=== PATIENT | female | born 1950 | race Caucasian/White ===

== ENCOUNTER 2019-09-23 16:39 | Inpatient (IN) | payer MEDICARE, SELFPAY ==
[2019-09-23] VITALS (11 sets, daily range): BP systolic 98–117; BP diastolic 51–71; PULSE 105–119; RESP 20–25; TEMP 36.3; O2SAT 89–99; BMI 68.8
--- NOTE | ~2019-09-23 | NM_ITS ---
EXAMINATION: NM lung vent and perfusion EXAM DATE: 09/25/2019 15:00 INDICATION: Pulmonary hypertension. Respiratory failure. TECHNIQUE: A ventilation perfusion lung scan was performed. The patient inhaled 10.1 mCi xenon-133 w hile images were acquired. The patient was then injected with 4.9 mCi technetium 99m MAA and reimage d. Comparison is made to prior examination from 03/22/2017. Correlation was made with chest x-ray 09/25. FINDINGS: There is normal single breath and equilibrium phase with retained tracer on the washout pha se of the ventilation scan, some air trapping. Some heterogeneity to the perfusion overall with 2 mor e focal subsegmental regions of decreased activity in right upper lobe, lingula. Previous scan had a normal appearing perfusion results. Intermediate probability pulmonary embolism. IMPRESSION: Intermediate probability pulmonary embolism. Reviewed, dictated and finalized at location B. ACE MECHANIC
--- NOTE | ~2019-09-23 | XR_ITS ---
XR knee LT 2V, XR knee RT 2V 09/25/2019 15:16 Indication: Bilateral knee pain. Lymphedema. Procedure: 2 views of each knee Comparison: No prior studies for comparison. Findings: There is severe bilateral tricompartment osteoarthritis of the knees. No significant joint effusion. No acute fracture or traumatic malalignment. Moderate diffuse subcutaneous edema. 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 Reviewed, dictated and finalized at location A. 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
--- NOTE | ~2019-09-23 | US_ITS ---
EXAMINATION: US right upper quadrant EXAM DATE: 09/24/2019 13:28 INDICATION: Elevated liver function tests. TECHNIQUE: Multiple grayscale and Doppler images of the abdomen right upper quadrant were obtained (b y a technologist who performed the scan) and subsequently reviewed. There is no prior study for madelyn burton. FINDINGS: The pancreatic head and body are normal in appearance. The pancreatic tail is not visualized. The l iver has normal echogenicity and contour. There are no focal liver lesions identified. There is no evidence of intrahepatic biliary duct dilation. Portal venous flow was seen in the hepatopedal, nor mal direction and has normal Doppler waveform. No right-sided hydronephrosis. Common bile duct measures 5 mm, which is normal. The gallbladder wall is mildly thickened. Mild amoun t of gallbladder distention. No cholelithiasis or pericholecystic fluid. Technologist performing exa m reports patient did not demonstrate sonographic Sexton's sign. Please note that this sign is less reliable in patients who have received pain medication. IMPRESSION: Mildly thickened gallbladder wall measurement, nonspecific finding. No cholelithiasis, bi liary duct dilation, pericholecystic fluid or sonographic Sexton's sign. Reviewed, dictated and finalized at location A. ER SUPERVISOR IMPRESSION: Mildly thickened gallbladder wall measurement, nonspecific finding. No cholelithiasis, biliary duct dilation, pericholecystic fluid or sonographic Sexton's sign.
--- NOTE | ~2019-09-23 | XR_ITS ---
EXAMINATION: XR chest 2V EXAM DATE: 09/25/2019 15:15 INDICATION: Follow-up CHF, pneumonia. TECHNIQUE: Frontal and lateral projections of the chest obtained and reviewed. Comparison is made to prior examination from 09/23/2019. FINDINGS: There is cardiomegaly. Pulmonary vascular congestion. No confluent consolidation, pneumoth orax or pleural effusion suspected. There are no osseous abnormalities identified. IMPRESSION: Cardiomegaly, pulmonary vascular congestion. Reviewed, dictated and finalized at location B. NOL QUALITY LEADER
--- NOTE | ~2019-09-23 | XR_ITS ---
EXAMINATION: XR chest 1V portable EXAM DATE: 09/23/2019 18:11 INDICATION: Shortness of breath, hypoxia. TECHNIQUE: Portable AP frontal chest x-ray was obtained. Comparison is made to prior examination from 03/22/2017. FINDINGS: Mild cardiomegaly and pulmonary vascular congestion. Possible mild pulmonary edema. No conf luent consolidation or pneumothorax. No sizable pleural effusion. There are mild bony degenerative ch anges. IMPRESSION: Interval development of findings suspicious for mild CHF exacerbation. Reviewed, dictated and finalized at location A. ERCIAL CLEANER IMPRESSION: Interval development of findings suspicious for mild CHF exacerbati on.
--- NOTE | ~2019-09-23 | US_ITS ---
EXAMINATION:US venous doppler LE BI INDICATION:Leg swelling TECHNIQUE: Multiple grayscale, color flow and Doppler images of the lower extremity deep venous syste ms were obtained and reviewed. COMPARISON:No prior studies for comparison FINDINGS: The common femoral, superficial femoral and popliteal veins demonstrate normal respiratory variation, augmentation and compressibility. Color flow is also seen within the posterior tibial, gr eater saphenous and profunda veins. Peroneal veins not visualized due to patient body habitus. IMPRESSION: 1: No lower extremity deep venous thrombosis. Reviewed, dictated and finalized at location A. EL REGISTERED NURSE PACU
--- NOTE | ~2019-09-23 | US_ITS ---
EXAMINATION: US arterial ankle brachial ind EXAM DATE: 09/24/2019 13:32 INDICATION: Toe discoloration. TECHNIQUE: Segmental pressures and plethysmographic and Doppler waveforms of the brachial and lower e xtremity arteries were obtained. There is no prior study for comparison. FINDINGS: Right and left brachial artery pressures of 102 mm Hg and 115 mm Hg, respectively, are concordant (no rmal difference <= 30 mmHg). RIGHT LEG: The ankle-brachial index (EDEN) is 1.17 (normal >= 0.9-1). The great toe-brachial index (TBI) is 0.64 (normal >= 0.65). The lower extremity ratios, segmental pressure gradients as follows; Dorsalis pedis: 1.17 (134 mmHg). Posterior tibial: 1.17 (135 mmHg). (Normal gradients <= 20-30 mmHg between adjacent levels on the same leg or the same levels on the two legs). Arterial waveforms are biphasic. LEFT LEG: The ankle-brachial index (EDEN) is 1.35 (normal >= 0.9-1). The great toe-brachial index (TBI) is 0.74 (normal >= 0.65). The lower extremity ratios, segmental pressure gradients as follows; Dorsalis pedis: 1.35 (155 mmHg). Posterior tibial: 130 (150 mmHg). (Normal gradients <= 20-30 mmHg between adjacent levels on the same leg or the same levels on the two legs). Arterial waveforms are biphasic. IMPRESSION: 1. Right ankle-brachial index 1.17, normal. 2. Left ankle-brachial index 1.35, normal. 3. Segmental pressures as above. Reviewed, dictated and finalized at location A. F NURSE
--- NOTE | 2019-09-23 17:13 | ED.URI ---
HPI - URI/Sore Throat General Chief Complaint: Upper Respiratory Infection Stated Complaint: sob Time Seen by Provider: 09/23/19 17:10 Source: patient and RN notes reviewed Mode of arrival: EMS Limitations: no limitations History of Present Illness HPI Narrative: Pt is a 69 y/o female who presents to the ED, via EMS from her home in [place], with c/o SOB for the past 3 days which was worse prior to EMS arrival. Pt notes that she has had a green/yellow productive cough for at least a week. She also has had N/V at the weirdest times , but denies any emesis today, and reports a grabbing ABD pain that lets off (no ABD pain in the ED room). Pt denies CP. The catheter she is wearing was put in place in the ED and she doesn't normally have one. Pt has a Hx of COPD, though she is not on home O2 (she did used to be, but the prescription ran out and she wasn't unable to make it to a new sleep study) and she denies smoking. She also has a Hx of HTN, nighttime incontinence, lymphedema, being on Lasix, being on a baby ASA, and not walking since January 2019 (she is unsure what led to her no longer walking). Pt's PCP is Dr. Stewart. elicited complaint: other (SOB) Pertinent past history: COPD Onset (ago): day(s) (3) Associated symptoms: abdominal pain ( grabbing characterization), nausea and vomiting Related Data Home Medications Medication Instructions Recorded Confirmed albuterol sulfate 90 mcg/actuation 2 inhalation INHALATION BID gm 09/01/19 09/01/19 aerosol inhaler atorvastatin 80 mg tablet 80 mg PO DAILY 09/01/19 09/01/19 cyclobenzaprine 10 mg tablet 10 mg PO TID PRN 09/01/19 09/01/19 furosemide 40 mg tablet 20 mg PO QAM tablet 09/01/19 09/01/19 insulin detemir U-100 100 unit/mL 100 unit SUB-Q DAILY 09/01/19 09/01/19 subcutaneous solution oxybutynin chloride 5 mg tablet 5 mg PO DAILY 09/01/19 09/01/19 Allergies Allergy/AdvReac Type Severity Reaction Status Date / Time NSAIDS (Non-Steroidal Allergy Unknown unknown Verified 09/01/19 14:57 Anti-Inflamma Review of Systems Review of Systems: All systems reviewed & are unremarkable except as noted in HPI and below Cardiovascular: Cardiovascular: Denies chest pain Respiratory: Respiratory: Reports cough (green/yellow production) and Reports dyspnea Gastrointestinal: Gastrointestinal: Reports abdominal pain ( grabbing characterization), Reports nausea and Reports vomiting PMFSH Past Medical History Medical History (Updated 09/24/19 @ 00:36 by Maki Sahu MD) CHF (congestive heart failure) CKD (chronic kidney disease), stage III COPD (chronic obstructive pulmonary disease) Degenerative joint disease Depression Depression with anxiety With history of panic attacks Diabetic polyneuropathy Diverticulosis Essential (primary) hypertension Hiatal hernia Hyperlipidemia Irritable bowel syndrome Lymphedema of both lower extremities Morbid obesity with BMI of 60.0-69.9, adult CIRILO (obstructive sleep apnea) Overactive bladder With chronic urinary incontinence Beal catheter placed in the ER Panic disorder [episodic paroxysmal anxiety] Polyarthritis of multiple sites Restless leg syndrome Sciatica Spondylosis Type 2 diabetes mellitus treated with insulin Surgical History Surgical History (Updated 09/23/19 @ 18:04 by Viktoriya Merlos) No pertinent past surgical history Social History Social History Smoking status: Never smoker Second hand tobacco smoke exposure: Yes Alcohol intake: former Substance use: current Substance use type: marijuana Other substance usage details: XANAX Gender identity (if verbalized by the patient): Female Spiritual care concerns: No Agree to blood products: Yes Exam Const: General: no acute distress and alert Nutritional Appearance: obese morbidly obese Orientation/consciousness: patient oriented x3 HENMT: Head: normocephalic, atraumatic and no acral cyan
--- NOTE | 2019-09-23 17:15 | PC.NURSE ---
pts bed changed of foul smelling urine soaked chux pads
--- NOTE | 2019-09-23 17:21 | ECG_ITS ---
Measurements Intervals [place] Rate: 88 P: 18 WY: 127 QRS: -3 QRSD: 94 T: 11 QT: 322 QTc: 390 Interpretive Statements SINUS RHYTHM BORDERLINE T WAVE ABNORMALITY- INFERIOR LEADS BORDERLINE ECG Electronically Signed On 09-23-2019 17:45:26 VELVET WEAVER by Dario Dudley D.O.
[2019-09-23] MEDS: IPRATROPIUM BR 0.02% INH SOLN 0.5 MG/2.5 ML VIAL INHALATION (17:35)
[2019-09-23] MEDS: ALBUTEROL SULFATE NEB 2.5 MG/0.5 ML INH 5 MG INHALATION (17:35)
[2019-09-23 17:45] LABS: Alveolar/Arterial O2 Gradient 61.8 mmHg; Carboxyhemoglobin 1.4 % THb (0-2.0); Fractional Inspired Oxygen 28 %; HCO3 ABG 25.8 mEq/l (22.0-26.0); Methemoglobin ABG 0.3 %THb (0-1.5); Oxygen Content ABG 10.6 %vol (16.0-22.0); Oxygen Saturation ABG 92.9 % (95.0-100.0); Oxyhemoglobin 89.5 % THb (90.0-100.0); PCO2 ABG 54.6 mmHg (35.0-45.0); PO2 ABG 73.4 mmHg (80.0-100.0); PO2 FiO2 Ratio Arterial Blood 2.62 %; Reduced Hemoglobin 8.8 %THb (0-5.0); Total Hemoglobin 8.3 g/dL (12.0-18.0); pH ABG 7.292 (7.350-7.450)
[2019-09-23 17:46] LABS: Device NASAL CANNULA; Modified Allen's Test Pass; Site Drawn LEFT RADIAL
[2019-09-23 17:48] LABS: Basophils Absolute Auto 0.1 K/mm3 (0.0-0.1); Basophils Percent Auto 0.3 % (0.2-1.2); Hematocrit 27.9 % (37.0-47.0); Hemoglobin 7.3 g/dL (12.0-15.0); Immature Granulocyte Absolute 0.39 K/mm3 (0.00-0.031); Immature Granulocyte Percent A 1.4 % (0-0.5); Lymphocytes Absolute Auto 1.14 K/mm3 (0.9-3.2); Mean Corpuscular HGB Conc 26.2 g/dl (32-36); Mean Corpuscular Hemoglobin 20.5 pg (26-34); Mean Corpuscular Volume 78.4 fl (80-100); Mean Platelet Volume 10.4 fl (7.4-10.4); Monocytes Absolute Auto 1.9 K/mm3 (0.1-0.6); Monocytes Percent Auto 6.7 % (2.6-8.5); Neutrophils Absolute Auto 24.7 K/mm3 (1.3-6.7); Neutrophils Percent Auto 87.6 % (45.5-73.1); Nucleated Red Blood Cells Perc 0.1 % (0.0-0.2); Platelet Count Result 387 k/mm3 (150-375); Red Blood Count 3.56 M/mm3 (4.2-5.4); White Blood Count 28.2 K/mm3 (4.5-10.0)
[2019-09-23 17:53] LABS: Add Urine Microscopic? YES; Appearance Urine Cloudy (Clear); Bacteria Urine Trace /hpf; Bilirubin Urine Negative (Negative); Color Urine Yellow (Yellow); Glucose Urine UA Negative (Negative); Ketones Urine Negative (Negative); Leukocyte Esterase Ur Trace LEU/UL (Negative); Mucus Urine Rare /lpf; Nitrate Urine Negative (Negative); Protein Urine 2+ mg/dL (Negative); WBC Clumps Urine Present /HPF; WBC Urine 16-20 /hpf
[2019-09-23 17:57] LABS: Blood Urine Negative (Negative)
[2019-09-23 18:00] LABS: INR 1.5; Prothrombin Time 17.6 Seconds (11.1-14.7)
[2019-09-23 18:01] LABS: Partial Thromboplastin Time 35.4 SECONDS (22.3-36.8)
[2019-09-23 18:02] LABS: Anisocytosis 1+ (NORMAL); Hypochromasia 2+ (NORMAL); Platelet Estimate Increased (Adequate); Stomatocytes 1+ (NORMAL)
[2019-09-23 18:03] LABS: Alanine Aminotransferase 522 U/L (4-35); Albumin Level 3.3 g/dL (3.5-5.1); Alkaline Phosphatase 151 U/L (38-126); Bilirubin,Total 1.3 mg/dL (0.2-1.3); Blood Urea Nitrogen 59 mg/dL (7-17); Calcium 8.6 mg/dL (8.4-10.2); Carbon Dioxide 24 mmol/L (22-30); Chloride 93 mmol/L (98-107); Estimated Glomerular Filt Rate 28; Glucose 81 mg/dL (65-105); Lactic Acid Reflex 4.3 mmol/L (0.7-2.1); Potassium 5.1 mmol/L (3.4-5.0); Sodium 132 mmol/L (137-145)
[2019-09-23 18:13] LABS: Aspartate Amino Transferase 1167 U/L (14-36)
[2019-09-23 18:16] LABS: NT Pro B Type Natriuretic Pept 14600 PG/ML (5-100); Troponin I 0.075 ng/mL (0.000-0.034)
[2019-09-23] MEDS: FUROSEMIDE INJ 40 MG/4 ML VIAL IV PUSH (18:50)
[2019-09-23 19:01] LABS: Creatine Kinase 107 U/L (30-135)
[2019-09-23 19:26] LABS: Iron 18 ug/dL (37-170)
--- NOTE | 2019-09-23 19:35 | PC.NURSE ---
Assumed care of patient from PATTI Arceo. Pt sleeping in stretcher with BiPAP in place in NAD, VSS, call light within reach, will continue to monitor.
[2019-09-23 19:36] LABS: Percent Iron Saturation 6 % (20-50)
[2019-09-23 20:10] LABS: Folic Acid 12.8 ng/mL (2.76->20); Vitamin B12 > 1000.0 pg/mL (239-931)
[2019-09-23 20:46] LABS: Reflex Lactic Acid Yes or No Add Lactic
[2019-09-23 21:45] LABS: Lactic Acid 4.1 mmol/L (0.7-2.1)
[2019-09-23 21:59] LABS: Troponin I 0.075 ng/mL (0.000-0.034)
--- NOTE | 2019-09-23 22:34 | PM.IMHP ---
H&P: HPI History of Present Illness Chief complaint: Shortness of breath Narrative: Delilah Ludwig is a 69 year old female with a past medical history of morbid obesity with BMI greater than 60, diabetes mellitus, and CHF who presented to the ER with increased shortness of breath and upper respiratory symptoms. Source of information is ER records and outpatient visit records. The patient is unable to provide any history. Family history was obtained by the nursing staff from the patient's significant other. The patient arouses to her name and physical stimulation. However, the patient is not answering questions. Multiple attempts were made to arouse the patient but she would not answer questions. She did stick her tongue out at me when I requested but otherwise was refusing to follow commands. Nursing staff had to hold the patient's arm while blood was being drawn because she was jerking away. The patient had evidently complained of discoloration of her toes when she would sit with her legs elevated. An outpatient EDEN was ordered by her primary care physician of few days ago but has not been completed. The patient was evidently soiled with significant urine and or stool in the ER. The patient has not ambulated in the last 6 months or so The patient has multiple dental caries and has not followed up with a dentist. Her CPAP at home is broken in his missing multiple parts. The patient is supposed to have an outpatient sleep study but requires a wheelchair van for transport. Patient's significant other reports that the wheelchair transport services will not run the hours of a sleep study. Review of Systems Review of Systems: ROS unobtainable: unobtainable due to mental condition PMFSH Past Medical History Medical History (Updated 09/24/19 @ 01:40 by Trista Garcia DO) CHF (congestive heart failure) CKD (chronic kidney disease), stage III COPD (chronic obstructive pulmonary disease) Degenerative joint disease Depression Depression with anxiety With history of panic attacks Diabetic polyneuropathy Diverticulosis Essential (primary) hypertension Hiatal hernia Small hiatal hernia noted on barium swallow performed due to dysphagia and sensation of globus. Of the mid distal esophagus, repeated mid distal esophageal reflux Hyperlipidemia Irritable bowel syndrome Lymphedema of both lower extremities Morbid obesity with BMI of 60.0-69.9, adult CIRILO (obstructive sleep apnea) Overactive bladder With chronic urinary incontinence Beal catheter placed in the ER Panic disorder [episodic paroxysmal anxiety] Polyarthritis of multiple sites Restless leg syndrome Sciatica Spondylosis Type 2 diabetes mellitus treated with insulin Surgical History Surgical History (Updated 09/23/19 @ 18:04 by Viktoriya Merlos) No pertinent past surgical history Social History Social History (Updated 09/24/19 @ 01:17 by Trista Garcia, DO) Social History: The patient lives at home with her long-term significant other. 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 She has never smoked but does have significant secondhand smoke exposure. She drinks a small amount of alcohol on rare occasion. She does have a history of marijuana use. The patient is wheelchair-bound. Primary care physician: Dr. Braulio Stewart Code status: Full code per EMR Smoking status: Never smoker Second hand tobacco smoke exposure: Yes Alcohol intake: former Substance use: current Substance use type: marijuana Other substance usage details: XANAX Gender identity (if verbalized by the patient): Female Spiritual care concerns: No Agree to blood products: Yes Meds Home Medications and Allergies Home Medications Medication Instructions Recorded Confirmed Type lisinopril 20 mg tablet 20 mg PO DAILY #90 tablet 07/17/19 09/24/19 Rx ropinirole 2 mg tablet 2 mg PO BID #180 tablet 07/21/19 09/24/19 Rx esomeprazole magnesium 20 mg 20 mg PO DAILY #90 cap
[2019-09-23] MEDS: SODIUM CHLORIDE 0.9% IV 500 ML IV CONT (23:45)
[2019-09-24] VITALS (28 sets, daily range): BP systolic 90–122; BP diastolic 43–76; PULSE 93–122; RESP 20–25; TEMP 36.1–36.8; O2SAT 93–100
--- NOTE | 2019-09-24 | ECHO_ITS ---
Patient Info Name: Delilah Ludwig Age: 69 years : 1950 Gender: Female Ht: 60 in Wt: 352 lbs BSA: 2.72 m2 HR: 72 bpm BP: 99 / 46 mmHg Heart Rhythm: Sinus Rhythm Technical Quality: Fair Exam Date: 09/24/2019 12:00 PM Exam Location: [facility] Card Pulmonary Patient Status: Inpatient Admit Date: 09/23/2019 Staff Ordering Physician: Trista Garcia DO Sorter/Assay Tech: Maine Rivas RDCS Attending Provider: Erick Bolden MD Referring Physician: Jose DORSEY; Exam Type: CA echo doppler color flow Study Info Complete two-dimensional, color flow and Doppler transthoracic echocardiogram is performed. Appropriate Use Criteria Pt on cpap. Summary 1. Left ventricular chamber dimension is normal. 2. Left ventricular systolic function is normal, estimated at 55-60%. 3. There is mildly increased left ventricular wall thickness. 4. The left ventricular diastolic function is grade I diastolic dysfunction. 5. Right ventricular chamber dimension is mildly enlarged. 6. Right ventricular systolic function is reduced. 7. D-shaped septum in systole consistent with RV pressure overload. 8. There is mild mitral valve regurgitation. 9. There is mild tricuspid valve regurgitation. 10. Moderate pulmonary hypertension, estimated pulmonary arterial systolic pressure is 50 mmHg. 11. There is mild pulmonic regurgitation. 12. Recommend CT with PE protocol or V/Q scan to R/O PE given RV dysfunction, RV pressure overload and symptoms of SOB. Left Ventricle Left ventricular chamber dimension is normal. Left ventricular systolic function is normal, estimated at 55-60%. There is mildly increased left ventricular wall thickness. The left ventricular diastolic function is grade I diastolic dysfunction. Right Ventricle Right ventricular chamber dimension is mildly enlarged. Right ventricular systolic function is reduced. D-shaped septum in systole consistent with RV pressure overload. Left Atria Left atrial chamber dimension is mildly enlarged. Right Atria Right atrial chamber dimension is normal. Aortic Valve The aortic valve is trileaflet. There is mild aortic valve sclerosis. There is no aortic valve stenosis. There is trace aortic valve regurgitation. Pulmonic Valve The pulmonic valve is normal. There is no pulmonic valve stenosis. There is mild pulmonic regurgitation. Mitral Valve The mitral valve has normal leaflets. There is no mitral valve stenosis. There is mild mitral valve regurgitation. Tricuspid Valve The tricuspid valve leaflets are normal. There is no significant tricuspid valve stenosis. There is mild tricuspid valve regurgitation. Moderate pulmonary hypertension, estimated pulmonary arterial systolic pressure is 50 mmHg. Other Findings Recommend CT with PE protocol or V/Q scan to R/O PE given RV dysfunction, RV pressure overload and symptoms of SOB. Pericardium/Pleural The pericardium appears normal. There is no pericardial effusion. Inferior Vena Cava Normal inferior vena cava with no collapse upon inspiration consistent with elevated right atrial pressure, 15 mmHg. Aorta The aortic root size at the sinus of Valsalva is normal. Left Ventricular Outflow Tract Name Value Normal LVOT 2D
[2019-09-24 00:05] LABS: Alveolar/Arterial O2 Gradient 102.3 mmHg; Base Excess ABG 0.5 mEq/l (+/-2.0); Carboxyhemoglobin 0.6 % THb (0-2.0); Fractional Inspired Oxygen 35 %; HCO3 ABG 26.8 mEq/l (22.0-26.0); Methemoglobin ABG 0.7 %THb (0-1.5); Oxygen Content ABG 9.6 %vol (16.0-22.0); Oxygen Saturation ABG 95.6 % (95.0-100.0); Oxyhemoglobin 92.2 % THb (90.0-100.0); PCO2 ABG 53.1 mmHg (35.0-45.0); PO2 ABG 85.5 mmHg (80.0-100.0); PO2 FiO2 Ratio Arterial Blood 2.44 %; Reduced Hemoglobin 6.5 %THb (0-5.0); pH ABG 7.321 (7.350-7.450)
[2019-09-24 00:08] LABS: Device NON-INVASIVE VENT; Modified Allen's Test Pass; Non-Invasive Expiratory Pressure 8 CMH2O; Non-Invasive Inspiratory Pressure 16 CMH2O; Non-Invasive Vent Rate 20 /MIN; Site Drawn RIGHT RADIAL; Total Hemoglobin 7.3 g/dL (12.0-18.0)
[2019-09-24 01:02] LABS: Troponin I 0.073 ng/mL (0.000-0.034)
[2019-09-24 01:11] LABS: Glucose Point of Care 107 (65-105)
[2019-09-24 01:47] LABS: Lactic Acid Reflex 2.5 mmol/L (0.7-2.1)
--- NOTE | 2019-09-24 01:48 | ADMGEN ---
This patient, Delilah Ludwig, was admitted to IMU Room 211-01. Patient/family oriented to hospital policies and general routines including ID bracelet, bed and alarms, visiting hours, pain management, procedures, bathroom and other care routines, personal items, smoking policy, room service/diet, and visiting hours. Valuables list has been completed. Information on how to activate the Rapid Response Team has been discussed. Patient/Family are encouraged to report perceived risks to care and to ask questions if they do not understand what they are told or what they should do.
[2019-09-24] MEDS: LACTATED RINGERS 1,000 ML 125 ML IV CONT (01:55)
[2019-09-24] MEDS: IPRATROPIUM BR 0.02% INH SOLN 0.5 MG/2.5 ML VIAL INHALATION ×4 (02:45→20:20)
[2019-09-24] MEDS: ALBUTEROL SULFATE NEB 2.5 MG/0.5 ML INH 5 MG INHALATION ×4 (02:45→20:20)
[2019-09-24 03:34] LABS: Amphetamine Screen Urine Negative (Negative); Barbiturate Screen Urine Negative (Negative); Benzodiazepines Screen Urine Negative (Negative); Cannabinoid Screen Urine Negative (Negative); Cocaine Screen Urine Negative (Negative); Methadone Screen Urine Negative (Negative); Opiate Screen Urine Negative (Negative); Phencyclidine Screen Urine Negative (Negative)
[2019-09-24 05:32] LABS: Basophils Absolute Auto 0.1 K/mm3 (0.0-0.1); Basophils Percent Auto 0.4 % (0.2-1.2); Eosinophils Percent Auto 0.2 % (0-4.4); Hematocrit 26.1 % (37.0-47.0); Immature Granulocyte Absolute 0.22 K/mm3 (0.00-0.031); Immature Granulocyte Percent A 1.1 % (0-0.5); Lymphocytes Absolute Auto 0.88 K/mm3 (0.9-3.2); Lymphocytes Percent Auto 4.2 % (18.3-44.2); Mean Corpuscular HGB Conc 25.7 g/dl (32-36); Mean Corpuscular Hemoglobin 20.1 pg (26-34); Mean Corpuscular Volume 78.4 fl (80-100); Mean Platelet Volume 10.8 fl (7.4-10.4); Monocytes Absolute Auto 0.9 K/mm3 (0.1-0.6); Monocytes Percent Auto 4.3 % (2.6-8.5); Neutrophils Absolute Auto 18.7 K/mm3 (1.3-6.7); Neutrophils Percent Auto 89.8 % (45.5-73.1); Platelet Count Result 325 k/mm3 (150-375); Red Blood Count 3.33 M/mm3 (4.2-5.4); White Blood Count 20.9 K/mm3 (4.5-10.0)
[2019-09-24 05:47] LABS: Hepatitis B Surface Antigen Negative (Negative)
[2019-09-24 05:53] LABS: HAV RESULT Negative (Negative); Hepatitis B Core IgM Result Negative (Negative)
[2019-09-24 06:02] LABS: Glucose Point of Care 105 (65-105)
[2019-09-24 06:05] LABS: Hepatitis C Virus Antibody Negative (Negative)
[2019-09-24 06:19] LABS: Alanine Aminotransferase 624 U/L (4-35); Albumin Level 2.9 g/dL (3.5-5.1); Alkaline Phosphatase 138 U/L (38-126); Bilirubin,Total 0.9 mg/dL (0.2-1.3); Blood Urea Nitrogen 61 mg/dL (7-17); Calcium 8.3 mg/dL (8.4-10.2); Carbon Dioxide 29 mmol/L (22-30); Chloride 96 mmol/L (98-107); Estimated CRCL calculation 38 ml/min; Estimated Glomerular Filt Rate 26; Glucose 98 mg/dL (65-105); Potassium 4.5 mmol/L (3.4-5.0); Sodium 135 mmol/L (137-145)
[2019-09-24 06:25] LABS: Aspartate Amino Transferase 867 U/L (14-36)
[2019-09-24 06:40] LABS: Hemoglobin 6.7 g/dL (12.0-15.0)
[2019-09-24 06:57] LABS: Hemoglobin A1C 6.1 % (<5.7)
--- NOTE | 2019-09-24 10:08 | P.PNIM_ITS ---
Progress Note: A&P Assessment and Plan (1) Severe sepsis: Code(s): A41.9 - Sepsis, unspecified organism; R65.20 - Severe sepsis without septic shock Status: Acute Assessment and Plan: * pulmonary vs urinary source of infection * continue vanc and zosyn * await c/s results (2) Acute hypercapnic respiratory failure: Code(s): J96.02 - Acute respiratory failure with hypercapnia Status: Acute Assessment and Plan: * Likely due to sepsis with shock * Suspect chronic hypoventilation as well (3) CHF (congestive heart failure): Qualifiers: Heart failure chronicity: unspecified Heart failure type: unspecified Qualified Code(s): I50.9 - Heart failure, unspecified Code(s): I50.9 - Heart failure, unspecified Status: Acute Assessment and Plan: * echo pending * furosemide prior to blood transfusion (4) Iron deficiency anemia: Qualifiers: Iron deficiency anemia type: unspecified iron deficiency Qualified Code(s): D50.9 - Iron deficiency anemia, unspecified Code(s): D50.9 - Iron deficiency anemia, unspecified Status: Acute Assessment and Plan: * baseline hemoglobin near 12 in 2016 * iron studies c/w deficiency * check stool for occult blood * may need gi evaluation when stable * transfuse to maintain hemoglobin above 7 * give IV iron (5) Transaminitis: Code(s): R74.0 - Nonspecific elevation of levels of transaminase and lactic acid dehydrogenase [LDH] Status: Acute Assessment and Plan: * likely due to hypoperfusion * hepatitis serologies negative * ruq u/s 09/24 (6) Renal failure (ARF), acute on chronic: Qualifiers: Acute renal failure type: unspecified Chronic kidney disease stage: unspecified stage Qualified Code(s): N17.9 - Acute kidney failure, unspecified; N18.9 - Chronic kidney disease, unspecified Code(s): N17.9 - Acute kidney failure, unspecified; N18.9 - Chronic kidney disease, unspecified Status: Acute Assessment and Plan: * CKD3 by prior labs * baseline creatinine about 1.6 (7) COPD (chronic obstructive pulmonary disease): Qualifiers: COPD type: COPD with acute lower respiratory infection Qualified Code(s): J44.0 - Chronic obstructive pulmonary disease with (acute) lower respiratory infection Code(s): J44.9 - Chronic obstructive pulmonary disease, unspecified Status: Acute Assessment and Plan: * continue vanc, zosyn * continue bipap (8) Encephalopathy acute: Code(s): G93.40 - Encephalopathy, unspecified Status: Acute Assessment and Plan: * 09/24 resolved (9) Lactic acidosis: Code(s): E87.2 - Acidosis Status: Acute Assessment and Plan: * due to septic shock * resolving (10) Elevated troponin: Code(s): R79.89 - Other specified abnormal findings of blood chemistry Status: Acute Assessment and Plan: * due to ckd * no ACS Subjective Date/time seen: 09/24/19 10:08 Interval history: Admitted 09/23 with sob, hypotension, lactic acidosis, ABNL CXR (CHF vs PNA). Bipap overnight. Off for a few hours, then back on due to sob at rest. Denied pain of any sort. Denied GI/ changes. No cough. No bleeding. Review of Systems Review of Systems: All systems reviewed & are unremarkable except as noted in HPI and below Exam Narrative: Exam Narrative: HEENT: EOMI, PERRL, pharyngeal mucosa pink and intact NECK: No JVD CHEST:
--- NOTE | 2019-09-24 10:08 | PM.IMPN ---
Progress Note: A&P Assessment and Plan (1) Severe sepsis: Code(s): A41.9 - Sepsis, unspecified organism; R65.20 - Severe sepsis without septic shock Status: Acute Assessment and Plan: pulmonary vs urinary source of infection continue vanc and zosyn await c/s results (2) Acute hypercapnic respiratory failure: Code(s): J96.02 - Acute respiratory failure with hypercapnia Status: Acute Assessment and Plan: Likely due to sepsis with shock Suspect chronic hypoventilation as well (3) CHF (congestive heart failure): Qualifiers: Heart failure chronicity: unspecified Heart failure type: unspecified Qualified Code(s): I50.9 - Heart failure, unspecified Code(s): I50.9 - Heart failure, unspecified Status: Acute Assessment and Plan: echo pending furosemide prior to blood transfusion (4) Iron deficiency anemia: Qualifiers: Iron deficiency anemia type: unspecified iron deficiency Qualified Code(s): D50.9 - Iron deficiency anemia, unspecified Code(s): D50.9 - Iron deficiency anemia, unspecified Status: Acute Assessment and Plan: baseline hemoglobin near 12 in 2016 iron studies c/w deficiency check stool for occult blood may need gi evaluation when stable transfuse to maintain hemoglobin above 7 give IV iron (5) Transaminitis: Code(s): R74.0 - Nonspecific elevation of levels of transaminase and lactic acid dehydrogenase [LDH] Status: Acute Assessment and Plan: likely due to hypoperfusion hepatitis serologies negative ruq u/s 09/24 (6) Renal failure (ARF), acute on chronic: Qualifiers: Acute renal failure type: unspecified Chronic kidney disease stage: unspecified stage Qualified Code(s): N17.9 - Acute kidney failure, unspecified; N18.9 - Chronic kidney disease, unspecified Code(s): N17.9 - Acute kidney failure, unspecified; N18.9 - Chronic kidney disease, unspecified Status: Acute Assessment and Plan: CKD3 by prior labs baseline creatinine about 1.6 (7) COPD (chronic obstructive pulmonary disease): Qualifiers: COPD type: COPD with acute lower respiratory infection Qualified Code(s): J44.0 - Chronic obstructive pulmonary disease with (acute) lower respiratory infection Code(s): J44.9 - Chronic obstructive pulmonary disease, unspecified Status: Acute Assessment and Plan: continue vanc, zosyn continue bipap (8) Encephalopathy acute: Code(s): G93.40 - Encephalopathy, unspecified Status: Acute Assessment and Plan: 09/24 resolved (9) Lactic acidosis: Code(s): E87.2 - Acidosis Status: Acute Assessment and Plan: due to septic shock resolving (10) Elevated troponin: Code(s): R79.89 - Other specified abnormal findings of blood chemistry Status: Acute Assessment and Plan: due to ckd no ACS Subjective Date/time seen: 09/24/19 10:08 Interval history: Admitted 09/23 with sob, hypotension, lactic acidosis, ABNL CXR (CHF vs PNA). Bipap overnight. Off for a few hours, then back on due to sob at rest. Denied pain of any sort. Denied GI/ changes. No cough. No bleeding. Review of Systems Review of Systems: All systems reviewed & are unremarkable except as noted in HPI and below Exam Narrative: Exam Narrative: HEENT: EOMI, PERRL, pharyngeal mucosa pink and intact NECK: No JVD CHEST: Clear to auscultation with decreased BS at LLs. Mildly tachypneic. HEART: NL S1/S2, regular, no murmur ABDOMEN: BS+, soft, nontender, no mass, no bruits EXTREMITIES: No cyanosis, edema, or clubbing. No palpable pedal pulses. NEUROLOGIC: CN intact and symmetric to inspection. MUSCULOSKELETAL: Tone and strength symmetric. PSYCH: Alert. Oriented to person, place, and time. Objective Data Vital Signs Vital Signs: Vital Signs - 24 hr 09/23/19 16:36 09/23/19 17:17 09/23/19 17:37
[2019-09-24 11:10] LABS: Alveolar/Arterial O2 Gradient 102.5 mmHg; Base Excess ABG 2.4 mEq/l (+/-2.0); Fractional Inspired Oxygen 35 %; HCO3 ABG 28.6 mEq/l (22.0-26.0); Oxygen Content ABG 10.4 %vol (16.0-22.0); Oxygen Saturation ABG 95.6 % (95.0-100.0); Oxyhemoglobin 93.1 % THb (90.0-100.0); PCO2 ABG 53.9 mmHg (35.0-45.0); PO2 ABG 84.4 mmHg (80.0-100.0); PO2 FiO2 Ratio Arterial Blood 2.41 %; pH ABG 7.342 (7.350-7.450)
[2019-09-24 11:16] LABS: Device NON-INVASIVE VENT; Modified Allen's Test Pass; Site Drawn RIGHT RADIAL; Total Hemoglobin 7.8 g/dL (12.0-18.0)
[2019-09-24 11:17] LABS: Non-Invasive Expiratory Pressure 8 CMH2O; Non-Invasive Inspiratory Pressure 16 CMH2O; Non-Invasive Vent Rate 20 /MIN
[2019-09-24 12:49] LABS: Glucose Point of Care 95 (65-105)
[2019-09-24] MEDS: TUBING, BLOOD PLUM PUMP TUBING 1 EACH XX (14:58)
[2019-09-24] MEDS: SODIUM CHLORIDE 0.9% IV 250 ML 30 ML IV CONT (14:58)
[2019-09-24] MEDS: FUROSEMIDE INJ 40 MG/4 ML VIAL IV PUSH (15:44)
[2019-09-24 18:10] LABS: Glucose Point of Care 87 (65-105)
[2019-09-24 20:05] LABS: Hematocrit 29.9 % (37.0-47.0); Hemoglobin 8.1 g/dL (12.0-15.0)
[2019-09-24 20:17] LABS: Blood Urea Nitrogen 62 mg/dL (7-17); Calcium 8.4 mg/dL (8.4-10.2); Carbon Dioxide 31 mmol/L (22-30); Chloride 93 mmol/L (98-107); Estimated CRCL calculation 35 ml/min; Estimated Glomerular Filt Rate 23; Glucose 129 mg/dL (65-105); Potassium 4.4 mmol/L (3.4-5.0); Sodium 132 mmol/L (137-145)
[2019-09-25] VITALS (19 sets, daily range): BP systolic 97–143; BP diastolic 48–74; PULSE 109–124; RESP 18–23; TEMP 36.9–38.2; O2SAT 84–97
[2019-09-25] MEDS: LACTATED RINGERS 1,000 ML 100 ML IV CONT (00:02)
[2019-09-25] MEDS: IPRATROPIUM BR 0.02% INH SOLN 0.5 MG/2.5 ML VIAL INHALATION ×4 (02:16→20:26)
[2019-09-25] MEDS: ALBUTEROL SULFATE NEB 2.5 MG/0.5 ML INH 5 MG INHALATION ×4 (02:16→20:26)
[2019-09-25 04:37] LABS: Alveolar/Arterial O2 Gradient 113.8 mmHg; Base Excess ABG 5.5 mEq/l (+/-2.0); Fractional Inspired Oxygen 35 %; HCO3 ABG 31.7 mEq/l (22.0-26.0); Oxygen Content ABG 13.2 %vol (16.0-22.0); Oxygen Saturation ABG 93.8 % (95.0-100.0); Oxyhemoglobin 92.2 % THb (90.0-100.0); PO2 ABG 71.8 mmHg (80.0-100.0); PO2 FiO2 Ratio Arterial Blood 2.05 %; Total Hemoglobin 10.1 g/dL (12.0-18.0); pH ABG 7.378 (7.350-7.450)
[2019-09-25 04:38] LABS: Device NON-INVASIVE VENT; Modified Allen's Test Pass; Site Drawn LEFT RADIAL
[2019-09-25 04:39] LABS: Non-Invasive Expiratory Pressure 8 CMH2O; Non-Invasive Inspiratory Pressure 16 CMH2O; Non-Invasive Vent Rate 20 /MIN
[2019-09-25 05:10] LABS: Hematocrit 27.6 % (37.0-47.0); Hemoglobin 7.4 g/dL (12.0-15.0); Mean Corpuscular HGB Conc 26.8 g/dl (32-36); Mean Corpuscular Volume 78.2 fl (80-100); Platelet Count Result 289 k/mm3 (150-375); Red Blood Count 3.53 M/mm3 (4.2-5.4); Red Cell Distribution Width 21.2 % (11.5-14.5); White Blood Count 12.6 K/mm3 (4.5-10.0)
[2019-09-25 05:18] LABS: Blood Urea Nitrogen 62 mg/dL (7-17); Calcium 8.2 mg/dL (8.4-10.2); Carbon Dioxide 31 mmol/L (22-30); Chloride 94 mmol/L (98-107); Estimated CRCL calculation 38 ml/min; Estimated Glomerular Filt Rate 26; Glucose 114 mg/dL (65-105); Potassium 4.1 mmol/L (3.4-5.0); Sodium 133 mmol/L (137-145)
[2019-09-25 05:19] LABS: Alanine Aminotransferase 467 U/L (4-35); Albumin Level 2.7 g/dL (3.5-5.1); Alkaline Phosphatase 143 U/L (38-126); Aspartate Amino Transferase 332 U/L (14-36); Bilirubin,Total 1.1 mg/dL (0.2-1.3)
[2019-09-25 08:44] LABS: Glucose Point of Care 101 (65-105)
--- NOTE | 2019-09-25 11:28 | P.PNIM_ITS ---
Progress Note: A&P Assessment and Plan (1) Severe sepsis: Code(s): A41.9 - Sepsis, unspecified organism; R65.20 - Severe sepsis without septic shock Status: Acute Assessment and Plan: * pulmonary vs urinary source of infection * Urine growing proteus * continue zosyn day 3 (stop vanc) * await ID/sens results * 09/25 trasfer from IMU to medical floor and try PT/OT (although baseline functional status is poor) (2) Acute hypercapnic respiratory failure: Code(s): J96.02 - Acute respiratory failure with hypercapnia Status: Acute Assessment and Plan: * Likely due to sepsis with shock * Suspect chronic hypoventilation as well * Bipap at 16/8, FIO2 35%, rate 20 at night * O2 3 LPM daytime * Home oxygen evaluation prior to discharge (3) CHF (congestive heart failure): Qualifiers: Heart failure chronicity: unspecified Heart failure type: unspecified Qualified Code(s): I50.9 - Heart failure, unspecified Code(s): I50.9 - Heart failure, unspecified Status: Acute Assessment and Plan: * echo with right ventricular dysfunction, pulmonary hypertension * furosemide 40mg iv daily * 09/25 NM VQ lung scan and repeat CXR pending (4) Iron deficiency anemia: Qualifiers: Iron deficiency anemia type: unspecified iron deficiency Qualified Code(s): D50.9 - Iron deficiency anemia, unspecified Code(s): D50.9 - Iron deficiency anemia, unspecified Status: Acute Assessment and Plan: * baseline hemoglobin near 12 in 2016 * iron studies c/w deficiency * hgb 6.7 09/24 and required 1 U PRBC * check stool for occult blood * may need gi evaluation when stable * transfuse to maintain hemoglobin above 7 * gave IV iron 09/24 (5) Transaminitis: Code(s): R74.0 - Nonspecific elevation of levels of transaminase and lactic acid dehydrogenase [LDH] Status: Acute Assessment and Plan: * likely due to hypoperfusion * hepatitis serologies negative * ruq u/s 09/24 negative (6) Renal failure (ARF), acute on chronic: Qualifiers: Acute renal failure type: unspecified Chronic kidney disease stage: unspecified stage Qualified Code(s): N17.9 - Acute kidney failure, unspecified; N18.9 - Chronic kidney disease, unspecified Code(s): N17.9 - Acute kidney failure, unspecified; N18.9 - Chronic kidney disease, unspecified Status: Acute Assessment and Plan: * CKD3 by prior labs * baseline creatinine about 1.6 * 09/25 creatinine 1.9 (may be new baseline) (7) COPD (chronic obstructive pulmonary disease): Qualifiers: COPD type: COPD with acute lower respiratory infection Qualified Code(s): J44.0 - Chronic obstructive pulmonary disease with (acute) lower respiratory infection Code(s): J44.9 - Chronic obstructive pulmonary disease, unspecified Status: Acute Assessment and Plan: * continue bronchodilators * continue bipap at night (8) Encephalopathy acute: Code(s): G93.40 - Encephalopathy, unspecified Status: Acute Assessment and Plan: * 09/24 resolved (9) Lactic acidosis: Code(s): E87.2 - Acidosis Status: Acute Assessment and Plan: * due to septic shock * resolved (10) Elevated troponin: Code(s): R79.89 - Other specified abnormal findings of blood chemistry Status: Acute Assessment and Plan: * due to ckd * no ACS (11) Diabetic polyneuropathy: Code(s): E11.42 - Type 2 diabetes mellitus with diabetic polyneuropathy Status:
--- NOTE | 2019-09-25 11:28 | PM.IMPN ---
Progress Note: A&P Assessment and Plan (1) Severe sepsis: Code(s): A41.9 - Sepsis, unspecified organism; R65.20 - Severe sepsis without septic shock Status: Acute Assessment and Plan: pulmonary vs urinary source of infection Urine growing proteus continue zosyn day 3 (stop vanc) await ID/sens results 09/25 trasfer from IMU to medical floor and try PT/OT (although baseline functional status is poor) (2) Acute hypercapnic respiratory failure: Code(s): J96.02 - Acute respiratory failure with hypercapnia Status: Acute Assessment and Plan: Likely due to sepsis with shock Suspect chronic hypoventilation as well Bipap at 16/8, FIO2 35%, rate 20 at night O2 3 LPM daytime Home oxygen evaluation prior to discharge (3) CHF (congestive heart failure): Qualifiers: Heart failure chronicity: unspecified Heart failure type: unspecified Qualified Code(s): I50.9 - Heart failure, unspecified Code(s): I50.9 - Heart failure, unspecified Status: Acute Assessment and Plan: echo with right ventricular dysfunction, pulmonary hypertension furosemide 40mg iv daily 09/25 NM VQ lung scan and repeat CXR pending (4) Iron deficiency anemia: Qualifiers: Iron deficiency anemia type: unspecified iron deficiency Qualified Code(s): D50.9 - Iron deficiency anemia, unspecified Code(s): D50.9 - Iron deficiency anemia, unspecified Status: Acute Assessment and Plan: baseline hemoglobin near 12 in 2016 iron studies c/w deficiency hgb 6.7 09/24 and required 1 U PRBC check stool for occult blood may need gi evaluation when stable transfuse to maintain hemoglobin above 7 gave IV iron 09/24 (5) Transaminitis: Code(s): R74.0 - Nonspecific elevation of levels of transaminase and lactic acid dehydrogenase [LDH] Status: Acute Assessment and Plan: likely due to hypoperfusion hepatitis serologies negative ruq u/s 09/24 negative (6) Renal failure (ARF), acute on chronic: Qualifiers: Acute renal failure type: unspecified Chronic kidney disease stage: unspecified stage Qualified Code(s): N17.9 - Acute kidney failure, unspecified; N18.9 - Chronic kidney disease, unspecified Code(s): N17.9 - Acute kidney failure, unspecified; N18.9 - Chronic kidney disease, unspecified Status: Acute Assessment and Plan: CKD3 by prior labs baseline creatinine about 1.6 09/25 creatinine 1.9 (may be new baseline) (7) COPD (chronic obstructive pulmonary disease): Qualifiers: COPD type: COPD with acute lower respiratory infection Qualified Code(s): J44.0 - Chronic obstructive pulmonary disease with (acute) lower respiratory infection Code(s): J44.9 - Chronic obstructive pulmonary disease, unspecified Status: Acute Assessment and Plan: continue bronchodilators continue bipap at night (8) Encephalopathy acute: Code(s): G93.40 - Encephalopathy, unspecified Status: Acute Assessment and Plan: 09/24 resolved (9) Lactic acidosis: Code(s): E87.2 - Acidosis Status: Acute Assessment and Plan: due to septic shock resolved (10) Elevated troponin: Code(s): R79.89 - Other specified abnormal findings of blood chemistry Status: Acute Assessment and Plan: due to ckd no ACS (11) Diabetic polyneuropathy: Code(s): E11.42 - Type 2 diabetes mellitus with diabetic polyneuropathy Status: Acute Assessment and Plan: continue sliding scale hold basal and trulicity due to improved control on hospital diet 09/25 FBS 101 Subjective Date/time seen: 09/25/19 11:28 Interval history: Admitted 09/23 with sob, hypotension, lactic acidosis, ABNL CXR (CHF vs PNA). Bipap overnight. Doing well off bipap today. 3L oxygen. No home oxygen. C/o pain in bilateral knees with movement. Would like XR. Hx OA. Denied pain of any other s
[2019-09-25] MEDS: FUROSEMIDE INJ 40 MG/4 ML VIAL IV PUSH (12:07)
[2019-09-25 13:02] LABS: Glucose Point of Care 169 (65-105)
[2019-09-25] MEDS: DULOXETINE 60 MG CAPSULE.DR PO (16:25)
[2019-09-25] MEDS: GABAPENTIN 300 MG CAPSULE PO (16:27)
[2019-09-25 16:44] LABS: Glucose Point of Care 165 (65-105)
--- NOTE | 2019-09-25 17:41 | PHAR ---
HOME MED VERIFIED = AZELASTINE OPHTH KETAN 0.05%. NO RX LABEL & NO PATIENT NAME ON BOTTLE. UNLABELED RX VIAL WITH EYE DROP BOTTLE WITH HAND WRITTEN NOTE ATTACHED OF PATIENT HOME EYE DROPS ROOM 307 .
--- NOTE | 2019-09-25 20:33 | PC.NURSE ---
Miralax and dulcolax doses not pulling for this nurse in pyxis and not in tube station. Pharmacy and night nurse both notified @[id number].
[2019-09-25] MEDS: BISACODYL 5 MG TABLET EC PO (20:59)
[2019-09-25] MEDS: polyethylene glycoL 3350 17 GM POWD.PACK PO (20:59)
[2019-09-25 21:32] LABS: Glucose Point of Care 174 (65-105)
[2019-09-26] VITALS (14 sets, daily range): BP systolic 104–132; BP diastolic 54–80; PULSE 100–120; RESP 18–26; TEMP 35.6–37.1; O2SAT 92–96
[2019-09-26] MEDS: ALBUTEROL SULFATE NEB 2.5 MG/0.5 ML INH 5 MG INHALATION ×4 (01:40→20:09)
[2019-09-26] MEDS: IPRATROPIUM BR 0.02% INH SOLN 0.5 MG/2.5 ML VIAL INHALATION ×4 (01:40→20:09)
[2019-09-26 06:05] LABS: Hematocrit 30.6 % (37.0-47.0); Mean Corpuscular HGB Conc 26.1 g/dl (32-36); Mean Corpuscular Hemoglobin 20.8 pg (26-34); Mean Corpuscular Volume 79.7 fl (80-100); Mean Platelet Volume 10.4 fl (7.4-10.4); Platelet Count Result 302 k/mm3 (150-375); Red Blood Count 3.84 M/mm3 (4.2-5.4); Red Cell Distribution Width 21.6 % (11.5-14.5); White Blood Count 11.9 K/mm3 (4.5-10.0)
[2019-09-26 06:26] LABS: Blood Urea Nitrogen 53 mg/dL (7-17); Carbon Dioxide 34 mmol/L (22-30); Chloride 92 mmol/L (98-107); Estimated CRCL calculation 53 ml/min; Estimated Glomerular Filt Rate 41; Glucose 135 mg/dL (65-105); Potassium 3.7 mmol/L (3.4-5.0); Sodium 133 mmol/L (137-145)
[2019-09-26 06:33] LABS: Alanine Aminotransferase 430 U/L (4-35); Albumin Level 2.7 g/dL (3.5-5.1); Alkaline Phosphatase 169 U/L (38-126); Aspartate Amino Transferase 269 U/L (14-36); Bilirubin,Total 1.2 mg/dL (0.2-1.3)
[2019-09-26 07:37] LABS: Glucose Point of Care 138 (65-105)
[2019-09-26] MEDS: DULOXETINE 60 MG CAPSULE.DR PO ×2 (09:38→17:47)
[2019-09-26] MEDS: GABAPENTIN 300 MG CAPSULE PO ×3 (09:38→17:48)
[2019-09-26] MEDS: POTASSIUM CHLORIDE 10 MEQ TABLET.ER PO (09:38)
[2019-09-26] MEDS: PANTOPRAZOLE 40 MG TABLET PO (09:39)
[2019-09-26] MEDS: ATORVASTATIN 40 MG TABLET 80 MG PO (09:39)
[2019-09-26] MEDS: FUROSEMIDE INJ 40 MG/4 ML VIAL IV PUSH (10:50)
[2019-09-26 11:38] LABS: Glucose Point of Care 158 (65-105)
--- NOTE | 2019-09-26 14:54 | PC.NURSE ---
On 09/26/19, the student, [Eden Bean ], provided care and completed [place] documentation on this patient. I have reviewed the student's documentation and agree with the findings.
[2019-09-26 17:23] LABS: Glucose Point of Care 170 (65-105)
--- NOTE | 2019-09-26 17:45 | P.PNIM_ITS ---
Progress Note: A&P Assessment and Plan (1) Severe sepsis: Code(s): A41.9 - Sepsis, unspecified organism; R65.20 - Severe sepsis without septic shock Status: Acute Assessment and Plan: * pulmonary vs urinary source of infection * Urine growing proteus sensitive to Zosyn * continue zosyn day 4 * Blood culture no growth * 09/25 trasfer from IMU to medical floor and try PT/OT (although baseline functional status is poor) (2) Acute hypercapnic respiratory failure: Code(s): J96.02 - Acute respiratory failure with hypercapnia Status: Acute Assessment and Plan: * Likely due to sepsis with shock * Suspect chronic hypoventilation as well * Bipap at 16/8, FIO2 35%, rate 20 at night * O2 3 LPM daytime taper as possible * Home oxygen evaluation prior to discharge (3) CHF (congestive heart failure): Qualifiers: Heart failure chronicity: unspecified Heart failure type: unspecified Qualified Code(s): I50.9 - Heart failure, unspecified Code(s): I50.9 - Heart failure, unspecified Status: Acute Assessment and Plan: * echo with right ventricular dysfunction, pulmonary hypertension * furosemide 40mg iv daily * 09/25 NM VQ lung scan * BUN and creatinine are falling with diuresis (4) Iron deficiency anemia: Qualifiers: Iron deficiency anemia type: unspecified iron deficiency Qualified Code(s): D50.9 - Iron deficiency anemia, unspecified Code(s): D50.9 - Iron deficiency anemia, unspecified Status: Acute Assessment and Plan: * baseline hemoglobin near 12 in 2015 * iron studies c/w deficiency * hgb 6.7 09/24 and required 1 U PRBC * check stool for occult blood * may need gi evaluation when stable * transfuse to maintain hemoglobin above 7 * gave IV iron 09/24 and will repeat a.m. 09/27 (5) Transaminitis: Code(s): R74.0 - Nonspecific elevation of levels of transaminase and lactic acid dehydrogenase [LDH] Status: Acute Assessment and Plan: * likely due to hypoperfusion and continue to fall * hepatitis serologies negative * ruq u/s 09/24 negative (6) Renal failure (ARF), acute on chronic: Qualifiers: Acute renal failure type: unspecified Chronic kidney disease stage: unspecified stage Qualified Code(s): N17.9 - Acute kidney failure, unspecified; N18.9 - Chronic kidney disease, unspecified Code(s): N17.9 - Acute kidney failure, unspecified; N18.9 - Chronic kidney disease, unspecified Status: Acute Assessment and Plan: * CKD3 by prior labs * baseline creatinine about 1.6 * 09/25 creatinine 1.9 * 09/26 creatinine 1.3 (7) COPD (chronic obstructive pulmonary disease): Qualifiers: COPD type: COPD with acute lower respiratory infection Qualified Code(s): J44.0 - Chronic obstructive pulmonary disease with (acute) lower respiratory infection Code(s): J44.9 - Chronic obstructive pulmonary disease, unspecified Status: Acute Assessment and Plan: * continue bronchodilators * continue bipap at night (8) Encephalopathy acute: Code(s): G93.40 - Encephalopathy, unspecified Status: Acute Assessment and Plan: * 09/24 resolved (9) Lactic acidosis: Code(s): E87.2 - Acidosis Status: Acute Assessment and Plan: * due to septic shock * resolved (10) Elevated troponin: Code(s): R79.89 - Other specified abnormal findings of blood chemistry Status: Acute Assessment and Plan: * due to ckd * no ACS (11) Diabeti
--- NOTE | 2019-09-26 17:45 | PM.IMPN ---
Progress Note: A&P Assessment and Plan (1) Severe sepsis: Code(s): A41.9 - Sepsis, unspecified organism; R65.20 - Severe sepsis without septic shock Status: Acute Assessment and Plan: pulmonary vs urinary source of infection Urine growing proteus sensitive to Zosyn continue zosyn day 4 Blood culture no growth 09/25 trasfer from IMU to medical floor and try PT/OT (although baseline functional status is poor) (2) Acute hypercapnic respiratory failure: Code(s): J96.02 - Acute respiratory failure with hypercapnia Status: Acute Assessment and Plan: Likely due to sepsis with shock Suspect chronic hypoventilation as well Bipap at 16/8, FIO2 35%, rate 20 at night O2 3 LPM daytime taper as possible Home oxygen evaluation prior to discharge (3) CHF (congestive heart failure): Qualifiers: Heart failure chronicity: unspecified Heart failure type: unspecified Qualified Code(s): I50.9 - Heart failure, unspecified Code(s): I50.9 - Heart failure, unspecified Status: Acute Assessment and Plan: echo with right ventricular dysfunction, pulmonary hypertension furosemide 40mg iv daily 09/25 NM VQ lung scan BUN and creatinine are falling with diuresis (4) Iron deficiency anemia: Qualifiers: Iron deficiency anemia type: unspecified iron deficiency Qualified Code(s): D50.9 - Iron deficiency anemia, unspecified Code(s): D50.9 - Iron deficiency anemia, unspecified Status: Acute Assessment and Plan: baseline hemoglobin near 12 in 2016 iron studies c/w deficiency hgb 6.7 09/24 and required 1 U PRBC check stool for occult blood may need gi evaluation when stable transfuse to maintain hemoglobin above 7 gave IV iron 09/24 and will repeat a.m. 09/27 (5) Transaminitis: Code(s): R74.0 - Nonspecific elevation of levels of transaminase and lactic acid dehydrogenase [LDH] Status: Acute Assessment and Plan: likely due to hypoperfusion and continue to fall hepatitis serologies negative ruq u/s 09/24 negative (6) Renal failure (ARF), acute on chronic: Qualifiers: Acute renal failure type: unspecified Chronic kidney disease stage: unspecified stage Qualified Code(s): N17.9 - Acute kidney failure, unspecified; N18.9 - Chronic kidney disease, unspecified Code(s): N17.9 - Acute kidney failure, unspecified; N18.9 - Chronic kidney disease, unspecified Status: Acute Assessment and Plan: CKD3 by prior labs baseline creatinine about 1.6 09/25 creatinine 1.9 09/26 creatinine 1.3 (7) COPD (chronic obstructive pulmonary disease): Qualifiers: COPD type: COPD with acute lower respiratory infection Qualified Code(s): J44.0 - Chronic obstructive pulmonary disease with (acute) lower respiratory infection Code(s): J44.9 - Chronic obstructive pulmonary disease, unspecified Status: Acute Assessment and Plan: continue bronchodilators continue bipap at night (8) Encephalopathy acute: Code(s): G93.40 - Encephalopathy, unspecified Status: Acute Assessment and Plan: 09/24 resolved (9) Lactic acidosis: Code(s): E87.2 - Acidosis Status: Acute Assessment and Plan: due to septic shock resolved (10) Elevated troponin: Code(s): R79.89 - Other specified abnormal findings of blood chemistry Status: Acute Assessment and Plan: due to ckd no ACS (11) Diabetic polyneuropathy: Code(s): E11.42 - Type 2 diabetes mellitus with diabetic polyneuropathy Status: Acute Assessment and Plan: continue sliding scale hold basal and trulicity due to improved control on hospital diet 09/25 FBS 101 09/26 FBS 135 Subjective Date/time seen: 09/26/19 17:45 Interval history: Date of visit 09/26/2019. admitted 09/23 with sob, hypotension, lactic acidosis, ABNL CXR (CHF vs PNA). Bipap overnig
[2019-09-26 21:18] LABS: Glucose Point of Care 150 (65-105)
[2019-09-27] VITALS (10 sets, daily range): BP systolic 108–139; BP diastolic 61–69; PULSE 92–102; RESP 20–24; TEMP 36.4–37.1; O2SAT 87–98
[2019-09-27 06:31] LABS: Basophils Absolute Auto 0.1 K/mm3 (0.0-0.1); Basophils Percent Auto 0.6 % (0.2-1.2); Eosinophils Absolute Auto 0.4 K/mm3 (0-0.3); Eosinophils Percent Auto 4.1 % (0-4.4); Hematocrit 31.2 % (37.0-47.0); Hemoglobin 8.1 g/dL (12.0-15.0); Immature Granulocyte Absolute 0.35 K/mm3 (0.00-0.031); Immature Granulocyte Percent A 3.2 % (0-0.5); Lymphocytes Percent Auto 9.2 % (18.3-44.2); Mean Platelet Volume 9.8 fl (7.4-10.4); Monocytes Absolute Auto 1.1 K/mm3 (0.1-0.6); Monocytes Percent Auto 10.2 % (2.6-8.5); Neutrophils Absolute Auto 7.9 K/mm3 (1.3-6.7); Neutrophils Percent Auto 72.7 % (45.5-73.1); Nucleated Red Blood Cells Perc 0.2 % (0.0-0.2); Platelet Count Result 281 k/mm3 (150-375); Red Blood Count 3.85 M/mm3 (4.2-5.4); White Blood Count 10.8 K/mm3 (4.5-10.0)
[2019-09-27 06:43] LABS: Blood Urea Nitrogen 42 mg/dL (7-17); Calcium 8.1 mg/dL (8.4-10.2); Carbon Dioxide 37 mmol/L (22-30); Chloride 89 mmol/L (98-107); Estimated CRCL calculation 49 ml/min; Estimated Glomerular Filt Rate 38; Glucose 150 mg/dL (65-105); Potassium 3.7 mmol/L (3.4-5.0); Sodium 132 mmol/L (137-145)
[2019-09-27 07:09] LABS: Anisocytosis 1+ (NORMAL); Hypochromasia 2+ (NORMAL); Platelet Estimate Adequate (Adequate); Stomatocytes 1+ (NORMAL)
[2019-09-27 07:32] LABS: Glucose Point of Care 159 (65-105)
[2019-09-27] MEDS: IPRATROPIUM BR 0.02% INH SOLN 0.5 MG/2.5 ML VIAL INHALATION ×3 (08:29→22:34)
[2019-09-27] MEDS: ALBUTEROL SULFATE NEB 2.5 MG/0.5 ML INH 5 MG INHALATION ×3 (08:29→22:34)
[2019-09-27] MEDS: GABAPENTIN 300 MG CAPSULE PO ×3 (09:36→16:07)
[2019-09-27] MEDS: ATORVASTATIN 40 MG TABLET 80 MG PO (09:36)
[2019-09-27] MEDS: POTASSIUM CHLORIDE 10 MEQ TABLET.ER PO (09:36)
[2019-09-27] MEDS: DULOXETINE 60 MG CAPSULE.DR PO ×2 (09:36→16:07)
[2019-09-27] MEDS: PANTOPRAZOLE 40 MG TABLET PO (09:37)
[2019-09-27 11:10] LABS: Glucose Point of Care 222 (65-105)
[2019-09-27] MEDS: INSULIN ASPART (*BKC) 100 UNITS/ML SUB-Q (11:22)
--- NOTE | 2019-09-27 11:27 | P.CDI_ITS ---
CDI Query Clarification Request Two queries: 1) Sepsis; pulmonary vs urinary source of infection; Urine growing proteus sensitive to Zosyn; continue zosyn day 4 documented Please clarify infectious cause/source of sepsis. 2) CHF documented - Echo showing EF 55/60% and grade 1 diastolic dysfunction - Lasix 40mg IV daily ordered - CXR 09/25 IMPRESSION: Cardiomegaly, pulmonary vascular congestion. Please further specify type and acuity of CHF: * Systolic * Diastolic * Combined systolic and diastolic * Unable to determine * Acute * Chronic * Acute on chronic * Unable to determine
--- NOTE | 2019-09-27 11:30 | HOMEO2EVAL ---
Home Oxygen Evaluation RC: Home Oxygen (O2) Evaluation Start: 09/27/19 08:44 Freq: ONCE Status: Active Protocol: RPE Activity Type Activity Date Activity User E-Sign Co-Sign Detail Recorded Client Recorded Date Recorded By Document 09/27/19 11:00 [email or web address] [email or web address] 09/27/19 11:23 DJO Document 09/27/19 11:10 [email or web address] [email or web address] 09/27/19 11:23 DJO 09/27/19 09/27/19 11:00 11:10 Home O2 Evaluation Test Phase Resting Resting Oxygen Delivery Room Air Nasal Cannula Pulse Oximetry (90-100 %) 87 L 1 L Pulse Rate (60-100 beats/min) 98 96 Home Oxygen Evaluation Comments PT NON- AMBULATORY Treatment Charges O2 Evaluation
[2019-09-27] MEDS: GUAIFENESIN/DEXTROMETHORPHAN 10 ML UDC PO (11:42)
--- NOTE | 2019-09-27 13:56 | HOMEO2EVAL ---
Home Oxygen Evaluation RC: Home Oxygen (O2) Evaluation Start: 09/27/19 08:44 Freq: ONCE Status: Active Protocol: RPE Activity Type Activity Date Activity User E-Sign Co-Sign Detail Recorded Client Recorded Date Recorded By Document 09/27/19 11:00 [email or web address] [email or web address] 09/27/19 11:23 DJO Document 09/27/19 11:10 [email or web address] [email or web address] 09/27/19 11:23 DJO 09/27/19 09/27/19 11:00 11:10 Home O2 Evaluation Test Phase Resting Resting Oxygen Delivery Room Air Nasal Cannula Pulse Oximetry (90-100 %) 87 90 Pulse Rate (60-100 beats/min) 98 96 Home Oxygen Evaluation Comments PT NON- AMBULATORY Treatment Charges O2 Evaluation
--- NOTE | 2019-09-27 14:03 | HOMEO2EVAL ---
Home Oxygen Evaluation RC: Home Oxygen (O2) Evaluation Start: 09/27/19 08:44 Freq: ONCE Status: Active Protocol: RPE Activity Type Activity Date Activity User E-Sign Co-Sign Detail Recorded Client Recorded Date Recorded By Document 09/27/19 11:00 [email or web address] [email or web address] 09/27/19 11:23 DJO Document 09/27/19 11:10 [email or web address] [email or web address] 09/27/19 11:23 DJO 09/27/19 09/27/19 11:00 11:10 Home O2 Evaluation Test Phase Resting Resting Oxygen Delivery Room Air Nasal Cannula Oxygen Flow Rate (L/min) 1 Pulse Oximetry (90-100 %) 87 L 90 Pulse Rate (60-100 beats/min) 98 96 Home Oxygen Evaluation Comments PT NON- AMBULATORY Treatment Charges O2 Evaluation
--- NOTE | 2019-09-27 14:23 | P.PNIM_ITS ---
Progress Note: A&P Assessment and Plan (1) Severe sepsis: Code(s): A41.9 - Sepsis, unspecified organism; R65.20 - Severe sepsis without septic shock Status: Acute Assessment and Plan: * pulmonary vs urinary source of infection * Urine growing proteus sensitive to Zosyn * continue zosyn day 5 * Blood culture no growth * 09/25 trasfer from IMU to medical floor (although baseline functional status is poor) (2) Acute hypercapnic respiratory failure: Code(s): J96.02 - Acute respiratory failure with hypercapnia Status: Acute Assessment and Plan: * Likely due to sepsis with shock * Suspect chronic hypoventilation as well * Bipap at 16/8, FIO2 35%, rate 20 at night * O2 3 LPM daytime ,taper as possible * Home oxygen evaluation prior to discharge (3) CHF (congestive heart failure): Qualifiers: Heart failure chronicity: unspecified Heart failure type: unspecified Qualified Code(s): I50.9 - Heart failure, unspecified Code(s): I50.9 - Heart failure, unspecified Status: Acute Assessment and Plan: probable acute on chronic diastolic heart failure * echo with right ventricular dysfunction, pulmonary hypertension, normal EF with grade 1 diastolic dysfunction * furosemide 40mg iv daily * 09/25 NM VQ lung scan , negative venous dopplers * BUN and creatinine are still falling with diuresis (4) Iron deficiency anemia: Qualifiers: Iron deficiency anemia type: unspecified iron deficiency Qualified Code(s): D50.9 - Iron deficiency anemia, unspecified Code(s): D50.9 - Iron deficiency anemia, unspecified Status: Acute Assessment and Plan: * baseline hemoglobin near 12 in 2015 * iron studies c/w deficiency * hgb 6.7 09/24 and required 1 U PRBC * stool for occult blood still not reported * may need gi evaluation when stable * transfuse to maintain hemoglobin above 7 * gave IV iron 09/24 and will repeat this a.m. 09/27 and 09/28 before potential d/c (5) Transaminitis: Code(s): R74.0 - Nonspecific elevation of levels of transaminase and lactic acid dehydrogenase [LDH] Status: Acute Assessment and Plan: * likely due to hypoperfusion and continue to fall * hepatitis serologies negative * ruq u/s 09/24 negative * LFTS continue to fall (6) Renal failure (ARF), acute on chronic: Qualifiers: Acute renal failure type: unspecified Chronic kidney disease stage: unspecified stage Qualified Code(s): N17.9 - Acute kidney failure, unspecified; N18.9 - Chronic kidney disease, unspecified Code(s): N17.9 - Acute kidney failure, unspecified; N18.9 - Chronic kidney disease, unspecified Status: Acute Assessment and Plan: * CKD3 by prior labs * baseline creatinine about 1.6 * 09/25 creatinine 1.9 * 09/26 creatinine 1.3 * 09/27 creatinine 1.4 (7) COPD (chronic obstructive pulmonary disease): Qualifiers: COPD type: COPD with acute lower respiratory infection Qualified Code(s): J44.0 - Chronic obstructive pulmonary disease with (acute) lower respiratory infection Code(s): J44.9 - Chronic obstructive pulmonary disease, unspecified Status: Acute Assessment and Plan: * continue bronchodilators * continue bipap at night (8) Encephalopathy acute: Code(s): G93.40 - Encephalopathy, unspecified Status: Acute Assessment and Plan: * 09/24 resolved (9) Lactic acidosis: Code(s): E87.2 - Acidosis Status: Acute Assessment and Plan: * due to septi
--- NOTE | 2019-09-27 14:23 | PM.IMPN ---
Progress Note: A&P Assessment and Plan (1) Severe sepsis: Code(s): A41.9 - Sepsis, unspecified organism; R65.20 - Severe sepsis without septic shock Status: Acute Assessment and Plan: pulmonary vs urinary source of infection Urine growing proteus sensitive to Zosyn continue zosyn day 5 Blood culture no growth 09/25 trasfer from IMU to medical floor (although baseline functional status is poor) (2) Acute hypercapnic respiratory failure: Code(s): J96.02 - Acute respiratory failure with hypercapnia Status: Acute Assessment and Plan: Likely due to sepsis with shock Suspect chronic hypoventilation as well Bipap at 16/8, FIO2 35%, rate 20 at night O2 3 LPM daytime ,taper as possible Home oxygen evaluation prior to discharge (3) CHF (congestive heart failure): Qualifiers: Heart failure chronicity: unspecified Heart failure type: unspecified Qualified Code(s): I50.9 - Heart failure, unspecified Code(s): I50.9 - Heart failure, unspecified Status: Acute Assessment and Plan: probable acute on chronic diastolic heart failure echo with right ventricular dysfunction, pulmonary hypertension, normal EF with grade 1 diastolic dysfunction furosemide 40mg iv daily 09/25 NM VQ lung scan , negative venous dopplers BUN and creatinine are still falling with diuresis (4) Iron deficiency anemia: Qualifiers: Iron deficiency anemia type: unspecified iron deficiency Qualified Code(s): D50.9 - Iron deficiency anemia, unspecified Code(s): D50.9 - Iron deficiency anemia, unspecified Status: Acute Assessment and Plan: baseline hemoglobin near 12 in 2016 iron studies c/w deficiency hgb 6.7 09/24 and required 1 U PRBC stool for occult blood still not reported may need gi evaluation when stable transfuse to maintain hemoglobin above 7 gave IV iron 09/24 and will repeat this a.m. 09/27 and 09/28 before potential d/c (5) Transaminitis: Code(s): R74.0 - Nonspecific elevation of levels of transaminase and lactic acid dehydrogenase [LDH] Status: Acute Assessment and Plan: likely due to hypoperfusion and continue to fall hepatitis serologies negative ruq u/s 09/24 negative LFTS continue to fall (6) Renal failure (ARF), acute on chronic: Qualifiers: Acute renal failure type: unspecified Chronic kidney disease stage: unspecified stage Qualified Code(s): N17.9 - Acute kidney failure, unspecified; N18.9 - Chronic kidney disease, unspecified Code(s): N17.9 - Acute kidney failure, unspecified; N18.9 - Chronic kidney disease, unspecified Status: Acute Assessment and Plan: CKD3 by prior labs baseline creatinine about 1.6 09/25 creatinine 1.9 09/26 creatinine 1.3 09/27 creatinine 1.4 (7) COPD (chronic obstructive pulmonary disease): Qualifiers: COPD type: COPD with acute lower respiratory infection Qualified Code(s): J44.0 - Chronic obstructive pulmonary disease with (acute) lower respiratory infection Code(s): J44.9 - Chronic obstructive pulmonary disease, unspecified Status: Acute Assessment and Plan: continue bronchodilators continue bipap at night (8) Encephalopathy acute: Code(s): G93.40 - Encephalopathy, unspecified Status: Acute Assessment and Plan: 09/24 resolved (9) Lactic acidosis: Code(s): E87.2 - Acidosis Status: Acute Assessment and Plan: due to septic shock resolved (10) Elevated troponin: Code(s): R79.89 - Other specified abnormal findings of blood chemistry Status: Acute Assessment and Plan: due to ckd no ACS (11) Diabetic polyneuropathy: Code(s): E11.42 - Type 2 diabetes mellitus with diabetic polyneuropathy Status: Acute Assessment and Plan: continue sliding scale hold basal and trulicity due to improved control on hospital d
--- NOTE | 2019-09-27 14:33 | PC.NURSE ---
On 09/27/19, the student, YENNY[ ], provided care and completed [facility] documentation on this patient. I have reviewed the student's documentation and agree with the findings.
--- NOTE | 2019-09-27 14:36 | PC.NURSE ---
On 09/27/19, the student, [Blanca Thao ], provided care and completed [facility] documentation on this patient. I have reviewed the student's documentation and agree with the findings.
--- NOTE | 2019-09-27 14:36 | PCRCNOTE ---
HOME O2 EVAL COMPLETE, PT. REQUIRES 1L. PT. IS NON-AMBULATORY. O2 SET UP WITH [employer] [facility] PHONE# [phone]. TANK HAS BEEN DELIVERED TO PT'S ROOM.
--- NOTE | 2019-09-27 14:49 | WPDGICN ---
Assessment and Plan Assessment and plan (1) Iron deficiency anemia: Qualifiers: Iron deficiency anemia type: unspecified iron deficiency Qualified Code(s): D50.9 - Iron deficiency anemia, unspecified Code(s): D50.9 - Iron deficiency anemia, unspecified Status: Acute Assessment and Plan: she is overall doing much better, normal BP, respiratory status improved. We can proceed tomorrow with egd (also dysphagia) and colonoscopy to assess if GI blood loss. (2) Dysphagia: Qualifiers: Dysphagia type: unspecified Qualified Code(s): R13.10 - Dysphagia, unspecified Code(s): R13.10 - Dysphagia, unspecified Status: Acute Assessment and Plan: egd (3) Encephalopathy acute: Code(s): G93.40 - Encephalopathy, unspecified Status: Acute Assessment and Plan: resolved (4) Acute hypercapnic respiratory failure: Code(s): J96.02 - Acute respiratory failure with hypercapnia Status: Acute Assessment and Plan: resolved, requiring less oxygen (5) Transaminitis: Code(s): R74.0 - Nonspecific elevation of levels of transaminase and lactic acid dehydrogenase [LDH] Status: Acute (6) Severe sepsis: Code(s): A41.9 - Sepsis, unspecified organism; R65.20 - Severe sepsis without septic shock Status: Acute Assessment and Plan: probably from sepsis and trending down, we can repeat as outpatient, she may have also diminish liver reserve with fatty liver. Hepatitis panel negative. (7) Type 2 diabetes mellitus treated with insulin: Code(s): E11.9 - Type 2 diabetes mellitus without complications; Z79.4 - FPC (current) use of insulin Status: Acute Assessment and Plan: on medical treatment. (8) COPD (chronic obstructive pulmonary disease): Qualifiers: COPD type: COPD with acute lower respiratory infection Qualified Code(s): J44.0 - Chronic obstructive pulmonary disease with (acute) lower respiratory infection Code(s): J44.9 - Chronic obstructive pulmonary disease, unspecified Status: Acute (9) Morbid obesity with BMI of 60.0-69.9, adult: Code(s): E66.01 - Morbid (severe) obesity due to excess calories; Z68.44 - Body mass index (BMI) 60.0-69.9, adult Status: Acute GI Consult Note Consult date/time: 09/27/19 14:49 reason for consult: JANE HPI: Delilah Ludwig is a 69 year old female with morbid obesity, diabetes mellitus, and CHF who admitted after she came with increased shortness of breath, upper respiratory symptoms and confusion, also had leukocytosis, elevated lactic acid with transminases 1000's- now trending down after medical therapy and diagnosed with sepsis. She has been on iv zosyn for almost 5 days and overall much better. Also required bipap, now normal mentation. We are called because hb 6.7, after 1 unit of blood 8. Baseline hb 2016 was 12. She denies overt GIB, last colonoscopy about 10 years ago. She also has dysphagia for several months, had barium esophagram as outpatient that showed small HH, no major findings. No recent EGD. Review of Systems Constitutional: Constitutional: Reports fatigue Eyes: Eyes: Denies blurry vision ENT: Reports Normal hearing present, Denies headache(s) and Denies neck pain Cardiovascular: Cardiovascular: Denies chest pain and Denies dyspnea Respiratory: Respiratory: Reports dyspnea on exertion Gastrointestinal: Gastrointestinal: Denies hematochezia Genitourinary: Genitourinary: Denies dysuria Musculoskeletal: Musculoskeletal: Denies neck pain Integumentary/Breasts: Skin/Breast: Denies dry skin Neurologic: Reports Normal hearing present, Denies headache(s) and Denies weakness Psychiatric: Psychiatric: Denies anxiety Endocrine: Endocrine: Denies change in body appearance Hematologic/Lymphatic: Hematologic/Lymphatic: Denies easy bleeding Allergic/Immunologic: Allergic/Immunologic: Denies urticaria PMFSH Past
[2019-09-27] MEDS: FUROSEMIDE INJ 40 MG/4 ML VIAL IV PUSH (14:57)
--- NOTE | 2019-09-27 14:57 | PC.NURSE ---
On 09/27/19, the student, [ Carmen Sanz], provided care and completed [facility] documentation on this patient. I have reviewed the student's documentation and agree with the findings.
[2019-09-27] MEDS: PEG (High)/E-LYTE SOLN 4,000 ML BTL 4000 ML PO (16:07)
[2019-09-27] MEDS: BISACODYL 5 MG TABLET EC 20 MG PO (16:13)
[2019-09-27 16:33] LABS: Glucose Point of Care 144 (65-105)
[2019-09-27 21:30] LABS: Alveolar/Arterial O2 Gradient 44.2 mmHg; Base Excess ABG 11.1 mEq/l (+/-2.0); Carboxyhemoglobin 0.5 % THb (0-2.0); Fractional Inspired Oxygen 28 %; HCO3 ABG 37.8 mEq/l (22.0-26.0); Methemoglobin ABG 0.4 %THb (0-1.5); Oxygen Content ABG 12.7 %vol (16.0-22.0); Oxygen Saturation ABG 95.4 % (95.0-100.0); Oxyhemoglobin 94.3 % THb (90.0-100.0); PO2 ABG 80.4 mmHg (80.0-100.0); PO2 FiO2 Ratio Arterial Blood 2.87 %; Reduced Hemoglobin 4.8 %THb (0-5.0); Total Hemoglobin 9.5 g/dL (12.0-18.0); pH ABG 7.392 (7.350-7.450)
[2019-09-27 21:32] LABS: Device NASAL CANNULA; PCO2 ABG 63.6 mmHg (35.0-45.0); Site Drawn LEFT BRACHIAL
[2019-09-27 21:46] LABS: Glucose Point of Care 160 (65-105)
[2019-09-27 22:22] LABS: IFOB Positive Control Positive; Immunochemical Fecal Occult Bl Negative (N)
[2019-09-28] VITALS (22 sets, daily range): BP systolic 101–119; BP diastolic 42–63; PULSE 82–109; RESP 16–30; TEMP 36.2–36.8; O2SAT 80–100
[2019-09-28] MEDS: ALBUTEROL SULFATE NEB 2.5 MG/0.5 ML INH 5 MG INHALATION ×4 (03:04→20:54)
[2019-09-28] MEDS: IPRATROPIUM BR 0.02% INH SOLN 0.5 MG/2.5 ML VIAL INHALATION ×4 (03:04→20:54)
[2019-09-28] MEDS: MAGNESIUM CITRATE 300 ML BTL PO (04:55)
[2019-09-28 06:16] LABS: Basophils Absolute Auto 0.1 K/mm3 (0.0-0.1); Basophils Percent Auto 0.6 % (0.2-1.2); Eosinophils Absolute Auto 0.5 K/mm3 (0-0.3); Eosinophils Percent Auto 3.5 % (0-4.4); Hematocrit 36.3 % (37.0-47.0); Hemoglobin 9.4 g/dL (12.0-15.0); Immature Granulocyte Absolute 0.42 K/mm3 (0.00-0.031); Immature Granulocyte Percent A 3.1 % (0-0.5); Lymphocytes Absolute Auto 0.82 K/mm3 (0.9-3.2); Mean Corpuscular HGB Conc 25.9 g/dl (32-36); Mean Corpuscular Hemoglobin 21.3 pg (26-34); Mean Corpuscular Volume 82.3 fl (80-100); Mean Platelet Volume 9.9 fl (7.4-10.4); Monocytes Absolute Auto 1.1 K/mm3 (0.1-0.6); Neutrophils Absolute Auto 10.7 K/mm3 (1.3-6.7); Neutrophils Percent Auto 78.8 % (45.5-73.1); Platelet Count Result 211 k/mm3 (150-375); Red Blood Count 4.41 M/mm3 (4.2-5.4); Red Cell Distribution Width 22.8 % (11.5-14.5); White Blood Count 13.6 K/mm3 (4.5-10.0)
[2019-09-28 06:59] LABS: Anisocytosis 1+ (NORMAL); Hypochromasia 2+ (NORMAL); Platelet Estimate Adequate (Adequate)
[2019-09-28 07:09] LABS: Alanine Aminotransferase 258 U/L (4-35); Albumin Level 2.9 g/dL (3.5-5.1); Alkaline Phosphatase 157 U/L (38-126); Aspartate Amino Transferase 78 U/L (14-36); Bilirubin,Total 1.2 mg/dL (0.2-1.3); Blood Urea Nitrogen 34 mg/dL (7-17); Calcium 8.3 mg/dL (8.4-10.2); Carbon Dioxide 39 mmol/L (22-30); Chloride 86 mmol/L (98-107); Estimated CRCL calculation 53 ml/min; Estimated Glomerular Filt Rate 41; Glucose 128 mg/dL (65-105); Potassium 3.5 mmol/L (3.4-5.0); Sodium 132 mmol/L (137-145)
[2019-09-28] MEDS: FUROSEMIDE INJ 40 MG/4 ML VIAL IV PUSH (09:27)
[2019-09-28 10:12] LABS: Glucose Point of Care 119 (65-105)
--- NOTE | 2019-09-28 10:19 | HOMEO2EVAL ---
Home Oxygen Evaluation RC: Home Oxygen (O2) Evaluation Start: 09/27/19 08:44 Freq: ONCE Status: Active Protocol: RPE Activity Type Activity Date Activity User E-Sign Co-Sign Detail Recorded Client Recorded Date Recorded By Document 09/28/19 10:00 JENNIFER [email or web address] 09/28/19 10:18 JENNIFER Document 09/28/19 10:03 JENNIFER [email or web address] 09/28/19 10:18 JENNIFER Document 09/28/19 10:06 JENNIFER [email or web address] 09/28/19 10:18 JENNIFER 09/28/19 09/28/19 09/28/19 10:00 10:03 10:06 Home O2 Evaluation Test Phase Resting Resting Resting Oxygen Delivery Room Air Nasal Cannula Nasal Cannula Oxygen Flow Rate (L/min) 1 2 Pulse Oximetry (90-100 %) 85 L 87 L 93 Home Oxygen Evaluation Comments PT NON- PT REQUIRES 2L AMBULATORY Treatment Charges O2 Evaluation
--- NOTE | 2019-09-28 11:14 | PCRCNOTE ---
HOME O2 NEEDS HAVE INCREASED TO 2L, HOME O2 EVAL HAS BEEN REDONE, HOME O2 ORDER HAS BEEN EDITED, AND HOME O2 COMPANY HAS BEEN NOTIFIED.
[2019-09-28 12:18] LABS: Glucose Point of Care 111 (65-105)
--- NOTE | 2019-09-28 13:17 | PC.NURSE ---
Pt to GI lab per galen.
[2019-09-28 13:47] LABS: Glucose Point of Care 99 (65-105)
--- NOTE | 2019-09-28 14:03 | WPDANESEPPF ---
Anes - Initial Pre Proc Eval Procedure: Operation Date: 09/28/19 12:00 Proposed Procedures p Esophagogastroduodenoscopy & Colonoscopy - Nir Lynch MD Date/Time: 09/28/19 14:03 Surgeon: Dmitri Bolden MD Pre Op Diagnosis: Acute Respiratory Failure/ CHF Patient Data Age: 69 Gender: F Height: 5 ft Weight: 156.5 kg Last Vital Signs Temp 97.2 F L 09/28/19 13:33 Pulse 95 09/28/19 13:33 Resp 20 09/28/19 13:33 BP 107/56 L 09/28/19 13:33 Pulse Ox 98 09/28/19 13:33 Allergies Allergy/AdvReac Type Severity Reaction Status Date / Time NSAIDS (Non-Steroidal Allergy Unknown unknown Verified 09/01/19 14:57 Anti-Inflamma Home Medications Medication Instructions Recorded Confirmed Type lisinopril 20 mg tablet 20 mg PO DAILY #90 tablet 07/17/19 09/24/19 Rx ropinirole 2 mg tablet 2 mg PO BID #180 tablet 07/21/19 09/24/19 Rx esomeprazole magnesium 20 mg 20 mg PO DAILY #90 cap 07/31/19 09/24/19 Rx capsule,delayed release gabapentin 300 mg capsule 300 mg PO TID #270 cap 08/09/19 09/24/19 Rx alprazolam 0.25 mg tablet 0.25 mg PO DAILY PRN #40 tablet 08/11/19 09/24/19 Rx potassium chloride 10 mEq 10 meq PO DAILY #90 tablet 08/22/19 09/24/19 Rx tablet,extended release dulaglutide 0.75 mg/0.5 mL 0.75 mg SUB-Q WEEKLY #2 ml 08/24/19 09/24/19 Rx subcutaneous pen injector duloxetine 60 mg capsule,delayed 60 mg PO BID #40 cap 08/25/19 09/24/19 Rx release albuterol sulfate 90 mcg/actuation 2 inhalation INHALATION BID gm 09/01/19 09/24/19 History aerosol inhaler atorvastatin 80 mg tablet 80 mg PO DAILY 09/01/19 09/24/19 History cyclobenzaprine 10 mg tablet 10 mg PO TID PRN 09/01/19 09/24/19 History furosemide 40 mg tablet 40 mg PO QAM tablet 09/01/19 09/24/19 History insulin detemir U-100 100 unit/mL 24 unit SUB-Q DAILY 09/01/19 09/24/19 History subcutaneous solution oxybutynin chloride 5 mg tablet 5 mg PO DAILY 09/01/19 09/24/19 History azelastine 0.05 % eye drops 1 drop EACH EYE BID #6 ml 09/21/19 09/24/19 Rx Laboratory Tests 09/27/19 09/27/19 09/27/19 16:03 20:48 21:27 WBC RBC Hgb Hct MCV MCH MCHC RDW Plt Count MPV Immature Gran % (Auto) Neut % (Auto) Lymph % (Auto) [place] % (Auto) Eos % (Auto) Baso % (Auto) Lymph # (Auto) [place] # (Auto) Eos # (Auto) Baso # (Auto) Abs Immat Gran (auto) Absolute Neuts (auto) Absolute Nucleated RBC Nucleated RBC % Platelet Estimate Hypochromasia Anisocytosis Puncture Site Left brachial ABG pH 7.392 (7.350-7.450) ABG pCO2 63.6 mmHg H* mmHg (35.0-45.0) ABG pO2 80.4 mmHg mmHg (80.0-100.0) ABG PO2/FiO2 Ratio 2.87 % % ABG HCO3 37.8 mEq/l H mEq/l (22.0-26.0) ABG O2 Saturation 95.4 % % (95.0-100.0) ABG O2 Content 12.7 %vol L %vol (16.0-22.0) ABG Base Excess 11.1 mEq/l mEq/l (+/-2.0) A-a Gradient 44.2 mmHg mmHg Oxyhemoglobin 94.3 % THb % THb (90.0-100.0) Carboxyhemoglobin 0.5 % THb % THb (0-2.0) Methemoglobin 0.4 %THb %THb (0-1.5) Reduced Hemoglobin 4.8 %THb %THb (0-5.0) Total Hemoglobin 9.5 g/dL L g/dL (12.0-18.0) O2 Delivery Device Nasal cannula O2 Liters/Min 2.0 LPM LPM FiO2 28 % % Sodium Potassium Chloride Carbon Dioxide BUN Creatinine Estim Creat Clear Calc Estimated GFR Glucose POC Capillary Glucose 144 mg/dl H mg/dl 160 mg/dl H mg/dl (65-105) (65-105) Calcium Tot
[2019-09-28] MEDS: BENZOCAINE (*SP) 60 ML SPRAY CAN (HURRICAINE) 1 SPRAY MUCOUS MEM (14:20)
[2019-09-28] MEDS: LACTATED RINGERS 1,000 ML 150 ML IV CONT (14:20)
--- NOTE | 2019-09-28 15:20 | PC.NURSE ---
Pt returned from GI lab.
--- NOTE | 2019-09-28 16:07 | P.PNIM_ITS ---
Progress Note: A&P Assessment and Plan (1) Severe sepsis: Code(s): A41.9 - Sepsis, unspecified organism; R65.20 - Severe sepsis without septic shock Status: Acute Assessment and Plan: * pulmonary vs urinary source of infection * Urine growing proteus sensitive to Zosyn * continue zosyn day 6 * Blood culture no growth * 09/25 trasfer from IMU to medical floor (although baseline functional status is poor) (2) Acute hypercapnic respiratory failure: Code(s): J96.02 - Acute respiratory failure with hypercapnia Status: Acute Assessment and Plan: * Likely due to sepsis with shock * Suspect chronic hypoventilation as well * Bipap at 16/8, FIO2 35%, rate 20 at night * O2 2 LPM daytime ,taper as possible * Home oxygen evaluation looks to be 2LNC (3) CHF (congestive heart failure): Qualifiers: Heart failure chronicity: unspecified Heart failure type: unspecified Qualified Code(s): I50.9 - Heart failure, unspecified Code(s): I50.9 - Heart failure, unspecified Status: Acute Assessment and Plan: probable acute on chronic diastolic heart failure * echo with right ventricular dysfunction, pulmonary hypertension, normal EF with grade 1 diastolic dysfunction * furosemide 40mg iv daily * 09/25 NM VQ lung scan , negative venous dopplers * BUN and creatinine are still falling with diuresis and transition to po lasix 09/29 (4) Iron deficiency anemia: Qualifiers: Iron deficiency anemia type: unspecified iron deficiency Qualified Code(s): D50.9 - Iron deficiency anemia, unspecified Code(s): D50.9 - Iron deficiency anemia, unspecified Status: Acute Assessment and Plan: * baseline hemoglobin near 12 in 2015 * iron studies c/w deficiency * hgb 6.7 09/24 and required 1 U PRBC * stool for occult blood still not reported * may need gi evaluation when stable * transfuse to maintain hemoglobin above 7 * gave IV iron 09/24 and will repeat this a.m. 09/27 and 09/28 today for total of 900 mg * EGD and colon today 09/28 no obvious source of any blood loss. Esophagitis, diverticular disease and hemorrhoids (5) Transaminitis: Code(s): R74.0 - Nonspecific elevation of levels of transaminase and lactic acid dehydrogenase [LDH] Status: Acute Assessment and Plan: * likely due to hypoperfusion and continue to fall * hepatitis serologies negative * ruq u/s 09/24 negative * LFTS continue to fall and will recheck am 09/29 (6) Renal failure (ARF), acute on chronic: Qualifiers: Acute renal failure type: unspecified Chronic kidney disease stage: unspecified stage Qualified Code(s): N17.9 - Acute kidney failure, unspecified; N18.9 - Chronic kidney disease, unspecified Code(s): N17.9 - Acute kidney failure, unspecified; N18.9 - Chronic kidney disease, unspecified Status: Acute Assessment and Plan: * CKD3 by prior labs * baseline creatinine about 1.6 * 09/25 creatinine 1.9 * 09/26 creatinine 1.3 * 09/27 creatinine 1.4 * 09/28 creatinine 1.3 (7) COPD (chronic obstructive pulmonary disease): Qualifiers: COPD type: COPD with acute lower respiratory infection Qualified Code(s): J44.0 - Chronic obstructive pulmonary disease with (acute) lower respiratory infection Code(s): J44.9 - Chronic obstructive pulmonary disease, unspecified Status: Acute Assessment and Plan: * continue bronchodilators * continue bipap at night (8) Encephalopathy acute: Code(s): G93.40 - Encephalopathy, unspecified Status: Ac
--- NOTE | 2019-09-28 16:07 | PM.IMPN ---
Progress Note: A&P Assessment and Plan (1) Severe sepsis: Code(s): A41.9 - Sepsis, unspecified organism; R65.20 - Severe sepsis without septic shock Status: Acute Assessment and Plan: pulmonary vs urinary source of infection Urine growing proteus sensitive to Zosyn continue zosyn day 6 Blood culture no growth 09/25 trasfer from IMU to medical floor (although baseline functional status is poor) (2) Acute hypercapnic respiratory failure: Code(s): J96.02 - Acute respiratory failure with hypercapnia Status: Acute Assessment and Plan: Likely due to sepsis with shock Suspect chronic hypoventilation as well Bipap at 16/8, FIO2 35%, rate 20 at night O2 2 LPM daytime ,taper as possible Home oxygen evaluation looks to be 2LNC (3) CHF (congestive heart failure): Qualifiers: Heart failure chronicity: unspecified Heart failure type: unspecified Qualified Code(s): I50.9 - Heart failure, unspecified Code(s): I50.9 - Heart failure, unspecified Status: Acute Assessment and Plan: probable acute on chronic diastolic heart failure echo with right ventricular dysfunction, pulmonary hypertension, normal EF with grade 1 diastolic dysfunction furosemide 40mg iv daily 09/25 NM VQ lung scan , negative venous dopplers BUN and creatinine are still falling with diuresis and transition to po lasix 09/29 (4) Iron deficiency anemia: Qualifiers: Iron deficiency anemia type: unspecified iron deficiency Qualified Code(s): D50.9 - Iron deficiency anemia, unspecified Code(s): D50.9 - Iron deficiency anemia, unspecified Status: Acute Assessment and Plan: baseline hemoglobin near 12 in 2016 iron studies c/w deficiency hgb 6.7 09/24 and required 1 U PRBC stool for occult blood still not reported may need gi evaluation when stable transfuse to maintain hemoglobin above 7 gave IV iron 09/24 and will repeat this a.m. 09/27 and 09/28 today for total of 900 mg EGD and colon today 09/28 no obvious source of any blood loss. Esophagitis, diverticular disease and hemorrhoids (5) Transaminitis: Code(s): R74.0 - Nonspecific elevation of levels of transaminase and lactic acid dehydrogenase [LDH] Status: Acute Assessment and Plan: likely due to hypoperfusion and continue to fall hepatitis serologies negative ruq u/s 09/24 negative LFTS continue to fall and will recheck am 09/29 (6) Renal failure (ARF), acute on chronic: Qualifiers: Acute renal failure type: unspecified Chronic kidney disease stage: unspecified stage Qualified Code(s): N17.9 - Acute kidney failure, unspecified; N18.9 - Chronic kidney disease, unspecified Code(s): N17.9 - Acute kidney failure, unspecified; N18.9 - Chronic kidney disease, unspecified Status: Acute Assessment and Plan: CKD3 by prior labs baseline creatinine about 1.6 09/25 creatinine 1.9 09/26 creatinine 1.3 09/27 creatinine 1.4 09/28 creatinine 1.3 (7) COPD (chronic obstructive pulmonary disease): Qualifiers: COPD type: COPD with acute lower respiratory infection Qualified Code(s): J44.0 - Chronic obstructive pulmonary disease with (acute) lower respiratory infection Code(s): J44.9 - Chronic obstructive pulmonary disease, unspecified Status: Acute Assessment and Plan: continue bronchodilators continue bipap at night (8) Encephalopathy acute: Code(s): G93.40 - Encephalopathy, unspecified Status: Acute Assessment and Plan: 09/24 resolved (9) Lactic acidosis: Code(s): E87.2 - Acidosis Status: Acute Assessment and Plan: due to septic shock resolved (10) Elevated troponin: Code(s): R79.89 - Other specified abnormal findings of blood chemistry Status: Acute Assessment and Plan: due to ckd no ACS (11) Diabetic polyneuropathy: Code(s): E11.42 - Type 2 d
[2019-09-28 17:13] LABS: Glucose Point of Care 115 (65-105)
[2019-09-28] MEDS: ATORVASTATIN 40 MG TABLET 80 MG PO (17:16)
[2019-09-28] MEDS: PANTOPRAZOLE 40 MG TABLET PO (17:16)
[2019-09-28] MEDS: POTASSIUM CHLORIDE 10 MEQ TABLET.ER PO (17:16)
[2019-09-28] MEDS: DULOXETINE 60 MG CAPSULE.DR PO (17:16)
[2019-09-28] MEDS: GABAPENTIN 300 MG CAPSULE PO (17:16)
[2019-09-28 22:17] LABS: Glucose Point of Care 168 (65-105)
[2019-09-29 01:55] VITALS: PULSE 99; RESP 16
[2019-09-29] MEDS: ALBUTEROL SULFATE NEB 2.5 MG/0.5 ML INH 5 MG INHALATION ×2 (01:55→08:22)
[2019-09-29] MEDS: IPRATROPIUM BR 0.02% INH SOLN 0.5 MG/2.5 ML VIAL INHALATION ×2 (01:55→08:22)
[2019-09-29 02:06] VITALS: PULSE 102; RESP 16
[2019-09-29 06:00] VITALS: BP 123/59; PULSE 99; RESP 20; TEMP 36.7; O2SAT 97
[2019-09-29 06:09] LABS: Basophils Absolute Auto 0.1 K/mm3 (0.0-0.1); Basophils Percent Auto 0.7 % (0.2-1.2); Eosinophils Absolute Auto 0.5 K/mm3 (0-0.3); Eosinophils Percent Auto 3.2 % (0-4.4); Hematocrit 32.2 % (37.0-47.0); Hemoglobin 8.5 g/dL (12.0-15.0); Immature Granulocyte Absolute 0.44 K/mm3 (0.00-0.031); Immature Granulocyte Percent A 3.1 % (0-0.5); Lymphocytes Absolute Auto 1.01 K/mm3 (0.9-3.2); Mean Corpuscular HGB Conc 26.4 g/dl (32-36); Mean Corpuscular Hemoglobin 21.5 pg (26-34); Mean Corpuscular Volume 81.5 fl (80-100); Mean Platelet Volume 10.2 fl (7.4-10.4); Monocytes Absolute Auto 1.1 K/mm3 (0.1-0.6); Monocytes Percent Auto 7.4 % (2.6-8.5); Neutrophils Absolute Auto 11.3 K/mm3 (1.3-6.7); Neutrophils Percent Auto 78.6 % (45.5-73.1); Platelet Count Result 252 k/mm3 (150-375); Red Blood Count 3.95 M/mm3 (4.2-5.4); Red Cell Distribution Width 22.7 % (11.5-14.5); White Blood Count 14.3 K/mm3 (4.5-10.0)
[2019-09-29 06:40] LABS: Alanine Aminotransferase 162 U/L (4-35); Albumin Level 2.6 g/dL (3.5-5.1); Alkaline Phosphatase 134 U/L (38-126); Aspartate Amino Transferase 41 U/L (14-36); Bilirubin,Total 0.8 mg/dL (0.2-1.3); Blood Urea Nitrogen 26 mg/dL (7-17); Calcium 8.2 mg/dL (8.4-10.2); Carbon Dioxide > 40 mmol/L (22-30); Chloride 86 mmol/L (98-107); Estimated CRCL calculation 58 ml/min; Estimated Glomerular Filt Rate 45; Glucose 121 mg/dL (65-105); Potassium 3.4 mmol/L (3.4-5.0); Sodium 131 mmol/L (137-145)
[2019-09-29 07:38] LABS: Glucose Point of Care 134 (65-105)
[2019-09-29 08:24] VITALS: PULSE 105; RESP 20; O2SAT 92
[2019-09-29 08:30] VITALS: PULSE 106; RESP 18
[2019-09-29 08:37] LABS: Anisocytosis 1+ (NORMAL); Platelet Estimate Adequate (Adequate)
[2019-09-29 08:38] LABS: Hypochromasia 2+ (NORMAL); Stomatocytes 2+ (NORMAL)
[2019-09-29] MEDS: DULOXETINE 60 MG CAPSULE.DR PO (09:11)
[2019-09-29] MEDS: GABAPENTIN 300 MG CAPSULE PO ×2 (09:11→12:07)
[2019-09-29] MEDS: FUROSEMIDE 40 MG TABLET PO (09:12)
[2019-09-29] MEDS: PANTOPRAZOLE 40 MG TABLET PO (09:12)
[2019-09-29] MEDS: POTASSIUM CHLORIDE 10 MEQ TABLET.ER PO (09:12)
[2019-09-29] MEDS: ATORVASTATIN 40 MG TABLET 80 MG PO (09:12)
--- NOTE | 2019-09-29 09:53 | WPDANESPN ---
Anes - Prog Note Post-Op Date/Time: 09/29/19 09:53 Cardiovascular status: normal Respiratory status: normal Airway patency: baseline Mental status: baseline Post-Op hydration status: normal Vital Signs: Last Vital Signs Temp 36.7 C 09/29/19 06:00 Pulse 106 H 09/29/19 08:30 Resp 18 09/29/19 08:30 BP 123/59 L 09/29/19 06:00 Pulse Ox 92 09/29/19 08:24 I/O: Intake & Output 09/28/19 09/29/19 09/29/19 23:59 07:59 15:59 Intake Total 410 400 480 Balance 410 400 480 Laboratory Tests 09/29/19 05:27 09/29/19 05:27 09/28/19 09/28/19 09/28/19 09:26 12:03 13:45 WBC RBC Hgb Hct MCV MCH MCHC RDW Plt Count MPV Immature Gran % (Auto) Neut % (Auto) Lymph % (Auto) [place] % (Auto) Eos % (Auto) Baso % (Auto) Lymph # (Auto) [place] # (Auto) Eos # (Auto) Baso # (Auto) Abs Immat Gran (auto) Absolute Neuts (auto) Absolute Nucleated RBC Nucleated RBC % Platelet Estimate Hypochromasia Anisocytosis Stomatocytes Sodium Potassium Chloride Carbon Dioxide BUN Creatinine Estim Creat Clear Calc Estimated GFR Glucose POC Capillary Glucose 119 H 111 H 99 Calcium Total Bilirubin Direct Bilirubin AST ALT Alkaline Phosphatase Total Protein Albumin 09/28/19 09/28/19 09/29/19 16:58 22:14 05:27 WBC 14.3 H RBC 3.95 L Hgb 8.5 L Hct 32.2 L MCV 81.5 MCH 21.5 L MCHC 26.4 L RDW 22.7 H Plt Count 252 MPV 10.2 Immature Gran % (Auto) 3.1 H Neut % (Auto) 78.6 H Lymph % (Auto) 7.0 L [place] % (Auto) 7.4 Eos % (Auto) 3.2 Baso % (Auto) 0.7 Lymph # (Auto) 1.01 [place] # (Auto) 1.1 H Eos # (Auto) 0.5 H Baso # (Auto) 0.1 Abs Immat Gran (auto) 0.44 H Absolute Neuts (auto) 11.3 H Absolute Nucleated RBC 0.0 Nucleated RBC % 0.0 Platelet Estimate Adequate Hypochromasia 2+ Anisocytosis 1+ Stomatocytes 2+ Sodium Potassium Chloride Carbon Dioxide BUN Creatinine Estim Creat Clear Calc Estimated GFR Glucose POC Capillary Glucose 115 H 168 H Calcium Total Bilirubin Direct Bilirubin AST ALT Alkaline Phosphatase Total Protein Albumin 09/29/19 09/29/19 05:27 07:11 WBC RBC Hgb Hct MCV MCH MCHC RDW Plt Count MPV Immature Gran % (Auto) Neut % (Auto) Lymph % (Auto) [place] % (Auto) Eos % (Auto) Baso % (Auto) Lymph # (Auto) [place] # (Auto) Eos # (Auto) Baso # (Auto) Abs Immat Gran (auto) Absolute Neuts (auto) Absolute Nucleated RBC Nucleated RBC % Platelet Estimate Hypochromasia Anisocytosis Stomatocytes Sodium 131 L Potassium 3.4 Chloride 86 L Carbon Dioxide > 40 H BUN 26 H Creatinine 1.20 H Estim Creat Clear Calc 58 Estimated GFR 45 L Glucose 121 H POC Capillary Glucose 134 H Calcium 8.2 L Total Bilirubin 0.8 Direct Bilirubin 0.0 AST 41 H ALT 162 H Alkaline Phosphatase 134 H Total Protein 6.0 L Albumin 2.6 L Post-procedural complaints: none Patient Feedback: Patient satisfied with anesthetic care.
[2019-09-29] MEDS: POTASSIUM CHLORIDE 20 MEQ TABLET 40 MEQ PO (10:31)
[2019-09-29 12:09] LABS: Glucose Point of Care 158 (65-105)
--- NOTE | 2019-10-03 13:02 | P.DS_ITS ---
DS: Diagnosis Admitting Diagnosis Admitting Diagnosis: Shock, unspecified Discharge Diagnosis (1) Severe sepsis: Code(s): A41.9 - Sepsis, unspecified organism; R65.20 - Severe sepsis without septic shock Status: Acute Assessment and Plan: * pulmonary vs urinary source of infection * Urine grew proteus sensitive to Zosyn * received zosyn 7 day course * Blood culture no growth * 09/25 trasfer from IMU to medical floor (although baseline functional status is poor) * Up to chair with PT by discharge which is her baseline (2) Acute hypercapnic respiratory failure: Code(s): J96.02 - Acute respiratory failure with hypercapnia Status: Acute Assessment and Plan: * Likely due to sepsis with shock * Suspect chronic hypoventilation as well with increased hco3 on basic and RVH with pul HTN * Bipap at 16/8, FIO2 35%, rate 20 was used iinitially at night and patien recovered * O2 2 LPM daytime as determined by respiratory rx and will be used at home * suspect she has been hypoxic for some time (3) CHF (congestive heart failure): Qualifiers: Heart failure chronicity: unspecified Heart failure type: unspecified Qualified Code(s): I50.9 - Heart failure, unspecified Code(s): I50.9 - Heart failure, unspecified Status: Acute Assessment and Plan: probable acute on chronic diastolic heart failure * echo with right ventricular dysfunction, pulmonary hypertension, normal EF with grade 1 diastolic dysfunction * furosemide 40mg iv daily * 09/25 NM VQ lung scan intermediate probability with negative venous dopplers, patient improved steadily without any anticoagulants who suggesting no emboli as her underlying cause * BUN and creatinine fell with diuresis and transition to po lasix 09/29 * elevated troponin thought secondary to sepsis, congestive heart failure, and acute renal failure with no acute coronary event (4) Iron deficiency anemia: Qualifiers: Iron deficiency anemia type: unspecified iron deficiency Qualified Code(s): D50.9 - Iron deficiency anemia, unspecified Code(s): D50.9 - Iron deficiency anemia, unspecified Status: Acute Assessment and Plan: * baseline hemoglobin near 12 in 2015 * iron studies c/w deficiency * hgb 6.7 09/24 and required 1 U PRBC * gave IV iron 09/24 and will repeat this a.m. 09/27 and 1/30 today for total of 900 mg * EGD and colon 09/28 no obvious source of any blood loss. Esophagitis, diverticular disease and hemorrhoids * repeat cbc 10/09 (5) Transaminitis: Code(s): R74.0 - Nonspecific elevation of levels of transaminase and lactic acid dehydrogenase [LDH] Status: Acute Assessment and Plan: * likely due to hypoperfusion and continued to fall * hepatitis serologies negative * ruq u/s 09/24 negative * LFTS day of discharge all just above normal (6) Renal failure (ARF), acute on chronic: Qualifiers: Acute renal failure type: unspecified Chronic kidney disease stage: unspecified stage Qualified Code(s): N17.9 - Acute kidney failure, unspecified; N18.9 - Chronic kidney disease, unspecified Code(s): N17.9 - Acute kidney failure, unspecified; N18.9 - Chronic kidney disease, unspecified Status: Acute Assessment and Plan: * CKD3 by prior labs * baseline creatinine about 1.6 * 09/25 creatinine 1.9 * 09/26 creatinine 1.3 * 09/27 creatinine 1.4 * 09/28 creatinine 1.3 * 09/29 1.2 (7) COPD (chronic obstructive pulmonary disease): Qualifiers: COPD type: COPD with acute lower respira
--- NOTE | 2019-10-03 13:02 | PM.DS ---
DS: Diagnosis Admitting Diagnosis Admitting Diagnosis: Shock, unspecified Discharge Diagnosis (1) Severe sepsis: Code(s): A41.9 - Sepsis, unspecified organism; R65.20 - Severe sepsis without septic shock Status: Acute Assessment and Plan: pulmonary vs urinary source of infection Urine grew proteus sensitive to Zosyn received zosyn 7 day course Blood culture no growth 09/25 trasfer from IMU to medical floor (although baseline functional status is poor) Up to chair with PT by discharge which is her baseline (2) Acute hypercapnic respiratory failure: Code(s): J96.02 - Acute respiratory failure with hypercapnia Status: Acute Assessment and Plan: Likely due to sepsis with shock Suspect chronic hypoventilation as well with increased hco3 on basic and RVH with pul HTN Bipap at 16/8, FIO2 35%, rate 20 was used iinitially at night and patien recovered O2 2 LPM daytime as determined by respiratory rx and will be used at home suspect she has been hypoxic for some time (3) CHF (congestive heart failure): Qualifiers: Heart failure chronicity: unspecified Heart failure type: unspecified Qualified Code(s): I50.9 - Heart failure, unspecified Code(s): I50.9 - Heart failure, unspecified Status: Acute Assessment and Plan: probable acute on chronic diastolic heart failure echo with right ventricular dysfunction, pulmonary hypertension, normal EF with grade 1 diastolic dysfunction furosemide 40mg iv daily 09/25 NM VQ lung scan intermediate probability with negative venous dopplers, patient improved steadily without any anticoagulants who suggesting no emboli as her underlying cause BUN and creatinine fell with diuresis and transition to po lasix 09/29 elevated troponin thought secondary to sepsis, congestive heart failure, and acute renal failure with no acute coronary event (4) Iron deficiency anemia: Qualifiers: Iron deficiency anemia type: unspecified iron deficiency Qualified Code(s): D50.9 - Iron deficiency anemia, unspecified Code(s): D50.9 - Iron deficiency anemia, unspecified Status: Acute Assessment and Plan: baseline hemoglobin near 12 in 2016 iron studies c/w deficiency hgb 6.7 09/24 and required 1 U PRBC gave IV iron 09/24 and will repeat this a.m. 09/27 and 09/28 today for total of 900 mg EGD and colon 09/28 no obvious source of any blood loss. Esophagitis, diverticular disease and hemorrhoids repeat cbc 10/09 (5) Transaminitis: Code(s): R74.0 - Nonspecific elevation of levels of transaminase and lactic acid dehydrogenase [LDH] Status: Acute Assessment and Plan: likely due to hypoperfusion and continued to fall hepatitis serologies negative ruq u/s 09/24 negative LFTS day of discharge all just above normal (6) Renal failure (ARF), acute on chronic: Qualifiers: Acute renal failure type: unspecified Chronic kidney disease stage: unspecified stage Qualified Code(s): N17.9 - Acute kidney failure, unspecified; N18.9 - Chronic kidney disease, unspecified Code(s): N17.9 - Acute kidney failure, unspecified; N18.9 - Chronic kidney disease, unspecified Status: Acute Assessment and Plan: CKD3 by prior labs baseline creatinine about 1.6 09/25 creatinine 1.9 09/26 creatinine 1.3 09/27 creatinine 1.4 09/28 creatinine 1.3 09/29 1.2 (7) COPD (chronic obstructive pulmonary disease): Qualifiers: COPD type: COPD with acute lower respiratory infection Qualified Code(s): J44.0 - Chronic obstructive pulmonary disease with (acute) lower respiratory infection Code(s): J44.9 - Chronic obstructive pulmonary disease, unspecified Status: Acute Assessment and Plan: continue bronchodilators home 02 at 2L NC (8) Encephalopathy acute: Code(s): G93.40 - Encephalopathy, unspecified Status: Acute Assessment and Stuart
== END 2019-09-29 13:00 | disposition home or self-care (01) | DRG 871 ==
LOC: ANHED 18:51 → ANHIMU 22:35 → ANH3MEDSUR 09-25 22:27 → ANHIMU 10-03 14:11
PROVIDERS: Internal Medicine; Internal Medicine Gastroenterology; Physician Assistant; Admitting Provider Internal Medicine; Emergency Provider General Practice; PCP Internal Medicine; Visit Provider Internal Medicine
PROC: 0DJ08ZZ Inspection of Upper Intestinal Tract, Via Natural or Artificial Opening Endoscopic (ICD-10-PCS; CPT 43235; principal; 2019-09-28 12:00)
DX: A41.9 Sepsis, unspecified organism (principal); J96.02 Acute respiratory failure with hypercapnia; J96.01 Acute respiratory failure with hypoxia; I50.33 Acute on chronic diastolic (congestive) heart failure; G93.41 Metabolic encephalopathy; I13.0 Hypertensive heart and chronic kidney disease with heart failure and stage 1 through stage 4 chronic kidney disease, or unspecified chronic kidney disease; N17.9 Acute kidney failure, unspecified; Z68.44 Body mass index [BMI] 60.0-69.9, adult; J44.9 Chronic obstructive pulmonary disease, unspecified; E11.22 Type 2 diabetes mellitus with diabetic chronic kidney disease; R65.20 Severe sepsis without septic shock; N18.3 Chronic kidney disease, stage 3 (moderate); D50.9 Iron deficiency anemia, unspecified; M19.90 Unspecified osteoarthritis, unspecified site; R74.0 Nonspecific elevation of levels of transaminase and lactic acid dehydrogenase [LDH]; E11.42 Type 2 diabetes mellitus with diabetic polyneuropathy; K46.9 Unspecified abdominal hernia without obstruction or gangrene; K58.9 Irritable bowel syndrome, unspecified; K44.9 Diaphragmatic hernia without obstruction or gangrene; K57.30 Diverticulosis of large intestine without perforation or abscess without bleeding; D12.4 Benign neoplasm of descending colon; K64.8 Other hemorrhoids; K21.0 Gastro-esophageal reflux disease with esophagitis; G25.81 Restless legs syndrome; N32.81 Overactive bladder; E66.01 Morbid (severe) obesity due to excess calories; E78.5 Hyperlipidemia, unspecified; I89.0 Lymphedema, not elsewhere classified; K57.90 Diverticulosis of intestine, part unspecified, without perforation or abscess without bleeding; F41.8 Other specified anxiety disorders; Z23 Encounter for immunization; Z79.82 Long term (current) use of aspirin; Z99.3 Dependence on wheelchair
CPT/HCPCS: 36415; 36430; 36600; 71045; 71046; 73560; 76705; 78582; 80048; 80053; 80074; 80076; 80307; 81001; 82274; 82375; 82550; 82607; 82728; 82746; 82805; 83036; 83050; 83540; 83550; 83605; 83880; 84484; 85014; 85018; 85025; 85027; 85610; 85730; 86850; 86900; 86901; 86923; 87040; 87077; 87086; 87088; 87186; 87804; 88305; 90471; 90686; 93005; 93306; 93922; 93970; 94002; 94003; 94618; 94640; 94660; 96365; 96375; 97161; 97165; 99291; A9270; A9540; A9558; G0008; J1756; J1815; J1940; J2543; J2704; J3370; J7040; J7050; J7120; P9016

== ENCOUNTER 2020-12-26 09:52 | Outpatient (CLI) | payer MEDICARE, SELFPAY ==
--- NOTE | ~2020-12-26 | XR_ITS ---
XR shoulder LT min 2V 12/26/2020 10:46 Indication: Left shoulder pain Procedure: 6 views of the left shoulder Comparison: 06/08/2017 Findings: There is mild polyarticular osteoarthritis of the left glenohumeral and acromioclavicular j oints. No fracture, subluxation or dislocation. No focal soft tissue abnormality. Visualized lung par enchyma is unremarkable. Impression: 1: Mild polyarticular osteoarthritis of the left shoulder. Reviewed, dictated and finalized at location B. Impression: 1: Mild polyarticular osteoarthritis of the left shoulder.
[2020-12-26 10:24] LABS: Hematocrit 36.6 % (35.0-42.0); Hemoglobin 10.5 g/dL (11.7-13.8); Mean Corpuscular HGB Conc 28.7 g/dL (32.0-36.0); Mean Corpuscular Volume 83.8 fL (78.0-102.0); Mean Platelet Volume 10.2 fl (9.2-11.8); Platelet Count Result 246 K/mm3 (150-420); Red Blood Count 4.37 M/mm3 (4.20-5.40); Red Cell Distribution Width 15.9 % (11.6-14.4); White Blood Count 9.5 K/mm3 (4.8-10.8)
[2020-12-26 10:40] LABS: Hemoglobin A1C 8.7 % (<5.7)
[2020-12-26 11:39] LABS: Alanine Aminotransferase 14 U/L (14-59); Albumin Level 3.5 g/dL (3.4-5.0); Alkaline Phosphatase 109 U/L (46-116); Anion Gap 6 mmol/L (8-16); Aspartate Amino Transferase 10 U/L (15-37); Bilirubin,Total 0.5 mg/dL (0.00-1.00); Blood Urea Nitrogen 31 mg/dL (7-18); Calcium 9.4 mg/dL (8.5-10.1); Carbon Dioxide 31 mmol/L (21-32); Chloride 102 mmol/L (98-108); Cholesterol 157 mg/dL (0-200); Estimated Glomerular Filt Rate 33; Ferritin 14 ng/mL (8-252); Glucose 141 mg/dL (70-99); HDL Direct 65 mg/dL (40-60); Iron 25 ug/dL (50-170); LDL Cholesterol Calculated 68 mg/dL (<130); Osmolality Calculated 296 mOsm/kg (285-295); Percent Iron Saturation 7 % (12-57); Potassium 5.8 mmol/L (3.5-5.1); Sodium 139 mmol/L (136-145); Total Protein 7.1 g/dL (6.4-8.2); Triglycerides 121 mg/dL (0-150)
[2020-12-27 14:12] LABS: Creatinine Urine 135.86 mg/dL (40-278)
[2020-12-27 14:13] LABS: MALB Creatinine Ratio 87.2 mg/g (0-30); Microalbumin Urine Random 118.6 mg/L
== END 2020-12-26 09:53 | disposition home or self-care (01) ==
LOC: CHSLAB 09:56
PROVIDERS: PCP Internal Medicine; Visit Provider Nurse Practitioner
DX: M25.512 Pain in left shoulder (principal); E11.9 Type 2 diabetes mellitus without complications; I10 Essential (primary) hypertension; Z79.4 Long term (current) use of insulin; E78.5 Hyperlipidemia, unspecified; G25.81 Restless legs syndrome
CPT/HCPCS: 36415; 73030; 80053; 80061; 82043; 82728; 83036; 83540; 83550; 85027

== ENCOUNTER 2021-03-31 12:51 | Outpatient (CLI) | payer MEDICARE, SELFPAY ==
[2021-03-31 13:14] LABS: Basophils Absolute Auto 0.04 K/mm3 (0.00-0.10); Basophils Percent Auto 0.6 % (0.0-1.0); Eosinophils Absolute Auto 0.21 K/mm3 (0.02-0.50); Hematocrit 44.6 % (35.0-42.0); Hemoglobin 14.2 g/dL (11.7-13.8); Immature Granulocyte Absolute 0.01 K/mm3 (0.00-0.00); Immature Granulocyte Percent A 0.1 % (0.0-0.0); Lymphocytes Absolute Auto 1.22 K/mm3 (1.10-4.50); Lymphocytes Percent Auto 17.7 % (18.0-42.0); Mean Corpuscular HGB Conc 31.8 g/dL (32.0-36.0); Mean Corpuscular Hemoglobin 28.5 pg (27.0-31.0); Mean Corpuscular Volume 89.6 fL (78.0-102.0); Mean Platelet Volume 10.5 fl (9.2-11.8); Monocytes Absolute Auto 0.51 K/mm3 (0.10-0.90); Monocytes Percent Auto 7.4 % (2.0-11.0); Neutrophils Absolute Auto 4.9 K/mm3 (1.7-7.2); Neutrophils Percent Auto 71.2 % (50.0-70.0); Platelet Count Result 206 K/mm3 (150-420); Red Blood Count 4.98 M/mm3 (4.20-5.40); Red Cell Distribution Width 15.3 % (11.6-14.4); White Blood Count 6.9 K/mm3 (4.8-10.8)
[2021-03-31 14:14] LABS: Rheumatoid Factor Screen Negative (Negative)
[2021-03-31 14:17] LABS: Alanine Aminotransferase 22 U/L (14-59); Albumin Level 3.5 g/dL (3.4-5.0); Alkaline Phosphatase 88 U/L (46-116); Anion Gap 11 mmol/L (8-16); Aspartate Amino Transferase 17 U/L (15-37); Bilirubin,Total 0.6 mg/dL (0.00-1.00); Blood Urea Nitrogen 23 mg/dL (7-18); Calcium 9.1 mg/dL (8.5-10.1); Carbon Dioxide 27 mmol/L (21-32); Chloride 106 mmol/L (98-108); Estimated Glomerular Filt Rate 42; Ferritin 37 ng/mL (8-252); Glucose 69 mg/dL (70-99); Iron 52 ug/dL (50-170); Osmolality Calculated 299 mOsm/kg (285-295); Percent Iron Saturation 18 % (12-57); Potassium 4.5 mmol/L (3.5-5.1); Sodium 144 mmol/L (136-145); Total Protein 6.5 g/dL (6.4-8.2); Uric Acid 8.2 mg/dL (2.6-6.0)
[2021-03-31 14:23] LABS: CRP < 0.5 mg/dL (0.0-0.9); Hemoglobin A1C 6.4 % (<5.7)
[2021-03-31 14:32] LABS: Erythrocyte Sedimentation Rate 16 mm/hr (0-20)
[2021-04-02 22:56] LABS: Anti Nuclear Antibody Titer 1:40 (Negative)
[2021-04-03 10:06] LABS: Anti Cyclic Citrullinated Pept <16 Units (<20)
== END 2021-03-31 12:52 | disposition home or self-care (01) ==
LOC: CHSLAB 13:01
PROVIDERS: PCP Family Medicine; Visit Provider Family Medicine
DX: M79.642 Pain in left hand (principal); M13.0 Polyarthritis, unspecified; G89.29 Other chronic pain; D50.9 Iron deficiency anemia, unspecified; E11.9 Type 2 diabetes mellitus without complications; I10 Essential (primary) hypertension
CPT/HCPCS: 36415; 80053; 82728; 83036; 83540; 83550; 84550; 85025; 85652; 86038; 86039; 86140; 86200; 86430

== ENCOUNTER 2021-04-23 11:50 | Outpatient (NON) | payer MEDICARE, SELFPAY ==
[2021-04-23 12:06] LABS: Appearance Urine Cloudy (Clear); Bilirubin Urine Negative (Negative); Color Urine Light Yellow (Yellow); Glucose Urine UA Negative (Negative); Ketones Urine Negative (Negative); Leukocyte Esterase Ur Trace LEU/UL (Negative); Nitrate Urine Negative (Negative); Protein Urine Negative (Negative); Specific Grav Ur 1.025 (1.010-1.020); Urobilinogen Urine 0.2 mg/dL (0.2-1.0)
[2021-04-23 12:12] LABS: Add Urine Microscopic? YES; Bacteria Urine 1+ /hpf; Blood Urine Trace-Intact (Negative); Squamous Epithelial Cell Urine Few /hpf (Few)
== END 2021-04-23 11:51 | disposition home or self-care (01) ==
LOC: CHSLAB 11:53
PROVIDERS: Visit Provider Family Medicine
DX: R30.0 Dysuria (principal); N39.0 Urinary tract infection, site not specified
CPT/HCPCS: 81001; 87077; 87086; 87088; 87186

== ENCOUNTER 2021-09-09 14:57 | Outpatient (CLI) | payer MEDICARE, SELFPAY ==
--- NOTE | ~2021-09-09 | XR_ITS ---
EXAMINATION: XR shoulder LT min 2V DATE: 09/09/2021 15:31 INDICATION: Left shoulder pain TECHNIQUE: AP internally and externally rotated and transscapular Y views of the left shoulder were o btained. COMPARISON: 12/26/2020 FINDINGS: Normal alignment. No fracture.Mild osteoarthritis at the left glenohumeral and acromioclavicular joce nts. Small anterior subacromial spur and small inferiorly directed osteophyte at the lateral head of the clavicle. Suggestion of mild erosion along the greater tuberosity which can be seen in the settin g of rotator cuff disease. Soft tissues are unremarkable. Visualized portion of the left lung is federico r. IMPRESSION: 1. Mild glenohumeral and acromioclavicular osteoarthritis. 2. Suggestion of mild erosive change at the greater tuberosity which can be seen with rotator cuff di sease. Reviewed, dictated and finalized at location A. AN NANNY IMPRESSION: 1. Mild glenohumeral and acromioclavicular osteoarthritis. 2. Suggestion of mild erosive change at the greater tuberosity which can be see n with rotator cuff disease.
--- NOTE | ~2021-09-09 | XR_ITS ---
EXAMINATION: XR elbow LT 2V DATE: 09/09/2021 15:31 INDICATION: Left elbow pain. TECHNIQUE: 4 views of left elbow were obtained. COMPARISON: None. FINDINGS: Bone alignment is normal. No fracture. There is mild elbow joint osteoarthritis. There are enthesophytes at medial and lateral humeral epicondyles. No elbow joint effusion. IMPRESSION: 1. Mild elbow joint osteoarthritis. Reviewed, dictated and finalized at location B. ETRICAL NURSE
== END 2021-09-09 14:58 | disposition home or self-care (01) ==
LOC: CHSLAB 14:59
PROVIDERS: PCP Nurse Practitioner Family; Visit Provider Nurse Practitioner Family
DX: M79.602 Pain in left arm (principal)
CPT/HCPCS: 73030; 73070

== ENCOUNTER 2021-11-14 14:55 | Outpatient (CLI) | payer MEDICARE, SELFPAY ==
[2021-11-14 15:16] LABS: Hemoglobin 13.7 g/dL (11.7-13.8); Mean Corpuscular HGB Conc 31.1 g/dL (32.0-36.0); Mean Corpuscular Hemoglobin 28.9 pg (27.0-31.0); Mean Corpuscular Volume 92.8 fL (78.0-102.0); Mean Platelet Volume 10.2 fl (9.2-11.8); Platelet Count Result 212 K/mm3 (150-420); Red Blood Count 4.74 M/mm3 (4.20-5.40); Red Cell Distribution Width 13.7 % (11.6-14.4); White Blood Count 8.1 K/mm3 (4.8-10.8)
[2021-11-14 15:51] LABS: Hemoglobin A1C 6.5 % (<5.7)
[2021-11-14 16:00] LABS: Alanine Aminotransferase 19 U/L (14-59); Albumin Level 3.1 g/dL (3.4-5.0); Alkaline Phosphatase 112 U/L (46-116); Anion Gap 5 mmol/L (8-16); Aspartate Amino Transferase 18 U/L (15-37); Bilirubin,Total 0.6 mg/dL (0.00-1.00); Blood Urea Nitrogen 18 mg/dL (7-18); Calcium 8.5 mg/dL (8.5-10.1); Carbon Dioxide 32 mmol/L (21-32); Chloride 105 mmol/L (98-108); Estimated Glomerular Filt Rate 35; Glucose 120 mg/dL (70-99); Osmolality Calculated 296 mOsm/kg (285-295); Potassium 4.3 mmol/L (3.5-5.1); Sodium 142 mmol/L (136-145); Total Protein 6.2 g/dL (6.4-8.2)
== END 2021-11-14 14:56 | disposition home or self-care (01) ==
LOC: CHSLAB 14:58
PROVIDERS: PCP Family Medicine; Visit Provider Family Medicine
DX: E11.9 Type 2 diabetes mellitus without complications (principal); Z79.4 Long term (current) use of insulin; I10 Essential (primary) hypertension
CPT/HCPCS: 36415; 80053; 83036; 85027

== ENCOUNTER 2021-12-23 11:29 | Outpatient (NON) | payer MEDICARE, SELFPAY ==
[2021-12-23 11:49] LABS: Add Urine Microscopic? YES; Appearance Urine Cloudy (Clear); Bilirubin Urine Negative (Negative); Blood Urine 2+ (Negative); Color Urine Light Yellow (Yellow); Glucose Urine UA Negative (Negative); Ketones Urine Negative (Negative); Leukocyte Esterase Ur 3+ LEU/UL (Negative); Nitrate Urine Positive (Negative); Protein Urine Negative (Negative); Urobilinogen Urine 0.2 mg/dL (0.2-1.0); pH Urine 6.5 (5.0-8.0)
[2021-12-23 12:03] LABS: Bacteria Urine 3+ /hpf; Renal Epithelial Cells Urine Few /hpf; Squamous Epithelial Cell Urine Few /hpf (Few); WBC Urine 51-75 /hpf (0-3)
== END 2021-12-23 11:30 | disposition home or self-care (01) ==
LOC: CHSLAB 11:30
PROVIDERS: Visit Provider Family Medicine
DX: N39.0 Urinary tract infection, site not specified (principal)
CPT/HCPCS: 81001; 87077; 87086; 87088; 87186

== ENCOUNTER 2022-01-30 12:23 | Outpatient (NON) | payer MEDICARE, SELFPAY | END 2022-01-30 12:24 | disposition home or self-care (01) | LOC: CHSLAB 12:25 | PROVIDERS: PCP Family Medicine; Visit Provider Family Medicine | DX: N39.0 Urinary tract infection, site not specified (principal) | CPT/HCPCS: 87077; 87086; 87088; 87186 ==

== ENCOUNTER 2022-05-11 14:16 | Outpatient (CLI) | payer MEDICARE, SELFPAY ==
[2022-05-11 14:34] LABS: Hematocrit 42.6 % (35.0-42.0); Hemoglobin 13.3 g/dL (11.7-13.8); Mean Corpuscular HGB Conc 31.2 g/dL (32.0-36.0); Mean Corpuscular Hemoglobin 29.9 pg (27.0-31.0); Mean Corpuscular Volume 95.7 fL (78.0-102.0); Mean Platelet Volume 10.3 fl (9.2-11.8); Platelet Count Result 212 K/mm3 (150-420); Red Blood Count 4.45 M/mm3 (4.20-5.40); Red Cell Distribution Width 13.2 % (11.6-14.4); White Blood Count 6.3 K/mm3 (4.8-10.8)
[2022-05-11 15:16] LABS: Alanine Aminotransferase 17 U/L (14-59); Albumin Level 3.2 g/dL (3.4-5.0); Alkaline Phosphatase 97 U/L (46-116); Anion Gap 6 mmol/L (8-16); Aspartate Amino Transferase 18 U/L (15-37); Bilirubin,Total 0.6 mg/dL (0.00-1.00); Blood Urea Nitrogen 21 mg/dL (7-18); Calcium 9.2 mg/dL (8.5-10.1); Carbon Dioxide 32 mmol/L (21-32); Chloride 102 mmol/L (98-108); Estimated Glomerular Filt Rate 43; Folic Acid 19.5 ng/mL (8.6->20); Glucose 126 mg/dL (70-99); Osmolality Calculated 295 mOsm/kg (285-295); Potassium 4.3 mmol/L (3.5-5.1); Sodium 140 mmol/L (136-145); Total Protein 6.6 g/dL (6.4-8.2); Vitamin B12 980 pg/mL (193-986)
[2022-05-11 15:21] LABS: Thyroid Stimulating Hormone Reflex 1.61 u/IU/mL (0.36-3.74)
== END 2022-05-11 14:17 | disposition home or self-care (01) ==
LOC: CHSLAB 14:22
PROVIDERS: PCP Family Medicine; Visit Provider Family Medicine
DX: R41.89 Other symptoms and signs involving cognitive functions and awareness (principal); E11.9 Type 2 diabetes mellitus without complications; E53.8 Deficiency of other specified B group vitamins
CPT/HCPCS: 36415; 80053; 82607; 82746; 84443; 85027

== ENCOUNTER 2022-07-20 12:49 | Observation (INO) | payer MEDICARE, MEDICAID, SELFPAY ==
[2022-07-20] VITALS (10 sets, daily range): BP systolic 147–161; BP diastolic 68–89; PULSE 75–94; RESP 16–20; TEMP 36.3–37; O2SAT 94–99; BMI 67.0
--- NOTE | ~2022-07-20 | CT_ITS ---
EXAMINATION: CT chest abdomen pelvis wo con DATE: 07/20/2022 14:30 INDICATION: sob, abd pain . TECHNIQUE: Computed tomography (CT) of the chest, abdomen, and pelvis was performed without intraveno us contrast. Automated exposure control and iterative reconstruction technique were employed. The dos e-length product was 1955.32 mGy-cm. COMPARISON: None FINDINGS: Exam limited by lack of contrast and body habitus (causing significant beam hardening and quantum mot tle). Thoracic aorta: No significant dilation. Mild arch calcification. Lung parenchyma and airways: Left upper lung scarring. Multiple sub-4 mm left lung nodules. Thoracic inlet, axillae and chest wall: Hypodense 1.9 cm right inferior thyroid nodule, incompletely included in the [id number]-ro-cvck. Mediastinum: Large hiatal hernia containing the gastric fundus and a portion of the gastric body. Org anoaxial positioning of the herniated portions of stomach. Central pulmonary artery dilation as can b e seen with pulmonary arterial hypertension. Heart and pericardium: Cardiomegaly. No pericardial effusion. Coronary artery calcifications: Mild. Pleura: No effusion or mass. Thoracic bones: No acute osseous finding in the chest. ABDOMEN/PELVIS: Liver: Enlarged. Biliary/Gallbladder: The gallbladder is partially collapsed. No bile duct dilation. Pancreas: Mild atrophy. Spleen: Mildly enlarged. Adrenals:No mass. Kidneys: Bilateral cortical atrophy and scarring. 2.4 cm indeterminate density exophytic left midpole lesion. No hydronephrosis. GI tract: No small or large bowel dilation. Normal appendix. Diverticulosis without diverticulitis. Mesentery/Peritoneum: No ascites, mass, or free air. Retroperitoneum: No mass. Atherosclerotic abdominal aortic and/or arterial calcifications. Pelvis: The bladder is decompressed by a Beal catheter. Soft Tissues: Asymmetric subcutaneous stranding involving the right lateral aspect of the abdomen and pelvis in the right lower aspect of the pannus, which are incompletely included in the [id number] .. These changes are present in a background of more symmetric and generalized subcutaneous stranding /edema predominantly in the lower abdomen/pelvis. Abdominopelvic bones: No acute osseous finding in the abdomen/pelvis. IMPRESSION: Limited examination, as detailed above. 1. Asymmetric inflammatory subcutaneous stranding and/or edema involving the right lateral aspect of the abdomen and pelvis and right lower aspect of the pannus, incompletely visualized. Correlate for f indings of cellulitis or contusion. 2. Hepatosplenomegaly. 3. 1.9 cm right inferior thyroid nodule, recommend nonemergent, outpatient thyroid ultrasound. 4. 2.4 cm indeterminate left midpole renal lesion, recommend nonemergent, outpatient renal MRI withou t and with contrast. 5. Large hiatal hernia with organoaxial positioning of the herniated portions of stomach, commonly as ymptomatic. Organo-axial volvulus should be considered if accompanied by symptoms of severe sudden ep igastric pain, intractable retching without vomiting, and inability to pass a nasogastric tube. 6. Multiple sub-4 mm left lung nodules, no follow-up required unless considered high risk for lung ca ncer, in which case consider a 12 month follow-up low-dose noncontrast CT of the chest. Reviewed, dictated and finalized at [facility]. [employer] IMPRESSION: Limited examination, as detailed above. 1. Asymmetric inflammatory subcutaneous stranding and/or edema involving the ri ght lateral aspect of the abdomen and pelvis and right lower aspect of the pann us, incompletely visualized. Correlate for findings of cellulitis or contusion. 2. Hepatosplenomegaly. 3. 1.9 cm right inferior thyroid nodule, recommend
--- NOTE | 2022-07-20 13:36 | ECG_ITS ---
Measurements Intervals [place] Rate: 86 P: 40 NE: 140 QRS: 26 QRSD: 101 T: 37 QT: 392 QTc: 470 Interpretive Statements SINUS RHYTHM DELAYED PRECORDIAL R/S TRANSITION BORDERLINE ST-T WAVE ABNORMALITY- INFERIOR LEADS BASELINE WANDER- II, III BORDERLINE ECG COMPARED TO ECG 09/23/2019 17:19:09 NO SIGNIFICANT CHANGES Electronically Signed On 07-20-2022 14:15:35 [employer] by Dario Dudley D.O.
[2022-07-20 14:03] LABS: Base Excess ABG 1.6 mmol/L (0-2); HCO3 ABG 28.2 mmol/L (23-29); Oxygen Content ABG 16.4 %vol (16.0-22.0); Oxygen Saturation ABG 95.9 % (95-97); Oxyhemoglobin 95.3 % (94-100); PCO2 ABG 53.2 mmHg (35-45); PO2 ABG 87.3 mmHg (75-85); Total Hemoglobin 12.2 g/dL (12.0-18.0); pH ABG 7.34 (7.35-7.45)
[2022-07-20 14:06] LABS: Site Drawn LEFT RADIAL
[2022-07-20 14:07] LABS: Device ROOM AIR; Modified Allen's Test Pass
[2022-07-20 14:12] LABS: Hematocrit 36.9 % (35.0-42.0); Immature Granulocyte Percent A 0.5 % (0.0-0.0); Mean Corpuscular HGB Conc 29.8 g/dL (32.0-36.0); Mean Corpuscular Volume 90.7 fL (78.0-102.0); Mean Platelet Volume 10.3 fl (9.2-11.8); Monocytes Percent Auto 7.8 % (2.0-11.0); Neutrophils Percent Auto 75.9 % (50.0-70.0); Platelet Count Result 208 K/mm3 (150-420); Red Blood Count 4.07 M/mm3 (4.20-5.40); Red Cell Distribution Width 13.4 % (11.6-14.4); White Blood Count 6.3 K/mm3 (4.8-10.8)
[2022-07-20 14:13] LABS: Basophils Absolute Auto 0.05 K/mm3 (0.00-0.10); Basophils Percent Auto 0.8 % (0.0-1.0); Immature Granulocyte Absolute 0.03 K/mm3 (0.00-0.00); Lymphocytes Absolute Auto 0.95 K/mm3 (1.10-4.50); Monocytes Absolute Auto 0.49 K/mm3 (0.10-0.90); Neutrophils Absolute Auto 4.8 K/mm3 (1.7-7.2)
[2022-07-20 14:20] LABS: Appearance Urine Clear (Clear); Bilirubin Urine Negative (Negative); Blood Urine 2+ (Negative); Glucose Urine UA Negative (Negative); Ketones Urine Negative (Negative); Leukocyte Esterase Ur 1+ (Negative); Nitrate Urine Negative (Negative); Protein Urine Negative (Negative); Specific Grav Ur 1.015 (1.010-1.020); Urobilinogen Urine 0.2 mg/dL (0.2-1.0); pH Urine 6.5 (5.0-8.0)
[2022-07-20 14:29] LABS: Add Urine Microscopic? YES; Bacteria Urine 1+ /hpf; Color Urine Light Yellow (Yellow); Squamous Epithelial Cell Urine Moderate /hpf (Few)
[2022-07-20] MEDS: FUROSEMIDE INJ 100 MG/10 ML VIAL 80 MG IV PUSH (14:31)
[2022-07-20 14:55] LABS: Alanine Aminotransferase 11 U/L (14-59); Albumin Level 2.8 g/dL (3.4-5.0); Alkaline Phosphatase 88 U/L (46-116); Anion Gap 4 mmol/L (8-16); Aspartate Amino Transferase 17 U/L (15-37); Bilirubin,Total 0.6 mg/dL (0.00-1.00); Blood Urea Nitrogen 15 mg/dL (7-18); Calcium 8.5 mg/dL (8.5-10.1); Carbon Dioxide 33 mmol/L (21-32); Chloride 107 mmol/L (98-108); Estimated CRCL calculation 70 ml/min; Estimated Glomerular Filt Rate 50; Glucose 71 mg/dL (70-99); Osmolality Calculated 296 mOsm/kg (285-295); Potassium 4.4 mmol/L (3.5-5.1); Sodium 144 mmol/L (136-145); Total Protein 6.2 g/dL (6.4-8.2); Troponin I 16.1 ng/L (0.00-60.4)
[2022-07-20 20:49] LABS: Glucose Point of Care 75 mg/dl (65-105)
--- NOTE | 2022-07-20 21:49 | ED.ABDPAIN ---
HPI - Abdominal Pain General Chief Complaint: Abdominal Pain Stated Complaint: Ambulance Time Seen by Provider: 07/20/22 12:51 Source: patient, EMS and RN notes reviewed Mode of arrival: EMS Limitations: no limitations History of Present Illness MD elicited complaint: abdominal pain and other (diarrhea, nausea, no vomiting) Onset (ago): day(s) (3) Pain Consistency: constant Location: periumbilical Severity: mild Pain scale (0-10): 3 Quality: cramping Radiation: none Migration to: no migration Exacerbating factors: nothing Relieving factors: nothing Associated symptoms: nausea and diarrhea Related Data Patient : No Allergies Allergy/AdvReac Type Severity Reaction Status Date / Time NSAIDS (Non-Steroidal Allergy Unknown Other Verified 07/07/22 07:05 Anti-Inflamma Review of Systems Review of Systems: All systems reviewed & are unremarkable except as noted in HPI and below Constitutional: Constitutional: Reports no additional constitutional complaints Eyes: Eyes: Reports no additional eye complaints ENT: Reports system reviewed and no additional complaints, except as documented Cardiovascular: Cardiovascular: Reports no additional cardiovascular complaints Respiratory: Respiratory: Reports no additional respiratory complaints Gastrointestinal: Gastrointestinal: Reports abdominal pain and Reports diarrhea Genitourinary: Genitourinary: Reports no additional female genitourinary complaints Musculoskeletal: Musculoskeletal: Reports no additional musculoskeletal complaints Integumentary/Breasts: Skin/Breast: Reports system reviewed and no additional complaints, except as docu Neurologic: Reports system reviewed and no additional complaints, except as documented Psychiatric: Psychiatric: Reports no additional psychiatric complaints Endocrine: Endocrine: Reports no additional endocrine complaints Hematologic/Lymphatic: Hematologic/Lymphatic: Reports no additional hematologic/lymphatic complaints Allergic/Immunologic: Allergic/Immunologic: Reports no additional allergic/immunologic complaints [facility] Past Medical History Medical History Candidiasis, intertrigo CHF (congestive heart failure) Chronic kidney disease, stage III (moderate) Chronic midline low back pain Chronic pain CKD (chronic kidney disease), stage III COPD (chronic obstructive pulmonary disease) Degenerative joint disease Depression Depression with anxiety With history of panic attacks Diabetes Diabetic polyneuropathy Diverticulosis Dysphagia Essential (primary) hypertension Hiatal hernia Small hiatal hernia noted on barium swallow performed due to dysphagia and sensation of globus. Of the mid distal esophagus, repeated mid distal esophageal reflux Hyperlipidemia Irritable bowel syndrome Left hand pain Left shoulder pain Lymphedema of both lower extremities Morbid obesity with BMI of 60.0-69.9, adult CIRILO (obstructive sleep apnea) Osteoarthritis Overactive bladder With chronic urinary incontinence Beal catheter placed in the ER Panic disorder [episodic paroxysmal anxiety] Polyarthritis of multiple sites Postmenopausal Restless leg syndrome Spondylosis Type 2 diabetes mellitus treated with insulin Surgical History Surgical History No pertinent past surgical history Family History Family History Sibling , Sister Cancer Psychiatric illness Father Cancer Mother Cancer Son Cancer Social History Social History Social History: The patient lives at home with her long-term significant other. 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 She has never smoked but does have significant secondhand smoke exposure. She drinks a small amount of alcohol on rare occasion. She
--- NOTE | 2022-07-20 22:18 | PC.NURSE ---
pt was given cottage cheese , jello. tolerated well no complaint of nausea or vomiting throughout stay in the er.
--- NOTE | 2022-07-20 22:30 | ADMGEN ---
This patient, Delilah Ludwig, was admitted to 2nd Floor Room 227-1. Patient/family oriented to hospital policies and general routines including ID bracelet, bed and alarms, visiting hours, pain management, procedures, bathroom and other care routines, personal items, smoking policy, room service/diet, and visiting hours. Information on how to activate the Rapid Response Team has been discussed. Patient/Family are encouraged to report perceived risks to care and to ask questions if they do not understand what they are told or what they should do.
--- NOTE | 2022-07-20 22:33 | PC.NURSE ---
[id number] call to sherin, charge nurse for bed assignment, [id number]
[2022-07-20 22:42] LABS: Glucose Point of Care 95 mg/dl (65-105)
--- NOTE | 2022-07-20 22:45 | PC.NURSE ---
During admission assessment patient states she does not want current emergency contact Rupesh Emanuelantonio (significant other) given any information, would prefer her son, Inder Ludwig ([phone]) be emergency contact. States she does not plan on going back to live with Rupesh, is wanting NH placement.
[2022-07-20] MEDS: metroNIDAZOLE 500 MG/ISO 100ML 500 MG/100 ML BAG 100 MG IVPB (23:19)
[2022-07-20] MEDS: rOPINIRole HCL 1 MG TABLET 4 MG PO (23:20)
[2022-07-20] MEDS: traZODone HCL 50 MG TABLET PO (23:20)
[2022-07-21] VITALS: BP 142/63; PULSE 90; RESP 20; TEMP 37; O2SAT 96
[2022-07-21 00:41] VITALS: PULSE 90; RESP 20; O2SAT 96
[2022-07-21] MEDS: metroNIDAZOLE 500 MG/ISO 100ML 500 MG/100 ML BAG 100 MG IVPB (05:20)
[2022-07-21 05:39] LABS: Hematocrit 38.5 % (35.0-42.0); Hemoglobin 11.3 g/dL (11.7-13.8); Mean Corpuscular HGB Conc 29.4 g/dL (32.0-36.0); Mean Corpuscular Hemoglobin 26.4 pg (27.0-31.0); Mean Platelet Volume 10.2 fl (9.2-11.8); Platelet Count Result 190 K/mm3 (150-420); Red Blood Count 4.28 M/mm3 (4.20-5.40); Red Cell Distribution Width 13.4 % (11.6-14.4); White Blood Count 5.7 K/mm3 (4.8-10.8)
[2022-07-21 05:45] VITALS: O2SAT 91
[2022-07-21 05:48] LABS: Hemoglobin A1C 6.7 % (<5.7)
[2022-07-21 05:52] LABS: Alanine Aminotransferase 7 U/L (14-59); Albumin Level 2.7 g/dL (3.4-5.0); Alkaline Phosphatase 85 U/L (46-116); Anion Gap 5 mmol/L (8-16); Aspartate Amino Transferase 13 U/L (15-37); Bilirubin,Total 0.6 mg/dL (0.00-1.00); Blood Urea Nitrogen 15 mg/dL (7-18); Calcium 8.4 mg/dL (8.5-10.1); Carbon Dioxide 36 mmol/L (21-32); Chloride 103 mmol/L (98-108); Estimated CRCL calculation 62 ml/min; Estimated Glomerular Filt Rate 46; Glucose 104 mg/dL (70-99); Magnesium 1.3 mg/dL (1.8-2.4); Osmolality Calculated 298 mOsm/kg (285-295); Potassium 4.1 mmol/L (3.5-5.1); Sodium 144 mmol/L (136-145)
[2022-07-21 07:27] LABS: Glucose Point of Care 108 mg/dl (65-105)
[2022-07-21] MEDS: PROCHLORPERAZINE EDISYLATE 10 MG/2 ML VIAL IV PUSH (07:56)
[2022-07-21 08:00] VITALS: BP 151/64; PULSE 92; TEMP 36.9; O2SAT 96
--- NOTE | 2022-07-21 08:45 | PC.NURSE ---
Nurse administered compizine for nausea, and patient went to sleep and was very groggy. Unable to administer oral medications at this time. TOBACCO STEMMER MACHINE checked on patient and determined that patient was drowsy due to medication administration. Will continue to monitor.
[2022-07-21] MEDS: ATORVASTATIN 40 MG TABLET 80 MG PO (10:17)
[2022-07-21] MEDS: PANTOPRAZOLE 40 MG TABLET PO (10:17)
[2022-07-21] MEDS: GABAPENTIN 300 MG CAPSULE PO ×3 (10:17→16:43)
[2022-07-21] MEDS: lisinopriL 20 MG TABLET PO (10:18)
[2022-07-21] MEDS: SERTRALINE HCL 50 MG TABLET 100 MG PO (10:18)
[2022-07-21] MEDS: FUROSEMIDE 20 MG TABLET PO (10:19)
[2022-07-21] MEDS: POTASSIUM CHLORIDE 10 MEQ TABLET PO (10:19)
[2022-07-21] MEDS: allopurinoL 100 MG TABLET PO ×2 (10:19→16:43)
[2022-07-21] MEDS: NAPHAZOLINE/PHENIRAM OP SOLN 15 ML BTL 1 DROP EACH EYE ×4 (10:20→21:01)
[2022-07-21] MEDS: MIRABEGRON 25 MG ER TABLET PO (10:20)
[2022-07-21] MEDS: FLUTICASONE PROPIONATE 0.05% NA SPR 16 GM BTL (*BKC) 1 SPRAY NASAL (10:22)
--- NOTE | 2022-07-21 10:22 | PM.IMHP ---
H&P: HPI History of Present Illness Date/Time: 07/21/22 10:22 Chief Complaint: unable to care for self Narrative: this is a 71-year-old female a presented to our emergency department because she was unable to care for herself at home. Patient has a past medical history of congestive heart failure, chronic kidney disease, chronic lower back pain, COPD, depression and anxiety, diabetes, dysphagia, hypertension, hiatal hernia, hyperlipidemia, it about syndrome, sleep apnea, restless legs syndrome and osteoarthritis. According to patient she called EMS to transport her to our facility because she felt different . patient notes that she felt different and was possible confusion she is unaware of how many days she felt confused. Patient notes that up until 2 days ago her significant other care for her. Patient notes that her significant other has since left and found someone new and she is currently at home alone unable to walk or care for herself. She has opted to be placed in a care home WBC 6.3 hemoglobin 11.0 hematocrit 36.9 platelets 208, lactic acid 1.0 sodium 144, potassium 4.4, BUN 15, creatinine 1.09, glucose 71, total bilirubin 0.6, AST 17, ALT 11, troponin 16.1, UA positive for blood leukocytes bacteria CT of the abdomen indicates a 1.5 thyroid and lungs nodule, of renal lesion, and large hiatal hernia. The patient denies SOB, CP, palpitation, extremity numbness, lightheadedness, dizziness, constipation, diarrhea, chills, or fever. case coordination has been consulted for possible placement Review of Systems Review of Systems: GENERAL: morbidly obese, in no apparent distress. HEAD: normocephalic, atraumatic. EYES: PERRL. Sclera clear/white. Vision is grossly intact. EARS: External ears normal, auditory canals clear and without drainage, TMs normal without perforation. Hearing grossly intact. NOSE: External nose normal with no obvious nasal discharge, nares without redness, no rhinorrhea. THROAT: Mucous membranes moist, posterior pharynx clear. NECK: Neck supple, non-tender without lymphadenopathy, masses or thyromegaly. CARDIOVASCULAR: Regular rate and rhythm without murmurs, gallops, or rubs. RESPIRATORY: Clear to auscultation. Breath sounds equal bilaterally. No wheezes, rales, or rhonchi. GASTROINTESTINAL: Abdomen soft, non-tender, nondistended. Bowel sounds are active. No hepato-splenomegaly, or palpable masses. No guarding. SKIN: edema with redness the pannus is area NEURO: awake, alert, and oriented to person, place and time. There were no obvious focal neurologic abnormalities. EXTREMITIES: Normal range of motion. trace edema. No calf tenderness. [facility] Past Medical History Medical History Candidiasis, intertrigo CHF (congestive heart failure) Chronic kidney disease, stage III (moderate) Chronic midline low back pain Chronic pain CKD (chronic kidney disease), stage III COPD (chronic obstructive pulmonary disease) Degenerative joint disease Depression Depression with anxiety With history of panic attacks Diabetes Diabetic polyneuropathy Diverticulosis Dysphagia Essential (primary) hypertension Hiatal hernia Small hiatal hernia noted on barium swallow performed due to dysphagia and sensation of globus. Of the mid distal esophagus, repeated mid distal esophageal reflux Hyperlipidemia Irritable bowel syndrome Left hand pain Left shoulder pain Lymphedema of both lower extremities Morbid obesity with BMI of 60.0-69.9, adult CIRILO (obstructive sleep apnea) Osteoarthritis Overactive bladder With chronic urinary incontinence Beal catheter placed in the ER Panic disorder [episodic paroxysmal anxiety] Polyarthritis of multiple sites Postmenopausal Restless leg syndrome Spondylosis Type 2 diabetes mellitus treated with insulin Surgical History Surgical History No pertinent past surgical history
--- NOTE | 2022-07-21 10:25 | PCDIET ---
Patient awake and alert at this time.
[2022-07-21] MEDS: TOLNAFTATE 1% POWDER 45 GM BTL 1 APPLIC TOPICAL ×2 (10:31→22:30)
[2022-07-21] MEDS: HYDROcodone/acetaminophen (*CRX) 5-325 MG TABLET 1 TAB PO (10:59)
--- NOTE | 2022-07-21 11:01 | IDPHARM ---
Subjective Pharmacy was consulted by Arash Lynn regarding infectious diseases for Delilah Ludwig. Delilah Ludwig is a 71 year old F with concerns regarding cellulitis. Background The patient is currently receiving Vancomycin, cefepime, metronidazole. The patient's PMH includes obesity, diabetes, and repeat episodes of this cellulitis around the pannus area. No leukocytosis noted and CrCl of 62 mL/min. No pseudomonal history noted in cultures Assessment/Recommendation/Discussion Spoke with provider, there is no diabetic wound / ulcer / foot infection. Noting that this is just cellulitis with no purulence noted, the patient likely does not need the DFU-based therapy with anti-pseudomonal and anaerobic coverage. Patient to be switched to ceftriaxone and vancomycin to continue polymicrobial coverage, but less broad. Provider to follow. Thank you for the interesting consult. Darvin Cuellar, PharmD Infectious Disease/Antimicrobial Stewardship Pharmacist 07/21/22; [id number]
[2022-07-21 11:25] LABS: Glucose Point of Care 200 mg/dl (65-105)
[2022-07-21] MEDS: DICLOFENAC SODIUM 1% 100 GM GEL (*BKC) 1 APPLIC TOPICAL ×3 (12:24→21:01)
[2022-07-21] MEDS: METOCLOPRAMIDE HCL INJ 10 MG/2 ML VIAL 5 MG IV PUSH ×3 (12:27→23:37)
[2022-07-21 16:00] VITALS: BP 128/76; PULSE 75; RESP 16; TEMP 36.8; O2SAT 96
[2022-07-21 16:48] LABS: Glucose Point of Care 180 mg/dl (65-105)
[2022-07-21] MEDS: rOPINIRole HCL 1 MG TABLET 4 MG PO (17:36)
[2022-07-21] MEDS: ALBUTEROL SULFATE (*SP) INHALER 2 PUFF INHALATION (17:38)
[2022-07-21 20:53] LABS: Glucose Point of Care 185 mg/dl (65-105)
[2022-07-22] VITALS: BP 141/66; PULSE 84; RESP 20; TEMP 35.7; O2SAT 96
[2022-07-22 05:47] VITALS: O2SAT 91
[2022-07-22] MEDS: METOCLOPRAMIDE HCL INJ 10 MG/2 ML VIAL 5 MG IV PUSH ×3 (06:09→17:02)
[2022-07-22] MEDS: ALBUTEROL SULFATE (*SP) INHALER 2 PUFF INHALATION ×2 (06:11→20:02)
[2022-07-22 07:43] LABS: Glucose Point of Care 148 mg/dl (65-105)
[2022-07-22 08:00] VITALS: BP 145/69; PULSE 76; TEMP 36.2; O2SAT 95
[2022-07-22] MEDS: MIRABEGRON 25 MG ER TABLET PO (09:17)
[2022-07-22] MEDS: POTASSIUM CHLORIDE 10 MEQ TABLET PO (09:17)
[2022-07-22] MEDS: lisinopriL 20 MG TABLET PO (09:17)
[2022-07-22] MEDS: SERTRALINE HCL 50 MG TABLET 100 MG PO (09:17)
[2022-07-22] MEDS: PANTOPRAZOLE 40 MG TABLET PO (09:18)
[2022-07-22] MEDS: FUROSEMIDE 20 MG TABLET PO (09:18)
[2022-07-22] MEDS: GABAPENTIN 300 MG CAPSULE PO ×3 (09:18→16:46)
[2022-07-22] MEDS: TOLNAFTATE 1% POWDER 45 GM BTL 1 APPLIC TOPICAL ×2 (09:18→21:34)
[2022-07-22] MEDS: allopurinoL 100 MG TABLET PO ×2 (09:18→16:46)
[2022-07-22] MEDS: ATORVASTATIN 40 MG TABLET 80 MG PO (09:18)
[2022-07-22] MEDS: DICLOFENAC SODIUM 1% 100 GM GEL (*BKC) 1 APPLIC TOPICAL ×3 (09:19→21:34)
[2022-07-22] MEDS: FLUTICASONE PROPIONATE 0.05% NA SPR 16 GM BTL (*BKC) 1 SPRAY NASAL (09:23)
[2022-07-22] MEDS: NAPHAZOLINE/PHENIRAM OP SOLN 15 ML BTL 1 DROP EACH EYE ×4 (09:30→21:35)
[2022-07-22 11:43] LABS: Glucose Point of Care 182 mg/dl (65-105)
[2022-07-22 11:47] LABS: Vancomycin Trough 28.2 ug/mL (10.0-15.0)
--- NOTE | 2022-07-22 12:16 | WPDPN ---
Progress Note: A&P Assessment and Plan (1) UTI (urinary tract infection): Code(s): N39.0 - Urinary tract infection, site not specified Status: Acute Assessment and Plan: patient UA indicates blood leukocytes and bacteria contniue cefepime WBCs within normal limits patient afebrile (2) Morbid obesity: Code(s): E66.01 - Morbid (severe) obesity due to excess calories Status: Acute (3) Hiatal hernia: Code(s): K44.9 - Diaphragmatic hernia without obstruction or gangrene Status: Acute Assessment and Plan: imaging indicates Large hiatal hernia with organoaxial positioning of the herniated portions of stomach, commonly asymptomatic. per ER doctor he spoke with an outside surgeon who determined that it was not an emergent situation and surgery is not needed at this time , the hernia was not causing an obstruction (4) Depression: Code(s): F32.A - Depression, unspecified Status: Acute Assessment and Plan: continue home medication A (5) Diabetes: Code(s): E11.9 - Type 2 diabetes mellitus without complications Status: Acute Assessment and Plan: a1c 6.7 blood sugars below 200 continue home medication along with Accu-Chek sliding scale and hypoglycemic protocol (6) COPD (chronic obstructive pulmonary disease): Qualifiers: COPD type: COPD with acute lower respiratory infection Qualified Code(s): J44.0 - Chronic obstructive pulmonary disease with (acute) lower respiratory infection Code(s): J44.9 - Chronic obstructive pulmonary disease, unspecified Status: Acute Assessment and Plan: stable continue home medication (7) Renal failure (ARF), acute on chronic: Qualifiers: Acute renal failure type: unspecified Chronic kidney disease stage: unspecified stage Qualified Code(s): N17.9 - Acute kidney failure, unspecified; N18.9 - Chronic kidney disease, unspecified Code(s): N17.9 - Acute kidney failure, unspecified; N18.9 - Chronic kidney disease, unspecified Status: Acute Assessment and Plan: BUN 15 creatinine 1.17 GR after 46, patient is at baseline will renal dose medication avoid nephrotoxic agents (8) CHF (congestive heart failure): Qualifiers: Heart failure chronicity: unspecified Heart failure type: unspecified Qualified Code(s): I50.9 - Heart failure, unspecified Code(s): I50.9 - Heart failure, unspecified Status: Acute Assessment and Plan: compensated continue Lasix daily weights review (9) Type 2 diabetes mellitus treated with insulin: Code(s): E11.9 - Type 2 diabetes mellitus without complications; Z79.4 - [facility] (current) use of insulin Status: Acute (10) Iron deficiency anemia: Qualifiers: Iron deficiency anemia type: unspecified iron deficiency Qualified Code(s): D50.9 - Iron deficiency anemia, unspecified Code(s): D50.9 - Iron deficiency anemia, unspecified Status: Acute (11) Diabetic polyneuropathy: Code(s): E11.42 - Type 2 diabetes mellitus with diabetic polyneuropathy Status: Acute Assessment and Plan: continue gabapentin (12) Essential (primary) hypertension: Code(s): I10 - Essential (primary) hypertension Status: Acute Assessment and Plan: stable continue home medications vital signs is ordered will adjust medication as needed (13) Hyperlipidemia: Code(s): E78.5 - Hyperlipidemia, unspecified Status: Acute Assessment and Plan: continue statins (14) Weakness: Code(s): R53.1 - Weakness Status: Acute (15) CIRILO (obstructive sleep apnea): Code(s): G47.33 - Obstructive sleep apnea (adult) (pediatric) Status: Acute (16) Lung nodule: Code(s): R91.1 - Solitary pulmonary nodule Status: Acute Assessment and Plan: imaging indicates Multiple sub
[2022-07-22 15:20] VITALS: BP 138/75; PULSE 92; RESP 20; TEMP 36.9; O2SAT 88
[2022-07-22 15:22] VITALS: O2SAT 92
[2022-07-22 16:30] LABS: Glucose Point of Care 164 mg/dl (65-105)
[2022-07-22] MEDS: rOPINIRole HCL 1 MG TABLET 4 MG PO (17:02)
[2022-07-22] MEDS: traZODone HCL 50 MG TABLET PO (21:34)
[2022-07-22 21:38] LABS: Glucose Point of Care 140 mg/dl (65-105)
[2022-07-23] VITALS: BP 142/61; PULSE 83; RESP 18; TEMP 36.3; O2SAT 91
[2022-07-23] MEDS: METOCLOPRAMIDE HCL INJ 10 MG/2 ML VIAL 5 MG IV PUSH ×5 (00:20→23:10)
[2022-07-23 05:20] LABS: Estimated CRCL calculation 58 ml/min; Estimated Glomerular Filt Rate 42
[2022-07-23 05:31] VITALS: O2SAT 94
[2022-07-23] MEDS: ALBUTEROL SULFATE (*SP) INHALER 2 PUFF INHALATION ×2 (06:47→18:05)
[2022-07-23 07:55] LABS: Glucose Point of Care 226 mg/dl (65-105)
[2022-07-23 08:00] VITALS: BP 142/80; PULSE 90; TEMP 36.2; O2SAT 96
[2022-07-23] MEDS: PROCHLORPERAZINE EDISYLATE 10 MG/2 ML VIAL IV PUSH (08:07)
--- NOTE | 2022-07-23 08:21 | P.PN_ITS ---
Progress Note: A&P Assessment and Plan (1) UTI (urinary tract infection): Code(s): N39.0 - Urinary tract infection, site not specified Status: Acute Assessment and Plan: * patient UA indicates blood leukocytes and bacteria * contniue cefepime * WBCs within normal limits patient afebrile (2) Morbid obesity: Code(s): E66.01 - Morbid (severe) obesity due to excess calories Status: Acute (3) Hiatal hernia: Code(s): K44.9 - Diaphragmatic hernia without obstruction or gangrene Status: Acute Assessment and Plan: * imaging indicates Large hiatal hernia with organoaxial positioning of the herniated portions of stomach, commonly asymptomatic. * per ER doctor he spoke with an outside surgeon who determined that it was not an emergent situation and surgery is not needed at this time , the hernia was not causing an obstruction * (4) Depression: Code(s): F32.A - Depression, unspecified Status: Acute Assessment and Plan: * continue home medication * A (5) Diabetes: Code(s): E11.9 - Type 2 diabetes mellitus without complications Status: Acute Assessment and Plan: * a1c 6.7 blood sugars below 200 * continue home medication along with Accu-Chek sliding scale and hypoglycemic protocol (6) COPD (chronic obstructive pulmonary disease): Qualifiers: COPD type: COPD with acute lower respiratory infection Qualified Code(s): J44.0 - Chronic obstructive pulmonary disease with (acute) lower respiratory infection Code(s): J44.9 - Chronic obstructive pulmonary disease, unspecified Status: Acute Assessment and Plan: * stable * continue home medication (7) Renal failure (ARF), acute on chronic: Qualifiers: Acute renal failure type: unspecified Chronic kidney disease stage: unspecified stage Qualified Code(s): N17.9 - Acute kidney failure, unspecified; N18.9 - Chronic kidney disease, unspecified Code(s): N17.9 - Acute kidney failure, unspecified; N18.9 - Chronic kidney disease, unspecified Status: Acute Assessment and Plan: * BUN 15 creatinine 1.17 GR after 46, patient is at baseline * will renal dose medication * avoid nephrotoxic agents (8) CHF (congestive heart failure): Qualifiers: Heart failure chronicity: unspecified Heart failure type: unspecified Qualified Code(s): I50.9 - Heart failure, unspecified Code(s): I50.9 - Heart failure, unspecified Status: Acute Assessment and Plan: * compensated * continue Lasix * daily weights review (9) Type 2 diabetes mellitus treated with insulin: Code(s): E11.9 - Type 2 diabetes mellitus without complications; Z79.4 - [employer] (current) use of insulin Status: Acute (10) Iron deficiency anemia: Qualifiers: Iron deficiency anemia type: unspecified iron deficiency Qualified Code(s): D50.9 - Iron deficiency anemia, unspecified Code(s): D50.9 - Iron deficiency anemia, unspecified Status: Acute (11) Diabetic polyneuropathy: Code(s): E11.42 - Type 2 diabetes mellitus with diabetic polyneuropathy Status: Acute Assessment and Plan: * continue gabapentin (12) Essential (primary) hypertension: Code(s): I10 - Essential (primary) hypertension Status: Acute Assessment and Plan: * stable * continue home medications * vital signs is ordered * will adjust medication as needed (13) Hyperlipidemia: Code(s): E78.5 - Hyperlipi
[2022-07-23] MEDS: TOLNAFTATE 1% POWDER 45 GM BTL 1 APPLIC TOPICAL ×2 (09:00→20:27)
[2022-07-23] MEDS: POTASSIUM CHLORIDE 10 MEQ TABLET PO (09:30)
[2022-07-23] MEDS: SERTRALINE HCL 50 MG TABLET 100 MG PO (09:30)
[2022-07-23] MEDS: allopurinoL 100 MG TABLET PO ×2 (09:30→16:32)
[2022-07-23] MEDS: NAPHAZOLINE/PHENIRAM OP SOLN 15 ML BTL 1 DROP EACH EYE ×4 (09:30→20:26)
[2022-07-23] MEDS: GABAPENTIN 300 MG CAPSULE PO ×3 (09:30→16:32)
[2022-07-23] MEDS: ATORVASTATIN 40 MG TABLET 80 MG PO (09:30)
[2022-07-23] MEDS: MIRABEGRON 25 MG ER TABLET PO (09:30)
[2022-07-23] MEDS: PANTOPRAZOLE 40 MG TABLET PO (09:30)
[2022-07-23] MEDS: lisinopriL 20 MG TABLET PO (09:30)
[2022-07-23] MEDS: FLUTICASONE PROPIONATE 0.05% NA SPR 16 GM BTL (*BKC) 1 SPRAY NASAL (09:30)
[2022-07-23] MEDS: DICLOFENAC SODIUM 1% 100 GM GEL (*BKC) 1 APPLIC TOPICAL ×4 (09:30→20:26)
[2022-07-23] MEDS: FUROSEMIDE 20 MG TABLET PO (09:30)
[2022-07-23 12:09] LABS: Glucose Point of Care 171 mg/dl (65-105)
[2022-07-23 15:22] VITALS: BP 148/81; PULSE 93; RESP 18; TEMP 36.4; O2SAT 94
[2022-07-23 16:32] LABS: Glucose Point of Care 216 mg/dl (65-105)
[2022-07-23] MEDS: rOPINIRole HCL 1 MG TABLET 4 MG PO (17:11)
[2022-07-23 19:55] VITALS: PULSE 93; RESP 18; O2SAT 94
[2022-07-23] MEDS: traZODone HCL 50 MG TABLET PO (20:27)
[2022-07-23 20:31] LABS: Glucose Point of Care 231 mg/dl (65-105)
[2022-07-23 23:55] VITALS: BP 141/62; PULSE 102; RESP 16; TEMP 36.7; O2SAT 94
[2022-07-24] MEDS: ALBUTEROL SULFATE (*SP) INHALER 2 PUFF INHALATION ×2 (05:33→18:20)
[2022-07-24] MEDS: METOCLOPRAMIDE HCL INJ 10 MG/2 ML VIAL 5 MG IV PUSH ×3 (05:33→18:20)
[2022-07-24 05:41] VITALS: O2SAT 93
[2022-07-24 07:54] LABS: Glucose Point of Care 164 mg/dl (65-105)
[2022-07-24 08:00] VITALS: BP 139/63; PULSE 76; RESP 16; TEMP 36.3; O2SAT 95
[2022-07-24] MEDS: TOLNAFTATE 1% POWDER 45 GM BTL 1 APPLIC TOPICAL ×2 (09:00→22:45)
[2022-07-24] MEDS: DICLOFENAC SODIUM 1% 100 GM GEL (*BKC) 1 APPLIC TOPICAL ×4 (09:13→22:45)
[2022-07-24] MEDS: MIRABEGRON 25 MG ER TABLET PO (09:13)
[2022-07-24] MEDS: NAPHAZOLINE/PHENIRAM OP SOLN 15 ML BTL 1 DROP EACH EYE ×4 (09:13→22:42)
[2022-07-24] MEDS: FLUTICASONE PROPIONATE 0.05% NA SPR 16 GM BTL (*BKC) 1 SPRAY NASAL (09:13)
[2022-07-24] MEDS: PANTOPRAZOLE 40 MG TABLET PO (09:13)
[2022-07-24] MEDS: ATORVASTATIN 40 MG TABLET 80 MG PO (09:14)
[2022-07-24] MEDS: GABAPENTIN 300 MG CAPSULE PO ×3 (09:14→16:32)
[2022-07-24] MEDS: lisinopriL 20 MG TABLET PO (09:14)
[2022-07-24] MEDS: FUROSEMIDE 20 MG TABLET PO (09:14)
[2022-07-24] MEDS: allopurinoL 100 MG TABLET PO ×2 (09:14→16:31)
[2022-07-24] MEDS: POTASSIUM CHLORIDE 10 MEQ TABLET PO (09:15)
[2022-07-24] MEDS: SERTRALINE HCL 50 MG TABLET 100 MG PO (09:15)
[2022-07-24 11:58] LABS: Glucose Point of Care 182 mg/dl (65-105)
[2022-07-24 15:52] VITALS: BP 128/54; PULSE 94; RESP 18; TEMP 36.4; O2SAT 93
[2022-07-24 16:32] LABS: Glucose Point of Care 168 mg/dl (65-105)
[2022-07-24] MEDS: rOPINIRole HCL 1 MG TABLET 4 MG PO (22:42)
[2022-07-24 23:36] LABS: Vancomycin Trough 21.3 ug/mL (10.0-15.0)
[2022-07-25] VITALS: BP 133/72; PULSE 82; RESP 20; TEMP 36.1; O2SAT 93
[2022-07-25] MEDS: METOCLOPRAMIDE HCL INJ 10 MG/2 ML VIAL 5 MG IV PUSH ×4 (00:30→17:51)
[2022-07-25 05:43] VITALS: O2SAT 94
[2022-07-25 05:45] LABS: Estimated CRCL calculation 62 ml/min; Estimated Glomerular Filt Rate 46
[2022-07-25] MEDS: ALBUTEROL SULFATE (*SP) INHALER 2 PUFF INHALATION ×2 (06:31→18:36)
[2022-07-25 08:00] VITALS: BP 130/66; PULSE 89; RESP 18; TEMP 36.3; O2SAT 96
[2022-07-25 08:01] LABS: Glucose Point of Care 163 mg/dl (65-105)
[2022-07-25] MEDS: SERTRALINE HCL 50 MG TABLET 100 MG PO (09:39)
[2022-07-25] MEDS: PANTOPRAZOLE 40 MG TABLET PO (09:40)
[2022-07-25] MEDS: DICLOFENAC SODIUM 1% 100 GM GEL (*BKC) 1 APPLIC TOPICAL ×4 (09:40→20:43)
[2022-07-25] MEDS: GABAPENTIN 300 MG CAPSULE PO ×3 (09:40→16:50)
[2022-07-25] MEDS: FUROSEMIDE 20 MG TABLET PO (09:40)
[2022-07-25] MEDS: MIRABEGRON 25 MG ER TABLET PO (09:40)
[2022-07-25] MEDS: POTASSIUM CHLORIDE 10 MEQ TABLET PO (09:40)
[2022-07-25] MEDS: allopurinoL 100 MG TABLET PO ×2 (09:40→16:50)
[2022-07-25] MEDS: ATORVASTATIN 40 MG TABLET 80 MG PO (09:40)
[2022-07-25] MEDS: lisinopriL 20 MG TABLET PO (09:40)
[2022-07-25] MEDS: NAPHAZOLINE/PHENIRAM OP SOLN 15 ML BTL 1 DROP EACH EYE ×4 (09:41→20:43)
[2022-07-25] MEDS: TOLNAFTATE 1% POWDER 45 GM BTL 1 APPLIC TOPICAL ×2 (09:41→20:42)
[2022-07-25] MEDS: FLUTICASONE PROPIONATE 0.05% NA SPR 16 GM BTL (*BKC) 1 SPRAY NASAL (09:41)
[2022-07-25 12:03] LABS: Glucose Point of Care 157 mg/dl (65-105)
[2022-07-25 14:02] LABS: Vancomycin Trough 15.6 ug/mL (10.0-15.0)
[2022-07-25 15:42] VITALS: BP 126/59; PULSE 86; RESP 20; TEMP 36.5; O2SAT 94
[2022-07-25 16:33] LABS: Glucose Point of Care 180 mg/dl (65-105)
[2022-07-25 20:00] VITALS: PULSE 86; RESP 20; O2SAT 94
[2022-07-25] MEDS: rOPINIRole HCL 1 MG TABLET 4 MG PO (20:43)
[2022-07-25] MEDS: traZODone HCL 50 MG TABLET PO (20:43)
[2022-07-25 20:47] LABS: Glucose Point of Care 194 mg/dl (65-105)
[2022-07-26] VITALS: BP 127/51; PULSE 96; RESP 18; TEMP 36.6; O2SAT 94
[2022-07-26] MEDS: METOCLOPRAMIDE HCL INJ 10 MG/2 ML VIAL 5 MG IV PUSH ×2 (00:48→05:34)
[2022-07-26] MEDS: ALBUTEROL SULFATE (*SP) INHALER 2 PUFF INHALATION ×2 (05:34→18:21)
[2022-07-26 05:45] VITALS: O2SAT 94
[2022-07-26 07:57] LABS: Glucose Point of Care 182 mg/dl (65-105)
[2022-07-26 08:00] VITALS: BP 119/58; PULSE 77; RESP 18; TEMP 36.4; O2SAT 91
[2022-07-26] MEDS: ATORVASTATIN 40 MG TABLET 80 MG PO (08:57)
[2022-07-26] MEDS: GABAPENTIN 300 MG CAPSULE PO ×3 (08:57→16:49)
[2022-07-26] MEDS: MIRABEGRON 25 MG ER TABLET PO (08:57)
[2022-07-26] MEDS: SERTRALINE HCL 50 MG TABLET 100 MG PO (08:57)
[2022-07-26] MEDS: FUROSEMIDE 20 MG TABLET PO (08:58)
[2022-07-26] MEDS: lisinopriL 20 MG TABLET PO (08:58)
[2022-07-26] MEDS: allopurinoL 100 MG TABLET PO ×2 (08:58→16:49)
[2022-07-26] MEDS: POTASSIUM CHLORIDE 10 MEQ TABLET PO (08:58)
[2022-07-26] MEDS: PANTOPRAZOLE 40 MG TABLET PO (08:58)
[2022-07-26] MEDS: FLUTICASONE PROPIONATE 0.05% NA SPR 16 GM BTL (*BKC) 1 SPRAY NASAL (08:59)
[2022-07-26] MEDS: DICLOFENAC SODIUM 1% 100 GM GEL (*BKC) 1 APPLIC TOPICAL ×4 (09:00→20:47)
[2022-07-26] MEDS: TOLNAFTATE 1% POWDER 45 GM BTL 1 APPLIC TOPICAL ×2 (09:00→20:47)
[2022-07-26] MEDS: NAPHAZOLINE/PHENIRAM OP SOLN 15 ML BTL 1 DROP EACH EYE ×4 (09:00→20:47)
--- NOTE | 2022-07-26 09:17 | P.PN_ITS ---
Progress Note: A&P Assessment and Plan (1) UTI (urinary tract infection): Code(s): N39.0 - Urinary tract infection, site not specified Status: Acute Assessment and Plan: * patient UA indicates blood leukocytes and bacteria * contniue cefepime * WBCs within normal limits patient afebrile * Pt placed on Keflex for cellulitis and vancomycin DCD * labd obtained today (2) Morbid obesity: Code(s): E66.01 - Morbid (severe) obesity due to excess calories Status: Acute (3) Hiatal hernia: Code(s): K44.9 - Diaphragmatic hernia without obstruction or gangrene Status: Acute Assessment and Plan: * imaging indicates Large hiatal hernia with organoaxial positioning of the herniated portions of stomach, commonly asymptomatic. * per ER doctor he spoke with an outside surgeon who determined that it was not an emergent situation and surgery is not needed at this time , the hernia was not causing an obstruction * (4) Depression: Code(s): F32.A - Depression, unspecified Status: Acute Assessment and Plan: * continue home medication * A (5) Diabetes: Code(s): E11.9 - Type 2 diabetes mellitus without complications Status: Acute Assessment and Plan: * a1c 6.7 blood sugars below 200 * continue home medication along with Accu-Chek sliding scale and hypoglycemic protocol (6) COPD (chronic obstructive pulmonary disease): Qualifiers: COPD type: COPD with acute lower respiratory infection Qualified Code(s): J44.0 - Chronic obstructive pulmonary disease with (acute) lower respiratory infection Code(s): J44.9 - Chronic obstructive pulmonary disease, unspecified Status: Acute Assessment and Plan: * stable * continue home medication (7) Renal failure (ARF), acute on chronic: Qualifiers: Acute renal failure type: unspecified Chronic kidney disease stage: unspecified stage Qualified Code(s): N17.9 - Acute kidney failure, unspecified; N18.9 - Chronic kidney disease, unspecified Code(s): N17.9 - Acute kidney failure, unspecified; N18.9 - Chronic kidney disease, unspecified Status: Acute Assessment and Plan: * BUN 15 creatinine 1.17 GR after 46, patient is at baseline * will renal dose medication * avoid nephrotoxic agents (8) CHF (congestive heart failure): Qualifiers: Heart failure chronicity: unspecified Heart failure type: unspecified Qualified Code(s): I50.9 - Heart failure, unspecified Code(s): I50.9 - Heart failure, unspecified Status: Acute Assessment and Plan: * compensated * continue Lasix * daily weights review (9) Type 2 diabetes mellitus treated with insulin: Code(s): E11.9 - Type 2 diabetes mellitus without complications; Z79.4 - [employer] (current) use of insulin Status: Acute (10) Iron deficiency anemia: Qualifiers: Iron deficiency anemia type: unspecified iron deficiency Qualified Code(s): D50.9 - Iron deficiency anemia, unspecified Code(s): D50.9 - Iron deficiency anemia, unspecified Status: Acute (11) Diabetic polyneuropathy: Code(s): E11.42 - Type 2 diabetes mellitus with diabetic polyneuropathy Status: Acute Assessment and Plan: * continue gabapentin (12) Essential (primary) hypertension: Code(s): I10 - Essential (primary) hypertension Status: Acute Assessment and Plan: * stable * continue home medications * vital signs is ordered * will adjust
--- NOTE | 2022-07-26 09:17 | WPDPN ---
Progress Note: A&P Assessment and Plan (1) UTI (urinary tract infection): Code(s): N39.0 - Urinary tract infection, site not specified Status: Acute Assessment and Plan: patient UA indicates blood leukocytes and bacteria contniue cefepime WBCs within normal limits patient afebrile Pt placed on Keflex for cellulitis and vancomycin DCD labd obtained today (2) Morbid obesity: Code(s): E66.01 - Morbid (severe) obesity due to excess calories Status: Acute (3) Hiatal hernia: Code(s): K44.9 - Diaphragmatic hernia without obstruction or gangrene Status: Acute Assessment and Plan: imaging indicates Large hiatal hernia with organoaxial positioning of the herniated portions of stomach, commonly asymptomatic. per ER doctor he spoke with an outside surgeon who determined that it was not an emergent situation and surgery is not needed at this time , the hernia was not causing an obstruction (4) Depression: Code(s): F32.A - Depression, unspecified Status: Acute Assessment and Plan: continue home medication A (5) Diabetes: Code(s): E11.9 - Type 2 diabetes mellitus without complications Status: Acute Assessment and Plan: a1c 6.7 blood sugars below 200 continue home medication along with Accu-Chek sliding scale and hypoglycemic protocol (6) COPD (chronic obstructive pulmonary disease): Qualifiers: COPD type: COPD with acute lower respiratory infection Qualified Code(s): J44.0 - Chronic obstructive pulmonary disease with (acute) lower respiratory infection Code(s): J44.9 - Chronic obstructive pulmonary disease, unspecified Status: Acute Assessment and Plan: stable continue home medication (7) Renal failure (ARF), acute on chronic: Qualifiers: Acute renal failure type: unspecified Chronic kidney disease stage: unspecified stage Qualified Code(s): N17.9 - Acute kidney failure, unspecified; N18.9 - Chronic kidney disease, unspecified Code(s): N17.9 - Acute kidney failure, unspecified; N18.9 - Chronic kidney disease, unspecified Status: Acute Assessment and Plan: BUN 15 creatinine 1.17 GR after 46, patient is at baseline will renal dose medication avoid nephrotoxic agents (8) CHF (congestive heart failure): Qualifiers: Heart failure chronicity: unspecified Heart failure type: unspecified Qualified Code(s): I50.9 - Heart failure, unspecified Code(s): I50.9 - Heart failure, unspecified Status: Acute Assessment and Plan: compensated continue Lasix daily weights review (9) Type 2 diabetes mellitus treated with insulin: Code(s): E11.9 - Type 2 diabetes mellitus without complications; Z79.4 - half-way (current) use of insulin Status: Acute (10) Iron deficiency anemia: Qualifiers: Iron deficiency anemia type: unspecified iron deficiency Qualified Code(s): D50.9 - Iron deficiency anemia, unspecified Code(s): D50.9 - Iron deficiency anemia, unspecified Status: Acute (11) Diabetic polyneuropathy: Code(s): E11.42 - Type 2 diabetes mellitus with diabetic polyneuropathy Status: Acute Assessment and Plan: continue gabapentin (12) Essential (primary) hypertension: Code(s): I10 - Essential (primary) hypertension Status: Acute Assessment and Plan: stable continue home medications vital signs is ordered will adjust medication as needed (13) Hyperlipidemia: Code(s): E78.5 - Hyperlipidemia, unspecified Status: Acute Assessment and Plan: continue statins (14) Weakness: Code(s): R53.1 - Weakness Status: Acute (15) CIRILO (obstructive sleep apnea): Code(s): G47.33 - Obstructive sleep apnea (adult) (pediatric) Status: Acute (16) Lung nodule: Code(s): R91.1 - Solitary pulmonary nodule
[2022-07-26 09:34] LABS: Basophils Absolute Auto 0.06 K/mm3 (0.00-0.10); Eosinophils Absolute Auto 0.02 K/mm3 (0.02-0.50); Eosinophils Percent Auto 0.3 % (1.0-6.0); Hematocrit 40.9 % (35.0-42.0); Hemoglobin 11.9 g/dL (11.7-13.8); Immature Granulocyte Absolute 0.03 K/mm3 (0.00-0.00); Immature Granulocyte Percent A 0.5 % (0.0-0.0); Lymphocytes Absolute Auto 0.65 K/mm3 (1.10-4.50); Lymphocytes Percent Auto 11.2 % (18.0-42.0); Mean Corpuscular HGB Conc 29.1 g/dL (32.0-36.0); Mean Corpuscular Hemoglobin 26.7 pg (27.0-31.0); Mean Corpuscular Volume 91.9 fL (78.0-102.0); Monocytes Absolute Auto 0.49 K/mm3 (0.10-0.90); Monocytes Percent Auto 8.4 % (2.0-11.0); Neutrophils Absolute Auto 4.6 K/mm3 (1.7-7.2); Neutrophils Percent Auto 78.6 % (50.0-70.0); Platelet Count Result 162 K/mm3 (150-420); Red Blood Count 4.45 M/mm3 (4.20-5.40); Red Cell Distribution Width 13.6 % (11.6-14.4); White Blood Count 5.8 K/mm3 (4.8-10.8)
[2022-07-26 09:40] LABS: Anion Gap 4 mmol/L (8-16); Blood Urea Nitrogen 27 mg/dL (7-18); Calcium 8.4 mg/dL (8.5-10.1); Carbon Dioxide 39 mmol/L (21-32); Chloride 99 mmol/L (98-108); Estimated CRCL calculation 58 ml/min; Estimated Glomerular Filt Rate 42; Glucose 232 mg/dL (70-99); Osmolality Calculated 306 mOsm/kg (285-295); Potassium 4.6 mmol/L (3.5-5.1); Sodium 142 mmol/L (136-145)
[2022-07-26 11:55] LABS: Glucose Point of Care 174 mg/dl (65-105)
[2022-07-26 16:00] VITALS: BP 128/68; PULSE 78; RESP 18; TEMP 36.6; O2SAT 94
[2022-07-26 16:53] LABS: Glucose Point of Care 127 mg/dl (65-105)
[2022-07-26 20:00] VITALS: PULSE 78; RESP 18; O2SAT 94
[2022-07-26] MEDS: CEPHALEXIN 500 MG CAPSULE PO (20:47)
[2022-07-26] MEDS: traZODone HCL 50 MG TABLET PO (20:47)
[2022-07-26] MEDS: rOPINIRole HCL 1 MG TABLET 4 MG PO (20:47)
[2022-07-26 20:52] LABS: Glucose Point of Care 178 mg/dl (65-105)
[2022-07-27] VITALS: BP 125/46; PULSE 91; RESP 17; TEMP 36.4; O2SAT 94
[2022-07-27 05:15] LABS: Estimated CRCL calculation 62 ml/min; Estimated Glomerular Filt Rate 46
[2022-07-27] MEDS: ALBUTEROL SULFATE (*SP) INHALER 2 PUFF INHALATION (05:40)
[2022-07-27 07:40] LABS: Glucose Point of Care 149 mg/dl (65-105)
[2022-07-27 08:00] VITALS: BP 114/58; PULSE 78; PULSE 89; RESP 18; TEMP 36.6; O2SAT 94
[2022-07-27] MEDS: CEPHALEXIN 500 MG CAPSULE PO (08:42)
[2022-07-27] MEDS: FUROSEMIDE 20 MG TABLET PO (08:42)
[2022-07-27] MEDS: MIRABEGRON 25 MG ER TABLET PO (08:42)
[2022-07-27] MEDS: ATORVASTATIN 40 MG TABLET 80 MG PO (08:42)
[2022-07-27] MEDS: PANTOPRAZOLE 40 MG TABLET PO (08:43)
[2022-07-27] MEDS: GABAPENTIN 300 MG CAPSULE PO ×2 (08:43→12:40)
[2022-07-27] MEDS: SERTRALINE HCL 50 MG TABLET 100 MG PO (08:44)
[2022-07-27] MEDS: POTASSIUM CHLORIDE 10 MEQ TABLET PO (08:44)
[2022-07-27] MEDS: lisinopriL 20 MG TABLET PO (08:44)
[2022-07-27] MEDS: FLUTICASONE PROPIONATE 0.05% NA SPR 16 GM BTL (*BKC) 1 SPRAY NASAL (08:45)
[2022-07-27] MEDS: NAPHAZOLINE/PHENIRAM OP SOLN 15 ML BTL 1 DROP EACH EYE ×2 (08:45→12:40)
[2022-07-27] MEDS: DICLOFENAC SODIUM 1% 100 GM GEL (*BKC) 1 APPLIC TOPICAL ×2 (08:45→12:40)
[2022-07-27] MEDS: allopurinoL 100 MG TABLET PO (08:45)
[2022-07-27] MEDS: TOLNAFTATE 1% POWDER 45 GM BTL 1 APPLIC TOPICAL (08:46)
[2022-07-27 11:50] LABS: Glucose Point of Care 156 mg/dl (65-105)
--- NOTE | 2022-07-27 12:40 | P.DS_ITS ---
DS: Admitting Diagnosis Discharge Date 07/27/2022 Admitting Diagnosis Cellulitis , UTI DS: Discharge Diagnosis Discharge Diagnosis (1) UTI (urinary tract infection): Code(s): N39.0 - Urinary tract infection, site not specified Status: Acute Assessment and Plan: * patient UA indicates blood leukocytes and bacteria * contniue cefepime * WBCs within normal limits patient afebrile * Pt placed on Keflex for cellulitis and vancomycin DCD * labs obtained today (2) Morbid obesity: Code(s): E66.01 - Morbid (severe) obesity due to excess calories Status: Acute Assessment and Plan: healthy diet Exercise (3) Hiatal hernia: Code(s): K44.9 - Diaphragmatic hernia without obstruction or gangrene Status: Acute Assessment and Plan: * imaging indicates Large hiatal hernia with organoaxial positioning of the herniated portions of stomach, commonly asymptomatic. * per ER doctor he spoke with an outside surgeon who determined that it was not an emergent situation and surgery is not needed at this time , the hernia was not causing an obstruction * (4) Depression: Code(s): F32.A - Depression, unspecified Status: Acute Assessment and Plan: * continue home medication * A (5) Diabetes: Code(s): E11.9 - Type 2 diabetes mellitus without complications Status: Acute Assessment and Plan: * a1c 6.7 blood sugars below 200 * continue home medication along with Accu-Chek sliding scale and hypoglycemic protocol (6) COPD (chronic obstructive pulmonary disease): Qualifiers: COPD type: COPD with acute lower respiratory infection Qualified Code(s): J44.0 - Chronic obstructive pulmonary disease with (acute) lower respiratory infection Code(s): J44.9 - Chronic obstructive pulmonary disease, unspecified Status: Acute Assessment and Plan: * stable * continue home medication (7) Renal failure (ARF), acute on chronic: Qualifiers: Acute renal failure type: unspecified Chronic kidney disease stage: unspecified stage Qualified Code(s): N17.9 - Acute kidney failure, unspecified; N18.9 - Chronic kidney disease, unspecified Code(s): N17.9 - Acute kidney failure, unspecified; N18.9 - Chronic kidney disease, unspecified Status: Acute Assessment and Plan: * BUN 15 creatinine 1.17 GR after 46, patient is at baseline * will renal dose medication * avoid nephrotoxic agents (8) CHF (congestive heart failure): Qualifiers: Heart failure chronicity: unspecified Heart failure type: unspecified Qualified Code(s): I50.9 - Heart failure, unspecified Code(s): I50.9 - Heart failure, unspecified Status: Acute Assessment and Plan: * compensated * continue Lasix * daily weights review (9) Type 2 diabetes mellitus treated with insulin: Code(s): E11.9 - Type 2 diabetes mellitus without complications; Z79.4 - halfway (current) use of insulin Status: Acute (10) Iron deficiency anemia: Qualifiers: Iron deficiency anemia type: unspecified iron deficiency Qualified Code(s): D50.9 - Iron deficiency anemia, unspecified Code(s): D50.9 - Iron deficiency anemia, unspecified Status: Acute (11) Diabetic polyneuropathy: Code(s): E11.42 - Type 2 diabetes mellitus with diabetic polyneuropathy Status: Acute Assessment and Plan: * continue gabapentin (12) Essential (primary) hypertension: Code(s):
--- NOTE | 2022-07-27 12:40 | PM.DS ---
DS: Admitting Diagnosis Discharge Date 07/27/2022 Admitting Diagnosis Cellulitis , UTI DS: Discharge Diagnosis Discharge Diagnosis (1) UTI (urinary tract infection): Code(s): N39.0 - Urinary tract infection, site not specified Status: Acute Assessment and Plan: patient UA indicates blood leukocytes and bacteria contniue cefepime WBCs within normal limits patient afebrile Pt placed on Keflex for cellulitis and vancomycin DCD labs obtained today (2) Morbid obesity: Code(s): E66.01 - Morbid (severe) obesity due to excess calories Status: Acute Assessment and Plan: healthy diet Exercise (3) Hiatal hernia: Code(s): K44.9 - Diaphragmatic hernia without obstruction or gangrene Status: Acute Assessment and Plan: imaging indicates Large hiatal hernia with organoaxial positioning of the herniated portions of stomach, commonly asymptomatic. per ER doctor he spoke with an outside surgeon who determined that it was not an emergent situation and surgery is not needed at this time , the hernia was not causing an obstruction (4) Depression: Code(s): F32.A - Depression, unspecified Status: Acute Assessment and Plan: continue home medication A (5) Diabetes: Code(s): E11.9 - Type 2 diabetes mellitus without complications Status: Acute Assessment and Plan: a1c 6.7 blood sugars below 200 continue home medication along with Accu-Chek sliding scale and hypoglycemic protocol (6) COPD (chronic obstructive pulmonary disease): Qualifiers: COPD type: COPD with acute lower respiratory infection Qualified Code(s): J44.0 - Chronic obstructive pulmonary disease with (acute) lower respiratory infection Code(s): J44.9 - Chronic obstructive pulmonary disease, unspecified Status: Acute Assessment and Plan: stable continue home medication (7) Renal failure (ARF), acute on chronic: Qualifiers: Acute renal failure type: unspecified Chronic kidney disease stage: unspecified stage Qualified Code(s): N17.9 - Acute kidney failure, unspecified; N18.9 - Chronic kidney disease, unspecified Code(s): N17.9 - Acute kidney failure, unspecified; N18.9 - Chronic kidney disease, unspecified Status: Acute Assessment and Plan: BUN 15 creatinine 1.17 GR after 46, patient is at baseline will renal dose medication avoid nephrotoxic agents (8) CHF (congestive heart failure): Qualifiers: Heart failure chronicity: unspecified Heart failure type: unspecified Qualified Code(s): I50.9 - Heart failure, unspecified Code(s): I50.9 - Heart failure, unspecified Status: Acute Assessment and Plan: compensated continue Lasix daily weights review (9) Type 2 diabetes mellitus treated with insulin: Code(s): E11.9 - Type 2 diabetes mellitus without complications; Z79.4 - senior living (current) use of insulin Status: Acute (10) Iron deficiency anemia: Qualifiers: Iron deficiency anemia type: unspecified iron deficiency Qualified Code(s): D50.9 - Iron deficiency anemia, unspecified Code(s): D50.9 - Iron deficiency anemia, unspecified Status: Acute (11) Diabetic polyneuropathy: Code(s): E11.42 - Type 2 diabetes mellitus with diabetic polyneuropathy Status: Acute Assessment and Plan: continue gabapentin (12) Essential (primary) hypertension: Code(s): I10 - Essential (primary) hypertension Status: Acute Assessment and Plan: stable continue home medications vital signs is ordered will adjust medication as needed (13) Hyperlipidemia: Code(s): E78.5 - Hyperlipidemia, unspecified Status: Acute Assessment and Plan: continue statins (14) Weakness: Code(s): R53.1 - Weakness Status: Acute (15) CIRILO (obstructive sleep apnea): Co
[2022-07-27 13:15] VITALS: O2SAT 94
--- NOTE | 2022-07-27 13:52 | PC.NURSE ---
Urinary catheter removed with difficulty. Discharge information reviewed with patient. Report called Meeta at [facility] in [place]. New order for keflex faxed to facility. Patient transported to [facility] with assist of 4. Transported by [facility] service
--- NOTE | 2022-07-28 14:35 | PC.NURSE ---
NH nurse states they received and understood the discharge instructions.
== END 2022-07-27 13:45 ==
LOC: CHSED 20:41 → CHS2ND 21:54
PROVIDERS: Nurse Practitioner; Nurse Practitioner Family; Admitting Provider Internal Medicine; Emergency Provider Emergency Medicine; PCP Family Medicine; Visit Provider Internal Medicine
DX: N39.0 Urinary tract infection, site not specified (principal); N17.9 Acute kidney failure, unspecified; I13.0 Hypertensive heart and chronic kidney disease with heart failure and stage 1 through stage 4 chronic kidney disease, or unspecified chronic kidney disease; N18.30 Chronic kidney disease, stage 3 unspecified; I50.9 Heart failure, unspecified; E11.22 Type 2 diabetes mellitus with diabetic chronic kidney disease; E11.42 Type 2 diabetes mellitus with diabetic polyneuropathy; L03.90 Cellulitis, unspecified; J44.9 Chronic obstructive pulmonary disease, unspecified; K57.30 Diverticulosis of large intestine without perforation or abscess without bleeding; K44.9 Diaphragmatic hernia without obstruction or gangrene; K58.9 Irritable bowel syndrome, unspecified; E78.5 Hyperlipidemia, unspecified; N32.81 Overactive bladder; I89.0 Lymphedema, not elsewhere classified; E66.01 Morbid (severe) obesity due to excess calories; D50.9 Iron deficiency anemia, unspecified; R13.10 Dysphagia, unspecified; M15.9 Polyosteoarthritis, unspecified; M54.50 Low back pain, unspecified; G89.29 Other chronic pain; G25.81 Restless legs syndrome; G47.33 Obstructive sleep apnea (adult) (pediatric); F41.0 Panic disorder [episodic paroxysmal anxiety]; F32.A Depression, unspecified; F41.9 Anxiety disorder, unspecified; Z79.4 Long term (current) use of insulin; Z99.3 Dependence on wheelchair; Z68.44 Body mass index [BMI] 60.0-69.9, adult; R91.1 Solitary pulmonary nodule; N28.9 Disorder of kidney and ureter, unspecified; E04.1 Nontoxic single thyroid nodule
CPT/HCPCS: 36415; 36600; 71250; 74176; 80048; 80053; 80202; 81001; 82565; 82805; 82948; 83036; 83605; 83735; 84484; 85025; 85027; 87086; 93005; 96365; 96366; 96367; 96375; 96376; 97161; 97165; 99285; A9270; G0378; J0692; J0696; J0780; J1815; J1940; J2765; J3370

== ENCOUNTER 2022-12-30 11:35 | Inpatient (IN) | payer MEDICARE, MEDICAID, SELFPAY ==
[2022-12-30] VITALS (14 sets, daily range): BP systolic 86–120; BP diastolic 45–71; PULSE 91–116; RESP 20–24; TEMP 36.6–37.3; O2SAT 85–99; BMI 60.5
--- NOTE | ~2022-12-30 | XR_ITS ---
Portable chest x-ray Comparison: 01/03/2023 Clinical History: Cough Findings: Lungs are clear, without focal consolidation or pleural effusion. Cardiomediastinal silho uette is stable. Bones and soft tissues are unremarkable. Impression: Clear lungs. Reviewed, dictated and finalized at location . Impression: Clear lungs.
--- NOTE | ~2022-12-30 | XR_ITS ---
EXAMINATION: XR chest 2V DATE: 12/30/2022 12:29 INDICATION: Shortness of breath. Cough. TECHNIQUE: Frontal and lateral views of the chest were obtained. COMPARISON: Chest 2 views views 09/25/2019, chest CT 07/20/2022 FINDINGS: There is mild atelectasis in right lower lung zone. No pleural effusion or pneumothorax. Th e heart size is normal. There is a moderate-sized hiatal hernia. IMPRESSION: 1. Mild atelectasis in right lower lung zone. 2. Moderate-sized hiatal hernia. Reviewed, dictated and finalized at location A.
--- NOTE | ~2022-12-30 | XR_ITS ---
EXAMINATION: XR chest 1V portable DATE: 01/03/2023 10:42 INDICATION: Shortness of breath. TECHNIQUE: A single frontal view of the chest was obtained. COMPARISON: Chest 2 views 12/30/2022, chest CT 12/30/2022 FINDINGS: There are airspace opacities in right lower lung zone. No pleural effusion or pneumothorax. The heart size is normal. There is a moderate-sized hiatal hernia. IMPRESSION: 1. Stable airspace opacities in right lower lung zone, likely atelectasis. 2. Moderate-sized hiatal hernia. Reviewed, dictated and finalized at location A.
--- NOTE | ~2022-12-30 | CT_ITS ---
EXAMINATION: CTA chest PE protocol DATE: 12/30/2022 14:49 INDICATION: Cough. TECHNIQUE: Computed tomography angiography (CTA) of the chest was performed with 100 mL Omnipaque-350 intravenous contrast timed to evaluate the pulmonary arteries. Coronal maximum intensity projection 3D-reconstructions were created by the technologist. Automated exposure control and iterative reconst ruction technique were employed. The dose-length product was 900.02 mGy-cm. COMPARISON: Chest CT 07/20/2022 FINDINGS: There is mild atelectasis bilaterally. Tracheobronchomalacia is noted. There is mucous plug ging bilaterally. No pleural effusion. The heart size is normal. No pericardial effusion. There is no pulmonary embolus. There is a moderate-sized sliding hiatal hernia. There is severe lower thoracic s pondylosis. IMPRESSION: 1. No pulmonary embolus. 2. Tracheobronchomalacia. Bilateral mucous plugging and mild bilateral atelectasis. 3. Moderate-sized sliding hiatal hernia. Reviewed, dictated and finalized at location A. IMPRESSION: 1. No pulmonary embolus. 2. Tracheobronchomalacia. Bilateral mucous plugging and mild bilateral atelecta sis. 3. Moderate-sized sliding hiatal hernia.
--- NOTE | ~2022-12-30 | US_ITS ---
EXAMINATION: US renal BI DATE: 01/04/2023 09:39 INDICATION: Acute on chronic renal disease TECHNIQUE: Multiple ultrasound grayscale images of the kidneys were obtained. COMPARISON: CT dated 07/20/2022 FINDINGS: The right kidney measures 10.9 x 5.1 x 6.3 cm. The left kidney measures 10.4 x 6.4 x 5.6 cm. The kidn eys demonstrate normal echogenicity. 3.5 cm anechoic cyst at the mid left kidney. Indeterminate exoph ytic lesion at the posterior mid left kidney identified on prior CT is not visualized on the current study but portion of the kidney are obscured by rib shadowing. There is no hydronephrosis in either k idney. No stones identified. The bladder is normal. IMPRESSION: 1. No hydronephrosis in either kidney. 2. 3.5 cm left renal cyst. A previous noted 2.4 cm indeterminate lesion identified at the left kidney on prior CT is not identified on the provided images. Portions of the left kidney are however obscur ed by rib shadowing. If this lesion has not been worked up in the interval would recommend further ev aluation with pre and postcontrast MRI or CT. Reviewed, dictated and finalized at location A. IMPRESSION: 1. No hydronephrosis in either kidney. 2. 3.5 cm left renal cyst. A previous noted 2.4 cm indeterminate lesion identif ied at the left kidney on prior CT is not identified on the provided images. Po rtions of the left kidney are however obscured by rib shadowing. If this lesion has not been worked up in the interval would recommend further evaluation with pre and postcontrast MRI or CT.
--- NOTE | 2022-12-30 11:42 | ECG_ITS ---
Measurements Intervals [place] Rate: 106 P: ME: 0 QRS: -1 QRSD: 107 T: 46 QT: 316 QTc: 421 Interpretive Statements SINUS TACHYCARDIA ATRIAL PREMATURE COMPLEXES BASELINE ARTIFACT- I, II, AVR ABNORMAL ECG COMPARED TO ECG 07/20/2022 13:53:18 SINUS TACHYCARDIA NOW PRESENT Electronically Signed On 12-30-2022 11:47:48 CDT by Dario Dudley D.O.
[2022-12-30 11:55] LABS: Basophils Percent Auto 0.1 % (0.2-1.2); Eosinophils Percent Auto 0.1 % (0-4.4); Hematocrit 33.8 % (37.0-47.0); Hemoglobin 11.2 g/dL (12.0-15.0); Immature Granulocyte Absolute 0.14 K/mm3 (0.00-0.031); Lymphocytes Absolute Auto 0.83 K/mm3 (0.9-3.2); Lymphocytes Percent Auto 6.2 % (18.3-44.2); Mean Corpuscular HGB Conc 33.1 g/dl (32-36); Mean Corpuscular Hemoglobin 29.5 pg (26-34); Mean Corpuscular Volume 88.9 fl (80-100); Mean Platelet Volume 10.5 fl (7.4-10.4); Monocytes Absolute Auto 1.5 K/mm3 (0.1-0.6); Monocytes Percent Auto 11.2 % (2.6-8.5); Neutrophils Absolute Auto 10.9 K/mm3 (1.3-6.7); Neutrophils Percent Auto 81.4 % (45.5-73.1); Platelet Count Result 184 k/mm3 (150-375); White Blood Count 13.4 K/mm3 (4.5-10.0)
[2022-12-30 12:13] LABS: Alanine Aminotransferase 13 U/L (6-35); Albumin Level 3.5 g/dL (3.5-5.1); Alkaline Phosphatase 79 U/L (38-126); Anion Gap 4 mmol/L (8-16); Aspartate Amino Transferase 21 U/L (14-36); Blood Urea Nitrogen 41 mg/dL (7-17); Calcium 8.1 mg/dL (8.4-10.2); Carbon Dioxide 28 mmol/L (22-30); Chloride 92 mmol/L (98-107); Estimated CRCL calculation 45 ml/min; Estimated Glomerular Filt Rate 34; Glucose 175 mg/dL (65-110); Potassium 4.5 mmol/L (3.4-5.0); Sodium 124 mmol/L (137-145)
[2022-12-30] MEDS: LEVALBUTEROL NEB 1.25 MG/3 ML 5 MG INHALATION (12:42)
[2022-12-30] MEDS: IPRATROPIUM BR 0.02% INH SOLN 0.5 MG/2.5 ML VIAL 1 MG INHALATION (12:42)
[2022-12-30] MEDS: LACTATED RINGERS 500 ML 999 ML IV CONT (13:08)
--- NOTE | 2022-12-30 15:04 | PM.IMHP ---
H&P: HPI History of Present Illness Date/Time: 12/30/22 15:04 Chief Complaint: Cough Narrative: This is a 72-year-old female patient who resides and entered the [facility]. The patient is wheelchair-bound. The patient has a history of COPD and congestive heart failure. The patient tells me that she does chronically wear oxygen at 2 L per nasal cannula. The patient stated that she is coughing up green sputum. She denies any fever chills. She denies any excessive swelling in her legs. She stated that she has been using her nebulizer machine twice a day. She stated that she is recovering from COVID and had COVID approximately week ago. She denies having any steroids at that time. She recovered from COVID without any medication. Her white count 13.4. H&H 11.2 and 33.8. Sodium is 124. Chloride 92. The patient denies any decrease in oral intake her BUN is 41 creatinine 1.5. Six months ago her creatinine was 1.16. However it has been up to 2.1 in the past. Her blood sugars 175 and states that is average for her. Chest x-ray was read as mild atelectasis in right lower lung zones. Moderate size hiatal hernia .1. No pulmonary embolus. 2. Tracheobronchomalacia. Bilateral mucous plugging and mild bilateral atelectasis. 3. Moderate-sized sliding hiatal hernia. The patient was given nebulizer treatments and started on IV antibiotics. She is currently on the 2 L per nasal cannula that she typically wears at the facility the patient is being admitted to observation status on the date of service of 12/30/2022. Review of Systems Review of Systems: All systems reviewed & are unremarkable except as noted in HPI and below Constitutional: Constitutional: Reports as per HPI and Reports no additional constitutional complaints Eyes: Eyes: Reports as per HPI and Reports no additional eye complaints ENT: Reports system reviewed and no additional complaints, except as documented and Reports Normal hearing present Cardiovascular: Cardiovascular: Reports no additional cardiovascular complaints Respiratory: Respiratory: Reports no additional respiratory complaints and Reports no additional respiratory complaints Gastrointestinal: Gastrointestinal: Reports as per HPI and Reports no additional gastrointestinal complaints Musculoskeletal: Musculoskeletal: Reports no additional musculoskeletal complaints Integumentary/Breasts: Skin/Breast: Reports system reviewed and no additional complaints, except as docu and Reports as per HPI Neurologic: Reports system reviewed and no additional complaints, except as documented, Reports as per HPI and Reports Normal hearing present Psychiatric: Psychiatric: Reports no additional psychiatric complaints and Reports as per HPI Endocrine: Endocrine: Reports no additional endocrine complaints Hematologic/Lymphatic: Hematologic/Lymphatic: Reports no additional hematologic/lymphatic complaints Allergic/Immunologic: Allergic/Immunologic: Reports no additional allergic/immunologic complaints [facility] Past Medical History Medical History (Updated 12/30/22 @ 18:00 by Autumn Stevens NP) Candidiasis, intertrigo CHF (congestive heart failure) Chronic kidney disease, stage III (moderate) Chronic midline low back pain Chronic pain CKD (chronic kidney disease), stage III COPD (chronic obstructive pulmonary disease) Degenerative joint disease Depression Depression with anxiety With history of panic attacks Diabetes Diabetic polyneuropathy Diverticulosis Dysphagia Essential (primary) hypertension Hiatal hernia Small hiatal hernia noted on barium swallow performed due to dysphagia and sensation of globus. Of the mid distal esophagus, repeated mid distal esophageal reflux Hyperlipidemia Irritable bowel syndrome Left hand pain Left shoulder pain Lymphedema of both lower extremities Morbid obesity with BMI of 60.0-69.9, adult CIRILO (obstructive sleep apnea) Osteoarthritis Overactive bladder With chronic urinary
[2022-12-30] MEDS: LACTATED RINGERS 1,000 ML 999 ML IV CONT (17:57)
--- NOTE | 2022-12-30 18:06 | ADMGEN ---
This patient, Delilah Ludwig, was admitted to Medical Room 246-01. Patient/family oriented to hospital policies and general routines including ID bracelet, bed and alarms, visiting hours, pain management, procedures, bathroom and other care routines, personal items, smoking policy, room service/diet, and visiting hours. Information on how to activate the Rapid Response Team has been discussed. Patient/Family are encouraged to report perceived risks to care and to ask questions if they do not understand what they are told or what they should do.
[2022-12-30 18:51] LABS: Glucose Point of Care 146 mg/dl (65-105)
--- NOTE | 2022-12-30 19:16 | ED.SOB ---
HPI - SOB/Dyspnea General Chief Complaint: Shortness of Breath/Dyspnea Stated Complaint: symptomatic post covid + test Time Seen by Provider: 12/30/22 11:58 History of Present Illness HPI Narrative: Patient with recent diagnosis of COVID, presenting because she has been having increasing cough and shortness of breath, she also has poor appetite has not been eating much. Related Data Home Medications Medication Instructions Recorded Confirmed albuterol sulfate 90 mcg/actuation 2 puff inhalation BID PRN 12/30/22 12/30/22 aerosol inhaler Shortness Of Breath allopurinol 100 mg tablet 100 mg PO BID 12/30/22 12/30/22 apixaban 2.5 mg tablet (Eliquis) 2.5 mg PO BID 12/30/22 12/30/22 atorvastatin 80 mg tablet 80 mg PO DAILY 12/30/22 12/30/22 azelastine 0.05 % eye drops 1 drp ophthalmic (eye) BID 12/30/22 12/30/22 benzonatate 200 mg capsule 200 mg PO TID 12/30/22 12/30/22 buspirone 7.5 mg tablet 7.5 mg PO BID 12/30/22 12/30/22 fluticasone propionate 50 1 spray intranasal DAILY 12/30/22 12/30/22 mcg/actuation nasal spray,suspension gabapentin 300 mg capsule 300 mg PO TID 12/30/22 12/30/22 insulin glargine 100 unit/mL 28 unit subcut DAILY 12/30/22 12/30/22 subcutaneous solution insulin glargine 100 unit/mL 42 unit subcut HS 12/30/22 12/30/22 subcutaneous solution ipratropium bromide 0.02 % 3 ml continuous nebulization QID 12/30/22 12/30/22 solution for inhalation lisinopril 20 mg tablet 20 mg PO DAILY 12/30/22 12/30/22 loratadine 10 mg tablet (Claritin) 10 mg PO DAILY 12/30/22 12/30/22 mirabegron 25 mg tablet,extended 25 mg PO DAILY 12/30/22 12/30/22 release 24 hr (Myrbetriq) omeprazole 20 mg capsule,delayed 20 mg PO DAILY 12/30/22 12/30/22 release potassium chloride 10 mEq 10 meq PO DAILY 12/30/22 12/30/22 tablet,extended release ropinirole 2 mg tablet 4 mg PO HS 12/30/22 12/30/22 sertraline 100 mg tablet 100 mg PO DAILY 12/30/22 12/30/22 Allergies Allergy/AdvReac Type Severity Reaction Status Date / Time NSAIDS (Non-Steroidal Allergy Unknown Other Verified 07/07/22 07:05 Anti-Inflamma Review of Systems Review of Systems: CONST: chills HEENT: No sore throat C/V: No chest pain RESP: Cough, shortness of breath GI: poor appetite : No dysuria. M/S: No joint pain. SKIN: No rash. NEURO: [No headache or focal numbness or weakness] PSYCH: [No depression] [facility] Past Medical History Medical History (Updated 12/30/22 @ 19:20 by Renetta Kam MD) Candidiasis, intertrigo CHF (congestive heart failure) Chronic kidney disease, stage III (moderate) Chronic midline low back pain Chronic pain CKD (chronic kidney disease), stage III COPD (chronic obstructive pulmonary disease) Degenerative joint disease Depression Depression with anxiety With history of panic attacks Diabetes Diabetic polyneuropathy Diverticulosis Dysphagia Essential (primary) hypertension Hiatal hernia Small hiatal hernia noted on barium swallow performed due to dysphagia and sensation of globus. Of the mid distal esophagus, repeated mid distal esophageal reflux Hyperlipidemia Irritable bowel syndrome Left hand pain Left shoulder pain Lymphedema of both lower extremities Morbid obesity with BMI of 60.0-69.9, adult CIRILO (obstructive sleep apnea) Osteoarthritis Overactive bladder With chronic urinary incontinence Beal catheter placed in the ER Panic disorder [episodic paroxysmal anxiety] Polyarthritis of multiple sites Postmenopausal Restless leg syndrome Spondylosis Type 2 diabetes mellitus treated with insulin Surgical History Surgical History (Updated 12/30/22 @ 17:43 by Autumn Stevens NP) History of colonoscopy with polypectomy Family History Family History Sibling , Sister Cancer Psychiatric illness Father Cancer Mother Cancer Son Cancer Social History Social History (Updated 12/30/22 @ 17:44 by Autumn Obrien
[2022-12-30 19:21] LABS: Anion Gap 6 mmol/L (8-16); Blood Urea Nitrogen 41 mg/dL (7-17); Calcium 8.3 mg/dL (8.4-10.2); Carbon Dioxide 28 mmol/L (22-30); Chloride 92 mmol/L (98-107); Estimated CRCL calculation 42 ml/min; Estimated Glomerular Filt Rate 32; Glucose 144 mg/dL (65-110); Potassium 4.3 mmol/L (3.4-5.0); Sodium 126 mmol/L (137-145)
[2022-12-30 20:26] LABS: Appearance Urine Clear (Clear); Bilirubin Urine Negative (Negative); Blood Urine Negative (Negative); Color Urine Yellow (Yellow); Glucose Urine UA Negative (Negative); Ketones Urine Negative (Negative); Leukocyte Esterase Ur 2+ LEU/UL (NEGATIVE); Nitrate Urine Negative (Negative); Protein Urine Trace mg/dL (Negative); Specific Grav Ur <= 1.005 (1.001-1.035); Urobilinogen Urine 0.2 mg/dL (<2.0); pH Urine 5.5 (5.0-9.0)
[2022-12-30 20:33] LABS: Glucose Point of Care 141 mg/dl (65-105)
[2022-12-30 20:37] LABS: Add Urine Microscopic? YES
[2022-12-30 20:38] LABS: RBC Urine 0-2 /hpf (0-2)
[2022-12-30 20:39] LABS: Squamous Epithelial Cell Urine Few /hpf (Few); WBC Urine 21-30 /hpf (0-3)
[2022-12-30 20:40] LABS: Bacteria Urine Trace /hpf
[2022-12-30] MEDS: INSULIN GLARGINE (*BKC) 100 UNITS/ML 42 UNITS SUB-Q (20:43)
[2022-12-30] MEDS: rOPINIRole HCL 1 MG TABLET 4 MG PO (20:44)
[2022-12-30] MEDS: IPRATROPIUM BR 0.02% INH SOLN 0.5 MG/2.5 ML VIAL INHALATION (21:40)
[2022-12-30] MEDS: LEVALBUTEROL NEB 1.25 MG/3 ML INHALATION (21:41)
[2022-12-30 23:48] LABS: Anion Gap 5 mmol/L (8-16); Blood Urea Nitrogen 41 mg/dL (7-17); Carbon Dioxide 28 mmol/L (22-30); Chloride 91 mmol/L (98-107); Estimated CRCL calculation 42 ml/min; Estimated Glomerular Filt Rate 32; Glucose 174 mg/dL (65-110); Potassium 4.4 mmol/L (3.4-5.0); Sodium 124 mmol/L (137-145)
[2022-12-31] VITALS (21 sets, daily range): BP systolic 110–118; BP diastolic 56–82; PULSE 80–102; RESP 15–20; TEMP 35.9–37.1; O2SAT 92–99
[2022-12-31] MEDS: LEVALBUTEROL NEB 1.25 MG/3 ML INHALATION ×4 (02:15→20:13)
[2022-12-31] MEDS: IPRATROPIUM BR 0.02% INH SOLN 0.5 MG/2.5 ML VIAL INHALATION ×4 (02:15→20:13)
[2022-12-31 05:57] LABS: Basophils Percent Auto 0.2 % (0.2-1.2); Eosinophils Absolute Auto 0.1 K/mm3 (0-0.3); Eosinophils Percent Auto 0.5 % (0-4.4); Hematocrit 33.2 % (37.0-47.0); Hemoglobin 10.6 g/dL (12.0-15.0); Immature Granulocyte Percent A 0.7 % (0-0.5); Lymphocytes Absolute Auto 0.76 K/mm3 (0.9-3.2); Lymphocytes Percent Auto 5.5 % (18.3-44.2); Mean Corpuscular HGB Conc 31.9 g/dl (32-36); Mean Corpuscular Hemoglobin 29.4 pg (26-34); Mean Platelet Volume 10.6 fl (7.4-10.4); Monocytes Absolute Auto 1.4 K/mm3 (0.1-0.6); Monocytes Percent Auto 9.8 % (2.6-8.5); Neutrophils Absolute Auto 11.4 K/mm3 (1.3-6.7); Neutrophils Percent Auto 83.3 % (45.5-73.1); Platelet Count Result 195 k/mm3 (150-375); Red Blood Count 3.61 M/mm3 (4.2-5.4); Red Cell Distribution Width 14.1 % (11.5-14.5); White Blood Count 13.7 K/mm3 (4.5-10.0)
[2022-12-31 06:00] LABS: Lactic Acid Reflex 0.7 mmol/L (0.7-2.0)
[2022-12-31 06:09] LABS: Alanine Aminotransferase 12 U/L (6-35); Albumin Level 3.4 g/dL (3.5-5.1); Alkaline Phosphatase 70 U/L (38-126); Anion Gap 3 mmol/L (8-16); Aspartate Amino Transferase 20 U/L (14-36); Bilirubin,Total 0.7 mg/dL (0.2-1.3); Blood Urea Nitrogen 43 mg/dL (7-17); Calcium 8.5 mg/dL (8.4-10.2); Carbon Dioxide 32 mmol/L (22-30); Chloride 92 mmol/L (98-107); Estimated CRCL calculation 40 ml/min; Estimated Glomerular Filt Rate 30; Glucose 136 mg/dL (65-110); Magnesium 1.4 mg/dL (1.6-2.3); Potassium 4.6 mmol/L (3.4-5.0); Sodium 127 mmol/L (137-145)
[2022-12-31 07:03] LABS: Hemoglobin A1C 7.7 % (<5.7)
[2022-12-31] MEDS: BENZONATATE 100 MG CAPSULE 200 MG PO ×3 (08:02→16:17)
[2022-12-31] MEDS: busPIRone HCL 5 MG TABLET PO ×2 (08:03→16:16)
[2022-12-31] MEDS: FUROSEMIDE 20 MG TABLET PO (08:03)
[2022-12-31] MEDS: ATORVASTATIN 40 MG TABLET 80 MG PO (08:03)
[2022-12-31] MEDS: allopurinoL 100 MG TABLET PO ×2 (08:03→20:36)
[2022-12-31] MEDS: PANTOPRAZOLE 40 MG TABLET PO (08:03)
[2022-12-31] MEDS: GABAPENTIN 300 MG CAPSULE PO ×3 (08:03→16:16)
[2022-12-31] MEDS: busPIRone HCL 2.5 MG TABLET PO ×2 (08:03→16:16)
[2022-12-31] MEDS: APIXABAN 2.5 MG TABLET PO ×2 (08:03→20:36)
[2022-12-31] MEDS: SERTRALINE HCL 50 MG TABLET 100 MG PO (08:03)
[2022-12-31] MEDS: TOLNAFTATE 1% POWDER 45 GM BTL 1 APPLIC TOPICAL ×2 (08:04→20:36)
[2022-12-31] MEDS: MIRABEGRON 25 MG ER TABLET PO (08:04)
[2022-12-31] MEDS: FLUTICASONE PROPIONATE 0.05% NA SPR 16 GM BTL (*BKC) 1 SPRAY NASAL (08:05)
[2022-12-31] MEDS: INSULIN GLARGINE (*BKC) 100 UNITS/ML 28 UNITS SUB-Q (08:16)
[2022-12-31 08:57] LABS: Glucose Point of Care 125 mg/dl (65-105)
[2022-12-31] MEDS: POTASSIUM CHLORIDE 10 MEQ TABLET.ER PO (08:58)
[2022-12-31] MEDS: MAGNESIUM SULF 4 GM/WATER100ML 4 GM/100 ML BAG IVPB (08:58)
[2022-12-31 09:17] LABS: NT Pro B Type Natriuretic Pept 1020 pg/mL (19.9-100)
[2022-12-31 12:13] LABS: Glucose Point of Care 159 mg/dl (65-105)
--- NOTE | 2022-12-31 13:15 | PM.IMPN ---
Progress Note: A&P Assessment and Plan (1) Severe sepsis: Code(s): A41.9 - Sepsis, unspecified organism; R65.20 - Severe sepsis without septic shock Status: Acute Assessment and Plan: SIRS criteria met with leukocytosis of 13.4, tachycardia with heart rate of 116, tachypnea with RR being 22-24 Meets severe sepsis with hypotension, acute on chronic respiratory failure with SPO2 of 85% and INR of 1.5 source of infection respiratory in nature Lactic acid 0.7 Blood cultures pending Sputum culture pending LR given in the ED cautious hydration with Chronic CHF IV antibiotic started in ED and continued with azithromycin and Ceftriaxone Await culture results Adjust therapy with culture findings trend labs (2) Acute and chronic respiratory failure: Qualifiers: Respiratory failure complication: hypoxia Qualified Code(s): J96.21 - Acute and chronic respiratory failure with hypoxia Code(s): J96.20 - Acute and chronic respiratory failure, unspecified whether with hypoxia or hypercapnia Status: Acute Assessment and Plan: Presented to the ED with complaints of worsening shortness of breath chronically on oxygen at 2 L per nasal cannula at home, however was noted to be sating 85% Chest CTA shows mucous plugging, atelectasis, and Tracheobronchomalacia Could be secondary to PNA or COPD Just recently recovered from COVID Continue neb treatments add Pulmozyme nebs to help with mucous plugging sputum culture pending wean oxygen to maintain saturation >90% (3) Pneumonia: Qualifiers: Laterality: bilateral Lung location: unspecified part of lung Pneumonia type: due to unspecified organism Qualified Code(s): J18.9 - Pneumonia, unspecified organism Code(s): J18.9 - Pneumonia, unspecified organism Status: Acute Assessment and Plan: Presented to the ED with complaints of increased shortness of breath, increased green sputum production Chronically on 2LNC Chest xray shows atelectasis CTA shows bilateral mucous plugging and atelectasis Continue supplemental oxygen, wean to maintain saturations >90% Continue ceftriaxone and azithromycin day 2 Trend respiratory status Sputum culture collected, await results Continue breathing treatments Adjust antibiotics to culture results trend labs WBC elevated and continues to rise at 13.7 (4) Chronic kidney disease, stage III (moderate): Qualifiers: Chronic kidney disease stage 3 subtype: stage 3b (GFR 30-44) Qualified Code(s): N18.32 - Chronic kidney disease, stage 3b Code(s): N18.30 - Chronic kidney disease, stage 3 unspecified Status: Acute Assessment and Plan: BUN/Creatinine elevated, currently 43/1.70 Baseline creatinine is 1.1-1.50 Avoid nephrotoxic medications continue to trend labs consider urine labs if continues to rise trend urine output (5) Acute hyponatremia: Code(s): E87.1 - Hypo-osmolality and hyponatremia Status: Acute Assessment and Plan: Na 124 at time of arrival Currently Na is 127 Raise by 6-8 per Q24H Most likely related to home medications Could be related to CHF Continue to trend consider fluids Most likely would need sodium tabs Consider nephro if continues to decline (6) CIRILO (obstructive sleep apnea): Code(s): G47.33 - Obstructive sleep apnea (adult) (pediatric) Status: Acute Assessment and Plan: Continue with cpap at home settings. Respiratory to manage (7) Hyperlipidemia: Qualifiers: Hyperlipidemia type: mixed hyperlipidemia Qualified Code(s): E78.2 - Mixed hyperlipidemia Code(s): E78.5 - Hyperlipidemia, unspecified Status: Acute Assessment and Plan: Continue with Lipitor LFTs stable (8) Essential (primary) hypertension: Code(s): I1
--- NOTE | 2022-12-31 13:15 | P.PNIM_ITS ---
Progress Note: A&P Assessment and Plan (1) Severe sepsis: Code(s): A41.9 - Sepsis, unspecified organism; R65.20 - Severe sepsis without septic shock Status: Acute Assessment and Plan: * SIRS criteria met with leukocytosis of 13.4, tachycardia with heart rate of 116, tachypnea with RR being 22-24 * Meets severe sepsis with hypotension, acute on chronic respiratory failure with SPO2 of 85% and INR of 1.5 * source of infection respiratory in nature * Lactic acid 0.7 * Blood cultures pending * Sputum culture pending * LR given in the ED * cautious hydration with Chronic CHF * IV antibiotic started in ED and continued with azithromycin and Ceftriaxone * Await culture results * Adjust therapy with culture findings * trend labs (2) Acute and chronic respiratory failure: Qualifiers: Respiratory failure complication: hypoxia Qualified Code(s): J96.21 - Acute and chronic respiratory failure with hypoxia Code(s): J96.20 - Acute and chronic respiratory failure, unspecified whether with hypoxia or hypercapnia Status: Acute Assessment and Plan: * Presented to the ED with complaints of worsening shortness of breath * chronically on oxygen at 2 L per nasal cannula at home, however was noted to be sating 85% * Chest CTA shows mucous plugging, atelectasis, and Tracheobronchomalacia * Could be secondary to PNA or COPD * Just recently recovered from COVID * Continue neb treatments * add Pulmozyme nebs to help with mucous plugging * sputum culture pending * wean oxygen to maintain saturation >90% (3) Pneumonia: Qualifiers: Laterality: bilateral Lung location: unspecified part of lung Pneumonia type: due to unspecified organism Qualified Code(s): J18.9 - Pneumonia, unspecified organism Code(s): J18.9 - Pneumonia, unspecified organism Status: Acute Assessment and Plan: * Presented to the ED with complaints of increased shortness of breath, increased green sputum production * Chronically on 2LNC * Chest xray shows atelectasis * CTA shows bilateral mucous plugging and atelectasis * Continue supplemental oxygen, wean to maintain saturations >90% * Continue ceftriaxone and azithromycin day 2 * Trend respiratory status * Sputum culture collected, await results * Continue breathing treatments * Adjust antibiotics to culture results * trend labs * WBC elevated and continues to rise at 13.7 (4) Chronic kidney disease, stage III (moderate): Qualifiers: Chronic kidney disease stage 3 subtype: stage 3b (GFR 30-44) Qualified Code(s): N18.32 - Chronic kidney disease, stage 3b Code(s): N18.30 - Chronic kidney disease, stage 3 unspecified Status: Acute Assessment and Plan: * BUN/Creatinine elevated, currently 43/1.70 * Baseline creatinine is 1.1-1.50 * Avoid nephrotoxic medications * continue to trend labs * consider urine labs if continues to rise * trend urine output (5) Acute hyponatremia: Code(s): E87.1 - Hypo-osmolality and hyponatremia Status: Acute Assessment and Plan: * Na 124 at time of arrival * Currently Na is 127 * Raise by 6-8 per Q24H * Most likely related to home medications * Could be related to CHF * Continue to trend * consider fluids * Most likely would need sodium tabs * Consider nephro if continues to decline (6) CIRILO (obstructive sleep apnea):
[2022-12-31 17:53] LABS: Glucose Point of Care 162 mg/dl (65-105)
[2022-12-31] MEDS: DORNASE ALFA INH SOLN 1 MG/ML 2.5 ML AMP 2.5 MG INHALATION (20:21)
[2022-12-31] MEDS: INSULIN GLARGINE (*BKC) 100 UNITS/ML 42 UNITS SUB-Q (20:36)
[2022-12-31] MEDS: rOPINIRole HCL 1 MG TABLET 4 MG PO (20:36)
[2022-12-31 20:47] LABS: Glucose Point of Care 165 mg/dl (65-105)
[2023-01-01] VITALS (19 sets, daily range): BP systolic 100–115; BP diastolic 46–84; PULSE 75–90; RESP 15–22; TEMP 36–36.7; O2SAT 90–96
[2023-01-01] MEDS: LEVALBUTEROL NEB 1.25 MG/3 ML INHALATION ×4 (02:53→21:20)
[2023-01-01] MEDS: IPRATROPIUM BR 0.02% INH SOLN 0.5 MG/2.5 ML VIAL INHALATION ×4 (02:53→21:20)
[2023-01-01 06:07] LABS: Basophils Percent Auto 0.3 % (0.2-1.2); Eosinophils Absolute Auto 0.2 K/mm3 (0-0.3); Eosinophils Percent Auto 1.9 % (0-4.4); Hematocrit 34.3 % (37.0-47.0); Immature Granulocyte Absolute 0.09 K/mm3 (0.00-0.031); Immature Granulocyte Percent A 0.8 % (0-0.5); Lymphocytes Absolute Auto 0.78 K/mm3 (0.9-3.2); Lymphocytes Percent Auto 6.6 % (18.3-44.2); Mean Corpuscular HGB Conc 32.1 g/dl (32-36); Mean Corpuscular Hemoglobin 29.3 pg (26-34); Mean Corpuscular Volume 91.5 fl (80-100); Mean Platelet Volume 10.1 fl (7.4-10.4); Monocytes Absolute Auto 1.1 K/mm3 (0.1-0.6); Monocytes Percent Auto 9.5 % (2.6-8.5); Neutrophils Absolute Auto 9.6 K/mm3 (1.3-6.7); Neutrophils Percent Auto 80.9 % (45.5-73.1); Platelet Count Result 248 k/mm3 (150-375); Red Blood Count 3.75 M/mm3 (4.2-5.4); Red Cell Distribution Width 14.2 % (11.5-14.5); White Blood Count 11.9 K/mm3 (4.5-10.0)
[2023-01-01 06:19] LABS: Alanine Aminotransferase 19 U/L (6-35); Albumin Level 3.5 g/dL (3.5-5.1); Alkaline Phosphatase 95 U/L (38-126); Anion Gap 6 mmol/L (8-16); Aspartate Amino Transferase 30 U/L (14-36); Bilirubin,Total 0.6 mg/dL (0.2-1.3); Blood Urea Nitrogen 48 mg/dL (7-17); Calcium 8.8 mg/dL (8.4-10.2); Carbon Dioxide 28 mmol/L (22-30); Chloride 91 mmol/L (98-107); Estimated CRCL calculation 32 ml/min; Estimated Glomerular Filt Rate 23; Glucose 147 mg/dL (65-110); Magnesium 2.4 mg/dL (1.6-2.3); Potassium 4.8 mmol/L (3.4-5.0); Sodium 125 mmol/L (137-145)
[2023-01-01] MEDS: FUROSEMIDE INJ 40 MG/4 ML VIAL IV PUSH (08:14)
[2023-01-01] MEDS: INSULIN GLARGINE (*BKC) 100 UNITS/ML 28 UNITS SUB-Q (08:14)
[2023-01-01] MEDS: BENZONATATE 100 MG CAPSULE 200 MG PO ×3 (08:14→16:52)
[2023-01-01 08:15] LABS: NT Pro B Type Natriuretic Pept 838 pg/mL (19.9-100)
[2023-01-01] MEDS: PANTOPRAZOLE 40 MG TABLET PO (08:15)
[2023-01-01] MEDS: APIXABAN 2.5 MG TABLET PO ×2 (08:15→20:30)
[2023-01-01] MEDS: POTASSIUM CHLORIDE 10 MEQ TABLET.ER PO (08:15)
[2023-01-01] MEDS: MIRABEGRON 25 MG ER TABLET PO (08:15)
[2023-01-01] MEDS: busPIRone HCL 2.5 MG TABLET PO ×2 (08:15→16:53)
[2023-01-01] MEDS: allopurinoL 100 MG TABLET PO ×2 (08:15→20:30)
[2023-01-01] MEDS: GABAPENTIN 300 MG CAPSULE PO ×3 (08:15→16:53)
[2023-01-01] MEDS: SERTRALINE HCL 50 MG TABLET 100 MG PO (08:16)
[2023-01-01] MEDS: busPIRone HCL 5 MG TABLET PO ×2 (08:16→16:53)
[2023-01-01] MEDS: ATORVASTATIN 40 MG TABLET 80 MG PO (08:16)
[2023-01-01] MEDS: FLUTICASONE PROPIONATE 0.05% NA SPR 16 GM BTL (*BKC) 1 SPRAY NASAL (08:16)
[2023-01-01] MEDS: TOLNAFTATE 1% POWDER 45 GM BTL 1 APPLIC TOPICAL ×2 (08:16→20:30)
[2023-01-01 08:20] LABS: Glucose Point of Care 143 mg/dl (65-105)
[2023-01-01] MEDS: DORNASE ALFA INH SOLN 1 MG/ML 2.5 ML AMP 2.5 MG INHALATION ×2 (09:02→21:20)
--- NOTE | 2023-01-01 10:15 | PM.IMPN ---
Progress Note: A&P Assessment and Plan (1) Severe sepsis: Code(s): A41.9 - Sepsis, unspecified organism; R65.20 - Severe sepsis without septic shock Status: Acute Assessment and Plan: SIRS criteria met with leukocytosis of 13.4, tachycardia with heart rate of 116, tachypnea with RR being 22-24 Meets severe sepsis with hypotension, acute on chronic respiratory failure with SPO2 of 85% and INR of 1.5 source of infection respiratory in nature Lactic acid 0.7 Blood cultures pending Sputum culture showed many white blood cells, mixed bacterial marie LR given in the ED cautious hydration with Chronic CHF IV antibiotic started in ED and continued with azithromycin and Ceftriaxone Await culture results Adjust therapy with culture findings trend labs (2) Acute and chronic respiratory failure: Qualifiers: Respiratory failure complication: hypoxia Qualified Code(s): J96.21 - Acute and chronic respiratory failure with hypoxia Code(s): J96.20 - Acute and chronic respiratory failure, unspecified whether with hypoxia or hypercapnia Status: Acute Assessment and Plan: Presented to the ED with complaints of worsening shortness of breath chronically on oxygen at 2 L per nasal cannula at home, however was noted to be sating 85% Continues to be tachypneic, temp is noted to be 96.8 Chest CTA shows mucous plugging, atelectasis, and Tracheobronchomalacia Could be secondary to PNA or COPD Just recently recovered from COVID Continue neb treatments add Pulmozyme nebs to help with mucous plugging sputum culture showed many white blood cells, mixed bacterial marie wean oxygen to maintain saturation >90% (3) Pneumonia: Qualifiers: Laterality: bilateral Lung location: unspecified part of lung Pneumonia type: due to unspecified organism Qualified Code(s): J18.9 - Pneumonia, unspecified organism Code(s): J18.9 - Pneumonia, unspecified organism Status: Acute Assessment and Plan: Presented to the ED with complaints of increased shortness of breath, increased green sputum production Chronically on 2LNC Chest xray shows atelectasis CTA shows bilateral mucous plugging and atelectasis Continue supplemental oxygen, wean to maintain saturations >90% Continue ceftriaxone and azithromycin day 3 Trend respiratory status Sputum culture collected, await results Continue breathing treatments Adjust antibiotics to culture results trend labs WBC trending down, currently at 11.9 (4) Chronic kidney disease, stage III (moderate): Qualifiers: Chronic kidney disease stage 3 subtype: stage 3b (GFR 30-44) Qualified Code(s): N18.32 - Chronic kidney disease, stage 3b Code(s): N18.30 - Chronic kidney disease, stage 3 unspecified Status: Acute Assessment and Plan: BUN/Creatinine elevated, currently 48/2.10 Baseline creatinine is 1.1-1.50 Avoid nephrotoxic medications continue to trend labs consider urine labs if continues to rise trend urine output Seems to be acute kidney failure at this time (5) Acute hyponatremia: Code(s): E87.1 - Hypo-osmolality and hyponatremia Status: Acute Assessment and Plan: Na 124 at time of arrival Currently Na is 125 Raise by 6-8 per Q24H Most likely related to home medications Could be related to CHF Continue to trend stop fluids at this point as it made renal function and sodium worse Most likely would need sodium tabs Consider nephro if continues to decline Urine studies Na 31, Urea 331, Creatinine 75.8, FEURea pre renal disease (6) CIRILO (obstructive sleep apnea): Code(s): G47.33 - Obstructive sleep apnea (adult) (pediatric) Status: Acute Assessment and Plan: Continue with cpap at home settings. Respiratory to manage (7) Hyperlipidemia: Qualifiers:
--- NOTE | 2023-01-01 10:15 | P.PNIM_ITS ---
Progress Note: A&P Assessment and Plan (1) Severe sepsis: Code(s): A41.9 - Sepsis, unspecified organism; R65.20 - Severe sepsis without septic shock Status: Acute Assessment and Plan: * SIRS criteria met with leukocytosis of 13.4, tachycardia with heart rate of 116, tachypnea with RR being 22-24 * Meets severe sepsis with hypotension, acute on chronic respiratory failure with SPO2 of 85% and INR of 1.5 * source of infection respiratory in nature * Lactic acid 0.7 * Blood cultures pending * Sputum culture showed many white blood cells, mixed bacterial marie * LR given in the ED * cautious hydration with Chronic CHF * IV antibiotic started in ED and continued with azithromycin and Ceftriaxone * Await culture results * Adjust therapy with culture findings * trend labs (2) Acute and chronic respiratory failure: Qualifiers: Respiratory failure complication: hypoxia Qualified Code(s): J96.21 - Acute and chronic respiratory failure with hypoxia Code(s): J96.20 - Acute and chronic respiratory failure, unspecified whether with hypoxia or hypercapnia Status: Acute Assessment and Plan: * Presented to the ED with complaints of worsening shortness of breath * chronically on oxygen at 2 L per nasal cannula at home, however was noted to be sating 85% * Continues to be tachypneic, temp is noted to be 96.8 * Chest CTA shows mucous plugging, atelectasis, and Tracheobronchomalacia * Could be secondary to PNA or COPD * Just recently recovered from COVID * Continue neb treatments * add Pulmozyme nebs to help with mucous plugging * sputum culture showed many white blood cells, mixed bacterial marie * wean oxygen to maintain saturation >90% (3) Pneumonia: Qualifiers: Laterality: bilateral Lung location: unspecified part of lung Pneumonia type: due to unspecified organism Qualified Code(s): J18.9 - Pneumonia, unspecified organism Code(s): J18.9 - Pneumonia, unspecified organism Status: Acute Assessment and Plan: * Presented to the ED with complaints of increased shortness of breath, increased green sputum production * Chronically on 2LNC * Chest xray shows atelectasis * CTA shows bilateral mucous plugging and atelectasis * Continue supplemental oxygen, wean to maintain saturations >90% * Continue ceftriaxone and azithromycin day 3 * Trend respiratory status * Sputum culture collected, await results * Continue breathing treatments * Adjust antibiotics to culture results * trend labs * WBC trending down, currently at 11.9 (4) Chronic kidney disease, stage III (moderate): Qualifiers: Chronic kidney disease stage 3 subtype: stage 3b (GFR 30-44) Qualified Code(s): N18.32 - Chronic kidney disease, stage 3b Code(s): N18.30 - Chronic kidney disease, stage 3 unspecified Status: Acute Assessment and Plan: * BUN/Creatinine elevated, currently 48/2.10 * Baseline creatinine is 1.1-1.50 * Avoid nephrotoxic medications * continue to trend labs * consider urine labs if continues to rise * trend urine output * Seems to be acute kidney failure at this time (5) Acute hyponatremia: Code(s): E87.1 - Hypo-osmolality and hyponatremia Status: Acute Assessment and Plan: * Na 124 at time of arrival * Currently Na is 125 * Raise by 6-8 per Q24H * Most likely related to home medications * Could be related to CHF * Continue to trend * s
[2023-01-01 11:13] LABS: Toxigenic C. Diff NEGATIVE (NEGATIVE)
[2023-01-01 12:22] LABS: Glucose Point of Care 152 mg/dl (65-105)
[2023-01-01 14:14] LABS: Creatinine Urine 75.8 mg/dL; Urea Random Urine 331 MG/DL
[2023-01-01 14:17] LABS: Sodium Urine Random 31 meq/L
[2023-01-01 17:04] LABS: Glucose Point of Care 161 mg/dl (65-105)
[2023-01-01 17:19] LABS: Alanine Aminotransferase 19 U/L (6-35); Albumin Level 3.4 g/dL (3.5-5.1); Alkaline Phosphatase 103 U/L (38-126); Anion Gap 5 mmol/L (8-16); Aspartate Amino Transferase 34 U/L (14-36); Bilirubin,Total 0.5 mg/dL (0.2-1.3); Blood Urea Nitrogen 51 mg/dL (7-17); Calcium 8.5 mg/dL (8.4-10.2); Carbon Dioxide 29 mmol/L (22-30); Chloride 89 mmol/L (98-107); Estimated CRCL calculation 32 ml/min; Estimated Glomerular Filt Rate 23; Glucose 141 mg/dL (65-110); Potassium 4.6 mmol/L (3.4-5.0); Sodium 123 mmol/L (137-145)
[2023-01-01 20:06] LABS: Glucose Point of Care 168 mg/dl (65-105)
[2023-01-01] MEDS: INSULIN GLARGINE (*BKC) 100 UNITS/ML 42 UNITS SUB-Q (20:30)
[2023-01-01] MEDS: rOPINIRole HCL 1 MG TABLET 4 MG PO (20:30)
[2023-01-02] VITALS (14 sets, daily range): BP systolic 103–119; BP diastolic 47–60; PULSE 78–99; RESP 15–20; TEMP 36.3–36.6; O2SAT 92–99
[2023-01-02] MEDS: IPRATROPIUM BR 0.02% INH SOLN 0.5 MG/2.5 ML VIAL INHALATION ×3 (02:31→21:09)
[2023-01-02] MEDS: LEVALBUTEROL NEB 1.25 MG/3 ML INHALATION ×3 (02:31→21:09)
[2023-01-02 05:15] LABS: Basophils Percent Auto 0.4 % (0.2-1.2); Eosinophils Absolute Auto 0.3 K/mm3 (0-0.3); Eosinophils Percent Auto 3.6 % (0-4.4); Hematocrit 29.8 % (37.0-47.0); Hemoglobin 9.8 g/dL (12.0-15.0); Immature Granulocyte Absolute 0.11 K/mm3 (0.00-0.031); Immature Granulocyte Percent A 1.3 % (0-0.5); Lymphocytes Percent Auto 10.5 % (18.3-44.2); Mean Corpuscular HGB Conc 32.9 g/dl (32-36); Mean Corpuscular Hemoglobin 28.9 pg (26-34); Mean Corpuscular Volume 87.9 fl (80-100); Mean Platelet Volume 9.7 fl (7.4-10.4); Monocytes Absolute Auto 0.8 K/mm3 (0.1-0.6); Monocytes Percent Auto 9.5 % (2.6-8.5); Neutrophils Absolute Auto 6.4 K/mm3 (1.3-6.7); Neutrophils Percent Auto 74.7 % (45.5-73.1); Platelet Count Result 229 k/mm3 (150-375); Red Blood Count 3.39 M/mm3 (4.2-5.4); Red Cell Distribution Width 13.8 % (11.5-14.5); White Blood Count 8.6 K/mm3 (4.5-10.0)
[2023-01-02 05:32] LABS: Alanine Aminotransferase 17 U/L (6-35); Albumin Level 3.1 g/dL (3.5-5.1); Alkaline Phosphatase 81 U/L (38-126); Anion Gap 5 mmol/L (8-16); Aspartate Amino Transferase 30 U/L (14-36); Bilirubin,Total 0.5 mg/dL (0.2-1.3); Blood Urea Nitrogen 49 mg/dL (7-17); Calcium 8.3 mg/dL (8.4-10.2); Carbon Dioxide 28 mmol/L (22-30); Chloride 90 mmol/L (98-107); Estimated CRCL calculation 32 ml/min; Estimated Glomerular Filt Rate 23; Glucose 108 mg/dL (65-110); Magnesium 2.1 mg/dL (1.6-2.3); Potassium 4.6 mmol/L (3.4-5.0); Sodium 123 mmol/L (137-145)
[2023-01-02 07:54] LABS: Glucose Point of Care 99 mg/dl (65-105)
[2023-01-02 08:01] LABS: Creatine Kinase 92 U/L (30-135); Iron 49 ug/dL (37-170)
[2023-01-02 08:09] LABS: Transferrin 141 mg/dL (206-381)
[2023-01-02 08:11] LABS: Percent Iron Saturation 22 % (20-50)
[2023-01-02] MEDS: SODIUM CHLORIDE 0.9% IV 1,000 ML 100 ML IV CONT ×2 (08:25→20:25)
[2023-01-02] MEDS: ATORVASTATIN 40 MG TABLET 80 MG PO (08:31)
[2023-01-02] MEDS: BENZONATATE 100 MG CAPSULE 200 MG PO ×3 (08:31→17:22)
[2023-01-02] MEDS: GABAPENTIN 300 MG CAPSULE PO ×3 (08:31→17:20)
[2023-01-02] MEDS: MIRABEGRON 25 MG ER TABLET PO (08:32)
[2023-01-02] MEDS: APIXABAN 2.5 MG TABLET PO ×2 (08:32→20:24)
[2023-01-02] MEDS: allopurinoL 100 MG TABLET PO ×2 (08:32→20:24)
[2023-01-02] MEDS: busPIRone HCL 5 MG TABLET PO ×2 (08:32→17:20)
[2023-01-02] MEDS: FLUTICASONE PROPIONATE 0.05% NA SPR 16 GM BTL (*BKC) 1 SPRAY NASAL (08:33)
[2023-01-02] MEDS: busPIRone HCL 2.5 MG TABLET PO ×2 (08:33→17:20)
[2023-01-02] MEDS: TOLNAFTATE 1% POWDER 45 GM BTL 1 APPLIC TOPICAL ×2 (08:34→20:23)
[2023-01-02] MEDS: POTASSIUM CHLORIDE 10 MEQ TABLET.ER PO (08:35)
[2023-01-02 09:09] LABS: Folic Acid 6.4 ng/mL (2.76->20)
--- NOTE | 2023-01-02 11:45 | PM.IMPN ---
Progress Note: A&P Assessment and Plan (1) Severe sepsis: Code(s): A41.9 - Sepsis, unspecified organism; R65.20 - Severe sepsis without septic shock Status: Acute Assessment and Plan: SIRS criteria met with leukocytosis of 13.4, tachycardia with heart rate of 116, tachypnea with RR being 22-24 Meets severe sepsis with hypotension, acute on chronic respiratory failure with SPO2 of 85% and INR of 1.5 source of infection respiratory in nature Lactic acid 0.7 Blood cultures pending Sputum culture showed normal marie LR given in the ED cautious hydration with Chronic CHF IV antibiotic started in ED and continued with azithromycin and Ceftriaxone Await culture results Adjust therapy with culture findings trend labs (2) Acute and chronic respiratory failure: Qualifiers: Respiratory failure complication: hypoxia Qualified Code(s): J96.21 - Acute and chronic respiratory failure with hypoxia Code(s): J96.20 - Acute and chronic respiratory failure, unspecified whether with hypoxia or hypercapnia Status: Acute Assessment and Plan: Presented to the ED with complaints of worsening shortness of breath chronically on oxygen at 2 L per nasal cannula at home, however was noted to be sating 85% vital signs appear to be more stable Chest CTA shows mucous plugging, atelectasis, and Tracheobronchomalacia Could be secondary to PNA or COPD Just recently recovered from COVID Continue neb treatments add Pulmozyme nebs to help with mucous plugging sputum culture showed normal marie wean oxygen to maintain saturation >90% (3) Pneumonia: Qualifiers: Laterality: bilateral Lung location: unspecified part of lung Pneumonia type: due to unspecified organism Qualified Code(s): J18.9 - Pneumonia, unspecified organism Code(s): J18.9 - Pneumonia, unspecified organism Status: Acute Assessment and Plan: Presented to the ED with complaints of increased shortness of breath, increased green sputum production Chronically on 2LNC Chest xray shows atelectasis CTA shows bilateral mucous plugging and atelectasis Continue supplemental oxygen, wean to maintain saturations >90% Continue ceftriaxone and azithromycin day 4 Trend respiratory status Sputum culture normal marie Continue breathing treatments Adjust antibiotics to culture results trend labs WBC trending down, currently at 8.6 (4) Chronic kidney disease, stage III (moderate): Qualifiers: Chronic kidney disease stage 3 subtype: stage 3b (GFR 30-44) Qualified Code(s): N18.32 - Chronic kidney disease, stage 3b Code(s): N18.30 - Chronic kidney disease, stage 3 unspecified Status: Acute Assessment and Plan: BUN/Creatinine elevated, currently 49/2.10 Baseline creatinine is 1.1-1.50 Avoid nephrotoxic medications continue to trend labs Urine labs, indicate FEUrea indicated pre-renal trend urine output Seems to be acute kidney failure at this time (5) Acute hyponatremia: Code(s): E87.1 - Hypo-osmolality and hyponatremia Status: Acute Assessment and Plan: Na 124 at time of arrival Currently Na is 123, getting worse Raise by 6-8 per Q24H Most likely related to home medications Could be related to CHF Continue to trend Add fluids back await more recommendations from nephrology Most likely would need sodium tabs Nephrology has been consulted Stopped sertraline, Protonix, Lasix start fluid restriction Urine studies Na 31, Urea 331, Creatinine 75.8, FEURea pre renal disease Cortisol 16.80 (6) CIRILO (obstructive sleep apnea): Code(s): G47.33 - Obstructive sleep apnea (adult) (pediatric) Status: Acute Assessment and Plan: Continue with cpap at home settings. Respiratory to manage (7) Hyperlipidemia: Qualifiers:
--- NOTE | 2023-01-02 11:45 | P.PNIM_ITS ---
Progress Note: A&P Assessment and Plan (1) Severe sepsis: Code(s): A41.9 - Sepsis, unspecified organism; R65.20 - Severe sepsis without septic shock Status: Acute Assessment and Plan: * SIRS criteria met with leukocytosis of 13.4, tachycardia with heart rate of 116, tachypnea with RR being 22-24 * Meets severe sepsis with hypotension, acute on chronic respiratory failure with SPO2 of 85% and INR of 1.5 * source of infection respiratory in nature * Lactic acid 0.7 * Blood cultures pending * Sputum culture showed normal marie * LR given in the ED * cautious hydration with Chronic CHF * IV antibiotic started in ED and continued with azithromycin and Ceftriaxone * Await culture results * Adjust therapy with culture findings * trend labs (2) Acute and chronic respiratory failure: Qualifiers: Respiratory failure complication: hypoxia Qualified Code(s): J96.21 - Acute and chronic respiratory failure with hypoxia Code(s): J96.20 - Acute and chronic respiratory failure, unspecified whether with hypoxia or hypercapnia Status: Acute Assessment and Plan: * Presented to the ED with complaints of worsening shortness of breath * chronically on oxygen at 2 L per nasal cannula at home, however was noted to be sating 85% * vital signs appear to be more stable * Chest CTA shows mucous plugging, atelectasis, and Tracheobronchomalacia * Could be secondary to PNA or COPD * Just recently recovered from COVID * Continue neb treatments * add Pulmozyme nebs to help with mucous plugging * sputum culture showed normal marie * wean oxygen to maintain saturation >90% (3) Pneumonia: Qualifiers: Laterality: bilateral Lung location: unspecified part of lung Pneumonia type: due to unspecified organism Qualified Code(s): J18.9 - Pneumonia, unspecified organism Code(s): J18.9 - Pneumonia, unspecified organism Status: Acute Assessment and Plan: * Presented to the ED with complaints of increased shortness of breath, increased green sputum production * Chronically on 2LNC * Chest xray shows atelectasis * CTA shows bilateral mucous plugging and atelectasis * Continue supplemental oxygen, wean to maintain saturations >90% * Continue ceftriaxone and azithromycin day 4 * Trend respiratory status * Sputum culture normal marie * Continue breathing treatments * Adjust antibiotics to culture results * trend labs * WBC trending down, currently at 8.6 (4) Chronic kidney disease, stage III (moderate): Qualifiers: Chronic kidney disease stage 3 subtype: stage 3b (GFR 30-44) Qualified Code(s): N18.32 - Chronic kidney disease, stage 3b Code(s): N18.30 - Chronic kidney disease, stage 3 unspecified Status: Acute Assessment and Plan: * BUN/Creatinine elevated, currently 49/2.10 * Baseline creatinine is 1.1-1.50 * Avoid nephrotoxic medications * continue to trend labs * Urine labs, indicate FEUrea indicated pre-renal * trend urine output * Seems to be acute kidney failure at this time (5) Acute hyponatremia: Code(s): E87.1 - Hypo-osmolality and hyponatremia Status: Acute Assessment and Plan: * Na 124 at time of arrival * Currently Na is 123, getting worse * Raise by 6-8 per Q24H * Most likely related to home medications * Could be related to CHF * Continue to trend * Add fluids back * await more recommendations from nephrology *
[2023-01-02 11:51] LABS: Glucose Point of Care 130 mg/dl (65-105)
--- NOTE | 2023-01-02 12:37 | PM.CNNEP ---
Assessment and Plan Assessment and plan (1) Hyponatremia: Code(s): E87.1 - Hypo-osmolality and hyponatremia Status: Acute Assessment and Plan: acute sodium normal ~ 6 months ago however, appears to have had issues with this in the past (August 2019) multiple risk factors for low sodium: lung disease (COPD) known history of CHF known history of CKD recent COVID infection mdedications (diuretics, SSRI, PPI) acute pneumonia suspect acute respiratory infection may have precipitated this issue just recently stopped lasix, PPI, and SSRI initiated on fluid restriction urne electrolytes suggest pre-renal azotemia restarted on normal saline IVF follow-up on cortisol level check TSH, SPEP, UPEP, and serum/urine osmolality follow trend of repeat sodium levels (2) DAYDAY (acute kidney injury): Code(s): N17.9 - Acute kidney failure, unspecified Status: Acute Assessment and Plan: multifactorial: prerenal factors acute infection early sepsis contrast (CTA on chest on 12/30/22) diuretic + FERNANDO-I use in this context check renal ultrasound agree with trial of IVFs repeat labs and follow UOP (3) Chronic kidney disease, stage III (moderate): Qualifiers: Chronic kidney disease stage 3 subtype: stage 3b (GFR 30-44) Qualified Code(s): N18.32 - Chronic kidney disease, stage 3b Code(s): N18.30 - Chronic kidney disease, stage 3 unspecified Status: Chronic Assessment and Plan: basline creatinine runs ~ 1.1 - 1.6mg/dl in the last few years this cause her to fluctuate between CKD stage 3A and stage 3B presumably due to her DM, HTN, vascular disease, COPD, and age-related change (4) Acute and chronic respiratory failure: Qualifiers: Respiratory failure complication: hypoxia Qualified Code(s): J96.21 - Acute and chronic respiratory failure with hypoxia Code(s): J96.20 - Acute and chronic respiratory failure, unspecified whether with hypoxia or hypercapnia Status: Acute Assessment and Plan: secondary #5 on top of her known COPD/CIRILO and possible recent COVID infection chronically on 2L per NC but hypoxic even with this on presentation CTA of chest with mucous plugging, atelectasis, and tracheobronchomalacia continue nebs, pulmozyme, and antibiotics wean oxygen as tolerated (5) Pneumonia: Qualifiers: Pneumonia type: due to unspecified organism Laterality: bilateral Lung location: unspecified part of lung Qualified Code(s): J18.9 - Pneumonia, unspecified organism Code(s): J18.9 - Pneumonia, unspecified organism Status: Acute Assessment and Plan: suspected given clinical history imaging studies noted culture data reviewed on antibiotics follow WBC and clinical exam (6) Essential (primary) hypertension: Code(s): I10 - Essential (primary) hypertension Status: Chronic Assessment and Plan: reasonable control at this time follow trend of hemodynamics (7) Type 2 diabetes mellitus treated with insulin: Code(s): E11.9 - Type 2 diabetes mellitus without complications; Z79.4 - senior living (current) use of insulin Status: Chronic Assessment and Plan: follow accuchecks glycemic control per hospitalists I will continue to follow the patient with you while she remains hospitalized to make further recommendations during her hospital course. Thank you for allowing me for to participate n the care of this patient. History of Present Illness Reason for Consult Consult date: 01/02/23 Reason for consult: hyponatremia Chief Complaint Chief complaint: pna,hypona History of Present Illness Narrative: The patient is a 72-year-old female with a past medical history as outlined below who presented to [facility] Emergency room with complaints of shortness of breath. The patient is known to have chronic respiratory
--- NOTE | 2023-01-02 12:37 | P.CONNP_ITS ---
Assessment and Plan Assessment and plan (1) Hyponatremia: Code(s): E87.1 - Hypo-osmolality and hyponatremia Status: Acute Assessment and Plan: * acute * sodium normal ~ 6 months ago * however, appears to have had issues with this in the past (August 2019) * multiple risk factors for low sodium: * lung disease (COPD) * known history of CHF * known history of CKD * recent COVID infection * mdedications (diuretics, SSRI, PPI) * acute pneumonia * suspect acute respiratory infection may have precipitated this issue * just recently stopped lasix, PPI, and SSRI * initiated on fluid restriction * urne electrolytes suggest pre-renal azotemia * restarted on normal saline IVF * follow-up on cortisol level * check TSH, SPEP, UPEP, and serum/urine osmolality * follow trend of repeat sodium levels (2) DAYDAY (acute kidney injury): Code(s): N17.9 - Acute kidney failure, unspecified Status: Acute Assessment and Plan: * multifactorial: * prerenal factors * acute infection * early sepsis * contrast (CTA on chest on 12/30/22) * diuretic + FERNANDO-I use in this context * check renal ultrasound * agree with trial of IVFs * repeat labs and follow UOP (3) Chronic kidney disease, stage III (moderate): Qualifiers: Chronic kidney disease stage 3 subtype: stage 3b (GFR 30-44) Qualified Code(s): N18.32 - Chronic kidney disease, stage 3b Code(s): N18.30 - Chronic kidney disease, stage 3 unspecified Status: Chronic Assessment and Plan: * basline creatinine runs ~ 1.1 - 1.6mg/dl in the last few years * this cause her to fluctuate between CKD stage 3A and stage 3B * presumably due to her DM, HTN, vascular disease, COPD, and age-related change (4) Acute and chronic respiratory failure: Qualifiers: Respiratory failure complication: hypoxia Qualified Code(s): J96.21 - Acute and chronic respiratory failure with hypoxia Code(s): J96.20 - Acute and chronic respiratory failure, unspecified whether with hypoxia or hypercapnia Status: Acute Assessment and Plan: * secondary #5 on top of her known COPD/CIRILO and possible recent COVID infection * chronically on 2L per NC but hypoxic even with this on presentation * CTA of chest with mucous plugging, atelectasis, and tracheobronchomalacia * continue nebs, pulmozyme, and antibiotics * wean oxygen as tolerated (5) Pneumonia: Qualifiers: Pneumonia type: due to unspecified organism Laterality: bilateral Lung location: unspecified part of lung Qualified Code(s): J18.9 - Pneumonia, unspecified organism Code(s): J18.9 - Pneumonia, unspecified organism Status: Acute Assessment and Plan: * suspected given clinical history * imaging studies noted * culture data reviewed * on antibiotics * follow WBC and clinical exam (6) Essential (primary) hypertension: Code(s): I10 - Essential (primary) hypertension Status: Chronic Assessment and Plan: * reasonable control at this time * follow trend of hemodynamics (7) Type 2 diabetes mellitus treated with insulin: Code(s): E11.9 - Type 2 diabetes mellitus without complications; 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 Thank you for allowing me
[2023-01-02] MEDS: LOPERAMIDE HCL 2 MG CAPSULE 4 MG PO (15:52)
[2023-01-02 17:21] LABS: Glucose Point of Care 192 mg/dl (65-105)
[2023-01-02] MEDS: INSULIN GLARGINE (*BKC) 100 UNITS/ML 42 UNITS SUB-Q (20:24)
[2023-01-02] MEDS: rOPINIRole HCL 1 MG TABLET 4 MG PO (20:24)
[2023-01-02] MEDS: DORNASE ALFA INH SOLN 1 MG/ML 2.5 ML AMP 2.5 MG INHALATION (21:10)
[2023-01-02 22:26] LABS: Glucose Point of Care 178 mg/dl (65-105)
[2023-01-03] VITALS (13 sets, daily range): BP systolic 107–124; BP diastolic 50–90; PULSE 71–89; RESP 15–20; TEMP 36.1–36.7; O2SAT 93–100
[2023-01-03] MEDS: IPRATROPIUM BR 0.02% INH SOLN 0.5 MG/2.5 ML VIAL INHALATION ×4 (02:51→20:22)
[2023-01-03] MEDS: LEVALBUTEROL NEB 1.25 MG/3 ML INHALATION ×4 (02:51→20:22)
[2023-01-03 05:18] LABS: Basophils Percent Auto 0.4 % (0.2-1.2); Eosinophils Absolute Auto 0.4 K/mm3 (0-0.3); Eosinophils Percent Auto 4.6 % (0-4.4); Hematocrit 31.3 % (37.0-47.0); Hemoglobin 10.2 g/dL (12.0-15.0); Immature Granulocyte Absolute 0.29 K/mm3 (0.00-0.031); Immature Granulocyte Percent A 3.8 % (0-0.5); Lymphocytes Absolute Auto 0.83 K/mm3 (0.9-3.2); Lymphocytes Percent Auto 10.9 % (18.3-44.2); Mean Corpuscular HGB Conc 32.6 g/dl (32-36); Mean Corpuscular Hemoglobin 28.9 pg (26-34); Mean Corpuscular Volume 88.7 fl (80-100); Mean Platelet Volume 9.6 fl (7.4-10.4); Monocytes Absolute Auto 0.7 K/mm3 (0.1-0.6); Monocytes Percent Auto 9.6 % (2.6-8.5); Neutrophils Absolute Auto 5.4 K/mm3 (1.3-6.7); Neutrophils Percent Auto 70.7 % (45.5-73.1); Platelet Count Result 257 k/mm3 (150-375); Red Blood Count 3.53 M/mm3 (4.2-5.4); Red Cell Distribution Width 13.6 % (11.5-14.5); White Blood Count 7.6 K/mm3 (4.5-10.0)
[2023-01-03 05:36] LABS: Alanine Aminotransferase 17 U/L (6-35); Albumin Level 3.2 g/dL (3.5-5.1); Alkaline Phosphatase 105 U/L (38-126); Anion Gap 1 mmol/L (8-16); Aspartate Amino Transferase 34 U/L (14-36); Bilirubin,Total 0.4 mg/dL (0.2-1.3); Blood Urea Nitrogen 47 mg/dL (7-17); Calcium 8.7 mg/dL (8.4-10.2); Carbon Dioxide 30 mmol/L (22-30); Chloride 94 mmol/L (98-107); Estimated CRCL calculation 36 ml/min; Estimated Glomerular Filt Rate 26; Glucose 103 mg/dL (65-110); Magnesium 2.2 mg/dL (1.6-2.3); Potassium 5.7 mmol/L (3.4-5.0); Sodium 125 mmol/L (137-145)
[2023-01-03] MEDS: SODIUM CHLORIDE 0.9% IV 1,000 ML 100 ML IV CONT (06:38)
[2023-01-03 08:40] LABS: Glucose Point of Care 83 mg/dl (65-105)
[2023-01-03] MEDS: APIXABAN 2.5 MG TABLET PO ×2 (09:18→21:19)
[2023-01-03] MEDS: GABAPENTIN 300 MG CAPSULE PO ×3 (09:18→17:25)
[2023-01-03] MEDS: allopurinoL 100 MG TABLET PO ×2 (09:18→21:18)
[2023-01-03] MEDS: ATORVASTATIN 40 MG TABLET 80 MG PO (09:18)
[2023-01-03] MEDS: MIRABEGRON 25 MG ER TABLET PO (09:18)
[2023-01-03] MEDS: LOPERAMIDE HCL 2 MG CAPSULE PO ×2 (09:18→12:22)
[2023-01-03] MEDS: busPIRone HCL 2.5 MG TABLET PO ×2 (09:18→17:24)
[2023-01-03] MEDS: busPIRone HCL 5 MG TABLET PO ×2 (09:19→17:24)
[2023-01-03] MEDS: FLUTICASONE PROPIONATE 0.05% NA SPR 16 GM BTL (*BKC) 1 SPRAY NASAL (09:20)
[2023-01-03] MEDS: TOLNAFTATE 1% POWDER 45 GM BTL 1 APPLIC TOPICAL ×2 (09:20→21:19)
[2023-01-03] MEDS: BENZONATATE 100 MG CAPSULE 200 MG PO ×3 (09:23→17:27)
--- NOTE | 2023-01-03 10:00 | PM.IMPN ---
Progress Note: A&P Assessment and Plan (1) Severe sepsis: Code(s): A41.9 - Sepsis, unspecified organism; R65.20 - Severe sepsis without septic shock Status: Acute Assessment and Plan: SIRS criteria met with leukocytosis of 13.4, tachycardia with heart rate of 116, tachypnea with RR being 22-24 Meets severe sepsis with hypotension, acute on chronic respiratory failure with SPO2 of 85% and INR of 1.5 source of infection respiratory in nature Lactic acid 0.7 Blood cultures pending Sputum culture showed normal marie LR given in the ED cautious hydration with Chronic CHF IV antibiotic started in ED and continued with azithromycin and Ceftriaxone Await culture results Adjust therapy with culture findings trend labs (2) Acute and chronic respiratory failure: Qualifiers: Respiratory failure complication: hypoxia Qualified Code(s): J96.21 - Acute and chronic respiratory failure with hypoxia Code(s): J96.20 - Acute and chronic respiratory failure, unspecified whether with hypoxia or hypercapnia Status: Acute Assessment and Plan: Presented to the ED with complaints of worsening shortness of breath chronically on oxygen at 2 L per nasal cannula at home, however was noted to be sating 85% vital signs appear to be more stable Chest CTA shows mucous plugging, atelectasis, and Tracheobronchomalacia Could be secondary to PNA or COPD Just recently recovered from COVID Continue neb treatments Stop Pulmozyme nebs, completed 48 hours of therapy sputum culture showed normal marie wean oxygen to maintain saturation >90% Worse today, give one dose of lasix (3) Pneumonia: Qualifiers: Laterality: bilateral Lung location: unspecified part of lung Pneumonia type: due to unspecified organism Qualified Code(s): J18.9 - Pneumonia, unspecified organism Code(s): J18.9 - Pneumonia, unspecified organism Status: Acute Assessment and Plan: Presented to the ED with complaints of increased shortness of breath, increased green sputum production Chronically on 2LNC Chest xray shows atelectasis CTA shows bilateral mucous plugging and atelectasis Continue supplemental oxygen, wean to maintain saturations >90% Continue ceftriaxone and azithromycin day 5 Trend respiratory status Sputum culture normal marie Continue breathing treatments Adjust antibiotics to culture results trend labs WBC trending down, currently at 7.6 (4) Chronic kidney disease, stage III (moderate): Qualifiers: Chronic kidney disease stage 3 subtype: stage 3b (GFR 30-44) Qualified Code(s): N18.32 - Chronic kidney disease, stage 3b Code(s): N18.30 - Chronic kidney disease, stage 3 unspecified Status: Chronic Assessment and Plan: BUN/Creatinine elevated, currently 47/1.90 Baseline creatinine is 1.1-1.50 Avoid nephrotoxic medications continue to trend labs Urine labs, indicate FEUrea indicated pre-renal trend urine output Seems to be acute kidney failure at this time (5) Acute hyponatremia: Code(s): E87.1 - Hypo-osmolality and hyponatremia Status: Acute Assessment and Plan: Na 124 at time of arrival Currently Na is 125 Raise by 6-8 per Q24H Most likely related to home medications Could be related to CHF Continue to trend Add fluids back await more recommendations from nephrology Most likely would need sodium tabs Nephrology has been consulted Stopped sertraline, Protonix, Lasix start fluid restriction Urine studies Na 31, Urea 331, Creatinine 75.8, FEURea pre renal disease Cortisol 16.80 add sodium tabs 1 g b.i.d. (6) CIRILO (obstructive sleep apnea): Code(s): G47.33 - Obstructive sleep apnea (adult) (pediatric) Status: Acute Assessment and Plan: Continue with cpap at home settings. Respiratory to manage
--- NOTE | 2023-01-03 10:00 | P.PNIM_ITS ---
Progress Note: A&P Assessment and Plan (1) Severe sepsis: Code(s): A41.9 - Sepsis, unspecified organism; R65.20 - Severe sepsis without septic shock Status: Acute Assessment and Plan: * SIRS criteria met with leukocytosis of 13.4, tachycardia with heart rate of 116, tachypnea with RR being 22-24 * Meets severe sepsis with hypotension, acute on chronic respiratory failure with SPO2 of 85% and INR of 1.5 * source of infection respiratory in nature * Lactic acid 0.7 * Blood cultures pending * Sputum culture showed normal marie * LR given in the ED * cautious hydration with Chronic CHF * IV antibiotic started in ED and continued with azithromycin and Ceftriaxone * Await culture results * Adjust therapy with culture findings * trend labs (2) Acute and chronic respiratory failure: Qualifiers: Respiratory failure complication: hypoxia Qualified Code(s): J96.21 - Acute and chronic respiratory failure with hypoxia Code(s): J96.20 - Acute and chronic respiratory failure, unspecified whether with hypoxia or hypercapnia Status: Acute Assessment and Plan: * Presented to the ED with complaints of worsening shortness of breath * chronically on oxygen at 2 L per nasal cannula at home, however was noted to be sating 85% * vital signs appear to be more stable * Chest CTA shows mucous plugging, atelectasis, and Tracheobronchomalacia * Could be secondary to PNA or COPD * Just recently recovered from COVID * Continue neb treatments * Stop Pulmozyme nebs, completed 48 hours of therapy * sputum culture showed normal marie * wean oxygen to maintain saturation >90% * Worse today, give one dose of lasix (3) Pneumonia: Qualifiers: Laterality: bilateral Lung location: unspecified part of lung Pneumonia type: due to unspecified organism Qualified Code(s): J18.9 - Pneumonia, unspecified organism Code(s): J18.9 - Pneumonia, unspecified organism Status: Acute Assessment and Plan: * Presented to the ED with complaints of increased shortness of breath, increased green sputum production * Chronically on 2LNC * Chest xray shows atelectasis * CTA shows bilateral mucous plugging and atelectasis * Continue supplemental oxygen, wean to maintain saturations >90% * Continue ceftriaxone and azithromycin day 5 * Trend respiratory status * Sputum culture normal marie * Continue breathing treatments * Adjust antibiotics to culture results * trend labs * WBC trending down, currently at 7.6 (4) Chronic kidney disease, stage III (moderate): Qualifiers: Chronic kidney disease stage 3 subtype: stage 3b (GFR 30-44) Qualified Code(s): N18.32 - Chronic kidney disease, stage 3b Code(s): N18.30 - Chronic kidney disease, stage 3 unspecified Status: Chronic Assessment and Plan: * BUN/Creatinine elevated, currently 47/1.90 * Baseline creatinine is 1.1-1.50 * Avoid nephrotoxic medications * continue to trend labs * Urine labs, indicate FEUrea indicated pre-renal * trend urine output * Seems to be acute kidney failure at this time (5) Acute hyponatremia: Code(s): E87.1 - Hypo-osmolality and hyponatremia Status: Acute Assessment and Plan: * Na 124 at time of arrival * Currently Na is 125 * Raise by 6-8 per Q24H * Most likely related to home medications * Could be related to CHF * Continue to trend * Add fluids back * await more recomm
[2023-01-03] MEDS: FUROSEMIDE INJ 40 MG/4 ML VIAL IV PUSH (10:28)
[2023-01-03 12:18] LABS: Glucose Point of Care 134 mg/dl (65-105)
[2023-01-03] MEDS: INSULIN GLARGINE (*BKC) 100 UNITS/ML 28 UNITS SUB-Q (12:20)
--- NOTE | 2023-01-03 12:38 | PM.PNNEP ---
Progress Note: A&P Assessment and Plan (1) Hyponatremia: Code(s): E87.1 - Hypo-osmolality and hyponatremia Status: Acute Assessment and Plan: acute sodium normal ~ 6 months ago however, appears to have had issues with this in the past (August 2019) multiple risk factors for low sodium: lung disease (COPD) known history of CHF known history of CKD recent COVID infection mdedications (diuretics, SSRI, PPI) acute pneumonia suspect acute respiratory infection may have precipitated this issue just recently stopped lasix, PPI, and SSRI on fluid restriction evaluation to date: urine electrolytes suggest pre-renal azotemia cortisol level okay follow-up on TSH, SPEP, UPEP, and serum/urine osmolality off IVFs and started on salt tablets follow trend of repeat sodium levels (2) DAYDAY (acute kidney injury): Code(s): N17.9 - Acute kidney failure, unspecified Status: Acute Assessment and Plan: mild improvement multifactorial: prerenal factors acute infection early sepsis (?) contrast (CTA on chest on 12/30/22) diuretic + FERNANDO-I use in this context off trial of IVFs repeat labs and follow UOP (3) Chronic kidney disease, stage III (moderate): Qualifiers: Chronic kidney disease stage 3 subtype: stage 3b (GFR 30-44) Qualified Code(s): N18.32 - Chronic kidney disease, stage 3b Code(s): N18.30 - Chronic kidney disease, stage 3 unspecified Status: Chronic Assessment and Plan: basline creatinine runs ~ 1.1 - 1.6mg/dl in the last few years this cause her to fluctuate between CKD stage 3A and stage 3B presumably due to her DM, HTN, vascular disease, COPD, and age-related change (4) Acute and chronic respiratory failure: Qualifiers: Respiratory failure complication: hypoxia Qualified Code(s): J96.21 - Acute and chronic respiratory failure with hypoxia Code(s): J96.20 - Acute and chronic respiratory failure, unspecified whether with hypoxia or hypercapnia Status: Acute Assessment and Plan: secondary #5 on top of her known COPD/CIRILO and possible recent COVID infection chronically on 2L per NC but hypoxic even with this on presentation CTA of chest with mucous plugging, atelectasis, and tracheobronchomalacia continue nebs, pulmozyme, and antibiotics wean oxygen as tolerated (5) Pneumonia: Qualifiers: Laterality: bilateral Lung location: unspecified part of lung Pneumonia type: due to unspecified organism Qualified Code(s): J18.9 - Pneumonia, unspecified organism Code(s): J18.9 - Pneumonia, unspecified organism Status: Acute Assessment and Plan: suspected given clinical history imaging studies noted culture data reviewed on antibiotics follow WBC and clinical exam (6) Essential (primary) hypertension: Code(s): I10 - Essential (primary) hypertension Status: Chronic Assessment and Plan: reasonable control at this time follow trend of hemodynamics (7) Type 2 diabetes mellitus treated with insulin: Code(s): E11.9 - Type 2 diabetes mellitus without complications; Z79.4 - USP (current) use of insulin Status: Chronic Assessment and Plan: follow accuchecks glycemic control per hospitalists Will continue to follow. Subjective Date/time seen: 01/03/23 12:38 Interval history: Follow-up for hyponatremia and acute kidney injury on top of chronic kidney disease. She states that her breathing/respiratory status has deteriorated in association with a worsening productive cough; sodium a bit better with normal saline IVFs and given a dose of IV lasix earlier this morning on the assumption fluid overload was contributing her worsening shortness of breath (however, repeat CXR without evidence of pulmonary edema). Exam Narrative: General: ill appearing female in NAD Heart: normal S1 and
--- NOTE | 2023-01-03 12:38 | P.PNNP_ITS ---
Progress Note: A&P Assessment and Plan (1) Hyponatremia: Code(s): E87.1 - Hypo-osmolality and hyponatremia Status: Acute Assessment and Plan: * acute * sodium normal ~ 6 months ago * however, appears to have had issues with this in the past (August 2019) * multiple risk factors for low sodium: * lung disease (COPD) * known history of CHF * known history of CKD * recent COVID infection * mdedications (diuretics, SSRI, PPI) * acute pneumonia * suspect acute respiratory infection may have precipitated this issue * just recently stopped lasix, PPI, and SSRI * on fluid restriction * evaluation to date: * urine electrolytes suggest pre-renal azotemia * cortisol level okay * follow-up on TSH, SPEP, UPEP, and serum/urine osmolality * off IVFs and started on salt tablets * follow trend of repeat sodium levels (2) DAYDAY (acute kidney injury): Code(s): N17.9 - Acute kidney failure, unspecified Status: Acute Assessment and Plan: * mild improvement * multifactorial: * prerenal factors * acute infection * early sepsis (?) * contrast (CTA on chest on 12/30/22) * diuretic + FERNANDO-I use in this context * off trial of IVFs * repeat labs and follow UOP (3) Chronic kidney disease, stage III (moderate): Qualifiers: Chronic kidney disease stage 3 subtype: stage 3b (GFR 30-44) Qualified Code(s): N18.32 - Chronic kidney disease, stage 3b Code(s): N18.30 - Chronic kidney disease, stage 3 unspecified Status: Chronic Assessment and Plan: * basline creatinine runs ~ 1.1 - 1.6mg/dl in the last few years * this cause her to fluctuate between CKD stage 3A and stage 3B * presumably due to her DM, HTN, vascular disease, COPD, and age-related change (4) Acute and chronic respiratory failure: Qualifiers: Respiratory failure complication: hypoxia Qualified Code(s): J96.21 - Acute and chronic respiratory failure with hypoxia Code(s): J96.20 - Acute and chronic respiratory failure, unspecified whether with hypoxia or hypercapnia Status: Acute Assessment and Plan: * secondary #5 on top of her known COPD/CIRILO and possible recent COVID infection * chronically on 2L per NC but hypoxic even with this on presentation * CTA of chest with mucous plugging, atelectasis, and tracheobronchomalacia * continue nebs, pulmozyme, and antibiotics * wean oxygen as tolerated (5) Pneumonia: Qualifiers: Laterality: bilateral Lung location: unspecified part of lung Pneumonia type: due to unspecified organism Qualified Code(s): J18.9 - Pneumonia, unspecified organism Code(s): J18.9 - Pneumonia, unspecified organism Status: Acute Assessment and Plan: * suspected given clinical history * imaging studies noted * culture data reviewed * on antibiotics * follow WBC and clinical exam (6) Essential (primary) hypertension: Code(s): I10 - Essential (primary) hypertension Status: Chronic Assessment and Plan: * reasonable control at this time * follow trend of hemodynamics (7) Type 2 diabetes mellitus treated with insulin: Code(s): E11.9 - Type 2 diabetes mellitus without complications; 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 Subjective Date/time seen: 01/03/23 12:38 Interval history: Follow-up for hyponatremia
[2023-01-03 17:05] LABS: Creatinine Urine 17.2 mg/dL; Total Protein Urine Random 15 mg/dL; Ur Ttl Prot Creatinine Ratio 0.87 mg/mg (0-0.20)
[2023-01-03 17:19] LABS: Glucose Point of Care 149 mg/dl (65-105)
[2023-01-03] MEDS: SODIUM CHLORIDE 1 GM TABLET PO (17:24)
[2023-01-03 20:24] LABS: Glucose Point of Care 142 mg/dl (65-105)
[2023-01-03] MEDS: rOPINIRole HCL 1 MG TABLET 4 MG PO (21:19)
[2023-01-03] MEDS: INSULIN GLARGINE (*BKC) 100 UNITS/ML 42 UNITS SUB-Q (21:19)
[2023-01-04] VITALS (13 sets, daily range): BP systolic 92–127; BP diastolic 49–62; PULSE 64–98; RESP 12–20; TEMP 36.3–37.1; O2SAT 93–100
[2023-01-04 05:41] LABS: Basophils Absolute Auto 0.1 K/mm3 (0.0-0.1); Basophils Percent Auto 0.8 % (0.2-1.2); Eosinophils Absolute Auto 0.4 K/mm3 (0-0.3); Eosinophils Percent Auto 5.3 % (0-4.4); Hematocrit 30.6 % (37.0-47.0); Hemoglobin 9.9 g/dL (12.0-15.0); Immature Granulocyte Absolute 0.35 K/mm3 (0.00-0.031); Immature Granulocyte Percent A 4.5 % (0-0.5); Lymphocytes Absolute Auto 0.91 K/mm3 (0.9-3.2); Lymphocytes Percent Auto 11.8 % (18.3-44.2); Mean Corpuscular HGB Conc 32.4 g/dl (32-36); Mean Corpuscular Hemoglobin 28.9 pg (26-34); Mean Corpuscular Volume 89.5 fl (80-100); Mean Platelet Volume 9.3 fl (7.4-10.4); Monocytes Absolute Auto 0.7 K/mm3 (0.1-0.6); Monocytes Percent Auto 9.6 % (2.6-8.5); Neutrophils Absolute Auto 5.3 K/mm3 (1.3-6.7); Platelet Count Result 281 k/mm3 (150-375); Red Blood Count 3.42 M/mm3 (4.2-5.4); Red Cell Distribution Width 13.9 % (11.5-14.5); White Blood Count 7.7 K/mm3 (4.5-10.0)
[2023-01-04 05:53] LABS: Alanine Aminotransferase 16 U/L (6-35); Albumin Level 3.1 g/dL (3.5-5.1); Alkaline Phosphatase 90 U/L (38-126); Anion Gap 5 mmol/L (8-16); Aspartate Amino Transferase 27 U/L (14-36); Bilirubin,Total 0.4 mg/dL (0.2-1.3); Blood Urea Nitrogen 42 mg/dL (7-17); Calcium 8.5 mg/dL (8.4-10.2); Carbon Dioxide 27 mmol/L (22-30); Chloride 95 mmol/L (98-107); Estimated CRCL calculation 38 ml/min; Estimated Glomerular Filt Rate 28; Glucose 78 mg/dL (65-110); Potassium 4.8 mmol/L (3.4-5.0); Sodium 127 mmol/L (137-145)
[2023-01-04 06:24] LABS: Thyroid Stimulating Hormone Reflex 0.565 uIU/mL (0.465-4.68)
[2023-01-04 08:28] LABS: Glucose Point of Care 78 mg/dl (65-105)
[2023-01-04] MEDS: busPIRone HCL 5 MG TABLET PO ×2 (08:51→17:15)
[2023-01-04] MEDS: SODIUM CHLORIDE 1 GM TABLET PO ×2 (08:51→17:16)
[2023-01-04] MEDS: allopurinoL 100 MG TABLET PO ×2 (08:51→20:13)
[2023-01-04] MEDS: GABAPENTIN 300 MG CAPSULE PO ×3 (08:51→17:16)
[2023-01-04] MEDS: busPIRone HCL 2.5 MG TABLET PO ×2 (08:51→17:15)
[2023-01-04] MEDS: ATORVASTATIN 40 MG TABLET 80 MG PO (08:51)
[2023-01-04] MEDS: BENZONATATE 100 MG CAPSULE 200 MG PO ×3 (08:51→17:15)
[2023-01-04] MEDS: APIXABAN 2.5 MG TABLET PO ×2 (08:51→20:13)
[2023-01-04] MEDS: MIRABEGRON 25 MG ER TABLET PO (08:51)
[2023-01-04] MEDS: INSULIN GLARGINE (*BKC) 100 UNITS/ML 28 UNITS SUB-Q (08:52)
[2023-01-04] MEDS: FLUTICASONE PROPIONATE 0.05% NA SPR 16 GM BTL (*BKC) 1 SPRAY NASAL (08:56)
[2023-01-04] MEDS: TOLNAFTATE 1% POWDER 45 GM BTL 1 APPLIC TOPICAL ×2 (08:57→20:14)
--- NOTE | 2023-01-04 09:30 | PM.IMPN ---
Progress Note: A&P Assessment and Plan (1) Severe sepsis: Code(s): A41.9 - Sepsis, unspecified organism; R65.20 - Severe sepsis without septic shock Status: Acute Assessment and Plan: SIRS criteria met with leukocytosis of 13.4, tachycardia with heart rate of 116, tachypnea with RR being 22-24 Meets severe sepsis with hypotension, acute on chronic respiratory failure with SPO2 of 85% and INR of 1.5 source of infection respiratory in nature Lactic acid 0.7 Blood cultures NGTD Sputum culture showed normal marie LR given in the ED cautious hydration with Chronic CHF IV antibiotic started in ED and continued with azithromycin and Ceftriaxone Await culture results Adjust therapy with culture findings trend labs (2) Acute and chronic respiratory failure: Qualifiers: Respiratory failure complication: hypoxia Qualified Code(s): J96.21 - Acute and chronic respiratory failure with hypoxia Code(s): J96.20 - Acute and chronic respiratory failure, unspecified whether with hypoxia or hypercapnia Status: Acute Assessment and Plan: Presented to the ED with complaints of worsening shortness of breath chronically on oxygen at 2 L per nasal cannula at home, however was noted to be sating 85% vital signs appear to be more stable Chest CTA shows mucous plugging, atelectasis, and Tracheobronchomalacia Could be secondary to PNA or COPD Just recently recovered from COVID Continue neb treatments Stop Pulmozyme nebs, completed 48 hours of therapy sputum culture showed normal marie wean oxygen to maintain saturation >90% Worse today, give one dose of lasix (3) Pneumonia: Qualifiers: Laterality: bilateral Lung location: unspecified part of lung Pneumonia type: due to unspecified organism Qualified Code(s): J18.9 - Pneumonia, unspecified organism Code(s): J18.9 - Pneumonia, unspecified organism Status: Acute Assessment and Plan: Presented to the ED with complaints of increased shortness of breath, increased green sputum production Chronically on 2LNC Chest xray shows atelectasis CTA shows bilateral mucous plugging and atelectasis Continue supplemental oxygen, wean to maintain saturations >90% Continue ceftriaxone day 6 azithromycin completed 5 day course Trend respiratory status Sputum culture normal marie Continue breathing treatments Adjust antibiotics to culture results trend labs WBC trending down, currently at 7.7 (4) Chronic kidney disease, stage III (moderate): Qualifiers: Chronic kidney disease stage 3 subtype: stage 3b (GFR 30-44) Qualified Code(s): N18.32 - Chronic kidney disease, stage 3b Code(s): N18.30 - Chronic kidney disease, stage 3 unspecified Status: Chronic Assessment and Plan: BUN/Creatinine elevated, currently 42/1.80 Baseline creatinine is 1.1-1.50 Avoid nephrotoxic medications continue to trend labs Urine labs, indicate FEUrea indicated pre-renal trend urine output Seems to be acute kidney failure at this time Renal ultrasound (5) Acute hyponatremia: Code(s): E87.1 - Hypo-osmolality and hyponatremia Status: Acute Assessment and Plan: Na 124 at time of arrival Currently Na is 127 Raise by 6-8 per Q24H Most likely related to home medications Could be related to CHF Continue to trend await more recommendations from nephrology Nephrology has been consulted Stopped sertraline, Protonix, Lasix start fluid restriction Urine studies Na 31, Urea 331, Creatinine 75.8, FEUrea pre renal disease Cortisol 16.80 add sodium tabs 1 g b.i.d. Rising at a good level (6) CIRILO (obstructive sleep apnea): Code(s): G47.33 - Obstructive sleep apnea (adult) (pediatric) Status: Acute Assessment and Plan: Continue with cpap at home settings. Respiratory to manage
--- NOTE | 2023-01-04 09:30 | P.PNIM_ITS ---
Progress Note: A&P Assessment and Plan (1) Severe sepsis: Code(s): A41.9 - Sepsis, unspecified organism; R65.20 - Severe sepsis without septic shock Status: Acute Assessment and Plan: * SIRS criteria met with leukocytosis of 13.4, tachycardia with heart rate of 116, tachypnea with RR being 22-24 * Meets severe sepsis with hypotension, acute on chronic respiratory failure with SPO2 of 85% and INR of 1.5 * source of infection respiratory in nature * Lactic acid 0.7 * Blood cultures NGTD * Sputum culture showed normal marie * LR given in the ED * cautious hydration with Chronic CHF * IV antibiotic started in ED and continued with azithromycin and Ceftriaxone * Await culture results * Adjust therapy with culture findings * trend labs (2) Acute and chronic respiratory failure: Qualifiers: Respiratory failure complication: hypoxia Qualified Code(s): J96.21 - Acute and chronic respiratory failure with hypoxia Code(s): J96.20 - Acute and chronic respiratory failure, unspecified whether with hypoxia or hypercapnia Status: Acute Assessment and Plan: * Presented to the ED with complaints of worsening shortness of breath * chronically on oxygen at 2 L per nasal cannula at home, however was noted to be sating 85% * vital signs appear to be more stable * Chest CTA shows mucous plugging, atelectasis, and Tracheobronchomalacia * Could be secondary to PNA or COPD * Just recently recovered from COVID * Continue neb treatments * Stop Pulmozyme nebs, completed 48 hours of therapy * sputum culture showed normal marie * wean oxygen to maintain saturation >90% * Worse today, give one dose of lasix (3) Pneumonia: Qualifiers: Laterality: bilateral Lung location: unspecified part of lung Pneumonia type: due to unspecified organism Qualified Code(s): J18.9 - Pneumonia, unspecified organism Code(s): J18.9 - Pneumonia, unspecified organism Status: Acute Assessment and Plan: * Presented to the ED with complaints of increased shortness of breath, increased green sputum production * Chronically on 2LNC * Chest xray shows atelectasis * CTA shows bilateral mucous plugging and atelectasis * Continue supplemental oxygen, wean to maintain saturations >90% * Continue ceftriaxone day 6 * azithromycin completed 5 day course * Trend respiratory status * Sputum culture normal marie * Continue breathing treatments * Adjust antibiotics to culture results * trend labs * WBC trending down, currently at 7.7 (4) Chronic kidney disease, stage III (moderate): Qualifiers: Chronic kidney disease stage 3 subtype: stage 3b (GFR 30-44) Qualified Code(s): N18.32 - Chronic kidney disease, stage 3b Code(s): N18.30 - Chronic kidney disease, stage 3 unspecified Status: Chronic Assessment and Plan: * BUN/Creatinine elevated, currently 42/1.80 * Baseline creatinine is 1.1-1.50 * Avoid nephrotoxic medications * continue to trend labs * Urine labs, indicate FEUrea indicated pre-renal * trend urine output * Seems to be acute kidney failure at this time * Renal ultrasound (5) Acute hyponatremia: Code(s): E87.1 - Hypo-osmolality and hyponatremia Status: Acute Assessment and Plan: * Na 124 at time of arrival * Currently Na is 127 * Raise by 6-8 per Q24H * Most likely related to home medications * Could be related to CHF * Continue to trend
--- NOTE | 2023-01-04 10:31 | P.PNNP_ITS ---
Progress Note: A&P Assessment and Plan (1) Hyponatremia: Code(s): E87.1 - Hypo-osmolality and hyponatremia Status: Acute Assessment and Plan: * acute * sodium normal ~ 6 months ago * however, appears to have had issues with this in the past (August 2019) * multiple risk factors for low sodium: * lung disease (COPD) * known history of CHF * known history of CKD * recent COVID infection * medications (diuretics, SSRI, PPI) * acute pneumonia * suspect acute respiratory infection may have precipitated this issue * just recently stopped lasix, PPI, and SSRI * on fluid restriction * evaluation to date: * urine electrolytes suggest pre-renal azotemia * TSH and cortisol level okay * SPEP, UPEP, and serum/urine osmolality pending * off IVFs and on salt tablets * hopefully, salt tabs will only be needed temporarily * follow trend of repeat sodium levels (2) DAYDAY (acute kidney injury): Code(s): N17.9 - Acute kidney failure, unspecified Status: Acute Assessment and Plan: * improvement noted * multifactorial: * prerenal factors * acute infection * early sepsis (?) * contrast (CTA on chest on 12/30/22) * diuretic + FERNANDO-I use in this context * off of IVFs * repeat labs and follow UOP (3) Chronic kidney disease, stage III (moderate): Qualifiers: Chronic kidney disease stage 3 subtype: stage 3b (GFR 30-44) Qualified Code(s): N18.32 - Chronic kidney disease, stage 3b Code(s): N18.30 - Chronic kidney disease, stage 3 unspecified Status: Chronic Assessment and Plan: * basline creatinine runs ~ 1.1 - 1.6mg/dl in the last few years * this cause her to fluctuate between CKD stage 3A and stage 3B * presumably due to her DM, HTN, vascular disease, COPD, and age-related change (4) Acute and chronic respiratory failure: Qualifiers: Respiratory failure complication: hypoxia Qualified Code(s): J96.21 - Acute and chronic respiratory failure with hypoxia Code(s): J96.20 - Acute and chronic respiratory failure, unspecified whether with hypoxia or hypercapnia Status: Acute Assessment and Plan: * secondary #5 on top of her known COPD/CIRILO and possible recent COVID infection * chronically on 2L per NC but hypoxic even with this on presentation * CTA of chest with mucous plugging, atelectasis, and tracheobronchomalacia * continue nebs, pulmozyme, and antibiotics * wean oxygen as tolerated (5) Pneumonia: Qualifiers: Laterality: bilateral Lung location: unspecified part of lung Pneumo beverley type: due to unspecified organism Qualified Code(s): J18.9 - Pneumonia, unspecified organism Code(s): J18.9 - Pneumonia, unspecified organism Status: Acute Assessment and Plan: * suspected given clinical history * imaging studies noted * culture data reviewed * on antibiotics * follow WBC and clinical exam (6) Essential (primary) hypertension: Code(s): I10 - Essential (primary) hypertension Status: Chronic Assessment and Plan: * reasonable control at this time * follow trend of hemodynamics (7) Type 2 diabetes mellitus treated with insulin: Code(s): E11.9 - Type 2 diabetes mellitus without complications; Z79.4 - long-term (current) use of insulin Status: Chronic Assessment and Plan: * follow accuchecks * glycemic control per hospitalists Will continue to follow. Subjective Date/time seen: 01/04/23 10:31 Int
--- NOTE | 2023-01-04 10:31 | PM.PNNEP ---
Progress Note: A&P Assessment and Plan (1) Hyponatremia: Code(s): E87.1 - Hypo-osmolality and hyponatremia Status: Acute Assessment and Plan: acute sodium normal ~ 6 months ago however, appears to have had issues with this in the past (August 2019) multiple risk factors for low sodium: lung disease (COPD) known history of CHF known history of CKD recent COVID infection medications (diuretics, SSRI, PPI) acute pneumonia suspect acute respiratory infection may have precipitated this issue just recently stopped lasix, PPI, and SSRI on fluid restriction evaluation to date: urine electrolytes suggest pre-renal azotemia TSH and cortisol level okay SPEP, UPEP, and serum/urine osmolality pending off IVFs and on salt tablets hopefully, salt tabs will only be needed temporarily follow trend of repeat sodium levels (2) DAYDAY (acute kidney injury): Code(s): N17.9 - Acute kidney failure, unspecified Status: Acute Assessment and Plan: improvement noted multifactorial: prerenal factors acute infection early sepsis (?) contrast (CTA on chest on 12/30/22) diuretic + FERNANDO-I use in this context off of IVFs repeat labs and follow UOP (3) Chronic kidney disease, stage III (moderate): Qualifiers: Chronic kidney disease stage 3 subtype: stage 3b (GFR 30-44) Qualified Code(s): N18.32 - Chronic kidney disease, stage 3b Code(s): N18.30 - Chronic kidney disease, stage 3 unspecified Status: Chronic Assessment and Plan: basline creatinine runs ~ 1.1 - 1.6mg/dl in the last few years this cause her to fluctuate between CKD stage 3A and stage 3B presumably due to her DM, HTN, vascular disease, COPD, and age-related change (4) Acute and chronic respiratory failure: Qualifiers: Respiratory failure complication: hypoxia Qualified Code(s): J96.21 - Acute and chronic respiratory failure with hypoxia Code(s): J96.20 - Acute and chronic respiratory failure, unspecified whether with hypoxia or hypercapnia Status: Acute Assessment and Plan: secondary #5 on top of her known COPD/CIRILO and possible recent COVID infection chronically on 2L per NC but hypoxic even with this on presentation CTA of chest with mucous plugging, atelectasis, and tracheobronchomalacia continue nebs, pulmozyme, and antibiotics wean oxygen as tolerated (5) Pneumonia: Qualifiers: Laterality: bilateral Lung location: unspecified part of lung Pneumonia type: due to unspecified organism Qualified Code(s): J18.9 - Pneumonia, unspecified organism Code(s): J18.9 - Pneumonia, unspecified organism Status: Acute Assessment and Plan: suspected given clinical history imaging studies noted culture data reviewed on antibiotics follow WBC and clinical exam (6) Essential (primary) hypertension: Code(s): I10 - Essential (primary) hypertension Status: Chronic Assessment and Plan: reasonable control at this time follow trend of hemodynamics (7) Type 2 diabetes mellitus treated with insulin: Code(s): E11.9 - Type 2 diabetes mellitus without complications; Z79.4 - group home (current) use of insulin Status: Chronic Assessment and Plan: follow accuchecks glycemic control per hospitalists Will continue to follow. Subjective Date/time seen: 01/04/23 10:31 Interval history: Follow-up for hyponatremia and acute kidney injury on top of chronic kidney disease. She appears to be doing better this morning at the time of my visit; breathing and respiratory status have improved since admission; no apparent distress noted; tolerating salt tabs with slow/steady improvement in sodium level; renal function relatively stable if not with slight improvement; no acute issues/events overnight or earlier this AM. Exam Narrative: General: ill appearing fem
[2023-01-04] MEDS: IPRATROPIUM BR 0.02% INH SOLN 0.5 MG/2.5 ML VIAL INHALATION ×2 (10:54→20:30)
[2023-01-04] MEDS: LEVALBUTEROL NEB 1.25 MG/3 ML INHALATION ×2 (10:54→20:30)
[2023-01-04 12:09] LABS: Glucose Point of Care 102 mg/dl (65-105)
[2023-01-04] MEDS: AMOXICILLIN/CLAVULANATE K 875-125 MG TAB 1 TABLET PO ×2 (14:07→20:13)
--- NOTE | 2023-01-04 16:25 | PCRCNOTE ---
past time of scheduled administration. see next scheduled administration.
[2023-01-04 17:20] LABS: Glucose Point of Care 113 mg/dl (65-105)
[2023-01-04 19:59] LABS: Glucose Point of Care 154 mg/dl (65-105)
[2023-01-04] MEDS: INSULIN GLARGINE (*BKC) 100 UNITS/ML 42 UNITS SUB-Q (20:13)
[2023-01-04] MEDS: rOPINIRole HCL 1 MG TABLET 4 MG PO (20:13)
[2023-01-05] VITALS (13 sets, daily range): BP systolic 103–126; BP diastolic 44–66; PULSE 76–93; RESP 16–20; TEMP 36.4–36.8; O2SAT 91–100
[2023-01-05 05:58] LABS: Basophils Absolute Auto 0.1 K/mm3 (0.0-0.1); Basophils Percent Auto 0.5 % (0.2-1.2); Eosinophils Absolute Auto 0.4 K/mm3 (0-0.3); Hematocrit 31.6 % (37.0-47.0); Hemoglobin 10.1 g/dL (12.0-15.0); Immature Granulocyte Absolute 0.51 K/mm3 (0.00-0.031); Immature Granulocyte Percent A 5.5 % (0-0.5); Lymphocytes Absolute Auto 0.71 K/mm3 (0.9-3.2); Lymphocytes Percent Auto 7.6 % (18.3-44.2); Mean Corpuscular Hemoglobin 29.1 pg (26-34); Mean Corpuscular Volume 91.1 fl (80-100); Mean Platelet Volume 9.4 fl (7.4-10.4); Monocytes Absolute Auto 0.7 K/mm3 (0.1-0.6); Monocytes Percent Auto 7.3 % (2.6-8.5); Neutrophils Percent Auto 75.1 % (45.5-73.1); Platelet Count Result 266 k/mm3 (150-375); Red Blood Count 3.47 M/mm3 (4.2-5.4); White Blood Count 9.3 K/mm3 (4.5-10.0)
[2023-01-05 06:14] LABS: Alanine Aminotransferase 16 U/L (6-35); Alkaline Phosphatase 86 U/L (38-126); Anion Gap 5 mmol/L (8-16); Aspartate Amino Transferase 26 U/L (14-36); Bilirubin,Total 0.4 mg/dL (0.2-1.3); Blood Urea Nitrogen 44 mg/dL (7-17); Calcium 8.4 mg/dL (8.4-10.2); Carbon Dioxide 28 mmol/L (22-30); Chloride 97 mmol/L (98-107); Estimated CRCL calculation 36 ml/min; Estimated Glomerular Filt Rate 26; Glucose 82 mg/dL (65-110); Magnesium 2.1 mg/dL (1.6-2.3); Potassium 5.1 mmol/L (3.4-5.0); Sodium 130 mmol/L (137-145)
[2023-01-05] MEDS: LEVALBUTEROL NEB 1.25 MG/3 ML INHALATION ×3 (06:58→20:05)
[2023-01-05] MEDS: IPRATROPIUM BR 0.02% INH SOLN 0.5 MG/2.5 ML VIAL INHALATION ×3 (06:58→20:05)
[2023-01-05] MEDS: SODIUM CHLORIDE 1 GM TABLET PO ×2 (08:48→17:27)
[2023-01-05] MEDS: MIRABEGRON 25 MG ER TABLET PO (08:48)
[2023-01-05] MEDS: APIXABAN 2.5 MG TABLET PO ×2 (08:48→22:00)
[2023-01-05] MEDS: AMOXICILLIN/CLAVULANATE K 875-125 MG TAB 1 TABLET PO ×2 (08:48→22:00)
[2023-01-05] MEDS: ATORVASTATIN 40 MG TABLET 80 MG PO (08:48)
[2023-01-05] MEDS: BENZONATATE 100 MG CAPSULE 200 MG PO ×3 (08:48→17:27)
[2023-01-05] MEDS: allopurinoL 100 MG TABLET PO ×2 (08:48→22:00)
[2023-01-05] MEDS: busPIRone HCL 2.5 MG TABLET PO ×2 (08:48→17:27)
[2023-01-05] MEDS: GABAPENTIN 300 MG CAPSULE PO ×3 (08:49→17:27)
[2023-01-05] MEDS: busPIRone HCL 5 MG TABLET PO ×2 (08:49→17:27)
[2023-01-05] MEDS: TOLNAFTATE 1% POWDER 45 GM BTL 1 APPLIC TOPICAL ×2 (08:50→22:00)
[2023-01-05] MEDS: GLUCOSE ORAL GEL 15 GM OF GLUCSE IN 37.5 GM TUBE PO (08:55)
[2023-01-05 09:00] LABS: Glucose Point of Care 55 mg/dl (65-105)
[2023-01-05 10:14] LABS: Glucose Point of Care 115 mg/dl (65-105)
[2023-01-05 10:14] LABS: Glucose Point of Care 63 mg/dl (65-105)
[2023-01-05] MEDS: INSULIN GLARGINE (*BKC) 100 UNITS/ML 28 UNITS SUB-Q (10:20)
[2023-01-05] MEDS: FLUTICASONE PROPIONATE 0.05% NA SPR 16 GM BTL (*BKC) 1 SPRAY NASAL (10:20)
--- NOTE | 2023-01-05 10:45 | P.PNNP_ITS ---
Progress Note: A&P Assessment and Plan (1) Hyponatremia: Code(s): E87.1 - Hypo-osmolality and hyponatremia Status: Acute Assessment and Plan: * slow improvement noted * acute * sodium normal ~ 6 months ago * however, appears to have had issues with this in the past (August 2019) * multiple risk factors for low sodium: * lung disease (COPD) * known history of CHF * known history of CKD * recent COVID infection * medications (diuretics, SSRI, PPI) * acute pneumonia * suspect acute respiratory infection may have precipitated this issue * just recently stopped lasix, PPI, and SSRI * on fluid restriction * evaluation to date: * urine electrolytes suggest pre-renal azotemia * TSH and cortisol level okay * SPEP, UPEP, and serum/urine osmolality pending * off IVFs and on salt tablets * hopefully, salt tabs will only be needed temporarily * consider weaning closer to discharge * follow trend of repeat sodium levels (2) DAYDAY (acute kidney injury): Code(s): N17.9 - Acute kidney failure, unspecified Status: Acute Assessment and Plan: * some improvement noted * multifactorial: * prerenal factors * acute infection * early sepsis (?) * contrast (CTA on chest on 12/30/22) * diuretic + FERNANDO-I use in this context * evaluation to date: * renal ultrasound noted * urine electrolyte pre-renal * moderate proteinuria (870mg) * off of IVFs * repeat labs and follow UOP (3) Chronic kidney disease, stage III (moderate): Qualifiers: Chronic kidney disease stage 3 subtype: stage 3b (GFR 30-44) Qualified Code(s): N18.32 - Chronic kidney disease, stage 3b Code(s): N18.30 - Chronic kidney disease, stage 3 unspecified Status: Chronic Assessment and Plan: * basline creatinine runs ~ 1.1 - 1.6mg/dl in the last few years * this cause her to fluctuate between CKD stage 3A and stage 3B * presumably due to her DM, HTN, vascular disease, COPD, and age-related change (4) Acute and chronic respiratory failure: Qualifiers: Respiratory failure complication: hypoxia Qualified Code(s): J96.21 - Acute and chronic respiratory failure with hypoxia Code(s): J96.20 - Acute and chronic respiratory failure, unspecified whether with hypoxia or hypercapnia Status: Acute Assessment and Plan: * secondary #5 on top of her known COPD/CIRILO and possible recent COVID infection * chronically on 2L per NC but hypoxic even with this on presentation * CTA of chest with mucous plugging, atelectasis, and tracheobronchomalacia * continue nebs, pulmozyme, and antibiotics * wean oxygen as tolerated (5) Pneumonia: Qualifiers: Pneumonia type: due to unspecified organism Laterality: bilateral Lung location: unspecified part of lung Qualified Code(s): J18.9 - Pneumonia, unspecified organism Code(s): J18.9 - Pneumonia, unspecified organism Status: Acute Assessment and Plan: * suspected given clinical history * imaging studies noted * culture data reviewed * on antibiotics * follow WBC and clinical exam (6) Essential (primary) hypertension: Code(s): I10 - Essential (primary) hypertension Status: Chronic Assessment and Plan: * reasonable control at this time * follow trend of hemodynamics (7) Type 2 diabetes mellitus treated with insulin: Code(s): E11.9 - Type 2 diabetes mellitus without complications; Z79.4 - [facility] (current) use of insulin Status: Chronic
--- NOTE | 2023-01-05 10:45 | PM.PNNEP ---
Progress Note: A&P Assessment and Plan (1) Hyponatremia: Code(s): E87.1 - Hypo-osmolality and hyponatremia Status: Acute Assessment and Plan: slow improvement noted acute sodium normal ~ 6 months ago however, appears to have had issues with this in the past (August 2019) multiple risk factors for low sodium: lung disease (COPD) known history of CHF known history of CKD recent COVID infection medications (diuretics, SSRI, PPI) acute pneumonia suspect acute respiratory infection may have precipitated this issue just recently stopped lasix, PPI, and SSRI on fluid restriction evaluation to date: urine electrolytes suggest pre-renal azotemia TSH and cortisol level okay SPEP, UPEP, and serum/urine osmolality pending off IVFs and on salt tablets hopefully, salt tabs will only be needed temporarily consider weaning closer to discharge follow trend of repeat sodium levels (2) DAYDAY (acute kidney injury): Code(s): N17.9 - Acute kidney failure, unspecified Status: Acute Assessment and Plan: some improvement noted multifactorial: prerenal factors acute infection early sepsis (?) contrast (CTA on chest on 12/30/22) diuretic + FERNANDO-I use in this context evaluation to date: renal ultrasound noted urine electrolyte pre-renal moderate proteinuria (870mg) off of IVFs repeat labs and follow UOP (3) Chronic kidney disease, stage III (moderate): Qualifiers: Chronic kidney disease stage 3 subtype: stage 3b (GFR 30-44) Qualified Code(s): N18.32 - Chronic kidney disease, stage 3b Code(s): N18.30 - Chronic kidney disease, stage 3 unspecified Status: Chronic Assessment and Plan: basline creatinine runs ~ 1.1 - 1.6mg/dl in the last few years this cause her to fluctuate between CKD stage 3A and stage 3B presumably due to her DM, HTN, vascular disease, COPD, and age-related change (4) Acute and chronic respiratory failure: Qualifiers: Respiratory failure complication: hypoxia Qualified Code(s): J96.21 - Acute and chronic respiratory failure with hypoxia Code(s): J96.20 - Acute and chronic respiratory failure, unspecified whether with hypoxia or hypercapnia Status: Acute Assessment and Plan: secondary #5 on top of her known COPD/CIRILO and possible recent COVID infection chronically on 2L per NC but hypoxic even with this on presentation CTA of chest with mucous plugging, atelectasis, and tracheobronchomalacia continue nebs, pulmozyme, and antibiotics wean oxygen as tolerated (5) Pneumonia: Qualifiers: Pneumonia type: due to unspecified organism Laterality: bilateral Lung location: unspecified part of lung Qualified Code(s): J18.9 - Pneumonia, unspecified organism Code(s): J18.9 - Pneumonia, unspecified organism Status: Acute Assessment and Plan: suspected given clinical history imaging studies noted culture data reviewed on antibiotics follow WBC and clinical exam (6) Essential (primary) hypertension: Code(s): I10 - Essential (primary) hypertension Status: Chronic Assessment and Plan: reasonable control at this time follow trend of hemodynamics (7) Type 2 diabetes mellitus treated with insulin: Code(s): E11.9 - Type 2 diabetes mellitus without complications; Z79.4 - [employer] (current) use of insulin Status: Chronic Assessment and Plan: follow accuchecks glycemic control per hospitalists Will continue to follow. Subjective Date/time seen: 01/05/23 10:45 Interval history: Follow-up for hyponatremia and acute kidney injury on top of chronic kidney disease. Continues to make slow and steady progress in general; breathing/respiratory status stable if not better although she mentions that her cough seems to precipitate her shortness of breath; renal function remains stable (but still
[2023-01-05 12:17] LABS: Glucose Point of Care 138 mg/dl (65-105)
--- NOTE | 2023-01-05 14:15 | P.PNIM_ITS ---
Progress Note: A&P Assessment and Plan (1) Severe sepsis: Code(s): A41.9 - Sepsis, unspecified organism; R65.20 - Severe sepsis without septic shock Status: Acute Assessment and Plan: * SIRS criteria met with leukocytosis of 13.4, tachycardia with heart rate of 116, tachypnea with RR being 22-24 * Meets severe sepsis with hypotension, acute on chronic respiratory failure with SPO2 of 85% and INR of 1.5 * source of infection respiratory in nature * Lactic acid 0.7 * Blood cultures NGTD * Sputum culture showed normal marie * LR given in the ED * cautious hydration with Chronic CHF * IV antibiotic started in ED and continued with azithromycin and Ceftriaxone, changed to augmentin * Await culture results * Adjust therapy with culture findings * trend labs * Resolved (2) Acute and chronic respiratory failure: Qualifiers: Respiratory failure complication: hypoxia Qualified Code(s): J96.21 - Acute and chronic respiratory failure with hypoxia Code(s): J96.20 - Acute and chronic respiratory failure, unspecified whether with hypoxia or hypercapnia Status: Acute Assessment and Plan: * Presented to the ED with complaints of worsening shortness of breath * chronically on oxygen at 2 L per nasal cannula at home, however was noted to be sating 85% * vital signs appear to be more stable * Chest CTA shows mucous plugging, atelectasis, and Tracheobronchomalacia * Could be secondary to PNA or COPD * Just recently recovered from COVID * Continue neb treatments * Stop Pulmozyme nebs, completed 48 hours of therapy * sputum culture showed normal marie * wean oxygen to maintain saturation >90% * Worse today * CXR showed clear lungs * could be at baseline (3) Pneumonia: Qualifiers: Laterality: bilateral Lung location: unspecified part of lung Pneumonia type: due to unspecified organism Qualified Code(s): J18.9 - Pneumonia, unspecified organism Code(s): J18.9 - Pneumonia, unspecified organism Status: Acute Assessment and Plan: * Presented to the ED with complaints of increased shortness of breath, increased green sputum production * Chronically on 2LNC * Chest xray shows atelectasis * CTA shows bilateral mucous plugging and atelectasis * Continue supplemental oxygen, wean to maintain saturations >90% * Continue ceftriaxone day 6, changed to Augmentin for 7 days total, should be done today * azithromycin completed 5 day course * Trend respiratory status * Sputum culture normal marie * Continue breathing treatments * Adjust antibiotics to culture results * trend labs * WBC trending down, currently at 9.3 (4) Chronic kidney disease, stage III (moderate): Qualifiers: Chronic kidney disease stage 3 subtype: stage 3b (GFR 30-44) Qualified Code(s): N18.32 - Chronic kidney disease, stage 3b Code(s): N18.30 - Chronic kidney disease, stage 3 unspecified Status: Chronic Assessment and Plan: * BUN/Creatinine elevated, currently 44/1.90 * Baseline creatinine is 1.1-1.50 * Avoid nephrotoxic medications * continue to trend labs * Urine labs, indicate FEUrea indicated pre-renal * trend urine output * Seems to be acute kidney failure at this time * Renal ultrasound (5) Acute hyponatremia: Code(s): E87.1 - Hypo-osmolality and hyponatremia Status: Acute Assessment and Plan: * Na 124 at time of arrival * Currently
--- NOTE | 2023-01-05 14:15 | PM.IMPN ---
Progress Note: A&P Assessment and Plan (1) Severe sepsis: Code(s): A41.9 - Sepsis, unspecified organism; R65.20 - Severe sepsis without septic shock Status: Acute Assessment and Plan: SIRS criteria met with leukocytosis of 13.4, tachycardia with heart rate of 116, tachypnea with RR being 22-24 Meets severe sepsis with hypotension, acute on chronic respiratory failure with SPO2 of 85% and INR of 1.5 source of infection respiratory in nature Lactic acid 0.7 Blood cultures NGTD Sputum culture showed normal marie LR given in the ED cautious hydration with Chronic CHF IV antibiotic started in ED and continued with azithromycin and Ceftriaxone, changed to augmentin Await culture results Adjust therapy with culture findings trend labs Resolved (2) Acute and chronic respiratory failure: Qualifiers: Respiratory failure complication: hypoxia Qualified Code(s): J96.21 - Acute and chronic respiratory failure with hypoxia Code(s): J96.20 - Acute and chronic respiratory failure, unspecified whether with hypoxia or hypercapnia Status: Acute Assessment and Plan: Presented to the ED with complaints of worsening shortness of breath chronically on oxygen at 2 L per nasal cannula at home, however was noted to be sating 85% vital signs appear to be more stable Chest CTA shows mucous plugging, atelectasis, and Tracheobronchomalacia Could be secondary to PNA or COPD Just recently recovered from COVID Continue neb treatments Stop Pulmozyme nebs, completed 48 hours of therapy sputum culture showed normal marie wean oxygen to maintain saturation >90% Worse today CXR showed clear lungs could be at baseline (3) Pneumonia: Qualifiers: Laterality: bilateral Lung location: unspecified part of lung Pneumonia type: due to unspecified organism Qualified Code(s): J18.9 - Pneumonia, unspecified organism Code(s): J18.9 - Pneumonia, unspecified organism Status: Acute Assessment and Plan: Presented to the ED with complaints of increased shortness of breath, increased green sputum production Chronically on 2LNC Chest xray shows atelectasis CTA shows bilateral mucous plugging and atelectasis Continue supplemental oxygen, wean to maintain saturations >90% Continue ceftriaxone day 6, changed to Augmentin for 7 days total, should be done today azithromycin completed 5 day course Trend respiratory status Sputum culture normal marie Continue breathing treatments Adjust antibiotics to culture results trend labs WBC trending down, currently at 9.3 (4) Chronic kidney disease, stage III (moderate): Qualifiers: Chronic kidney disease stage 3 subtype: stage 3b (GFR 30-44) Qualified Code(s): N18.32 - Chronic kidney disease, stage 3b Code(s): N18.30 - Chronic kidney disease, stage 3 unspecified Status: Chronic Assessment and Plan: BUN/Creatinine elevated, currently 44/1.90 Baseline creatinine is 1.1-1.50 Avoid nephrotoxic medications continue to trend labs Urine labs, indicate FEUrea indicated pre-renal trend urine output Seems to be acute kidney failure at this time Renal ultrasound (5) Acute hyponatremia: Code(s): E87.1 - Hypo-osmolality and hyponatremia Status: Acute Assessment and Plan: Na 124 at time of arrival Currently Na is 130 Raise by 6-8 per Q24H Most likely related to home medications Could be related to CHF Continue to trend await more recommendations from nephrology Nephrology has been consulted Stopped sertraline, Protonix, Lasix start fluid restriction Urine studies Na 31, Urea 331, Creatinine 75.8, FEUrea pre renal disease Cortisol 16.80 add sodium tabs 1 g b.i.d. Rising at a good level (6) CIRILO (obstructive sleep apnea): Code(s): G47.33 - Obstructive sleep apnea (adult) (pediatric)
[2023-01-05 16:17] LABS: Osmolality, Urine 282 mOsm/kg (50-1200)
[2023-01-05 17:05] LABS: Glucose Point of Care 95 mg/dl (65-105)
[2023-01-05] MEDS: guaiFENesin 200 MG/10 ML UDC 600 MG PO (17:27)
[2023-01-05] MEDS: rOPINIRole HCL 1 MG TABLET 4 MG PO (22:00)
[2023-01-06] VITALS (12 sets, daily range): BP systolic 111–131; BP diastolic 52–57; PULSE 79–105; RESP 18–20; TEMP 36.4–36.8; O2SAT 97–100
[2023-01-06] MEDS: IPRATROPIUM BR 0.02% INH SOLN 0.5 MG/2.5 ML VIAL INHALATION ×3 (02:00→14:47)
[2023-01-06] MEDS: LEVALBUTEROL NEB 1.25 MG/3 ML INHALATION ×3 (02:00→14:48)
[2023-01-06 04:11] LABS: Glucose Point of Care 136 mg/dl (65-105)
[2023-01-06 06:19] LABS: Basophils Absolute Auto 0.1 K/mm3 (0.0-0.1); Basophils Percent Auto 0.7 % (0.2-1.2); Eosinophils Absolute Auto 0.4 K/mm3 (0-0.3); Eosinophils Percent Auto 3.6 % (0-4.4); Hematocrit 31.5 % (37.0-47.0); Hemoglobin 9.9 g/dL (12.0-15.0); Immature Granulocyte Absolute 0.52 K/mm3 (0.00-0.031); Immature Granulocyte Percent A 5.2 % (0-0.5); Lymphocytes Absolute Auto 0.75 K/mm3 (0.9-3.2); Lymphocytes Percent Auto 7.5 % (18.3-44.2); Mean Corpuscular HGB Conc 31.4 g/dl (32-36); Mean Corpuscular Hemoglobin 28.9 pg (26-34); Mean Corpuscular Volume 91.8 fl (80-100); Monocytes Absolute Auto 0.7 K/mm3 (0.1-0.6); Monocytes Percent Auto 6.7 % (2.6-8.5); Neutrophils Absolute Auto 7.6 K/mm3 (1.3-6.7); Neutrophils Percent Auto 76.3 % (45.5-73.1); Platelet Count Result 241 k/mm3 (150-375); Red Blood Count 3.43 M/mm3 (4.2-5.4); Red Cell Distribution Width 14.1 % (11.5-14.5)
--- NOTE | 2023-01-06 06:28 | PC.NURSE ---
Computers where down from [id number] 01/05/23 until 0652 01/06/23 please refer to down time documentation - paper forms.
[2023-01-06] MEDS: INSULIN GLARGINE (*BKC) 100 UNITS/ML 42 UNITS SUB-Q (06:34)
[2023-01-06 06:41] LABS: Alanine Aminotransferase 18 U/L (6-35); Albumin Level 3.1 g/dL (3.5-5.1); Alkaline Phosphatase 100 U/L (38-126); Anion Gap -1 mmol/L (8-16); Aspartate Amino Transferase 30 U/L (14-36); Bilirubin,Total 0.4 mg/dL (0.2-1.3); Blood Urea Nitrogen 42 mg/dL (7-17); Calcium 8.6 mg/dL (8.4-10.2); Carbon Dioxide 34 mmol/L (22-30); Chloride 99 mmol/L (98-107); Estimated CRCL calculation 42 ml/min; Estimated Glomerular Filt Rate 32; Glucose 114 mg/dL (65-110); Potassium 5.9 mmol/L (3.4-5.0); Sodium 132 mmol/L (137-145)
[2023-01-06] MEDS: SODIUM ZIRCONIUM CYCLOSILICATE 10 GM POWD.PACK PO (07:43)
[2023-01-06 08:50] LABS: Glucose Point of Care 86 mg/dl (65-105)
[2023-01-06] MEDS: ATORVASTATIN 40 MG TABLET 80 MG PO (09:53)
[2023-01-06] MEDS: busPIRone HCL 2.5 MG TABLET PO ×2 (09:53→17:10)
[2023-01-06] MEDS: APIXABAN 2.5 MG TABLET PO ×2 (09:53→21:40)
[2023-01-06] MEDS: busPIRone HCL 5 MG TABLET PO ×2 (09:53→17:10)
[2023-01-06] MEDS: allopurinoL 100 MG TABLET PO ×2 (09:53→21:40)
[2023-01-06] MEDS: SODIUM CHLORIDE 1 GM TABLET PO ×2 (09:53→17:11)
[2023-01-06] MEDS: GABAPENTIN 300 MG CAPSULE PO ×3 (09:54→17:10)
[2023-01-06] MEDS: FLUTICASONE PROPIONATE 0.05% NA SPR 16 GM BTL (*BKC) 1 SPRAY NASAL (09:54)
[2023-01-06] MEDS: MIRABEGRON 25 MG ER TABLET PO (09:54)
[2023-01-06] MEDS: TOLNAFTATE 1% POWDER 45 GM BTL 1 APPLIC TOPICAL ×2 (09:55→21:42)
[2023-01-06] MEDS: BENZONATATE 100 MG CAPSULE 200 MG PO ×3 (09:57→17:10)
[2023-01-06 12:15] LABS: Glucose Point of Care 162 mg/dl (65-105)
[2023-01-06] MEDS: INSULIN GLARGINE (*BKC) 100 UNITS/ML 28 UNITS SUB-Q (12:19)
--- NOTE | 2023-01-06 13:31 | PCCCNOTE ---
On 01/06/23, the student, [Lacy Carreon ], provided care and completed [facility] documentation on this patient. I have reviewed the student's documentation and agree with the findings.
--- NOTE | 2023-01-06 14:02 | PM.PNNEP ---
Progress Note: A&P Assessment and Plan (1) Hyponatremia: Code(s): E87.1 - Hypo-osmolality and hyponatremia Status: Acute Assessment and Plan: slow improvement noted acute sodium normal ~ 6 months ago however, appears to have had issues with this in the past (August 2019) multiple risk factors for low sodium: lung disease (COPD) known history of CHF known history of CKD recent COVID infection medications (diuretics, SSRI, PPI) acute pneumonia suspect acute respiratory infection may have precipitated this issue just recently stopped lasix, PPI, and SSRI on fluid restriction evaluation to date: urine electrolytes suggest pre-renal azotemia TSH and cortisol level okay SPEP, UPEP, and serum/urine osmolality pending off IVFs and on salt tablets hopefully, salt tabs will only be needed temporarily consider weaning closer to discharge follow trend of repeat sodium levels (2) Hyperkalemia: Code(s): E87.5 - Hyperkalemia Status: Acute Assessment and Plan: as noted by AM labs s/p medical management ([facility]) etiology not clear no culprit medications could be related to CKD (but renal function improving) was on K+ supplementals (as well as lasix) [employer] since 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 -- could have type 4 RTA which would predispose her to hyperkalemia (due to hypoaldo state) but as already mentioned, no previous issues with regard to hyperkalemia continue low K+ diet for now may benefit from resume lasix (without K+ supplements) to keep this issue in check (3) DAYDAY (acute kidney injury): Code(s): N17.9 - Acute kidney failure, unspecified Status: Acute Assessment and Plan: some improvement noted multifactorial: prerenal factors acute infection early sepsis (?) contrast (CTA on chest on 12/30/22) diuretic + FERNANDO-I use in this context evaluation to date: renal ultrasound noted urine electrolyte pre-renal moderate proteinuria (870mg) off of IVFs probably okay to restart diuretics repeat labs and follow UOP (4) Chronic kidney disease, stage III (moderate): Qualifiers: Chronic kidney disease stage 3 subtype: stage 3b (GFR 30-44) Qualified Code(s): N18.32 - Chronic kidney disease, stage 3b Code(s): N18.30 - Chronic kidney disease, stage 3 unspecified Status: Chronic Assessment and Plan: basline creatinine runs ~ 1.1 - 1.6mg/dl in the last few years this cause her to fluctuate between CKD stage 3A and stage 3B presumably due to her DM, HTN, vascular disease, COPD, and age-related change (5) Acute and chronic respiratory failure: Qualifiers: Respiratory failure complication: hypoxia Qualified Code(s): J96.21 - Acute and chronic respiratory failure with hypoxia Code(s): J96.20 - Acute and chronic respiratory failure, unspecified whether with hypoxia or hypercapnia Status: Acute Assessment and Plan: secondary #5 on top of her known COPD/CIRILO and possible recent COVID infection chronically on 2L per [place] but hypoxic even with this on presentation CTA of chest with mucous plugging, atelectasis, and tracheobronchomalacia continue nebs, pulmozyme, and antibiotics wean oxygen as tolerated (6) Pneumonia: Qualifiers: Pneumonia type: due to unspecified organism Laterality: bilateral Lung location: unspecified part of lung Qualified Code(s): J18.9 - Pneumonia, unspecified organism Code(s): J18.9 - Pneumonia, unspecified organism Status: Acute Assessment and Plan: suspected given clinical history imaging studies noted culture data reviewed on antibiotics follow WBC and clinical exam (7) Essential (primary) hypertension: Code(s): I10 - Essential (primary) hypertension Status: Chronic Assessment and Plan: reasonable control at this time follow trend of hemodynamics (8) Type 2 diabetes erin
--- NOTE | 2023-01-06 14:02 | P.PNNP_ITS ---
Progress Note: A&P Assessment and Plan (1) Hyponatremia: Code(s): E87.1 - Hypo-osmolality and hyponatremia Status: Acute Assessment and Plan: * slow improvement noted * acute * sodium normal ~ 6 months ago * however, appears to have had issues with this in the past (August 2019) * multiple risk factors for low sodium: * lung disease (COPD) * known history of CHF * known history of CKD * recent COVID infection * medications (diuretics, SSRI, PPI) * acute pneumonia * suspect acute respiratory infection may have precipitated this issue * just recently stopped lasix, PPI, and SSRI * on fluid restriction * evaluation to date: * urine electrolytes suggest pre-renal azotemia * TSH and cortisol level okay * SPEP, UPEP, and serum/urine osmolality pending * off IVFs and on salt tablets * hopefully, salt tabs will only be needed temporarily * consider weaning closer to discharge * follow trend of repeat sodium levels (2) Hyperkalemia: Code(s): E87.5 - Hyperkalemia Status: Acute Assessment and Plan: * as noted by AM labs * s/p medical management ([facility]) * etiology not clear * no culprit medications * could be related to CKD (but renal function improving) * 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 * since 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 -- could have type 4 RTA which would predispose her to hyperkalemia (due to hypoaldo state) * but as already mentioned, no previous issues with regard to hyperkalemia * continue low K+ diet for now * may benefit from resume lasix (without K+ supplements) to keep this issue in check (3) DAYDAY (acute kidney injury): Code(s): N17.9 - Acute kidney failure, unspecified Status: Acute Assessment and Plan: * some improvement noted * multifactorial: * prerenal factors * acute infection * early sepsis (?) * contrast (CTA on chest on 12/30/22) * diuretic + FERNANDO-I use in this context * evaluation to date: * renal ultrasound noted * urine electrolyte pre-renal * moderate proteinuria (870mg) * off of IVFs * probably okay to restart diuretics * repeat labs and follow UOP (4) Chronic kidney disease, stage III (moderate): Qualifiers: Chronic kidney disease stage 3 subtype: stage 3b (GFR 30-44) Qualified Code(s): N18.32 - Chronic kidney disease, stage 3b Code(s): N18.30 - Chronic kidney disease, stage 3 unspecified Status: Chronic Assessment and Plan: * basline creatinine runs ~ 1.1 - 1.6mg/dl in the last few years * this cause her to fluctuate between CKD stage 3A and stage 3B * presumably due to her DM, HTN, vascular disease, COPD, and age-related change (5) Acute and chronic respiratory failure: Qualifiers: Respiratory failure complication: hypoxia Qualified Code(s): J96.21 - Acute and chronic respiratory failure with hypoxia Code(s): J96.20 - Acute and chronic respiratory failure, unspecified whether with hypoxia or hypercapnia Status: Acute Assessment and Plan: * secondary #5 on top of her known COPD/CIRILO and possible recent COVID infection * chronically on 2L per [place] but hypoxic even with this on presentation * CTA of chest with mucous plugging, atelectasis, and tracheobronchomalacia * continue nebs, pulmozyme, and antibiotics * wean oxygen as tolerated (6) Pneumonia: Qualifiers: Pneumonia type: due to unspecified organism Laterality: bilateral Lung location: unspecified part of lung Qualified Code(s): J18.9 - Pneumonia, un
--- NOTE | 2023-01-06 16:02 | P.PNIM_ITS ---
Progress Note: A&P Assessment and Plan (1) Severe sepsis: Code(s): A41.9 - Sepsis, unspecified organism; R65.20 - Severe sepsis without septic shock Status: Resolved Assessment and Plan: Patient septic presentation evident by leukocytosis, tachycardia, tachypnea, hypotension * Source of infection is pneumonia * Leukocytosis, tachypnea, tachycardia resolved * Lactic acid within normal limits * Blood cultures negative to date * Patient was appropriately rehydrated with IV fluids * She has received appropriate antibiotics (2) Pneumonia: Qualifiers: Pneumonia type: due to unspecified organism Laterality: bilateral Lung location: unspecified part of lung Qualified Code(s): J18.9 - Pneumonia, unspecified organism Code(s): J18.9 - Pneumonia, unspecified organism Status: Acute Assessment and Plan: Presented to the ED with complaints of increased shortness of breath, increased green sputum production * CXR and CTA with findings of atelectasis, CTA showed bilateral mucus plugging * Patient has completed 7 day course of IV ceftriaxone/p.o. Augmentin and and 5 days of azithromycin * Respiratory status is stable at this time (3) Acute and chronic respiratory failure: Qualifiers: Respiratory failure complication: hypoxia Qualified Code(s): J96.21 - Acute and chronic respiratory failure with hypoxia Code(s): J96.20 - Acute and chronic respiratory failure, unspecified whether with hypoxia or hypercapnia Status: Acute Assessment and Plan: Worsened secondary to pneumonia * Currently maintaining adequate O2 sats on her baseline 2 L supplemental O2 * Patient recently recovered from COVID-19, likely worsening her respiratory sta tus * Continue nebs q.6 p.r.n. * Repeat CXR completed yesterday shows clear lungs (4) Chronic kidney disease, stage III (moderate): Qualifiers: Chronic kidney disease stage 3 subtype: stage 3b (GFR 30-44) Qualified Code(s): N18.32 - Chronic kidney disease, stage 3b Code(s): N18.30 - Chronic kidney disease, stage 3 unspecified Status: Chronic Assessment and Plan: Baseline creatinine appears to be 1.1-1.5 * Function is consistent with baseline at this time * Appreciate nephrology consultation * Renal ultrasound with no hydronephrosis and 3.5 cm left renal cyst * Continue to monitor BMP (5) Acute hyponatremia: Code(s): E87.1 - Hypo-osmolality and hyponatremia Status: Acute Assessment and Plan: Resolved. Sodium 132 today * Sodium corrected at appropriate rate * Continue sodium chloride tabs 1 g b.i.d. * Continue 1500 cc fluid restriction diet (6) CIRILO (obstructive sleep apnea): Code(s): G47.33 - Obstructive sleep apnea (adult) (pediatric) Status: Acute Assessment and Plan: Continue with cpap at home settings. (7) Essential (primary) hypertension: Code(s): I10 - Essential (primary) hypertension Status: Chronic Assessment and Plan: Blood pressures are stable. Last BP 118/84 * Patient was noted to be hypotensive on presentation * Lisinopril was held on admission. BP remaining stable off meds * Continue to trend * Appreciate nephrology assistance and recommendations (8) Type 2 diabetes mellitus treated with insulin: Code(s): E11.9 - Type 2 diabetes mellitus without complications; Z79.4 - custodial (current) use of insulin Status: Chronic Assessment and Plan: A1c is 7.7 * Continue Accu-Cheks, sliding scale
--- NOTE | 2023-01-06 16:02 | PM.IMPN ---
Progress Note: A&P Assessment and Plan (1) Severe sepsis: Code(s): A41.9 - Sepsis, unspecified organism; R65.20 - Severe sepsis without septic shock Status: Resolved Assessment and Plan: Patient septic presentation evident by leukocytosis, tachycardia, tachypnea, hypotension Source of infection is pneumonia Leukocytosis, tachypnea, tachycardia resolved Lactic acid within normal limits Blood cultures negative to date Patient was appropriately rehydrated with IV fluids She has received appropriate antibiotics (2) Pneumonia: Qualifiers: Pneumonia type: due to unspecified organism Laterality: bilateral Lung location: unspecified part of lung Qualified Code(s): J18.9 - Pneumonia, unspecified organism Code(s): J18.9 - Pneumonia, unspecified organism Status: Acute Assessment and Plan: Presented to the ED with complaints of increased shortness of breath, increased green sputum production CXR and CTA with findings of atelectasis, CTA showed bilateral mucus plugging Patient has completed 7 day course of IV ceftriaxone/p.o. Augmentin and and 5 days of azithromycin Respiratory status is stable at this time (3) Acute and chronic respiratory failure: Qualifiers: Respiratory failure complication: hypoxia Qualified Code(s): J96.21 - Acute and chronic respiratory failure with hypoxia Code(s): J96.20 - Acute and chronic respiratory failure, unspecified whether with hypoxia or hypercapnia Status: Acute Assessment and Plan: Worsened secondary to pneumonia Currently maintaining adequate O2 sats on her baseline 2 L supplemental O2 Patient recently recovered from COVID-19, likely worsening her respiratory status Continue nebs q.6 p.r.n. Repeat CXR completed yesterday shows clear lungs (4) Chronic kidney disease, stage III (moderate): Qualifiers: Chronic kidney disease stage 3 subtype: stage 3b (GFR 30-44) Qualified Code(s): N18.32 - Chronic kidney disease, stage 3b Code(s): N18.30 - Chronic kidney disease, stage 3 unspecified Status: Chronic Assessment and Plan: Baseline creatinine appears to be 1.1-1.5 Function is consistent with baseline at this time Appreciate nephrology consultation Renal ultrasound with no hydronephrosis and 3.5 cm left renal cyst Continue to monitor BMP (5) Acute hyponatremia: Code(s): E87.1 - Hypo-osmolality and hyponatremia Status: Acute Assessment and Plan: Resolved. Sodium 132 today Sodium corrected at appropriate rate Continue sodium chloride tabs 1 g b.i.d. Continue 1500 cc fluid restriction diet (6) CIRILO (obstructive sleep apnea): Code(s): G47.33 - Obstructive sleep apnea (adult) (pediatric) Status: Acute Assessment and Plan: Continue with cpap at home settings. (7) Essential (primary) hypertension: Code(s): I10 - Essential (primary) hypertension Status: Chronic Assessment and Plan: Blood pressures are stable. Last BP 118/84 Patient was noted to be hypotensive on presentation Lisinopril was held on admission. BP remaining stable off meds Continue to trend Appreciate nephrology assistance and recommendations (8) Type 2 diabetes mellitus treated with insulin: Code(s): E11.9 - Type 2 diabetes mellitus without complications; Z79.4 - penitentiary (current) use of insulin Status: Chronic Assessment and Plan: A1c is 7.7 Continue Accu-Cheks, sliding scale insulin, hypoglycemic protocol Continue home Lantus Monitor glucose trends (9) COPD (chronic obstructive pulmonary disease): Qualifiers: COPD type: COPD with acute lower respiratory infection Qualified Code(s): J44.0 - Chronic obstructive pulmonary disease with (acute) lower respiratory infection Code(s): J44.9 - Chronic obstructive pulmonary disease, unspecified Status: Acute Assessment and [place]
[2023-01-06 17:22] LABS: Glucose Point of Care 126 mg/dl (65-105)
[2023-01-06] MEDS: guaiFENesin 200 MG/10 ML UDC 600 MG PO (21:40)
[2023-01-06] MEDS: CALCIUM CARBONATE (TUMS) 500 MG (200 MG ELEMENTAL) PO (21:41)
[2023-01-06] MEDS: INSULIN GLARGINE (*BKC) 100 UNITS/ML 20 UNITS SUB-Q (21:41)
[2023-01-06] MEDS: rOPINIRole HCL 1 MG TABLET 4 MG PO (21:41)
[2023-01-06 21:48] LABS: Glucose Point of Care 136 mg/dl (65-105)
[2023-01-07] VITALS (11 sets, daily range): BP systolic 94–131; BP diastolic 40–61; PULSE 79–100; RESP 18–20; TEMP 36.3–37.2; O2SAT 91–98
[2023-01-07 06:01] LABS: Hematocrit 31.4 % (37.0-47.0); Hemoglobin 9.9 g/dL (12.0-15.0); Mean Corpuscular HGB Conc 31.5 g/dl (32-36); Mean Corpuscular Hemoglobin 29.1 pg (26-34); Mean Corpuscular Volume 92.4 fl (80-100); Mean Platelet Volume 9.2 fl (7.4-10.4); Platelet Count Result 261 k/mm3 (150-375); Red Cell Distribution Width 14.5 % (11.5-14.5); White Blood Count 11.3 K/mm3 (4.5-10.0)
[2023-01-07 06:18] LABS: Anion Gap 2 mmol/L (8-16); Blood Urea Nitrogen 37 mg/dL (7-17); Calcium 8.7 mg/dL (8.4-10.2); Carbon Dioxide 30 mmol/L (22-30); Chloride 101 mmol/L (98-107); Estimated CRCL calculation 51 ml/min; Estimated Glomerular Filt Rate 40; Glucose 96 mg/dL (65-110); Potassium 5.2 mmol/L (3.4-5.0); Sodium 133 mmol/L (137-145)
[2023-01-07 08:27] LABS: Glucose Point of Care 70 mg/dl (65-105)
[2023-01-07] MEDS: FLUTICASONE PROPIONATE 0.05% NA SPR 16 GM BTL (*BKC) 1 SPRAY NASAL (08:28)
[2023-01-07] MEDS: ATORVASTATIN 40 MG TABLET 80 MG PO (08:29)
[2023-01-07] MEDS: CALCIUM CARBONATE (TUMS) 500 MG (200 MG ELEMENTAL) PO ×2 (08:29→20:58)
[2023-01-07] MEDS: BENZONATATE 100 MG CAPSULE 200 MG PO ×3 (08:29→16:46)
[2023-01-07] MEDS: GABAPENTIN 300 MG CAPSULE PO ×3 (08:30→16:46)
[2023-01-07] MEDS: busPIRone HCL 2.5 MG TABLET PO ×2 (08:30→16:46)
[2023-01-07] MEDS: SODIUM CHLORIDE 1 GM TABLET PO ×2 (08:30→16:46)
[2023-01-07] MEDS: allopurinoL 100 MG TABLET PO ×2 (08:30→20:59)
[2023-01-07] MEDS: busPIRone HCL 5 MG TABLET PO ×2 (08:30→16:46)
[2023-01-07] MEDS: MIRABEGRON 25 MG ER TABLET PO (08:30)
[2023-01-07] MEDS: APIXABAN 2.5 MG TABLET PO ×2 (08:30→20:59)
[2023-01-07] MEDS: TOLNAFTATE 1% POWDER 45 GM BTL 1 APPLIC TOPICAL ×2 (08:31→21:00)
--- NOTE | 2023-01-07 09:42 | PCNWS ---
Weekly nutritional screen. Patient is tolerating current diet with adequate intake. No weight loss reported. Educated patient today on Potassium contents of foods. Handout give. No nutritional needs at this time.
[2023-01-07 12:16] LABS: Glucose Point of Care 116 mg/dl (65-105)
--- NOTE | 2023-01-07 13:28 | P.PNNP_ITS ---
Progress Note: A&P Assessment and Plan (1) Hyponatremia: Code(s): E87.1 - Hypo-osmolality and hyponatremia Status: Acute Assessment and Plan: * slow improvement noted * acute * sodium normal ~ 6 months ago * however, appears to have had issues with this in the past (August 2019) * multiple risk factors for low sodium: * lung disease (COPD) * known history of CHF * known history of CKD * recent COVID infection * medications (diuretics, SSRI, PPI) * acute pneumonia * suspect acute respiratory infection may have precipitated this issue * just recently stopped lasix, PPI, and SSRI * on fluid restriction * evaluation to date: * urine electrolytes suggest pre-renal azotemia * TSH and cortisol level okay * SPEP, UPEP, and serum/urine osmolality pending * off IVFs and on salt tablets * hopefully, salt tabs will only be needed temporarily * consider weaning closer or after discharge * follow trend of repeat sodium levels (2) Hyperkalemia: Code(s): E87.5 - Hyperkalemia Status: Acute Assessment and Plan: * as noted by AM labs * s/p medical management ([facility]) * etiology not clear * no culprit medications * could be related to CKD (but renal function improving) * 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 -- could have type 4 RTA which would predispose her to hyperkalemia (due to hypoaldo state) * CO2 level normal (but perhaps her COPD makes it look normal) * but as already mentioned, no previous issues with regard to hyperkalemia * continue low K+ diet for now * may benefit from resuming lasix (without K+ supplements) to keep this issue in check (3) DAYDAY (acute kidney injury): Code(s): N17.9 - Acute kidney failure, unspecified Status: Acute Assessment and Plan: * some improvement noted * multifactorial: * prerenal factors * acute infection * early sepsis (?) * contrast (CTA on chest on 12/30/22) * diuretic + FERNANDO-I use in this context * evaluation to date: * renal ultrasound noted * urine electrolyte pre-renal * moderate proteinuria (870mg) * CPK normal * off of IVFs * probably okay to restart diuretics * repeat labs and follow UOP (4) Chronic kidney disease, stage III (moderate): Qualifiers: Chronic kidney disease stage 3 subtype: stage 3b (GFR 30-44) Qualified Code(s): N18.32 - Chronic kidney disease, stage 3b Code(s): N18.30 - Chronic kidney disease, stage 3 unspecified Status: Chronic Assessment and Plan: * basline creatinine runs ~ 1.1 - 1.6mg/dl in the last few years * this cause her to fluctuate between CKD stage 3A and stage 3B * presumably due to her DM, HTN, vascular disease, COPD, and age-related change (5) Acute and chronic respiratory failure: Qualifiers: Respiratory failure complication: hypoxia Qualified Code(s): J96.21 - Acute and chronic respiratory failure with hypoxia Code(s): J96.20 - Acute and chronic respiratory failure, unspecified whether with hypoxia or hypercapnia Status: Acute Assessment and Plan: * secondary #5 on top of her known COPD/CIRILO and possible recent COVID infection * chronically on 2L per [place] but hypoxic even with this on presentation * CTA of chest with mucous plugging, atelectasis, and tracheobronchomalacia * continue nebs, pulmozyme, and antibiotics * wean oxygen as tolerated (6) Pneumonia: Qualifiers: Pneumonia type: due to unspecified organism Laterality
--- NOTE | 2023-01-07 13:28 | PM.PNNEP ---
Progress Note: A&P Assessment and Plan (1) Hyponatremia: Code(s): E87.1 - Hypo-osmolality and hyponatremia Status: Acute Assessment and Plan: slow improvement noted acute sodium normal ~ 6 months ago however, appears to have had issues with this in the past (August 2019) multiple risk factors for low sodium: lung disease (COPD) known history of CHF known history of CKD recent COVID infection medications (diuretics, SSRI, PPI) acute pneumonia suspect acute respiratory infection may have precipitated this issue just recently stopped lasix, PPI, and SSRI on fluid restriction evaluation to date: urine electrolytes suggest pre-renal azotemia TSH and cortisol level okay SPEP, UPEP, and serum/urine osmolality pending off IVFs and on salt tablets hopefully, salt tabs will only be needed temporarily consider weaning closer or after discharge follow trend of repeat sodium levels (2) Hyperkalemia: Code(s): E87.5 - Hyperkalemia Status: Acute Assessment and Plan: as noted by AM labs s/p medical management ([facility]) etiology not clear no culprit medications could be related to CKD (but renal function improving) 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+ 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 -- could have type 4 RTA which would predispose her to hyperkalemia (due to hypoaldo state) CO2 level normal (but perhaps her COPD makes it look normal) but as already mentioned, no previous issues with regard to hyperkalemia continue low K+ diet for now may benefit from resuming lasix (without K+ supplements) to keep this issue in check (3) DAYDAY (acute kidney injury): Code(s): N17.9 - Acute kidney failure, unspecified Status: Acute Assessment and Plan: some improvement noted multifactorial: prerenal factors acute infection early sepsis (?) contrast (CTA on chest on 12/30/22) diuretic + FERNANDO-I use in this context evaluation to date: renal ultrasound noted urine electrolyte pre-renal moderate proteinuria (870mg) CPK normal off of IVFs probably okay to restart diuretics repeat labs and follow UOP (4) Chronic kidney disease, stage III (moderate): Qualifiers: Chronic kidney disease stage 3 subtype: stage 3b (GFR 30-44) Qualified Code(s): N18.32 - Chronic kidney disease, stage 3b Code(s): N18.30 - Chronic kidney disease, stage 3 unspecified Status: Chronic Assessment and Plan: basline creatinine runs ~ 1.1 - 1.6mg/dl in the last few years this cause her to fluctuate between CKD stage 3A and stage 3B presumably due to her DM, HTN, vascular disease, COPD, and age-related change (5) Acute and chronic respiratory failure: Qualifiers: Respiratory failure complication: hypoxia Qualified Code(s): J96.21 - Acute and chronic respiratory failure with hypoxia Code(s): J96.20 - Acute and chronic respiratory failure, unspecified whether with hypoxia or hypercapnia Status: Acute Assessment and Plan: secondary #5 on top of her known COPD/CIRILO and possible recent COVID infection chronically on 2L per [place] but hypoxic even with this on presentation CTA of chest with mucous plugging, atelectasis, and tracheobronchomalacia continue nebs, pulmozyme, and antibiotics wean oxygen as tolerated (6) Pneumonia: Qualifiers: Pneumonia type: due to unspecified organism Laterality: bilateral Lung location: unspecified part of lung Qualified Code(s): J18.9 - Pneumonia, unspecified organism Code(s): J18.9 - Pneumonia, unspecified organism Status: Acute Assessment and Plan: suspected given clinical history imaging studies noted culture data reviewed on antibiotics follow WBC and clinical exam (7) Essential (primary) hypertension: Code(s): I10 - Essential (primary) hypertension Status: Chronic Assessment and Plan: mega
[2023-01-07 15:08] LABS: Albumin 2.7 g/dL (3.8-4.8); Alpha 1 Globulin 0.4 g/dL (0.2-0.3); Alpha 2 Globulin 0.8 g/dL (0.5-0.9); Beta 1 Globulin 0.4 g/dL (0.4-0.6); Gamma Globulin 0.8 g/dL (0.8-1.7); Protein, Total 5.3 g/dL (6.1-8.1)
--- NOTE | 2023-01-07 15:11 | P.PNIM_ITS ---
Progress Note: A&P Assessment and Plan (1) Severe sepsis: Code(s): A41.9 - Sepsis, unspecified organism; R65.20 - Severe sepsis without septic shock Status: Resolved Assessment and Plan: Patient septic presentation evident by leukocytosis, tachycardia, tachypnea, hypotension * Source of infection is pneumonia * Leukocytosis, tachypnea, tachycardia resolved * Lactic acid within normal limits * Blood cultures negative * Patient was appropriately rehydrated with IV fluids * She has received appropriate antibiotics (2) Pneumonia: Qualifiers: Pneumonia type: due to unspecified organism Laterality: bilateral Lung location: unspecified part of lung Qualified Code(s): J18.9 - Pneumonia, unspecified organism Code(s): J18.9 - Pneumonia, unspecified organism Status: Acute Assessment and Plan: Presented to the ED with complaints of increased shortness of breath, increased green sputum production * CXR and CTA with findings of atelectasis, CTA showed bilateral mucus plugging * Patient has completed 7 day course of IV ceftriaxone/p.o. Augmentin and 5 days of azithromycin * Respiratory status is stable at this time (3) Acute and chronic respiratory failure: Qualifiers: Respiratory failure complication: hypoxia Qualified Code(s): J96.21 - Acute and chronic respiratory failure with hypoxia Code(s): J96.20 - Acute and chronic respiratory failure, unspecified whether with hypoxia or hypercapnia Status: Acute Assessment and Plan: Worsened secondary to pneumonia * Currently maintaining adequate O2 sats on her baseline 2 L supplemental O2 * Patient recently recovered from COVID-19, likely worsening her respiratory status * Continue nebs q.6 p.r.n. * Repeat CXR on 01/05 shows clear lungs (4) Chronic kidney disease, stage III (moderate): Qualifiers: Chronic kidney disease stage 3 subtype: stage 3b (GFR 30-44) Qualified Code(s): N18.32 - Chronic kidney disease, stage 3b Code(s): N18.30 - Chronic kidney disease, stage 3 unspecified Status: Chronic Assessment and Plan: Baseline creatinine appears to be 1.1-1.5 * renal function is consistent with baseline at this time * Appreciate nephrology consultation * Renal ultrasound with no hydronephrosis and 3.5 cm left renal cyst * Continue to monitor BMP (5) Acute hyponatremia: Code(s): E87.1 - Hypo-osmolality and hyponatremia Status: Acute Assessment and Plan: Resolved. Sodium 133 today * Sodium corrected at appropriate rate * Continue sodium chloride tabs 1 g b.i.d. * Continue 1500 cc fluid restriction diet * appreciate nephrology recommendations for continued management (6) CIRILO (obstructive sleep apnea): Code(s): G47.33 - Obstructive sleep apnea (adult) (pediatric) Status: Acute Assessment and Plan: Continue with cpap at home settings. (7) Essential (primary) hypertension: Code(s): I10 - Essential (primary) hypertension Status: Chronic Assessment and Plan: Blood pressures are fluctuant. BP this morning down to 94/43, however subsequent BP improved. 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
--- NOTE | 2023-01-07 15:11 | PM.IMPN ---
Progress Note: A&P Assessment and Plan (1) Severe sepsis: Code(s): A41.9 - Sepsis, unspecified organism; R65.20 - Severe sepsis without septic shock Status: Resolved Assessment and Plan: Patient septic presentation evident by leukocytosis, tachycardia, tachypnea, hypotension Source of infection is pneumonia Leukocytosis, tachypnea, tachycardia resolved Lactic acid within normal limits Blood cultures negative Patient was appropriately rehydrated with IV fluids She has received appropriate antibiotics (2) Pneumonia: Qualifiers: Pneumonia type: due to unspecified organism Laterality: bilateral Lung location: unspecified part of lung Qualified Code(s): J18.9 - Pneumonia, unspecified organism Code(s): J18.9 - Pneumonia, unspecified organism Status: Acute Assessment and Plan: Presented to the ED with complaints of increased shortness of breath, increased green sputum production CXR and CTA with findings of atelectasis, CTA showed bilateral mucus plugging Patient has completed 7 day course of IV ceftriaxone/p.o. Augmentin and 5 days of azithromycin Respiratory status is stable at this time (3) Acute and chronic respiratory failure: Qualifiers: Respiratory failure complication: hypoxia Qualified Code(s): J96.21 - Acute and chronic respiratory failure with hypoxia Code(s): J96.20 - Acute and chronic respiratory failure, unspecified whether with hypoxia or hypercapnia Status: Acute Assessment and Plan: Worsened secondary to pneumonia Currently maintaining adequate O2 sats on her baseline 2 L supplemental O2 Patient recently recovered from COVID-19, likely worsening her respiratory status Continue nebs q.6 p.r.n. Repeat CXR on 01/05 shows clear lungs (4) Chronic kidney disease, stage III (moderate): Qualifiers: Chronic kidney disease stage 3 subtype: stage 3b (GFR 30-44) Qualified Code(s): N18.32 - Chronic kidney disease, stage 3b Code(s): N18.30 - Chronic kidney disease, stage 3 unspecified Status: Chronic Assessment and Plan: Baseline creatinine appears to be 1.1-1.5 renal function is consistent with baseline at this time Appreciate nephrology consultation Renal ultrasound with no hydronephrosis and 3.5 cm left renal cyst Continue to monitor BMP (5) Acute hyponatremia: Code(s): E87.1 - Hypo-osmolality and hyponatremia Status: Acute Assessment and Plan: Resolved. Sodium 133 today Sodium corrected at appropriate rate Continue sodium chloride tabs 1 g b.i.d. Continue 1500 cc fluid restriction diet appreciate nephrology recommendations for continued management (6) CIRILO (obstructive sleep apnea): Code(s): G47.33 - Obstructive sleep apnea (adult) (pediatric) Status: Acute Assessment and Plan: Continue with cpap at home settings. (7) Essential (primary) hypertension: Code(s): I10 - Essential (primary) hypertension Status: Chronic Assessment and Plan: Blood pressures are fluctuant. BP this morning down to 94/43, however subsequent BP improved. 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
[2023-01-07 16:46] LABS: Glucose Point of Care 106 mg/dl (65-105)
[2023-01-07] MEDS: IPRATROPIUM BR 0.02% INH SOLN 0.5 MG/2.5 ML VIAL INHALATION (20:29)
[2023-01-07] MEDS: LEVALBUTEROL NEB 1.25 MG/3 ML INHALATION (20:30)
[2023-01-07] MEDS: rOPINIRole HCL 1 MG TABLET 4 MG PO (20:59)
[2023-01-07 21:44] LABS: Glucose Point of Care 130 mg/dl (65-105)
--- NOTE | 2023-01-07 21:48 | PC.NURSE ---
Called hospitalist, Autunm Stevens @[phone] to ask if Lantus orders should be held again or reduced. There are two existing orders for Lantus, one for HS and one for daily. Pt's blood sugar does trend down in the mornings. Ordered to only give half of her HS dose tonight.
[2023-01-08] VITALS (8 sets, daily range): BP systolic 113–126; BP diastolic 56–69; PULSE 82–99; RESP 14–20; TEMP 36.4–36.8; O2SAT 93–99
[2023-01-08 05:04] LABS: Hematocrit 30.9 % (37.0-47.0); Hemoglobin 9.5 g/dL (12.0-15.0); Mean Corpuscular HGB Conc 30.7 g/dl (32-36); Mean Corpuscular Hemoglobin 28.4 pg (26-34); Mean Corpuscular Volume 92.5 fl (80-100); Mean Platelet Volume 9.1 fl (7.4-10.4); Platelet Count Result 255 k/mm3 (150-375); Red Blood Count 3.34 M/mm3 (4.2-5.4); Red Cell Distribution Width 14.4 % (11.5-14.5); White Blood Count 9.7 K/mm3 (4.5-10.0)
[2023-01-08 05:12] LABS: Anion Gap 1 mmol/L (8-16); Blood Urea Nitrogen 32 mg/dL (7-17); Calcium 8.5 mg/dL (8.4-10.2); Carbon Dioxide 30 mmol/L (22-30); Chloride 102 mmol/L (98-107); Estimated CRCL calculation 60 ml/min; Estimated Glomerular Filt Rate 49; Glucose 97 mg/dL (65-110); Potassium 5.2 mmol/L (3.4-5.0); Sodium 133 mmol/L (137-145)
--- NOTE | 2023-01-08 07:39 | P.PNIM_ITS ---
Progress Note: A&P Assessment and Plan (1) Severe sepsis: Code(s): A41.9 - Sepsis, unspecified organism; R65.20 - Severe sepsis without septic shock Status: Resolved Assessment and Plan: Patient septic presentation evident by leukocytosis, tachycardia, tachypnea, hypotension * Source of infection is pneumonia * Leukocytosis, tachypnea, tachycardia resolved * Lactic acid within normal limits * Blood cultures negative * Patient was appropriately rehydrated with IV fluids * She has received appropriate antibiotics * Stable and resolved (2) Pneumonia: Qualifiers: Pneumonia type: due to unspecified organism Laterality: bilateral Lung location: unspecified part of lung Qualified Code(s): J18.9 - Pneumonia, unspecified organism Code(s): J18.9 - Pneumonia, unspecified organism Status: Acute Assessment and Plan: Presented to the ED with complaints of increased shortness of breath, increased green sputum production * CXR and CTA with findings of atelectasis, CTA showed bilateral mucus plugging * Patient has completed 7 day course of IV ceftriaxone/p.o. Augmentin and 5 days of azithromycin * Respiratory status is stable at this time * Stable and at baseline (3) Acute and chronic respiratory failure: Qualifiers: Respiratory failure complication: hypoxia Qualified Code(s): J96.21 - Acute and chronic respiratory failure with hypoxia Code(s): J96.20 - Acute and chronic respiratory failure, unspecified whether with hypoxia or hypercapnia Status: Acute Assessment and Plan: Worsened secondary to pneumonia * Currently maintaining adequate O2 sats on her baseline 2 L supplemental O2 * Patient recently recovered from COVID-19, likely worsening her respiratory status * Continue nebs q.6 p.r.n. * Repeat CXR on 01/05 shows clear lungs (4) Chronic kidney disease, stage III (moderate): Qualifiers: Chronic kidney disease stage 3 subtype: stage 3b (GFR 30-44) Qualified Code(s): N18.32 - Chronic kidney disease, stage 3b Code(s): N18.30 - Chronic kidney disease, stage 3 unspecified Status: Chronic Assessment and Plan: Baseline creatinine appears to be 1.1-1.5 * Current BUN/Cr 32/1.10 * renal function is consistent with baseline at this time * Appreciate nephrology consultation * Renal ultrasound with no hydronephrosis and 3.5 cm left renal cyst * Continue to trend labs (5) Acute hyponatremia: Code(s): E87.1 - Hypo-osmolality and hyponatremia Status: Acute Assessment and Plan: Resolved. Sodium remained 133 today * Sodium corrected at appropriate rate * Continue sodium chloride tabs 1 g b.i.d. * Continue 1500 cc fluid restriction diet * appreciate nephrology recommendations for continued management (6) CIRILO (obstructive sleep apnea): Code(s): G47.33 - Obstructive sleep apnea (adult) (pediatric) Status: Acute Assessment and Plan: Continue with cpap at home settings. (7) Essential (primary) hypertension: Code(s): I10 - Essential (primary) hypertension Status: Chronic Assessment and Plan: Blood pressures are fluctuant. BP this morning down to 94/43, however subsequent BP improved. Last BP 126/63 * Patient was noted to be hypotensive on presentation * Lisinopril has been on hold * Continue to trend * Appreciate nephrology assistance and rec
--- NOTE | 2023-01-08 07:39 | PM.IMPN ---
Progress Note: A&P Assessment and Plan (1) Severe sepsis: Code(s): A41.9 - Sepsis, unspecified organism; R65.20 - Severe sepsis without septic shock Status: Resolved Assessment and Plan: Patient septic presentation evident by leukocytosis, tachycardia, tachypnea, hypotension Source of infection is pneumonia Leukocytosis, tachypnea, tachycardia resolved Lactic acid within normal limits Blood cultures negative Patient was appropriately rehydrated with IV fluids She has received appropriate antibiotics Stable and resolved (2) Pneumonia: Qualifiers: Pneumonia type: due to unspecified organism Laterality: bilateral Lung location: unspecified part of lung Qualified Code(s): J18.9 - Pneumonia, unspecified organism Code(s): J18.9 - Pneumonia, unspecified organism Status: Acute Assessment and Plan: Presented to the ED with complaints of increased shortness of breath, increased green sputum production CXR and CTA with findings of atelectasis, CTA showed bilateral mucus plugging Patient has completed 7 day course of IV ceftriaxone/p.o. Augmentin and 5 days of azithromycin Respiratory status is stable at this time Stable and at baseline (3) Acute and chronic respiratory failure: Qualifiers: Respiratory failure complication: hypoxia Qualified Code(s): J96.21 - Acute and chronic respiratory failure with hypoxia Code(s): J96.20 - Acute and chronic respiratory failure, unspecified whether with hypoxia or hypercapnia Status: Acute Assessment and Plan: Worsened secondary to pneumonia Currently maintaining adequate O2 sats on her baseline 2 L supplemental O2 Patient recently recovered from COVID-19, likely worsening her respiratory status Continue nebs q.6 p.r.n. Repeat CXR on 01/05 shows clear lungs (4) Chronic kidney disease, stage III (moderate): Qualifiers: Chronic kidney disease stage 3 subtype: stage 3b (GFR 30-44) Qualified Code(s): N18.32 - Chronic kidney disease, stage 3b Code(s): N18.30 - Chronic kidney disease, stage 3 unspecified Status: Chronic Assessment and Plan: Baseline creatinine appears to be 1.1-1.5 Current BUN/Cr 32/1.10 renal function is consistent with baseline at this time Appreciate nephrology consultation Renal ultrasound with no hydronephrosis and 3.5 cm left renal cyst Continue to trend labs (5) Acute hyponatremia: Code(s): E87.1 - Hypo-osmolality and hyponatremia Status: Acute Assessment and Plan: Resolved. Sodium remained 133 today Sodium corrected at appropriate rate Continue sodium chloride tabs 1 g b.i.d. Continue 1500 cc fluid restriction diet appreciate nephrology recommendations for continued management (6) CIRILO (obstructive sleep apnea): Code(s): G47.33 - Obstructive sleep apnea (adult) (pediatric) Status: Acute Assessment and Plan: Continue with cpap at home settings. (7) Essential (primary) hypertension: Code(s): I10 - Essential (primary) hypertension Status: Chronic Assessment and Plan: Blood pressures are fluctuant. BP this morning down to 94/43, however subsequent BP improved. 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
[2023-01-08] MEDS: IPRATROPIUM BR 0.02% INH SOLN 0.5 MG/2.5 ML VIAL INHALATION (07:42)
[2023-01-08] MEDS: LEVALBUTEROL NEB 1.25 MG/3 ML INHALATION (07:42)
[2023-01-08] MEDS: ATORVASTATIN 40 MG TABLET 80 MG PO (08:08)
[2023-01-08] MEDS: APIXABAN 2.5 MG TABLET PO (08:08)
[2023-01-08] MEDS: allopurinoL 100 MG TABLET PO (08:08)
[2023-01-08] MEDS: busPIRone HCL 2.5 MG TABLET PO ×2 (08:09→16:28)
[2023-01-08] MEDS: busPIRone HCL 5 MG TABLET PO ×2 (08:09→16:28)
[2023-01-08] MEDS: BENZONATATE 100 MG CAPSULE 200 MG PO ×3 (08:09→16:28)
[2023-01-08] MEDS: MIRABEGRON 25 MG ER TABLET PO (08:10)
[2023-01-08] MEDS: FLUTICASONE PROPIONATE 0.05% NA SPR 16 GM BTL (*BKC) 1 SPRAY NASAL (08:10)
[2023-01-08] MEDS: SODIUM CHLORIDE 1 GM TABLET PO ×2 (08:10→16:28)
[2023-01-08] MEDS: GABAPENTIN 300 MG CAPSULE PO ×3 (08:10→16:28)
[2023-01-08] MEDS: TOLNAFTATE 1% POWDER 45 GM BTL 1 APPLIC TOPICAL (08:11)
[2023-01-08 08:40] LABS: Glucose Point of Care 72 mg/dl (65-105)
--- NOTE | 2023-01-08 10:45 | PM.DS ---
DS: Admitting Diagnosis Discharge Date 01/08/23 1045 Admitting Diagnosis Pneumonia, severe sepsis, acute on chronic respiratory failure, Acute hyponatremia, acute hyperkalemia DS: Summary Hospital Course Hospital Course: patient is a 72-year-old female with a past medical history of COPD, congestive heart failure, COVID who presented to the ED with complaints of, and excessive swelling in her legs and shortness of breath. Patient did meet sepsis criteria by leukocytosis, tachycardia, tachypnea, hypotension. Source of infection was pneumonia. Blood cultures in sputum cultures were obtained however did not grow anything. On chest x-ray and CTA were done and showed bilateral mucus plugging. Patient was started on azithromycin and ceftriaxone and has completed full course of both. Patient is back to her baseline respiratory status of 2 L. upon arrival patient was noted to be in the 70s. Kidney function has been on trend as patient was noted to have an elevated creatinine level. Nephrology was consulted due to patient's hyponatremia. Sodium is stable at 133. It is also noted the patient is hyperkalemic and was noted to be 5.9. Currently patient is 5.2 and was placed on a low-potassium diet and was given a dose of Lokelma. Patient is doing much better she is in the room brushing her hair. Patient patient currently denies any chest pain, shortness a breath, nausea, vomiting, diarrhea or constipation. Patient is stable for discharge for labs and vital signs at this time. Spoke to Nephrology was also okay with discharge even with a potassium of 5.2. Will have patient get labs in 1 week. Status at Discharge Functional status at discharge: bed bound Overall status at discharge: patient is progressing back to baseline Time Spent with Patient Time attestation: Total time spent providing and/or coordinating discharge services: 48 minutes Time spent: Greater than 30 minutes Specific discharge activities: Diagnostic testing, chart review, developing a treatment plan, education, care coordination documentation, physical exam, result review Exam Narrative: General: well-nourished, well-appearing 72-year-old female, sitting up in bed, comfortable, NARD Neuro: awake, alert and oriented x4, speech clear, no focal neuro deficits noted HEENMT: normocephalic, atraumatic, EOMI, sclerae anicteric, moist oral mucosa Respiratory: Clear to auscultation bilaterally without crackles, rhonchi or wheezes, nonlabored breathing Cardio: regular rate, regular rhythm with S1-S2 Abdomen: nondistended, normoactive bowel sounds, soft, nontender to palpation Extremities: no edema, erythema, or tenderness to palpation, DP pulses 2+ bilaterally Skin: no rashes or lesions, warm and dry Psych: appropriate mood and affect, judgment and insight intact DS: Data Data Completed and Pending Labs on day of discharge: Labs from last 24 hours 01/08/23 01/08/23 01/08/23 12:05 11:04 08:04 WBC RBC Hgb Hct MCV MCH MCHC RDW Plt Count MPV Sodium Potassium Chloride Carbon Dioxide Anion Gap BUN Creatinine Estim Creat Clear Calc Estimated GFR Glucose POC Capillary Glucose 121 H 151 H 72 Calcium Total Protein Albumin Sdjkv-9-Newgzceen Mcjfn-4-Qfhlloklo Lydj-6-Dpdikcer Pwjv-2-Vmrbxonl Gamma Globulins Abnorm Protein Band 1 Abnorm Protein Band 3 PEP Interpretation 01/08/23 01/07/23 01/07/23 04:47 20:55 16:42 WBC 9.7 RBC 3.34 L Hgb 9.5 L Hct 30.9 L MCV 92.5 MCH 28.4 MCHC 30.7 L RDW 14.4 Plt Count 255 MPV 9.1 Sodium 133 L Potassium 5.2 H Chloride 102 Carbon Dioxide 30 Anion Gap 1 L BUN 32 H Creatinine 1.10 H Estim Creat Clear Calc 60 Estimated GFR 49 L Glucose 97 POC Capillary Glucose 130 H 106 H Calcium 8.5 Total Protein Albumin Ksqgb-3-Qdjwbfqvr Fpoop-1-Yifchuspq Beta
[2023-01-08 11:07] LABS: Glucose Point of Care 151 mg/dl (65-105)
[2023-01-08] MEDS: INSULIN GLARGINE (*BKC) 100 UNITS/ML 28 UNITS SUB-Q (11:12)
[2023-01-08 12:20] LABS: Glucose Point of Care 121 mg/dl (65-105)
[2023-01-08 17:03] LABS: Glucose Point of Care 141 mg/dl (65-105)
[2023-01-11 03:41] LABS: Creatinine, Random Urine 20 mg/dL (20-275); Total Protein/Creatinine Ratio 350 mg/g creat (24-184)
== END 2023-01-08 18:06 | DRG 194 ==
LOC: ANHED 13:00 → ANH2MED 14:52
PROVIDERS: Internal Medicine Nephrology; Nurse Practitioner; Physician Assistant; Admitting Provider Chiropractor; Emergency Provider Emergency Medicine; PCP Family Medicine; Visit Provider Nurse Practitioner
DX: J18.9 Pneumonia, unspecified organism (principal); E87.1 Hypo-osmolality and hyponatremia; J44.0 Chronic obstructive pulmonary disease with (acute) lower respiratory infection; I13.0 Hypertensive heart and chronic kidney disease with heart failure and stage 1 through stage 4 chronic kidney disease, or unspecified chronic kidney disease; Z68.44 Body mass index [BMI] 60.0-69.9, adult; N17.9 Acute kidney failure, unspecified; E11.22 Type 2 diabetes mellitus with diabetic chronic kidney disease; N18.32 Chronic kidney disease, stage 3b; I50.9 Heart failure, unspecified; G47.33 Obstructive sleep apnea (adult) (pediatric); F41.8 Other specified anxiety disorders; E86.0 Dehydration; E11.42 Type 2 diabetes mellitus with diabetic polyneuropathy; E87.5 Hyperkalemia; K57.90 Diverticulosis of intestine, part unspecified, without perforation or abscess without bleeding; T17.990A Other foreign object in respiratory tract, part unspecified in causing asphyxiation, initial encounter; E78.5 Hyperlipidemia, unspecified; K44.9 Diaphragmatic hernia without obstruction or gangrene; K58.9 Irritable bowel syndrome, unspecified; E66.01 Morbid (severe) obesity due to excess calories; M19.90 Unspecified osteoarthritis, unspecified site; D50.9 Iron deficiency anemia, unspecified; G25.81 Restless legs syndrome; Z79.4 Long term (current) use of insulin; Z99.81 Dependence on supplemental oxygen; Z86.16 Personal history of COVID-19
CPT/HCPCS: 36415; 71045; 71046; 71275; 76775; 80048; 80053; 81001; 81050; 82533; 82550; 82570; 82607; 82728; 82746; 82948; 83036; 83540; 83550; 83605; 83735; 83880; 83935; 84132; 84155; 84156; 84165; 84166; 84300; 84443; 84466; 84540; 85025; 85027; 87040; 87070; 87205; 87493; 93005; 94640; 94660; 96361; 96375; 99285; A9270; G0378; J0456; J0696; J1815; J1940; J3475; J7030; J7120; Q9967

== ENCOUNTER 2023-07-27 07:36 | Inpatient (IN) | payer MEDICARE, MEDICAID, SELFPAY ==
[2023-07-27] VITALS (100 sets, daily range): BP systolic 102–149; BP diastolic 48–131; PULSE 78–98; RESP 11–28; TEMP 36.7; O2SAT 87–99
--- NOTE | ~2023-07-27 | XR_ITS ---
EXAMINATION: XR sniff test without CXR2V DATE: 07/28/2023 13:44 INDICATION: Elevated right hemidiaphragm. Respiratory failure. TECHNIQUE: I performed fluoroscopy of the chest while the patient performed normal breathing, deep br eathing, and forceful sniffing. 454 images were obtained. Fluoroscopy exposure time was 0.6 minutes. COMPARISON: Chest single view 07/27/2023, 01/03/2023 FINDINGS: There is chronic mild elevation of right hemidiaphragm. There is symmetric motion of the di aphragm. The diaphragm moves less than normal. No paradoxical motion. IMPRESSION: 1. Chronic mild elevation of right hemidiaphragm with symmetric hypomobility of the diaphragm, which may be secondary to obesity. Reviewed, dictated and finalized at location A. P [employer]
--- NOTE | ~2023-07-27 | XR_ITS ---
EXAMINATION: XR chest 1V DATE: 07/27/2023 12:23 INDICATION: Shortness of breath. TECHNIQUE: A single frontal view of the chest was obtained. COMPARISON: Chest single view 01/05/2023, chest CT 12/30/2022 FINDINGS: There is mild elevation of right hemidiaphragm. The patient is rotated to her right. There are airspace opacities in superior segment right lower lobe. No pleural effusion or pneumothorax. The heart size is normal. IMPRESSION: 1. Airspace opacities in superior segment right lower lobe, consistent with atelectasis versus pneumo beverley. Reviewed, dictated and finalized at location A. ENT FINANCE ADVISOR IMPRESSION: 1. Airspace opacities in superior segment right lower lobe, consistent with ate lectasis versus pneumonia.
--- NOTE | ~2023-07-27 | CT_ITS ---
EXAMINATION: CT brain wo con DATE: 07/27/2023 12:16 INDICATION: Confusion. TECHNIQUE: Computed tomography (CT) of the head was performed without intravenous contrast. The mA wa s adjusted according to patient size. Iterative reconstruction technique was employed. The dose-lengt h product was 681.00 mGy-cm. COMPARISON: None FINDINGS: There is no intracranial hemorrhage, acute infarction, or abnormal intracranial mass lesion . There are scattered areas of low attenuation in the cerebral white matter, which is within normal l imits for the patient's age. There is an old lacunar infarct in the arsh. The ventricles are normal i n size. The orbits are normal. There is mild mucosal thickening in the paranasal sinuses. The mastoid air cells are normal. IMPRESSION: 1. Old lacunar infarct in the arsh. Reviewed, dictated and finalized at location A. DATION SCIENTIST
--- NOTE | 2023-07-27 07:41 | ECG_ITS ---
Measurements Intervals [place] Rate: 95 P: 19 MN: 144 QRS: -3 QRSD: 100 T: 3 QT: 334 QTc: 421 Interpretive Statements SINUS RHYTHM DELAYED PRECORDIAL R/S TRANSITION BORDERLINE ST-T WAVE ABNORMALITY- INFERIOR LEADS BORDERLINE ECG COMPARED TO ECG 12/30/2022 11:39:42 SINUS RHYTHM NOW PRESENT Electronically Signed On 07-27-2023 8:31:40 AUTOMOTIVE MACHINIST APPRENTICE by Dario Dudley D.O.
[2023-07-27 08:15] LABS: Basophils Absolute Auto 0.1 K/mm3 (0.0-0.1); Basophils Percent Auto 1.1 % (0.2-1.2); Eosinophils Absolute Auto 0.1 K/mm3 (0-0.3); Eosinophils Percent Auto 1.8 % (0-4.4); Hematocrit 36.7 % (37.0-47.0); Hemoglobin 9.8 g/dL (12.0-15.0); Immature Granulocyte Percent A 1.8 % (0-0.5); Lymphocytes Absolute Auto 0.81 K/mm3 (0.9-3.2); Lymphocytes Percent Auto 14.4 % (18.3-44.2); Mean Corpuscular HGB Conc 26.7 g/dl (32-36); Mean Corpuscular Hemoglobin 22.6 pg (26-34); Mean Corpuscular Volume 84.6 fl (80-100); Monocytes Absolute Auto 0.4 K/mm3 (0.1-0.6); Monocytes Percent Auto 7.8 % (2.6-8.5); Neutrophils Absolute Auto 4.1 K/mm3 (1.3-6.7); Neutrophils Percent Auto 73.1 % (45.5-73.1); Platelet Count Result 203 k/mm3 (150-375); Red Blood Count 4.34 M/mm3 (4.2-5.4); Red Cell Distribution Width 16.6 % (11.5-14.5); White Blood Count 5.6 K/mm3 (4.5-10.0)
[2023-07-27 08:27] LABS: INR 1.2; Partial Thromboplastin Time 30.9 SECONDS (22.3-36.8); Prothrombin Time 15.6 Seconds (11.1-14.7)
[2023-07-27 08:29] LABS: Alanine Aminotransferase 186 U/L (6-35); Albumin Level 3.6 g/dL (3.5-5.1); Alkaline Phosphatase 81 U/L (38-126); Anion Gap 2 mmol/L (8-16); Aspartate Amino Transferase 150 U/L (14-36); Bilirubin,Total 0.6 mg/dL (0.2-1.3); Blood Urea Nitrogen 43 mg/dL (7-17); Calcium 8.7 mg/dL (8.4-10.2); Carbon Dioxide 39 mmol/L (22-30); Chloride 94 mmol/L (98-107); Estimated CRCL calculation 41 ml/min; Estimated Glomerular Filt Rate 28; Glucose 230 mg/dL (65-110); Sodium 135 mmol/L (137-145)
[2023-07-27 08:39] LABS: Anisocytosis 1+ (NORMAL); Basophilic Stippling 1+ (NORMAL); Hypochromasia 1+ (NORMAL); Platelet Estimate Adequate (Adequate); Stomatocytes 1+ (NORMAL)
[2023-07-27 08:40] LABS: Schistocytes None Seen (NORMAL)
--- NOTE | 2023-07-27 09:25 | PC.NURSE ---
Received pt's consent to talk to her son Ovidio Ludwig and gave update regarding pt.
[2023-07-27 10:46] LABS: Appearance Urine Cloudy (Clear); Bacteria Urine Rare /hpf; Bilirubin Urine Negative (Negative); Blood Urine Negative (Negative); Color Urine Dark Yellow (Yellow); Glucose Urine UA Negative (Negative); Ketones Urine Negative (Negative); Leukocyte Esterase Ur 2+ LEU/UL (Negative); Need Manual Microscopic Need Manual; Nitrate Urine Negative (Negative); Protein Urine 1+ mg/dL (Negative); RBC Urine 0-2 /hpf (0-2); Specific Grav Ur 1.021 (1.001-1.035); Squamous Epithelial Cell Urine Few /hpf (Few); pH Urine 5.5 (5.0-9.0)
[2023-07-27 11:11] LABS: Add Urine Microscopic? YES
[2023-07-27 11:17] LABS: Alveolar/Arterial O2 Gradient 52.9 mmHg; Base Excess ABG 7.3 mEq/l (+/-2.0); Fractional Inspired Oxygen 32 %; HCO3 ABG 36.8 mEq/l (22.0-26.0); Oxygen Content ABG 13.9 %vol (16.0-22.0); Oxyhemoglobin 90.3 % THb (90.0-100.0); PO2 ABG 75.2 mmHg (80.0-100.0); PO2 FiO2 Ratio Arterial Blood 2.35 %; Total Hemoglobin 10.9 g/dL (12.0-18.0)
[2023-07-27 11:18] LABS: pH ABG 7.252 (7.350-7.450)
[2023-07-27 11:19] LABS: Device NASAL CANNULA; Modified Allen's Test Pass; PCO2 ABG 85.5 mmHg (35.0-45.0); Site Drawn RIGHT RADIAL
--- NOTE | 2023-07-27 11:38 | ED.GENADULT ---
HPI - General Adult General Chief complaint: Altered Mental Status Stated complaint: ams Time Seen by Provider: 07/27/23 10:26 History of Present Illness HPI narrative: Delilah Ludwig is a 72 y/o female with PMHx of COPD/ CIRILO/ DM/ HTN/ CKD stage III/ HLD who was brought in today from her NH by EMS for altered mental status that has been worsening over the past few days. Patient is falling asleep easily in room - oriented X 4 for RN in triage - wears 2L at baseline and EMS placed her on 4L in route. Patient awakes briefly she is able to tell me her name/ she states she is in a nursing facility/hospital/ states it is 2023/ she states she does not typically walk uses a wheelchair/ reports feeling SOB earlier/ denies chest pain/ Following simple commands. Related Data Home Medications Medication Instructions Recorded Confirmed albuterol sulfate 90 mcg/actuation 2 puff inhalation BID PRN 12/30/22 12/30/22 aerosol inhaler Shortness Of Breath allopurinol 100 mg tablet 100 mg PO BID 12/30/22 12/30/22 apixaban 2.5 mg tablet (Eliquis) 2.5 mg PO BID 12/30/22 12/30/22 atorvastatin 80 mg tablet 80 mg PO DAILY 12/30/22 12/30/22 azelastine 0.05 % eye drops 1 drp ophthalmic (eye) BID 12/30/22 12/30/22 benzonatate 200 mg capsule 200 mg PO TID 12/30/22 12/30/22 buspirone 7.5 mg tablet 7.5 mg PO BID 12/30/22 12/30/22 fluticasone propionate 50 1 spray intranasal DAILY 12/30/22 12/30/22 mcg/actuation nasal spray,suspension gabapentin 300 mg capsule 300 mg PO TID 12/30/22 12/30/22 insulin glargine 100 unit/mL 28 unit subcut DAILY 12/30/22 12/30/22 subcutaneous solution insulin glargine 100 unit/mL 42 unit subcut HS 12/30/22 12/30/22 subcutaneous solution ipratropium bromide 0.02 % 3 ml continuous nebulization QID 12/30/22 12/30/22 solution for inhalation lisinopril 20 mg tablet 20 mg PO DAILY 12/30/22 12/30/22 loratadine 10 mg tablet (Claritin) 10 mg PO DAILY 12/30/22 12/30/22 mirabegron 25 mg tablet,extended 25 mg PO DAILY 12/30/22 12/30/22 release 24 hr (Myrbetriq) omeprazole 20 mg capsule,delayed 20 mg PO DAILY 12/30/22 12/30/22 release ropinirole 2 mg tablet 4 mg PO HS 12/30/22 12/30/22 sertraline 100 mg tablet 100 mg PO DAILY 12/30/22 12/30/22 Allergies Allergy/AdvReac Type Severity Reaction Status Date / Time NSAIDS (Non-Steroidal Allergy Unknown Other Verified 07/27/23 08:11 Anti-Inflamma Review of Systems Review of Systems: CONSTITUTIONAL: Denies fever, chills, or sweats. EYES: Denies visual changes, redness, or discharge. ENT: Denies rhinorrhea, congestion, sore throat, or otalgia. CARDIOVASCULAR: Denies chest pain, RESPIRATORY: Denies cough, reports feeling SOB earlier GASTROINTESTINAL: Denies abdominal pain, nausea, vomiting, or diarrhea. GENITOURINARY: Denies dysuria or hematuria. SKIN: Denies rash or itching. MUSCULOSKELETAL: Denies back pain, joint pain, or myalgia. NEUROLOGIC: Denies headache, numbness, dizziness, or weakness. PSYCHIATRIC: Denies anxiety or depression. [facility] Past Medical History Medical History Acute hypercapnic respiratory failure Anemia of chronic disease Candidiasis, intertrigo Cellulitis CHF (congestive heart failure) Chronic kidney disease, stage III (moderate) Chronic midline low back pain COPD (chronic obstructive pulmonary disease) Degenerative joint disease Depression with anxiety With history of panic attacks Diabetic polyneuropathy Diverticulosis Encephalopathy acute Essential (primary) hypertension Hepatosplenomegaly Hiatal hernia Small hiatal hernia noted on barium swallow performed due to dysphagia and sensation of globus. Of the mid distal esophagus, repeated mid distal esophageal reflux Hyperlipidemia Iron deficiency anemia Irritable bowel syndrome Lung nodule Lymphedema of both lower extremities CIRILO (obstructive sleep apnea) Osteoarthritis Overactive bladder With chronic urinary incontinence Fole
[2023-07-27 12:39] LABS: Carboxyhemoglobin 1.4 % THb (0-2.0); Fractional Inspired Oxygen 30 %; HCO3 ABG 33.9 mEq/l (22.0-26.0); Methemoglobin ABG 0.3 %THb (0-1.5); Oxygen Content ABG 13.6 %vol (16.0-22.0); Oxygen Saturation ABG 89.3 % (95.0-100.0); PO2 ABG 66.4 mmHg (80.0-100.0); PO2 FiO2 Ratio Arterial Blood 2.21 %; Reduced Hemoglobin 11.6 %THb (0-5.0); Total Hemoglobin 11.1 g/dL (12.0-18.0)
[2023-07-27 12:40] LABS: Device NON-INVASIVE VENT; Modified Allen's Test Pass; Oxyhemoglobin 86.7 % THb (90.0-100.0); Site Drawn RIGHT RADIAL; pH ABG 7.262 (7.350-7.450)
[2023-07-27 12:42] LABS: Non-Invasive Expiratory Pressure 7 CMH2O; Non-Invasive Inspiratory Pressure 16 CMH2O; Non-Invasive Vent Rate 18 /MIN
--- NOTE | 2023-07-27 15:14 | PM.IMHP ---
H&P: HPI History of Present Illness Date/Time: 07/27/23 14:00 Chief Complaint: Confusion. Narrative: This is a 72-year-old female with he congestive heart failure, hypertension, dyslipidemia, chronic obstructive pulmonary disease, chronic respiratory failure on 2 L nasal cannula, rheumatoid arthritis, insulin-dependent type 2 diabetes mellitus, morbid obesity, and other comorbidities who presented to the emergency department via EMS for evaluation of confusion. She is alert and oriented x4 at the time my evaluation and provides the following history. Over last several days she has noticed that she has been a bit confused and staff at her nursing facility brought her in today as she was increasingly confused. ABG on arrival showed a pH of 7.252, pCO2 85.5, bicarb 36.8. She was started on BiPAP and her mentation improved. Sleep apnea is documented in her chart however she denies this diagnosis and states that she does not use a CPAP or BiPAP at home. She has no current complaints and tells me she feels okay however does mention that she has had a cough occasionally productive of yellow/green phlegm for the last several days. She has chronic shortness of breath which is unchanged. She denies fever, chills, sweats, sinus congestion, and sore throat. She also denies chest pain, pleuritic pain, and palpitations. No known sick contacts. Review of Systems Review of Systems: Twelve systems were reviewed and are negative except for as per HPI. [facility] Past Medical History Medical History Acute hypercapnic respiratory failure Anemia of chronic disease Candidiasis, intertrigo Cellulitis CHF (congestive heart failure) Chronic kidney disease, stage III (moderate) Chronic midline low back pain Congestive heart failure COPD (chronic obstructive pulmonary disease) Degenerative joint disease Depression with anxiety With history of panic attacks Diabetic polyneuropathy Diverticulosis Encephalopathy acute Essential (primary) hypertension Hepatosplenomegaly Hiatal hernia Small hiatal hernia noted on barium swallow performed due to dysphagia and sensation of globus. Of the mid distal esophagus, repeated mid distal esophageal reflux Hyperlipidemia Insulin dependent type 2 diabetes mellitus Iron deficiency anemia Irritable bowel syndrome Lung nodule Lymphedema of both lower extremities CIRILO (obstructive sleep apnea) Osteoarthritis Overactive bladder With chronic urinary incontinence Beal catheter placed in the ER Panic disorder [episodic paroxysmal anxiety] Polyarthritis of multiple sites Postmenopausal Recurrent UTI Renal failure (ARF), acute on chronic Renal lesion Restless leg syndrome Severe sepsis Spondylosis Thyroid nodule Transaminitis Type 2 diabetes mellitus treated with insulin Surgical History Surgical History History of colonoscopy with polypectomy Family History Family History Sibling , Sister Cancer Psychiatric illness Father Cancer Mother Cancer Son Cancer Social History Social History Social History: She resides at [facility] . 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 She has never smoked but does have significant secondhand smoke exposure. She drinks a small amount of alcohol on rare occasion. She does have a history of marijuana use. The patient is wheelchair-bound. She has a significant other but states he rarely sees her at the facility. She has 2 children. She is chronically on oxygen at 2 L per nasal cannula. Primary care physician: Dr. Braulio Stewart Code status: Full code per EMR Smoking status: Never smoker Second hand tobacco smoke exposure: Yes Alcohol intake: never Alcohol use details: social Substance use:
[2023-07-27 15:25] LABS: SARS-CoV-2 RNA PCR Negative (Negative)
[2023-07-27 20:23] LABS: Alveolar/Arterial O2 Gradient 90.5 mmHg; Base Excess ABG 7.7 mEq/l (+/-2.0); Carboxyhemoglobin 0.9 % THb (0-2.0); Fractional Inspired Oxygen 35 %; HCO3 ABG 35.6 mEq/l (22.0-26.0); Methemoglobin ABG 0.2 %THb (0-1.5); Oxygen Content ABG 14.7 %vol (16.0-22.0); Oxygen Saturation ABG 94.3 % (95.0-100.0); Oxyhemoglobin 92.8 % THb (90.0-100.0); PO2 ABG 78.7 mmHg (80.0-100.0); PO2 FiO2 Ratio Arterial Blood 2.25 %; Reduced Hemoglobin 6.1 %THb (0-5.0); Total Hemoglobin 11.2 g/dL (12.0-18.0)
[2023-07-27 20:25] LABS: Device BIPAP; Modified Allen's Test Pass; PCO2 ABG 69.1 mmHg (35.0-45.0); Site Drawn RIGHT RADIAL
[2023-07-27 20:26] LABS: Expiratory Pressure 8 cmH2O; Inspiratory Pressure 18 cmH2O
[2023-07-27] MEDS: FUROSEMIDE INJ 40 MG/4 ML VIAL IV PUSH (22:12)
[2023-07-27 23:02] LABS: Glucose Point of Care 157 mg/dl (65-105)
[2023-07-28] VITALS (22 sets, daily range): BP systolic 96–142; BP diastolic 42–97; PULSE 76–100; RESP 18–25; TEMP 36.1–37; O2SAT 87–100; BMI 65.2
--- NOTE | 2023-07-28 00:20 | ADMGEN ---
0020 This patient, Delilah Ludwig, was admitted to IMU Room 212-01. Patient/family oriented to hospital policies and general routines including ID bracelet, bed and alarms, visiting hours, pain management, procedures, bathroom and other care routines, personal items, smoking policy, room service/diet, and visiting hours. Information on how to activate the Rapid Response Team has been discussed. Patient/Family are encouraged to report perceived risks to care and to ask questions if they do not understand what they are told or what they should do.
[2023-07-28 04:51] LABS: Hemoglobin 9.1 g/dL (12.0-15.0); Mean Corpuscular HGB Conc 26.8 g/dl (32-36); Mean Corpuscular Hemoglobin 22.3 pg (26-34); Mean Corpuscular Volume 83.3 fl (80-100); Mean Platelet Volume 10.1 fl (7.4-10.4); Platelet Count Result 200 k/mm3 (150-375); Red Blood Count 4.08 M/mm3 (4.2-5.4); Red Cell Distribution Width 16.7 % (11.5-14.5); White Blood Count 5.7 K/mm3 (4.5-10.0)
[2023-07-28 05:07] LABS: Alanine Aminotransferase 188 U/L (6-35); Albumin Level 3.3 g/dL (3.5-5.1); Alkaline Phosphatase 69 U/L (38-126); Aspartate Amino Transferase 123 U/L (14-36); Bilirubin,Total 0.5 mg/dL (0.2-1.3); Blood Urea Nitrogen 43 mg/dL (7-17); Calcium 8.7 mg/dL (8.4-10.2); Carbon Dioxide > 40 mmol/L (22-30); Chloride 96 mmol/L (98-107); Estimated CRCL calculation 49 ml/min; Estimated Glomerular Filt Rate 34; Glucose 125 mg/dL (65-110); Magnesium 1.7 mg/dL (1.6-2.3); Potassium 4.2 mmol/L (3.4-5.0); Sodium 136 mmol/L (137-145)
[2023-07-28 06:04] LABS: Alveolar/Arterial O2 Gradient 89.7 mmHg; Base Excess ABG 9.2 mEq/l (+/-2.0); Carboxyhemoglobin 0.3 % THb (0-2.0); Fractional Inspired Oxygen 35 %; HCO3 ABG 37.2 mEq/l (22.0-26.0); Methemoglobin ABG 0.2 %THb (0-1.5); Oxygen Content ABG 13.8 %vol (16.0-22.0); Oxygen Saturation ABG 93.6 % (95.0-100.0); Oxyhemoglobin 92.2 % THb (90.0-100.0); PO2 ABG 75.5 mmHg (80.0-100.0); PO2 FiO2 Ratio Arterial Blood 2.16 %; Reduced Hemoglobin 7.3 %THb (0-5.0); Total Hemoglobin 10.6 g/dL (12.0-18.0); pH ABG 7.328 (7.350-7.450)
[2023-07-28 06:06] LABS: Device NON-INVASIVE VENT; Modified Allen's Test Pass; PCO2 ABG 72.6 mmHg (35.0-45.0); Site Drawn RIGHT RADIAL
[2023-07-28 06:07] LABS: Non-Invasive Expiratory Pressure 8 CMH2O; Non-Invasive Inspiratory Pressure 18 CMH2O; Non-Invasive Vent Rate 20 /MIN
--- NOTE | 2023-07-28 06:49 | PC.NURSE ---
RN called patient's son, Ovidio, per patient's request. Room number and status update given.
[2023-07-28] MEDS: DOXYCYCLINE HYCLATE 100 MG TABLET PO ×2 (08:37→21:11)
[2023-07-28 09:13] LABS: Glucose Point of Care 109 mg/dl (65-105)
--- NOTE | 2023-07-28 09:22 | PM.IMPN ---
Progress Note: A&P Assessment and Plan (1) Acute on chronic respiratory failure with hypoxia and hypercapnia: Code(s): J96.21 - Acute and chronic respiratory failure with hypoxia; J96.22 - Acute and chronic respiratory failure with hypercapnia Status: Acute Assessment and Plan: Worsening hypercapnia, possibly secondary to underlying pneumonia versus atelectasis? Appreciate pulmonology consultation, likely needs chronic nocturnal CPAP versus BiPAP (2) Abnormal chest x-ray: Code(s): R93.89 - Abnormal findings on diagnostic imaging of other specified body structures Status: Acute Assessment and Plan: Continue Rocephin and doxycycline for possible pneumonia, initiated 07/27 (3) Encephalopathy: Code(s): G93.40 - Encephalopathy, unspecified Status: Acute Assessment and Plan: Resolved (4) Chronic obstructive pulmonary disease: Code(s): J44.9 - Chronic obstructive pulmonary disease, unspecified Status: Acute Assessment and Plan: Does not appear to be in acute exacerbation (5) Chronic kidney disease: Code(s): N18.9 - Chronic kidney disease, unspecified Status: Acute Assessment and Plan: Fluctuates between 1.3-1.9, stable at 1.5 today (6) Congestive heart failure: Code(s): I50.9 - Heart failure, unspecified Status: Acute Assessment and Plan: Appeared to be in mild exacerbation at admission, resolving, monitor on oral diuresis (7) Insulin dependent type 2 diabetes mellitus: Code(s): E11.9 - Type 2 diabetes mellitus without complications; Z79.4 - [facility] (current) use of insulin Status: Acute Assessment and Plan: Blood glucose reviewed 07/28 Accu-Cheks, sliding scale insulin (8) Essential (primary) hypertension: Code(s): I10 - Essential (primary) hypertension Status: Chronic Assessment and Plan: Blood pressures reviewed 07/28 (9) Elevated LFTs: Code(s): R79.89 - Other specified abnormal findings of blood chemistry Status: Acute Assessment and Plan: Unsure of etiology, stable, check acute hepatitis panel, continue to monitor Could be secondary to hepatic congestion from heart failure exacerbation? Hypoperfusion? Plan DVT prophylaxis with eliquis GI prophylaxis not indicated Code status full code Subjective Date/time seen: 07/28/23 09:22 Interval history: 72-year-old female with he congestive heart failure, hypertension, dyslipidemia, chronic obstructive pulmonary disease, chronic respiratory failure on 2 L nasal cannula, rheumatoid arthritis, insulin-dependent type 2 diabetes mellitus, morbid obesity, and other comorbidities who presented to the emergency department via EMS for evaluation of confusion and is being treated for hypercapnia. No overnight events noted. No chest pain or shortness of breath. No nausea, vomiting or diarrhea. No fevers or chills. Review of Systems Review of Systems: 12 point review of systems was assessed and was negative except as noted in the HPI Exam Narrative: General: No acute distress, alert and oriented per baseline HEENT: Atraumatic, normocephalic, mucous membranes moist CV: Regular rate and rhythm, S1, S2 Lungs: Clear to auscultation bilaterally, no rales or crackles noted, no wheezes, good air entry Abdomen: Soft, nontender, nondistended Extremities: Normal to inspection Skin: No rashes noted, no lesions or wounds seen Psych: Euthymic, normal affect Objective Data Vital Signs Vital Signs: Vital Signs - 24 hr 07/27/23 10:03 07/27/23 11:19 07/27/23 11:27 Temperature Pulse Rate 94 90 Respiratory Rate 19 18 Blood Pressure 145/75 H Pulse Oximetry 92 94 92 Oxygen Delivery Nasal Cannula BiPAP Oxygen Flow Rate 3 Fraction of Inspired Oxygen 07/27/23 11:27 07/27/23 09:30 07/27/23 09:31 Temperature Pulse Rate 93 91 Respira
[2023-07-28 09:25] LABS: Alveolar/Arterial O2 Gradient 86.4 mmHg; Base Excess ABG 9.4 mEq/l (+/-2.0); Fractional Inspired Oxygen 35 %; HCO3 ABG 35.8 mEq/l (22.0-26.0); Oxygen Content ABG 14.1 %vol (16.0-22.0); Oxygen Saturation ABG 97.1 % (95.0-100.0); Oxyhemoglobin 95.8 % THb (90.0-100.0); PCO2 ABG 58.7 mmHg (35.0-45.0); PO2 ABG 94.9 mmHg (80.0-100.0); PO2 FiO2 Ratio Arterial Blood 2.71 %; Total Hemoglobin 10.4 g/dL (12.0-18.0); pH ABG 7.403 (7.350-7.450)
[2023-07-28 09:27] LABS: Device NON-INVASIVE VENT; Modified Allen's Test Pass; Site Drawn RIGHT RADIAL
[2023-07-28 09:28] LABS: Non-Invasive Expiratory Pressure 8 CMH2O; Non-Invasive Inspiratory Pressure 18 CMH2O; Non-Invasive Vent Rate 20 /MIN
[2023-07-28] MEDS: ALBUTEROL SULFATE (*SP) AEROSOL 1 PUFF 2 PUFF INHALATION ×2 (09:40→20:24)
[2023-07-28 10:53] LABS: Hepatitis B Surface Antigen Negative (Negative)
[2023-07-28 10:59] LABS: HAV RESULT Negative (Negative); Hepatitis B Core IgM Result Negative (Negative)
[2023-07-28 11:10] LABS: Hepatitis C Virus Antibody Negative (Negative)
[2023-07-28] MEDS: LORATADINE 10 MG TABLET PO (11:13)
[2023-07-28] MEDS: GABAPENTIN 300 MG CAPSULE PO ×3 (11:13→17:18)
[2023-07-28] MEDS: busPIRone HCL 2.5 MG TABLET PO ×2 (11:13→21:11)
[2023-07-28] MEDS: FUROSEMIDE 20 MG TABLET PO (11:13)
[2023-07-28] MEDS: APIXABAN 2.5 MG TABLET PO ×2 (11:13→17:18)
[2023-07-28] MEDS: allopurinoL 100 MG TABLET PO ×2 (11:13→17:18)
[2023-07-28] MEDS: SERTRALINE HCL 50 MG TABLET 100 MG PO (11:13)
[2023-07-28] MEDS: busPIRone HCL 5 MG TABLET PO ×2 (11:13→21:11)
[2023-07-28] MEDS: SODIUM CHLORIDE 1 GM TABLET PO ×2 (11:14→17:18)
[2023-07-28] MEDS: MICONAZOLE NITRATE 2% CREAM 30 GM TUBE 1 APPLIC TOPICAL ×2 (11:14→17:18)
[2023-07-28] MEDS: PANTOPRAZOLE 40 MG TABLET PO (11:14)
[2023-07-28] MEDS: HYDROCORTISONE 1% 30 GM CREAM 1 APPLIC TOPICAL ×2 (11:14→17:18)
[2023-07-28] MEDS: FLUTICASONE PROPIONATE 0.05% NA SPR 16 GM BTL (*BKC) 1 SPRAY NASAL (11:14)
--- NOTE | 2023-07-28 12:18 | PM.CNPUL ---
Assessment and Plan Assessment and plan (1) Obesity hypoventilation syndrome: Code(s): E66.2 - Morbid (severe) obesity with alveolar hypoventilation Status: Acute Assessment and Plan: Patient is morbidly obese with a BMI of 65.2, she has no evidence of fluid overload, no evidence of asthma or COPD exacerbation currently, her TSH is 1.03. Patient has chronic hypercarbic respiratory failure with a blood gas on 09/23/2019 with a pH of 7.29/55/73 on 2 L nasal and a PaCO2 has been greater than 53 on multiple blood gases since then. The patient has obesity hypoventilation syndrome and would benefit from noninvasive ventilation to prevent further deterioration and subsequent hospitalizations. 07/28: Plan: I will place the patient on BiPAP rate of 20 pressures 18/8, inspiratory time 1.25, rise of 3 and 32% FiO2. I will check an overnight oximetry on these settings and a blood gas prior to removal. Patient has no clinical symptoms of a pneumonia and is currently on ceftriaxone and doxycycline. Blood cultures were not sent. If placing is clinically stable tomorrow will discontinue antibiotics. Patient also has a history of an elevated right hemidiaphragm and I will obtain a sniff test. I will obtain a echocardiogram to assess LV, RV function and pulmonary pressures. Patient has pedal edema and she is on Lasix 20 per hospitalist team, I will check a BNP, free T4 in the morning. Discussed with Dr. Costello, will follow with you History of Present Illness History of Present Illness Consult date: 07/28/23 Chief complaint: hypercapnia Narrative: 07/28/2023: This is a new pulmonary consult for hypercarbic respiratory failure. 72-year-old with a history of hypertension, COPD, chronic hypercarbic and hypoxemic respiratory failure on 2 L nasal cannula, morbid obesity, congestive heart failure, rheumatoid arthritis and diabetes. Patient presented to the emergency department on 07/27/2023 with confusion and a blood gas demonstrated a pH of 7.25/86 and the patient was started on BiPAP with improved mentation. Her white blood cell count was 5.6, creatinine was 1.80, her serum bicarbonate was 39, her COVID RT PCR study was negative. Chest x-ray demonstrated right mid lung infiltrate. Patient wore BiPAP rate set rate of 20, 18/8 and 35% FiO2 overnight with a blood gas this morning of 7.40/59/95. Patient was placed on 2 L nasal cannula and currently her saturations are 93%. The patient denies any childhood or adult heard respiratory illnesses. Patient states that she started having difficulty breathing approximately 1 year ago when she moved into [facility]. For 1 year she has been unable to walk or get to a chair by herself due to progressive weakness him a moped morbid obesity. She uses a Gabby lift to get to a chair. The patient tells me and she uses 2 L nasal cannula at night only. The patient tells me she was diagnosed with obstructive sleep apnea 4 years ago with a sleep study and wore CPAP machine that helped her. She stopped wearing her CPAP 1 year ago. The patient tells me she was diagnosed with asthma and COPD approximately 1 year ago and given inhalers. She states she is on 2 inhalers although her home medicine list includes albuterol inhaler and albuterol nebulizer only. Patient is a never smoker. Patient was exposed to secondhand smoke from both of her parents and through her partner until earlier this year. Patient does smoke marijuana her last use was in . 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 07/28: Patient tells me she is breathing back to her baseline. She denies fever, chills, rigors, cough. Intermittently she has phlegm over the last year. She denies hemoptysis. Her white blood cell count is 5.7, creatinine is 1.50, her bicarbonate is greater than 40, her TSH is 1.03. Isela
--- NOTE | 2023-07-28 12:21 | ECHO_ITS ---
Patient Info Name: Delilah Ludwig Age: 72 years : 1950 Gender: Female Ht: 63 in Wt: 368 lbs BSA: 2.84 m2 HR: 78 bpm BP: 142 / 94 mmHg Heart Rhythm: Sinus Rhythm Technical Quality: Fair Exam Date: 07/28/2023 2:33 PM Exam Location: Echo Lab Exam Room: [facility] [place] Patient Status: Inpatient Admit Date: 07/27/2023 Staff Ordering Physician: Phillip Silva MD Refrigerator Glazier: Carmen Mccain RDCS Attending Provider: Latosha Cornelius MD Referring Physician: Ricardo BURCIAGA; Exam Type: CA echo dop color flow w con Study Info Indications - assess lv rv function/ pulm pressures Complete two-dimensional, color flow and Doppler transthoracic echocardiogram is performed with contrast to opacify the left ventricle and to improve the deliniation of the left ventricle endocardial borders. Contrast/Agitated Saline Contrast/Ag. Saline: Definity Amount: 2.00 ml Administered By: Carmen Mccain [facility] [place] Existing IV Access: Yes IV Access Condition: patent with no signs of infiltration Summary 1. Left ventricular chamber dimension is normal. 2. Left ventricular systolic function is normal, estimated at 60-65%. 3. The left ventricular diastolic function is grade I diastolic dysfunction. 4. Right ventricular chamber dimension is mildly enlarged. 5. Right ventricular systolic function is normal. 6. Left atrial chamber dimension is moderately enlarged. 7. Right atrial chamber dimension is mildly enlarged. 8. There is moderate tricuspid valve regurgitation. 9. Estimated pulmonary arterial systolic pressure is 63 mmHg. Left Ventricle Left ventricular chamber dimension is normal. Left ventricular systolic function is normal, estimated at 60-65%. There is no increased left ventricular wall thickness. The left ventricular diastolic function is grade I diastolic dysfunction. Right Ventricle Right ventricular chamber dimension is mildly enlarged. Right ventricular systolic function is normal. Left Atria Left atrial chamber dimension is moderately enlarged. Right Atria Right atrial chamber dimension is mildly enlarged. Atrial Septum Intact interatrial septum visualized by color flow imaging. Aortic Valve The aortic valve is probable trileaflet. There is no aortic valve stenosis. There is no aortic valve regurgitation. There is mild aortic valve calcification. Pulmonic Valve The pulmonic valve is not well visualized. Mitral Valve There is trace mitral valve regurgitation. The mitral valve annulus is mildly calcified. Tricuspid Valve There is moderate tricuspid valve regurgitation. Estimated pulmonary arterial systolic pressure is 63 mmHg. Pericardium/Pleural There is no pericardial effusion. Inferior Vena Cava Normal inferior vena cava with <50% collapse upon inspiration consistent with elevated right atrial pressure, 8 mmHg. Aorta The aortic root size at the sinus of Valsalva is normal. Left Ventricular Outflow Tract Name Value Normal LVOT 2D LVOT Diameter 2.13 cm LVOT Doppler LVOT Peak Gradient 4 mmHg LVOT Mean Gradient 3 mmHg LVOT VTI 20.64 cm LVOT
[2023-07-28 13:35] LABS: Glucose Point of Care 196 mg/dl (65-105)
[2023-07-28] MEDS: PERFLUTREN LIPID MICROSPHERES 1.5 ML VIAL DILUTED TO 10 ML TOTAL VOLUME IV PUSH (15:40)
--- NOTE | 2023-07-28 16:09 | IVDEFINITY ---
Prior to administration of IV Definity the patient was educated on the risks and benefits of the imaging enhancing agent including potential adverse side effects. The patient verbalized understanding. Allergies were verified. No exclusion criteria were identified and at least one of the following inclusion criteria were met: 1) physician request, 2) patient technically difficult to image (per the [place] [employer] Echocardi[employer] guidelines of two or more segments not discernable within the apical view), or 3) questionable left ventricular function. ?
[2023-07-28 18:29] LABS: Glucose Point of Care 167 mg/dl (65-105)
[2023-07-28 19:55] LABS: Glucose Point of Care 216 mg/dl (65-105)
--- NOTE | 2023-07-28 20:31 | PCRCNOTE ---
pt refuses Apnea link, states she does not know why she needs it and was never told about having to get one, explained to pt the reason why however she states she wants to hold off for tonight.
[2023-07-28] MEDS: rOPINIRole HCL 1 MG TABLET 4 MG PO (21:10)
[2023-07-28] MEDS: INSULIN ASPART (*BKC) 100 UNITS/ML SUB-Q (21:11)
[2023-07-28] MEDS: MIRABEGRON 25 MG ER TABLET PO (21:11)
[2023-07-28] MEDS: ATORVASTATIN 40 MG TABLET 80 MG PO (21:11)
[2023-07-28] MEDS: INSULIN GLARGINE (*BKC) 100 UNITS/ML 42 UNITS SUB-Q (21:12)
[2023-07-29] VITALS (12 sets, daily range): BP systolic 111–136; BP diastolic 51–70; PULSE 74–97; RESP 16–23; TEMP 36.2–37.1; O2SAT 92–97
[2023-07-29 05:57] LABS: Alveolar/Arterial O2 Gradient 80.4 mmHg; Base Excess ABG 8.9 mEq/l (+/-2.0); Fractional Inspired Oxygen 32 %; HCO3 ABG 35.8 mEq/l (22.0-26.0); Oxygen Content ABG 13.8 %vol (16.0-22.0); Oxygen Saturation ABG 94.2 % (95.0-100.0); Oxyhemoglobin 93.2 % THb (90.0-100.0); PO2 ABG 74.4 mmHg (80.0-100.0); PO2 FiO2 Ratio Arterial Blood 2.33 %; Total Hemoglobin 10.5 g/dL (12.0-18.0); pH ABG 7.375 (7.350-7.450)
[2023-07-29 05:58] LABS: Device BIPAP; Modified Allen's Test Pass; PCO2 ABG 62.7 mmHg (35.0-45.0); Site Drawn RIGHT RADIAL
[2023-07-29 05:59] LABS: Expiratory Pressure 8 cmH2O; Inspiratory Pressure 18 cmH2O
[2023-07-29 06:32] LABS: Basophils Absolute Auto 0.1 K/mm3 (0.0-0.1); Eosinophils Absolute Auto 0.2 K/mm3 (0-0.3); Eosinophils Percent Auto 3.7 % (0-4.4); Hematocrit 34.7 % (37.0-47.0); Hemoglobin 9.6 g/dL (12.0-15.0); Immature Granulocyte Absolute 0.03 K/mm3 (0.00-0.031); Immature Granulocyte Percent A 0.6 % (0-0.5); Lymphocytes Percent Auto 17.5 % (18.3-44.2); Mean Corpuscular HGB Conc 27.7 g/dl (32-36); Mean Corpuscular Hemoglobin 22.6 pg (26-34); Mean Corpuscular Volume 81.6 fl (80-100); Monocytes Absolute Auto 0.6 K/mm3 (0.1-0.6); Monocytes Percent Auto 11.5 % (2.6-8.5); Neutrophils Absolute Auto 3.4 K/mm3 (1.3-6.7); Neutrophils Percent Auto 65.7 % (45.5-73.1); Platelet Count Result 215 k/mm3 (150-375); Red Blood Count 4.25 M/mm3 (4.2-5.4); Red Cell Distribution Width 16.7 % (11.5-14.5); White Blood Count 5.1 K/mm3 (4.5-10.0)
[2023-07-29 06:47] LABS: Alanine Aminotransferase 162 U/L (6-35); Albumin Level 3.2 g/dL (3.5-5.1); Alkaline Phosphatase 81 U/L (38-126); Anion Gap 3 mmol/L (8-16); Aspartate Amino Transferase 74 U/L (14-36); Bilirubin,Total 0.6 mg/dL (0.2-1.3); Blood Urea Nitrogen 40 mg/dL (7-17); Calcium 8.4 mg/dL (8.4-10.2); Carbon Dioxide 36 mmol/L (22-30); Chloride 96 mmol/L (98-107); Estimated CRCL calculation 60 ml/min; Estimated Glomerular Filt Rate 44; Glucose 178 mg/dL (65-110); Potassium 4.1 mmol/L (3.4-5.0); Sodium 135 mmol/L (137-145)
[2023-07-29 06:50] LABS: NT Pro B Type Natriuretic Pept 1150 pg/mL (19.9-100)
[2023-07-29 07:12] LABS: Free T4 Free Thyroxine 1.37 ng/mL (0.78-2.19)
[2023-07-29] MEDS: ALBUTEROL SULFATE (*SP) AEROSOL 1 PUFF 2 PUFF INHALATION (07:20)
[2023-07-29 07:38] LABS: Hypochromasia 1+ (NORMAL); Platelet Estimate Adequate (Adequate); Schistocytes None Seen (NORMAL); Stomatocytes 1+ (NORMAL)
[2023-07-29 07:41] LABS: Glucose Point of Care 161 mg/dl (65-105)
--- NOTE | 2023-07-29 09:00 | PM.PNPUL ---
Progress Note: A&P Assessment and Plan (1) Obesity hypoventilation syndrome: Code(s): E66.2 - Morbid (severe) obesity with alveolar hypoventilation Status: Acute Assessment and Plan: Patient is morbidly obese with a BMI of 65.2, she has no evidence of fluid overload, no evidence of asthma or COPD exacerbation currently, her TSH is 1.03. Patient has chronic hypercarbic respiratory failure with a blood gas on 09/23/2019 with a pH of 7.29/55/73 on 2 L nasal and a PaCO2 has been greater than 53 on multiple blood gases since then. The patient has obesity hypoventilation syndrome and would benefit from noninvasive ventilation to prevent further deterioration and subsequent hospitalizations. 07/28: Plan: I will place the patient on BiPAP rate of 20 pressures 18/8, inspiratory time 1.25, rise of 3 and 32% FiO2. I will check an overnight oximetry on these settings and a blood gas prior to removal. Patient has no clinical symptoms of a pneumonia and is currently on ceftriaxone and doxycycline. Blood cultures were not sent. If placing is clinically stable tomorrow will discontinue antibiotics. Patient also has a history of an elevated right hemidiaphragm and I will obtain a sniff test. I will obtain a echocardiogram to assess LV, RV function and pulmonary pressures. Patient has pedal edema and she is on Lasix 20 per hospitalist team, I will check a BNP, free T4 in the morning. Later in the day the patient had a sniff study with no paradoxical movement of the right hemidiaphragm but there was hypo mobility. Echocardiogram demonstrated an LVEF of 60 65%, grade 1 diastolic dysfunction, mild right ventricle and right atrial enlargement, normal right ventricular function, moderate left atrial enlargement calmer and moderate TR with a PASP of 63. 07/29/23: Patient states she is breathing at her normal baseline today. Currently she is on 2 L nasal cannula saturations 93%. Patient wore the hospital BiPAP with a set rate of 20, pressures 18/8 and 32% FiO2. Patient had an ABG prior to removal with a pH of 7.38/63/74. Plan: The patient is afebrile, no respiratory complaints, no cough, phlegm production. I do not believe she has a pneumonia and recommend discontinuing antibiotics. patient's current BiPAP settings provide adequate ventilation. From a pulmonary perspective patient is ready to be discharged on these pulmonary medications: Albuterol 2 puffs q.4 hours p.r.n. shortness of breath or wheezing Oxygen at rest and with ambulation per [facility] protocol. Currently the patient is on 2 L nasal cannula at rest with saturations 93%. When patient naps or sleeps BiPAP rate of 20, inspiratory pressure 18, expiratory pressure 8, 3 L bleed in. To follow-up in the Pulmonary Clinic in 3-4 weeks. I gave her our business card and informed our scheduler maintenance. Discussed with Dr. Costello, will sign off. Call with questions. Subjective Date/time seen: 07/29/23 09:00 Interval history: 07/28/2023: This is a new pulmonary consult for hypercarbic respiratory failure.? 72-year-old with a history of hypertension, COPD, chronic hypercarbic and hypoxemic respiratory failure on 2 L nasal cannula, morbid obesity, congestive heart failure, rheumatoid arthritis and diabetes. Patient presented to the emergency department on 07/27/2023 with confusion and a blood gas demonstrated a pH of 7.25/86 and the patient was started on BiPAP with improved mentation.? Her white blood cell count was 5.6, creatinine was 1.80, her serum bicarbonate was 39, her COVID RT PCR study was negative.? Chest x-ray demonstrated right mid lung infiltrate.? Patient wore BiPAP rate set rate of 20, 18/8 and 35% FiO2 overnight with a blood gas this morning of 7.40/59/95.? Patient was placed on 2 L nasal cannula and currently her saturations are 93%. The patient denies any childhood or adult heard respiratory illnesses.? Patient states that she started having difficulty breathing a
[2023-07-29] MEDS: DOXYCYCLINE HYCLATE 100 MG TABLET PO (09:53)
[2023-07-29] MEDS: LORATADINE 10 MG TABLET PO (09:53)
[2023-07-29] MEDS: SERTRALINE HCL 50 MG TABLET 100 MG PO (09:53)
[2023-07-29] MEDS: busPIRone HCL 2.5 MG TABLET PO (09:53)
[2023-07-29] MEDS: allopurinoL 100 MG TABLET PO (09:53)
[2023-07-29] MEDS: GABAPENTIN 300 MG CAPSULE PO ×2 (09:53→12:03)
[2023-07-29] MEDS: SODIUM CHLORIDE 1 GM TABLET PO (09:53)
[2023-07-29] MEDS: FUROSEMIDE 20 MG TABLET PO (09:53)
[2023-07-29] MEDS: APIXABAN 2.5 MG TABLET PO (09:54)
[2023-07-29] MEDS: FLUTICASONE PROPIONATE 0.05% NA SPR 16 GM BTL (*BKC) 1 SPRAY NASAL (09:54)
[2023-07-29] MEDS: HYDROCORTISONE 1% 30 GM CREAM 1 APPLIC TOPICAL (09:54)
[2023-07-29] MEDS: PANTOPRAZOLE 40 MG TABLET PO (09:54)
[2023-07-29] MEDS: MICONAZOLE NITRATE 2% CREAM 30 GM TUBE 1 APPLIC TOPICAL (09:54)
[2023-07-29] MEDS: busPIRone HCL 5 MG TABLET PO (09:54)
[2023-07-29] MEDS: INSULIN GLARGINE (*BKC) 100 UNITS/ML 28 UNITS SUB-Q (09:57)
--- NOTE | 2023-07-29 10:28 | PM.DS ---
DS: Admitting Diagnosis Discharge Date 07/29/23 Admitting Diagnosis resp failure DS: Discharge Diagnosis Discharge Diagnosis (1) Acute on chronic respiratory failure with hypoxia and hypercapnia: Code(s): J96.21 - Acute and chronic respiratory failure with hypoxia; J96.22 - Acute and chronic respiratory failure with hypercapnia Status: Acute Assessment and Plan: Worsening hypercapnia, possibly secondary to underlying pneumonia versus atelectasis? Appreciate pulmonology consultation, likely needs chronic nocturnal CPAP versus BiPAP (2) Abnormal chest x-ray: Code(s): R93.89 - Abnormal findings on diagnostic imaging of other specified body structures Status: Acute Assessment and Plan: Continue Rocephin and doxycycline for possible pneumonia, initiated 07/27 (3) Encephalopathy: Code(s): G93.40 - Encephalopathy, unspecified Status: Acute Assessment and Plan: Resolved (4) Chronic obstructive pulmonary disease: Code(s): J44.9 - Chronic obstructive pulmonary disease, unspecified Status: Acute Assessment and Plan: Does not appear to be in acute exacerbation (5) Chronic kidney disease: Code(s): N18.9 - Chronic kidney disease, unspecified Status: Acute Assessment and Plan: Fluctuates between 1.3-1.9, stable at 1.5 today (6) Congestive heart failure: Code(s): I50.9 - Heart failure, unspecified Status: Acute Assessment and Plan: Appeared to be in mild exacerbation at admission, resolving, monitor on oral diuresis (7) Insulin dependent type 2 diabetes mellitus: Code(s): E11.9 - Type 2 diabetes mellitus without complications; 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 Hypoperfusion? Plan DVT prophylaxis with eliquis GI prophylaxis not indicated Code status full code DS: Summary Hospital Course Hospital Course: 72-year-old female with he congestive heart failure, hypertension, dyslipidemia, chronic obstructive pulmonary disease, chronic respiratory failure on 2 L nasal cannula, rheumatoid arthritis, insulin-dependent type 2 diabetes mellitus, morbid obesity, and other comorbidities who presented to the emergency department via EMS for evaluation of confusion and is being treated for hypercapnia. The patient is afebrile, no respiratory complaints, no cough, phlegm production.? I do not believe she has a pneumonia and recommend discontinuing antibiotics.? patient's current BiPAP settings provide adequate ventilation.? From a pulmonary perspective patient is ready to be discharged on these pulmonary medications: Albuterol 2 puffs q.4 hours p.r.n. shortness of breath or wheezing Oxygen at rest and with ambulation per [facility] protocol.? Currently the patient is on 2 L nasal cannula at rest with saturations 93%.? When patient naps or sleeps BiPAP rate of 20, inspiratory pressure 18, expiratory pressure 8, 3 L bleed in. To follow-up in the Pulmonary Clinic in 3-4 weeks. All symptoms improved. Please see above and med rec for details. Patient was discharged in stable condition with close outpatient follow-up back to her nursing facility. Time Spent with Patient Time attestation: Total time spent providing and/or coordinating discharge services: Exam Narrative: General: No acute dist
--- NOTE | 2023-07-29 10:51 | P.CDI_ITS ---
CDI Query Clarification Request Documented history of CHF. CHF noted in the assessment and plan. Elevated BNP on 07/29/23 lab work. Lasix listed as a home medication. Patient receiving Lasix. Please specify type and acuity of heart failure if known. * Acute * Chronic * Acute on Chronic * Unknown * Systolic * Diastolic * Combined Systolic and Diastolic * Unknown <Lamar Santos RN - Last Filed: 07/29/23 10:54> Clarified Diagnosis Clarified Diagnosis: acute on chronic diastolic dysfunction <Mitzy Costello DO - Last Filed: 07/29/23 13:51>
[2023-07-29 11:30] LABS: Glucose Point of Care 212 mg/dl (65-105)
[2023-07-29] MEDS: INSULIN ASPART (*BKC) 100 UNITS/ML SUB-Q (12:03)
== END 2023-07-29 14:55 | DRG 189 ==
LOC: ANHED 11:58 → ANHIMU 14:57
PROVIDERS: Emergency Medicine; Internal Medicine Pulmonary Disease; Physician Assistant; Student in an Organized Health Care Education/Training Program; Admitting Provider General Practice; Emergency Provider Nurse Practitioner Family; PCP Hospitalist; Visit Provider General Practice
DX: J96.21 Acute and chronic respiratory failure with hypoxia (principal); I50.33 Acute on chronic diastolic (congestive) heart failure; I13.0 Hypertensive heart and chronic kidney disease with heart failure and stage 1 through stage 4 chronic kidney disease, or unspecified chronic kidney disease; Z68.44 Body mass index [BMI] 60.0-69.9, adult; G93.40 Encephalopathy, unspecified; E66.2 Morbid (severe) obesity with alveolar hypoventilation; J96.22 Acute and chronic respiratory failure with hypercapnia; D63.1 Anemia in chronic kidney disease; E78.5 Hyperlipidemia, unspecified; E11.22 Type 2 diabetes mellitus with diabetic chronic kidney disease; E11.42 Type 2 diabetes mellitus with diabetic polyneuropathy; F41.8 Other specified anxiety disorders; J44.9 Chronic obstructive pulmonary disease, unspecified; M06.9 Rheumatoid arthritis, unspecified; N18.30 Chronic kidney disease, stage 3 unspecified; Z20.822 Contact with and (suspected) exposure to COVID-19; Z99.81 Dependence on supplemental oxygen; Z99.3 Dependence on wheelchair; Z79.4 Long term (current) use of insulin; Z79.85 Long-term (current) use of injectable non-insulin antidiabetic drugs; Z79.01 Long term (current) use of anticoagulants; Z91.199 Patient's noncompliance with other medical treatment and regimen due to unspecified reason
CPT/HCPCS: 36415; 36600; 70450; 71045; 76000; 80048; 80053; 80074; 80076; 81001; 82375; 82805; 82948; 83050; 83735; 83880; 84439; 84443; 85025; 85027; 85610; 85730; 87070; 87086; 87088; 87205; 87635; 93005; 94002; 94640; 99285; A9270; C8929; J0696; J1815; J1940; Q9957

== ENCOUNTER 2023-09-28 14:42 | Outpatient (NON) | payer MEDICARE, MEDICAID, SELFPAY ==
[2023-09-28 15:30] LABS: Influenza A QL RT-PCR Negative (Negative); Influenza B QL RT-PCR Negative (Negative); RSV RNA, RT-PCR Positive (Negative); SARS-CoV-2 RNA PCR Negative (Negative)
== END 2023-09-28 14:43 | disposition home or self-care (01) ==
PROVIDERS: PCP Hospitalist; Visit Provider Hospitalist
DX: R09.81 Nasal congestion (principal); Z20.822 Contact with and (suspected) exposure to COVID-19
CPT/HCPCS: 87637

== ENCOUNTER 2023-09-29 04:42 | Inpatient (IN) | payer MEDICARE, MEDICAID, SELFPAY ==
[2023-09-29] VITALS (45 sets, daily range): BP systolic 106–163; BP diastolic 60–102; PULSE 84–120; RESP 15–22; TEMP 36.9–37.2; O2SAT 80–100; BMI 67.5
--- NOTE | ~2023-09-29 | CT_ITS ---
EXAMINATION: CT brain wo con DATE: 10/12/2023 11:46 INDICATION: Confusion. TECHNIQUE: Computed tomography (CT) of the head was performed without intravenous contrast. The mA wa s adjusted according to patient size. Iterative reconstruction technique was employed. The dose-lengt h product was 908.00 mGy-cm. COMPARISON: Head CT 09/29/2023 FINDINGS: There are scattered areas of low attenuation in the cerebral white matter, which is within normal limits for the patient's age. There is an old lacunar infarct in the arsh. There is no intracr anial hemorrhage, acute infarction, or abnormal intracranial mass lesion. The ventricles are normal i n size. There is mucosal thickening in the paranasal sinuses. There are likely changes of left ocular lens replacement surgery. There is a trace left mastoid effusion. Partially visualized is extensive dental disease. IMPRESSION: 1. Old lacunar infarct in the arsh. 2. Extensive dental disease. Reviewed, dictated and finalized at location A. OGEN CELL TENDER
--- NOTE | ~2023-09-29 | CT_ITS ---
EXAMINATION: CT diagnostic chest wo con DATE: 09/29/2023 08:33 INDICATION: Respiratory failure TECHNIQUE: Computed tomography (CT) of the chest was performed without intravenous contrast. Automate d exposure control and iterative reconstruction technique were employed. Exam dose: 1048.03 mGy-cm t otal exam DLP. COMPARISON: 09/29/2023 portable AP chest 12/30/2022 CT pulmonary scan FINDINGS: ET tube is situated at the vidal, distal tip directed toward the right mainstem bronchus. Proximal repositioning is recommended. There is an NG tube in the intra-abdominal portion of the stomach. There is posterior segment right upper lobe discoid atelectasis and prominent right lower lobe atelec tasis with air bronchograms. There is rightward shift of the heart mediastinum as a result of the rig ht lung atelectasis. There is groundglass infiltrate in the anteromedial left upper lobe and minimal dependent atelectasis of the left upper and lower lobes. Cardiomegaly. No pericardial or pleural effusion. No thoracic aortic aneurysm. No apparent hilar or mediastinal mass lesion or adenopathy is noted on this limited noncontrast exami nation. Large hiatal hernia. Indeterminate exophytic mass is suggested at the posterior aspect of the mid left kidney. The examina tion is limited due to the extensive streak artifact apparently due to overlapping upper extremities and body habitus. IMPRESSION: ET tube tip situated near the origin of the right mainstem bronchus. Proximal ET tube re positioning is recommended. Posterior segment right upper lobe and more prominent right lower lobe atelectasis with rightward vanessa ft of heart and mediastinum Cardiomegaly Left upper lobe groundglass density consistent with atelectasis or infiltrate and minimal dependent l eft upper and lower lobe atelectasis Large hiatal hernia; NG tube in intra-abdominal stomach Suspected exophytic posterior mid left renal mass, not well-demonstrated Reviewed, dictated and finalized at Location A. Reviewed, dictated and finalized at location B. PRESIDENT IMPRESSION: ET tube tip situated near the origin of the right mainstem bronchu s. Proximal ET tube repositioning is recommended. Posterior segment right upper lobe and more prominent right lower lobe atelecta sis with rightward shift of heart and mediastinum Cardiomegaly Left upper lobe groundglass density consistent with atelectasis or infiltrate a nd minimal dependent left upper and lower lobe atelectasis Large hiatal hernia; NG tube in intra-abdominal stomach Suspected exophytic posterior mid left renal mass, not well-demonstrated
--- NOTE | ~2023-09-29 | XR_ITS ---
EXAMINATION: XR abdomen gastric tube insert DATE: 10/06/2023 21:15 INDICATION: Orogastric tube placement. TECHNIQUE: A supine view of the abdomen was obtained. COMPARISON: Abdomen radiograph 10/04/2023 FINDINGS: The lower abdomen is excluded. There are no dilated loops of bowel. The orogastric tube tip is in the distal esophagus. A right upper extremity peripherally inserted central venous catheter (P ICC) is seen with tip in the superior vena cava. The endotracheal tube tip is 13 mm above the vidal. IMPRESSION: 1. Orogastric tube tip in the distal esophagus. Reviewed, dictated and finalized at location E. OM CEMENTER
--- NOTE | ~2023-09-29 | XR_ITS ---
EXAMINATION: XR chest 1V portable INDICATION: Respiratory failure TECHNIQUE: Portable AP chest at 0540 hours COMPARISON: 10/01/2023 FINDINGS: The endotracheal tube ends approximately 2.5 cm above the vidal. A nasogastric tube is in the stomach. A right upper extremity PICC ends with its tip in the superior vena cava. The lung volum es are low. There are bibasilar and bilateral perihilar opacities. Cardiomegaly is noted. There is no pneumothorax. No definite pleural effusion is identified. IMPRESSION: 1. Bibasilar and bilateral perihilar opacities without significant change, consistent with atelectasi s versus pneumonia. 2. Cardiomegaly. Reviewed, dictated and finalized at location F. SUPPORT TECHNICIAN IMPRESSION: 1. Bibasilar and bilateral perihilar opacities without significant change, cons istent with atelectasis versus pneumonia. 2. Cardiomegaly.
--- NOTE | ~2023-09-29 | XR_ITS ---
EXAMINATION: XR chest 1V DATE: 10/12/2023 18:15 INDICATION: Shortness of breath TECHNIQUE: frontal view of the chest was obtained. COMPARISON: Chest radiograph dated 10/12/2023 FINDINGS: Patient is rotated towards the right. Right upper extremity peripherally inserted central venous cath eter has been removed. Unchanged mild elevation the right hemidiaphragm. Opacities at the medial righ t lung base which could represent atelectasis or pneumonia. No pulmonary edema, pleural effusion or p neumothorax. Cardiomegaly. IMPRESSION: 1. Unchanged elevation of the right hemidiaphragm with opacities at the medial right lower lung zone which could represent atelectasis or pneumonia. 2. Cardiomegaly. Reviewed, dictated and finalized at location A. TEACHING GRADES 9 THRU 12 TEACHER
--- NOTE | ~2023-09-29 | XR_ITS ---
Portable chest x-ray Comparison: 09/30/2023 Clinical History: Respiratory failure Findings: Endotracheal tube and NG tube are in place. There is patchy bilateral airspace disease, an d possible minimal pleural effusions. Cardiomediastinal silhouette is stable. Bones and soft tissues are unremarkable. Impression: Patchy airspace disease suggest mild pulmonary edema, with probable small pleural effusions. Correlat e currently for infection. Support tubes, as above. Reviewed, dictated and finalized at location . OLOGIC TECHNOLOGIST MAMMOGRAM Impression: Patchy airspace disease suggest mild pulmonary edema, with probable small pleur al effusions. Correlate currently for infection. Support tubes, as above.
--- NOTE | ~2023-09-29 | XR_ITS ---
EXAMINATION: [id number]_[id number]_CR DATE: 10/12/2023 18:15 INDICATION: Left knee pain TECHNIQUE: AP and lateral views of the left knee were obtained. COMPARISON: CT dated 10/12/2023 FINDINGS: Again seen is a comminuted intra-articular fracture of the proximal left femur. No significant displa cement of the medial and lateral condylar fragments relative to each other or to the proximal tibia. Mild impaction, 1.2 cm lateral displacement and mild valgus angulation of the condylar fragments rela tive to the metadiaphyseal region of the more proximal femur. Tricompartmental osteoarthritis with ad vanced osteoarthritis in the medial compartment with remodeling along the medial tibial plateau. IMPRESSION: 1. Displaced and mildly angulated comminuted intra-articular fracture of the distal left femur. See s eparate CT report for further detail. 2. Tricompartmental osteoarthritis at the left knee, advanced in the medial compartment. Reviewed, dictated and finalized at location A. IC RELATIONS ACCOUNT EXECUTIVE IMPRESSION: 1. Displaced and mildly angulated comminuted intra-articular fracture of the di stal left femur. See separate CT report for further detail. 2. Tricompartmental osteoarthritis at the left knee, advanced in the medial com partment.
--- NOTE | ~2023-09-29 | XR_ITS ---
EXAMINATION: XR chest 1V portable DATE: 10/05/2023 05:22 INDICATION: Respiratory failure. TECHNIQUE: A single frontal view of the chest was obtained. COMPARISON: Chest single view 10/04/2023, chest CT 09/29/2023 FINDINGS: There are airspace opacities in the perihilar regions and at the lung bases. No pleural eff usion or pneumothorax. Cardiomegaly is noted. The endotracheal tube tip is 3.5 cm above the vidal. T he nasogastric tube tip is beyond the inferior margin of the radiograph, but at least to the stomach. A right upper extremity peripherally inserted central venous catheter (PICC) is seen with tip in the superior vena cava. IMPRESSION: 1. Stable airspace opacities in the perihilar regions and at the lung bases, consistent with atelecta sis versus pneumonia. 2. Cardiomegaly. Reviewed, dictated and finalized at location A. SOURCE INTELLIGENCE IMPRESSION: 1. Stable airspace opacities in the perihilar regions and at the lung bases, co nsistent with atelectasis versus pneumonia. 2. Cardiomegaly.
--- NOTE | ~2023-09-29 | XR_ITS ---
Portable chest x-ray Comparison: 09/29/2023 Clinical History: Respiratory failure Findings: Endotracheal tube and NG tube are in satisfactory positions. There is probable minimal int erstitial pulmonary edema. Cardiomediastinal silhouette is stable. Bones and soft tissues are unrema rkable. Impression: Suspected minimal interstitial edema. Support tubes, as above. Reviewed, dictated and finalized at location . ETHYLENE BAG MACHINE OPERATOR Impression: Suspected minimal interstitial edema. Support tubes, as above.
--- NOTE | ~2023-09-29 | XR_ITS ---
Portable chest x-ray Comparison: 07/27/2023 Clinical History: Dyspnea Findings: Questionable minimal bibasilar haziness. Cardiomediastinal silhouette is stable. Bones an d soft tissues are unremarkable. Impression: Questionable minimal bibasilar pulmonary edema. Reviewed, dictated and finalized at location . E SPECIALIST Impression: Questionable minimal bibasilar pulmonary edema.
--- NOTE | ~2023-09-29 | XR_ITS ---
EXAMINATION: XR abdomen gastric tube rechec DATE: 10/06/2023 21:19 INDICATION: Orogastric tube placement. TECHNIQUE: A supine view of the abdomen was obtained. COMPARISON: Abdomen radiograph 10/06/2023, chest CT 09/29/2023 FINDINGS: The lower abdomen is excluded. The orogastric tube tip is in the hiatal hernia above the di aphragm. The endotracheal tube tip is 1.4 cm above the vidal. IMPRESSION: 1. Orogastric tube tip in the hiatal hernia above the diaphragm. Reviewed, dictated and finalized at location E. IAL SHOPPER
--- NOTE | ~2023-09-29 | XR_ITS ---
EXAMINATION: XR hip BI 2V w AP pelvis DATE: 10/12/2023 18:15 INDICATION: Pelvic pain TECHNIQUE: Anteroposterior view of the pelvis and anteroposterior and frog-leg lateral views of the l eft hip and anteroposterior and frog-leg lateral views of the right hip and were obtained. COMPARISON: CT dated 07/20/2022 FINDINGS: Bone alignment is normal. No evident fracture. Mild bilateral hip and sacroiliac osteoarthritis. Mild lumbar spondylosis with moderate to severe lower lumbar facet osteoarthritis. Multiple phleboliths i n the pelvis. IMPRESSION: 1. Mild bilateral hip and sacroiliac osteoarthritis. No acute osseous abnormality. 2. Mild lumbar spondylosis with moderate to severe lower lumbar facet osteoarthritis. Reviewed, dictated and finalized at location A. EWATER DESIGN ENGINEER IMPRESSION: 1. Mild bilateral hip and sacroiliac osteoarthritis. No acute osseous abnormali ty. 2. Mild lumbar spondylosis with moderate to severe lower lumbar facet osteoarth ritis.
--- NOTE | ~2023-09-29 | CT_ITS ---
EXAMINATION: CT knee LT wo con DATE: 10/12/2023 18:13 INDICATION: Left knee pain TECHNIQUE: High resolution computed tomography (CT) of the left knee was performed without intravenou s contrast. Additional sagittal and coronal reconstructions were performed. Automated exposure contro l and iterative reconstruction technique were employed. The dose-length product was 641.20 mGy-cm. COMPARISON: Radiograph dated 09/25/2019 FINDINGS: Comminuted intra-articular fracture of the distal left femur. T-shaped configuration of the fracture with oblique fracture lines extending from the medial and lateral supracondylar regions inferiorly to the intercondylar notch. There is impaction in the metaphyseal region of the fracture but with no si gnificant separation of the main medial and lateral condylar fragments. The fracture line extends cep halad from the intercondylar notch across the articular cortex of the medial trochlea. There is sever e osteoarthritis at the medial compartment. Moderate osteoarthritis in the lateral compartment and at least mild osteoarthritis at the patellofemoral compartment. There is a small layering lipohemarthro sis at the suprapatellar pouch. There is mild to moderate fatty atrophy of the musculature at the dis joanie thigh and proximal calf. IMPRESSION: 1. Impacted comminuted intra-articular fracture of the distal left femur with associated small lipohe marthrosis. 2. Tricompartmental osteoarthritis, severe in the medial compartment. Reviewed, dictated and finalized at location A. ACT CENTER ENGINEER IMPRESSION: 1. Impacted comminuted intra-articular fracture of the distal left femur with a ssociated small lipohemarthrosis. 2. Tricompartmental osteoarthritis, severe in the medial compartment.
--- NOTE | ~2023-09-29 | XR_ITS ---
EXAMINATION: XR chest 1V portable INDICATION: Respiratory failure TECHNIQUE: Portable AP chest at 0515 hours COMPARISON: 10/02/2023 FINDINGS: The endotracheal tube ends approximately 3.7 cm above the vidal. The nasogastric tube is i n the stomach. A right upper extremity PICC ends with its tip in the distal superior vena cava. Cardi omegaly is noted. There is a small right pleural effusion.. There is no pneumothorax. Bilateral perih ilar and left basilar airspace opacities have improved. There are persistent opacities of the right l bryce base. IMPRESSION: 1. Improving bilateral perihilar and left basilar airspace opacities, consistent with improving atele ctasis versus pneumonia versus pulmonary edema. 2. Small right pleural effusion with right basilar opacities, consistent with atelectasis versus pneu monia. 3. Cardiomegaly. Reviewed, dictated and finalized at location F. PHONE TRIAGE NURSE IMPRESSION: 1. Improving bilateral perihilar and left basilar airspace opacities, consisten t with improving atelectasis versus pneumonia versus pulmonary edema. 2. Small right pleural effusion with right basilar opacities, consistent with a telectasis versus pneumonia. 3. Cardiomegaly.
--- NOTE | ~2023-09-29 | XR_ITS ---
EXAM: XR abdomen gastric tube insert DATE: 10/04/2023 20:44 HISTORY: OG INSERT . COMPARISON: X-ray chest, same date. FINDINGS: Right basilar opacities and pleural blunting. NG tube, tip terminating in the proximal sto mach side port likely at the GE junction. Multiple air-filled loops of nondilated bowel in the upper abdomen. IMPRESSION: Shallow positioning of the NG tube, consider advancing 5 cm. Reviewed, dictated and finalized at location K. CIAL COURT INTERPRETER
--- NOTE | ~2023-09-29 | CT_ITS ---
EXAMINATION: CT brain wo con DATE: 09/29/2023 14:48 INDICATION: Altered mental status. TECHNIQUE: Computed tomography (CT) of the head was performed without intravenous contrast. The mA wa s adjusted according to patient size. Iterative reconstruction technique was employed. The dose-lengt h product was 681.00 mGy-cm. COMPARISON: Head CT 07/27/2023 FINDINGS: There are scattered areas of low attenuation in the cerebral white matter, which is within normal limits for the patient's age. There is an old lacunar infarct in the arsh. There is no intracr anial hemorrhage, acute infarction, or abnormal intracranial mass lesion. The ventricles are normal i n size. There is mucosal thickening in the paranasal sinuses. The orbits are normal. The mastoid air cells are normal. IMPRESSION: 1. Old lacunar infarct in the arsh. Reviewed, dictated and finalized at location A. CAL OFFICE ASSISTANT
--- NOTE | ~2023-09-29 | XR_ITS ---
EXAMINATION: XR abdomen gastric tube rechec DATE: 10/06/2023 22:16 INDICATION: Orogastric tube placement. TECHNIQUE: A supine view of the abdomen was obtained. COMPARISON: Abdomen radiograph at 9:05 PM FINDINGS: The lower abdomen is excluded. The orogastric tube tip is in the stomach below the diaphrag m. The endotracheal tube tip is 2.0 cm above the vidal. A right upper extremity peripherally inserte d central venous catheter (PICC) is seen with tip in the superior vena cava. IMPRESSION: 1. Orogastric tube tip in the stomach below the diaphragm. Reviewed, dictated and finalized at location E. [employer]
--- NOTE | ~2023-09-29 | XR_ITS ---
Portable chest x-ray Comparison: 09/29/2023 at 5:05 AM Clinical History: Tube placement Findings: Endotracheal tube and NG tube are in satisfactory position. Questionable minimal bibasilar groundglass opacity. Cardiomediastinal silhouette is stable. Bones and soft tissues are unremarkabl e. Impression: Support tubes, as above. Questionable minimal bibasilar pulmonary edema. Reviewed, dictated and finalized at location M. ESSIONAL BENEFITS SALES CONSULTANT Impression: Support tubes, as above. Questionable minimal bibasilar pulmonary edema.
--- NOTE | ~2023-09-29 | XR_ITS ---
Portable chest x-ray Comparison: 10/05/2023 Clinical History: Respiratory failure Findings: Endotracheal tube, NG tube, and right-sided PICC line are in place. Probable small bilater al pleural effusions with mild bibasilar pulmonary edema/atelectasis. Cardiomediastinal silhouette i s stable. Bones and soft tissues are unremarkable. Impression: Probable small pleural effusions with mild bibasilar pulmonary edema/atelectasis. Support tubes, as above. Reviewed, dictated and finalized at location M. SE RACK WORKER Impression: Probable small pleural effusions with mild bibasilar pulmonary edema/atelectasi s. Support tubes, as above.
--- NOTE | ~2023-09-29 | XR_ITS ---
Portable chest x-ray Comparison: 10/07/2023 Clinical History: Respiratory failure Findings: Endotracheal tube, NG tube, and right-sided PICC line are in satisfactory positions. There is central pulmonary disease bilaterally. Cardiomediastinal silhouette is stable. Bones and soft ti ssues are unremarkable. Impression: Central pulmonary edema and bibasilar atelectatic change. Correlate clinically for pneumonia. Support tubes, as above. Reviewed, dictated and finalized at location . K TESTER Impression: Central pulmonary edema and bibasilar atelectatic change. Correlate clinically for pneumonia. Support tubes, as above.
--- NOTE | ~2023-09-29 | XR_ITS ---
Portable chest x-ray Comparison: 09/29/2023 at 5:30 AM Clinical History: Respiratory Findings: Tube and NG tube are in place. There is probable minimal haziness at the right lung base a nd right upper lobe. Possible small right pleural effusion. Cardiomediastinal silhouette is stable. Bones and soft tissues are unremarkable. Impression: Minimal haziness inferior right upper lobe and right lung base. Correlate for pulmonary edema, atelec tasis or pneumonia. Minimal right pleural effusion. Support tubes, as detailed. Reviewed, dictated and finalized at location M. GATION ASSOCIATE Impression: Minimal haziness inferior right upper lobe and right lung base. Correlate for p ulmonary edema, atelectasis or pneumonia. Minimal right pleural effusion. Support tubes, as detailed.
--- NOTE | ~2023-09-29 | XR_ITS ---
Portable chest x-ray Comparison: 10/06/2023 Clinical History: Respiratory failure Findings: Endotracheal tube, NG tube, and right-sided PICC line are in satisfactory positions. There is mild bibasilar interstitial prominence. Cardiomediastinal silhouette is stable. Bones and soft t issues are unremarkable. Impression: Support tubes, as above. Bibasilar interstitial prominence, nonspecific. Reviewed, dictated and finalized at location M. ER MACHINE OPERATOR Impression: Support tubes, as above. Bibasilar interstitial prominence, nonspecific.
--- NOTE | ~2023-09-29 | XR_ITS ---
Portable chest x-ray Comparison: 10/09/2023 Clinical History: Shortness of breath Findings: Lungs are clear, without focal consolidation or pleural effusion. Right-sided PICC line re sena in place. Cardiomediastinal silhouette is stable. Bones and soft tissues are unremarkable. Impression: Clear lungs. Right-sided PICC line. Reviewed, dictated and finalized at location . UCT DIRECTOR Impression: Clear lungs. Right-sided PICC line.
--- NOTE | ~2023-09-29 | XR_ITS ---
EXAMINATION: XR chest 1V portable DATE: 10/04/2023 06:09 INDICATION: Respiratory failure. TECHNIQUE: A single frontal view of the chest was obtained. COMPARISON: Chest single view 10/03/23, chest CT 09/29/2023 FINDINGS: The patient is rotated to her right. There are small pleural effusions. There are airspace opacities at the lung bases. No pneumothorax. Cardiomegaly is noted. The endotracheal tube tip is 4.3 cm above the vidal. A right upper extremity peripherally inserted central venous catheter (PICC) is seen with tip in the superior vena cava. The nasogastric tube tip is in the stomach. IMPRESSION: 1. Stable airspace opacities in the lower lung zones, right worse than left, consistent with atelecta sis versus pneumonia. 2. Small pleural effusions. 3. Cardiomegaly. Reviewed, dictated and finalized at location E. K SEPARATOR IMPRESSION: 1. Stable airspace opacities in the lower lung zones, right worse than left, co nsistent with atelectasis versus pneumonia. 2. Small pleural effusions. 3. Cardiomegaly.
--- NOTE | ~2023-09-29 | XR_ITS ---
EXAMINATION: [id number] DATE: 10/12/2023 18:15 INDICATION: Right knee pain TECHNIQUE: AP and lateral views of the right knee were obtained.. COMPARISON: None. FINDINGS: Tricompartmental osteoarthritis of the right knee, advanced at the medial compartment with 13 degrees secondary varus angulation. Severe osteoarthritis in the lateral compartment and at least mild sosa lofemoral osteoarthritis. No fracture. No evident joint effusion. There are some fatty atrophy of the musculature of the distal right thigh and proximal calf. IMPRESSION: 1. Tricompartmental osteoarthritis at the right knee, advanced in the medial compartment. No joint ef fusion or acute osseous abnormality. Reviewed, dictated and finalized at location A. STERED VASCULAR TECHNOLOGIST (RVT) IMPRESSION: 1. Tricompartmental osteoarthritis at the right knee, advanced in the medial co mpartment. No joint effusion or acute osseous abnormality.
--- NOTE | ~2023-09-29 | XR_ITS ---
EXAMINATION: XR chest 1V portable INDICATION: Respiratory failure TECHNIQUE: Portable AP chest at 0440 hours COMPARISON: 10/08/2023 FINDINGS: The endotracheal and nasogastric tubes have been removed. A right upper extremity PICC ends with its tip in the proximal superior vena cava. The cardiomediastinal silhouette is stable. Airspac e opacities of the right lung base persist but have improved. There has also been interval decrease i n bilateral perihilar opacities. No pleural effusion or pneumothorax. IMPRESSION: 1. Persistent but improved right basilar airspace opacity, consistent with atelectasis versus pneumon ia. 2. Decreased bilateral perihilar opacities, likely improving pulmonary edema. 3. Endotracheal and nasogastric tube removal. Reviewed, dictated and finalized at location F. CIPAL ARCHAEOLOGIST IMPRESSION: 1. Persistent but improved right basilar airspace opacity, consistent with atel ectasis versus pneumonia. 2. Decreased bilateral perihilar opacities, likely improving pulmonary edema. 3. Endotracheal and nasogastric tube removal.
--- NOTE | ~2023-09-29 | XR_ITS ---
EXAMINATION: XR chest PICC line DATE: 10/01/2023 09:37 INDICATION: Central line placement. TECHNIQUE: A single frontal view of the chest was obtained. COMPARISON: Chest single view at 4:59 AM, chest CT 09/29/2023 FINDINGS: The lung volumes are small. The patient is rotated to her right. There are airspace opaciti es at the lung bases and in left perihilar region. No pneumothorax. Cardiomegaly is noted. The endotr acheal tube tip is 2.3 cm above the vidal. The nasogastric tube tip is beyond the inferior margin of the radiograph, but at least to the stomach. A right upper extremity peripherally inserted central v enous catheter (PICC) is seen with tip in the superior vena cava. IMPRESSION: 1. PICC tip in the superior vena cava. 2. Stable airspace opacities at the lung bases and in left perihilar region, consistent with atelecta sis versus pneumonia. 2. Cardiomegaly. Reviewed, dictated and finalized at location A. ENTER MINE IMPRESSION: 1. PICC tip in the superior vena cava. 2. Stable airspace opacities at the lung bases and in left perihilar region, co nsistent with atelectasis versus pneumonia. 2. Cardiomegaly.
--- NOTE | ~2023-09-29 | XR_ITS ---
EXAMINATION: XR chest ET placement Exam Date/Time: 10/04/2023 18:30 AUTO TECHNICIAN HISTORY: ET insertion Comparison: 10/04/2023. RESULT: Lines, tubes, and devices: Interval NG tube removal. Endotracheal tube terminating 3.0 cm above the vidal. Right upper extremity PICC terminating in the SVC. Lungs and pleura: Rightward rotation. Low volumes with crowding. Right costophrenic angle blunting an d basilar airspace disease. Cardiomediastinal silhouette: Stable. Other: No acute osseous or upper abdominal finding. IMPRESSION: Endotracheal tube terminates 3 cm above the vidal. Small right pleural effusion with right basilar atelectasis/consolidation. Reviewed, dictated and finalized at location K. TECHNICIAN
--- NOTE | 2023-09-29 04:50 | ECG_ITS ---
Measurements Intervals [place] Rate: 104 P: 21 ME: 145 QRS: 11 QRSD: 99 T: 38 QT: 379 QTc: 499 Interpretive Statements SINUS TACHYCARDIA BORDERLINE ECG COMPARED TO ECG 07/27/2023 07:58:52 SINUS TACHYCARDIA NOW PRESENT Electronically Signed On 09-29-2023 6:46:43 MID LEVEL DEVELOPER by Dario Dudley D.O.
[2023-09-29 05:01] LABS: pH ABG 7.274 (7.350-7.450)
[2023-09-29 05:02] LABS: Base Excess ABG 8.6 mEq/l (+/-2.0); HCO3 ABG 38.9 mEq/l (22.0-26.0); PCO2 ABG 85.9 mmHg (35.0-45.0); PO2 ABG 58.8 mmHg (80.0-100.0)
[2023-09-29 05:03] LABS: Oxygen Saturation ABG 85.3 % (95.0-100.0); Total Hemoglobin 12.4 g/dL (12.0-18.0)
[2023-09-29 05:04] LABS: Alveolar/Arterial O2 Gradient 274.5 mmHg; Oxygen Content ABG 16.7 %vol (16.0-22.0)
[2023-09-29 05:05] LABS: Basophils Percent Auto 0.7 % (0.2-1.2); Device BIPAP; Fractional Inspired Oxygen 60 %; Hematocrit 47.1 % (37.0-47.0); Hemoglobin 13.3 g/dL (12.0-15.0); Immature Granulocyte Absolute 0.03 K/mm3 (0.00-0.031); Immature Granulocyte Percent A 0.7 % (0-0.5); Lymphocytes Absolute Auto 0.49 K/mm3 (0.9-3.2); Lymphocytes Percent Auto 10.9 % (18.3-44.2); Mean Corpuscular HGB Conc 28.2 g/dl (32-36); Mean Corpuscular Hemoglobin 26.4 pg (26-34); Mean Corpuscular Volume 93.6 fl (80-100); Mean Platelet Volume 10.2 fl (7.4-10.4); Modified Allen's Test Pass; Monocytes Absolute Auto 0.3 K/mm3 (0.1-0.6); Neutrophils Absolute Auto 3.7 K/mm3 (1.3-6.7); Neutrophils Percent Auto 81.7 % (45.5-73.1); Oxyhemoglobin 85.5 % THb (90.0-100.0); PO2 FiO2 Ratio Arterial Blood 0.98 %; Platelet Count Result 143 k/mm3 (150-375); Red Blood Count 5.03 M/mm3 (4.2-5.4); Site Drawn LEFT RADIAL; White Blood Count 4.5 K/mm3 (4.5-10.0)
[2023-09-29 05:06] LABS: Expiratory Pressure 5 cmH2O; Inspiratory Pressure 5 cmH2O
--- NOTE | 2023-09-29 05:17 | PC.NURSE ---
20 Etomidate IVP and 100 mg of Rocuronium administered 0516.
--- NOTE | 2023-09-29 05:17 | PC.NURSE ---
Patient itubated at 0517 by EDP Zych; auscultation bilaterally by PATTI Garcia. 21 cm at the lip with positive colormetric.
[2023-09-29] MEDS: HYDROmorphone HCL INJ (*CRX) 1 MG/ML SYR IV PUSH (05:30)
[2023-09-29] MEDS: LORazepam INJ (*CRX) 2 MG/ML VIAL IV PUSH (05:30)
[2023-09-29 05:34] LABS: Hypochromasia 1+ (NORMAL); Ovalocytes 1+ (NORMAL)
[2023-09-29] MEDS: FENTANYL 2,500MCG/NS250ML(*CRX 2,500 MCG/250 ML BAG 10 MCG IV CONT (05:34)
[2023-09-29 05:35] LABS: Schistocytes None Seen (NORMAL)
[2023-09-29] MEDS: MIDAZOLAM 100MG/NS 100ML(*CRX) 100 MG/100 ML BAG IV CONT (05:38)
[2023-09-29] MEDS: RAPID SEQUENCE INTUBATION KIT 1 EACH (05:38)
[2023-09-29 05:43] LABS: Lactic Acid Reflex 1.8 mmol/L (0.7-2.0)
[2023-09-29 06:08] LABS: Appearance Urine Cloudy (Clear); Bacteria Urine None Seen /hpf; Bilirubin Urine Negative (Negative); Blood Urine Negative (Negative); Color Urine Dark Yellow (Yellow); Glucose Urine UA Negative (Negative); Ketones Urine Negative (Negative); Leukocyte Esterase Ur 2+ LEU/UL (Negative); Nitrate Urine Negative (Negative); Protein Urine 2+ mg/dL (Negative); RBC Urine 0-2 /hpf (0-2); Specific Grav Ur 1.021 (1.001-1.035); Squamous Epithelial Cell Urine Few /hpf (Few); WBC Urine 51-100 /hpf
[2023-09-29 06:12] LABS: Alanine Aminotransferase 13 U/L (6-35); Albumin Level 3.8 g/dL (3.5-5.1); Alkaline Phosphatase 88 U/L (38-126); Anion Gap 5 mmol/L (8-16); Aspartate Amino Transferase 27 U/L (14-36); Bilirubin,Total 1.1 mg/dL (0.2-1.3); Blood Urea Nitrogen 25 mg/dL (7-17); Carbon Dioxide 38 mmol/L (22-30); Chloride 94 mmol/L (98-107); Estimated CRCL calculation 66 ml/min; Estimated Glomerular Filt Rate 49; Glucose 252 mg/dL (65-110); Potassium 4.8 mmol/L (3.4-5.0); Sodium 137 mmol/L (137-145)
[2023-09-29 06:12] LABS: Alveolar/Arterial O2 Gradient 308.6 mmHg; Base Excess ABG 9.5 mEq/l (+/-2.0); Carboxyhemoglobin 1.3 % THb (0-2.0); Fractional Inspired Oxygen 60 %; HCO3 ABG 35.9 mEq/l (22.0-26.0); Methemoglobin ABG 0.2 %THb (0-1.5); Oxygen Content ABG 16.6 %vol (16.0-22.0); Oxygen Saturation ABG 89.6 % (95.0-100.0); Oxyhemoglobin 88.8 % THb (90.0-100.0); PCO2 ABG 56.5 mmHg (35.0-45.0); PO2 ABG 57.1 mmHg (80.0-100.0); PO2 FiO2 Ratio Arterial Blood 0.95 %; Reduced Hemoglobin 9.7 %THb (0-5.0); Total Hemoglobin 13.3 g/dL (12.0-18.0); pH ABG 7.421 (7.350-7.450)
[2023-09-29 06:15] LABS: Device VENTILATOR; Modified Allen's Test Pass; Site Drawn RIGHT RADIAL
[2023-09-29 06:15] LABS: Add Urine Microscopic? YES
[2023-09-29 06:15] LABS: Lipase 71 U/L (23-300); Magnesium 1.7 mg/dL (1.6-2.3); Phosphorus 4.4 mg/dL (2.5-4.5)
[2023-09-29 06:16] LABS: Arterial Blood Gas PEEP 8 cmH2O; Arterial Blood Gas Tidal Volume 400 ml; Arterial Blood Gas Vent Mode CMV; Arterial Blood Gas Ventilator rate 20 /MIN
[2023-09-29 06:28] LABS: Troponin I 0.034 ng/mL (0.000-0.034)
--- NOTE | 2023-09-29 07:02 | ED.GENADULT ---
HPI - General Adult General Chief complaint: Shortness of Breath/Dyspnea Stated complaint: SEVERE RESPIRATORY DISTRESS History of Present Illness HPI narrative: This is a 73-year-old woman with chronic respiratory failure presenting in respiratory distress. EMS was called to the correction where she was found to be on 4 L nasal cannula with saturation of about 65%. She was placed on CPAP which increased her oxygenation to 82%. She was then brought to the hospital for further management. On my exam the patient is lethargic and arousable but unable to answer questions. Patient is full code. Related Data Home Medications Medication Instructions Recorded Confirmed albuterol sulfate 90 mcg/actuation 2 puff inhalation BID 12/30/22 07/28/23 aerosol inhaler allopurinol 100 mg tablet 100 mg PO BID 12/30/22 07/28/23 apixaban 2.5 mg tablet (Eliquis) 2.5 mg PO BID 12/30/22 07/28/23 atorvastatin 80 mg tablet 80 mg PO HS 12/30/22 07/28/23 azelastine 0.05 % eye drops 1 drp ophthalmic (eye) BID 12/30/22 07/28/23 benzonatate 200 mg capsule 200 mg PO Q8H PRN Cough 12/30/22 07/28/23 buspirone 7.5 mg tablet 7.5 mg PO BID 12/30/22 07/28/23 fluticasone propionate 50 1 spray intranasal DAILY 12/30/22 07/28/23 mcg/actuation nasal spray,suspension gabapentin 300 mg capsule 300 mg PO TID 12/30/22 07/28/23 insulin glargine 100 unit/mL 28 unit subcut DAILY 12/30/22 07/28/23 subcutaneous solution insulin glargine 100 unit/mL 42 unit subcut HS 12/30/22 07/28/23 subcutaneous solution ipratropium bromide 0.02 % 3 ml continuous nebulization Q6H 12/30/22 07/28/23 solution for inhalation loratadine 10 mg tablet (Claritin) 10 mg PO DAILY 12/30/22 07/28/23 mirabegron 25 mg tablet,extended 25 mg PO HS 12/30/22 07/28/23 release 24 hr (Myrbetriq) omeprazole 20 mg capsule,delayed 20 mg PO DAILY 12/30/22 07/28/23 release ropinirole 2 mg tablet 4 mg PO HS 12/30/22 07/28/23 sertraline 100 mg tablet 100 mg PO DAILY 12/30/22 07/28/23 hydrocortisone 1 % topical cream 1 applic topical BID 07/28/23 07/28/23 ondansetron 4 mg disintegrating 4 mg PO Q6H PRN Nausea And Vomiting 07/28/23 07/28/23 tablet Allergies Allergy/AdvReac Type Severity Reaction Status Date / Time NSAIDS (Non-Steroidal Allergy Unknown Other Verified 07/27/23 08:11 Anti-Inflamma [facility] Past Medical History Medical History Acute hypercapnic respiratory failure Anemia of chronic disease Candidiasis, intertrigo Cellulitis CHF (congestive heart failure) Chronic kidney disease, stage III (moderate) Chronic midline low back pain Congestive heart failure COPD (chronic obstructive pulmonary disease) Degenerative joint disease Depression with anxiety With history of panic attacks Diabetic polyneuropathy Diverticulosis Encephalopathy acute Essential (primary) hypertension Hepatosplenomegaly Hiatal hernia Small hiatal hernia noted on barium swallow performed due to dysphagia and sensation of globus. Of the mid distal esophagus, repeated mid distal esophageal reflux Hyperlipidemia Insulin dependent type 2 diabetes mellitus Iron deficiency anemia Irritable bowel syndrome Lung nodule Lymphedema of both lower extremities CIRILO (obstructive sleep apnea) Osteoarthritis Overactive bladder With chronic urinary incontinence Beal catheter placed in the ER Panic disorder [episodic paroxysmal anxiety] Polyarthritis of multiple sites Postmenopausal Recurrent UTI Renal failure (ARF), acute on chronic Renal lesion Restless leg syndrome Severe sepsis Spondylosis Thyroid nodule Transaminitis Type 2 diabetes mellitus treated with insulin Surgical History Surgical History History of colonoscopy with polypectomy Family History Family History Sibling , Sister Cancer Psychiatric illness Father
[2023-09-29] MEDS: cefTRIAXone 2 GM/NS 100 ML 2 GM/100 ML BAG IVPB (08:19)
[2023-09-29 08:46] LABS: NT Pro B Type Natriuretic Pept 1940 pg/mL (19.9-100)
[2023-09-29 09:11] LABS: Influenza A QL RT-PCR Negative (Negative); Influenza B QL RT-PCR Negative (Negative); RSV RNA, RT-PCR Positive (Negative); SARS-CoV-2 RNA PCR Negative (Negative)
[2023-09-29 09:19] LABS: INR 1.2; Prothrombin Time 15.3 Seconds (11.1-14.7)
[2023-09-29] MEDS: AZITHROMYCIN 500 MG/NS 250 ML 500 MG/250 ML BAG 250 MG IVPB (09:23)
[2023-09-29 09:28] LABS: Troponin I 0.046 ng/mL (0.000-0.034)
[2023-09-29] MEDS: VANCOMYCIN 1,250 MG/NS 250 ML 1,250 MG/250 ML BAG 166.67 MG IVPB ×2 (09:30→10:30)
[2023-09-29 10:20] LABS: Ammonia < 9 umol/L (9-30)
[2023-09-29] MEDS: DOXYCYCLINE 100 MG/NS 100 ML 100 MG/100 ML BAG IVPB ×2 (10:36→20:11)
[2023-09-29 10:45] LABS: Glucose Point of Care 232 mg/dl (65-105)
[2023-09-29 10:49] LABS: Thyroid Stimulating Hormone Reflex 0.555 uIU/mL (0.465-4.68)
--- NOTE | 2023-09-29 10:50 | WPDCNINT ---
Assessment and Plan Assessment and plan (1) Acute on chronic respiratory failure with hypoxia and hypercapnia: Code(s): J96.21 - Acute and chronic respiratory failure with hypoxia; J96.22 - Acute and chronic respiratory failure with hypercapnia Status: Acute Assessment and Plan: Patient has multifactorial chronic respiratory failure and is on oxygen at home. Her respiratory failure secondary to diastolic dysfunction, pulmonary hypertension obesity hypoventilation, COPD, congestive heart failure CT chest suggest atelectasis with some areas of infiltrate and large hiatal hernia ABG improved after intubation and mechanical ventilation Vent settings reviewed Repeat chest x-ray to a certain position of ET tube Continue vancomycin, Rocephin and doxycycline Bronchodilators Hold steroids as patient does not appear to have any significant wheezing Gentle diuresis Blood cultures (2) Obesity hypoventilation syndrome: Code(s): E66.2 - Morbid (severe) obesity with alveolar hypoventilation Status: Acute Assessment and Plan: See above (3) Chronic obstructive pulmonary disease: Code(s): J44.9 - Chronic obstructive pulmonary disease, unspecified Status: Acute Assessment and Plan: See above (4) Congestive heart failure: Code(s): I50.9 - Heart failure, unspecified Status: Acute Assessment and Plan: Most recent echocardiogram Summary ? 1. Left ventricular chamber dimension is normal. ? 2. Left ventricular systolic function is normal, estimated at 60-65%. ? 3. The left ventricular diastolic function is grade I diastolic dysfunction. ? 4. Right ventricular chamber dimension is mildly enlarged. ? 5. Right ventricular systolic function is normal. ? 6. Left atrial chamber dimension is moderately enlarged. ? 7. Right atrial chamber dimension is mildly enlarged. ? 8. There is moderate tricuspid valve regurgitation. ? 9. Estimated pulmonary arterial systolic pressure is 63 mmHg. (5) Acute UTI: Code(s): N39.0 - Urinary tract infection, site not specified Status: Acute Assessment and Plan: UA suggestive of UTI Urine and blood cultures ordered Lactic acid level normal Continue IV Rocephin (6) Insulin dependent type 2 diabetes mellitus: Code(s): E11.9 - Type 2 diabetes mellitus without complications; Z79.4 - retirement (current) use of insulin Status: Acute Assessment and Plan: Resume Lantus and sliding scale insulin ordered Start tube feeds (7) Chronic kidney disease: Code(s): N18.9 - Chronic kidney disease, unspecified Status: Acute Assessment and Plan: Patient has chronic kidney disease and acute creatinine appears to be at baseline Monitor urine output electrolytes and creatinine Hold fluids at this time since patient is overall volume overloaded (8) Encephalopathy: Code(s): G93.40 - Encephalopathy, unspecified Status: Acute Assessment and Plan: Likely toxic metabolic encephalopathy. Patient did receive sedation Head CT pending Check ammonia and TSH (9) Candidiasis, intertrigo: Code(s): B37.2 - Candidiasis of skin and nail Status: Acute Assessment and Plan: Topical anti fungal powder ordered Plan DVT prophylaxis -continue Eliquis Stress ulcer prophylaxis -Protonix Nutrition -start Tube Feeds Code Status - Full Code Total Critical Care Time - 40 minutes Due to a high probability of clinically significant, life threatening deterioration, the patient required my highest level of preparedness to intervene emergently and I personally spent this critical care time directly and personally managing the patient. This critical care time included obtaining a history; examining the patient; pulse oximetry; ordering and review of studies; arranging urgent treatment with development of a management plan; evaluation of patient's response to treatment; frequent reassessment; and discussio
[2023-09-29 11:55] LABS: Glucose Point of Care 270 mg/dl (65-105)
[2023-09-29 12:33] LABS: MRSA (PCR) NOT DETECTED (NOT DETECTE)
[2023-09-29] MEDS: ALBUTEROL SULFATE NEB 2.5 MG/3 ML INH INHALATION ×2 (13:07→20:08)
[2023-09-29] MEDS: IPRATROPIUM BR 0.02% INH SOLN 0.5 MG/2.5 ML VIAL INHALATION ×2 (13:07→20:08)
[2023-09-29] MEDS: FUROSEMIDE INJ 40 MG/4 ML VIAL IV PUSH (13:28)
[2023-09-29] MEDS: INSULIN ASPART (*BKC) 100 UNITS/ML SUB-Q ×4 (13:28→23:57)
--- NOTE | 2023-09-29 13:34 | PM.IMHP ---
H&P: HPI History of Present Illness Date/Time: 09/29/23 13:35 Chief Complaint: Shortness of breath. Narrative: This is a 73-year-old female congestive heart failure, hypertension, dyslipidemia, chronic obstructive pulmonary disease, chronic respiratory failure on 2 L nasal cannula, rheumatoid arthritis, insulin-dependent type 2 diabetes mellitus, morbid obesity, and other comorbidities who presented to the emergency department via EMS from a local rehab facility for evaluation of shortness of breath. She is currently intubated on mechanical ventilation unable to provide any history. As such all of the following is obtained from her EMR. She presented to the ED today with complaints of shortness of breath and on EMS arrival she was reportedly found to have an SpO2 of 65% on 4 L nasal cannula. She was placed on CPAP and was administered albuterol an line and Solu-Medrol. On arrival to the ED she was in respiratory extremis and was lethargic and minimally arousable, unable to answer questions. She was intubated shortly thereafter. Preliminary evaluation showed that she was positive for RSV and chest CT showed ground-glass opacities which could be infiltrate or atelectasis. She was started on antibiotics and nebulizer treatments and has been admitted to the ICU in this setting. At the time my evaluation she is sedated and minimally responsive to noxious stimuli. Review of Systems Review of Systems: Unable to obtain given clinical condition as above. [facility] Past Medical History Medical History (Updated 09/29/23 @ 20:42 by Sandy Burgos PA-C) Anemia of chronic disease Chronic kidney disease, stage III (moderate) Chronic midline low back pain Chronic obstructive pulmonary disease Chronic respiratory failure with hypoxia, on home oxygen therapy Congestive heart failure Most recent echocardiogram showed normal LV systolic function and size with an EF of 60 to 65%, grade 1 diastolic dysfunction, biatrial enlargement, and an estimated PA SP of 63 mmHg. Degenerative joint disease Depression with anxiety With history of panic attacks Diabetic polyneuropathy Diverticulosis Essential (primary) hypertension Hiatal hernia Small hiatal hernia noted on barium swallow performed due to dysphagia and sensation of globus. Of the mid distal esophagus, repeated mid distal esophageal reflux Hyperlipidemia Insulin dependent type 2 diabetes mellitus Iron deficiency anemia Irritable bowel syndrome Lung nodule Lymphedema of both lower extremities Morbid obesity Obesity hypoventilation syndrome Obstructive sleep apnea Osteoarthritis Overactive bladder With chronic urinary incontinence Beal catheter placed in the ER Polyarthritis of multiple sites Postmenopausal Recurrent UTI Renal lesion Restless leg syndrome Spondylosis Thyroid nodule Surgical History Surgical History History of colonoscopy with polypectomy Family History Family History Sibling , Sister Cancer Psychiatric illness Father Cancer Mother Cancer Son Cancer Social History Social History (Updated 09/29/23 @ 13:38 by Sandy Burgos PA-C) Social History: Surrogate medical decision maker: Code status: Full code. Smoking status: Never smoker Second hand tobacco smoke exposure: No Additional smoking assessment comments: information provided by patients son. Alcohol intake: never Alcohol use details: social Substance use: never Substance use type: marijuana Last use: 07/18/22 Lack of Transportation: No Lack of Food: Never True Current Housing: I Have Housing Concerned About Future Housing: No Difficulty Paying Gas/Electric Bills: No Difficulty Paying for Meds: No Currently Unemployed: No Education: Decline to Answer Difficulty w/ Childcare or Family Care: No Living arrangements:
[2023-09-29 16:09] LABS: Glucose Point of Care 272 mg/dl (65-105)
--- NOTE | 2023-09-29 16:09 | ADMIMU ---
This patient, Delilah Ludwig, was admitted to IMU status, and placed in Intensive Care Unit-1. Patient/family oriented to hospital policies and general routines including ID bracelet, bed and alarms, visiting hours, pain management, procedures, bathroom and other care routines, personal items, smoking policy, room service/diet, and visiting hours. Valuables list has been completed. Information on how to activate the Rapid Response Team has been discussed. Patient/Family are encouraged to report perceived risks to care and to ask questions if they do not understand what they are told or what they should do. Patient is intubated and sedated upon arrival to the ICU. Opens eyes, however unable to follow commands or instructions at this time. Discussed plan of care with son over the phone. He verbalizes understanding.
[2023-09-29] MEDS: ATORVASTATIN 40 MG TABLET 80 MG PO (20:10)
[2023-09-29] MEDS: APIXABAN 2.5 MG TABLET PO (20:10)
[2023-09-29] MEDS: TOLNAFTATE 1% POWDER 45 GM BTL 1 APPLIC TOPICAL (20:11)
[2023-09-29] MEDS: INSULIN GLARGINE (*BKC) 100 UNITS/ML 40 UNITS SUB-Q (20:11)
[2023-09-29 20:30] LABS: Glucose Point of Care 261 mg/dl (65-105)
[2023-09-29 23:55] LABS: Glucose Point of Care 245 mg/dl (65-105)
[2023-09-30] VITALS (32 sets, daily range): BP systolic 101–127; BP diastolic 50–110; PULSE 73–113; RESP 18–81; TEMP 36.8–36.9; O2SAT 90–98
[2023-09-30] MEDS: VANCOMYCIN 1,500 MG/NS 500 ML 1,500 MG/500 ML BAG 250 MG IVPB ×2 (02:07→20:44)
[2023-09-30] MEDS: ALBUTEROL SULFATE NEB 2.5 MG/3 ML INH INHALATION ×4 (02:24→20:14)
[2023-09-30] MEDS: IPRATROPIUM BR 0.02% INH SOLN 0.5 MG/2.5 ML VIAL INHALATION ×4 (02:24→20:14)
[2023-09-30] MEDS: FENTANYL 2,500MCG/NS250ML(*CRX 2,500 MCG/250 ML BAG 12.5 MCG IV CONT (03:46)
[2023-09-30 04:20] LABS: Hematocrit 43.3 % (37.0-47.0); Hemoglobin 12.6 g/dL (12.0-15.0); Mean Corpuscular HGB Conc 29.1 g/dl (32-36); Mean Corpuscular Hemoglobin 26.5 pg (26-34); Mean Platelet Volume 10.7 fl (7.4-10.4); Platelet Count Result 164 k/mm3 (150-375); Red Blood Count 4.76 M/mm3 (4.2-5.4); Red Cell Distribution Width 20.6 % (11.5-14.5); White Blood Count 4.7 K/mm3 (4.5-10.0)
[2023-09-30 04:34] LABS: Alanine Aminotransferase 14 U/L (6-35); Albumin Level 3.2 g/dL (3.5-5.1); Alkaline Phosphatase 69 U/L (38-126); Anion Gap 5 mmol/L (8-16); Aspartate Amino Transferase 25 U/L (14-36); Bilirubin,Total 0.6 mg/dL (0.2-1.3); Blood Urea Nitrogen 33 mg/dL (7-17); Calcium 9.1 mg/dL (8.4-10.2); Carbon Dioxide 36 mmol/L (22-30); Chloride 98 mmol/L (98-107); Estimated CRCL calculation 66 ml/min; Estimated Glomerular Filt Rate 49; Glucose 248 mg/dL (65-110); Magnesium 1.7 mg/dL (1.6-2.3); Potassium 3.9 mmol/L (3.4-5.0); Sodium 139 mmol/L (137-145)
[2023-09-30] MEDS: INSULIN ASPART (*BKC) 100 UNITS/ML SUB-Q ×2 (04:42→08:31)
[2023-09-30 05:29] LABS: Alveolar/Arterial O2 Gradient 119.2 mmHg; Base Excess ABG 7.5 mEq/l (+/-2.0); Carboxyhemoglobin 0.4 % THb (0-2.0); Fractional Inspired Oxygen 35 %; HCO3 ABG 34.4 mEq/l (22.0-26.0); Methemoglobin ABG 0.3 %THb (0-1.5); Oxygen Content ABG 16.9 %vol (16.0-22.0); Oxyhemoglobin 89.6 % THb (90.0-100.0); PCO2 ABG 58.6 mmHg (35.0-45.0); PO2 ABG 62.2 mmHg (80.0-100.0); PO2 FiO2 Ratio Arterial Blood 1.78 %; Reduced Hemoglobin 9.7 %THb (0-5.0); Total Hemoglobin 13.4 g/dL (12.0-18.0); pH ABG 7.387 (7.350-7.450)
[2023-09-30 05:31] LABS: Device VENTILATOR; Modified Allen's Test Pass; Site Drawn LEFT RADIAL
[2023-09-30 05:32] LABS: Arterial Blood Gas PEEP 10 cmH2O; Arterial Blood Gas Tidal Volume 400 ml; Arterial Blood Gas Vent Mode CMV; Arterial Blood Gas Ventilator rate 20 /MIN
[2023-09-30 07:35] LABS: Glucose Point of Care 231 mg/dl (65-105)
--- NOTE | 2023-09-30 08:27 | WPDINTPN ---
Progress Note: A&P Assessment and Plan (1) Acute on chronic respiratory failure with hypoxia and hypercapnia: Code(s): J96.21 - Acute and chronic respiratory failure with hypoxia; J96.22 - Acute and chronic respiratory failure with hypercapnia Status: Acute Assessment and Plan: Patient has multifactorial chronic respiratory failure and is on oxygen at home. Her respiratory failure secondary to diastolic dysfunction, pulmonary hypertension obesity hypoventilation, COPD, congestive heart failure CT chest suggest atelectasis with some areas of infiltrate and large hiatal hernia ABG improved after intubation and mechanical ventilation Vent settings reviewed continue FiO2 of 40% peep of 8 Chest x-ray reviewed 09/30 I placed patient on PSV trial this morning but patient quickly failed due to increased respiratory rate heart rate drop in saturation Continue Rocephin and doxycycline. Discontinue vancomycin Bronchodilators Hold steroids as patient does not appear to have any significant wheezing Continue diuretics Blood cultures 1 of 2 is growing Gram-positive cocci which could be contaminant. Wait for identification (2) Obesity hypoventilation syndrome: Code(s): E66.2 - Morbid (severe) obesity with alveolar hypoventilation Status: Acute Assessment and Plan: See above (3) Chronic obstructive pulmonary disease: Code(s): J44.9 - Chronic obstructive pulmonary disease, unspecified Status: Acute Assessment and Plan: See above (4) Congestive heart failure: Code(s): I50.9 - Heart failure, unspecified Status: Acute Assessment and Plan: Most recent echocardiogram Summary ? 1. Left ventricular chamber dimension is normal. ? 2. Left ventricular systolic function is normal, estimated at 60-65%. ? 3. The left ventricular diastolic function is grade I diastolic dysfunction. ? 4. Right ventricular chamber dimension is mildly enlarged. ? 5. Right ventricular systolic function is normal. ? 6. Left atrial chamber dimension is moderately enlarged. ? 7. Right atrial chamber dimension is mildly enlarged. ? 8. There is moderate tricuspid valve regurgitation. ? 9. Estimated pulmonary arterial systolic pressure is 63 mmHg. (5) Acute UTI: Code(s): N39.0 - Urinary tract infection, site not specified Status: Acute Assessment and Plan: UA suggestive of UTI Urine and blood cultures ordered Lactic acid level normal Continue IV Rocephin (6) Insulin dependent type 2 diabetes mellitus: Code(s): E11.9 - Type 2 diabetes mellitus without complications; Z79.4 - seed expert (current) use of insulin Status: Acute Assessment and Plan: Increase lantus and continue sliding scale insulin ordered Continue tube feeds (7) Chronic kidney disease: Code(s): N18.9 - Chronic kidney disease, unspecified Status: Acute Assessment and Plan: Patient has chronic kidney disease and acute creatinine appears to be at baseline Monitor urine output electrolytes and creatinine Hold fluids at this time since patient is overall volume overloaded and continue diuretics (8) Encephalopathy: Code(s): G93.40 - Encephalopathy, unspecified Status: Acute Assessment and Plan: Likely toxic metabolic encephalopathy. Patient did receive sedation Head CT unchanged Normal ammonia and TSH (9) Candidiasis, intertrigo: Code(s): B37.2 - Candidiasis of skin and nail Status: Acute Assessment and Plan: Topical anti fungal powder ordered Plan DVT prophylaxis -continue Eliquis Stress ulcer prophylaxis -Protonix Nutrition -continue Tube Feeds Code Status - Full Code Total Critical Care Time - 30 minutes Due to a high probability of clinically significant, life threatening deterioration, the patient required my highest level of preparedness to intervene emergently and I personally spent this critical care time directly and personally managing the
[2023-09-30] MEDS: APIXABAN 2.5 MG TABLET PO ×2 (08:30→20:36)
[2023-09-30] MEDS: FUROSEMIDE INJ 40 MG/4 ML VIAL IV PUSH (08:30)
[2023-09-30] MEDS: cefTRIAXone 2 GM/NS 100 ML 2 GM/100 ML BAG IVPB (08:30)
[2023-09-30] MEDS: TOLNAFTATE 1% POWDER 45 GM BTL 1 APPLIC TOPICAL ×2 (08:31→20:36)
[2023-09-30] MEDS: PANTOPRAZOLE SODIUM IV 40 MG VIAL IV PUSH (08:31)
[2023-09-30] MEDS: DOXYCYCLINE 100 MG/NS 100 ML 100 MG/100 ML BAG IVPB (09:12)
[2023-09-30] MEDS: INSULIN GLARGINE (*BKC) 100 UNITS/ML 20 UNITS SUB-Q (09:14)
--- NOTE | 2023-09-30 11:58 | PCFNICU ---
ICU Rounding Note: Pt current nutrition is Vital AF at 40 ml/hr. Nutrition recommendation: goal rate at Vital AF at 55 ml/hr. Last recorded weight is 159 kg, down from 173 kg on admit. Bowel Motility: +Bm reported 09/29 Labs Reviewed:Glu 248, Cr 1.10, GFR 49, BUN 33, Alb 3.2 Meds Noted:Lantus, NovoLog, Lipitor, Vancomycin, Lasix Skin: WNL Additional Notes: Patient remains on mechanical vent and tube feedings of Vital AF 1.2 at 40 ml/hr and tolerating per nursing. Tube feedings at goal rate providing 1452 kcals/91 gms protein/ 981 ml water. Flush 30 ml q 4 hours. Following daily in ICU rounds. Will monitor weight, labs, skin, tube feeding tolerance, meds every Wednesday and Wednesday.
--- NOTE | 2023-09-30 12:15 | P.CDI_ITS ---
CDI Query Clarification Request RSV has been identified with a positive swab, if able, please identify the underlying infectious process if known: * Pneumonia * Bronchitis * Upper respiratory infection * Lower respiratory infection * Other/Unknown <Lamar Santos RN - Last Filed: 09/30/23 12:17> Clarified Diagnosis Clarified Diagnosis: Lower respiratory infection <José Miguel Molina MD - Last Filed: 10/01/23 09:24>
--- NOTE | 2023-09-30 12:15 | WPDCDIQUERY2 ---
CDI Query Clarification Request RSV has been identified with a positive swab, if able, please identify the underlying infectious process if known: Pneumonia Bronchitis Upper respiratory infection Lower respiratory infection Other/Unknown <Lamar Santos RN - Last Filed: 09/30/23 12:17> Clarified Diagnosis Clarified Diagnosis: Lower respiratory infection <José Miguel Molina MD - Last Filed: 10/01/23 09:24>
--- NOTE | 2023-09-30 12:19 | P.CDI_ITS ---
CDI Query Clarification Request Documented history of CHF. CHF noted in the assessment and plan. Elevated BNP on 09/29/23 lab work. 09/29/23 chest xray notes pulmonary edema. LE edema noted in the documentation. Lasix listed as a home medication. Patient receiving Lasix. Most recent Echo, noted in the documentation, notes grade 1 diastolic dysfunction, EF 60-35%. Please specify type and acuity of heart failure if known. * Acute * Chronic * Acute on Chronic * Unknown * Systolic * Diastolic * Combined Systolic and Diastolic * Unknown <Lamar Santos RN - Last Filed: 09/30/23 12:29> Clarified Diagnosis Clarified Diagnosis: Acute on chronic diastolic congestive heart failure <José Miguel Molina MD - Last Filed: 10/01/23 09:24>
[2023-09-30 13:06] LABS: Glucose Point of Care 171 mg/dl (65-105)
[2023-09-30] MEDS: MIDAZOLAM 100MG/NS 100ML(*CRX) 100 MG/100 ML BAG IV CONT (14:35)
[2023-09-30 17:09] LABS: Glucose Point of Care 198 mg/dl (65-105)
[2023-09-30 20:27] LABS: Vancomycin Trough 18.4 ug/mL (10.0-20.0)
[2023-09-30] MEDS: FENTANYL 2,500MCG/NS250ML(*CRX 2,500 MCG/250 ML BAG 17.5 MCG IV CONT (20:35)
[2023-09-30] MEDS: ATORVASTATIN 40 MG TABLET 80 MG PO (20:36)
[2023-09-30] MEDS: DOXYCYCLINE HYCLATE 100 MG TABLET FEED TUBE (20:36)
[2023-09-30] MEDS: INSULIN GLARGINE (*BKC) 100 UNITS/ML 40 UNITS SUB-Q (20:38)
[2023-09-30 20:52] LABS: Glucose Point of Care 177 mg/dl (65-105)
[2023-09-30 23:56] LABS: Glucose Point of Care 186 mg/dl (65-105)
[2023-10-01] VITALS (31 sets, daily range): BP systolic 85–142; BP diastolic 47–80; PULSE 71–96; RESP 16–22; TEMP 36.5–37; O2SAT 93–100
[2023-10-01] MEDS: ALBUTEROL SULFATE NEB 2.5 MG/3 ML INH INHALATION ×4 (02:29→20:02)
[2023-10-01] MEDS: IPRATROPIUM BR 0.02% INH SOLN 0.5 MG/2.5 ML VIAL INHALATION ×4 (02:29→20:02)
[2023-10-01 03:43] LABS: Hematocrit 39.9 % (37.0-47.0); Hemoglobin 11.5 g/dL (12.0-15.0); Mean Corpuscular HGB Conc 28.8 g/dl (32-36); Mean Corpuscular Hemoglobin 26.7 pg (26-34); Mean Corpuscular Volume 92.6 fl (80-100); Mean Platelet Volume 10.5 fl (7.4-10.4); Platelet Count Result 151 k/mm3 (150-375); Red Blood Count 4.31 M/mm3 (4.2-5.4); Red Cell Distribution Width 21.1 % (11.5-14.5); White Blood Count 5.3 K/mm3 (4.5-10.0)
[2023-10-01 04:00] LABS: Alanine Aminotransferase 10 U/L (6-35); Albumin Level 2.7 g/dL (3.5-5.1); Alkaline Phosphatase 61 U/L (38-126); Anion Gap 3 mmol/L (8-16); Aspartate Amino Transferase 28 U/L (14-36); Bilirubin,Total 0.4 mg/dL (0.2-1.3); Blood Urea Nitrogen 43 mg/dL (7-17); Calcium 8.5 mg/dL (8.4-10.2); Carbon Dioxide 38 mmol/L (22-30); Chloride 97 mmol/L (98-107); Estimated CRCL calculation 58 ml/min; Estimated Glomerular Filt Rate 44; Glucose 180 mg/dL (65-110); Magnesium 1.7 mg/dL (1.6-2.3); Potassium 3.5 mmol/L (3.4-5.0); Sodium 138 mmol/L (137-145)
[2023-10-01 05:21] LABS: Alveolar/Arterial O2 Gradient 131.3 mmHg; Base Excess ABG 5.4 mEq/l (+/-2.0); Carboxyhemoglobin 0.3 % THb (0-2.0); Fractional Inspired Oxygen 40 %; HCO3 ABG 33.8 mEq/l (22.0-26.0); Methemoglobin ABG 0.3 %THb (0-1.5); Oxygen Saturation ABG 93.5 % (95.0-100.0); Oxyhemoglobin 91.9 % THb (90.0-100.0); PO2 ABG 75.6 mmHg (80.0-100.0); PO2 FiO2 Ratio Arterial Blood 1.89 %; Reduced Hemoglobin 7.5 %THb (0-5.0); Total Hemoglobin 13.1 g/dL (12.0-18.0); pH ABG 7.313 (7.350-7.450)
[2023-10-01 05:24] LABS: PCO2 ABG 68.1 mmHg (35.0-45.0); Site Drawn RIGHT RADIAL
[2023-10-01 05:25] LABS: Arterial Blood Gas PEEP 10 cmH2O; Arterial Blood Gas Vent Mode CMV; Arterial Blood Gas Ventilator rate 20 /MIN; Device VENTILATOR; Modified Allen's Test Pass
[2023-10-01 05:26] LABS: Arterial Blood Gas Tidal Volume 400 ml
[2023-10-01 08:40] LABS: Glucose Point of Care 219 mg/dl (65-105)
[2023-10-01] MEDS: LIDOCAINE HCL 1% PF INJ 5 ML VIAL INFILTRATE (09:00)
--- NOTE | 2023-10-01 09:09 | PM.IMPN ---
Progress Note: A&P Assessment and Plan (1) Acute on chronic respiratory failure with hypoxia and hypercapnia: Code(s): J96.21 - Acute and chronic respiratory failure with hypoxia; J96.22 - Acute and chronic respiratory failure with hypercapnia Status: Acute Assessment and Plan: Patient has multifactorial chronic respiratory failure and is on oxygen at home. Her respiratory failure secondary to diastolic dysfunction, pulmonary hypertension obesity hypoventilation, COPD, congestive heart failure CT chest suggest atelectasis with some areas of infiltrate and large hiatal hernia ABG improved after intubation and mechanical ventilation Vent settings reviewed continue FiO2 of 40% peep of 8 Chest x-ray reviewed 09/30 I placed patient on PSV trial this morning but patient quickly failed due to increased respiratory rate heart rate drop in saturation Continue Rocephin and doxycycline. Discontinue vancomycin Bronchodilators Hold steroids as patient does not appear to have any significant wheezing Continue diuretics Blood cultures 1 of 2 is growing Gram-positive cocci which could be contaminant. Wait for identification (2) Obesity hypoventilation syndrome: Code(s): E66.2 - Morbid (severe) obesity with alveolar hypoventilation Status: Acute Assessment and Plan: See above (3) Chronic obstructive pulmonary disease: Code(s): J44.9 - Chronic obstructive pulmonary disease, unspecified Status: Acute Assessment and Plan: See above (4) Congestive heart failure: Code(s): I50.9 - Heart failure, unspecified Status: Acute Assessment and Plan: Most recent echocardiogram Summary ? 1. Left ventricular chamber dimension is normal. ? 2. Left ventricular systolic function is normal, estimated at 60-65%. ? 3. The left ventricular diastolic function is grade I diastolic dysfunction. ? 4. Right ventricular chamber dimension is mildly enlarged. ? 5. Right ventricular systolic function is normal. ? 6. Left atrial chamber dimension is moderately enlarged. ? 7. Right atrial chamber dimension is mildly enlarged. ? 8. There is moderate tricuspid valve regurgitation. ? 9. Estimated pulmonary arterial systolic pressure is 63 mmHg. 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 Patient did receive sedation Head CT unchanged Normal ammonia and TSH (9) Candidiasis, intertrigo: Code(s): B37.2 - Candidiasis of skin and nail Status: Acute Assessment and Plan: Topical anti fungal powder ordered Plan Bacteremia 1 of the 2 bottles grow Staphylococcus hominis 09/29/23 Possible contamination Repeat blood culture DVT prophylaxis -continue Eliquis Stress ulcer prophylaxis -Protonix Nutrition -continue Tube Feeds Code Status - Full Code Subjective Date/time seen: 10/01/23 09:09 Interval history: I saw and examined the patient i
--- NOTE | 2023-10-01 09:18 | WPDINTPN ---
Progress Note: A&P Assessment and Plan (1) Acute on chronic respiratory failure with hypoxia and hypercapnia: Code(s): J96.21 - Acute and chronic respiratory failure with hypoxia; J96.22 - Acute and chronic respiratory failure with hypercapnia Status: Acute Assessment and Plan: Patient has multifactorial chronic respiratory failure and is on oxygen at home. Her respiratory failure secondary to diastolic dysfunction, pulmonary hypertension obesity hypoventilation, COPD, congestive heart failure, RSV infection CT chest suggest atelectasis with some areas of infiltrate and large hiatal hernia ABG improved after intubation and mechanical ventilation Vent settings reviewed continue FiO2 of 40%. Decrease peep to 8 Chest x-ray reviewed 09/30 I placed patient on PSV trial this morning but patient quickly failed due to increased respiratory rate heart rate drop in saturation Continue Rocephin and doxycycline. Discontinued vancomycin Bronchodilators Hold steroids as patient does not appear to have any significant wheezing Continue diuretics Isolation and supportive treatment for RSV infection Blood cultures 1 of 2 is growing Gram-positive cocci which could be contaminant. Wait for identification Will perform sedation holiday and assess for weaning trial again today (2) Obesity hypoventilation syndrome: Code(s): E66.2 - Morbid (severe) obesity with alveolar hypoventilation Status: Acute Assessment and Plan: See above (3) Chronic obstructive pulmonary disease: Code(s): J44.9 - Chronic obstructive pulmonary disease, unspecified Status: Acute Assessment and Plan: See above (4) Congestive heart failure: Code(s): I50.9 - Heart failure, unspecified Status: Acute Assessment and Plan: Most recent echocardiogram Summary ? 1. Left ventricular chamber dimension is normal. ? 2. Left ventricular systolic function is normal, estimated at 60-65%. ? 3. The left ventricular diastolic function is grade I diastolic dysfunction. ? 4. Right ventricular chamber dimension is mildly enlarged. ? 5. Right ventricular systolic function is normal. ? 6. Left atrial chamber dimension is moderately enlarged. ? 7. Right atrial chamber dimension is mildly enlarged. ? 8. There is moderate tricuspid valve regurgitation. ? 9. Estimated pulmonary arterial systolic pressure is 63 mmHg. 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 of insulin Status: Acute Assessment and Plan: Continue lantus and continue sliding scale insulin ordered Continue tube feeds (7) Chronic kidney disease: Code(s): N18.9 - Chronic kidney disease, unspecified Status: Acute Assessment and Plan: Patient has chronic kidney disease and acute creatinine appears to be at baseline Monitor urine output electrolytes and creatinine Hold fluids at this time since patient is overall volume overloaded and continue diuretics (8) Encephalopathy: Code(s): G93.40 - Encephalopathy, unspecified Status: Acute Assessment and Plan: Likely toxic metabolic encephalopathy. Patient did receive sedation Head CT unchanged Normal ammonia and TSH (9) Candidiasis, intertrigo: Code(s): B37.2 - Candidiasis of skin and nail Status: Acute Assessment and Plan: Topical anti fungal powder ordered (10) Respiratory syncytial virus: Code(s): B33.8 - Other specified viral diseases Status: Acute Assessment and Plan: See above Plan DVT prophylaxis -continue Eliquis Stress ulcer prophylaxis -Protonix Nutrition -continue Tube Feeds Code Status
[2023-10-01] MEDS: FENTANYL 2,500MCG/NS250ML(*CRX 2,500 MCG/250 ML BAG 17.5 MCG IV CONT (09:33)
[2023-10-01] MEDS: PANTOPRAZOLE SODIUM IV 40 MG VIAL IV PUSH (10:13)
[2023-10-01] MEDS: INSULIN ASPART (*BKC) 100 UNITS/ML SUB-Q (10:13)
[2023-10-01] MEDS: ALBUMIN HUMAN 25% 25 GM/100 ML 100 ML IVPB (10:14)
[2023-10-01] MEDS: FUROSEMIDE INJ 40 MG/4 ML VIAL IV PUSH (10:14)
[2023-10-01] MEDS: cefTRIAXone 2 GM/NS 100 ML 2 GM/100 ML BAG IVPB (10:14)
[2023-10-01] MEDS: DOXYCYCLINE HYCLATE 100 MG TABLET FEED TUBE ×2 (10:14→20:35)
[2023-10-01] MEDS: APIXABAN 2.5 MG TABLET PO ×2 (10:14→20:35)
[2023-10-01] MEDS: INSULIN GLARGINE (*BKC) 100 UNITS/ML 20 UNITS SUB-Q (10:15)
[2023-10-01] MEDS: TOLNAFTATE 1% POWDER 45 GM BTL 1 APPLIC TOPICAL ×2 (10:24→20:42)
--- NOTE | 2023-10-01 10:43 | PCFNICU ---
Addendum entered by Mayi Mercado RD, LDN 10/01/23 10:47: ICU Rounding Note: Pt current nutrition is Vital AF 1.2 @ goal rate 55 ml/h with 30 ml water flushes q 4 hours. Meeting EER @ 100% (25 kcal.kg IBW) and estimated protein needs 100% @ 1-1.2 g/kg Adj BW. Nutrition recommendation: Continue with current tube feeding orders and flushes as ordered. Agree with orders Last recorded weight is 158.8 kg. Bowel Motility: +1 BM 09/29/23 Labs Reviewed: Hgb 11.5, Alb 2.7, GFR 44, BUN 43, Cre 1.2, Glu 219 Meds Noted: Sedation with fentanyl, versed. Lasix, novolog, protonix, lantus, vancomycin Skin: No pressure related skin breakdown Additional Notes: Tolerating tube feedings well. Vital 1.2 @ 55 ml/h: 1452 kcal, 91 g protein, 981 ml free water. Agree with current orders Following daily in ICU rounds. Will monitor weight, labs, skin, tube feeding tolerance, meds every Wednesday and Wednesday. . Original Note: ICU Rounding Note: Pt current nutrition is Vital AF 1.2 @ goal rate 55 ml/h with 30 ml water flushes q 4 hours. Meeting EER @ 100% (25 kcal.kg IBW) and estimated protein needs 100% @ 1-1.2 g/kg Adj BW. Nutrition recommendation: Continue with current tube feeding orders and flushes as ordered. Agree with orders Last recorded weight is 158.8 kg. Bowel Motility: +1 BM 09/29/23 Labs Reviewed: Hgb 11.5, Alb 2.7, GFR 44, BUN 43, Cre 1.2, Glu 219 Meds Noted: Sedation with fentanyl, versed. Lasix, novolog, protonix, lantus, vancomycin Skin: No pressure related skin breakdown Additional Notes: Tolerating tube feedings well. Agree with current orders Following daily in ICU rounds. Will monitor weight, labs, skin, tube feeding tolerance, meds every Wednesday and Wednesday. .
[2023-10-01 12:13] LABS: Glucose Point of Care 173 mg/dl (65-105)
[2023-10-01] MEDS: CENTRAL LINE FLUSH 10 ML IV PUSH ×2 (15:08→20:51)
[2023-10-01 16:35] LABS: Glucose Point of Care 181 mg/dl (65-105)
[2023-10-01] MEDS: ATORVASTATIN 40 MG TABLET 80 MG PO (20:35)
[2023-10-01] MEDS: INSULIN GLARGINE (*BKC) 100 UNITS/ML 40 UNITS SUB-Q (20:48)
[2023-10-01 20:58] LABS: Glucose Point of Care 149 mg/dl (65-105)
[2023-10-01] MEDS: MIDAZOLAM 100MG/NS 100ML(*CRX) 100 MG/100 ML BAG IV CONT (23:00)
[2023-10-01 23:56] LABS: Glucose Point of Care 124 mg/dl (65-105)
[2023-10-02] VITALS (32 sets, daily range): BP systolic 93–132; BP diastolic 46–87; PULSE 70–107; RESP 16–22; TEMP 36.1–37.1; O2SAT 94–100
[2023-10-02] MEDS: FENTANYL 2,500MCG/NS250ML(*CRX 2,500 MCG/250 ML BAG 17.5 MCG IV CONT (01:21)
[2023-10-02] MEDS: IPRATROPIUM BR 0.02% INH SOLN 0.5 MG/2.5 ML VIAL INHALATION ×4 (02:32→20:11)
[2023-10-02] MEDS: ALBUTEROL SULFATE NEB 2.5 MG/3 ML INH INHALATION ×4 (02:32→20:11)
[2023-10-02 04:58] LABS: Mean Corpuscular HGB Conc 28.9 g/dl (32-36); Mean Corpuscular Hemoglobin 26.7 pg (26-34); Mean Corpuscular Volume 92.2 fl (80-100); Mean Platelet Volume 10.3 fl (7.4-10.4); Platelet Count Result 143 k/mm3 (150-375); Red Blood Count 4.12 M/mm3 (4.2-5.4); Red Cell Distribution Width 20.9 % (11.5-14.5); White Blood Count 5.4 K/mm3 (4.5-10.0)
[2023-10-02 05:00] LABS: Alveolar/Arterial O2 Gradient 218.1 mmHg; Base Excess ABG 8.7 mEq/l (+/-2.0); Carboxyhemoglobin 0.3 % THb (0-2.0); Fractional Inspired Oxygen 50 %; HCO3 ABG 35.1 mEq/l (22.0-26.0); Methemoglobin ABG 0.3 %THb (0-1.5); Oxygen Content ABG 17.2 %vol (16.0-22.0); Oxygen Saturation ABG 94.9 % (95.0-100.0); Oxyhemoglobin 93.1 % THb (90.0-100.0); PCO2 ABG 56.4 mmHg (35.0-45.0); Reduced Hemoglobin 6.3 %THb (0-5.0); Total Hemoglobin 13.1 g/dL (12.0-18.0); pH ABG 7.412 (7.350-7.450)
[2023-10-02 05:01] LABS: Arterial Blood Gas PEEP 8 cmH2O; Arterial Blood Gas Tidal Volume 420 ml; Arterial Blood Gas Vent Mode CMV; Arterial Blood Gas Ventilator rate 22 /MIN; Device VENTILATOR; Modified Allen's Test Pass; Site Drawn LEFT RADIAL
[2023-10-02 05:09] LABS: Alanine Aminotransferase 10 U/L (6-35); Albumin Level 3.1 g/dL (3.5-5.1); Alkaline Phosphatase 63 U/L (38-126); Anion Gap 2 mmol/L (8-16); Aspartate Amino Transferase 25 U/L (14-36); Bilirubin,Total 0.4 mg/dL (0.2-1.3); Blood Urea Nitrogen 49 mg/dL (7-17); Calcium 8.6 mg/dL (8.4-10.2); Carbon Dioxide 39 mmol/L (22-30); Chloride 97 mmol/L (98-107); Estimated CRCL calculation 58 ml/min; Estimated Glomerular Filt Rate 44; Glucose 109 mg/dL (65-110); Magnesium 1.7 mg/dL (1.6-2.3); Potassium 3.2 mmol/L (3.4-5.0); Sodium 138 mmol/L (137-145)
[2023-10-02] MEDS: CENTRAL LINE FLUSH 10 ML IV PUSH ×3 (05:54→20:34)
[2023-10-02 06:10] LABS: Glucose Point of Care 115 mg/dl (65-105)
[2023-10-02] MEDS: polyethylene glycoL 3350 17 GM POWD.PACK PO (08:30)
[2023-10-02] MEDS: FUROSEMIDE INJ 40 MG/4 ML VIAL IV PUSH ×2 (08:30→16:20)
[2023-10-02] MEDS: DOXYCYCLINE HYCLATE 100 MG TABLET FEED TUBE ×2 (08:30→20:16)
[2023-10-02] MEDS: POTASSIUM CHLORIDE 20 MEQ PACKET (FOR LIQUID) 40 MEQ FEED TUBE ×3 (08:31→20:16)
[2023-10-02] MEDS: cefTRIAXone 2 GM/NS 100 ML 2 GM/100 ML BAG IVPB (08:31)
[2023-10-02] MEDS: PANTOPRAZOLE SODIUM IV 40 MG VIAL IV PUSH (08:32)
[2023-10-02] MEDS: APIXABAN 2.5 MG TABLET PO ×2 (08:32→20:16)
[2023-10-02] MEDS: INSULIN GLARGINE (*BKC) 100 UNITS/ML 20 UNITS SUB-Q (08:32)
[2023-10-02] MEDS: TOLNAFTATE 1% POWDER 45 GM BTL 1 APPLIC TOPICAL ×2 (08:32→20:16)
[2023-10-02] MEDS: ALBUMIN HUMAN 25% 25 GM/100 ML 100 ML IVPB (08:35)
[2023-10-02 09:21] LABS: Glucose Point of Care 116 mg/dl (65-105)
--- NOTE | 2023-10-02 09:38 | P.PNINT_ITS ---
Progress Note: A&P Assessment and Plan (1) Acute on chronic respiratory failure with hypoxia and hypercapnia: Code(s): J96.21 - Acute and chronic respiratory failure with hypoxia; J96.22 - Acute and chronic respiratory failure with hypercapnia Status: Acute Assessment and Plan: Patient has multifactorial chronic respiratory failure and is on oxygen at home. Her respiratory failure secondary to diastolic dysfunction, pulmonary hypertension obesity hypoventilation, COPD, congestive heart failure, RSV infection CT chest suggest atelectasis with some areas of infiltrate and large hiatal hernia ABG improved after intubation and mechanical ventilation Vent settings reviewed continue FiO2 of 40%. Decrease peep to 8 Chest x-ray reviewed 09/30 I placed patient on PSV trial this morning but patient quickly failed due to increased respiratory rate heart rate drop in saturation 2 patient placed again on PSV trial twice after holding sedation. On 1st attempt patient went into apnea ventilation. Patient was given more time off sedation and PSV was re-attempted and patient's rate was low along with low tidal volumes and she desaturated hence weaning trial was aborted Continue course of Rocephin and doxycycline. Discontinued vancomycin since blood cultures grew contaminant Bronchodilators Hold steroids as patient does not appear to have any significant wheezing Continue diuretics X and will increase the dose Isolation and supportive treatment for RSV infection Blood cultures 1 of 2 is growing Staph hominis which is likely a contaminant. Vancomycin discontinued (2) Obesity hypoventilation syndrome: Code(s): E66.2 - Morbid (severe) obesity with alveolar hypoventilation Status: Acute Assessment and Plan: See above (3) Chronic obstructive pulmonary disease: Code(s): J44.9 - Chronic obstructive pulmonary disease, unspecified Status: Acute Assessment and Plan: See above (4) Congestive heart failure: Code(s): I50.9 - Heart failure, unspecified Status: Acute Assessment and Plan: Most recent echocardiogram Summary ? 1. Left ventricular chamber dimension is normal. ? 2. Left ventricular systolic function is normal, estimated at 60-65%. ? 3. The left ventricular diastolic function is grade I diastolic dysfunction. ? 4. Right ventricular chamber dimension is mildly enlarged. ? 5. Right ventricular systolic function is normal. ? 6. Left atrial chamber dimension is moderately enlarged. ? 7. Right atrial chamber dimension is mildly enlarged. ? 8. There is moderate tricuspid valve regurgitation. ? 9. Estimated pulmonary arterial systolic pressure is 63 mmHg. (5) Acute UTI: Code(s): N39.0 - Urinary tract infection, site not specified Status: Acute Assessment and Plan: UA suggestive of UTI Urine and blood cultures ordered Lactic acid level normal Continue IV Rocephin (6) Insulin dependent type 2 diabetes mellitus: Code(s): E11.9 - Type 2 diabetes mellitus without complications; Z79.4 - [facility] (current) use of insulin Status: Acute Assessment and Plan: Continue lantus and continue sliding scale insulin ordered Continue tube feeds (7) Chronic kidney disease: Code(s): N18.9 - Chronic kidney disease, unspecified Status: Acute Assessment and Plan: Patient has chronic kidney disease and acute creatinine appears to be at baseline Monitor urine output electrolytes and creatinine Hold fluids at this time since patient is overall volume overloaded and continue diuretics as above (8) Encephalopathy:
--- NOTE | 2023-10-02 09:53 | PM.IMPN ---
Progress Note: A&P Assessment and Plan (1) Acute on chronic respiratory failure with hypoxia and hypercapnia: Code(s): J96.21 - Acute and chronic respiratory failure with hypoxia; J96.22 - Acute and chronic respiratory failure with hypercapnia Status: Acute Assessment and Plan: Patient has multifactorial chronic respiratory failure and is on oxygen at home. Her respiratory failure secondary to diastolic dysfunction, pulmonary hypertension obesity hypoventilation, COPD, congestive heart failure, RSV infection CT chest suggest atelectasis with some areas of infiltrate and large hiatal hernia ABG improved after intubation and mechanical ventilation Vent settings reviewed continue FiO2 of 40%. Decrease peep to 8 Chest x-ray reviewed 09/30 I placed patient on PSV trial this morning but patient quickly failed due to increased respiratory rate heart rate drop in saturation 2 patient placed again on PSV trial twice after holding sedation. On 1st attempt patient went into apnea ventilation. Patient was given more time off sedation and PSV was re-attempted and patient's rate was low along with low tidal volumes and she desaturated hence weaning trial was aborted Continue course of Rocephin and doxycycline. Discontinued vancomycin since blood cultures grew contaminant Bronchodilators Hold steroids as patient does not appear to have any significant wheezing Continue diuretics X and will increase the dose Isolation and supportive treatment for RSV infection Blood cultures 1 of 2 is growing Staph hominis which is likely a contaminant. Vancomycin discontinued (2) Obesity hypoventilation syndrome: Code(s): E66.2 - Morbid (severe) obesity with alveolar hypoventilation Status: Acute Assessment and Plan: See above (3) Chronic obstructive pulmonary disease: Code(s): J44.9 - Chronic obstructive pulmonary disease, unspecified Status: Acute Assessment and Plan: See above (4) Congestive heart failure: Code(s): I50.9 - Heart failure, unspecified Status: Acute Assessment and Plan: Most recent echocardiogram Summary ? 1. Left ventricular chamber dimension is normal. ? 2. Left ventricular systolic function is normal, estimated at 60-65%. ? 3. The left ventricular diastolic function is grade I diastolic dysfunction. ? 4. Right ventricular chamber dimension is mildly enlarged. ? 5. Right ventricular systolic function is normal. ? 6. Left atrial chamber dimension is moderately enlarged. ? 7. Right atrial chamber dimension is mildly enlarged. ? 8. There is moderate tricuspid valve regurgitation. ? 9. Estimated pulmonary arterial systolic pressure is 63 mmHg. (5) Acute UTI: Code(s): N39.0 - Urinary tract infection, site not specified Status: Acute Assessment and Plan: UA suggestive of UTI Urine and blood cultures ordered Lactic acid level normal Continue IV Rocephin (6) Insulin dependent type 2 diabetes mellitus: Code(s): E11.9 - Type 2 diabetes mellitus without complications; Z79.4 - penitentiary (current) use of insulin Status: Acute Assessment and Plan: Continue lantus and continue sliding scale insulin ordered Continue tube feeds (7) Chronic kidney disease: Code(s): N18.9 - Chronic kidney disease, unspecified Status: Acute Assessment and Plan: Patient has chronic kidney disease and acute creatinine appears to be at baseline Monitor urine output electrolytes and creatinine Hold fluids at this time since patient is overall volume overloaded and continue diuretics as above (8) Encephalopathy: Code(s): G93.40 - Encephalopathy, unspecified Status: Acute Assessment and Plan: Likely toxic metabolic encephalopathy. Patient did receive sedation Head CT unchanged Normal ammonia and TSH (9) Candidiasis, intertrigo: Code(s): B37.2 - Candidiasis of skin and nail Status: Acute Assessment and Plan:
[2023-10-02 12:57] LABS: Glucose Point of Care 132 mg/dl (65-105)
[2023-10-02 15:19] LABS: Glucose Point of Care 159 mg/dl (65-105)
[2023-10-02] MEDS: ATORVASTATIN 40 MG TABLET 80 MG PO (20:16)
[2023-10-02] MEDS: INSULIN GLARGINE (*BKC) 100 UNITS/ML 40 UNITS SUB-Q (20:16)
[2023-10-02 20:42] LABS: Glucose Point of Care 158 mg/dl (65-105)
[2023-10-03] VITALS (39 sets, daily range): BP systolic 120–157; BP diastolic 52–65; PULSE 79–104; RESP 20–23; TEMP 37–37.9; O2SAT 95–100
[2023-10-03] MEDS: MINERAL OIL/WHITE PETROLATUM OINTMENT 1 APPLIC EACH EYE ×3 (00:11→20:14)
[2023-10-03 00:16] LABS: Glucose Point of Care 166 mg/dl (65-105)
[2023-10-03] MEDS: FENTANYL 2,500MCG/NS250ML(*CRX 2,500 MCG/250 ML BAG 12.5 MCG IV CONT (01:36)
[2023-10-03] MEDS: ALBUTEROL SULFATE NEB 2.5 MG/3 ML INH INHALATION ×4 (01:52→20:18)
[2023-10-03] MEDS: IPRATROPIUM BR 0.02% INH SOLN 0.5 MG/2.5 ML VIAL INHALATION ×4 (01:52→20:19)
[2023-10-03 04:37] LABS: Hematocrit 38.4 % (37.0-47.0); Hemoglobin 11.3 g/dL (12.0-15.0); Mean Corpuscular HGB Conc 29.4 g/dl (32-36); Mean Corpuscular Hemoglobin 26.9 pg (26-34); Mean Corpuscular Volume 91.4 fl (80-100); Mean Platelet Volume 10.1 fl (7.4-10.4); Platelet Count Result 136 k/mm3 (150-375); Red Cell Distribution Width 20.8 % (11.5-14.5); White Blood Count 5.9 K/mm3 (4.5-10.0)
[2023-10-03 04:49] LABS: Alanine Aminotransferase 10 U/L (6-35); Albumin Level 3.1 g/dL (3.5-5.1); Alkaline Phosphatase 67 U/L (38-126); Anion Gap 2 mmol/L (8-16); Aspartate Amino Transferase 26 U/L (14-36); Bilirubin,Total 0.6 mg/dL (0.2-1.3); Blood Urea Nitrogen 46 mg/dL (7-17); Carbon Dioxide 37 mmol/L (22-30); Chloride 100 mmol/L (98-107); Estimated CRCL calculation 63 ml/min; Estimated Glomerular Filt Rate 49; Glucose 171 mg/dL (65-110); Magnesium 1.8 mg/dL (1.6-2.3); Potassium 4.3 mmol/L (3.4-5.0); Sodium 139 mmol/L (137-145)
[2023-10-03 05:45] LABS: Alveolar/Arterial O2 Gradient 156.5 mmHg; Base Excess ABG 10.3 mEq/l (+/-2.0); Carboxyhemoglobin 0.3 % THb (0-2.0); Fractional Inspired Oxygen 40 %; HCO3 ABG 34.7 mEq/l (22.0-26.0); Methemoglobin ABG 0.3 %THb (0-1.5); Oxygen Content ABG 16.6 %vol (16.0-22.0); Oxygen Saturation ABG 96.2 % (95.0-100.0); Oxyhemoglobin 94.3 % THb (90.0-100.0); PCO2 ABG 45.4 mmHg (35.0-45.0); PO2 ABG 76.5 mmHg (80.0-100.0); PO2 FiO2 Ratio Arterial Blood 1.91 %; Reduced Hemoglobin 5.1 %THb (0-5.0); Total Hemoglobin 12.5 g/dL (12.0-18.0); pH ABG 7.501 (7.350-7.450)
[2023-10-03 05:46] LABS: Device VENTILATOR; Modified Allen's Test Pass; Site Drawn LEFT RADIAL
[2023-10-03 05:47] LABS: Arterial Blood Gas PEEP 10 cmH2O; Arterial Blood Gas Tidal Volume 420 ml; Arterial Blood Gas Vent Mode CMV; Arterial Blood Gas Ventilator rate 22 /MIN
[2023-10-03] MEDS: CENTRAL LINE FLUSH 10 ML IV PUSH ×3 (06:01→20:14)
--- NOTE | 2023-10-03 08:10 | PM.IMPN ---
Progress Note: A&P Assessment and Plan (1) Acute on chronic respiratory failure with hypoxia and hypercapnia: Code(s): J96.21 - Acute and chronic respiratory failure with hypoxia; J96.22 - Acute and chronic respiratory failure with hypercapnia Status: Acute Assessment and Plan: Patient has multifactorial chronic respiratory failure and is on oxygen at home. Her respiratory failure secondary to diastolic dysfunction, pulmonary hypertension obesity hypoventilation, COPD, congestive heart failure, RSV infection CT chest suggest atelectasis with some areas of infiltrate and large hiatal hernia 2/: Remains intubated with FIO2 0.4 on CMV at 22/min with PEEP 10, TV 420, 7.51/45.4/76.5. Wean as tolerated. (2) Obesity hypoventilation syndrome: Code(s): E66.2 - Morbid (severe) obesity with alveolar hypoventilation Status: Acute Assessment and Plan: Chronic (3) Respiratory syncytial virus: Code(s): B33.8 - Other specified viral diseases Status: Acute Assessment and Plan: See above (4) Chronic obstructive pulmonary disease: Code(s): J44.9 - Chronic obstructive pulmonary disease, unspecified Status: Acute Assessment and Plan: Chronic (5) Congestive heart failure: Code(s): I50.9 - Heart failure, unspecified Status: Acute Assessment and Plan: Most recent echocardiogram Summary ? 1. Left ventricular chamber dimension is normal. ? 2. Left ventricular systolic function is normal, estimated at 60-65%. ? 3. The left ventricular diastolic function is grade I diastolic dysfunction. ? 4. Right ventricular chamber dimension is mildly enlarged. ? 5. Right ventricular systolic function is normal. ? 6. Left atrial chamber dimension is moderately enlarged. ? 7. Right atrial chamber dimension is mildly enlarged. ? 8. There is moderate tricuspid valve regurgitation. ? 9. Estimated pulmonary arterial systolic pressure is 63 mmHg. (6) Acute UTI: Code(s): N39.0 - Urinary tract infection, site not specified Status: Acute Assessment and Plan: UA suggestive of UTI Urine culture negative 10/03 and blood with staph hominis (contaminant). Consider d/c ceftriaxone. 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 Status: Acute Assessment and Plan: Continue lantus and continue sliding scale insulin ordered Continue tube feeds (8) Chronic kidney disease: Code(s): N18.9 - Chronic kidney disease, unspecified Status: Acute Assessment and Plan: Patient has chronic kidney disease and acute creatinine appears to be at baseline Monitor urine output electrolytes and creatinine Hold fluids at this time since patient is overall volume overloaded and continue diuretics as above (9) Encephalopathy: Code(s): G93.40 - Encephalopathy, unspecified Status: Acute Assessment and Plan: Likely toxic metabolic encephalopathy. Patient did receive sedation Head CT unchanged Normal ammonia and TSH (10) Candidiasis, intertrigo: Code(s): B37.2 - Candidiasis of skin and nail Status: Acute Assessment and Plan: Topical anti fungal powder ordered Plan DVT prophylaxis -continue Eliquis Stress ulcer prophylaxis -Protonix Nutrition -continue Tube Feeds Code Status - Full Code Subjective Date/time seen: 10/03/23 08:10 Interval history: Remains on vent. Review of Systems Review of Systems: ROS unobtainable: Yes unobtainable due to medical condition Exam Const: Other: HEENT: PERRL, sclerae nonicteric, pharyngeal mucosa pink and intact NECK: No JVD CHEST: Diiminished BS, slightly coarse. ET tube in place, on ventilator. HEART: NL S1/S2, regular, no murmur ABDOMEN: BS+, soft, nontender, no mass, no bruits EXTREMITIES: Trace pitting edema of legs. NEUROLOGIC: CN intact and
[2023-10-03] MEDS: TOLNAFTATE 1% POWDER 45 GM BTL 1 APPLIC TOPICAL ×2 (08:20→20:14)
[2023-10-03] MEDS: DOXYCYCLINE HYCLATE 100 MG TABLET FEED TUBE ×2 (08:20→20:13)
[2023-10-03] MEDS: PANTOPRAZOLE SODIUM IV 40 MG VIAL IV PUSH (08:20)
[2023-10-03] MEDS: APIXABAN 2.5 MG TABLET PO ×2 (08:20→20:13)
[2023-10-03] MEDS: polyethylene glycoL 3350 17 GM POWD.PACK PO (08:20)
[2023-10-03] MEDS: FUROSEMIDE INJ 40 MG/4 ML VIAL IV PUSH ×2 (08:21→16:46)
[2023-10-03] MEDS: cefTRIAXone 2 GM/NS 100 ML 2 GM/100 ML BAG IVPB (08:21)
[2023-10-03] MEDS: INSULIN GLARGINE (*BKC) 100 UNITS/ML 20 UNITS SUB-Q (08:23)
--- NOTE | 2023-10-03 08:26 | WPDINTPN ---
Progress Note: A&P Assessment and Plan (1) Acute on chronic respiratory failure with hypoxia and hypercapnia: Code(s): J96.21 - Acute and chronic respiratory failure with hypoxia; J96.22 - Acute and chronic respiratory failure with hypercapnia Status: Acute Assessment and Plan: Patient has multifactorial chronic respiratory failure and is on oxygen at home. Her respiratory failure secondary to diastolic dysfunction, pulmonary hypertension obesity hypoventilation, COPD, congestive heart failure, RSV infection CT chest suggest atelectasis with some areas of infiltrate and large hiatal hernia 2 I placed patient on PSV trial this morning but patient quickly failed due to increased respiratory rate heart rate drop in saturation 2 patient placed again on PSV trial twice after holding sedation. On 1st attempt patient went into apnea ventilation. Patient was given more time off sedation and PSV was re-attempted and patient's rate was low along with low tidal volumes and she desaturated hence weaning trial was aborted 10/03 ABG and chest x-ray reviewed sedation holiday and evaluation to PSV again today. Decrease rate to 20 and tidal volume to 400 Continue course of Rocephin and doxycycline. Discontinued vancomycin since blood cultures grew contaminant Bronchodilators Hold steroids as patient does not appear to have any significant wheezing Continue diuretics X and will increase the dose Isolation and supportive treatment for RSV infection Blood cultures 1 of 2 is growing Staph hominis which is likely a contaminant. Vancomycin discontinued (2) Obesity hypoventilation syndrome: Code(s): E66.2 - Morbid (severe) obesity with alveolar hypoventilation Status: Acute Assessment and Plan: See above (3) Chronic obstructive pulmonary disease: Code(s): J44.9 - Chronic obstructive pulmonary disease, unspecified Status: Acute Assessment and Plan: See above (4) Congestive heart failure: Code(s): I50.9 - Heart failure, unspecified Status: Acute Assessment and Plan: Most recent echocardiogram Summary ? 1. Left ventricular chamber dimension is normal. ? 2. Left ventricular systolic function is normal, estimated at 60-65%. ? 3. The left ventricular diastolic function is grade I diastolic dysfunction. ? 4. Right ventricular chamber dimension is mildly enlarged. ? 5. Right ventricular systolic function is normal. ? 6. Left atrial chamber dimension is moderately enlarged. ? 7. Right atrial chamber dimension is mildly enlarged. ? 8. There is moderate tricuspid valve regurgitation. ? 9. Estimated pulmonary arterial systolic pressure is 63 mmHg. (5) Acute UTI: Code(s): N39.0 - Urinary tract infection, site not specified Status: Acute Assessment and Plan: UA suggestive of UTI Urine and blood cultures ordered Lactic acid level normal Continue IV Rocephin (6) Insulin dependent type 2 diabetes mellitus: Code(s): E11.9 - Type 2 diabetes mellitus without complications; Z79.4 - alf (current) use of insulin Status: Acute Assessment and Plan: Continue lantus and continue sliding scale insulin ordered Continue tube feeds (7) Chronic kidney disease: Code(s): N18.9 - Chronic kidney disease, unspecified Status: Acute Assessment and Plan: Patient has chronic kidney disease and acute creatinine appears to be at baseline Monitor urine output electrolytes and creatinine Hold fluids at this time since patient is overall volume overloaded and continue diuretics as above (8) Encephalopathy: Code(s): G93.40 - Encephalopathy, unspecified Status: Acute Assessment and Plan: Likely toxic metabolic encephalopathy. Patient did receive sedation Head CT unchanged Normal ammonia and TSH (9) Candidiasis, intertrigo: Code(s): B37.2 - Candidiasis of skin and nail Status: Acute Assessment and Plan: Topical anti
[2023-10-03 08:40] LABS: Glucose Point of Care 160 mg/dl (65-105)
[2023-10-03] MEDS: ALBUMIN HUMAN 25% 25 GM/100 ML 100 ML IVPB (08:56)
[2023-10-03 12:23] LABS: Glucose Point of Care 203 mg/dl (65-105)
[2023-10-03] MEDS: INSULIN ASPART (*BKC) 100 UNITS/ML SUB-Q ×3 (14:14→20:14)
[2023-10-03 16:38] LABS: Glucose Point of Care 229 mg/dl (65-105)
[2023-10-03] MEDS: dexmedeTOMIDine 400 MCG/100 ML 400 MCG/100 ML BAG 8.24 MCG IV CONT (18:40)
[2023-10-03 20:07] LABS: Glucose Point of Care 229 mg/dl (65-105)
[2023-10-03] MEDS: ATORVASTATIN 40 MG TABLET 80 MG PO (20:13)
[2023-10-03] MEDS: INSULIN GLARGINE (*BKC) 100 UNITS/ML 40 UNITS SUB-Q (20:13)
[2023-10-04] VITALS (42 sets, daily range): BP systolic 121–166; BP diastolic 59–101; PULSE 78–117; RESP 18–24; TEMP 36.6–37.7; O2SAT 90–98
[2023-10-04] MEDS: INSULIN ASPART (*BKC) 100 UNITS/ML SUB-Q ×7 (00:02→23:51)
[2023-10-04 00:10] LABS: Glucose Point of Care 229 mg/dl (65-105)
[2023-10-04] MEDS: ALBUTEROL SULFATE NEB 2.5 MG/3 ML INH INHALATION ×4 (01:46→20:03)
[2023-10-04] MEDS: IPRATROPIUM BR 0.02% INH SOLN 0.5 MG/2.5 ML VIAL INHALATION ×4 (01:46→20:03)
[2023-10-04] MEDS: CENTRAL LINE FLUSH 10 ML IV PUSH ×3 (04:46→21:24)
[2023-10-04 04:53] LABS: Glucose Point of Care 222 mg/dl (65-105)
[2023-10-04 05:00] LABS: Alanine Aminotransferase 10 U/L (6-35); Albumin Level 3.5 g/dL (3.5-5.1); Alkaline Phosphatase 71 U/L (38-126); Anion Gap 6 mmol/L (8-16); Aspartate Amino Transferase 24 U/L (14-36); Bilirubin,Total 0.9 mg/dL (0.2-1.3); Blood Urea Nitrogen 45 mg/dL (7-17); Calcium 9.3 mg/dL (8.4-10.2); Carbon Dioxide 36 mmol/L (22-30); Chloride 98 mmol/L (98-107); Estimated CRCL calculation 64 ml/min; Estimated Glomerular Filt Rate 49; Glucose 222 mg/dL (65-110); Magnesium 1.9 mg/dL (1.6-2.3); Sodium 140 mmol/L (137-145)
[2023-10-04 05:02] LABS: Hematocrit 40.5 % (37.0-47.0); Hemoglobin 11.8 g/dL (12.0-15.0); Mean Corpuscular HGB Conc 29.1 g/dl (32-36); Mean Corpuscular Hemoglobin 26.8 pg (26-34); Mean Corpuscular Volume 91.8 fl (80-100); Mean Platelet Volume 11.1 fl (7.4-10.4); Platelet Count Result 144 k/mm3 (150-375); Red Blood Count 4.41 M/mm3 (4.2-5.4); Red Cell Distribution Width 20.1 % (11.5-14.5); White Blood Count 7.5 K/mm3 (4.5-10.0)
[2023-10-04 05:35] LABS: Base Excess ABG 8.6 mEq/l (+/-2.0); Carboxyhemoglobin 0.3 % THb (0-2.0); Fractional Inspired Oxygen 40 %; HCO3 ABG 32.5 mEq/l (22.0-26.0); Methemoglobin ABG 0.3 %THb (0-1.5); Oxygen Content ABG 17.2 %vol (16.0-22.0); Oxygen Saturation ABG 96.5 % (95.0-100.0); Oxyhemoglobin 94.5 % THb (90.0-100.0); PO2 ABG 77.9 mmHg (80.0-100.0); PO2 FiO2 Ratio Arterial Blood 1.95 %; Reduced Hemoglobin 4.9 %THb (0-5.0); Total Hemoglobin 12.9 g/dL (12.0-18.0)
[2023-10-04 05:37] LABS: Arterial Blood Gas PEEP 10 cmH2O; Arterial Blood Gas Tidal Volume 420 ml; Arterial Blood Gas Vent Mode CMV; Arterial Blood Gas Ventilator rate 22 /MIN; Device VENTILATOR; Modified Allen's Test Pass; Site Drawn LEFT RADIAL; pH ABG 7.506 (7.350-7.450)
[2023-10-04] MEDS: dexmedeTOMIDine 400 MCG/100 ML 400 MCG/100 ML BAG 8.24 MCG IV CONT (05:58)
[2023-10-04 07:38] LABS: Glucose Point of Care 244 mg/dl (65-105)
[2023-10-04] MEDS: polyethylene glycoL 3350 17 GM POWD.PACK PO (08:40)
[2023-10-04] MEDS: FUROSEMIDE INJ 40 MG/4 ML VIAL IV PUSH ×2 (08:40→17:18)
[2023-10-04] MEDS: APIXABAN 2.5 MG TABLET PO ×2 (08:40→21:24)
[2023-10-04] MEDS: MINERAL OIL/WHITE PETROLATUM OINTMENT 1 APPLIC EACH EYE ×2 (08:40→21:23)
[2023-10-04] MEDS: cefTRIAXone 2 GM/NS 100 ML 2 GM/100 ML BAG IVPB (08:40)
[2023-10-04] MEDS: PANTOPRAZOLE SODIUM IV 40 MG VIAL IV PUSH (08:40)
[2023-10-04] MEDS: INSULIN GLARGINE (*BKC) 100 UNITS/ML 30 UNITS SUB-Q (08:41)
[2023-10-04] MEDS: TOLNAFTATE 1% POWDER 45 GM BTL 1 APPLIC TOPICAL ×2 (08:41→21:24)
--- NOTE | 2023-10-04 08:47 | WPDINTPN ---
Progress Note: A&P Assessment and Plan (1) Acute on chronic respiratory failure with hypoxia and hypercapnia: Code(s): J96.21 - Acute and chronic respiratory failure with hypoxia; J96.22 - Acute and chronic respiratory failure with hypercapnia Status: Acute Assessment and Plan: Patient has multifactorial chronic respiratory failure and is on oxygen at home. Her respiratory failure secondary to diastolic dysfunction, pulmonary hypertension obesity hypoventilation, COPD, congestive heart failure, RSV infection CT chest suggest atelectasis with some areas of infiltrate and large hiatal hernia 2 I placed patient on PSV trial this morning but patient quickly failed due to increased respiratory rate heart rate drop in saturation / patient placed again on PSV trial twice after holding sedation. On 1st attempt patient went into apnea ventilation. Patient was given more time off sedation and PSV was re-attempted and patient's rate was low along with low tidal volumes and she desaturated hence weaning trial was aborted 10/03 ABG and chest x-ray reviewed sedation holiday and evaluation to PSV again today. Decrease rate to 20 and tidal volume to 400 2/5 on holding sedation patient became tachypneic asynchronous with the ventilator and desaturated. Increased work of breathing. PSV trial was not attempted Continue course of Rocephin and doxycycline for a course. Discontinued vancomycin since blood cultures grew contaminant Bronchodilators Continue to hold steroids as patient does not appear to have any significant wheezing Continue diuretics Isolation and supportive treatment for RSV infection Blood cultures 1 of 2 is growing Staph hominis which is likely a contaminant. Vancomycin discontinued (2) Obesity hypoventilation syndrome: Code(s): E66.2 - Morbid (severe) obesity with alveolar hypoventilation Status: Acute Assessment and Plan: See above (3) Chronic obstructive pulmonary disease: Code(s): J44.9 - Chronic obstructive pulmonary disease, unspecified Status: Acute Assessment and Plan: See above (4) Congestive heart failure: Code(s): I50.9 - Heart failure, unspecified Status: Acute Assessment and Plan: Most recent echocardiogram Summary ? 1. Left ventricular chamber dimension is normal. ? 2. Left ventricular systolic function is normal, estimated at 60-65%. ? 3. The left ventricular diastolic function is grade I diastolic dysfunction. ? 4. Right ventricular chamber dimension is mildly enlarged. ? 5. Right ventricular systolic function is normal. ? 6. Left atrial chamber dimension is moderately enlarged. ? 7. Right atrial chamber dimension is mildly enlarged. ? 8. There is moderate tricuspid valve regurgitation. ? 9. Estimated pulmonary arterial systolic pressure is 63 mmHg. (5) Acute UTI: Code(s): N39.0 - Urinary tract infection, site not specified Status: Acute Assessment and Plan: UA suggestive of UTI Urine and blood cultures ordered Lactic acid level normal Continue IV Rocephin (6) Insulin dependent type 2 diabetes mellitus: Code(s): E11.9 - Type 2 diabetes mellitus without complications; Z79.4 - [facility] (current) use of insulin Status: Acute Assessment and Plan: Continue lantus and increase a.m. dose continue sliding scale insulin ordered Continue tube feeds (7) Chronic kidney disease: Code(s): N18.9 - Chronic kidney disease, unspecified Status: Acute Assessment and Plan: Patient has chronic kidney disease and acute creatinine appears to be at baseline Monitor urine output electrolytes and creatinine Hold fluids at this time since patient is overall volume overloaded and continue diuretics as above (8) Encephalopathy: Code(s): G93.40 - Encephalopathy, unspecified Status: Acute Assessment and Plan: Likely toxic metabolic encephalopathy. Patient did receive sedation Head CT unchan
[2023-10-04] MEDS: ALBUMIN HUMAN 25% 25 GM/100 ML 100 ML IVPB (09:54)
--- NOTE | 2023-10-04 11:09 | PCFNICU ---
ICU Rounding Note: Pt current nutrition is Vital 1.2 @ 55 ml/h. Flush 30 ml q 4 hours. Nutrition recommendation: Continue with current tube feeding orders. Agree with orders Last recorded weight is 163.2 kg. Bowel Motility: Last BM charted 09/29/23. Per RN, Miralax is regularly scheduled and pt to be given suppository this morning Labs Reviewed: Hgb 11.8, GFR 49, BUN 45, Cre 1.1, Glu 244 Meds Noted: Sedation with precedex, fentanyl. Miralax, Protonix, vancomycin Skin: No pressure related breakdown Additional Notes: Vital 1.2 @ 55 kcal/kg= 1452 kcal, 91 g protein, 981 ml free water. Meeting 100% estimated protein needs 1-1.2 g/kg IBW. 25 kcal/kg IBW= 1300 kcal. tolerating well. Following daily in ICU rounds. Will monitor weight, labs, skin, tube feeding tolerance, meds every Wednesday and Wednesday. .
[2023-10-04] MEDS: BISACODYL 10 MG SUPPOSITORY RECTAL (12:04)
[2023-10-04] MEDS: dexmedeTOMIDine 400 MCG/100 ML 400 MCG/100 ML BAG 24.71 MCG IV CONT ×2 (12:05→17:00)
[2023-10-04 12:18] LABS: Glucose Point of Care 248 mg/dl (65-105)
[2023-10-04] MEDS: hydrALAZINE HCL 20 MG/ML VIAL IV PUSH ×2 (12:24→20:10)
--- NOTE | 2023-10-04 14:40 | PM.IMPN ---
Progress Note: A&P Assessment and Plan (1) Acute on chronic respiratory failure with hypoxia and hypercapnia: Code(s): J96.21 - Acute and chronic respiratory failure with hypoxia; J96.22 - Acute and chronic respiratory failure with hypercapnia Status: Acute Assessment and Plan: Patient admitted for acute on chronic respiratory failure secondary to diastolic dysfunction, pulmonary hypertension obesity hypoventilation, COPD, congestive heart failure, RSV infection Pt is intubated on ventilator ICU MD managing vent Continue respiratory support await improvement (2) Obesity hypoventilation syndrome: Code(s): E66.2 - Morbid (severe) obesity with alveolar hypoventilation Status: Acute Assessment and Plan: See above (3) Chronic obstructive pulmonary disease: Code(s): J44.9 - Chronic obstructive pulmonary disease, unspecified Status: Acute Assessment and Plan: See above (4) Congestive heart failure: Code(s): I50.9 - Heart failure, unspecified Status: Acute Assessment and Plan: Most recent echocardiogram EF is 60% (5) Acute UTI: Code(s): N39.0 - Urinary tract infection, site not specified Status: Acute Assessment and Plan: follow UC Continue IV Rocephin (6) Insulin dependent type 2 diabetes mellitus: Code(s): E11.9 - Type 2 diabetes mellitus without complications; Z79.4 - [employer] (current) use of insulin Status: Acute Assessment and Plan: Continue lantus and increase a.m. dose continue sliding scale insulin ordered Continue tube feeds (7) Chronic kidney disease: Code(s): N18.9 - Chronic kidney disease, unspecified Status: Acute Assessment and Plan: Patient has chronic kidney disease and acute creatinine appears to be at baseline creat is 1 (8) Encephalopathy: Code(s): G93.40 - Encephalopathy, unspecified Status: Acute Assessment and Plan: Likely toxic metabolic encephalopathy. likely secondary to hypoxia Head CT unchanged Normal ammonia and TSH (9) Candidiasis, intertrigo: Code(s): B37.2 - Candidiasis of skin and nail Status: Acute Assessment and Plan: Topical anti fungal powder ordered (10) Respiratory syncytial virus: Code(s): B33.8 - Other specified viral diseases Status: Acute Assessment and Plan: See above Subjective Date/time seen: 10/04/23 14:40 Interval history: 73-year-old female congestive heart failure, hypertension, dyslipidemia, chronic obstructive pulmonary disease, chronic respiratory failure on 2 L nasal cannula, rheumatoid arthritis, insulin-dependent type 2 diabetes mellitus, morbid obesity, and other comorbidities who presented to the emergency department via EMS from a local rehab facility for evaluation of shortness of breath. Pt is intubated on ventilator, found to have RSV infection. Continue to monitor in ICU Review of Systems Review of Systems: Pt on ventilator Exam Const: Other: HEENT: PERRL, sclerae nonicteric, pharyngeal mucosa pink and intact NECK: No JVD CHEST: Diiminished BS, slightly coarse. ET tube in place, on ventilator. HEART: NL S1/S2, regular, no murmur ABDOMEN: BS+, soft, nontender, no mass, no bruits EXTREMITIES: Trace pitting edema of legs. NEUROLOGIC: CN intact and symmetric to inspection. MUSCULOSKELETAL: Tone symmetric. Spontaneous movement of right foot. PSYCH: Drowsy, arouses easily, does not follow commands. Objective Data Vital Signs Vital Signs: Vital Signs - 24 hr 10/03/23 15:00 10/03/23 15:00 10/03/23 16:00 Temperature Pulse Rate 97 97 Respiratory Rate 20 20 Blood Pressure Pulse Oximetry Oxygen Delivery Mechanical Ventilation Fraction of Inspired Oxygen 40 10/03/23 16:00 10/03/23 16:00 10/03/23 16:00 Temperature 37.0 C Pulse Rate 90 90 Respiratory Rate 22 H Blood Pressure 143/63 H Pulse Oximetry 98
[2023-10-04 17:28] LABS: Glucose Point of Care 324 mg/dl (65-105)
[2023-10-04] MEDS: fentaNYL CITRATE INJ (*CRX) 100 MCG/2 ML VIAL 50 MCG IV PUSH (18:15)
[2023-10-04] MEDS: PROPOFOL IV EMULSION 200 MG/20 ML VIAL 60 MG IV PUSH ×2 (18:19→18:25)
[2023-10-04] MEDS: dexmedeTOMIDine 400 MCG/100 ML 400 MCG/100 ML BAG 41.18 MCG IV CONT ×2 (19:48→21:43)
--- NOTE | 2023-10-04 19:54 | PC.NURSE ---
Approximately 1800 RT at bedside due to vent alarming and pt no longer getting adequate tital volume. Noted ET cuff not inflating properly, suspected cuff had blown. Dr. Molina called and ordered staff to call ER physician to replace ET tube. Dr. Quinones to bedside. Ordered fentanyl gtt and precedex gtt to be increased, increased to 150 mcg and 1 mcg respectively. Fentanyl 50 mcg IV push ordered, given by this RN. Dr. Quinones ordered propofol 60 mg IV push to be given x2, DR. QUINONES GAVE PROPOFOL 60 MG IV PUSH X2. Pt adequately sedated, reintubation successful. Vitals remained stable throughout.
[2023-10-04 20:21] LABS: Glucose Point of Care 302 mg/dl (65-105)
[2023-10-04] MEDS: INSULIN GLARGINE (*BKC) 100 UNITS/ML 40 UNITS SUB-Q (21:24)
[2023-10-04] MEDS: ATORVASTATIN 40 MG TABLET 80 MG PO (21:24)
[2023-10-04] MEDS: FENTANYL 2,500MCG/NS250ML(*CRX 2,500 MCG/250 ML BAG 15 MCG IV CONT (21:37)
--- NOTE | 2023-10-04 22:08 | ED.PROCEDURE ---
Procedures Intubation Sedative: fentanyl (propofol) Mg given: 120 Laryngoscope: Jemma (mac 4) ET tube size: 7.5 Tube secured location: teeth (23) Patient tolerated procedure: well
[2023-10-05] VITALS (42 sets, daily range): BP systolic 126–163; BP diastolic 55–76; PULSE 69–83; RESP 16–22; TEMP 37–37.2; O2SAT 94–97
[2023-10-05 00:02] LABS: Glucose Point of Care 280 mg/dl (65-105)
[2023-10-05] MEDS: dexmedeTOMIDine 400 MCG/100 ML 400 MCG/100 ML BAG 41.18 MCG IV CONT (00:09)
[2023-10-05] MEDS: ALBUTEROL SULFATE NEB 2.5 MG/3 ML INH INHALATION ×4 (01:46→20:25)
[2023-10-05] MEDS: IPRATROPIUM BR 0.02% INH SOLN 0.5 MG/2.5 ML VIAL INHALATION ×4 (01:46→20:32)
[2023-10-05] MEDS: dexmedeTOMIDine 400 MCG/100 ML 400 MCG/100 ML BAG 37.06 MCG IV CONT ×8 (02:50→22:30)
[2023-10-05 04:43] LABS: Alveolar/Arterial O2 Gradient 156.3 mmHg; Base Excess ABG 5.7 mEq/l (+/-2.0); Carboxyhemoglobin 0.6 % THb (0-2.0); Fractional Inspired Oxygen 40 %; HCO3 ABG 30.1 mEq/l (22.0-26.0); Methemoglobin ABG 0.3 %THb (0-1.5); Oxygen Content ABG 17.7 %vol (16.0-22.0); Oxygen Saturation ABG 96.4 % (95.0-100.0); Oxyhemoglobin 94.3 % THb (90.0-100.0); PCO2 ABG 42.7 mmHg (35.0-45.0); PO2 ABG 79.8 mmHg (80.0-100.0); Reduced Hemoglobin 4.8 %THb (0-5.0); Total Hemoglobin 13.3 g/dL (12.0-18.0); pH ABG 7.466 (7.350-7.450)
[2023-10-05 04:44] LABS: Device VENTILATOR; Modified Allen's Test Pass; Site Drawn LEFT RADIAL
[2023-10-05 04:45] LABS: Arterial Blood Gas PEEP 10 cmH2O; Arterial Blood Gas Tidal Volume 400 ml; Arterial Blood Gas Vent Mode CMV; Arterial Blood Gas Ventilator rate 18 /MIN
[2023-10-05] MEDS: CENTRAL LINE FLUSH 10 ML IV PUSH ×3 (05:28→20:26)
--- NOTE | 2023-10-05 05:53 | PC.NURSE ---
JUAN F reported to MD Molina per his request.
[2023-10-05 05:57] LABS: Hematocrit 38.6 % (37.0-47.0); Hemoglobin 11.4 g/dL (12.0-15.0); Mean Corpuscular HGB Conc 29.5 g/dl (32-36); Mean Corpuscular Hemoglobin 27.1 pg (26-34); Mean Corpuscular Volume 91.9 fl (80-100); Mean Platelet Volume 11.6 fl (7.4-10.4); Platelet Count Result 146 k/mm3 (150-375); Red Cell Distribution Width 19.3 % (11.5-14.5); White Blood Count 8.2 K/mm3 (4.5-10.0)
[2023-10-05 05:58] LABS: Alanine Aminotransferase 10 U/L (6-35); Albumin Level 3.3 g/dL (3.5-5.1); Alkaline Phosphatase 66 U/L (38-126); Anion Gap 6 mmol/L (8-16); Aspartate Amino Transferase 18 U/L (14-36); Bilirubin,Total 0.8 mg/dL (0.2-1.3); Blood Urea Nitrogen 41 mg/dL (7-17); Calcium 8.9 mg/dL (8.4-10.2); Carbon Dioxide 34 mmol/L (22-30); Chloride 91 mmol/L (98-107); Estimated CRCL calculation 77 ml/min; Estimated Glomerular Filt Rate > 60; Glucose 438 mg/dL (65-110); Magnesium 1.8 mg/dL (1.6-2.3); Potassium 3.5 mmol/L (3.4-5.0); Sodium 131 mmol/L (137-145)
[2023-10-05] MEDS: hydrALAZINE HCL 20 MG/ML VIAL IV PUSH (06:04)
[2023-10-05] MEDS: INSULIN ASPART (*BKC) 100 UNITS/ML SUB-Q ×3 (06:32→16:56)
[2023-10-05 06:35] LABS: Glucose Point of Care 294 mg/dl (65-105)
--- NOTE | 2023-10-05 06:41 | PC.NURSE ---
All abnormal labs called to MD Molina per his request.
[2023-10-05 07:38] LABS: Glucose Point of Care 302 mg/dl (65-105)
[2023-10-05] MEDS: POTASSIUM CHLORIDE 20 MEQ PACKET (FOR LIQUID) 40 MEQ PO (08:43)
[2023-10-05] MEDS: polyethylene glycoL 3350 17 GM POWD.PACK PO (08:43)
[2023-10-05] MEDS: cefTRIAXone 2 GM/NS 100 ML 2 GM/100 ML BAG IVPB (08:43)
[2023-10-05] MEDS: PANTOPRAZOLE SODIUM IV 40 MG VIAL IV PUSH (08:43)
[2023-10-05] MEDS: FUROSEMIDE INJ 40 MG/4 ML VIAL IV PUSH (08:43)
[2023-10-05] MEDS: INSULIN HUMAN REGULAR (*BKC) 100 UNITS/ML 10 UNITS IV PUSH (08:44)
[2023-10-05] MEDS: APIXABAN 2.5 MG TABLET PO ×2 (08:44→20:00)
[2023-10-05] MEDS: INSULIN GLARGINE (*BKC) 100 UNITS/ML 50 UNITS SUB-Q ×2 (08:45→20:21)
[2023-10-05] MEDS: TOLNAFTATE 1% POWDER 45 GM BTL 1 APPLIC TOPICAL ×2 (08:46→20:01)
[2023-10-05] MEDS: MINERAL OIL/WHITE PETROLATUM OINTMENT 1 APPLIC EACH EYE ×2 (08:47→20:04)
--- NOTE | 2023-10-05 11:04 | PCNFU ---
Nutrition Follow-Up Complete: Inadequate Oral Intake as related to mechanical ventilation as evidenced by NPO. Goal: Meet estimated nutritional needs Patient is progressing towards goal. Pt current nutrition is Vital AF 1.2 at 55 ml/hr. Nutrition recommendation: Formula changes to Glucerna 1.2 at 55ml/hr with Prosource once daily. Last recorded weight is 159.3 kg, down from 173 kg on admit. Bowel Motility: +BM reported 2/5 Labs Reviewed:Glu 438, BUN 41 Meds Noted:Lantus, Novolog, Precedex, Fentanyl,Protonix, Miralax, Eliquis. Skin: WNL Additional Notes: Patient remains on a mechanical vent and tube feedings of Vital AF 1.2. Blood sugars have been elevated, today Gluc 438 with POC at [address]. [address] Monitor would like a formula change to Glucerna 1.2. Tube feeding recommendations: Glucerna 1.2 at 55 ml/hr with Protein Modular of Prosource once daily. Total Nutrition: 1622 kcals/93 gms protein/805 ml water. Flush 30 ml q 4 hours. Tube feedings are meeting kcal and protein needs at 100%. Agree with diet orders at this time. Will monitor weight, labs, skin, tube feeding tolerance, meds every Wednesday and Wednesday.
--- NOTE | 2023-10-05 11:38 | WPDINTPN ---
Progress Note: A&P Assessment and Plan (1) Acute on chronic respiratory failure with hypoxia and hypercapnia: Code(s): J96.21 - Acute and chronic respiratory failure with hypoxia; J96.22 - Acute and chronic respiratory failure with hypercapnia Status: Acute Assessment and Plan: Patient has multifactorial chronic respiratory failure and is on oxygen at home. Her respiratory failure secondary to diastolic dysfunction, pulmonary hypertension obesity hypoventilation, COPD, congestive heart failure, RSV infection CT chest suggest atelectasis with some areas of infiltrate and large hiatal hernia 09/30 I placed patient on PSV trial this morning but patient quickly failed due to increased respiratory rate heart rate drop in saturation 10/02 patient placed again on PSV trial twice after holding sedation. On 1st attempt patient went into apnea ventilation. Patient was given more time off sedation and PSV was re-attempted and patient's rate was low along with low tidal volumes and she desaturated hence weaning trial was aborted 10/03 ABG and chest x-ray reviewed sedation holiday and evaluation to PSV again today. Decrease rate to 20 and tidal volume to 400 2/5 on holding sedation patient became tachypneic asynchronous with the ventilator and desaturated. Increased work of breathing. PSV trial was not attempted -Continue course of Rocephin, doxycycline course is completed. Status post vancomycin since blood cultures grew contaminant -continue Bronchodilators -continue to hold steroids as patient does not appear to have any significant wheezing -continue diuretics -continue Isolation and supportive treatment for RSV infection -09/29: Blood cultures 1 of 2 is growing Staph hominis which is likely a contaminant. Vancomycin discontinued -10/01: Blood cultures 1/2 bottles growing Staph epidermidis, likely contaminant as patient is afebrile, normal white count -obtain sputum culture 10/05: Will hold fentanyl and then place patient on pressure support ventilation will evaluate breathing treat trial and possible extubation (2) Obesity hypoventilation syndrome: Code(s): E66.2 - Morbid (severe) obesity with alveolar hypoventilation Status: Acute Assessment and Plan: See above (3) Chronic obstructive pulmonary disease: Code(s): J44.9 - Chronic obstructive pulmonary disease, unspecified Status: Acute Assessment and Plan: See above (4) Congestive heart failure: Code(s): I50.9 - Heart failure, unspecified Status: Acute Assessment and Plan: Most recent echocardiogram 07/28/2023 Summary ? 1. Left ventricular chamber dimension is normal. ? 2. Left ventricular systolic function is normal, estimated at 60-65%. ? 3. The left ventricular diastolic function is grade I diastolic dysfunction. ? 4. Right ventricular chamber dimension is mildly enlarged. ? 5. Right ventricular systolic function is normal. ? 6. Left atrial chamber dimension is moderately enlarged. ? 7. Right atrial chamber dimension is mildly enlarged. ? 8. There is moderate tricuspid valve regurgitation. ? 9. Estimated pulmonary arterial systolic pressure is 63 mmHg. (5) Acute UTI: Code(s): N39.0 - Urinary tract infection, site not specified Status: Acute Assessment and Plan: UA suggestive of UTI 09/29/2023 urine cultures negative Lactic acid level normal Continue IV Rocephin (6) Insulin dependent type 2 diabetes mellitus: Code(s): E11.9 - Type 2 diabetes mellitus without complications; Z79.4 - [facility] (current) use of insulin Status: Acute Assessment and Plan: Patient hyperglycemic, increase Lantus -continue sliding scale insulin ordered -will switch tube feeds to Glucerna (7) Chronic kidney disease: Code(s): N18.9 - Chronic kidney disease, unspecified Status: Acute Assessment and Plan: Patient has chronic kidney disease and acute creatinine appears to be at baseline
[2023-10-05 11:49] LABS: Glucose Point of Care 264 mg/dl (65-105)
--- NOTE | 2023-10-05 16:11 | PM.IMPN ---
Progress Note: A&P Assessment and Plan (1) Acute on chronic respiratory failure with hypoxia and hypercapnia: Code(s): J96.21 - Acute and chronic respiratory failure with hypoxia; J96.22 - Acute and chronic respiratory failure with hypercapnia Status: Acute Assessment and Plan: Assessment and Plan (1) Acute on chronic respiratory failure with hypoxia and hypercapnia: ?Code(s): J96.21 - Acute and chronic respiratory failure with hypoxia; J96.22 - Acute and chronic respiratory failure with hypercapnia ?Status:?Acute ?Assessment and Plan: Patient admitted for acute on chronic respiratory failure secondary to diastolic dysfunction, pulmonary hypertension obesity hypoventilation, COPD, congestive heart failure, RSV infection Pt is intubated on ventilator ICU MD managing vent Continue respiratory support await improvement (2) Obesity hypoventilation syndrome: ?Code(s): E66.2 - Morbid (severe) obesity with alveolar hypoventilation ?Status:?Acute ?Assessment and Plan: See above (3) Chronic obstructive pulmonary disease: ?Code(s): J44.9 - Chronic obstructive pulmonary disease, unspecified ?Status:?Acute ?Assessment and Plan: See above (4) Congestive heart failure: ?Code(s): I50.9 - Heart failure, unspecified ?Status:?Acute ?Assessment and Plan: Most recent echocardiogram EF is 60% (5) Acute UTI: ?Code(s): N39.0 - Urinary tract infection, site not specified ?Status:?Acute ?Assessment and Plan: follow UC Continue IV Rocephin (6) Insulin dependent type 2 diabetes mellitus: ?Code(s): E11.9 - Type 2 diabetes mellitus without complications; Z79.4 - [facility] (current) use of insulin ?Status:?Acute ?Assessment and Plan: Continue lantus and increase a.m. dose continue sliding scale insulin ordered Continue tube feeds (7) Chronic kidney disease: ?Code(s): N18.9 - Chronic kidney disease, unspecified ?Status:?Acute ?Assessment and Plan: Patient has chronic kidney disease and acute creatinine appears to be at baseline creat is 1 (8) Encephalopathy: ?Code(s): G93.40 - Encephalopathy, unspecified ?Status:?Acute ?Assessment and Plan: Likely toxic metabolic encephalopathy.? likely secondary to hypoxia Head CT unchanged Normal ammonia and TSH (9) Candidiasis, intertrigo: ?Code(s): B37.2 - Candidiasis of skin and nail ?Status:?Acute ?Assessment and Plan: Topical anti fungal powder ordered (10) Respiratory syncytial virus: ?Code(s): B33.8 - Other specified viral diseases ?Status:?Acute ?Assessment and Plan: See above (2) Obesity hypoventilation syndrome: Code(s): E66.2 - Morbid (severe) obesity with alveolar hypoventilation Status: Acute Assessment and Plan: See above (3) Chronic obstructive pulmonary disease: Code(s): J44.9 - Chronic obstructive pulmonary disease, unspecified Status: Acute Assessment and Plan: See above (4) Congestive heart failure: Code(s): I50.9 - Heart failure, unspecified Status: Acute Assessment and Plan: Most recent echocardiogram 07/28/2023 Summary ? 1. Left ventricular chamber dimension is normal. ? 2. Left ventricular systolic function is normal, estimated at 60-65%. ? 3. The left ventricular diastolic function is grade I diastolic dysfunction. ? 4. Right ventricular chamber dimension is mildly enlarged. ? 5. Right ventricular systolic function is normal. ? 6. Left atrial chamber dimension is moderately enlarged. ? 7. Right atrial chamber dimension is mildly enlarged. ? 8. There is moderate tricuspid valve regurgitation. ? 9. Estimated pulmonary arterial systolic pressure is 63 mmHg. (5) Acute UTI: Code(s): N39.0 - Urinary tract infection, site not specified Status: Acute Assessment and Plan: UA suggestive of UTI 09/29/2023 urine cultures negative Lactic acid leve
[2023-10-05 16:45] LABS: Glucose Point of Care 205 mg/dl (65-105)
[2023-10-05] MEDS: ATORVASTATIN 40 MG TABLET 80 MG PO (20:00)
[2023-10-05 21:20] LABS: Glucose Point of Care 223 mg/dl (65-105)
[2023-10-05] MEDS: FENTANYL 2,500MCG/NS250ML(*CRX 2,500 MCG/250 ML BAG 10 MCG IV CONT (23:55)
[2023-10-06] VITALS (45 sets, daily range): BP systolic 97–148; BP diastolic 41–96; PULSE 71–96; RESP 14–26; TEMP 36.9–37.4; O2SAT 90–99
[2023-10-06] MEDS: INSULIN ASPART (*BKC) 100 UNITS/ML SUB-Q ×2 (00:14→12:32)
--- NOTE | 2023-10-06 00:17 | PC.NURSE ---
Patient agitated and was able to loosen her restraints on her own. Restraints replaced and sedation titrated up.
[2023-10-06 00:47] LABS: Glucose Point of Care 215 mg/dl (65-105)
[2023-10-06] MEDS: dexmedeTOMIDine 400 MCG/100 ML 400 MCG/100 ML BAG 41.18 MCG IV CONT ×3 (00:59→05:36)
[2023-10-06] MEDS: ALTEPLASE 2 MG VIAL (CATHFLO) IV PUSH (01:58)
[2023-10-06] MEDS: ALBUTEROL SULFATE NEB 2.5 MG/3 ML INH INHALATION ×4 (02:23→21:07)
[2023-10-06] MEDS: IPRATROPIUM BR 0.02% INH SOLN 0.5 MG/2.5 ML VIAL INHALATION ×4 (02:23→21:07)
[2023-10-06 05:28] LABS: Alveolar/Arterial O2 Gradient 143.6 mmHg; Base Excess ABG 6.7 mEq/l (+/-2.0); Carboxyhemoglobin 0.5 % THb (0-2.0); Fractional Inspired Oxygen 40 %; HCO3 ABG 31.1 mEq/l (22.0-26.0); Methemoglobin ABG 0.2 %THb (0-1.5); Oxygen Content ABG 17.3 %vol (16.0-22.0); Oxygen Saturation ABG 97.4 % (95.0-100.0); Oxyhemoglobin 96.2 % THb (90.0-100.0); PCO2 ABG 43.7 mmHg (35.0-45.0); PO2 ABG 91.3 mmHg (80.0-100.0); PO2 FiO2 Ratio Arterial Blood 2.28 %; Reduced Hemoglobin 3.1 %THb (0-5.0); Total Hemoglobin 12.7 g/dL (12.0-18.0)
[2023-10-06 05:29] LABS: Site Drawn LEFT RADIAL
[2023-10-06 05:30] LABS: Arterial Blood Gas PEEP 10 cmH2O; Arterial Blood Gas Vent Mode CMV; Device VENTILATOR; Modified Allen's Test Pass
[2023-10-06 05:31] LABS: Arterial Blood Gas Tidal Volume 400 ml; Arterial Blood Gas Ventilator rate 16 /MIN
[2023-10-06] MEDS: CENTRAL LINE FLUSH 10 ML IV PUSH ×3 (05:39→22:30)
[2023-10-06 06:22] LABS: Glucose Point of Care 189 mg/dl (65-105)
[2023-10-06 06:22] LABS: Glucose Point of Care > 500 mg/dl (65-105)
[2023-10-06 06:44] LABS: Basophils Percent Auto 0.3 % (0.2-1.2); Eosinophils Absolute Auto 0.6 K/mm3 (0-0.3); Eosinophils Percent Auto 6.1 % (0-4.4); Hematocrit 38.7 % (37.0-47.0); Hemoglobin 11.4 g/dL (12.0-15.0); Immature Granulocyte Absolute 0.03 K/mm3 (0.00-0.031); Immature Granulocyte Percent A 0.3 % (0-0.5); Lymphocytes Absolute Auto 0.68 K/mm3 (0.9-3.2); Lymphocytes Percent Auto 7.5 % (18.3-44.2); Mean Corpuscular HGB Conc 29.5 g/dl (32-36); Mean Corpuscular Volume 91.7 fl (80-100); Mean Platelet Volume 12.3 fl (7.4-10.4); Monocytes Absolute Auto 0.9 K/mm3 (0.1-0.6); Monocytes Percent Auto 10.1 % (2.6-8.5); Neutrophils Absolute Auto 6.8 K/mm3 (1.3-6.7); Neutrophils Percent Auto 75.7 % (45.5-73.1); Platelet Count Result 193 k/mm3 (150-375); Red Blood Count 4.22 M/mm3 (4.2-5.4)
[2023-10-06 07:18] LABS: Hypochromasia 1+ (NORMAL); Platelet Estimate Adequate (Adequate); Schistocytes None Seen (NORMAL)
[2023-10-06 07:30] LABS: Glucose Point of Care 198 mg/dl (65-105)
[2023-10-06] MEDS: dexmedeTOMIDine 400 MCG/100 ML 400 MCG/100 ML BAG 45.29 MCG IV CONT (08:17)
[2023-10-06] MEDS: PANTOPRAZOLE SODIUM IV 40 MG VIAL IV PUSH (08:18)
[2023-10-06] MEDS: FUROSEMIDE INJ 40 MG/4 ML VIAL IV PUSH (08:18)
[2023-10-06] MEDS: APIXABAN 2.5 MG TABLET PO ×2 (08:18→22:28)
[2023-10-06] MEDS: polyethylene glycoL 3350 17 GM POWD.PACK PO (08:18)
[2023-10-06] MEDS: TOLNAFTATE 1% POWDER 45 GM BTL 1 APPLIC TOPICAL ×2 (08:20→22:30)
[2023-10-06] MEDS: MINERAL OIL/WHITE PETROLATUM OINTMENT 1 APPLIC EACH EYE ×2 (08:20→22:30)
[2023-10-06] MEDS: INSULIN GLARGINE (*BKC) 100 UNITS/ML 50 UNITS SUB-Q ×2 (08:20→22:30)
[2023-10-06 08:26] LABS: Alanine Aminotransferase 15 U/L (6-35); Albumin Level 3.2 g/dL (3.5-5.1); Alkaline Phosphatase 83 U/L (38-126); Anion Gap 4 mmol/L (8-16); Aspartate Amino Transferase 29 U/L (14-36); Bilirubin,Total 0.5 mg/dL (0.2-1.3); Blood Urea Nitrogen 47 mg/dL (7-17); Carbon Dioxide 34 mmol/L (22-30); Chloride 91 mmol/L (98-107); Estimated CRCL calculation 77 ml/min; Estimated Glomerular Filt Rate > 60; Glucose 399 mg/dL (65-110); Magnesium 1.9 mg/dL (1.6-2.3); Phosphorus 4.2 mg/dL (2.5-4.5); Potassium 3.7 mmol/L (3.4-5.0); Sodium 129 mmol/L (137-145)
[2023-10-06] MEDS: dexmedeTOMIDine 400 MCG/100 ML 400 MCG/100 ML BAG 49.41 MCG IV CONT (10:52)
--- NOTE | 2023-10-06 11:20 | PCFNICU ---
ICU Rounding Note: Pt current nutrition is Glucerna 1.2 at 55 ml/hr. Last recorded weight is 162.5 kg, down from 173 kg from admit. Bowel Motility:+BM reported 2/5 Labs Reviewed:Glu 399, BUN 47, Alb 3.2,Na 129 Meds Noted:Precedex, Lipitor, Lantus, Protonix, Vancomycin, Eliquis Skin: WNL Additional Notes: Patient remains on mechanical vent. Failed breathing trial today. Tube feedings of Glucerna 1.2 at 55 ml/hr, tolerating per nursing. Protein Modular given once daily of Prosource for additional 80 kcals and 20 gms protein. Flush 30 ml q 4 hours. Agree with diet orders. Following daily in ICU rounds. Will monitor weight, labs, skin, tube feeding tolerance, meds every Wednesday and Wednesday.
[2023-10-06 11:47] LABS: Glucose Point of Care 230 mg/dl (65-105)
[2023-10-06] MEDS: dexmedeTOMIDine 400 MCG/100 ML 400 MCG/100 ML BAG 53.53 MCG IV CONT ×2 (12:30→14:18)
--- NOTE | 2023-10-06 13:36 | WPDINTPN ---
Progress Note: A&P Assessment and Plan (1) Acute on chronic respiratory failure with hypoxia and hypercapnia: Code(s): J96.21 - Acute and chronic respiratory failure with hypoxia; J96.22 - Acute and chronic respiratory failure with hypercapnia Status: Acute Assessment and Plan: Patient has multifactorial chronic respiratory failure and is on oxygen at home. Her respiratory failure secondary to diastolic dysfunction, pulmonary hypertension obesity hypoventilation, COPD, congestive heart failure, RSV infection CT chest suggest atelectasis with some areas of infiltrate and large hiatal hernia 09/30 I placed patient on PSV trial this morning but patient quickly failed due to increased respiratory rate heart rate drop in saturation 10/02 patient placed again on PSV trial twice after holding sedation. On 1st attempt patient went into apnea ventilation. Patient was given more time off sedation and PSV was re-attempted and patient's rate was low along with low tidal volumes and she desaturated hence weaning trial was aborted 10/03 ABG and chest x-ray reviewed sedation holiday and evaluation to PSV again today. Decrease rate to 20 and tidal volume to 400 2/5 on holding sedation patient became tachypneic asynchronous with the ventilator and desaturated. Increased work of breathing. PSV trial was not attempted -completed a course of ceftriaxone and doxycycline. Status post vancomycin since blood cultures grew contaminant -continue Bronchodilators -continue to hold steroids as patient does not appear to have any significant wheezing -continue diuretics -stop isolation since has been > 1 week for RSV -09/29: Blood cultures 1 of 2 is growing Staph hominis which is likely a contaminant. Vancomycin discontinued -10/01: Blood cultures 1/2 bottles growing Staph epidermidis, likely contaminant as patient is afebrile, normal white count -10/05: Sputum cultures: No organisms, many white cells seen 10/06: Remains only on Precedex infusion place patient on pressure support 08/06, did not tolerate as she was tachypneic with low tidal volumes. So switched her to ASV mode of ventilation which she is tolerating better. (2) Obesity hypoventilation syndrome: Code(s): E66.2 - Morbid (severe) obesity with alveolar hypoventilation Status: Acute Assessment and Plan: See above (3) Chronic obstructive pulmonary disease: Code(s): J44.9 - Chronic obstructive pulmonary disease, unspecified Status: Acute Assessment and Plan: See above (4) Congestive heart failure: Code(s): I50.9 - Heart failure, unspecified Status: Acute Assessment and Plan: Most recent echocardiogram 07/28/2023 Summary ? 1. Left ventricular chamber dimension is normal. ? 2. Left ventricular systolic function is normal, estimated at 60-65%. ? 3. The left ventricular diastolic function is grade I diastolic dysfunction. ? 4. Right ventricular chamber dimension is mildly enlarged. ? 5. Right ventricular systolic function is normal. ? 6. Left atrial chamber dimension is moderately enlarged. ? 7. Right atrial chamber dimension is mildly enlarged. ? 8. There is moderate tricuspid valve regurgitation. ? 9. Estimated pulmonary arterial systolic pressure is 63 mmHg. (5) Acute UTI: Code(s): N39.0 - Urinary tract infection, site not specified Status: Acute Assessment and Plan: UA suggestive of UTI 09/29/2023 urine cultures negative Lactic acid level normal Status post course of ceftriaxone (6) Insulin dependent type 2 diabetes mellitus: Code(s): E11.9 - Type 2 diabetes mellitus without complications; Z79.4 - long term care pharmacist (current) use of insulin Status: Acute Assessment and Plan: Patient hyperglycemic, increase Lantus -continue sliding scale insulin ordered -will switch tube feeds to Glucerna (7) Chronic kidney disease: Code(s): N18.9 - Chronic kidney disease, unspecified Status: Acute
[2023-10-06] MEDS: dexmedeTOMIDine 400 MCG/100 ML 400 MCG/100 ML BAG 57.65 MCG IV CONT (16:12)
[2023-10-06 16:35] LABS: Glucose Point of Care 160 mg/dl (65-105)
[2023-10-06] MEDS: ACETAMINOPHEN ELIXIR 325 MG/10.15 ML UDC 650 MG PO (17:52)
[2023-10-06] MEDS: dexmedeTOMIDine 400 MCG/100 ML 400 MCG/100 ML BAG 61.76 MCG IV CONT ×4 (17:53→22:33)
[2023-10-06] MEDS: ATORVASTATIN 40 MG TABLET 80 MG PO (22:27)
[2023-10-07] VITALS (31 sets, daily range): BP systolic 126–164; BP diastolic 58–82; PULSE 74–84; RESP 14–26; TEMP 36.4–37.4; O2SAT 88–98
[2023-10-07 00:09] LABS: Glucose Point of Care 105 mg/dl (65-105)
[2023-10-07] MEDS: dexmedeTOMIDine 400 MCG/100 ML 400 MCG/100 ML BAG 61.76 MCG IV CONT ×15 (00:12→23:19)
[2023-10-07] MEDS: ALBUTEROL SULFATE NEB 2.5 MG/3 ML INH INHALATION ×4 (02:30→20:00)
[2023-10-07] MEDS: IPRATROPIUM BR 0.02% INH SOLN 0.5 MG/2.5 ML VIAL INHALATION ×4 (02:30→20:00)
[2023-10-07 05:19] LABS: Hematocrit 39.4 % (37.0-47.0); Hemoglobin 11.7 g/dL (12.0-15.0); Mean Corpuscular HGB Conc 29.7 g/dl (32-36); Mean Platelet Volume 11.1 fl (7.4-10.4); Platelet Count Result 206 k/mm3 (150-375); Red Blood Count 4.33 M/mm3 (4.2-5.4); Red Cell Distribution Width 18.4 % (11.5-14.5); White Blood Count 8.2 K/mm3 (4.5-10.0)
[2023-10-07] MEDS: hydrALAZINE HCL 20 MG/ML VIAL IV PUSH (05:22)
[2023-10-07] MEDS: CENTRAL LINE FLUSH 10 ML IV PUSH ×3 (05:22→20:43)
[2023-10-07 05:30] LABS: Alanine Aminotransferase 19 U/L (6-35); Albumin Level 3.4 g/dL (3.5-5.1); Alkaline Phosphatase 90 U/L (38-126); Anion Gap 3 mmol/L (8-16); Aspartate Amino Transferase 28 U/L (14-36); Bilirubin,Total 0.7 mg/dL (0.2-1.3); Blood Urea Nitrogen 48 mg/dL (7-17); Calcium 9.6 mg/dL (8.4-10.2); Carbon Dioxide 38 mmol/L (22-30); Chloride 99 mmol/L (98-107); Estimated CRCL calculation 69 ml/min; Estimated Glomerular Filt Rate 55; Glucose 109 mg/dL (65-110); Magnesium 2.1 mg/dL (1.6-2.3); Phosphorus 3.8 mg/dL (2.5-4.5); Potassium 3.5 mmol/L (3.4-5.0); Sodium 140 mmol/L (137-145)
[2023-10-07 05:34] LABS: Glucose Point of Care 104 mg/dl (65-105)
[2023-10-07 05:35] LABS: Base Excess ABG 6.4 mEq/l (+/-2.0); HCO3 ABG 30.4 mEq/l (22.0-26.0); PCO2 ABG 41.2 mmHg (35.0-45.0); PO2 ABG 76.2 mmHg (80.0-100.0); pH ABG 7.486 (7.350-7.450)
[2023-10-07 05:36] LABS: Oxygen Saturation ABG 96.1 % (95.0-100.0); Total Hemoglobin 13.1 g/dL (12.0-18.0)
[2023-10-07 05:37] LABS: Alveolar/Arterial O2 Gradient 89.3 mmHg
[2023-10-07 05:38] LABS: Carboxyhemoglobin 0.5 % THb (0-2.0); Methemoglobin ABG 0.2 %THb (0-1.5); Oxyhemoglobin 94.2 % THb (90.0-100.0)
[2023-10-07 05:39] LABS: PO2 FiO2 Ratio Arterial Blood 2.54 %
[2023-10-07 05:40] LABS: Oxygen Content ABG 17.4 %vol (16.0-22.0)
[2023-10-07 05:41] LABS: Device VENTILATOR; Fractional Inspired Oxygen 30 %; Modified Allen's Test Pass; Reduced Hemoglobin 5.1 %THb (0-5.0); Site Drawn RIGHT RADIAL
[2023-10-07 05:42] LABS: Arterial Blood Gas PEEP 8 cmH2O; Arterial Blood Gas Vent Mode ASV
[2023-10-07] MEDS: FUROSEMIDE INJ 40 MG/4 ML VIAL IV PUSH (08:27)
[2023-10-07] MEDS: PANTOPRAZOLE SODIUM IV 40 MG VIAL IV PUSH (08:27)
[2023-10-07] MEDS: POTASSIUM CHLORIDE 20 MEQ PACKET (FOR LIQUID) 40 MEQ FEED TUBE (08:27)
[2023-10-07] MEDS: amLODIPine BESYLATE 5 MG TABLET PO (08:27)
[2023-10-07] MEDS: APIXABAN 2.5 MG TABLET PO ×2 (08:27→20:42)
[2023-10-07] MEDS: MINERAL OIL/WHITE PETROLATUM OINTMENT 1 APPLIC EACH EYE ×2 (08:28→20:43)
[2023-10-07] MEDS: polyethylene glycoL 3350 17 GM POWD.PACK PO (08:28)
[2023-10-07] MEDS: TOLNAFTATE 1% POWDER 45 GM BTL 1 APPLIC TOPICAL ×2 (08:41→20:43)
[2023-10-07 08:45] LABS: Glucose Point of Care 120 mg/dl (65-105)
--- NOTE | 2023-10-07 09:55 | WPDINTPN ---
Progress Note: A&P Assessment and Plan (1) Acute on chronic respiratory failure with hypoxia and hypercapnia: Code(s): J96.21 - Acute and chronic respiratory failure with hypoxia; J96.22 - Acute and chronic respiratory failure with hypercapnia Status: Acute Assessment and Plan: Patient has multifactorial chronic respiratory failure and is on oxygen at home. Her respiratory failure secondary to diastolic dysfunction, pulmonary hypertension obesity hypoventilation, COPD, congestive heart failure, RSV infection CT chest suggest atelectasis with some areas of infiltrate and large hiatal hernia 09/30 I placed patient on PSV trial this morning but patient quickly failed due to increased respiratory rate heart rate drop in saturation 10/02 patient placed again on PSV trial twice after holding sedation. On 1st attempt patient went into apnea ventilation. Patient was given more time off sedation and PSV was re-attempted and patient's rate was low along with low tidal volumes and she desaturated hence weaning trial was aborted 10/03 ABG and chest x-ray reviewed sedation holiday and evaluation to PSV again today. Decrease rate to 20 and tidal volume to 400 2/5 on holding sedation patient became tachypneic asynchronous with the ventilator and desaturated. Increased work of breathing. PSV trial was not attempted -completed a course of ceftriaxone and doxycycline. Status post vancomycin since blood cultures grew contaminant -continue Bronchodilators -continue to hold steroids as patient does not appear to have any significant wheezing -continue diuretics -stop isolation since has been > 1 week for RSV -09/29: Blood cultures 1 of 2 is growing Staph hominis which is likely a contaminant. Vancomycin discontinued -10/01: Blood cultures 1/2 bottles growing Staph epidermidis, likely contaminant as patient is afebrile, normal white count -10/05: Sputum cultures: No organisms, many white cells seen 10/06: Remains only on Precedex infusion place patient on pressure support /8, did not tolerate as she was tachypneic with low tidal volumes. So switched her to ASV mode of ventilation which she is tolerating better. 10/07: Patient tolerated ASV all day and all line yesterday. Place patient on pressure support ventilation 10/8 and tolerating, will decrease to a 8/5 and evaluate if she can be extubated. Continue diuresis (2) Obesity hypoventilation syndrome: Code(s): E66.2 - Morbid (severe) obesity with alveolar hypoventilation Status: Acute Assessment and Plan: See above (3) Chronic obstructive pulmonary disease: Code(s): J44.9 - Chronic obstructive pulmonary disease, unspecified Status: Acute Assessment and Plan: See above (4) Congestive heart failure: Code(s): I50.9 - Heart failure, unspecified Status: Acute Assessment and Plan: Most recent echocardiogram 07/28/2023 Summary ? 1. Left ventricular chamber dimension is normal. ? 2. Left ventricular systolic function is normal, estimated at 60-65%. ? 3. The left ventricular diastolic function is grade I diastolic dysfunction. ? 4. Right ventricular chamber dimension is mildly enlarged. ? 5. Right ventricular systolic function is normal. ? 6. Left atrial chamber dimension is moderately enlarged. ? 7. Right atrial chamber dimension is mildly enlarged. ? 8. There is moderate tricuspid valve regurgitation. ? 9. Estimated pulmonary arterial systolic pressure is 63 mmHg. (5) Acute UTI: Code(s): N39.0 - Urinary tract infection, site not specified Status: Acute Assessment and Plan: UA suggestive of UTI 09/29/2023 urine cultures negative Lactic acid level normal Status post course of ceftriaxone (6) Insulin dependent type 2 diabetes mellitus: Code(s): E11.9 - Type 2 diabetes mellitus without complications; Z79.4 - exterminator termite (current) use of insulin Status: Acute Assessment and Plan: Patient hyperglycemic, -d
[2023-10-07] MEDS: SERTRALINE HCL 50 MG TABLET 100 MG PO (10:32)
[2023-10-07] MEDS: ALPRAZolam (*CRX) 0.5 MG TABLET PO (10:32)
--- NOTE | 2023-10-07 10:58 | PCFNICU ---
ICU Rounding Note: Pt current nutrition is Glucerna 1.2 @ goal rate 55 ml/h with flushes 30 ml H2O q 4 h. Prsource TF once per day. Total 1532 kcal (100% EER @ 30 kcal/kg IBW) , 93 g protein (71% estimated protein needs @ 2.5 g/kg IBW), 974 ml free water. Nutrition recommendation: If pt is not extubated today, may recommend increasing Prosource to BID for 1612 kcal, 113 g protein (87% estimated protein needs @ 2.5g/kg IBW), 974 ml fluid to better meet protein needs Last recorded weight is 166.4 kg. Bowel Motility: Last bowel movement 10/04/23 Labs Reviewed: Hgb 11.7, alb 3.4, BUN 48 Meds Noted: Lipitor, Lasix, Novolog, Lantus, miralax, eliquis, protonix Skin: No pressure injuries Additional Notes: ICU vent day 9. Pt on breathing trial with hope to extubate today. If not, need to increase protein modulars to meet closer to estimated protein needs. Following daily in ICU rounds. Will monitor weight, labs, skin, tube feeding tolerance, meds every Wednesday and Wednesday. .
[2023-10-07 11:29] LABS: Glucose Point of Care 152 mg/dl (65-105)
[2023-10-07 17:56] LABS: Glucose Point of Care 111 mg/dl (65-105)
[2023-10-07] MEDS: busPIRone HCL 2.5 MG TABLET PO (20:43)
[2023-10-07] MEDS: INSULIN GLARGINE (*BKC) 100 UNITS/ML 20 UNITS SUB-Q (20:43)
[2023-10-07] MEDS: busPIRone HCL 5 MG TABLET PO (20:43)
[2023-10-07] MEDS: ATORVASTATIN 40 MG TABLET 80 MG PO (20:43)
[2023-10-07] MEDS: ALPRAZolam (*CRX) 0.25 MG TABLET PO (22:08)
[2023-10-08] VITALS (33 sets, daily range): BP systolic 127–165; BP diastolic 61–95; PULSE 73–95; RESP 16–23; TEMP 36.5–37.1; O2SAT 92–100
[2023-10-08 00:50] LABS: Glucose Point of Care 162 mg/dl (65-105)
[2023-10-08] MEDS: dexmedeTOMIDine 400 MCG/100 ML 400 MCG/100 ML BAG 61.76 MCG IV CONT ×10 (01:07→16:00)
[2023-10-08] MEDS: IPRATROPIUM BR 0.02% INH SOLN 0.5 MG/2.5 ML VIAL INHALATION ×4 (02:34→20:12)
[2023-10-08] MEDS: ALBUTEROL SULFATE NEB 2.5 MG/3 ML INH INHALATION ×4 (02:34→20:11)
[2023-10-08 05:12] LABS: Alveolar/Arterial O2 Gradient 119.6 mmHg; Carboxyhemoglobin 0.1 % THb (0-2.0); Fractional Inspired Oxygen 35 %; HCO3 ABG 32.9 mEq/l (22.0-26.0); Methemoglobin ABG 0.3 %THb (0-1.5); Oxygen Content ABG 17.1 %vol (16.0-22.0); Oxygen Saturation ABG 95.7 % (95.0-100.0); Oxyhemoglobin 94.1 % THb (90.0-100.0); PO2 ABG 75.3 mmHg (80.0-100.0); PO2 FiO2 Ratio Arterial Blood 2.15 %; Reduced Hemoglobin 5.5 %THb (0-5.0); Total Hemoglobin 12.9 g/dL (12.0-18.0); pH ABG 7.463 (7.350-7.450)
[2023-10-08 05:13] LABS: Arterial Blood Gas PEEP 5 cmH2O; Arterial Blood Gas Vent Mode ASV; Device VENTILATOR; Modified Allen's Test Pass; Site Drawn LEFT RADIAL
[2023-10-08 06:53] LABS: Hematocrit 40.4 % (37.0-47.0); Hemoglobin 11.9 g/dL (12.0-15.0); Mean Corpuscular HGB Conc 29.5 g/dl (32-36); Mean Corpuscular Hemoglobin 27.1 pg (26-34); Mean Platelet Volume 10.9 fl (7.4-10.4); Platelet Count Result 220 k/mm3 (150-375); Red Blood Count 4.39 M/mm3 (4.2-5.4); Red Cell Distribution Width 18.5 % (11.5-14.5); White Blood Count 8.4 K/mm3 (4.5-10.0)
[2023-10-08] MEDS: CENTRAL LINE FLUSH 10 ML IV PUSH ×3 (06:54→22:00)
[2023-10-08 07:05] LABS: Alanine Aminotransferase 21 U/L (6-35); Albumin Level 3.4 g/dL (3.5-5.1); Alkaline Phosphatase 105 U/L (38-126); Anion Gap 4 mmol/L (8-16); Aspartate Amino Transferase 34 U/L (14-36); Bilirubin,Total 0.6 mg/dL (0.2-1.3); Blood Urea Nitrogen 52 mg/dL (7-17); Calcium 9.4 mg/dL (8.4-10.2); Carbon Dioxide 35 mmol/L (22-30); Chloride 98 mmol/L (98-107); Estimated CRCL calculation 69 ml/min; Estimated Glomerular Filt Rate 55; Glucose 222 mg/dL (65-110); Magnesium 2.1 mg/dL (1.6-2.3); Phosphorus 4.3 mg/dL (2.5-4.5); Potassium 4.2 mmol/L (3.4-5.0); Sodium 137 mmol/L (137-145)
[2023-10-08] MEDS: INSULIN ASPART (*BKC) 100 UNITS/ML SUB-Q ×3 (07:24→17:18)
[2023-10-08] MEDS: methylPREDNISolone SOD SUCC 125 MG VIAL IV PUSH (08:50)
[2023-10-08] MEDS: APIXABAN 2.5 MG TABLET PO ×2 (08:53→21:59)
[2023-10-08] MEDS: PANTOPRAZOLE SODIUM IV 40 MG VIAL IV PUSH (08:53)
[2023-10-08] MEDS: FUROSEMIDE INJ 40 MG/4 ML VIAL IV PUSH (08:53)
[2023-10-08] MEDS: polyethylene glycoL 3350 17 GM POWD.PACK PO (08:53)
[2023-10-08] MEDS: busPIRone HCL 2.5 MG TABLET PO ×2 (08:54→21:59)
[2023-10-08] MEDS: busPIRone HCL 5 MG TABLET PO ×2 (08:54→21:59)
[2023-10-08] MEDS: SERTRALINE HCL 50 MG TABLET 100 MG PO (08:54)
[2023-10-08] MEDS: TOLNAFTATE 1% POWDER 45 GM BTL 1 APPLIC TOPICAL ×2 (08:55→22:00)
[2023-10-08] MEDS: amLODIPine BESYLATE 5 MG TABLET PO (08:55)
--- NOTE | 2023-10-08 09:05 | WPDINTPN ---
Progress Note: A&P Assessment and Plan (1) Acute on chronic respiratory failure with hypoxia and hypercapnia: Code(s): J96.21 - Acute and chronic respiratory failure with hypoxia; J96.22 - Acute and chronic respiratory failure with hypercapnia Status: Acute Assessment and Plan: Patient has multifactorial chronic respiratory failure and is on oxygen at home. Her respiratory failure secondary to diastolic dysfunction, pulmonary hypertension obesity hypoventilation, COPD, congestive heart failure, RSV infection CT chest suggest atelectasis with some areas of infiltrate and large hiatal hernia 09/30 I placed patient on PSV trial this morning but patient quickly failed due to increased respiratory rate heart rate drop in saturation 10/02 patient placed again on PSV trial twice after holding sedation. On 1st attempt patient went into apnea ventilation. Patient was given more time off sedation and PSV was re-attempted and patient's rate was low along with low tidal volumes and she desaturated hence weaning trial was aborted 10/03 ABG and chest x-ray reviewed sedation holiday and evaluation to PSV again today. Decrease rate to 20 and tidal volume to 400 2/5 on holding sedation patient became tachypneic asynchronous with the ventilator and desaturated. Increased work of breathing. PSV trial was not attempted -completed a course of ceftriaxone and doxycycline. Status post vancomycin since blood cultures grew contaminant -continue Bronchodilators -continue to hold steroids as patient does not appear to have any significant wheezing -continue diuretics -stop isolation since has been > 1 week for RSV -09/29: Blood cultures 1 of 2 is growing Staph hominis which is likely a contaminant. Vancomycin discontinued -10/01: Blood cultures 1/2 bottles growing Staph epidermidis, likely contaminant as patient is afebrile, normal white count -10/05: Sputum cultures: No organisms, many white cells seen 10/06: Remains only on Precedex infusion place patient on pressure support 08/06, did not tolerate as she was tachypneic with low tidal volumes. So switched her to ASV mode of ventilation which she is tolerating better. 10/07: Patient tolerated pressure support ventilation all day, ASV online. Adequate urine output with diuresis 10/08: Have placed patient on pressure support ventilation, will evaluate for extubation. Given 1 dose of Solu-Medrol for wheezing (2) Obesity hypoventilation syndrome: Code(s): E66.2 - Morbid (severe) obesity with alveolar hypoventilation Status: Acute Assessment and Plan: See above (3) Chronic obstructive pulmonary disease: Code(s): J44.9 - Chronic obstructive pulmonary disease, unspecified Status: Acute Assessment and Plan: See above (4) Congestive heart failure: Code(s): I50.9 - Heart failure, unspecified Status: Acute Assessment and Plan: Most recent echocardiogram 07/28/2023 Summary ? 1. Left ventricular chamber dimension is normal. ? 2. Left ventricular systolic function is normal, estimated at 60-65%. ? 3. The left ventricular diastolic function is grade I diastolic dysfunction. ? 4. Right ventricular chamber dimension is mildly enlarged. ? 5. Right ventricular systolic function is normal. ? 6. Left atrial chamber dimension is moderately enlarged. ? 7. Right atrial chamber dimension is mildly enlarged. ? 8. There is moderate tricuspid valve regurgitation. ? 9. Estimated pulmonary arterial systolic pressure is 63 mmHg. (5) Acute UTI: Code(s): N39.0 - Urinary tract infection, site not specified Status: Acute Assessment and Plan: UA suggestive of UTI 09/29/2023 urine cultures negative Lactic acid level normal Status post course of ceftriaxone (6) Insulin dependent type 2 diabetes mellitus: Code(s): E11.9 - Type 2 diabetes mellitus without complications; Z79.4 - superintendent marine oil terminal (current) use of insulin Status: Acute Assessment an
[2023-10-08] MEDS: INSULIN GLARGINE (*BKC) 100 UNITS/ML 20 UNITS SUB-Q ×2 (09:40→21:59)
[2023-10-08] MEDS: MINERAL OIL/WHITE PETROLATUM OINTMENT 1 APPLIC EACH EYE ×2 (09:40→22:00)
[2023-10-08] MEDS: hydrALAZINE HCL 20 MG/ML VIAL IV PUSH (10:20)
[2023-10-08 11:55] LABS: Glucose Point of Care 235 mg/dl (65-105)
[2023-10-08 11:57] LABS: Alveolar/Arterial O2 Gradient 124.9 mmHg; Base Excess ABG 3.1 mEq/l (+/-2.0); Fractional Inspired Oxygen 35 %; HCO3 ABG 27.6 mEq/l (22.0-26.0); Oxygen Saturation ABG 95.6 % (95.0-100.0); Oxyhemoglobin 93.8 % THb (90.0-100.0); PCO2 ABG 41.8 mmHg (35.0-45.0); PO2 ABG 76.1 mmHg (80.0-100.0); PO2 FiO2 Ratio Arterial Blood 2.17 %; Total Hemoglobin 13.6 g/dL (12.0-18.0); pH ABG 7.438 (7.350-7.450)
[2023-10-08 11:58] LABS: Device VENTILATOR; Modified Allen's Test Pass; Site Drawn LEFT RADIAL
[2023-10-08 11:59] LABS: Arterial Blood Gas PEEP 5 cmH2O; Arterial Blood Gas Vent Mode PRESSURE SUPPORT
[2023-10-08 12:00] LABS: Arterial Blood Gas Pressure Support 8 cmH2O
--- NOTE | 2023-10-08 12:24 | PCNFU ---
Nutrition Follow-Up Complete: Inadequate Oral Intake as related to mechanical ventilation as evidenced by NPO. Goal: Meet estimated nutritional needs Patient is progressing towards goal. We will continue current goal. Pt current nutrition is NPO. Last recorded weight is 162.7 kg, down from 173 kg on admit. Bowel Motility:+BM reported 2/5 Labs Reviewed:Glu 222, BUN 52, GFR 55, Alb 3.4 Meds Noted:Lipitor, Lasix, Lantus, NovoLog. Skin: WNL Additional Notes: Patient is NPO. Extubated today. Recommend diabetic consistent carb diet when medically able. Will monitor weight, labs, skin, tube feeding tolerance, meds every 3 days.
--- NOTE | 2023-10-08 13:39 | PC.NURSE ---
Patient extubated at 1206 without issue. Placed on 4L NC. Patient informed by staff that at this time she will be NPO per MD orders.
--- NOTE | 2023-10-08 13:44 | PC.NURSE ---
Updated son, Ovidio, on patient condition via telephone.
[2023-10-08 17:13] LABS: Glucose Point of Care 245 mg/dl (65-105)
[2023-10-08] MEDS: dexmedeTOMIDine 400 MCG/100 ML 400 MCG/100 ML BAG 57.65 MCG IV CONT (17:26)
[2023-10-08] MEDS: dexmedeTOMIDine 400 MCG/100 ML 400 MCG/100 ML BAG 53.53 MCG IV CONT (19:11)
[2023-10-08] MEDS: dexmedeTOMIDine 400 MCG/100 ML 400 MCG/100 ML BAG 45.29 MCG IV CONT ×2 (21:09→22:21)
[2023-10-08] MEDS: ALPRAZolam (*CRX) 0.25 MG TABLET PO (21:59)
[2023-10-08] MEDS: ATORVASTATIN 40 MG TABLET 80 MG PO (21:59)
[2023-10-09] VITALS (26 sets, daily range): BP systolic 91–184; BP diastolic 42–96; PULSE 62–118; RESP 12–24; TEMP 36.4–37.3; O2SAT 92–100
[2023-10-09 00:24] LABS: Glucose Point of Care 287 mg/dl (65-105)
[2023-10-09] MEDS: INSULIN ASPART (*BKC) 100 UNITS/ML SUB-Q ×2 (00:28→06:27)
[2023-10-09] MEDS: hydrALAZINE HCL 20 MG/ML VIAL IV PUSH (00:29)
[2023-10-09] MEDS: dexmedeTOMIDine 400 MCG/100 ML 400 MCG/100 ML BAG 32.94 MCG IV CONT ×2 (00:53→04:01)
[2023-10-09] MEDS: ALBUTEROL SULFATE NEB 2.5 MG/3 ML INH INHALATION (02:27)
[2023-10-09] MEDS: IPRATROPIUM BR 0.02% INH SOLN 0.5 MG/2.5 ML VIAL INHALATION (02:27)
[2023-10-09 05:20] LABS: Hemoglobin 12.2 g/dL (12.0-15.0); Mean Corpuscular HGB Conc 30.5 g/dl (32-36); Mean Corpuscular Hemoglobin 27.1 pg (26-34); Mean Corpuscular Volume 88.9 fl (80-100); Mean Platelet Volume 11.3 fl (7.4-10.4); Platelet Count Result 237 k/mm3 (150-375); Red Cell Distribution Width 17.5 % (11.5-14.5); White Blood Count 8.1 K/mm3 (4.5-10.0)
[2023-10-09 05:30] LABS: Alanine Aminotransferase 19 U/L (6-35); Albumin Level 3.2 g/dL (3.5-5.1); Alkaline Phosphatase 88 U/L (38-126); Anion Gap 5 mmol/L (8-16); Aspartate Amino Transferase 23 U/L (14-36); Bilirubin,Total 0.8 mg/dL (0.2-1.3); Blood Urea Nitrogen 50 mg/dL (7-17); Calcium 9.3 mg/dL (8.4-10.2); Carbon Dioxide 33 mmol/L (22-30); Chloride 96 mmol/L (98-107); Estimated CRCL calculation 77 ml/min; Estimated Glomerular Filt Rate > 60; Glucose 282 mg/dL (65-110); Magnesium 2.1 mg/dL (1.6-2.3); Potassium 3.8 mmol/L (3.4-5.0); Sodium 134 mmol/L (137-145)
[2023-10-09 05:54] LABS: Base Excess ABG 4.4 mEq/l (+/-2.0); Carboxyhemoglobin 0.7 % THb (0-2.0); Fractional Inspired Oxygen 28 %; HCO3 ABG 30.1 mEq/l (22.0-26.0); Methemoglobin ABG 0.2 %THb (0-1.5); Oxygen Content ABG 17.6 %vol (16.0-22.0); Oxygen Saturation ABG 95.7 % (95.0-100.0); Oxyhemoglobin 94.1 % THb (90.0-100.0); PCO2 ABG 49.1 mmHg (35.0-45.0); PO2 ABG 79.7 mmHg (80.0-100.0); PO2 FiO2 Ratio Arterial Blood 2.85 %; Total Hemoglobin 13.3 g/dL (12.0-18.0); pH ABG 7.405 (7.350-7.450)
[2023-10-09 05:55] LABS: Modified Allen's Test Pass; Site Drawn RIGHT RADIAL
[2023-10-09 05:56] LABS: Device NASAL CANNULA
[2023-10-09] MEDS: CENTRAL LINE FLUSH 10 ML IV PUSH ×3 (07:11→21:23)
[2023-10-09] MEDS: IPRATROPIUM 0.5 MG/ALBUTEROL SULFATE 2.5 MG AMPUL.NEB 3 ML INHALATION ×3 (07:27→20:54)
--- NOTE | 2023-10-09 09:42 | WPDINTPN ---
Progress Note: A&P Assessment and Plan (1) Acute on chronic respiratory failure with hypoxia and hypercapnia: Code(s): J96.21 - Acute and chronic respiratory failure with hypoxia; J96.22 - Acute and chronic respiratory failure with hypercapnia Status: Acute Assessment and Plan: Patient has multifactorial chronic respiratory failure and is on oxygen at home. Her respiratory failure secondary to diastolic dysfunction, pulmonary hypertension obesity hypoventilation, COPD, congestive heart failure, RSV infection CT chest suggest atelectasis with some areas of infiltrate and large hiatal hernia - 10/08/2023 extubated -completed a course of ceftriaxone and doxycycline. Status post vancomycin since blood cultures grew contaminant -continue Bronchodilators - -continue diuretics -stop isolation since has been > 1 week for RSV -09/29: Blood cultures 1 of 2 is growing Staph hominis which is likely a contaminant. Vancomycin discontinued -10/01: Blood cultures 1/2 bottles growing Staph epidermidis, likely contaminant as patient is afebrile, normal white count -10/05: Sputum cultures: No organisms, many white cells seen - speech evaluation for bedside swallow - PT/OT to evaluate and follow the patient - patient to wear BiPAP at night (2) Obesity hypoventilation syndrome: Code(s): E66.2 - Morbid (severe) obesity with alveolar hypoventilation Status: Acute Assessment and Plan: See above (3) Chronic obstructive pulmonary disease: Code(s): J44.9 - Chronic obstructive pulmonary disease, unspecified Status: Acute Assessment and Plan: See above (4) Congestive heart failure: Code(s): I50.9 - Heart failure, unspecified Status: Acute Assessment and Plan: Most recent echocardiogram 07/28/2023 Summary ? 1. Left ventricular chamber dimension is normal. ? 2. Left ventricular systolic function is normal, estimated at 60-65%. ? 3. The left ventricular diastolic function is grade I diastolic dysfunction. ? 4. Right ventricular chamber dimension is mildly enlarged. ? 5. Right ventricular systolic function is normal. ? 6. Left atrial chamber dimension is moderately enlarged. ? 7. Right atrial chamber dimension is mildly enlarged. ? 8. There is moderate tricuspid valve regurgitation. ? 9. Estimated pulmonary arterial systolic pressure is 63 mmHg. (5) Acute UTI: Code(s): N39.0 - Urinary tract infection, site not specified Status: Acute Assessment and Plan: UA suggestive of UTI 09/29/2023 urine cultures negative Lactic acid level normal Status post course of ceftriaxone (6) Insulin dependent type 2 diabetes mellitus: Code(s): E11.9 - Type 2 diabetes mellitus without complications; Z79.4 - terminal block assembler (current) use of insulin Status: Acute Assessment and Plan: Patient hyperglycemic, - increase Lantus - continue sliding scale insulin Accu-Cheks (7) Chronic kidney disease: Code(s): N18.9 - Chronic kidney disease, unspecified Status: Acute Assessment and Plan: RESOLVED Patient has chronic kidney disease and acute creatinine appears to be at baseline Monitor urine output electrolytes and creatinine Hold fluids at this time since patient is overall volume overloaded and continue diuretics as above -creatinine remains normal, continue to follow (8) Encephalopathy: Code(s): G93.40 - Encephalopathy, unspecified Status: Acute Assessment and Plan: RESOLVED Likely toxic metabolic encephalopathy. Patient did receive sedation Head CT unchanged Normal ammonia and TSH -patient is awake, follows simple commands and answers questions appropriately (9) Candidiasis, intertrigo: Code(s): B37.2 - Candidiasis of skin and nail Status: Acute Assessment and Plan: Topical anti fungal powder ordered (10) Respiratory syncytial virus: Code(s): B33.8 - Other specified viral diseases Sta
[2023-10-09] MEDS: PANTOPRAZOLE SODIUM IV 40 MG VIAL IV PUSH (09:59)
[2023-10-09] MEDS: INSULIN GLARGINE (*BKC) 100 UNITS/ML 30 UNITS SUB-Q ×2 (09:59→21:24)
[2023-10-09] MEDS: APIXABAN 2.5 MG TABLET PO ×2 (10:00→21:22)
[2023-10-09] MEDS: busPIRone HCL 5 MG TABLET PO ×2 (10:00→21:22)
[2023-10-09] MEDS: busPIRone HCL 2.5 MG TABLET PO ×2 (10:00→21:22)
[2023-10-09] MEDS: SERTRALINE HCL 50 MG TABLET 100 MG PO (10:00)
[2023-10-09] MEDS: TOLNAFTATE 1% POWDER 45 GM BTL 1 APPLIC TOPICAL ×2 (10:07→21:23)
[2023-10-09] MEDS: ALBUMIN HUMAN 25% 25 GM/100 ML 100 ML IVPB ×3 (10:39→23:19)
--- NOTE | 2023-10-09 11:25 | PCSTNOTE ---
Please refer to the Bedside Swallow Evaluation in the EMR. Please note, silent aspiration cannot be ruled out at bedside.
[2023-10-09 12:56] LABS: Glucose Point of Care 191 mg/dl (65-105)
--- NOTE | 2023-10-09 14:32 | PCPTNOTE ---
pt refused PT evaluation today, pt stated she does not feel like doing therapy and to come back tomorrow
--- NOTE | 2023-10-09 14:53 | PM.IMPN ---
Progress Note: A&P Assessment and Plan (1) Acute on chronic respiratory failure with hypoxia and hypercapnia: Code(s): J96.21 - Acute and chronic respiratory failure with hypoxia; J96.22 - Acute and chronic respiratory failure with hypercapnia Status: Acute Assessment and Plan: Patient has multifactorial chronic respiratory failure and is on oxygen at home. Her respiratory failure secondary to diastolic dysfunction, pulmonary hypertension obesity hypoventilation, COPD, congestive heart failure, RSV infection CT chest suggest atelectasis with some areas of infiltrate and large hiatal hernia Intubated 09/29/2023 Extubated 10/08/2023 Completed course of ceftriaxone and doxycycline. Also was treated with vancomycin the beginning. Continue bronchodilators -continue diuretics -stop isolation since has been > 1 week for RSV -09/29: Blood cultures 1 of 2 is growing Staph hominis which is likely a contaminant. Vancomycin discontinued -10/01: Blood cultures 1/2 bottles growing Staph epidermidis, likely contaminant as patient is afebrile, normal white count -10/05: Sputum cultures: No organisms, many white cells seen - speech evaluation for bedside swallow - PT/OT to evaluate and follow the patient BiPAP at night (2) Obesity hypoventilation syndrome: Code(s): E66.2 - Morbid (severe) obesity with alveolar hypoventilation Status: Acute Assessment and Plan: See above (3) Chronic obstructive pulmonary disease: Code(s): J44.9 - Chronic obstructive pulmonary disease, unspecified Status: Acute Assessment and Plan: See above (4) Congestive heart failure: Code(s): I50.9 - Heart failure, unspecified Status: Acute Assessment and Plan: Most recent echocardiogram 07/28/2023 Summary ? 1. Left ventricular chamber dimension is normal. ? 2. Left ventricular systolic function is normal, estimated at 60-65%. ? 3. The left ventricular diastolic function is grade I diastolic dysfunction. ? 4. Right ventricular chamber dimension is mildly enlarged. ? 5. Right ventricular systolic function is normal. ? 6. Left atrial chamber dimension is moderately enlarged. ? 7. Right atrial chamber dimension is mildly enlarged. ? 8. There is moderate tricuspid valve regurgitation. ? 9. Estimated pulmonary arterial systolic pressure is 63 mmHg. (5) Acute UTI: Code(s): N39.0 - Urinary tract infection, site not specified Status: Acute Assessment and Plan: UA suggestive of UTI 09/29/2023 urine cultures negative Lactic acid level normal Status post course of ceftriaxone (6) Insulin dependent type 2 diabetes mellitus: Code(s): E11.9 - Type 2 diabetes mellitus without complications; Z79.4 - penitentiary (current) use of insulin Status: Acute Assessment and Plan: Patient hyperglycemic, - increase Lantus - continue sliding scale insulin Accu-Cheks (7) Chronic kidney disease: Code(s): N18.9 - Chronic kidney disease, unspecified Status: Acute Assessment and Plan: RESOLVED Patient has chronic kidney disease and acute creatinine appears to be at baseline Monitor urine output electrolytes and creatinine Hold fluids at this time since patient is overall volume overloaded and continue diuretics as above -creatinine remains normal, continue to follow (8) Encephalopathy: Code(s): G93.40 - Encephalopathy, unspecified Status: Acute Assessment and Plan: RESOLVED Likely toxic metabolic encephalopathy. Patient did receive sedation Head CT unchanged Normal ammonia and TSH -patient is awake, follows simple commands and answers questions appropriately (9) Candidiasis, intertrigo: Code(s): B37.2 - Candidiasis of skin and nail Status: Acute Assessment and Plan: Topical anti fungal powder ordered (10) Respiratory syncytial virus: Code(s): B33.8 - Other specified viral diseases Status: Acute Ass
--- NOTE | 2023-10-09 16:00 | PC.NURSE ---
updated sonHernando via telephone on patient condition.
[2023-10-09 18:19] LABS: Glucose Point of Care 127 mg/dl (65-105)
[2023-10-09 18:19] LABS: Glucose Point of Care 113 mg/dl (65-105)
[2023-10-09 21:22] LABS: Glucose Point of Care 93 mg/dl (65-105)
[2023-10-09] MEDS: MINERAL OIL/WHITE PETROLATUM OINTMENT 1 APPLIC EACH EYE (21:22)
[2023-10-09] MEDS: ATORVASTATIN 40 MG TABLET 80 MG PO (21:22)
[2023-10-09 23:25] LABS: Glucose Point of Care 111 mg/dl (65-105)
[2023-10-10] VITALS (18 sets, daily range): BP systolic 137–175; BP diastolic 58–67; PULSE 97–116; RESP 16–23; TEMP 36.5–36.9; O2SAT 91–97
[2023-10-10] MEDS: IPRATROPIUM 0.5 MG/ALBUTEROL SULFATE 2.5 MG AMPUL.NEB 3 ML INHALATION ×4 (01:51→20:06)
[2023-10-10] MEDS: CENTRAL LINE FLUSH 10 ML IV PUSH ×3 (05:14→22:44)
[2023-10-10 05:31] LABS: Basophils Absolute Auto 0.1 K/mm3 (0.0-0.1); Basophils Percent Auto 0.8 % (0.2-1.2); Eosinophils Absolute Auto 0.1 K/mm3 (0-0.3); Eosinophils Percent Auto 1.4 % (0-4.4); Hemoglobin 11.2 g/dL (12.0-15.0); Immature Granulocyte Absolute 0.04 K/mm3 (0.00-0.031); Immature Granulocyte Percent A 0.4 % (0-0.5); Lymphocytes Absolute Auto 1.06 K/mm3 (0.9-3.2); Lymphocytes Percent Auto 10.2 % (18.3-44.2); Mean Corpuscular HGB Conc 30.3 g/dl (32-36); Mean Corpuscular Hemoglobin 27.7 pg (26-34); Mean Corpuscular Volume 91.4 fl (80-100); Mean Platelet Volume 10.7 fl (7.4-10.4); Monocytes Percent Auto 9.9 % (2.6-8.5); Neutrophils Percent Auto 77.3 % (45.5-73.1); Platelet Count Result 278 k/mm3 (150-375); Red Blood Count 4.05 M/mm3 (4.2-5.4); Red Cell Distribution Width 18.5 % (11.5-14.5); White Blood Count 10.4 K/mm3 (4.5-10.0)
[2023-10-10 05:46] LABS: Anion Gap 9 mmol/L (8-16); Blood Urea Nitrogen 62 mg/dL (7-17); Calcium 9.3 mg/dL (8.4-10.2); Carbon Dioxide 30 mmol/L (22-30); Chloride 99 mmol/L (98-107); Estimated CRCL calculation 44 ml/min; Estimated Glomerular Filt Rate 32; Glucose 87 mg/dL (65-110); Phosphorus 3.6 mg/dL (2.5-4.5); Potassium 3.2 mmol/L (3.4-5.0); Sodium 138 mmol/L (137-145)
[2023-10-10] MEDS: KCL 40 MEQ/WATER 100 ML 100 ML 25 ML IVPB (08:43)
[2023-10-10] MEDS: INSULIN GLARGINE (*BKC) 100 UNITS/ML 30 UNITS SUB-Q ×2 (08:47→21:25)
[2023-10-10] MEDS: FUROSEMIDE INJ 40 MG/4 ML VIAL IV PUSH (08:49)
--- NOTE | 2023-10-10 08:49 | WPDINTPN ---
Progress Note: A&P Assessment and Plan (1) Acute on chronic respiratory failure with hypoxia and hypercapnia: Code(s): J96.21 - Acute and chronic respiratory failure with hypoxia; J96.22 - Acute and chronic respiratory failure with hypercapnia Status: Acute Assessment and Plan: Patient has multifactorial chronic respiratory failure and is on oxygen at home. Her respiratory failure secondary to diastolic dysfunction, pulmonary hypertension obesity hypoventilation, COPD, congestive heart failure, RSV infection CT chest suggest atelectasis with some areas of infiltrate and large hiatal hernia - 10/08/2023 extubated -completed a course of ceftriaxone and doxycycline. Status post vancomycin since blood cultures grew contaminant -continue Bronchodilators - -continue diuretics -stop isolation since has been > 1 week for RSV -09/29: Blood cultures 1 of 2 is growing Staph hominis which is likely a contaminant. Vancomycin discontinued -10/01: Blood cultures 1/2 bottles growing Staph epidermidis, likely contaminant as patient is afebrile, normal white count -10/05: Sputum cultures: No organisms, many white cells seen - 10/09: patient did get a bedside swallow test, was recommended to get a modified barium swallow which will be done today - PT/OT to continue following the patient, up in chair today - encourage incentive spirometer - patient is wearing her BiPAP at night (2) Obesity hypoventilation syndrome: Code(s): E66.2 - Morbid (severe) obesity with alveolar hypoventilation Status: Acute Assessment and Plan: See above (3) Chronic obstructive pulmonary disease: Code(s): J44.9 - Chronic obstructive pulmonary disease, unspecified Status: Acute Assessment and Plan: See above (4) Congestive heart failure: Code(s): I50.9 - Heart failure, unspecified Status: Acute Assessment and Plan: Most recent echocardiogram 07/28/2023 Summary ? 1. Left ventricular chamber dimension is normal. ? 2. Left ventricular systolic function is normal, estimated at 60-65%. ? 3. The left ventricular diastolic function is grade I diastolic dysfunction. ? 4. Right ventricular chamber dimension is mildly enlarged. ? 5. Right ventricular systolic function is normal. ? 6. Left atrial chamber dimension is moderately enlarged. ? 7. Right atrial chamber dimension is mildly enlarged. ? 8. There is moderate tricuspid valve regurgitation. ? 9. Estimated pulmonary arterial systolic pressure is 63 mmHg. (5) Acute UTI: Code(s): N39.0 - Urinary tract infection, site not specified Status: Acute Assessment and Plan: UA suggestive of UTI 09/29/2023 urine cultures negative Lactic acid level normal Status post course of ceftriaxone (6) Insulin dependent type 2 diabetes mellitus: Code(s): E11.9 - Type 2 diabetes mellitus without complications; Z79.4 - shelter (current) use of insulin Status: Acute Assessment and Plan: Patient hyperglycemic, - increase Lantus - continue sliding scale insulin Accu-Cheks (7) Chronic kidney disease: Code(s): N18.9 - Chronic kidney disease, unspecified Status: Acute Assessment and Plan: RESOLVED Patient has chronic kidney disease and acute creatinine appears to be at baseline Monitor urine output electrolytes and creatinine Hold fluids at this time since patient is overall volume overloaded and continue diuretics as above -creatinine increased this morning, could be related to the hypotension that she had on 10/09. patient does have a history of chronic kidney disease, continue to monitor - Blood pressure is much improved this morning - will diurese again today (8) Encephalopathy: Code(s): G93.40 - Encephalopathy, unspecified Status: Acute Assessment and Plan: RESOLVED Likely toxic metabolic encephalopathy. Patient did receive sedation Head CT unchanged Normal ammonia and TSH -patient
[2023-10-10] MEDS: SERTRALINE HCL 50 MG TABLET 100 MG PO (08:50)
[2023-10-10] MEDS: PANTOPRAZOLE SODIUM IV 40 MG VIAL IV PUSH (08:50)
[2023-10-10] MEDS: busPIRone HCL 2.5 MG TABLET PO ×2 (08:51→21:14)
[2023-10-10] MEDS: busPIRone HCL 5 MG TABLET PO ×2 (08:51→21:14)
[2023-10-10] MEDS: TOLNAFTATE 1% POWDER 45 GM BTL 1 APPLIC TOPICAL ×2 (08:51→22:44)
[2023-10-10] MEDS: APIXABAN 2.5 MG TABLET PO ×2 (08:51→21:14)
--- NOTE | 2023-10-10 09:59 | PCSTNOTE ---
Please refer to the Bedside Swallow Evaluation in the EMR. Please note, silent aspiration cannot be ruled out at bedside. MBS scheduled for 10/10/23 unable to be performed second to pt. exceeding chair weight limits and not being able to stand to complete the assessment. Repeat Bedside Swallow Evaluation completed instead.
[2023-10-10 10:27] LABS: Alveolar/Arterial O2 Gradient 93.7 mmHg; Base Excess ABG 3.3 mEq/l (+/-2.0); Fractional Inspired Oxygen 28 %; HCO3 ABG 26.4 mEq/l (22.0-26.0); Oxygen Content ABG 16.7 %vol (16.0-22.0); Oxygen Saturation ABG 94.2 % (95.0-100.0); Oxyhemoglobin 92.7 % THb (90.0-100.0); PCO2 ABG 35.4 mmHg (35.0-45.0); PO2 ABG 64.2 mmHg (80.0-100.0); PO2 FiO2 Ratio Arterial Blood 2.29 %; Total Hemoglobin 12.8 g/dL (12.0-18.0); pH ABG 7.491 (7.350-7.450)
[2023-10-10 10:30] LABS: Device NASAL CANNULA; Modified Allen's Test Pass; Site Drawn LEFT RADIAL
[2023-10-10 12:26] LABS: Glucose Point of Care 104 mg/dl (65-105)
[2023-10-10] MEDS: hydrALAZINE HCL 20 MG/ML VIAL IV PUSH (12:32)
--- NOTE | 2023-10-10 12:51 | P.PNIM_ITS ---
Progress Note: A&P Assessment and Plan (1) Acute on chronic respiratory failure with hypoxia and hypercapnia: Code(s): J96.21 - Acute and chronic respiratory failure with hypoxia; J96.22 - Acute and chronic respiratory failure with hypercapnia Status: Acute Assessment and Plan: Patient has multifactorial chronic respiratory failure and is on oxygen at home. Her respiratory failure secondary to diastolic dysfunction, pulmonary hypertension obesity hypoventilation, COPD, congestive heart failure, RSV infection CT chest suggest atelectasis with some areas of infiltrate and large hiatal hernia Intubated 09/29/2023 Extubated 10/08/2023 Completed course of ceftriaxone and doxycycline. Also was treated with vancomycin the beginning. Continue bronchodilators -continue diuretics -stop isolation since has been > 1 week for RSV -09/29: Blood cultures 1 of 2 is growing Staph hominis which is likely a contaminant. Vancomycin discontinued -10/01: Blood cultures 1/2 bottles growing Staph epidermidis, likely contaminant as patient is afebrile, normal white count -10/05: Sputum cultures: No organisms, many white cells seen - speech evaluation for bedside swallow. Modified scheduled for 10/10/2023 could not be performed due to weight limited repeat bedside performed and started on diet - PT/OT to evaluate and follow the patient BiPAP at night (2) Obesity hypoventilation syndrome: Code(s): E66.2 - Morbid (severe) obesity with alveolar hypoventilation Status: Acute Assessment and Plan: See above (3) Chronic obstructive pulmonary disease: Code(s): J44.9 - Chronic obstructive pulmonary disease, unspecified Status: Acute Assessment and Plan: See above (4) Congestive heart failure: Code(s): I50.9 - Heart failure, unspecified Status: Acute Assessment and Plan: Most recent echocardiogram 07/28/2023 Summary ? 1. Left ventricular chamber dimension is normal. ? 2. Left ventricular systolic function is normal, estimated at 60-65%. ? 3. The left ventricular diastolic function is grade I diastolic dysfunction. ? 4. Right ventricular chamber dimension is mildly enlarged. ? 5. Right ventricular systolic function is normal. ? 6. Left atrial chamber dimension is moderately enlarged. ? 7. Right atrial chamber dimension is mildly enlarged. ? 8. There is moderate tricuspid valve regurgitation. ? 9. Estimated pulmonary arterial systolic pressure is 63 mmHg. 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 Status: Acute Assessment and Plan: Patient hyperglycemic, - increase Lantus - continue sliding scale insulin Accu-Cheks (7) Chronic kidney disease: Code(s): N18.9 - Chronic kidney disease, unspecified Status: Acute Assessment and Plan: RESOLVED Patient has chronic kidney disease and acute creatinine appears to be at baseline Monitor urine output electrolytes and creatinine Hold fluids at this time since patient is overall volume overloaded and continue diuretics as above -creatinine remains normal, continue to follow (8) Encephalopathy: Code(s): G93.40 - Encephalopathy, unspecified Status: Acute Assessment a
[2023-10-10 17:18] LABS: Glucose Point of Care 109 mg/dl (65-105)
[2023-10-10] MEDS: ATORVASTATIN 40 MG TABLET 80 MG PO (21:14)
[2023-10-10] MEDS: ALTEPLASE 2 MG VIAL (CATHFLO) IV PUSH (23:40)
[2023-10-10 23:47] LABS: Glucose Point of Care 113 mg/dl (65-105)
[2023-10-11] VITALS (16 sets, daily range): BP systolic 117–154; BP diastolic 63–95; PULSE 60–108; RESP 17–22; TEMP 36.7–37.1; O2SAT 92–100
[2023-10-11] MEDS: IPRATROPIUM 0.5 MG/ALBUTEROL SULFATE 2.5 MG AMPUL.NEB 3 ML INHALATION ×4 (02:35→20:59)
[2023-10-11 06:19] LABS: Basophils Absolute Auto 0.1 K/mm3 (0.0-0.1); Basophils Percent Auto 1.2 % (0.2-1.2); Eosinophils Absolute Auto 0.2 K/mm3 (0-0.3); Eosinophils Percent Auto 2.4 % (0-4.4); Hematocrit 39.5 % (37.0-47.0); Hemoglobin 11.8 g/dL (12.0-15.0); Immature Granulocyte Absolute 0.05 K/mm3 (0.00-0.031); Immature Granulocyte Percent A 0.6 % (0-0.5); Lymphocytes Absolute Auto 0.93 K/mm3 (0.9-3.2); Lymphocytes Percent Auto 10.8 % (18.3-44.2); Mean Corpuscular HGB Conc 29.9 g/dl (32-36); Mean Corpuscular Hemoglobin 27.3 pg (26-34); Mean Corpuscular Volume 91.2 fl (80-100); Mean Platelet Volume 10.7 fl (7.4-10.4); Monocytes Percent Auto 11.9 % (2.6-8.5); Neutrophils Absolute Auto 6.3 K/mm3 (1.3-6.7); Neutrophils Percent Auto 73.1 % (45.5-73.1); Platelet Count Result 272 k/mm3 (150-375); Red Blood Count 4.33 M/mm3 (4.2-5.4); Red Cell Distribution Width 18.3 % (11.5-14.5); White Blood Count 8.6 K/mm3 (4.5-10.0)
[2023-10-11 06:32] LABS: Alanine Aminotransferase 13 U/L (6-35); Albumin Level 3.3 g/dL (3.5-5.1); Alkaline Phosphatase 67 U/L (38-126); Anion Gap 4 mmol/L (8-16); Aspartate Amino Transferase 26 U/L (14-36); Bilirubin,Total 0.7 mg/dL (0.2-1.3); Blood Urea Nitrogen 54 mg/dL (7-17); Calcium 9.3 mg/dL (8.4-10.2); Carbon Dioxide 34 mmol/L (22-30); Chloride 102 mmol/L (98-107); Estimated CRCL calculation 52 ml/min; Estimated Glomerular Filt Rate 40; Glucose 96 mg/dL (65-110); Magnesium 2.1 mg/dL (1.6-2.3); Potassium 3.5 mmol/L (3.4-5.0); Sodium 140 mmol/L (137-145)
[2023-10-11] MEDS: CENTRAL LINE FLUSH 10 ML IV PUSH ×3 (07:13→20:23)
[2023-10-11 08:03] LABS: Glucose Point of Care 133 mg/dl (65-105)
[2023-10-11] MEDS: APIXABAN 2.5 MG TABLET PO ×2 (09:12→20:16)
[2023-10-11] MEDS: SERTRALINE HCL 50 MG TABLET 100 MG PO (09:12)
[2023-10-11] MEDS: busPIRone HCL 2.5 MG TABLET PO ×2 (09:12→21:22)
[2023-10-11] MEDS: FUROSEMIDE INJ 40 MG/4 ML VIAL IV PUSH (09:13)
[2023-10-11] MEDS: INSULIN GLARGINE (*BKC) 100 UNITS/ML 30 UNITS SUB-Q ×2 (09:13→20:20)
[2023-10-11] MEDS: busPIRone HCL 5 MG TABLET PO ×2 (09:13→20:16)
[2023-10-11] MEDS: TOLNAFTATE 1% POWDER 45 GM BTL 1 APPLIC TOPICAL ×2 (09:13→20:23)
[2023-10-11] MEDS: PANTOPRAZOLE SODIUM IV 40 MG VIAL IV PUSH (09:13)
[2023-10-11] MEDS: INSULIN ASPART (*BKC) 100 UNITS/ML SUB-Q ×2 (12:00→20:18)
[2023-10-11 12:03] LABS: Glucose Point of Care 209 mg/dl (65-105)
--- NOTE | 2023-10-11 13:19 | PM.IMPN ---
Progress Note: A&P Assessment and Plan (1) Acute on chronic respiratory failure with hypoxia and hypercapnia: Code(s): J96.21 - Acute and chronic respiratory failure with hypoxia; J96.22 - Acute and chronic respiratory failure with hypercapnia Status: Acute Assessment and Plan: Patient has multifactorial chronic respiratory failure and is on oxygen at home. Her respiratory failure secondary to diastolic dysfunction, pulmonary hypertension obesity hypoventilation, COPD, congestive heart failure, RSV infection CT chest suggest atelectasis with some areas of infiltrate and large hiatal hernia Intubated 09/29/2023 Extubated 10/08/2023 Completed course of ceftriaxone and doxycycline. Also was treated with vancomycin the beginning. Continue bronchodilators -continue diuretics -stop isolation since has been > 1 week for RSV -09/29: Blood cultures 1 of 2 is growing Staph hominis which is likely a contaminant. Vancomycin discontinued -10/01: Blood cultures 1/2 bottles growing Staph epidermidis, likely contaminant as patient is afebrile, normal white count -10/05: Sputum cultures: No organisms, many white cells seen - speech evaluation for bedside swallow. Modified scheduled for 10/10/2023 could not be performed due to weight limited repeat bedside performed and started on diet - PT/OT to evaluate and follow the patient BiPAP at night which will slowly taper to p.r.n. (2) Obesity hypoventilation syndrome: Code(s): E66.2 - Morbid (severe) obesity with alveolar hypoventilation Status: Acute Assessment and Plan: See above (3) Chronic obstructive pulmonary disease: Code(s): J44.9 - Chronic obstructive pulmonary disease, unspecified Status: Acute Assessment and Plan: See above (4) Congestive heart failure: Code(s): I50.9 - Heart failure, unspecified Status: Acute Assessment and Plan: Most recent echocardiogram 07/28/2023 Summary ? 1. Left ventricular chamber dimension is normal. ? 2. Left ventricular systolic function is normal, estimated at 60-65%. ? 3. The left ventricular diastolic function is grade I diastolic dysfunction. ? 4. Right ventricular chamber dimension is mildly enlarged. ? 5. Right ventricular systolic function is normal. ? 6. Left atrial chamber dimension is moderately enlarged. ? 7. Right atrial chamber dimension is mildly enlarged. ? 8. There is moderate tricuspid valve regurgitation. ? 9. Estimated pulmonary arterial systolic pressure is 63 mmHg. (5) Acute UTI: Code(s): N39.0 - Urinary tract infection, site not specified Status: Acute Assessment and Plan: UA suggestive of UTI 09/29/2023 urine cultures negative Lactic acid level normal Status post course of ceftriaxone (6) Insulin dependent type 2 diabetes mellitus: Code(s): E11.9 - Type 2 diabetes mellitus without complications; Z79.4 - nursing home (current) use of insulin Status: Acute Assessment and Plan: Patient hyperglycemic, - increase Lantus - continue sliding scale insulin Accu-Cheks (7) Chronic kidney disease: Code(s): N18.9 - Chronic kidney disease, unspecified Status: Acute Assessment and Plan: RESOLVED Patient has chronic kidney disease and acute creatinine appears to be at baseline Monitor urine output electrolytes and creatinine Hold fluids at this time since patient is overall volume overloaded and continue diuretics as above -creatinine remains normal, continue to follow (8) Encephalopathy: Code(s): G93.40 - Encephalopathy, unspecified Status: Acute Assessment and Plan: RESOLVED Likely toxic metabolic encephalopathy. Patient did receive sedation Head CT unchanged Normal ammonia and TSH -patient is awake, follows simple commands and answers questions appropriately (9) Candidiasis, intertrigo: Code(s): B37.2 - Candidiasis of skin and nail Status: Acute Assessment and Plan:
--- NOTE | 2023-10-11 16:41 | PC.NURSE ---
This patient, Delilah Ludwig, was transferred to [facility] via bed without issue on 10/11/23 at 1620. Personal belongings sent with patient. Report given to PATTI Zarate. Appropriate documentation sent with patient.
--- NOTE | 2023-10-11 16:43 | PC.NURSE ---
Updated sonInder via telephone about patient transfer.
[2023-10-11 16:47] LABS: Glucose Point of Care 172 mg/dl (65-105)
[2023-10-11] MEDS: ATORVASTATIN 40 MG TABLET 80 MG PO (20:16)
[2023-10-11 21:08] LABS: Glucose Point of Care 236 mg/dl (65-105)
[2023-10-12] VITALS (11 sets, daily range): BP systolic 117–139; BP diastolic 60–75; PULSE 96–111; RESP 18–24; TEMP 36.1–36.9; O2SAT 94–96
[2023-10-12] MEDS: IPRATROPIUM 0.5 MG/ALBUTEROL SULFATE 2.5 MG AMPUL.NEB 3 ML INHALATION ×2 (03:44→08:13)
[2023-10-12] MEDS: CENTRAL LINE FLUSH 10 ML IV PUSH (05:51)
[2023-10-12] MEDS: CENTRAL LINE FLUSH 20 ML IV PUSH (05:51)
[2023-10-12 05:59] LABS: Basophils Absolute Auto 0.1 K/mm3 (0.0-0.1); Basophils Percent Auto 0.8 % (0.2-1.2); Eosinophils Absolute Auto 0.3 K/mm3 (0-0.3); Eosinophils Percent Auto 3.8 % (0-4.4); Hematocrit 40.8 % (37.0-47.0); Hemoglobin 12.1 g/dL (12.0-15.0); Immature Granulocyte Absolute 0.12 K/mm3 (0.00-0.031); Immature Granulocyte Percent A 1.3 % (0-0.5); Lymphocytes Absolute Auto 1.09 K/mm3 (0.9-3.2); Lymphocytes Percent Auto 12.1 % (18.3-44.2); Mean Corpuscular HGB Conc 29.7 g/dl (32-36); Mean Corpuscular Hemoglobin 27.3 pg (26-34); Mean Corpuscular Volume 91.9 fl (80-100); Mean Platelet Volume 10.7 fl (7.4-10.4); Monocytes Absolute Auto 0.9 K/mm3 (0.1-0.6); Monocytes Percent Auto 9.4 % (2.6-8.5); Neutrophils Absolute Auto 6.6 K/mm3 (1.3-6.7); Neutrophils Percent Auto 72.6 % (45.5-73.1); Platelet Count Result 272 k/mm3 (150-375); Red Blood Count 4.44 M/mm3 (4.2-5.4)
[2023-10-12 06:12] LABS: Alanine Aminotransferase 14 U/L (6-35); Albumin Level 3.8 g/dL (3.5-5.1); Alkaline Phosphatase 73 U/L (38-126); Anion Gap 3 mmol/L (8-16); Aspartate Amino Transferase 24 U/L (14-36); Bilirubin,Total 0.7 mg/dL (0.2-1.3); Blood Urea Nitrogen 47 mg/dL (7-17); Calcium 9.2 mg/dL (8.4-10.2); Carbon Dioxide 34 mmol/L (22-30); Chloride 101 mmol/L (98-107); Estimated CRCL calculation 54 ml/min; Estimated Glomerular Filt Rate 44; Glucose 153 mg/dL (65-110); Magnesium 1.8 mg/dL (1.6-2.3); Potassium 3.3 mmol/L (3.4-5.0); Sodium 138 mmol/L (137-145)
[2023-10-12 07:20] LABS: Hypochromasia 1+ (NORMAL); Platelet Estimate Adequate (Adequate)
[2023-10-12 07:21] LABS: Schistocytes None Seen (NORMAL)
[2023-10-12 07:45] LABS: Glucose Point of Care 142 mg/dl (65-105)
[2023-10-12] MEDS: LORATADINE 10 MG TABLET PO (09:11)
[2023-10-12] MEDS: FERROUS SULFATE 325 MG TABLET DR PO (09:11)
[2023-10-12] MEDS: PANTOPRAZOLE 40 MG TABLET PO (09:11)
[2023-10-12] MEDS: SERTRALINE HCL 50 MG TABLET 100 MG PO (09:11)
[2023-10-12] MEDS: busPIRone HCL 5 MG TABLET PO ×2 (09:11→21:27)
[2023-10-12] MEDS: PANTOPRAZOLE SODIUM IV 40 MG VIAL IV PUSH (09:11)
[2023-10-12] MEDS: allopurinoL 100 MG TABLET PO ×2 (09:11→18:36)
[2023-10-12] MEDS: FUROSEMIDE 40 MG TABLET PO (09:11)
[2023-10-12] MEDS: MICONAZOLE NITRATE 2% CREAM 30 GM TUBE 1 APPLIC TOPICAL (09:12)
[2023-10-12] MEDS: busPIRone HCL 2.5 MG TABLET PO ×2 (09:12→21:27)
[2023-10-12] MEDS: APIXABAN 2.5 MG TABLET PO (09:12)
[2023-10-12] MEDS: HYDROCORTISONE 1% 30 GM CREAM 1 APPLIC TOPICAL ×3 (09:13→21:35)
[2023-10-12] MEDS: INSULIN GLARGINE (*BKC) 100 UNITS/ML 30 UNITS SUB-Q ×2 (09:20→21:34)
[2023-10-12] MEDS: TOLNAFTATE 1% POWDER 45 GM BTL 1 APPLIC TOPICAL ×2 (09:25→21:34)
[2023-10-12 11:14] LABS: Glucose Point of Care 188 mg/dl (65-105)
--- NOTE | 2023-10-12 11:23 | PCPTNOTE ---
The patient treatment was not able to be completed due to patient going to CT. Will plan to continue treatment per plan of care.
--- NOTE | 2023-10-12 13:02 | PM.DS ---
DS: Admitting Diagnosis Discharge Date 10/12/2023 Admitting Diagnosis Respiratory failure DS: Discharge Diagnosis Discharge Diagnosis (1) Acute on chronic respiratory failure with hypoxia and hypercapnia: Code(s): J96.21 - Acute and chronic respiratory failure with hypoxia; J96.22 - Acute and chronic respiratory failure with hypercapnia Status: Acute (2) Obesity hypoventilation syndrome: Code(s): E66.2 - Morbid (severe) obesity with alveolar hypoventilation Status: Acute (3) Chronic obstructive pulmonary disease: Code(s): J44.9 - Chronic obstructive pulmonary disease, unspecified Status: Acute (4) Congestive heart failure: Code(s): I50.9 - Heart failure, unspecified Status: Acute (5) Acute UTI: Code(s): N39.0 - Urinary tract infection, site not specified Status: Acute (6) Insulin dependent type 2 diabetes mellitus: Code(s): E11.9 - Type 2 diabetes mellitus without complications; Z79.4 - correction (current) use of insulin Status: Acute (7) Chronic kidney disease: Code(s): N18.9 - Chronic kidney disease, unspecified Status: Acute (8) Encephalopathy: Code(s): G93.40 - Encephalopathy, unspecified Status: Acute (9) Candidiasis, intertrigo: Code(s): B37.2 - Candidiasis of skin and nail Status: Acute (10) Respiratory syncytial virus: Code(s): B33.8 - Other specified viral diseases Status: Acute (11) Electrolyte imbalance: Code(s): E87.8 - Other disorders of electrolyte and fluid balance, not elsewhere classified Status: Acute DS: Summary Hospital Course Hospital Course: Acute on chronic respiratory failure with hypoxia and hypercapnia: Multifactorial patient on oxygen at home and BiPAP at night Respiratory failure secondary to diastolic dysfunction pulmonary hypertension obesity hypoventilation COPD congestive heart failure an RSV infection CT chest suggested atelectasis with some areas of infiltrate and large hiatal hernia See was intubated on presentation on 09/29/2023. Was treated in the ICU eventually got extubated on 10/08/2023. She completed a course of antibiotic treatment with ceftriaxone and doxycycline. Blood culture 08/31 growing Staph hominis and Staph epidermidis likely contaminant was covered with vancomycin Speech evaluation complete and was started on the diet # obesity hypoventilation syndrome # COPD # congestive heart failure Most recent echocardiogram 07/28/2023 with EF 60-65% grade 1 diastolic dysfunction. Bibasilar pulmonary edema on chest x-ray during the hospital course was treated with IV diuretics. Switch to oral Lasix at discharge with increased dose from 20 mg to 40 mg daily # UTI: Completed the treatment with antibiotics during hospital stay # insulin-dependent type 2 diabetes mellitus: Lantus and SSI # CKD stage 3 remained at baseline throughout the hospital stay # encephalopathy: Likely delirium CT head negative normal ammonia and TSH # RSV infection: Supportive treatment provided # code status full code # disposition: senior care resident DC to [facility] Time Spent with Patient Time attestation: Total time spent providing and/or coordinating discharge services: 45 minutes Exam Narrative: General: pleasant female in no acute distress HEENT: Pupils equal and reactive, sclera is clear Lungs/Chest: adequate air entry, decreased at bases, no wheezing Cardiac: RRR. Normal S1 S2. No murmurs Circulation: Pedal pulses are intact and symmetrical. Abdomen: Decreased bowel sounds. Morbidly obese. Soft. NT. ND. Extremities: No clubbing, cyanosis, bilateral pitting edema present : Beal in place Neurologic: patient is awake, alert, follows commands Skin: Fungal infection in skin folds is improving DS: Data Data Completed and Pending Labs on day of discharge: Labs from last 24 hours 10/12/23 10/12/23 10/12/23 11:01 07:42 05:
--- NOTE | 2023-10-12 13:35 | PC.NURSE ---
report given to Viktoriya ARMSTRONG, d/c paper faxed, picc line will be removed prior to d/c
[2023-10-12] MEDS: POTASSIUM CHLORIDE 20 MEQ ER TABLET 40 MEQ PO (13:52)
[2023-10-12] MEDS: NEOMYCIN/POLYMYXIN/BACITRACIN OINTMENT PACKET 1 PACKET (13:53)
--- NOTE | 2023-10-12 14:05 | PC.NURSE ---
picc removed, no issues, catheter intact, no bleeding, held pressure and applied dressing.
--- NOTE | 2023-10-12 14:43 | PCRCNOTE ---
Patient offered 1400 neb tx and refused it at this time. SpO2 was 94% on 2L nasal cannula.
[2023-10-12 16:34] LABS: Glucose Point of Care 168 mg/dl (65-105)
--- NOTE | 2023-10-12 17:05 | PM.IMPN ---
Progress Note: A&P Assessment and Plan (1) Acute on chronic respiratory failure with hypoxia and hypercapnia: Code(s): J96.21 - Acute and chronic respiratory failure with hypoxia; J96.22 - Acute and chronic respiratory failure with hypercapnia Status: Acute Assessment and Plan: Patient has multifactorial chronic respiratory failure and is on oxygen at home. Her respiratory failure secondary to diastolic dysfunction, pulmonary hypertension obesity hypoventilation, COPD, congestive heart failure, RSV infection CT chest suggest atelectasis with some areas of infiltrate and large hiatal hernia Intubated 09/29/2023 Extubated 10/08/2023 Completed course of ceftriaxone and doxycycline. Also was treated with vancomycin the beginning. Continue bronchodilators -continue diuretics -stop isolation since has been > 1 week for RSV -09/29: Blood cultures 1 of 2 is growing Staph hominis which is likely a contaminant. Vancomycin discontinued -10/01: Blood cultures 1/2 bottles growing Staph epidermidis, likely contaminant as patient is afebrile, normal white count -10/05: Sputum cultures: No organisms, many white cells seen - speech evaluation for bedside swallow. Modified scheduled for 10/10/2023 could not be performed due to weight limited repeat bedside performed and started on diet - PT/OT to evaluate and follow the patient BiPAP at night which is chronic (2) Obesity hypoventilation syndrome: Code(s): E66.2 - Morbid (severe) obesity with alveolar hypoventilation Status: Acute Assessment and Plan: See above (3) Chronic obstructive pulmonary disease: Code(s): J44.9 - Chronic obstructive pulmonary disease, unspecified Status: Acute Assessment and Plan: See above (4) Congestive heart failure: Code(s): I50.9 - Heart failure, unspecified Status: Acute Assessment and Plan: Most recent echocardiogram 07/28/2023 Summary ? 1. Left ventricular chamber dimension is normal. ? 2. Left ventricular systolic function is normal, estimated at 60-65%. ? 3. The left ventricular diastolic function is grade I diastolic dysfunction. ? 4. Right ventricular chamber dimension is mildly enlarged. ? 5. Right ventricular systolic function is normal. ? 6. Left atrial chamber dimension is moderately enlarged. ? 7. Right atrial chamber dimension is mildly enlarged. ? 8. There is moderate tricuspid valve regurgitation. ? 9. Estimated pulmonary arterial systolic pressure is 63 mmHg. (5) Acute UTI: Code(s): N39.0 - Urinary tract infection, site not specified Status: Acute Assessment and Plan: UA suggestive of UTI 09/29/2023 urine cultures negative Lactic acid level normal Status post course of ceftriaxone (6) Insulin dependent type 2 diabetes mellitus: Code(s): E11.9 - Type 2 diabetes mellitus without complications; Z79.4 - [facility] (current) use of insulin Status: Acute Assessment and Plan: Patient hyperglycemic, - increase Lantus - continue sliding scale insulin Accu-Cheks (7) Chronic kidney disease: Code(s): N18.9 - Chronic kidney disease, unspecified Status: Acute Assessment and Plan: RESOLVED Patient has chronic kidney disease and acute creatinine appears to be at baseline Monitor urine output electrolytes and creatinine Hold fluids at this time since patient is overall volume overloaded and continue diuretics as above -creatinine remains normal, continue to follow (8) Encephalopathy: Code(s): G93.40 - Encephalopathy, unspecified Status: Acute Assessment and Plan: RESOLVED Likely toxic metabolic encephalopathy. Patient did receive sedation Head CT unchanged Normal ammonia and TSH -patient is awake, follows simple commands and answers questions appropriately Confusion persistent repeat head CT negative for any acute finding (9) Candidiasis, intertrigo: Code(s): B37.2 - Candidiasis of skin and amanda
[2023-10-12] MEDS: MORPHINE SULFATE (*CRX) 2 MG/ML INJ IV PUSH ×2 (17:25→21:42)
--- NOTE | 2023-10-12 18:08 | PC.NURSE ---
Addendum entered by Tessa Weldon RN 10/12/23 19:23: son contacted regarding fall as well as [facility] Original Note: 1655 EMS arrival to take patient back to facility. patient found on the floor, on her back with her left leg twisted backwards with left foot pushed under side table. patient denies hitting head, but c/o pain in knee. maintenance worker house trailer present, charge nurse present, Dr Gruber at bedside, as well as multiple other staff members to pick patient up off the floor with the suyapa lift. vitals BP 138/81, temp 99.1, HR 108, RR 18, O2 99% on 2 LNC, patient put in a regular bed, 2 iv's placed at bedside, [address] of left knee ordered, XR of bilat hips and knees as well. no CT head d/t patient denial of hitting head per MD. patient to CT/ XR at 1745. patient returned at 1815, bed alarm on.
[2023-10-12] MEDS: ONDANSETRON HCL ODT 4 MG TABLET PO (20:24)
[2023-10-12 20:33] LABS: Glucose Point of Care 137 mg/dl (65-105)
[2023-10-12] MEDS: rOPINIRole HCL 1 MG TABLET 4 MG PO (21:27)
[2023-10-12] MEDS: ALPRAZolam (*CRX) 0.25 MG TABLET PO (21:27)
[2023-10-12] MEDS: ATORVASTATIN 40 MG TABLET 80 MG PO (21:27)
[2023-10-12] MEDS: MIRABEGRON 25 MG ER TABLET PO (21:27)
[2023-10-13] VITALS (10 sets, daily range): BP systolic 131–150; BP diastolic 70–82; PULSE 83–109; RESP 18–20; TEMP 36.3–36.7; O2SAT 91–98
--- NOTE | 2023-10-13 01:37 | PCRCNOTE ---
Window of time for administration has passed. See next scheduled administration.
[2023-10-13 07:50] LABS: Glucose Point of Care 156 mg/dl (65-105)
--- NOTE | 2023-10-13 08:10 | PM.CNOR ---
Assessment and Plan Assessment and plan (1) Insulin dependent type 2 diabetes mellitus: Code(s): E11.9 - Type 2 diabetes mellitus without complications; Z79.4 - longterm (current) use of insulin Status: Acute (2) Acute on chronic respiratory failure with hypoxia and hypercapnia: Code(s): J96.21 - Acute and chronic respiratory failure with hypoxia; J96.22 - Acute and chronic respiratory failure with hypercapnia Status: Acute (3) Closed supracondylar fracture of femur: Qualifiers: Encounter type: initial encounter Laterality: left Qualified Code(s): S72.452A - Displaced supracondylar fracture without intracondylar extension of lower end of left femur, initial encounter for closed fracture Code(s): S72.453A - Displaced supracondylar fracture without intracondylar extension of lower end of unspecified femur, initial encounter for closed fracture Status: Acute Assessment and Plan: In patient fell from bed yesterday. Left distal femur fracture on radiographs. Patient is not a surgical candidate due to extensive medical comorbidities including severe respiratory compromise, diabetes, obesity, extremely high risk of infection and postoperative complications. Discussed with patient. Non operative treatment reviewed. Will be difficult but may mobilize as tolerated. Nonweightbearing left leg. Pain control. History of Present Illness HPI Consult date: 10/13/23 Requesting physician: Rene Lrener MD Consult reason: fracture ( Left femur) Chief complaint: resp failure Narrative: 73-year-old woman with extensive medical history and comorbidities, obesity currently inpatient in hospital for respiratory failure requiring intubation. Fall from bed last night. Noted to have left femur fracture. Review of Systems Constitutional: Constitutional: Denies fever(s) Eyes: Eyes: Denies blurry vision ENT: Reports Normal hearing present Cardiovascular: Cardiovascular: Denies chest pain and Denies dyspnea Respiratory: Respiratory: Denies dyspnea and Denies wheezing Gastrointestinal: Gastrointestinal: Denies abdominal pain Genitourinary: Genitourinary: Denies urinary urgency Musculoskeletal: Musculoskeletal: Reports as per HPI and Denies numbness Integumentary/Breasts: Skin/Breast: Denies changing lesions and Denies sores Neurologic: Reports Normal hearing present, Denies behavioral changes, Denies confusion, Denies numbness and Denies convulsions Psychiatric: Psychiatric: Denies behavioral changes, Denies confusion and Denies hallucinations Endocrine: Endocrine: Denies heat intolerance Hematologic/Lymphatic: Hematologic/Lymphatic: Denies easy bleeding Allergic/Immunologic: Allergic/Immunologic: Denies wheezing [facility] Past Medical History Medical History (Updated 10/13/23 @ 08:17 by Markus Arguello MD) Anemia of chronic disease Chronic kidney disease, stage III (moderate) Chronic midline low back pain Chronic obstructive pulmonary disease Chronic respiratory failure with hypoxia, on home oxygen therapy Closed supracondylar fracture of femur Congestive heart failure Most recent echocardiogram showed normal LV systolic function and size with an EF of 60 to 65%, grade 1 diastolic dysfunction, biatrial enlargement, and an estimated PA SP of 63 mmHg. Degenerative joint disease Depression with anxiety With history of panic attacks Diabetic polyneuropathy Diverticulosis Essential (primary) hypertension Hiatal hernia Small hiatal hernia noted on barium swallow performed due to dysphagia and sensation of globus. Of the mid distal esophagus, repeated mid distal esophageal reflux Hyperlipidemia Insulin dependent type 2 diabetes mellitus Iron deficiency anemia Irritable bowel syndrome Lung nodule Lymphedema of both lower extremities Morbid obesity Obesity hypoventilation syndrome Obstructive sleep apnea Osteoarthritis Overactive bladder With chronic urinary incontinence
--- NOTE | 2023-10-13 08:34 | PM.IMPN ---
Progress Note: A&P Assessment and Plan (1) Closed supracondylar fracture of femur: Qualifiers: Encounter type: initial encounter Laterality: left Qualified Code(s): S72.452A - Displaced supracondylar fracture without intracondylar extension of lower end of left femur, initial encounter for closed fracture Code(s): S72.453A - Displaced supracondylar fracture without intracondylar extension of lower end of unspecified femur, initial encounter for closed fracture Status: Acute (2) Obesity hypoventilation syndrome: Code(s): E66.2 - Morbid (severe) obesity with alveolar hypoventilation Status: Acute (3) Insulin dependent type 2 diabetes mellitus: Code(s): E11.9 - Type 2 diabetes mellitus without complications; Z79.4 - nursing home (current) use of insulin Status: Acute (4) Chronic obstructive pulmonary disease: Code(s): J44.9 - Chronic obstructive pulmonary disease, unspecified Status: Acute (5) Acute on chronic respiratory failure with hypoxia and hypercapnia: Code(s): J96.21 - Acute and chronic respiratory failure with hypoxia; J96.22 - Acute and chronic respiratory failure with hypercapnia Status: Acute (6) COPD (chronic obstructive pulmonary disease): Qualifiers: COPD type: COPD with acute lower respiratory infection Qualified Code(s): J44.0 - Chronic obstructive pulmonary disease with (acute) lower respiratory infection Code(s): J44.9 - Chronic obstructive pulmonary disease, unspecified Status: Acute (7) Chronic kidney disease, stage III (moderate): Qualifiers: Chronic kidney disease stage 3 subtype: stage 3b (GFR 30-44) Qualified Code(s): N18.32 - Chronic kidney disease, stage 3b Code(s): N18.30 - Chronic kidney disease, stage 3 unspecified Status: Chronic Plan Closed supracondylar fracture of femur: ?Qualifiers: ?Encounter type:?initial encounter??Laterality:?left? Qualified Code(s):?S72.452A - Displaced supracondylar fracture without intracondylar extension of lower end of left femur, initial encounter for closed fracture ?Code(s): S72.453A - Displaced supracondylar fracture without intracondylar extension of lower end of unspecified femur, initial encounter for closed fracture ?Status:?Acute ?Assessment and Plan: ? In patient fell from bed 10/12 sustained left distal femur fracture on radiographs.? Appreciate orthopedic surgeon's consultation. Per orthopedic surgeon, patient is not a surgical candidate due to extensive medical comorbidities including severe respiratory compromise, diabetes, obesity, extremely high risk of infection and postoperative complications.? ? Non operative treatment reviewed. ? Will be difficult but may mobilize as tolerated.? Nonweightbearing left leg.? Pain control. (1) Acute on chronic respiratory failure with hypoxia and hypercapnia: ?Code(s): J96.21 - Acute and chronic respiratory failure with hypoxia; J96.22 - Acute and chronic respiratory failure with hypercapnia ?Status:?Acute ?Assessment and Plan: Patient has multifactorial chronic respiratory failure and is on oxygen at home. Her respiratory failure secondary to diastolic dysfunction, pulmonary hypertension obesity hypoventilation, COPD, congestive heart failure, RSV infection CT chest suggest atelectasis with some areas of infiltrate and large hiatal hernia Intubated 09/29/2023 Extubated 10/08/2023 Completed course of ceftriaxone and doxycycline.? Also was treated with vancomycin the beginning. Continue bronchodilators -continue diuretics -stop isolation since has been > 1 week for RSV -09/29: Blood cultures 1 of 2 is growing Staph hominis which is likely a contaminant.? Vancomycin discontinued -10/01:? Blood cultures 1/2 bottles growing Staph epidermidis, likely contaminant as patient is afebrile, normal white count -10/05:? Sputum cultures: No organisms, many white cells seen - speec
[2023-10-13] MEDS: polyethylene glycoL 3350 17 GM POWD.PACK PO (09:20)
[2023-10-13] MEDS: INSULIN GLARGINE (*BKC) 100 UNITS/ML 30 UNITS SUB-Q ×2 (09:23→20:38)
[2023-10-13] MEDS: FUROSEMIDE 40 MG TABLET PO (09:26)
[2023-10-13] MEDS: PANTOPRAZOLE 40 MG TABLET PO (09:26)
[2023-10-13] MEDS: SERTRALINE HCL 50 MG TABLET 100 MG PO (09:26)
[2023-10-13] MEDS: busPIRone HCL 5 MG TABLET PO ×2 (09:26→20:37)
[2023-10-13] MEDS: busPIRone HCL 2.5 MG TABLET PO ×2 (09:27→20:36)
[2023-10-13] MEDS: FERROUS SULFATE 325 MG TABLET DR PO (09:27)
[2023-10-13] MEDS: LORATADINE 10 MG TABLET PO (09:27)
[2023-10-13] MEDS: allopurinoL 100 MG TABLET PO ×2 (09:27→16:52)
[2023-10-13] MEDS: TOLNAFTATE 1% POWDER 45 GM BTL 1 APPLIC TOPICAL ×2 (09:29→20:37)
[2023-10-13] MEDS: MICONAZOLE NITRATE 2% CREAM 30 GM TUBE 1 APPLIC TOPICAL ×2 (11:07→16:52)
[2023-10-13 11:36] LABS: Glucose Point of Care 200 mg/dl (65-105)
--- NOTE | 2023-10-13 13:22 | PCOTNOTE ---
Pt. is dependent in functional mobility at baseline, and receives assist for ADLs from senior living staff. Acute injury does not limit pt. functional mobility and capacity compared to baseline function and required assist, if pain is managed. Cancelation of evaluation at this time.
[2023-10-13] MEDS: HYDROCORTISONE 1% 30 GM CREAM 1 APPLIC TOPICAL ×2 (13:40→20:37)
[2023-10-13] MEDS: ACETAMINOPHEN ELIXIR 325 MG/10.15 ML UDC 650 MG PO (13:43)
[2023-10-13 14:21] LABS: Basophils Absolute Auto 0.1 K/mm3 (0.0-0.1); Basophils Percent Auto 0.8 % (0.2-1.2); Eosinophils Absolute Auto 0.4 K/mm3 (0-0.3); Eosinophils Percent Auto 3.4 % (0-4.4); Hematocrit 35.7 % (37.0-47.0); Hemoglobin 10.7 g/dL (12.0-15.0); Immature Granulocyte Absolute 0.15 K/mm3 (0.00-0.031); Immature Granulocyte Percent A 1.2 % (0-0.5); Lymphocytes Percent Auto 8.3 % (18.3-44.2); Mean Corpuscular Hemoglobin 27.6 pg (26-34); Mean Platelet Volume 10.9 fl (7.4-10.4); Monocytes Percent Auto 8.3 % (2.6-8.5); Neutrophils Absolute Auto 9.5 K/mm3 (1.3-6.7); Platelet Count Result 314 k/mm3 (150-375); Red Blood Count 3.88 M/mm3 (4.2-5.4); Red Cell Distribution Width 17.8 % (11.5-14.5); White Blood Count 12.1 K/mm3 (4.5-10.0)
[2023-10-13 14:33] LABS: Anion Gap 6 mmol/L (8-16); Blood Urea Nitrogen 48 mg/dL (7-17); Calcium 9.1 mg/dL (8.4-10.2); Carbon Dioxide 32 mmol/L (22-30); Chloride 97 mmol/L (98-107); Estimated CRCL calculation 47 ml/min; Estimated Glomerular Filt Rate 37; Glucose 176 mg/dL (65-110); Potassium 4.1 mmol/L (3.4-5.0); Sodium 135 mmol/L (137-145)
[2023-10-13] MEDS: IPRATROPIUM 0.5 MG/ALBUTEROL SULFATE 2.5 MG AMPUL.NEB 3 ML INHALATION ×2 (15:13→20:42)
[2023-10-13 16:42] LABS: Glucose Point of Care 159 mg/dl (65-105)
[2023-10-13] MEDS: MORPHINE SULFATE (*CRX) 2 MG/ML INJ IV PUSH (17:59)
[2023-10-13] MEDS: rOPINIRole HCL 1 MG TABLET 4 MG PO (20:36)
[2023-10-13] MEDS: MIRABEGRON 25 MG ER TABLET PO (20:36)
[2023-10-13] MEDS: ALPRAZolam (*CRX) 0.25 MG TABLET PO (20:36)
[2023-10-13] MEDS: ATORVASTATIN 40 MG TABLET 80 MG PO (20:36)
[2023-10-13 21:54] LABS: Glucose Point of Care 130 mg/dl (65-105)
[2023-10-14] VITALS (12 sets, daily range): BP systolic 128–146; BP diastolic 45–73; PULSE 95–102; RESP 18; TEMP 36.2–36.4; O2SAT 93–100
[2023-10-14] MEDS: IPRATROPIUM 0.5 MG/ALBUTEROL SULFATE 2.5 MG AMPUL.NEB 3 ML INHALATION ×4 (02:04→20:32)
[2023-10-14 07:46] LABS: Glucose Point of Care 119 mg/dl (65-105)
--- NOTE | 2023-10-14 08:38 | PCPTNOTE ---
Pt. is dependent in functional mobility at baseline, and receives assist for ADLs from [facility] staff. Acute injury does not limit pt. functional mobility and capacity compared to baseline function and required assist, if pain is managed. Cancelation of evaluation at this time. Hospitalist made aware of this per OT.
[2023-10-14 08:55] LABS: Basophils Absolute Auto 0.1 K/mm3 (0.0-0.1); Basophils Percent Auto 0.6 % (0.2-1.2); Eosinophils Absolute Auto 0.5 K/mm3 (0-0.3); Eosinophils Percent Auto 4.6 % (0-4.4); Hematocrit 35.5 % (37.0-47.0); Hemoglobin 10.5 g/dL (12.0-15.0); Immature Granulocyte Absolute 0.23 K/mm3 (0.00-0.031); Lymphocytes Absolute Auto 0.86 K/mm3 (0.9-3.2); Lymphocytes Percent Auto 7.4 % (18.3-44.2); Mean Corpuscular HGB Conc 29.6 g/dl (32-36); Mean Corpuscular Volume 91.3 fl (80-100); Mean Platelet Volume 10.4 fl (7.4-10.4); Monocytes Absolute Auto 0.9 K/mm3 (0.1-0.6); Monocytes Percent Auto 7.3 % (2.6-8.5); Neutrophils Absolute Auto 9.1 K/mm3 (1.3-6.7); Neutrophils Percent Auto 78.1 % (45.5-73.1); Platelet Count Result 244 k/mm3 (150-375); Red Blood Count 3.89 M/mm3 (4.2-5.4); Red Cell Distribution Width 17.2 % (11.5-14.5); White Blood Count 11.6 K/mm3 (4.5-10.0)
[2023-10-14 09:07] LABS: Anion Gap 5 mmol/L (8-16); Blood Urea Nitrogen 43 mg/dL (7-17); Carbon Dioxide 33 mmol/L (22-30); Chloride 97 mmol/L (98-107); Estimated CRCL calculation 51 ml/min; Estimated Glomerular Filt Rate 40; Glucose 129 mg/dL (65-110); Potassium 4.1 mmol/L (3.4-5.0); Sodium 135 mmol/L (137-145)
--- NOTE | 2023-10-14 09:15 | PM.IMPN ---
Progress Note: A&P Assessment and Plan (1) Closed supracondylar fracture of femur: Qualifiers: Encounter type: initial encounter Laterality: left Qualified Code(s): S72.452A - Displaced supracondylar fracture without intracondylar extension of lower end of left femur, initial encounter for closed fracture Code(s): S72.453A - Displaced supracondylar fracture without intracondylar extension of lower end of unspecified femur, initial encounter for closed fracture Status: Acute (2) Obesity hypoventilation syndrome: Code(s): E66.2 - Morbid (severe) obesity with alveolar hypoventilation Status: Acute (3) Insulin dependent type 2 diabetes mellitus: Code(s): E11.9 - Type 2 diabetes mellitus without complications; Z79.4 - manager long term care (current) use of insulin Status: Acute (4) Chronic obstructive pulmonary disease: Code(s): J44.9 - Chronic obstructive pulmonary disease, unspecified Status: Acute (5) Acute on chronic respiratory failure with hypoxia and hypercapnia: Code(s): J96.21 - Acute and chronic respiratory failure with hypoxia; J96.22 - Acute and chronic respiratory failure with hypercapnia Status: Acute (6) Chronic kidney disease, stage III (moderate): Qualifiers: Chronic kidney disease stage 3 subtype: stage 3b (GFR 30-44) Qualified Code(s): N18.32 - Chronic kidney disease, stage 3b Code(s): N18.30 - Chronic kidney disease, stage 3 unspecified Status: Chronic Plan Closed supracondylar fracture of femur: ?Qualifiers: ?Encounter type:?initial encounter??Laterality:?left? Qualified Code(s):?S72.452A - Displaced supracondylar fracture without intracondylar extension of lower end of left femur, initial encounter for closed fracture ?Code(s): S72.453A - Displaced supracondylar fracture without intracondylar extension of lower end of unspecified femur, initial encounter for closed fracture ?Status:?Acute ?Assessment and Plan: ? In patient fell from bed 10/12 sustained left distal femur fracture on radiographs.? Appreciate orthopedic surgeon's consultation. Per orthopedic surgeon, patient is not a surgical candidate due to extensive medical comorbidities including severe respiratory compromise, diabetes, obesity, extremely high risk of infection and postoperative complications.? ? Non operative treatment reviewed. ? Will be difficult but may mobilize as tolerated.? Nonweightbearing left leg.? Pain control. Patient will be discharged to custodial, wound care nurse is working on placement (1) Acute on chronic respiratory failure with hypoxia and hypercapnia: ?Code(s): J96.21 - Acute and chronic respiratory failure with hypoxia; J96.22 - Acute and chronic respiratory failure with hypercapnia ?Status:?Acute ?Assessment and Plan: Patient has multifactorial chronic respiratory failure and is on oxygen at home. Her respiratory failure secondary to diastolic dysfunction, pulmonary hypertension obesity hypoventilation, COPD, congestive heart failure, RSV infection CT chest suggest atelectasis with some areas of infiltrate and large hiatal hernia Intubated 09/29/2023 Extubated 10/08/2023 Completed course of ceftriaxone and doxycycline.? Also was treated with vancomycin the beginning. Continue bronchodilators -continue diuretics -stop isolation since has been > 1 week for RSV -09/29: Blood cultures 1 of 2 is growing Staph hominis which is likely a contaminant.? Vancomycin discontinued -10/01:? Blood cultures 1/2 bottles growing Staph epidermidis, likely contaminant as patient is afebrile, normal white count -10/05:? Sputum cultures: No organisms, many white cells seen - speech evaluation for bedside swallow.? Modified scheduled for 10/10/2023 could not be performed due to weight limited repeat bedside performed and started on diet - PT/OT to? evaluate and follow the patient BiPAP at night which is chronic (2) Obesity h
[2023-10-14 09:16] LABS: Platelet Estimate Adequate (Adequate); Schistocytes None Seen (NORMAL)
[2023-10-14] MEDS: FUROSEMIDE 40 MG TABLET PO (09:28)
[2023-10-14] MEDS: MICONAZOLE NITRATE 2% CREAM 30 GM TUBE 1 APPLIC TOPICAL ×2 (09:28→17:01)
[2023-10-14] MEDS: TOLNAFTATE 1% POWDER 45 GM BTL 1 APPLIC TOPICAL ×2 (09:28→20:09)
[2023-10-14] MEDS: SERTRALINE HCL 50 MG TABLET 100 MG PO (09:29)
[2023-10-14] MEDS: LORATADINE 10 MG TABLET PO (09:29)
[2023-10-14] MEDS: FERROUS SULFATE 325 MG TABLET DR PO (09:29)
[2023-10-14] MEDS: busPIRone HCL 5 MG TABLET PO (09:29)
[2023-10-14] MEDS: busPIRone HCL 2.5 MG TABLET PO (09:30)
[2023-10-14] MEDS: allopurinoL 100 MG TABLET PO ×2 (09:30→17:01)
[2023-10-14] MEDS: polyethylene glycoL 3350 17 GM POWD.PACK PO (09:30)
[2023-10-14] MEDS: PANTOPRAZOLE 40 MG TABLET PO (09:30)
[2023-10-14] MEDS: INSULIN GLARGINE (*BKC) 100 UNITS/ML 30 UNITS SUB-Q ×2 (09:31→20:11)
[2023-10-14] MEDS: ACETAMINOPHEN ELIXIR 325 MG/10.15 ML UDC 650 MG PO (09:41)
--- NOTE | 2023-10-14 11:11 | PCNFU ---
Nutrition Follow-Up Complete: Inadequate Oral Intake as related to mechanical ventilation as evidenced by NPO. - Resolved New nutrition diagnosis: Inadequate oral intake related to loss of appetite as evidenced by poor meal intake 0-5% Meet estimated nutritional needs _ Not meet goal. Continue with same goal Goal: Pt current nutrition is Minced & moist level 5, diabetic consistent carbs. . Nutrition recommendation: oral nutrition supplements: Ensure Compact TID for additional 220 kcal and 9 g protein each Last recorded weight is 146.4 kg. Bowel Motility: Last BM 10/10/23. Labs Reviewed: Hgb 10.5, Hct 35.5, Na 135, BUN 43, Cre 1.3, Glu 129 Meds Noted:Lasix, novolog, lantus, protonix, eliquis, xanax Skin: No pressure Additional Notes: Pt said she has no desire to eat this morning. Fell our of bed and broke femur. Sleeping when seen. Will monitor weight, labs, skin, tube feeding tolerance, meds every Wednesday and Wednesday.
[2023-10-14 11:27] LABS: Glucose Point of Care 185 mg/dl (65-105)
--- NOTE | 2023-10-14 13:09 | PM.PNORT ---
Progress Note: A&P Assessment and Plan (1) Closed supracondylar fracture of femur: Qualifiers: Encounter type: initial encounter Laterality: left Qualified Code(s): S72.452A - Displaced supracondylar fracture without intracondylar extension of lower end of left femur, initial encounter for closed fracture Code(s): S72.453A - Displaced supracondylar fracture without intracondylar extension of lower end of unspecified femur, initial encounter for closed fracture Status: Acute Assessment and Plan: Inpatient fell from bed on 10/12. Left distal femur fracture on radiographs. Patient is not a surgical candidate due to extensive medical comorbidities including severe respiratory compromise, diabetes, obesity, extremely high risk of infection and postoperative complications. Discussed with patient. Non operative treatment reviewed. Will be difficult but may mobilize as tolerated. Patient utilizes a suyapa lift for transfers at baseline. Continue nonweightbearing left leg. Pain control. No further recommendations at this time. (2) Insulin dependent type 2 diabetes mellitus: Code(s): E11.9 - Type 2 diabetes mellitus without complications; Z79.4 - detention (current) use of insulin Status: Acute (3) Acute on chronic respiratory failure with hypoxia and hypercapnia: Code(s): J96.21 - Acute and chronic respiratory failure with hypoxia; J96.22 - Acute and chronic respiratory failure with hypercapnia Status: Acute Plan Reviewed history, exam, radiographs and current labs with attending MD and covering surgeon, Dr. Arguello, who agrees with current plan as indicated above. No further recommendations from Dr. Arguello at this time. Subjective Subjective Date/Time Seen: 10/14/23 9:09 Interval history: Patient awake/alert. Eating breakfast at time of exam. Complains of some pain in the LLE. No other concerns. Review of Systems Review of Systems: All systems reviewed & are unremarkable except as noted in HPI and below Exam Const: General: no acute distress, alert, awake and obese; No healthy appearing or confusion Orientation/consciousness: No confusion HENMT: Head: normal to inspection, normocephalic and atraumatic Eyes: Conjunctivae: conjunctivae normal Sclera: sclerae normal Neck: Neck: supple and nontender Chest: Chest palpation & inspection: normal inspection of the chest Cardio: Rate: regular rate Rhythm: regular rhythm : General: Yes deferred Neuro: General: No confusion Extrem: General: capillary refill normal Right upper extremity: normal to inspection Left upper extremity: normal to inspection Right lower extremity: normal to inspection, hip/thigh Details: normal to inspection and normal ROM; no tenderness and no swelling, knee Details: no tenderness and no swelling, ankle Details: normal ROM (Able to flex and extend the ankle) and foot Details: vascular exam Details: dorsalis pedis pulse present and normal capillary refill, tendon exam (Moves all toes) and motor-sensory exam Details: light-touch normal Location: in all toes Left lower extremity: hip/thigh Details: abnormal ROM Details: pain with passive ROM (Full motion deferred secondary to fracture) Details: with flexion, with internal rotation and with external rotation; no tenderness and no swelling, knee Details: tenderness Location: of the distal upper leg Details: laterally and anteriorly and abnormal ROM Details: pain with passive ROM ( Distal femur fracture), ankle (no calf tenderness) Details: normal ROM (Able to flex/ extend ankle) and foot Details: toes with normal ROM (Moves all toes), vascular exam Details: dorsalis pedis pulse present and normal capillary refill and motor-sensory exam light-touch normal in all toes; no tenderness Psych: Affect: normal affect Objective Data Vital Signs Vital Signs: Vital Signs - 24 hr 10/13/23 14:25 10/13/23 14:00 10/13/23 15:10 Temperature 36.3 C L Pulse Ra
[2023-10-14 16:43] LABS: Glucose Point of Care 152 mg/dl (65-105)
[2023-10-14] MEDS: rOPINIRole HCL 1 MG TABLET 4 MG PO (20:09)
[2023-10-14] MEDS: ATORVASTATIN 40 MG TABLET 80 MG PO (20:09)
[2023-10-14] MEDS: MIRABEGRON 25 MG ER TABLET PO (20:09)
[2023-10-14] MEDS: ALPRAZolam (*CRX) 0.25 MG TABLET PO (20:09)
[2023-10-14 20:54] LABS: Glucose Point of Care 204 mg/dl (65-105)
[2023-10-14 20:54] LABS: Glucose Point of Care 190 mg/dl (65-105)
[2023-10-15] VITALS (13 sets, daily range): BP systolic 118–131; BP diastolic 52–73; PULSE 73–110; RESP 18–20; TEMP 36.6–36.7; O2SAT 92–99
[2023-10-15] MEDS: IPRATROPIUM 0.5 MG/ALBUTEROL SULFATE 2.5 MG AMPUL.NEB 3 ML INHALATION ×4 (02:30→21:16)
[2023-10-15 07:24] LABS: Basophils Absolute Auto 0.1 K/mm3 (0.0-0.1); Basophils Percent Auto 0.5 % (0.2-1.2); Eosinophils Absolute Auto 0.5 K/mm3 (0-0.3); Eosinophils Percent Auto 5.6 % (0-4.4); Hematocrit 32.1 % (37.0-47.0); Hemoglobin 9.7 g/dL (12.0-15.0); Immature Granulocyte Absolute 0.17 K/mm3 (0.00-0.031); Immature Granulocyte Percent A 1.8 % (0-0.5); Lymphocytes Absolute Auto 0.72 K/mm3 (0.9-3.2); Lymphocytes Percent Auto 7.5 % (18.3-44.2); Mean Corpuscular HGB Conc 30.2 g/dl (32-36); Mean Corpuscular Hemoglobin 27.5 pg (26-34); Mean Corpuscular Volume 90.9 fl (80-100); Mean Platelet Volume 10.2 fl (7.4-10.4); Monocytes Absolute Auto 0.8 K/mm3 (0.1-0.6); Monocytes Percent Auto 8.1 % (2.6-8.5); Neutrophils Absolute Auto 7.3 K/mm3 (1.3-6.7); Neutrophils Percent Auto 76.5 % (45.5-73.1); Platelet Count Result 219 k/mm3 (150-375); Red Blood Count 3.53 M/mm3 (4.2-5.4); Red Cell Distribution Width 17.2 % (11.5-14.5); White Blood Count 9.6 K/mm3 (4.5-10.0)
[2023-10-15 07:47] LABS: Anion Gap 0 mmol/L (8-16); Blood Urea Nitrogen 38 mg/dL (7-17); Carbon Dioxide 38 mmol/L (22-30); Chloride 96 mmol/L (98-107); Estimated CRCL calculation 56 ml/min; Estimated Glomerular Filt Rate 44; Glucose 147 mg/dL (65-110); Sodium 134 mmol/L (137-145)
[2023-10-15 07:47] LABS: Glucose Point of Care 139 mg/dl (65-105)
[2023-10-15] MEDS: PANTOPRAZOLE 40 MG TABLET PO (09:20)
[2023-10-15] MEDS: allopurinoL 100 MG TABLET PO ×2 (09:20→18:11)
[2023-10-15] MEDS: FUROSEMIDE 40 MG TABLET PO (09:20)
[2023-10-15] MEDS: LORATADINE 10 MG TABLET PO (09:20)
[2023-10-15] MEDS: MICONAZOLE NITRATE 2% CREAM 30 GM TUBE 1 APPLIC TOPICAL ×2 (09:20→18:11)
[2023-10-15] MEDS: TOLNAFTATE 1% POWDER 45 GM BTL 1 APPLIC TOPICAL ×2 (09:20→21:11)
[2023-10-15] MEDS: FERROUS SULFATE 325 MG TABLET DR PO (09:20)
[2023-10-15] MEDS: SERTRALINE HCL 50 MG TABLET 100 MG PO (09:20)
[2023-10-15] MEDS: polyethylene glycoL 3350 17 GM POWD.PACK PO (09:20)
[2023-10-15] MEDS: INSULIN GLARGINE (*BKC) 100 UNITS/ML 30 UNITS SUB-Q ×2 (09:27→21:12)
[2023-10-15] MEDS: PANTOPRAZOLE SODIUM IV 40 MG VIAL IV PUSH (09:28)
--- NOTE | 2023-10-15 09:33 | PM.IMPN ---
Progress Note: A&P Assessment and Plan (1) Closed supracondylar fracture of femur: Qualifiers: Encounter type: initial encounter Laterality: left Qualified Code(s): S72.452A - Displaced supracondylar fracture without intracondylar extension of lower end of left femur, initial encounter for closed fracture Code(s): S72.453A - Displaced supracondylar fracture without intracondylar extension of lower end of unspecified femur, initial encounter for closed fracture Status: Acute (2) Obesity hypoventilation syndrome: Code(s): E66.2 - Morbid (severe) obesity with alveolar hypoventilation Status: Acute (3) Insulin dependent type 2 diabetes mellitus: Code(s): E11.9 - Type 2 diabetes mellitus without complications; Z79.4 - terminal operations supervisor (current) use of insulin Status: Acute (4) Chronic obstructive pulmonary disease: Code(s): J44.9 - Chronic obstructive pulmonary disease, unspecified Status: Acute (5) Acute on chronic respiratory failure with hypoxia and hypercapnia: Code(s): J96.21 - Acute and chronic respiratory failure with hypoxia; J96.22 - Acute and chronic respiratory failure with hypercapnia Status: Acute (6) Chronic kidney disease, stage III (moderate): Qualifiers: Chronic kidney disease stage 3 subtype: stage 3b (GFR 30-44) Qualified Code(s): N18.32 - Chronic kidney disease, stage 3b Code(s): N18.30 - Chronic kidney disease, stage 3 unspecified Status: Chronic Plan Closed supracondylar fracture of femur: ?Qualifiers: ?Encounter type:?initial encounter??Laterality:?left? Qualified Code(s):?S72.452A - Displaced supracondylar fracture without intracondylar extension of lower end of left femur, initial encounter for closed fracture ?Code(s): S72.453A - Displaced supracondylar fracture without intracondylar extension of lower end of unspecified femur, initial encounter for closed fracture ?Status:?Acute ?Assessment and Plan: ? In patient fell from bed 10/12 sustained left distal femur fracture on radiographs.? Appreciate orthopedic surgeon's consultation. Per orthopedic surgeon, patient is not a surgical candidate due to extensive medical comorbidities including severe respiratory compromise, diabetes, obesity, extremely high risk of infection and postoperative complications.? ? Non operative treatment reviewed. ? Will be difficult but may mobilize as tolerated.? Nonweightbearing left leg.? Pain control. Patient will be discharged to longterm, care transition manager is working on placement (1) Acute on chronic respiratory failure with hypoxia and hypercapnia: ?Code(s): J96.21 - Acute and chronic respiratory failure with hypoxia; J96.22 - Acute and chronic respiratory failure with hypercapnia ?Status:?Acute ?Assessment and Plan: Patient has multifactorial chronic respiratory failure and is on oxygen at home. Her respiratory failure secondary to diastolic dysfunction, pulmonary hypertension obesity hypoventilation, COPD, congestive heart failure, RSV infection CT chest suggest atelectasis with some areas of infiltrate and large hiatal hernia Intubated 09/29/2023 Extubated 10/08/2023 Completed course of ceftriaxone and doxycycline.? Also was treated with vancomycin the beginning. Continue bronchodilators -continue diuretics -stop isolation since has been > 1 week for RSV -09/29: Blood cultures 1 of 2 is growing Staph hominis which is likely a contaminant.? Vancomycin discontinued -10/01:? Blood cultures 1/2 bottles growing Staph epidermidis, likely contaminant as patient is afebrile, normal white count -10/05:? Sputum cultures: No organisms, many white cells seen - speech evaluation for bedside swallow.? Modified scheduled for 10/10/2023 could not be performed due to weight limited repeat bedside performed and started on diet - PT/OT to? evaluate and follow the patient BiPAP at night which is chronic (2) Obesity h
--- NOTE | 2023-10-15 09:38 | WPDNEURCNPN ---
Assessment and Plan Assessment and plan (1) Encephalopathy: Code(s): G93.40 - Encephalopathy, unspecified Status: Acute (2) Respiratory syncytial virus: Code(s): B33.8 - Other specified viral diseases Status: Acute (3) Acute on chronic respiratory failure with hypoxia and hypercapnia: Code(s): J96.21 - Acute and chronic respiratory failure with hypoxia; J96.22 - Acute and chronic respiratory failure with hypercapnia Status: Acute (4) Closed supracondylar fracture of femur: Qualifiers: Encounter type: initial encounter Laterality: left Qualified Code(s): S72.452A - Displaced supracondylar fracture without intracondylar extension of lower end of left femur, initial encounter for closed fracture Code(s): S72.453A - Displaced supracondylar fracture without intracondylar extension of lower end of unspecified femur, initial encounter for closed fracture Status: Acute Plan Delilah Ludwig is a 73 year old female with a history of CHF, CKD, COPD, depression, anxiety, diabetes, HLD, CIRILO, RLS currently admitted due to respiratory failure. There are concerns regarding patient's confusion and possibly an underlying diagnosis of dementia. Patient has had a length admission and was intubated for a prolonged period of time. I suspect that delirium is likely contributing to her acute confusion. It would not be a fair assesment for dementia while she is admitted in the hospital during an acute illness. I would recommend outpatient neurocogntive testing after discharge for further evaluation of dementia concerns. Will also need additional collateral information from family regarding how long these concerns have been going on and in which cognitive domains. In the meantime, work-up for cognitive impairment can be done during the admission. - Obtain MRI brain - Check B12, folate, thiamine levels Consult date: 10/15/23 Reason for consult: Confusion, concern for dementia HPI: Delilah Ludwig is a 73 year old female with a history of CHF, CKD, COPD, depression, anxiety, diabetes, HLD, CIRILO, RLS currently admitted due to respiratory failure. Neurology is being consulted due to patient's confusion and concerns for dementia. Looking back at patient's history at [facility], she has had several admissions in the past year.. She was admitted in June 2022 for confusion and inability to care for herself. She was ultimately diagnosed with UTI and cellulitis at that time. Her mental status during that admission is documented as AOx3. Patient was admitted again in December 2022 for respiratory symptoms. She was treated for sepsis due to pneumonia at that time. In June 2023 she presented again due to confusion. It was thought to be due to hypercapnia. She was placed on BiPAP and mentation seemed to improve. Her mental status from that admission is documented as AOx4. Most recently, patient presented on 09/29/23 with respiratory difficulties. She was found to be RSV positive. Due to respiratory failure she was intubated with sedation for several days (from 09/29 to 10/08). Respiratory failure was thought to be multifactorial given the COPD, obesity hypoventilation syndrome, and RSV infection. She was treated empirically with antibiotics during the admission. Blood cultures appears to be contaminants. Urine culture was negative. She was getting ready for discharge back to nursing facility but sustained a L distal femoral fracture on 10/12. 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 TSH and ammonia levels are normal from this admission. Patient reports that she has been non ambulatory for the past two years. She reports that she lives with her son. She says that she uses a wheelchair to get around. She also mentioned that she does most of her ADLs on her own including cooking and finances. Her son does help around the house. She does report some short term memory issues that have been occuring for the past 2-3 years. She has some de
[2023-10-15 11:42] LABS: Glucose Point of Care 196 mg/dl (65-105)
[2023-10-15] MEDS: HYDROCORTISONE 1% 30 GM CREAM 1 APPLIC TOPICAL ×2 (15:48→21:12)
[2023-10-15 17:07] LABS: Glucose Point of Care 183 mg/dl (65-105)
[2023-10-15 18:19] LABS: Folic Acid 8.6 ng/mL (2.76->20)
[2023-10-15 21:00] LABS: Glucose Point of Care 169 mg/dl (65-105)
[2023-10-15] MEDS: ATORVASTATIN 40 MG TABLET 80 MG PO (21:11)
[2023-10-15] MEDS: rOPINIRole HCL 1 MG TABLET 4 MG PO (21:11)
[2023-10-15] MEDS: ACETAMINOPHEN ELIXIR 325 MG/10.15 ML UDC 650 MG PO (21:11)
[2023-10-15] MEDS: MIRABEGRON 25 MG ER TABLET PO (21:11)
[2023-10-15] MEDS: ALPRAZolam (*CRX) 0.25 MG TABLET PO (21:11)
[2023-10-16] VITALS (13 sets, daily range): BP systolic 126–143; BP diastolic 67–83; PULSE 88–103; RESP 18–24; TEMP 36.1–36.8; O2SAT 93–97
[2023-10-16] MEDS: IPRATROPIUM 0.5 MG/ALBUTEROL SULFATE 2.5 MG AMPUL.NEB 3 ML INHALATION ×4 (02:28→21:15)
[2023-10-16 07:35] LABS: Glucose Point of Care 147 mg/dl (65-105)
[2023-10-16] MEDS: ACETAMINOPHEN ELIXIR 325 MG/10.15 ML UDC 650 MG PO (09:12)
[2023-10-16] MEDS: PANTOPRAZOLE 40 MG TABLET PO (09:13)
[2023-10-16] MEDS: LORATADINE 10 MG TABLET PO (09:13)
[2023-10-16] MEDS: FUROSEMIDE 40 MG TABLET PO (09:13)
[2023-10-16] MEDS: SERTRALINE HCL 50 MG TABLET 100 MG PO (09:13)
[2023-10-16] MEDS: TOLNAFTATE 1% POWDER 45 GM BTL 1 APPLIC TOPICAL ×2 (09:13→20:40)
[2023-10-16] MEDS: FERROUS SULFATE 325 MG TABLET DR PO (09:13)
[2023-10-16] MEDS: MICONAZOLE NITRATE 2% CREAM 30 GM TUBE 1 APPLIC TOPICAL ×2 (09:13→18:00)
[2023-10-16] MEDS: allopurinoL 100 MG TABLET PO ×2 (09:13→17:59)
[2023-10-16] MEDS: PANTOPRAZOLE SODIUM IV 40 MG VIAL IV PUSH (09:18)
[2023-10-16] MEDS: INSULIN GLARGINE (*BKC) 100 UNITS/ML 30 UNITS SUB-Q ×2 (09:19→20:39)
[2023-10-16 11:30] LABS: Glucose Point of Care 215 mg/dl (65-105)
[2023-10-16] MEDS: HYDROCORTISONE 1% 30 GM CREAM 1 APPLIC TOPICAL ×2 (13:51→20:41)
[2023-10-16] MEDS: INSULIN ASPART (*BKC) 100 UNITS/ML SUB-Q ×2 (13:51→20:39)
[2023-10-16 16:53] LABS: Glucose Point of Care 191 mg/dl (65-105)
--- NOTE | 2023-10-16 16:58 | PM.IMPN ---
Progress Note: A&P Assessment and Plan (1) Closed supracondylar fracture of femur: Qualifiers: Encounter type: initial encounter Laterality: left Qualified Code(s): S72.452A - Displaced supracondylar fracture without intracondylar extension of lower end of left femur, initial encounter for closed fracture Code(s): S72.453A - Displaced supracondylar fracture without intracondylar extension of lower end of unspecified femur, initial encounter for closed fracture Status: Acute Assessment and Plan: ? Patient is not a surgical candidate due to extensive medical comorbidities including severe respiratory compromise, diabetes, obesity, extremely high risk of infection and postoperative complications. (2) Obesity hypoventilation syndrome: Code(s): E66.2 - Morbid (severe) obesity with alveolar hypoventilation Status: Acute (3) Insulin dependent type 2 diabetes mellitus: Code(s): E11.9 - Type 2 diabetes mellitus without complications; Z79.4 - flotation operator (current) use of insulin Status: Acute (4) Chronic obstructive pulmonary disease: Code(s): J44.9 - Chronic obstructive pulmonary disease, unspecified Status: Acute (5) Acute on chronic respiratory failure with hypoxia and hypercapnia: Code(s): J96.21 - Acute and chronic respiratory failure with hypoxia; J96.22 - Acute and chronic respiratory failure with hypercapnia Status: Acute (6) Chronic kidney disease, stage III (moderate): Qualifiers: Chronic kidney disease stage 3 subtype: stage 3b (GFR 30-44) Qualified Code(s): N18.32 - Chronic kidney disease, stage 3b Code(s): N18.30 - Chronic kidney disease, stage 3 unspecified Status: Chronic Plan Closed supracondylar fracture of femur: ?Qualifiers: ?Encounter type:?initial encounter??Laterality:?left? Qualified Code(s):?S72.452A - Displaced supracondylar fracture without intracondylar extension of lower end of left femur, initial encounter for closed fracture ?Code(s): S72.453A - Displaced supracondylar fracture without intracondylar extension of lower end of unspecified femur, initial encounter for closed fracture ?Status:?Acute ?Assessment and Plan: ? In patient fell from bed 10/12 sustained left distal femur fracture on radiographs.? Appreciate orthopedic surgeon's consultation. Per orthopedic surgeon, patient is not a surgical candidate due to extensive medical comorbidities including severe respiratory compromise, diabetes, obesity, extremely high risk of infection and postoperative complications.? ? Non operative treatment reviewed. ? Will be difficult but may mobilize as tolerated.? Nonweightbearing left leg.? Pain control. [facility] will be discharged to [facility], hemodialysis patient care specialist is working on placement 10/16/23: ? Patient is not a surgical candidate due to extensive medical comorbidities including severe respiratory compromise, diabetes, obesity, extremely high risk of infection and postoperative complications. (1) Acute on chronic respiratory failure with hypoxia and hypercapnia: ?Code(s): J96.21 - Acute and chronic respiratory failure with hypoxia; J96.22 - Acute and chronic respiratory failure with hypercapnia ?Status:?Acute ?Assessment and Plan: Patient has multifactorial chronic respiratory failure and is on oxygen at home. Her respiratory failure secondary to diastolic dysfunction, pulmonary hypertension obesity hypoventilation, COPD, congestive heart failure, RSV infection CT chest suggest atelectasis with some areas of infiltrate and large hiatal hernia Intubated 09/29/2023 Extubated 10/08/2023 Completed course of ceftriaxone and doxycycline.? Also was treated with vancomycin the beginning. Continue bronchodilators -continue diuretics -stop isolation since has been > 1 week for RSV -09/29: Blood cultures 1 of 2 is growing Staph hominis which is likely a contaminant.? Vancomycin discontinued -0
[2023-10-16] MEDS: ATORVASTATIN 40 MG TABLET 80 MG PO (20:38)
[2023-10-16] MEDS: MIRABEGRON 25 MG ER TABLET PO (20:38)
[2023-10-16] MEDS: APIXABAN 2.5 MG TABLET PO (20:38)
[2023-10-16] MEDS: rOPINIRole HCL 1 MG TABLET 4 MG PO (20:38)
[2023-10-16 21:17] LABS: Glucose Point of Care 233 mg/dl (65-105)
[2023-10-17] VITALS (13 sets, daily range): BP systolic 114–146; BP diastolic 56–78; PULSE 100–106; RESP 16–20; TEMP 36.1–36.7; O2SAT 93–100
[2023-10-17] MEDS: IPRATROPIUM 0.5 MG/ALBUTEROL SULFATE 2.5 MG AMPUL.NEB 3 ML INHALATION ×4 (02:53→20:29)
[2023-10-17] MEDS: HYDROCORTISONE 1% 30 GM CREAM 1 APPLIC TOPICAL ×2 (05:28→14:42)
[2023-10-17 07:33] LABS: Glucose Point of Care 182 mg/dl (65-105)
[2023-10-17 08:57] LABS: Hematocrit 36.3 % (37.0-47.0); Mean Corpuscular HGB Conc 30.3 g/dl (32-36); Mean Corpuscular Hemoglobin 27.3 pg (26-34); Mean Corpuscular Volume 90.1 fl (80-100); Mean Platelet Volume 10.6 fl (7.4-10.4); Platelet Count Result 276 k/mm3 (150-375); Red Blood Count 4.03 M/mm3 (4.2-5.4); Red Cell Distribution Width 17.6 % (11.5-14.5); White Blood Count 10.9 K/mm3 (4.5-10.0)
[2023-10-17 09:06] LABS: Anion Gap 2 mmol/L (8-16); Blood Urea Nitrogen 30 mg/dL (7-17); Calcium 9.1 mg/dL (8.4-10.2); Carbon Dioxide 38 mmol/L (22-30); Chloride 94 mmol/L (98-107); Estimated CRCL calculation 65 ml/min; Estimated Glomerular Filt Rate 55; Glucose 218 mg/dL (65-110); Potassium 3.8 mmol/L (3.4-5.0); Sodium 134 mmol/L (137-145)
[2023-10-17] MEDS: SERTRALINE HCL 50 MG TABLET 100 MG PO (10:23)
[2023-10-17] MEDS: LORATADINE 10 MG TABLET PO (10:24)
[2023-10-17] MEDS: allopurinoL 100 MG TABLET PO ×2 (10:24→17:52)
[2023-10-17] MEDS: FERROUS SULFATE 325 MG TABLET DR PO (10:24)
[2023-10-17] MEDS: APIXABAN 2.5 MG TABLET PO ×2 (10:24→17:52)
[2023-10-17] MEDS: PANTOPRAZOLE 40 MG TABLET PO (10:25)
[2023-10-17] MEDS: TOLNAFTATE 1% POWDER 45 GM BTL 1 APPLIC TOPICAL ×2 (10:25→20:26)
[2023-10-17] MEDS: MICONAZOLE NITRATE 2% CREAM 30 GM TUBE 1 APPLIC TOPICAL ×2 (10:25→17:52)
[2023-10-17] MEDS: polyethylene glycoL 3350 17 GM POWD.PACK PO (10:25)
[2023-10-17] MEDS: INSULIN GLARGINE (*BKC) 100 UNITS/ML 30 UNITS SUB-Q ×2 (10:25→20:24)
[2023-10-17] MEDS: FUROSEMIDE 40 MG TABLET PO (10:38)
[2023-10-17 11:30] LABS: Glucose Point of Care 208 mg/dl (65-105)
[2023-10-17] MEDS: INSULIN ASPART (*BKC) 100 UNITS/ML SUB-Q ×2 (12:24→20:25)
--- NOTE | 2023-10-17 12:26 | PM.IMPN ---
Progress Note: A&P Assessment and Plan (1) Closed supracondylar fracture of femur: Qualifiers: Encounter type: initial encounter Laterality: left Qualified Code(s): S72.452A - Displaced supracondylar fracture without intracondylar extension of lower end of left femur, initial encounter for closed fracture Code(s): S72.453A - Displaced supracondylar fracture without intracondylar extension of lower end of unspecified femur, initial encounter for closed fracture Status: Acute Assessment and Plan: ? Patient is not a surgical candidate due to extensive medical comorbidities including severe respiratory compromise, diabetes, obesity, extremely high risk of infection and postoperative complications. (2) Obesity hypoventilation syndrome: Code(s): E66.2 - Morbid (severe) obesity with alveolar hypoventilation Status: Acute (3) Insulin dependent type 2 diabetes mellitus: Code(s): E11.9 - Type 2 diabetes mellitus without complications; Z79.4 - oysterman (current) use of insulin Status: Acute (4) Chronic obstructive pulmonary disease: Code(s): J44.9 - Chronic obstructive pulmonary disease, unspecified Status: Acute (5) Acute on chronic respiratory failure with hypoxia and hypercapnia: Code(s): J96.21 - Acute and chronic respiratory failure with hypoxia; J96.22 - Acute and chronic respiratory failure with hypercapnia Status: Acute (6) Chronic kidney disease, stage III (moderate): Qualifiers: Chronic kidney disease stage 3 subtype: stage 3b (GFR 30-44) Qualified Code(s): N18.32 - Chronic kidney disease, stage 3b Code(s): N18.30 - Chronic kidney disease, stage 3 unspecified Status: Chronic Plan Closed supracondylar fracture of femur: ?Qualifiers: ?Encounter type:?initial encounter??Laterality:?left? Qualified Code(s):?S72.452A - Displaced supracondylar fracture without intracondylar extension of lower end of left femur, initial encounter for closed fracture ?Code(s): S72.453A - Displaced supracondylar fracture without intracondylar extension of lower end of unspecified femur, initial encounter for closed fracture ?Status:?Acute ?Assessment and Plan: ? In patient fell from bed 10/12 sustained left distal femur fracture on radiographs.? Appreciate orthopedic surgeon's consultation. Per orthopedic surgeon, patient is not a surgical candidate due to extensive medical comorbidities including severe respiratory compromise, diabetes, obesity, extremely high risk of infection and postoperative complications.? ? Non operative treatment reviewed. ? Will be difficult but may mobilize as tolerated.? Nonweightbearing left leg.? Pain control. Patient will be discharged to [facility], patient care manager is working on placement 10/16/23: ? Per orthopedic surgery: Patient is not a surgical candidate due to extensive medical comorbidities including severe respiratory compromise, diabetes, obesity, extremely high risk of infection and postoperative complications. (1) Acute on chronic respiratory failure with hypoxia and hypercapnia: ?Code(s): J96.21 - Acute and chronic respiratory failure with hypoxia; J96.22 - Acute and chronic respiratory failure with hypercapnia ?Status:?Acute ?Assessment and Plan: Patient has multifactorial chronic respiratory failure and is on oxygen at home. Her respiratory failure secondary to diastolic dysfunction, pulmonary hypertension obesity hypoventilation, COPD, congestive heart failure, RSV infection CT chest suggest atelectasis with some areas of infiltrate and large hiatal hernia Intubated 09/29/2023 Extubated 10/08/2023 Completed course of ceftriaxone and doxycycline.? Also was treated with vancomycin the beginning. Continue bronchodilators -continue diuretics -stop isolation since has been > 1 week for RSV -09/29: Blood cultures 1 of 2 is growing Staph hominis which is likely a contaminant.? Michael
[2023-10-17] MEDS: LIDOCAINE 5% PATCH 1 PATCH TRANSDERM (14:42)
[2023-10-17 16:54] LABS: Glucose Point of Care 146 mg/dl (65-105)
[2023-10-17] MEDS: ATORVASTATIN 40 MG TABLET 80 MG PO (20:23)
[2023-10-17] MEDS: rOPINIRole HCL 1 MG TABLET 4 MG PO (20:23)
[2023-10-17] MEDS: MIRABEGRON 25 MG ER TABLET PO (20:24)
[2023-10-17 20:34] LABS: Glucose Point of Care 220 mg/dl (65-105)
--- NOTE | 2023-10-18 03:13 | PCRCNOTE ---
pt refused 0200 tx. Next scheduled tx will be 0800
[2023-10-18 06:00] VITALS: BP 117/62; PULSE 98; RESP 20; TEMP 36.4; O2SAT 99
[2023-10-18 07:39] LABS: Glucose Point of Care 144 mg/dl (65-105)
[2023-10-18 08:00] VITALS: PULSE 114; RESP 24; O2SAT 88
[2023-10-18] MEDS: IPRATROPIUM 0.5 MG/ALBUTEROL SULFATE 2.5 MG AMPUL.NEB 3 ML INHALATION (08:48)
[2023-10-18 08:51] VITALS: O2SAT 99
[2023-10-18 09:11] VITALS: PULSE 114; RESP 24; O2SAT 88
[2023-10-18 09:16] VITALS: PULSE 114; RESP 24
[2023-10-18] MEDS: allopurinoL 100 MG TABLET PO (09:32)
[2023-10-18] MEDS: FERROUS SULFATE 325 MG TABLET DR PO (09:32)
[2023-10-18] MEDS: APIXABAN 2.5 MG TABLET PO (09:32)
[2023-10-18] MEDS: FUROSEMIDE 40 MG TABLET PO (09:32)
[2023-10-18] MEDS: LIDOCAINE 5% PATCH 1 PATCH TRANSDERM (09:32)
[2023-10-18] MEDS: MICONAZOLE NITRATE 2% CREAM 30 GM TUBE 1 APPLIC TOPICAL (09:33)
[2023-10-18] MEDS: polyethylene glycoL 3350 17 GM POWD.PACK PO (09:33)
[2023-10-18] MEDS: TOLNAFTATE 1% POWDER 45 GM BTL 1 APPLIC TOPICAL (09:33)
[2023-10-18] MEDS: PANTOPRAZOLE 40 MG TABLET PO (09:35)
[2023-10-18] MEDS: INSULIN GLARGINE (*BKC) 100 UNITS/ML 30 UNITS SUB-Q (09:35)
[2023-10-18] MEDS: LORATADINE 10 MG TABLET PO (09:35)
[2023-10-18] MEDS: SERTRALINE HCL 50 MG TABLET 100 MG PO (09:35)
--- NOTE | 2023-10-18 09:40 | PM.IMPN ---
Progress Note: A&P Assessment and Plan (1) Closed supracondylar fracture of femur: Qualifiers: Encounter type: initial encounter Laterality: left Qualified Code(s): S72.452A - Displaced supracondylar fracture without intracondylar extension of lower end of left femur, initial encounter for closed fracture Code(s): S72.453A - Displaced supracondylar fracture without intracondylar extension of lower end of unspecified femur, initial encounter for closed fracture Status: Acute Assessment and Plan: ? Patient is not a surgical candidate due to extensive medical comorbidities including severe respiratory compromise, diabetes, obesity, extremely high risk of infection and postoperative complications. (2) Obesity hypoventilation syndrome: Code(s): E66.2 - Morbid (severe) obesity with alveolar hypoventilation Status: Acute (3) Insulin dependent type 2 diabetes mellitus: Code(s): E11.9 - Type 2 diabetes mellitus without complications; Z79.4 - terminal makeup operator (current) use of insulin Status: Acute (4) Chronic obstructive pulmonary disease: Code(s): J44.9 - Chronic obstructive pulmonary disease, unspecified Status: Acute (5) Acute on chronic respiratory failure with hypoxia and hypercapnia: Code(s): J96.21 - Acute and chronic respiratory failure with hypoxia; J96.22 - Acute and chronic respiratory failure with hypercapnia Status: Acute (6) Chronic kidney disease, stage III (moderate): Qualifiers: Chronic kidney disease stage 3 subtype: stage 3b (GFR 30-44) Qualified Code(s): N18.32 - Chronic kidney disease, stage 3b Code(s): N18.30 - Chronic kidney disease, stage 3 unspecified Status: Chronic Plan Closed supracondylar fracture of femur: ?Qualifiers: ?Encounter type:?initial encounter??Laterality:?left? Qualified Code(s):?S72.452A - Displaced supracondylar fracture without intracondylar extension of lower end of left femur, initial encounter for closed fracture ?Code(s): S72.453A - Displaced supracondylar fracture without intracondylar extension of lower end of unspecified femur, initial encounter for closed fracture ?Status:?Acute ?Assessment and Plan: ? In patient fell from bed 10/12 sustained left distal femur fracture on radiographs.? Appreciate orthopedic surgeon's consultation. Per orthopedic surgeon, patient is not a surgical candidate due to extensive medical comorbidities including severe respiratory compromise, diabetes, obesity, extremely high risk of infection and postoperative complications.? ? Non operative treatment reviewed. ? Will be difficult but may mobilize as tolerated.? Nonweightbearing left leg.? Pain control. [facility] specialist is working on placement 10/16/23: ? Per orthopedic surgery: Patient is not a surgical candidate due to extensive medical comorbidities including severe respiratory compromise, diabetes, obesity, extremely high risk of infection and postoperative complications. [facility], I also provide patient family with orthopedic doctor's office phone number when patient family request to follow with orthopedic doctor in the office (1) Acute on chronic respiratory failure with hypoxia and hypercapnia: ?Code(s): J96.21 - Acute and chronic respiratory failure with hypoxia; J96.22 - Acute and chronic respiratory failure with hypercapnia ?Status:?Acute ?Assessment and Plan: Patient has multifactorial chronic respiratory failure and is on oxygen at home. Her respiratory failure secondary to diastolic dysfunction, pulmonary hypertension obesity hypoventilation, COPD, congestive heart failure, RSV infection CT chest suggest atelectasis with some areas of infiltrate and large hiatal hernia Intubated 09/29/2023 Extubated 10/08/2023 Completed course of ceftriaxone and doxycycline.? Also was treated with vancomycin the be
--- NOTE | 2023-10-18 09:46 | PM.DS ---
DS: Admitting Diagnosis Discharge Date 10/18/23 Admitting Diagnosis (1) Encephalopathy: ?Code(s): G93.40 - Encephalopathy, unspecified ?Status:?Acute (2) Respiratory syncytial virus: ?Code(s): B33.8 - Other specified viral diseases ?Status:?Acute (3) Acute on chronic respiratory failure with hypoxia and hypercapnia: ?Code(s): J96.21 - Acute and chronic respiratory failure with hypoxia; J96.22 - Acute and chronic respiratory failure with hypercapnia ?Status:?Acute (4) Closed supracondylar fracture of femur: ?Qualifiers: ?Encounter type:?initial encounter??Laterality:?left? Qualified Code(s):?S72.452A - Displaced supracondylar fracture without intracondylar extension of lower end of left femur, initial encounter for closed fracture ?Code(s): S72.453A - Displaced supracondylar fracture without intracondylar extension of lower end of unspecified femur, initial encounter for closed fracture ?Status:?Acute DS: Discharge Diagnosis Discharge Diagnosis (1) Closed supracondylar fracture of femur: Qualifiers: Encounter type: initial encounter Laterality: left Qualified Code(s): S72.452A - Displaced supracondylar fracture without intracondylar extension of lower end of left femur, initial encounter for closed fracture Code(s): S72.453A - Displaced supracondylar fracture without intracondylar extension of lower end of unspecified femur, initial encounter for closed fracture Status: Acute (2) Obesity hypoventilation syndrome: Code(s): E66.2 - Morbid (severe) obesity with alveolar hypoventilation Status: Acute (3) Insulin dependent type 2 diabetes mellitus: Code(s): E11.9 - Type 2 diabetes mellitus without complications; Z79.4 - mixer wet pour (current) use of insulin Status: Acute (4) Chronic obstructive pulmonary disease: Code(s): J44.9 - Chronic obstructive pulmonary disease, unspecified Status: Acute (5) Acute on chronic respiratory failure with hypoxia and hypercapnia: Code(s): J96.21 - Acute and chronic respiratory failure with hypoxia; J96.22 - Acute and chronic respiratory failure with hypercapnia Status: Acute (6) Chronic kidney disease, stage III (moderate): Qualifiers: Chronic kidney disease stage 3 subtype: stage 3b (GFR 30-44) Qualified Code(s): N18.32 - Chronic kidney disease, stage 3b Code(s): N18.30 - Chronic kidney disease, stage 3 unspecified Status: Chronic DS: Summary Hospital Course Hospital Course: This is a 73-year-old female congestive heart failure, hypertension, dyslipidemia, chronic obstructive pulmonary disease, chronic respiratory failure on 2 L nasal cannula, rheumatoid arthritis, insulin-dependent type 2 diabetes mellitus, morbid obesity, and other comorbidities who presented to the emergency department via EMS from a local rehab facility for evaluation of shortness of breath. She presented to the ED with complaints of shortness of breath and on EMS arrival she was reportedly found to have an SpO2 of 65% on 4 L nasal cannula. She was placed on CPAP and was administered albuterol an line and Solu-Medrol. On arrival to the ED she was in respiratory extremis and was lethargic and minimally arousable, unable to answer questions. She was intubated shortly thereafter. Preliminary evaluation showed that she was positive for RSV and chest CT showed ground-glass opacities which could be infiltrate or atelectasis. She was started on antibiotics and nebulizer treatments and was admitted to the ICU in this setting. The following medication issues have been addressed during hospitalization Closed supracondylar fracture of femur: ?Qualifiers: ?Encounter type:?initial encounter??Laterality:?left? Qualified Code(s):?S72.452A - Displaced supracondylar fracture without intracondylar extension of lower end of left femur, initial encounter for closed fracture ?Code(s): S7
[2023-10-18 11:36] LABS: Glucose Point of Care 204 mg/dl (65-105)
[2023-10-18 12:43] VITALS: PULSE 104; RESP 22
[2023-10-18] MEDS: LEVALBUTEROL HFA (*SP) 15 GM INHALER 2 PUFF INHALATION (12:43)
[2023-10-18] MEDS: INSULIN ASPART (*BKC) 100 UNITS/ML SUB-Q (12:58)
== END 2023-10-18 13:30 | DRG 207 ==
LOC: ANHED 07:33 → ANHICU 07:44 → ANH3MEDSUR 10-12 13:02 → ANHICU 10-19 09:13
PROVIDERS: Internal Medicine; Student in an Organized Health Care Education/Training Program; Admitting Provider Family Medicine; Emergency Provider Emergency Medicine; PCP Hospitalist; Visit Provider Hospitalist
DX: J96.21 Acute and chronic respiratory failure with hypoxia (principal); S72.452A Displaced supracondylar fracture without intracondylar extension of lower end of left femur, initial encounter for closed fracture; G93.41 Metabolic encephalopathy; I50.33 Acute on chronic diastolic (congestive) heart failure; I13.0 Hypertensive heart and chronic kidney disease with heart failure and stage 1 through stage 4 chronic kidney disease, or unspecified chronic kidney disease; E66.2 Morbid (severe) obesity with alveolar hypoventilation; Z68.43 Body mass index [BMI] 50.0-59.9, adult; N39.0 Urinary tract infection, site not specified; F05 Delirium due to known physiological condition; W06.XXXA Fall from bed, initial encounter; J96.22 Acute and chronic respiratory failure with hypercapnia; J22 Unspecified acute lower respiratory infection; B97.4 Respiratory syncytial virus as the cause of diseases classified elsewhere; N18.32 Chronic kidney disease, stage 3b; M06.9 Rheumatoid arthritis, unspecified; E11.22 Type 2 diabetes mellitus with diabetic chronic kidney disease; B37.2 Candidiasis of skin and nail; E87.8 Other disorders of electrolyte and fluid balance, not elsewhere classified; E11.42 Type 2 diabetes mellitus with diabetic polyneuropathy; G25.81 Restless legs syndrome; D50.9 Iron deficiency anemia, unspecified; F41.8 Other specified anxiety disorders; E78.5 Hyperlipidemia, unspecified; K44.9 Diaphragmatic hernia without obstruction or gangrene; J44.9 Chronic obstructive pulmonary disease, unspecified; M19.90 Unspecified osteoarthritis, unspecified site; D63.8 Anemia in other chronic diseases classified elsewhere; Z79.4 Long term (current) use of insulin; Z99.81 Dependence on supplemental oxygen; Z99.3 Dependence on wheelchair
CPT/HCPCS: 31500; 36415; 36569; 36600; 70450; 71045; 71250; 73521; 73560; 73700; 80048; 80053; 80202; 81001; 82140; 82375; 82607; 82746; 82805; 82948; 83050; 83605; 83690; 83735; 83880; 84100; 84443; 84484; 85025; 85027; 85610; 85730; 87040; 87070; 87086; 87205; 87637; 87641; 92526; 92610; 93005; 94002; 94003; 94640; 96365; 96375; 96376; 97161; 97165; 97535; 99285; A9270; C9113; J0360; J0456; J0696; J1100; J1170; J1815; J1940; J2060; J2250; J2270; J2704; J2930; J2997; J3010; J3370; J3480; L1830; P9047

== ENCOUNTER 2024-11-18 16:46 | Inpatient (IN) | payer MEDICARE, SELFPAY ==
[2024-11-18] VITALS (12 sets, daily range): BP systolic 102–111; BP diastolic 64–69; PULSE 83–93; RESP 15–19; TEMP 36.2–37.8; O2SAT 88–99; BMI 54.8
--- NOTE | ~2024-11-18 | CT_ITS ---
EXAMINATION: CTA chest PE protocol DATE: 11/18/2024 18:19 INDICATION: Chest pain, positive d-dimer TECHNIQUE: Computed tomography angiography (CTA) of the chest was performed with 100 mL Omnipaque-350 intravenous contrast timed to evaluate the pulmonary arteries. Coronal maximum intensity projection 3D-reconstructions were created by the technologist. Automated exposure control and iterative reconst ruction technique were employed. Exam dose: 897.31 mGy-cm total exam DLP. COMPARISON: 11/18/2024 2 view chest FINDINGS: No CT evidence of pulmonary embolism is detected. There is right lower lobe patchy atelectasis and/or consolidation. There are scattered groundglass in filtrates and/or atelectasis elsewhere, including posterior left upper lobe but no consolidation. Heart size is within normal range. Left anterior descending coronary artery calcification. No thoracic aortic aneurysm or dissection. No pericardial or pleural effusion. Moderate sliding hiatal hernia. Normal morphology of the adrenal glands. Left renal cysts. No suspicious osteolytic or osteoblastic lesions are noted. IMPRESSION: No CT evidence of pulmonary embolism Right lower lobe patchy atelectasis/or consolidation Scattered patchy bilateral pulmonary infiltrate and/or atelectasis Reviewed, dictated and finalized at [facility]. Reviewed, dictated and finalized at [facility].
--- NOTE | ~2024-11-18 | XR_ITS ---
XR chest 2V DATE: 11/18/2024 18:09 INDICATION: Shortness of breath. Coarse crackles. TECHNIQUE: 2 views COMPARISON: 10/12/2023 AP chest FINDINGS: Mild discoid atelectasis at the medial right lung base. The lungs otherwise appear clear. Heart size appears within normal range. There is aortic unfolding. No hilar or mediastinal enlargemen t is evident. No pleural effusion or pulmonary vascular congestion or pneumothorax. IMPRESSION: Medial right basilar atelectasis Reviewed, dictated and finalized at location [facility].
--- NOTE | 2024-11-18 16:54 | ECG_ITS ---
Test Date: 2024-11-18 16:59:38 Measurements Intervals [place] Rate: 89 P: 53 OK: 149 QRS: 78 QRSD: 113 T: 55 QT: 385 QTc: 470 Interpretive Statements SINUS RHYTHM LOW QRS VOLTAGE IN PRECORDIAL LEADS [QRS DEFLECTION < 1.0 mV IN CHEST LEADS] INCOMPLETE RIGHT BUNDLE BRANCH BLOCK [90+ ms QRS DURATION, TERMINAL R IN V1/V2, 40+ ms S IN I/aVL/V4/V5/V6] No previous ECG available for comparison Electronically Signed On 11-18-2024 17:44:24 CDT by Melody Cuellar M.D.
[2024-11-18] MEDS: ACETAMINOPHEN 500 MG TABLET 1000 MG PO (17:15)
[2024-11-18 17:18] LABS: Basophils Absolute Auto 0.1 K/mm3 (0.0-0.1); Basophils Percent Auto 0.4 % (0.2-1.2); Eosinophils Percent Auto 0.2 % (0-4.4); Hematocrit 43.5 % (37.0-47.0); Hemoglobin 14.1 g/dL (12.0-15.0); Immature Granulocyte Absolute 0.12 K/mm3 (0.00-0.031); Immature Granulocyte Percent A 0.7 % (0-0.5); Lymphocytes Percent Auto 6.6 % (18.3-44.2); Mean Corpuscular HGB Conc 32.4 g/dl (32-36); Mean Corpuscular Hemoglobin 31.5 pg (26-34); Mean Corpuscular Volume 97.1 fl (80-100); Mean Platelet Volume 10.6 fl (7.4-10.4); Monocytes Absolute Auto 1.3 K/mm3 (0.1-0.6); Monocytes Percent Auto 7.4 % (2.6-8.5); Neutrophils Absolute Auto 15.5 K/mm3 (1.3-6.7); Neutrophils Percent Auto 84.7 % (45.5-73.1); Platelet Count Result 224 k/mm3 (150-375); Red Blood Count 4.48 M/mm3 (4.2-5.4); Red Cell Distribution Width 13.8 % (11.5-14.5); White Blood Count 18.2 K/mm3 (4.5-10.0)
--- OUTSIDE RECORDS SUMMARY | 2024-11-18 17:24 | XMS_ITS | Clinical Summary ---
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 Pulse 133 07/16/2015 12:01 PM [employer]ORTER Temperature - - Respiratory Rate - - Oxygen Saturation - - Inhaled Oxygen Concentration - - Weight 161.9 kg (357 lb) 07/16/2015 12:01 PM SE[employer] PIPE SORTER Height 158.8 cm (5' 2.5 ) 07/16/2015 12:01 PM CS T Body Mass Index 64.26 07/16/2015 12:01 PM SEWER PIPE 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 Plan of Treatment Health Maintenance Due Date Last Done Comments Colorectal Cancer Screening Colonoscopy (10 Years) 1952 Hepatitis C 1970 Mammogram Screening 1992 DTaP, Tdap and Td Vaccines ( 1 - Tdap) 03/16/2010 03/15/2010 Zoster Vaccines (2 of 3) 05/03/2015 03/08/2015 Dexa Scan (General) 2017 Pneumococcal Vaccine: 65+ Ye ars (2 of 2 - PCV) 2017 09/15/2013 COVID-19 Vaccine (2023-2 5 season) 2024 Influenza Adult (#1) 2024 06/10/2015 RSV Immunization or 60+ Years (1 - 1-dose 75+ series) 2027 Meningococcal B Vaccine Aged Out No l onger eligible based on patient's age to complete this topic Meningococcal Vaccine Aged Out No mary luisa eligible based on patient's age to complete this topic RSV Immunizations Under 20 Months Aged Out No longer eligible based on patient's age to complete this topic
--- OUTSIDE RECORDS SUMMARY | 2024-11-18 17:24 | XMS_ITS | Continuity of Care Document ---
Author Organization [facility] Address [address] [facility] [place] [address] Phone Care Team Providers Care Molding Press Operator Name Role Phone Pepe Howard Unavailable Unavailable Allergies, Adverse Reactions, Alerts Substance Reaction Status Criticality NSAIDS (Non-Steroidal Anti-Inflammatory Drug) Active No Information Medications Medication Instructions Dosage Effective Dates (start - stop) Status Comments Ultram 50 mg tablet take 1 - 2 Tablet (50MG) by ORAL route every 4 - 6 hours as needed 50 MG - Active Prescription mus t last a month. Must be seen before next refill. Requip 1 mg tablet take 1 tablet (1MG) by oral route every day 1 MG - Active Cymbalta 60 mg capsule,delayed release take 1 capsule (60MG) by oral route every day 60 MG - Active Vistaril 25 mg capsule take 2 Capsule (50MG) by ORAL route 3 times every day PRN 50 MG - Active Must be seen before next refill. lisinopril 20 mg tablet take 1 tablet (20MG) by ORAL route every 24 hours 20 MG - Active Klor-Con 10 10 mEq tablet,extended release take 1 Tablet (10MEQ) by oral route every day with food 10 MEQ - Active Detrol LA 4 mg capsule,extended release take 1 capsule (4MG) by oral route every day 4 MG - Active Asmanex Twisthaler 220 mcg (30 doses) Breath Activated inhale 1 puff (220MCG) by inhalation route every day at nighttime 220 MCG - Active Lasix 40 mg tablet take 1 Tablet (40MG) by ORAL route every day 40 MG - Active Crestor 5 mg tablet take 1 Tablet (5MG) by ORAL route every day 5 MG - Active Nexium 20 mg capsule,delayed release take 1 capsule (20MG) by oral route every day - Active glipizide 5 mg tablet take 1 tablet (5MG) by oral route 2 times every day before meals 5 MG - Active prednisone 10 mg tablet take 1 tablet by mouth every other day - Active Fish Oil 1,000 mg capsule take by Oral route 2 times every day - Active Flonase 50 mcg/actuation Nasal Collbran spray 1 spray by intranasal route every day in each nostril - Active Procedures Procedure Date OFFICE/OUTPATIENT VISIT, NEW Advance Directives Directive Yes / No Effective Date File Name No Information Encounters Encounter Description Practice Location Reason(s) For Visit Diagnoses Date Provider Providers Copied on Encounter [facility], [address] [place] [address], [facility], tel:[phone] *[facility] No Information 8 Anita Cantu. [address] [place] [address], [facility], . tel:[phone] [facility], [address] [place] [address], [facility], tel:[phone] *[facility] Hypertension, Unspecified [address] [address], . tel:[phone] [facility], [address] [place] [address], [facility], tel:[phone] *[facility] No Information [address] [place], [place], [facility], [place]. tel:[phone], [facility], tel:[phone] *[facility] No Information [address] [address], . tel:[phone] [facility], [address] [place] [address], [address], tel:[phone] *[facility] No Information 3 Declue Kristen. [address] [place], [address], [place]. tel:[phone] [facility], [address] [place], [address], [place] tel:[phone] *[facility] No Information [address] [place], [address], [place]. tel:[phone] [facility], [address] [place], [address], [place] tel:[phone] *[facility] No Information 3 No Information [facility], [address] [place], [address], tel:[phone] *[facility] No Information 3 No Information [facility], [address] [place], [address], [place] tel:[phone] *[facility] No Information [address]. [address] [place], [address], [place]. tel:[phone] [facility], [address] [place], [address], [place] tel:[phone] *[facility] No Information 3 Vazquez Epstein. [address] [place], [address], [place]. tel:[phone] [facility], [address] [place], [address], [place] tel:[phone] *[facility] No Information [address] [place], [place], [facility], [place]. tel:[phone] OFFICE/OUTPA TIENT VISIT, [facility], [address] [place], [address], [place] tel:[phone] *[facility] foot pain (chief complaint) Obesity, MorbidPain in joint, site unspecifiedHype rtension, UnspecifiedAnxi etyDepressionGE RD [address]oving. [address] [place], [address], [place]. tel:[phone] [facility], [address] [place], [address], tel:[phone] *[facility] chronic conditions (chief complaint) Obesity, Morbid 3 [address] Loving. [address] [place], [address], [place]. tel:[phone] [facility], [address] [place], [address], [place] tel:[phone] *[facility] chronic conditions (chief complaint) No Information 3 Christina Loving. [address] [place], [address], [place]. tel:[phone] Family History Family Member Type Diagnosis Age At Onset grandparents Problem (finding) hypertension Mother Problem (finding) raised blood lipids grandparents Problem (finding) Cancer, unknown Father Problem (finding) raised blood lipids grandparents Problem (finding) raised blood lipids grandparents Problem (finding) Maternal history of deisy betes mellitus grandparents Problem (finding) coronary arterioscleros is Payers Payer name Insurance type Covered green party ID Authoriza tion(s) No Information Social History Type Description Quantity Date Captured Comments Sex Female Smoking Status No Information Chief Complaint And Reason For Visit No Information Reason For Referral Reason For Referral No Information Plan Of Treatment Date Type Action Status Referral Ordered: X-RAY EXAM OF FOOT Left foot Appointment date/timeframe: 01/18/2013 ordered History Of Present Illness Encounter Date Complaint History Of Prese nt Illness No Information Functional Status Date Functional Assessmen t No Information Instructions Date Instruction Additional Infor mation Dietary counseling Related to Mo rbid obesity, BMI 40 or more Decrease caloric intake Related to Morbid obesity, BMI 40 or more Physical activity counseling Rel ated to Morbid obesity, BMI 40 or more Assessments Type Assessment Date No Information Patient Care Teams Name Effective Dates (start - stop) Status Members No Information
--- OUTSIDE RECORDS SUMMARY | 2024-11-18 17:24 | XMS_ITS | Continuity of Care Document ---
Author Organization [facility] Address [id number] [address] Phone Care Team Providers Care Marker Assembler Name Role Phone Villa Jimenez MD Unavailable Unavailable Medications Medication Instructions Dosage Effective Dates (start - stop) Status Comments FLONASE (unknown strength) SI spray(s) intranasally 2 times a day Not Available - Active lovastatin 20 mg Tab SI TAB orally once a day - Active calcium carbonate 600 mg (1,500 mg) Tab SI TAB orally 2 times a day - Active Zithromax 250 mg Tab SI tab(s) orally for 1 day(s) SI tab(s) orally for 4 day(s) SIG: - Active ASPIRIN (unknown strength) SI mg orally once a day Not Available - Active DYAZIDE (unknown strength) SI cap(s) orally once a day Not Available - Active LISINOPRIL (unknown strength) SI TAB orally 2 times a day Not Available - Active PRILOSEC OTC (unknown strength) SI ECT orally 2 times a day Not Available - Active CITALOPRAM HBR (unknown strength) SI mg orally once a day Not Available - Active GLUCOSAMINE (unknown strength) SI CAP orally once a day Not Available - Active Requip 1 mg Tab SI TAB orally once a day - Active VITAMIN B-12 (unknown strength) SI TAB orally once a day Not Available - Active Vitamin C 100 mg Tab SI TAB orally once a day - Active CHERATUSSIN AC (unknown strength) SI mL orally every 4 hours PRN(as needed for cough and congestion) Not Available - Active furosemide 40 mg Tab SI TAB orally once a day - No Longer Active ASPIRIN (unknown strength) SI mg orally once a day Not Available - No Longer Active FLONASE (unknown strength) SI spray(s) intranasally 2 times a day Not Available - No Longer Active LISINOPRIL (unknown strength) SI TAB orally 2 times a day Not Available - No Longer Active DYAZIDE (unknown strength) SI cap(s) orally once a day Not Available - No Longer Active PRILOSEC OTC (unknown strength) SI ECT orally 2 times a day Not Available - No Longer Active furosemide 40 mg Tab SI TAB orally once a day - No Longer Active lovastatin 20 mg Tab SI TAB orally once a day - No Longer Active VITAMIN B-12 (unknown strength) SI TAB orally once a day Not Available No Longer Active Vitamin C 100 mg Tab SI mg orally once a day - No Longer Active CITALOPRAM HBR (unknown strength) SI TAB orally once a day 1/2 tab po QD x 1 week then 1 po QD Not Available - No Longer Active Requip 1 mg Tab SI TAB orally once a day - No Longer Active calcium carbonate 600 mg (1,500 mg) Tab SI TAB orally 2 times a day - No Longer Active GLUCOSAMINE (unknown strength) SI CAP orally once a day Not Available - No Longer Active Procedures Procedure Date EST-EXP PROB FOC/LOW COMPLEXITY 006 COMPREHEN METABOLIC PANEL EST-PROB FOC/STR FORWARD LIPID PANEL Advance Directives Directive Yes / No Effective Date File Name No Information Encounters Encounter Description Practice Location Reason(s) For Visit Diagnoses Date Provider Providers Copied on Encounter EST-EXP PROB FOC/LOW COMPLEXITY [facility], [id number], [id number], [place] tel:[phone] Family Medicine F1 Acute sinusitis, unspecifiedAcute bronchitis 6 [facility] [address], [place], [id number], [place]. tel:[phone] EST-PROB FOC/STR FORWARD [facility], [id number], [id number], tel:[phone] Family Medicine F1 Long-term (current) use of other medications 6 No Information [facility], [id number], [id number], tel:[phone] Family Medicine F1 Unspecified arthropathy, site unspecifiedNervou s system complication, unspecifiedEsopha geal refluxUnspecified essential hypertensionOther and unspecified hyperlipidemiaObe sity, unspecifiedDepres sive disorder, not elsewhere classifiedAbdomin al pain, unspecified site 6 No Information Family History Family Member Type Diagnosis Age At Onset No Information Payers Payer name Insurance type Covered democrat ID Authoriza tion(s) No Information Social History Type Description Quantity Date Captured Comments Sex Female Smoking Status No Information Chief Complaint And Reason For Visit No Information Reason For Referral Reason For Referral No Information History Of Present Illness Encounter Date Complaint History Of Prese nt Illness No Information Functional Status Date Functional Assessmen t No Information Medications Administered Medication Instructions Dosage Effective Dates (start - stop) Status Comments furosemide 40 mg Tab SI TAB orally once a day - No Longer Active Instructions Date Instruction Additional Infor mation No Information Assessments Type Assessment Date No Information Patient Care Teams Name Effective Dates (start - stop) Status Members No Information
[2024-11-18 17:27] LABS: Alanine Aminotransferase 24 U/L (6-35); Albumin Level 3.5 g/dL (3.5-5.1); Alkaline Phosphatase 136 U/L (38-126); Anion Gap 4 mmol/L (4-12); Aspartate Amino Transferase 36 U/L (14-36); Bilirubin,Total 1.1 mg/dL (0.2-1.3); Blood Urea Nitrogen 38 mg/dL (7-17); Carbon Dioxide 37 mmol/L (22-30); Chloride 93 mmol/L (98-107); Estimated CRCL calculation 46 ml/min; Estimated Glomerular Filt Rate 39; Glucose 161 mg/dL (65-110); Potassium 4.3 mmol/L (3.4-5.0); Sodium 134 mmol/L (137-145)
--- NOTE | 2024-11-18 17:33 | PC.NURSE ---
called pt son per their request. provided a warm compress for patients eyes for comfort and to wipe off drainage.
--- NOTE | 2024-11-18 17:36 | ED_ITS ---
HPI - General Adult General Chief complaint: Upper Respiratory Infection Stated complaint: SOB Time Seen by Provider: 11/18/24 16:48 History of Present Illness HPI narrative: 74-year-old female present to the emergency department for evaluation for worsening cough congestion and shortness of breath. Patient states she wears 2 L of oxygen at intermittently. Patient did have COVID approximately 2 weeks ago. Patient states he has been feeling better but then began developing worsening cough congestion and shortness of breath. Upon arrival emergency department patient has a low-grade fever with an oral temperature of 100.1?. Patient also has had worsening conjunctivitis over the last few days. Related Data Home Medications ?Medication ?Instructions ?Recorded ?Confirmed ?Last Taken ?Type albuterol sulfate 90 mcg/actuation 2 puff inhalation BID 12/30/22 09/29/23 Unknown History aerosol inhaler allopurinol 100 mg tablet 100 mg PO BID 12/30/22 09/29/23 Unknown History apixaban 2.5 mg tablet (Eliquis) 2.5 mg PO BID 12/30/22 09/29/23 Unknown History atorvastatin 80 mg tablet 80 mg PO HS 12/30/22 09/29/23 Unknown History azelastine 0.05 % eye drops 1 drp ophthalmic (eye) BID 12/30/22 09/29/23 Unknown History benzonatate 200 mg capsule 200 mg PO Q8H PRN Cough 12/30/22 09/29/23 Unknown History buspirone 7.5 mg tablet 7.5 mg PO BID 12/30/22 09/29/23 Unknown History fluticasone propionate 50 1 spray intranasal DAILY 12/30/22 09/29/23 Unknown History mcg/actuation nasal spray,suspension gabapentin 300 mg capsule 300 mg PO TID 12/30/22 09/29/23 Unknown History insulin glargine 100 unit/mL 28 unit subcut DAILY 12/30/22 09/29/23 Unknown History subcutaneous solution insulin glargine 100 unit/mL 42 unit subcut HS 12/30/22 09/29/23 Unknown History subcutaneous solution ipratropium bromide 0.02 % 3 ml continuous nebulization Q6H 12/30/22 09/29/23 Unknown History solution for inhalation loratadine 10 mg tablet (Claritin) 10 mg PO DAILY 12/30/22 09/29/23 Unknown History mirabegron 25 mg tablet,extended 25 mg PO HS 12/30/22 09/29/23 Unknown History release 24 hr (Myrbetriq) omeprazole 20 mg capsule,delayed 20 mg PO DAILY 12/30/22 09/29/23 Unknown History release ropinirole 2 mg tablet 4 mg PO HS 12/30/22 09/29/23 Unknown History sertraline 100 mg tablet 100 mg PO DAILY 12/30/22 09/29/23 Unknown History hydrocortisone 1 % topical cream 1 applic topical BID 07/28/23 09/29/23 Unknown History ondansetron 4 mg disintegrating 4 mg PO Q6H PRN Nausea And Vomiting 07/28/23 09/29/23 Unknown History tablet dulaglutide 1.5 mg/0.5 mL 1.5 mg subcut WEEKLY 09/29/23 09/29/23 Unknown History subcutaneous pen injector (Trulicity) ferrous sulfate 325 mg (65 mg 325 mg PO DAILY 09/29/23 09/29/23 Unknown History iron) capsule,extended release nitroglycerin 0.4 mg sublingual 0.4 mg sublingual Q5M PRN Chest 09/29/23 09/29/23 Unknown History tablet Pain Allergies Allergy/AdvReac Type Severity Reaction Status Date / Time NSAIDS (Non-Steroidal Allergy Unknown Other Verified 07/27/23 08:11 Anti-Inflamma Review of Systems 2 Review of Systems: All systems reviewed & are unremarkable except as noted in HPI and below PMFSH Past Medical History Medical History Anemia of chronic disease Chronic kidney disease, stage III (moderate) Chronic midline low back pain Chronic obstructive pulmonary disease Chronic respiratory failure with hypoxia, on home oxygen therapy Closed supracondylar fracture of femur Congestive heart failure Most recent echocardiogram showed normal LV systolic function and size with an EF of 60 to 65%, grade 1 diastolic dysfunction, biatrial enlargement, and an estimated PA SP of 63 mmHg. Degenerative joint disease Depression with anxiety With history of panic attacks Diabetic polyneuropathy Diverticulosis Essential (primary) hypertension Hiatal hernia Small hiatal hernia noted on barium swallow performed due to dysphagia and sensation of globus. Of the mid distal esophagus, repeated mid distal esophageal reflux Hyperlipidemia Insulin dependent type 2 diabetes mellitus Iron deficiency anemia Irritable bowel syndrome Lung nodule Lymphedema of both lower extremities Morbid obesity Obesity hypoventilation syndrome Obstructive sleep apnea Osteoarthritis Overactive bladder With chronic urinary incontinence Beal catheter placed in the ER Polyarthritis of multiple sites Postmenopausal Recurrent UTI Renal lesion Restless leg syndrome Spondylosis Thyroid nodule Surgical History Surgical History History of colonoscopy with polypectomy Family History Family History Sibling , Sister Cancer Psychiatric illness Father Cancer Mother Cancer Son Cancer Social History Social History Social History: Surrogate medical decision maker: Code status: Full code. Smoking status: Never smoker Second hand tobacco smoke exposure: No Additional smoking assessment comments: information provided by patients son. Alcohol intake: never Alcohol use details: social Substance use: never Substance use type: marijuana Last use: 07/18/22 Lack of Transportation: No Lack of Food: Never True Current Housing: I Have Housing Concerned About Future Housing: No Difficulty Paying Gas/Electric Bills: No Difficulty Paying for Meds: No Currently Unemployed: No Education: Decline to Answer Difficulty w/ Childcare or Family Care: No Living arrangements: longterm Additional living arrangements comments: [facility]. Wheelchair- bound. Two children. 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 Spiritual care concerns: No Agree to blood products: Yes Exam 2 Narrative: APPEARANCE: Well appearing, no pain, no distress, well-nourished. HEAD: normocephalic, atraumatic. EYES: PERRLA/EOMI, bilateral conjunctivitis with discharge NOSE: Normal no drainage EARS:TMS clear with good light reflex. THROAT: Pharynx clear, no exudate. NECK: Supple. No adenopathy, no masses. RESPIRATORY: Productive cough with congested lung sounds bilateral CARDIOVASCULAR: Regular rate and rhythm without murmurs rubs or gallops. ABDOMINAL: Soft, nontender, nondistended, normal bowel sounds MUSCULOSKELETAL: Moves all extremities. Strength/ROM intact, No edema, No calf tenderness. NEURO: Alert. Cranial nerves II through XII intact. Grossly intact SKIN: Warm, dry. Normal Color Course Vital Signs Vital signs: Vital Signs Pulse Rate 93 11/18/24 16:47 Respiratory Rate 18 11/18/24 16:47 Blood Pressure 111/64 11/18/24 16:47 Pulse Oximetry 88 L 11/18/24 16:47 Oxygen Delivery Room Air 11/18/24 16:47 Temperature 98.8 F 11/18/24 18:33 Pulse Rate 84 11/18/24 18:45 Respiratory Rate 18 11/18/24 18:45 Blood Pressure 102/64 11/18/24 18:30 Pulse Oximetry 95 11/18/24 18:45 Oxygen Delivery Nasal Cannula 11/18/24 17:30 Oxygen Flow Rate 2 11/18/24 17:30 Medical Decision Making MDM Narrative Medical decision making narrative: 74-year-old female presents emergency department for evaluation for worsening cough congestion and shortness of breath and patient has increased O2 requirement. Patient does have a low-grade fever and patient does have an elevated leukocytosis 18.2, hemoglobin of 14.1. Patient has no significant acute abnormalities on her CMP, CTA was negative for pulmonary embolism but was concerning for consolidation. Patient started on Rocephin and azithromycin for pneumonia. Patient was also started on Ciloxan eyedrops for conjunctivitis. Case was discussed with hospitalist patient was accepted for admission. Differential Diagnosis Differential Diagnosis: COVID, RSV, influenza, pneumonia, pulmonary embolism Vital Signs Vital Signs: Vital Signs Pulse Rate 93 11/18/24 16:47 Respiratory Rate 18 11/18/24 16:47 Blood Pressure 111/64 11/18/24 16:47 Pulse Oximetry 88 L 11/18/24 16:47 Oxygen Delivery Room Air 11/18/24 16:47 Temperature 98.8 F 11/18/24 18:33 Pulse Rate 84 11/18/24 18:45 Respiratory Rate 18 11/18/24 18:45 Blood Pressure 102/64 11/18/24 18:30 Pulse Oximetry 95 11/18/24 18:45 Oxygen Delivery Nasal Cannula 11/18/24 17:30 Oxygen Flow Rate 2 11/18/24 17:30 Lab Data Lab results reviewed: Yes I reviewed the patient's lab results. 11/18/24 17:12 11/18/24 17:12 Labs: Lab Results 11/18/24 Range/Units 17:12 WBC 18.2 H (4.5-10.0) K/mm3 RBC 4.48 (4.2-5.4) M/mm3 Hgb 14.1 D (12.0-15.0) g/dL Hct 43.5 (37.0-47.0) % MCV 97.1 (80-100) fl MCH 31.5 (26-34) pg MCHC 32.4 (32-36) g/dl RDW 13.8 (11.5-14.5) % Plt Count 224 (150-375) k/mm3 MPV 10.6 H (7.4-10.4) fl Immature Gran % (Auto) 0.7 H (0-0.5) % Neut % (Auto) 84.7 H (45.5-73.1) % Lymph % (Auto) 6.6 L (18.3-44.2) % Sterling % (Auto) 7.4 (2.6-8.5) % Eos % (Auto) 0.2 (0-4.4) % Baso % (Auto) 0.4 (0.2-1.2) % Lymph # (Auto) 1.20 (0.9-3.2) K/mm3 Sterling # (Auto) 1.3 H (0.1-0.6) K/mm3 Eos # (Auto) 0.0 (0-0.3) K/mm3 Baso # (Auto) 0.1 (0.0-0.1) K/mm3 Abs Immat Gran (auto) 0.12 H (0.00-0.031) K/mm3 Absolute Neuts (auto) 15.5 H (1.3-6.7) K/mm3 Absolute Nucleated RBC 0.000 (0.0-0.012) K/mm3 Nucleated RBC % 0.0 (0.0-0.2) % D-Dimer 0.56 H (<0.48) ug/mL Sodium 134 L (137-145) mmol/L Potassium 4.3 (3.4-5.0) mmol/L Chloride 93 L (98-107) mmol/L Carbon Dioxide 37 H (22-30) mmol/L Anion Gap 4 (4-12) mmol/L BUN 38 H (7-17) mg/dL Creatinine 1.33 H (0.7-1.0) mg/dL Estim Creat Clear Calc 46 ml/min Estimated GFR 39 L (59 - ) Glucose 161 H (65-110) mg/dL Calcium 9.0 (8.4-10.2) mg/dL Total Bilirubin 1.1 (0.2-1.3) mg/dL AST 36 (14-36) U/L ALT 24 (6-35) U/L Alkaline Phosphatase 136 H (38-126) U/L Total Protein 7.0 (6.3-8.2) g/dL Albumin 3.5 (3.5-5.1) g/dL Imaging Data Radiologist's impression: Impressions Chest X-Ray 11/18/24 18:11 IMPRESSION: Medial right basilar atelectasis Discharge Plan Discharge Clinical Impression: Pneumonia, Hypoxia, Conjunctivitis Patient Disposition: Still a Patient Condition: Serious
[2024-11-18 17:59] LABS: D Dimer 0.56 ug/mL (<0.48)
--- NOTE | 2024-11-18 18:22 | P.HP_ITS ---
H&P: HPI History of Present Illness Date/Time: 11/18/24 18:22 Chief Complaint: Shortness of breath Narrative: 74-year-old female with chronic kidney disease stage 3, CHF, diabetes, anemia of chronic disease, and COPD presents the hospital with 2 weeks a COVID increased shortness of breath. Patient states that she lives at a long term, she cannot walk because she cannot bear her weight. She states that she got COVID about 2 weeks ago at her long term. She is normally on 2 L oxygen p.r.n. and does not need it all the time. She states over the last 2 weeks she has gotten weaker and increasingly short of breath. Now she has productive cough. Patient denies fevers or muscle aches. Leukocytosis at 18.2, sodium of 134, carbon dioxide 37, BUN of 38, a creatinine of 1.33 which is around baseline, estimated GFR 39, chest history shows based her atelectasis. Which is likely pneumonia. Blood cultures pending. Review of Systems Review of Systems: 12 systems were reviewed and are negativ e except for as per HPI. PMFSH Past Medical History Medical History Anemia of chronic disease Chronic kidney disease, stage III (moderate) Chronic midline low back pain Chronic obstructive pulmonary disease Chronic respiratory failure with hypoxia, on home oxygen therapy Closed supracondylar fracture of femur Congestive heart failure Most recent echocardiogram showed normal LV systolic function and size with an EF of 60 to 65%, grade 1 diastolic dysfunction, biatrial enlargement, and an estimated PA SP of 63 mmHg. Degenerative joint disease Depression with anxiety With history of panic attacks Diabetic polyneuropathy Diverticulosis Essential (primary) hypertension Hiatal hernia Small hiatal hernia noted on barium swallow performed due to dysphagia and sensation of globus. Of the mid distal esophagus, repeated mid distal esophageal reflux Hyperlipidemia Insulin dependent type 2 diabetes mellitus Iron deficiency anemia Irritable bowel syndrome Lung nodule Lymphedema of both lower extremities Morbid obesity Obesity hypoventilation syndrome Obstructive sleep apnea Osteoarthritis Overactive bladder With chronic urinary incontinence Beal catheter placed in the ER Polyarthritis of multiple sites Postmenopausal Recurrent UTI Renal lesion Restless leg syndrome Spondylosis Thyroid nodule Surgical History Surgical History History of colonoscopy with polypectomy Family History Family History Sibling , Sister Cancer Psychiatric illness Father Cancer Mother Cancer Son Cancer Social History Social History Social History: Surrogate medical decision maker: Code status: Full code. Smoking status: Never smoker Second hand tobacco smoke exposure: No Alcohol intake: never Alcohol use details: social Substance use: never Substance use type: marijuana Last use: 07/18/22 Do You Feel Safe in your Home?: Yes Lack of Transportation: No Lack of Food: Never True Current Housing: I Have Housing Concerned About Future Housing: No Difficulty Paying Gas/Electric Bills: No Difficulty Paying for Meds: No Currently Unemployed: No Education: Associate Degree Difficulty w/ Childcare or Family Care: No Living arrangements: long term Additional living arrangements comments: [facility]. Wheelchair- bound. Two children. Occupation/Education: retired Additional occupation/education comments: Retired [employer]. Spiritual care concerns: No Agree to blood products: Yes Meds Home Medications and Allergies Home Medications ?Medication ?Instructions ?Recorded ?Confirmed ?Type albuterol sulfate 2.5 mg/3 mL 2.5 mg (3 mL) inhalation Q4-6H PRN 01/06/22 09/29/23 Rx (0.083 %) solution for nebulization shortness of breath or wheezing #180 mL nystatin 100,000 unit/gram topical 1 applic topical BID #60 grams 05/13/22 09/29/23 Rx cream albuterol sulfate 90 mcg/actuation 2 puff inhalation BID 12/30/22 09/29/23 History aerosol inhaler allopurinol 100 mg tablet 100 mg PO BID 12/30/22 09/29/23 History apixaban 2.5 mg tablet (Eliquis) 2.5 mg PO BID 12/30/22 09/29/23 History atorvastatin 80 mg tablet 80 mg PO HS 12/30/22 09/29/23 History azelastine 0.05 % eye drops 1 drp ophthalmic (eye) BID 12/30/22 09/29/23 History benzonatate 200 mg capsule 200 mg PO Q8H PRN Cough 12/30/22 09/29/23 History buspirone 7.5 mg tablet 7.5 mg PO BID 12/30/22 09/29/23 History fluticasone propionate 50 1 spray intranasal DAILY 12/30/22 09/29/23 History mcg/actuation nasal spray,suspension gabapentin 300 mg capsule 300 mg PO TID 12/30/22 09/29/23 History insulin glargine 100 unit/mL 28 unit subcut DAILY 12/30/22 09/29/23 History subcutaneous solution insulin glargine 100 unit/mL 42 unit subcut HS 12/30/22 09/29/23 History subcutaneous solution ipratropium bromide 0.02 % 3 ml continuous nebulization Q6H 12/30/22 09/29/23 History solution for inhalation loratadine 10 mg tablet (Claritin) 10 mg PO DAILY 12/30/22 09/29/23 History mirabegron 25 mg tablet,extended 25 mg PO HS 12/30/22 09/29/23 History release 24 hr (Myrbetriq) omeprazole 20 mg capsule,delayed 20 mg PO DAILY 12/30/22 09/29/23 History release ropinirole 2 mg tablet 4 mg PO HS 12/30/22 09/29/23 History sertraline 100 mg tablet 100 mg PO DAILY 12/30/22 09/29/23 History hydrocortisone 1 % topical cream 1 applic topical BID 07/28/23 09/29/23 History ondansetron 4 mg disintegrating 4 mg PO Q6H PRN Nausea And Vomiting 07/28/23 09/29/23 History tablet dulaglutide 1.5 mg/0.5 mL 1.5 mg subcut WEEKLY 09/29/23 09/29/23 History subcutaneous pen injector (Trulicity) ferrous sulfate 325 mg (65 mg 325 mg PO DAILY 09/29/23 09/29/23 History iron) capsule,extended release nitroglycerin 0.4 mg sublingual 0.4 mg sublingual Q5M PRN Chest 09/29/23 09/29/23 History tablet Pain furosemide 40 mg tablet 40 mg PO QAM #30 tabs 10/12/23 Rx hydrocodone 5 mg-acetaminophen 325 1 tablet PO Q4H PRN Pain Rated 4-6 10/18/23 Rx mg tablet #14 tabs lidocaine 5 % topical patch 1 patch transdermal DAILY #30 ea 10/18/23 Rx (Lidoderm) Allergies Allergy/AdvReac Type Severity Reaction Status Date / Time NSAIDS (Non-Steroidal Allergy Unknown Other Verified 07/27/23 08:11 Anti-Inflamma Vital Signs Vital Signs - 24 hr 11/18/24 16:47 11/18/24 16:55 11/18/24 16:56 Temperature 100.1 F H Pulse Rate 93 87 87 Respiratory Rate 18 19 16 Blood Pressure 111/64 111/64 Pulse Oximetry 88 L 92 88 L Oxygen Delivery Room Air Oxygen Flow Rate 11/18/24 17:01 11/18/24 17:18 Temperature Pulse Rate 87 Respiratory Rate 19 Blood Pressure Pulse Oximetry 99 94 Oxygen Delivery Nasal Cannula Oxygen Flow Rate 2 Exam Narrative: General: chronically ill, appears stated age. HEENT: normocephalic, atraumatic. Mucous membranes moist. EOMI, PERRLA, bilateral sclera anicteric, no conjunctival injection. Neck supple without JVD, lymphadenopathy, or bruit. Respiratory: clear to ascultation bilaterally. No rales/rhonic/wheezes. Cardiovascular: Regular rate and rhythm, normal S1-S2 upon ascultation. No murmurs, rubs, or clicks. PMI is nondisplaced, capillary refill less than 3 second. Abdomen: Soft, round, no pulsatile masses, nondistended and nontender. No rebound, no guarding. No CVA tenderness, no hepatosplenomegaly. Bowel sounds present to all four quadrants. No high pitch or tinkling sounds, resonant to percussion. Erythema to skin folds Extremities: No cyanosis, clubbing, or edema present. Pulses are palpable 2/2. Limited range of motion. Active ROM to all four extremities. Neuro: Alert and orientated x 4. PERRLA. Cranial nerves 2-12 intact without focal deficit. Skin: Warm, dry, and intact, without rash, erythema, or lesion. Psych: pleasant, cooperative, normal speech, normal affect, no hallucinations, no dysarthia Obese H&P: Results Labs Labs: Short CBC 11/18/24 Range/Units 17:12 WBC 18.2 H (4.5-10.0) K/mm3 Hgb 14.1 D (12.0-15.0) g/dL Hct 43.5 (37.0-47.0) % Plt Count 224 (150-375) k/mm3 [facility] 11/18/24 17:12 Sodium 134 L Potassium 4.3 Chloride 93 L Carbon Dioxide 37 H BUN 38 H Creatinine 1.33 H Glucose 161 H Calcium 9.0 Liver Function 11/18/24 Range/Units 17:12 Total Bilirubin 1.1 (0.2-1.3) mg/dL AST 36 (14-36) U/L ALT 24 (6-35) U/L Alkaline Phosphatase 136 H (38-126) U/L Albumin 3.5 (3.5-5.1) g/dL Assessment and Plan Assessment and plan (1) Pneumonia: Code(s): J18.9 - Pneumonia, unspecified organism Status: Acute Assessment and Plan: Azithromycin and Rocephin Incentive spirometer Guaifenesin Wean oxygen as able (2) Chronic obstructive pulmonary disease: Code(s): J44.9 - Chronic obstructive pulmonary disease, unspecified Status: Acute Assessment and Plan: Likely COPD exacerbation Solu-Medrol x1 Daily prednisone DuoNeb (3) COVID: Code(s): U07.1 - COVID-19 Status: Acute Assessment and Plan: X2 weeks Outside window for remdesivir Supportive care (4) Acute on chronic respiratory failure with hypoxia and hypercapnia: Code(s): J96.21 - Acute and chronic respiratory failure with hypoxia; J96.22 - Acute and chronic respiratory failure with hypercapnia Status: Acute Assessment and Plan: Secondary to above 2 L oxygen p.r.n. at home (5) Conjunctivitis: Code(s): H10.9 - Unspecified conjunctivitis Status: Acute Assessment and Plan: Ciprofloxacin drops to both eyes (6) Leukocytosis: Code(s): D72.829 - Elevated white blood cell count, unspecified Status: Acute Assessment and Plan: Likely secondary to conjunctivitis and pneumonia Blood cultures pending UA pending (7) Type 2 diabetes mellitus treated with insulin: Code(s): E11.9 - Type 2 diabetes mellitus without complications; Z79.4 - alf (current) use of insulin Status: Chronic Assessment and Plan: Diabetic diet And Accu-Cheks a.c. HS Restart home insulin plus sliding scale due to steroids (8) Chronic kidney disease, stage III (moderate): Qualifiers: Chronic kidney disease stage 3 subtype: stage 3b (GFR 30-44) Qualified Code(s): N18.32 - Chronic kidney disease, stage 3b Code(s): N18.30 - Chronic kidney disease, stage 3 unspecified Status: Chronic Assessment and Plan: Avoid nephrotoxic medications (9) Essential (primary) hypertension: Code(s): I10 - Essential (primary) hypertension Status: Chronic Assessment and Plan: Restart home BP meds once verified (10) Congestive heart failure: Code(s): I50.9 - Heart failure, unspecified Status: Acute (11) Hyperlipidemia: Qualifiers: Hyperlipidemia type: mixed hyperlipidemia Qualified Code(s): E78.2 - Mixed hyperlipidemia Code(s): E78.5 - Hyperlipidemia, unspecified Status: Acute Assessment and Plan: Restart statin once verified Quality VTE Prophylaxis VTE prophylaxis: mechanical ordered and pharmacologic ordered Waiting for nurse to [facility] Advance Care Plan I have confirmed that the patient's Advanced Care Plan is present, code status is documented, or surrogate decision maker is listed in patient medical record.: Yes
[2024-11-18] MEDS: CIPROFLOXACIN HCL 0.3% OP SOLN 2.5 ML BTL 1 DROP EACH EYE ×2 (18:34→21:19)
[2024-11-18] MEDS: AZITHROMYCIN 500 MG/NS 250 ML 500 MG/250 ML BAG 250 MG IVPB (19:28)
[2024-11-18] MEDS: methylPREDNISolone SOD SUCC 125 MG VIAL IV PUSH (19:33)
[2024-11-18 20:12] LABS: Add Urine Microscopic? YES; Appearance Urine Turbid (Clear); Bacteria Urine 4+ /hpf; Bilirubin Urine Negative (Negative); Blood Urine 2+ (Negative); Color Urine Yellow (Yellow); Glucose Urine UA Negative (Negative); Ketones Urine Negative (Negative); Leukocyte Esterase Ur 3+ LEU/UL (Negative); Need Manual Microscopic Reviewed; Nitrate Urine Positive (Negative); Non Pathogenic Casts >20; Protein Urine 1+ mg/dL (Negative); RBC Urine 0-2 /hpf (0-2); Specific Grav Ur 1.029 (1.001-1.035); Squamous Epithelial Cell Urine Moderate /hpf (Few); Urobilinogen Urine 0.2 mg/dL (<2.0); WBC Urine >100 /hpf (0-3); pH Urine 5.5 (5.0-9.0)
--- NOTE | 2024-11-18 20:33 | ADMGEN ---
This patient, Delilah Ludwig, was admitted to Medical Room 345-01. Patient/family oriented to hospital policies and general routines including ID bracelet, bed and alarms, visiting hours, pain management, procedures, bathroom and other care routines, personal items, smoking policy, room service/diet, and visiting hours. Information on how to activate the Rapid Response Team has been discussed. Patient/Family are encouraged to report perceived risks to care and to ask questions if they do not understand what they are told or what they should do.
[2024-11-18] MEDS: ALBUTEROL SULFATE NEB 2.5 MG/3 ML INH INHALATION (21:01)
[2024-11-18] MEDS: IPRATROPIUM 0.5 MG/ALBUTEROL SULFATE 2.5 MG AMPUL.NEB 3 ML INHALATION (21:01)
[2024-11-18] MEDS: guaiFENesin 600 MG/DEXTROMETHORPHAN 30 MG SR TAB 12 HR 2 TAB PO (21:19)
[2024-11-18 22:00] LABS: Glucose Point of Care 160 mg/dl (65-105)
[2024-11-19] VITALS (16 sets, daily range): BP systolic 92–135; BP diastolic 59–84; PULSE 70–108; RESP 16–20; TEMP 36–36.6; O2SAT 93–95
[2024-11-19] MEDS: IPRATROPIUM 0.5 MG/ALBUTEROL SULFATE 2.5 MG AMPUL.NEB 3 ML INHALATION ×4 (01:41→19:16)
[2024-11-19] MEDS: CIPROFLOXACIN HCL 0.3% OP SOLN 2.5 ML BTL 1 DROP EACH EYE ×5 (04:27→20:18)
[2024-11-19 06:23] LABS: Basophils Percent Auto 0.1 % (0.2-1.2); Hematocrit 40.2 % (37.0-47.0); Hemoglobin 13.1 g/dL (12.0-15.0); Immature Granulocyte Absolute 0.13 K/mm3 (0.00-0.031); Immature Granulocyte Percent A 0.9 % (0-0.5); Lymphocytes Absolute Auto 0.51 K/mm3 (0.9-3.2); Lymphocytes Percent Auto 3.5 % (18.3-44.2); Mean Corpuscular HGB Conc 32.6 g/dl (32-36); Mean Corpuscular Hemoglobin 31.3 pg (26-34); Mean Corpuscular Volume 95.9 fl (80-100); Mean Platelet Volume 10.9 fl (7.4-10.4); Monocytes Absolute Auto 0.1 K/mm3 (0.1-0.6); Monocytes Percent Auto 0.8 % (2.6-8.5); Neutrophils Absolute Auto 13.7 K/mm3 (1.3-6.7); Neutrophils Percent Auto 94.7 % (45.5-73.1); Platelet Count Result 219 k/mm3 (150-375); Red Blood Count 4.19 M/mm3 (4.2-5.4); Red Cell Distribution Width 13.5 % (11.5-14.5); White Blood Count 14.5 K/mm3 (4.5-10.0)
[2024-11-19 06:34] LABS: Anion Gap 6 mmol/L (4-12); Blood Urea Nitrogen 43 mg/dL (7-17); Calcium 9.1 mg/dL (8.4-10.2); Carbon Dioxide 34 mmol/L (22-30); Chloride 95 mmol/L (98-107); Estimated CRCL calculation 49 ml/min; Estimated Glomerular Filt Rate 43; Glucose 231 mg/dL (65-110); Sodium 135 mmol/L (137-145)
[2024-11-19 08:46] LABS: Glucose Point of Care 213 mg/dl (65-105)
[2024-11-19] MEDS: guaiFENesin 600 MG/DEXTROMETHORPHAN 30 MG SR TAB 12 HR 2 TAB PO ×2 (08:49→20:10)
[2024-11-19] MEDS: predniSONE 20 MG TABLET 40 MG PO (08:49)
[2024-11-19] MEDS: ENOXAPARIN 40 MG/0.4 ML SYRINGE SUB-Q (08:50)
[2024-11-19] MEDS: INSULIN ASPART (*BKC) 100 UNITS/ML SUB-Q ×4 (08:53→20:12)
--- NOTE | 2024-11-19 09:04 | P.PNIM_ITS ---
Progress Note: A&P Assessment and Plan (1) Acute hypoxic respiratory failure: Code(s): J96.01 - Acute respiratory failure with hypoxia Status: Acute Assessment and Plan: * Chest x-ray showing medial right basilar atelectasis * Chest CTA was negative for PE, showed right lower lobe patchy atelectasis or consolidation, scattered patchy bilateral pulmonary infiltrates * WBC 18.2, temp 100.1 * Was COVID positive 2 weeks ago, recovered for a bit and now back with worsening SOB and and congestion (2) Pneumonia: Code(s): J18.9 - Pneumonia, unspecified organism Status: Acute Assessment and Plan: * Chest x-ray showing medial right basilar atelectasis * Chest CTA was negative for PE, showed right lower lobe patchy atelectasis or consolidation, scattered patchy bilateral pulmonary infiltrates * Continue Rocephin and azithromycin * Continue DuoNebs * Continue to wean O2 for sat greater than 92% * Continue prednisone (3) COVID: Code(s): U07.1 - COVID-19 Status: Acute Assessment and Plan: * Patient had COVID 2 weeks ago recovered and now is back with shortness of breath (4) Chronic obstructive pulmonary disease: Code(s): J44.9 - Chronic obstructive pulmonary disease, unspecified Status: Acute Assessment and Plan: * Continue DuoNebs * Continue to wean O2 for an oxygen saturation greater than 92%. (5) Conjunctivitis: Code(s): H10.9 - Unspecified conjunctivitis Status: Acute Assessment and Plan: * Ciprofloxacin eyedrops ordered (6) Congestive heart failure: Code(s): I50.9 - Heart failure, unspecified Status: Acute Assessment and Plan: * Continue Lasix (7) Type 2 diabetes mellitus treated with insulin: Code(s): E11.9 - Type 2 diabetes mellitus without complications; Z79.4 - long term (current) use of insulin Status: Chronic Assessment and Plan: * Blood sugars ranging 160-231 * Hgb A1C 7.7 on 12/31/2022 * Will repeat hemoglobin A1c * Accu checks AC/HS * High-dose SSI ordered * hypoglycemic protocol in place * Diabetic diet ordered (8) Chronic kidney disease, stage III (moderate): Qualifiers: Chronic kidney disease stage 3 subtype: stage 3b (GFR 30-44) Qualified Code(s): N18.32 - Chronic kidney disease, stage 3b Code(s): N18.30 - Chronic kidney disease, stage 3 unspecified Status: Chronic Assessment and Plan: * Creatinine initially 1.33 now down to 1.23, EGFR initially 39 now up to 43 * Baseline appears to be creatinine 1.0-1.4 and EGFR 37-55 * Patient is currently at her baseline * Continue to trend (9) Hyperlipidemia: Qualifiers: Hyperlipidemia type: mixed hyperlipidemia Qualified Code(s): E78.2 - Mixed hyperlipidemia Code(s): E78.5 - Hyperlipidemia, unspecified Status: Acute Assessment and Plan: * Continue atorvastatin Time Spent With Patient Time with patient: Greater than 35 minutes Subjective Date/time seen: 11/19/24 09:04 Interval history: Interval summary: This is a 74-year-old female with a significant past medical history of who presented to the hospital with shortness of breath and hypoxia. Patient just was diagnosed with COVID approximately 2 weeks ago, recovered and now is starting to develop worsening congestion and shortness of breath with low-grade fever. Workup in the hospital included a chest x-ray which showed medial right basilar atelectasis. Chest CTA was negative for PE, showed right lower lobe patchy atelectasis and/or consolidation, scattered ground-glass infiltrates. Initial labs shown a white blood cell count on arrival was 18.2, D-dimer 0.56, sodium 134, chloride 93, creatinine 1.33, EGFR 39, blood sugars ranging 160-231, alkaline phosphate 136. A UA was obtained which showed turbid urine appearance, 1+ urine protein, 2+ urine blood, positive nitrate, 3+ leukocytes, greater than 100 urine WBC, moderate urine squamous epithelial cells, 4+ bacteria, greater than 20 urine cast. Blood and urine cultures were obtained and pending. EKG showed sinus rhythm with incomplete right bundle branch block, rate of 89, QTC 470. Patient was given Rocephin, azithromycin, Solu-Medrol 125 mg IV push, albuterol nebulizer, and Tylenol while in the ED. Summary: Patient reports productive cough and burning/pain in bilateral eyes. Her conjunctiva and sclera are red and injected with tearing. Labs reviewed. Review of Systems Review of Systems: All systems reviewed & are unremarkable except as noted in HPI and below Exam Narrative: General: In no acute distress, well nourished Head: atraumatic, no encephalopathy Eyes: PERRLA, sclera injected, conjunctiva red and irritated ENT: moist mucous membranes, nasal passages clear Neck: supple, no JVD, no adenopathy, trachea midline Cardiac: Normal S1 and S2. No murmur, gallops or friction rubs, peripheral pulses intact. Respiratory: Course with Rhonchi left > right, no adventitious lung sounds, currently on 1.5L NC, reports productive cough Gastrointestinal: soft, non-distended, non-tender, normoactive bowel sounds. : voiding without difficulty. Extremities: moves all extremities well, mild lower extremity edema Skin: clean, dry, intact. No wounds or lesions. Neuro: Alert and oriented x3, cranial nerves intact, no neuro deficits. Psych: normal mood, normal affect, interactive Objective Data Vital Signs Vital Signs: Vital Signs - 24 hr 11/18/24 16:47 11/18/24 16:55 11/18/24 16:56 Temperature 100.1 F H Pulse Rate 93 87 87 Respiratory Rate 18 19 16 Blood Pressure 111/64 111/64 Pulse Oximetry 88 L 92 88 L Oxygen Delivery Room Air Oxygen Flow Rate 11/18/24 17:01 11/18/24 17:18 11/18/24 17:30 Temperature Pulse Rate 87 Respiratory Rate 19 Blood Pressure Pulse Oximetry 99 94 95 Oxygen Delivery Nasal Cannula Nasal Cannula Oxygen Flow Rate 2 2 11/18/24 17:45 11/18/24 18:30 11/18/24 18:33 Temperature 98.8 F Pulse Rate 88 86 Respiratory Rate 15 17 Blood Pressure 102/64 Pulse Oximetry 93 95 Oxygen Delivery Oxygen Flow Rate 11/18/24 18:33 11/18/24 18:45 11/18/24 21:01 Temperature 98.8 F Pulse Rate 84 83 Respiratory Rate 18 18 Blood Pressure Pulse Oximetry 95 93 Oxygen Delivery Nasal Cannula Oxygen Flow Rate 2 11/18/24 22:56 11/19/24 00:00 11/19/24 04:00 Temperature 97.1 F L Pulse Rate 92 72 70 Respiratory Rate 16 Blood Pressure 104/69 Pulse Oximetry 93 Oxygen Delivery Oxygen Flow Rate 11/19/24 06:00 11/19/24 08:20 Temperature 96.8 F L Pulse Rate 79 76 Respiratory Rate 16 Blood Pressure 135/79 Pulse Oximetry 93 Oxygen Delivery Oxygen Flow Rate Intake/Output Intake/Output: Intake & Output 11/16/24 11/17/24 11/18/24 11/19/24 23:59 23:59 23:59 23:59 Intake Total 50 120 Balance 50 120 Meds/Results Medications: Active Medications Generic Name Dose Route Start Last Admin Trade Name Freq PRN Reason Stop Dose Admin Acetaminophen 650 mg 11/18/24 18:55 Acetaminophen 325 Mg Tablet PO Q4H PRN Mild Pain (1-3) or Fever Albuterol/Ipratropium 3 ml 11/18/24 20:00 11/19/24 01:41 Ipratropium 0.5 Mg/Albuterol Sulfate 2.5 Mg Ampul.Neb 3 Ml INHALATION 3 ml Q6HRT ANAM Administration Albuterol/Ipratropium 3 ml 11/18/24 18:55 Ipratropium 0.5 Mg/Albuterol Sulfate 2.5 Mg Ampul.Neb 3 Ml INHALATION Q6HRT PRN Shortness Of Breath Or Wheezing Ciprofloxacin 1 drop 11/18/24 17:55 11/19/24 08:50 Ciprofloxacin Hcl 0.3% Op Soln 2.5 Ml Btl EACH EYE 1 drop Q4HR ANAM Administration Dextrose 12.5 gm 11/18/24 20:52 Dextrose 50% 25 Gm/50 Ml Syringe IV PUSH PRN PRN Hypoglycemia Protocol Docusate Sodium 100 mg 11/18/24 18:55 Docusate Sodium 100 Mg Capsule PO BID PRN Abdominal Distention Enoxaparin Sodium 40 mg 11/19/24 09:00 11/19/24 08:50 Enoxaparin 40 Mg/0.4 Ml Syringe SUB-Q 40 mg DAILY ANAM Administration Glucagon 1 mg 11/18/24 20:52 Glucagon For Inj 1 Mg Vial IM PRN PRN Hypoglycemia Protocol Glucose 15 gm 11/18/24 20:52 Glucose Oral Gel 15 Gm Of Glucse In 37.5 Gm Tube PO PRN PRN Hypoglycemia Protocol Guaifenesin/Dextromethorphan 2 tab 11/18/24 21:00 11/19/24 08:49 Guaifenesin 600 Mg/Dextromethorphan 30 Mg Sr Tab 12 Hr PO 2 tab Q12HR ANAM Administration Ceftriaxone Sodium 1 gm in 50 mls @ 100 mls/hr 11/19/24 18:00 Rocephin 1 Gm/Ns 50 Ml IVPB Q24H ANAM Azithromycin 500 mg in 250 mls @ 250 mls/hr 11/19/24 23:00 Zithromax IVPB Q24H ANAM Dextrose 1,000 mls @ 100 mls/hr 11/18/24 20:52 Dextrose 5% 1,000 Ml IVPB PRN PRN Hypoglycemia Protocol Insulin Aspart 2 - 4 units 11/18/24 21:00 11/18/24 22:22 Insulin Aspart (*Bkc) 100 Units/Ml SUB-Q Not Given HS ANAM Protocol Insulin Aspart 4 - 8 units 11/19/24 08:00 11/19/24 08:53 Insulin Aspart (*Bkc) 100 Units/Ml SUB-Q 4 units TIDWM [facility] Administration Protocol Prednisone 40 mg 11/19/24 08:00 11/19/24 08:49 Prednisone 20 Mg Tablet PO 11/24/24 07:59 40 mg DAILY@0800 [facility] Administration Radiology Results: ITS Impressions Chest X-Ray 11/18/24 18:11 IMPRESSION: Medial right basilar atelectasis Chest CTA 11/18/24 18:31 IMPRESSION: No CT evidence of pulmonary embolism Right lower lobe patchy atelectasis/or consolidation Scattered patchy bilateral pulmonary infiltrate and/or atelectasis Labs Labs: Laboratory Results - last 24 hr 11/18/24 11/18/24 11/18/24 17:12 19:58 21:56 WBC 18.2 H RBC 4.48 Hgb 14.1 D Hct 43.5 MCV 97.1 MCH 31.5 MCHC 32.4 RDW 13.8 Plt Count 224 MPV 10.6 H Immature Gran % (Auto) 0.7 H Neut % (Auto) 84.7 H Lymph % (Auto) 6.6 L [place] % (Auto) 7.4 Eos % (Auto) 0.2 Baso % (Auto) 0.4 Lymph # (Auto) 1.20 [place] # (Auto) 1.3 H Eos # (Auto) 0.0 Baso # (Auto) 0.1 Abs Immat Gran (auto) 0.12 H Absolute Neuts (auto) 15.5 H Absolute Nucleated RBC 0.000 Nucleated RBC % 0.0 D-Dimer 0.56 H Sodium 134 L Potassium 4.3 Chloride 93 L Carbon Dioxide 37 H Anion Gap 4 BUN 38 H Creatinine 1.33 H Estim Creat Clear Calc 46 Estimated GFR 39 L Glucose 161 H POC Capillary Glucose 160 H Calcium 9.0 Total Bilirubin 1.1 AST 36 ALT 24 Alkaline Phosphatase 136 H Total Protein 7.0 Albumin 3.5 Urine Color Yellow Urine Appearance Turbid H Urine pH 5.5 Ur Specific [place] 1.029 Urine Protein 1+ H Urine Glucose (UA) Negative Urine Ketones Negative Ur Blood (Man) 2+ H Urine Nitrate Positive H Urine Bilirubin Negative Urine Urobilinogen 0.2 Add Ur Microanalysis Reviewed Leukocyte Esterase Rfl 3+ H Urine RBC 0-2 Urine WBC >100 H Ur Squamous Epith Cells Moderate Urine Bacteria 4+ H Urine Casts >20 11/19/24 11/19/24 06:12 08:40 WBC 14.5 H RBC 4.19 L Hgb 13.1 Hct 40.2 MCV 95.9 MCH 31.3 MCHC 32.6 RDW 13.5 Plt Count 219 MPV 10.9 H Immature Gran % (Auto) 0.9 H Neut % (Auto) 94.7 H Lymph % (Auto) 3.5 L [place] % (Auto) 0.8 L Eos % (Auto) 0.0 Baso % (Auto) 0.1 L Lymph # (Auto) 0.51 L [place] # (Auto) 0.1 Eos # (Auto) 0.0 Baso # (Auto) 0.0 Abs Immat Gran (auto) 0.13 H Absolute Neuts (auto) 13.7 H Absolute Nucleated RBC 0.000 Nucleated RBC % 0.0 D-Dimer Sodium 135 L Potassium 4.0 Chloride 95 L Carbon Dioxide 34 H Anion Gap 6 BUN 43 H Creatinine 1.23 H Estim Creat Clear Calc 49 Estimated GFR 43 L Glucose 231 H POC Capillary Glucose 213 H Calcium 9.1 Total Bilirubin AST ALT Alkaline Phosphatase Total Protein Albumin Urine Color Urine Appearance Urine pH Ur Specific [place] Urine Protein Urine Glucose (UA) Urine Ketones Ur Blood (Man) Urine Nitrate Urine Bilirubin Urine Urobilinogen Add Ur Microanalysis Leukocyte Esterase Rfl Urine RBC Urine WBC Ur Squamous Epith Cells Urine Bacteria Urine Casts Quality VTE Prophylaxis VTE prophylaxis: mechanical ordered and pharmacologic ordered
[2024-11-19] MEDS: FERROUS SULFATE 325 MG TABLET DR BY MOUTH (10:40)
[2024-11-19] MEDS: allopurinoL 100 MG TABLET PO ×2 (10:40→17:39)
[2024-11-19] MEDS: APIXABAN 2.5 MG TABLET PO ×2 (10:40→20:10)
[2024-11-19] MEDS: LORATADINE 10 MG TABLET PO (10:40)
[2024-11-19] MEDS: SERTRALINE HCL 50 MG TABLET 150 MG PO (10:40)
[2024-11-19] MEDS: FLUTICASONE PROPIONATE 0.05% NA SPR 16 GM BTL (*BKC) 1 SPRAY NASAL (10:42)
--- NOTE | 2024-11-19 10:58 | PC.NURSE ---
late entry note: this RN performed straight catheterization on 11/18/2024 at 2030 in ED. This took 2 attempts and 200ml of urine were voided for urinalysis.
[2024-11-19 11:10] LABS: Hemoglobin A1C 5.4 % (<5.7)
[2024-11-19 11:52] LABS: Glucose Point of Care 278 mg/dl (65-105)
[2024-11-19] MEDS: GABAPENTIN 300 MG CAPSULE PO ×2 (12:21→17:38)
[2024-11-19 17:17] LABS: Glucose Point of Care 208 mg/dl (65-105)
[2024-11-19] MEDS: FUROSEMIDE 40 MG TABLET 80 MG PO (17:38)
[2024-11-19] MEDS: rOPINIRole HCL 1 MG TABLET 4 MG PO (20:09)
[2024-11-19] MEDS: busPIRone HCL 2.5 MG TABLET PO (20:10)
[2024-11-19] MEDS: MIRABEGRON 25 MG ER TABLET PO (20:10)
[2024-11-19] MEDS: busPIRone HCL 5 MG TABLET PO (20:10)
[2024-11-19] MEDS: ATORVASTATIN 40 MG TABLET 80 MG PO (20:10)
[2024-11-19] MEDS: AZITHROMYCIN 500 MG/NS 250 ML 500 MG/250 ML BAG 250 MG IVPB (23:31)
[2024-11-20] VITALS (15 sets, daily range): BP systolic 107–128; BP diastolic 65–68; PULSE 79–95; RESP 16–20; TEMP 36.1–36.9; O2SAT 93–97
[2024-11-20] MEDS: CIPROFLOXACIN HCL 0.3% OP SOLN 2.5 ML BTL 1 DROP EACH EYE ×6 (00:38→20:14)
[2024-11-20] MEDS: IPRATROPIUM 0.5 MG/ALBUTEROL SULFATE 2.5 MG AMPUL.NEB 3 ML INHALATION ×4 (01:16→21:08)
[2024-11-20 06:46] LABS: Glucose Point of Care 294 mg/dl (65-105)
[2024-11-20 08:17] LABS: Glucose Point of Care 151 mg/dl (65-105)
[2024-11-20] MEDS: busPIRone HCL 5 MG TABLET PO ×2 (08:42→20:15)
[2024-11-20] MEDS: FERROUS SULFATE 325 MG TABLET DR BY MOUTH (08:42)
[2024-11-20] MEDS: FUROSEMIDE 40 MG TABLET 80 MG PO ×2 (08:42→17:33)
[2024-11-20] MEDS: SERTRALINE HCL 50 MG TABLET 150 MG PO (08:42)
[2024-11-20] MEDS: predniSONE 20 MG TABLET 40 MG PO (08:42)
[2024-11-20] MEDS: busPIRone HCL 2.5 MG TABLET PO ×2 (08:43→20:15)
[2024-11-20] MEDS: guaiFENesin 600 MG/DEXTROMETHORPHAN 30 MG SR TAB 12 HR 2 TAB PO ×2 (08:43→20:15)
[2024-11-20] MEDS: allopurinoL 100 MG TABLET PO ×2 (08:43→17:32)
[2024-11-20] MEDS: FLUTICASONE PROPIONATE 0.05% NA SPR 16 GM BTL (*BKC) 1 SPRAY NASAL (08:43)
[2024-11-20] MEDS: APIXABAN 2.5 MG TABLET PO ×2 (08:43→20:15)
[2024-11-20] MEDS: GABAPENTIN 300 MG CAPSULE PO ×3 (08:43→17:32)
[2024-11-20] MEDS: LORATADINE 10 MG TABLET PO (08:43)
--- NOTE | 2024-11-20 09:22 | P.CDI_ITS ---
CDI Query Clarification Request CHF has been documented Please specify type and acuity of heart failure if known. * Acute * Chronic * Acute on Chronic * Unknown * Systolic * Diastolic * Combined Systolic and Diastolic * Unknown The chart reflects the following: (6) Congestive heart failure: Code(s): I50.9 - Heart failure, unspecified Status: Acute Assessment and Plan: * Continue Lasix <Winsome Cardenas RN - Last Filed: 11/20/24 09:24> Clarified Diagnosis Clarified Diagnosis: Chronic diastolic CHF <Christie Isaac APRN - Last Filed: 11/20/24 12:34>
--- NOTE | 2024-11-20 09:22 | WPDCDIQUERY2 ---
CDI Query Clarification Request CHF has been documented Please specify type and acuity of heart failure if known. Acute Chronic Acute on Chronic Unknown Systolic Diastolic Combined Systolic and Diastolic Unknown The chart reflects the following: (6) Congestive heart failure: Code(s): I50.9 - Heart failure, unspecified Status: Acute Assessment and Plan: Continue Lasix <Winsome Cardenas RN - Last Filed: 11/20/24 09:24> Clarified Diagnosis Clarified Diagnosis: Chronic diastolic CHF <Christie Isaac APRN - Last Filed: 11/20/24 12:34>
[2024-11-20 10:24] LABS: Basophils Percent Auto 0.2 % (0.2-1.2); Hematocrit 39.5 % (37.0-47.0); Hemoglobin 12.8 g/dL (12.0-15.0); Immature Granulocyte Absolute 0.13 K/mm3 (0.00-0.031); Lymphocytes Absolute Auto 0.81 K/mm3 (0.9-3.2); Lymphocytes Percent Auto 6.2 % (18.3-44.2); Mean Corpuscular HGB Conc 32.4 g/dl (32-36); Mean Corpuscular Hemoglobin 30.8 pg (26-34); Mean Corpuscular Volume 95.2 fl (80-100); Mean Platelet Volume 10.6 fl (7.4-10.4); Monocytes Absolute Auto 0.7 K/mm3 (0.1-0.6); Monocytes Percent Auto 5.2 % (2.6-8.5); Neutrophils Absolute Auto 11.4 K/mm3 (1.3-6.7); Neutrophils Percent Auto 87.4 % (45.5-73.1); Platelet Count Result 268 k/mm3 (150-375); Red Blood Count 4.15 M/mm3 (4.2-5.4); Red Cell Distribution Width 13.6 % (11.5-14.5); White Blood Count 13.1 K/mm3 (4.5-10.0)
[2024-11-20 10:45] LABS: Alanine Aminotransferase 31 U/L (6-35); Albumin Level 3.1 g/dL (3.5-5.1); Alkaline Phosphatase 129 U/L (38-126); Anion Gap 9 mmol/L (4-12); Aspartate Amino Transferase 49 U/L (14-36); Bilirubin,Total 0.5 mg/dL (0.2-1.3); Blood Urea Nitrogen 49 mg/dL (7-17); Calcium 8.6 mg/dL (8.4-10.2); Carbon Dioxide 31 mmol/L (22-30); Chloride 94 mmol/L (98-107); Estimated CRCL calculation 41 ml/min; Estimated Glomerular Filt Rate 34; Glucose 194 mg/dL (65-110); Potassium 3.7 mmol/L (3.4-5.0); Sodium 134 mmol/L (137-145)
[2024-11-20 12:32] LABS: Glucose Point of Care 203 mg/dl (65-105)
[2024-11-20] MEDS: INSULIN ASPART (*BKC) 100 UNITS/ML SUB-Q ×3 (12:59→20:55)
--- NOTE | 2024-11-20 16:07 | P.DS_ITS ---
DS: Admitting Diagnosis Discharge Date 11/20/24 Admitting Diagnosis Pneumonia COPD COVID Acute on chronic respiratory failure with hypoxia and hypercapnia Conjunctivitis Leukocytosis Type 2 diabetes mellitus Hypertension CHF DS: Discharge Diagnosis Discharge Diagnosis (1) Acute hypoxic respiratory failure: Code(s): J96.01 - Acute respiratory failure with hypoxia Status: Acute (2) Pneumonia: Code(s): J18.9 - Pneumonia, unspecified organism Status: Acute (3) COVID: Code(s): U07.1 - COVID-19 Status: Acute (4) Chronic obstructive pulmonary disease: Code(s): J44.9 - Chronic obstructive pulmonary disease, unspecified Status: Acute (5) Conjunctivitis: Code(s): H10.9 - Unspecified conjunctivitis Status: Acute (6) Congestive heart failure: Code(s): I50.9 - Heart failure, unspecified Status: Acute (7) Type 2 diabetes mellitus treated with insulin: Code(s): E11.9 - Type 2 diabetes mellitus without complications; Z79.4 - senior care (current) use of insulin Status: Chronic (8) Chronic kidney disease, stage III (moderate): Qualifiers: Chronic kidney disease stage 3 subtype: stage 3b (GFR 30-44) Qualified Code(s): N18.32 - Chronic kidney disease, stage 3b Code(s): N18.30 - Chronic kidney disease, stage 3 unspecified Status: Chronic (9) Hyperlipidemia: Qualifiers: Hyperlipidemia type: mixed hyperlipidemia Qualified Code(s): E78.2 - Mixed hyperlipidemia Code(s): E78.5 - Hyperlipidemia, unspecified Status: Acute DS: Summary Hospital Course Reason for hospitalization: Pneumonia COPD COVID Acute on chronic respiratory failure with hypoxia and hypercapnia Conjunctivitis Leukocytosis Type 2 diabetes mellitus Hypertension CHF Hospital Course: This is a 74-year-old female with a significant past medical history of who presented to the hospital with shortness of breath and hypoxia. Patient just was diagnosed with COVID approximately 2 weeks ago, recovered and now is starting to develop worsening congestion and shortness of breath with low-grade fever. Workup in the hospital included a chest x-ray which showed medial right basilar atelectasis. Chest CTA was negative for PE, showed right lower lobe patchy atelectasis and/or consolidation, scattered ground-glass infiltrates. Initial labs shown a white blood cell count on arrival was 18.2, D-dimer 0.56, sodium 134, chloride 93, creatinine 1.33, EGFR 39, blood sugars ranging 160-231, alkaline phosphate 136. A UA was obtained which showed turbid urine appearance, 1+ urine protein, 2+ urine blood, positive nitrate, 3+ leukocytes, greater than 100 urine WBC, moderate urine squamous epithelial cells, 4+ bacteria, greater than 20 urine cast. Blood and urine cultures were obtained and pending. EKG showed sinus rhythm with incomplete right bundle branch block, rate of 89, QTC 470. Patient was given Rocephin, azithromycin, Solu-Medrol 125 mg IV push, albuterol nebulizer, and Tylenol while in the ED. She was transitioned to Levaquin. Blood cultures showing no growth to date on preliminary read. Urine culture pending. She is currently on 2L NC and feeling much better than when she came in. She is stable for discharge at this time. She will need to finish steroid taper, antibiotics, and then follow up with her PCP in 1 week. We will continue to follow cultures. Final diagnosis: Community-acquired pneumonia, COPD exacerbation acute on chronic respiratory failure with hypoxia, conjunctivitis Status at Discharge Cognitive/behavioral status at discharge: Alert oriented x3 Functional status at discharge: wheelchair bound Overall status at discharge: patient is progressing back to baseline Time Spent with Patient Time attestation: Total time spent providing and/or coordinating discharge services: Time spent: Greater than 30 minutes Exam Narrative: General: In no acute distress, well nourished Cardiac: Normal S1 and S2. No murmur, gallops or friction rubs, peripheral pulses intact. Respiratory: Lung sounds are clear, no adventitious lung sounds, currently on 2 L NC, reports productive cough, no acute respiratory distress or use of accessory muscles seen Gastrointestinal: soft, non-distended, non-tender, normoactive bowel sounds. : voiding without difficulty. Neuro: Alert and oriented x3 DS: Data Data Completed and Pending Completed studies during hospitalization: Chest CTA Chest x-ray Pending studies at discharge: Blood and urine cultures Labs on day of discharge: Labs from last 24 hours 11/20/24 11/20/24 11/20/24 12:25 10:17 07:54 WBC 13.1 H RBC 4.15 L Hgb 12.8 Hct 39.5 MCV 95.2 MCH 30.8 MCHC 32.4 RDW 13.6 Plt Count 268 MPV 10.6 H Immature Gran % (Auto) 1.0 H Neut % (Auto) 87.4 H Lymph % (Auto) 6.2 L [place] % (Auto) 5.2 Eos % (Auto) 0.0 Baso % (Auto) 0.2 Lymph # (Auto) 0.81 L [place] # (Auto) 0.7 H Eos # (Auto) 0.0 Baso # (Auto) 0.0 Abs Immat Gran (auto) 0.13 H Absolute Neuts (auto) 11.4 H Absolute Nucleated RBC 0.000 Nucleated RBC % 0.0 Sodium 134 L Potassium 3.7 Chloride 94 L Carbon Dioxide 31 H Anion Gap 9 BUN 49 H Creatinine 1.49 H Estim Creat Clear Calc 41 Estimated GFR 34 L Glucose 194 H POC Capillary Glucose 203 H 151 H Calcium 8.6 Total Bilirubin 0.5 AST 49 H ALT 31 Alkaline Phosphatase 129 H Total Protein 6.0 L Albumin 3.1 L 11/19/24 11/19/24 20:10 17:11 WBC RBC Hgb Hct MCV MCH MCHC RDW Plt Count MPV Immature Gran % (Auto) Neut % (Auto) Lymph % (Auto) [place] % (Auto) Eos % (Auto) Baso % (Auto) Lymph # (Auto) [place] # (Auto) Eos # (Auto) Baso # (Auto) Abs Immat Gran (auto) Absolute Neuts (auto) Absolute Nucleated RBC Nucleated RBC % Sodium Potassium Chloride Carbon Dioxide Anion Gap BUN Creatinine Estim Creat Clear Calc Estimated GFR Glucose POC Capillary Glucose 294 H 208 H Calcium Total Bilirubin AST ALT Alkaline Phosphatase Total Protein Albumin Preliminary micro results at discharge 11/18/24 17:37 Blood Culture - Preliminary Blood 11/18/24 17:36 Blood Culture - Preliminary Blood Procedures/Treatments: none Discharge Plan Discharge Attending physician on discharge: Misael Waldrop Discharging Clinician: Christie Isaac Anticipated Discharge Date/Time: 11/20/24 15:59 Patient Disposition: [facility] Activity: as tolerated Diet: as tolerated and diabetic Discharge Instructions: * Continue to wean O2 for sat greater than 92% * Continue prednisone taper until finished * Continue antibiotics even if your feeling better * Follow-up with your primary care doctor in 1 week. Patient Instructions: Antibiotic Form, Apixaban (By mouth) Patient Language: [place] Stand Alone Forms: General Discharge Information, Long-Term Discharge Follow-up/Referrals: Hakan Hicks MD [Physician] - Discharge Medications: New ciprofloxacin HCl 0.3 % Drops 1 drp EACH EYE Q4HR Qty: 1 0RF prednisone 10 mg tablet 10 mg PO DIRECTED Qty: 20 0RF Rx Instructions: see taper instructions Take 40mg (4 tabs) for next 2 days, Then decrease to 30 mg (3 tabs) for next 2 days, Then decrease to 20 mg (2 tabs) for next 2 days, Then decrease to 10 mg ( 1 tab) for next 2 days, Then discontinue use levofloxacin 750 mg tablet 750 mg PO Q48H 7 Days Qty: 4 0RF Continued albuterol sulfate 2.5 mg /3 mL (0.083 %) solution for nebulization 2.5 mg inhalation Q4-6H PRN (Reason: shortness of breath or wheezing) Qty: 180 3RF hydrocortisone 1 % cream 1 applic topical BID Rx Instructions: Left forearm apply each shift and prn itching ondansetron 4 mg tablet,disintegrating 4 mg PO Q6H PRN (Reason: Nausea And Vomiting) atorvastatin 80 mg tablet 80 mg PO HS Rx Instructions: TAKE 1 TABLET BY MOUTH EVERY DAY azelastine 0.05 % drops 1 drp ophthalmic (eye) BID Rx Instructions: INSTILL 1 DROP INTO EACH EYE TWICE A DAY sertraline 100 mg tablet 150 mg PO DAILY Rx Instructions: TAKE 1 TABLET BY MOUTH EVERY DAY allopurinol 100 mg tablet 100 mg PO BID Rx Instructions: TAKE 1 TABLET BY MOUTH TWICE A DAY ropinirole 2 mg tablet 4 mg PO HS gabapentin 300 mg capsule 300 mg PO TID Rx Instructions: TAKE 1 CAPSULE BY MOUTH THREE TIMES A DAY albuterol sulfate 90 mcg/actuation HFA aerosol inhaler 2 puff inhalation BID Rx Instructions: TAKE 2 INHALATIONS TWICE A DAY fluticasone propionate 50 mcg/actuation spray,suspension 1 spray intranasal DAILY Rx Instructions: INSTILL ONE SPRAY IN EACH NOSTRIL EVERY DAY (BULK) mirabegron [Myrbetriq] 25 mg tablet extended release 24 hr 25 mg PO HS Rx Instructions: TAKE ONE TABLET (25MG) BY MOUTH DAILY (VIAL) ipratropium bromide 0.02 % solution 3 ml continuous nebulization Q6H Rx Instructions: INHALE 1 VIAL IN NEBULIZER EVERY 6 HOURS insulin glargine 100 unit/mL Solution 28 unit SUBCUT DAILY Rx Instructions: 28 units in am insulin glargine 100 unit/mL Solution 42 unit SUBCUT HS benzonatate 200 mg Capsule 200 mg PO Q8H PRN (Reason: Cough) buspirone 7.5 mg Tablet 7.5 mg PO BID omeprazole 20 mg Capsule,Delayed Release(Dr/Ec) 20 mg PO DAILY loratadine [Claritin] 10 mg Tablet 10 mg PO DAILY Eliquis 2.5 mg Tablet 2.5 mg PO BID ferrous sulfate 325 mg (65 mg iron) Capsule, Extended Release 325 mg PO DAILY nitroglycerin 0.4 mg Tablet, Sublingual 0.4 mg SUBLINGUAL Q5M PRN (Reason: Chest Pain) Rx Instructions: do not exceed 3 doses per episode ipratropium-albuterol 0.5 mg-3 mg(2.5 mg base)/3 mL solution for nebulization 3 ml INHALATION TID PRN (Reason: shortness of breath or wheezing) tramadol 50 mg tablet 50 mg PO Q8H PRN (Reason: pain) potassium chloride 20 mEq tablet,ER particles/crystals 20 meq PO BID nystatin 100,000 unit/gram powder 1 applic TOPICAL BID PRN (Reason: skin irritation) Rx Instructions: apply to groin Breedytri Aerosphere 160-9-4.8 mcg/actuation HFA aerosol inhaler 2 inh INHALATION BID loperamide [Anti-Diarrheal (loperamide)] 2 mg capsule 2 mg PO Q6H PRN (Reason: loose stool) furosemide 40 mg Tablet 80 mg PO BID nystatin 100,000 unit/gram cream 1 applic topical BID Qty: 60 3RF Rx Instructions: apply to groin Date of admission: 11/19/24 07:46 Primary Care Provider: Tyron Morgan Admitting Provider: Rene Lerner Attending physician on admission: Rene Lerner Condition: Improved Quality VTE Prophylaxis VTE prophylaxis: mechanical ordered and pharmacologic ordered Hospitalist MIPS Heart Failure (Exclusion) Patient has history of Heart Transplant or Left Ventricular Assistive Device?: No IF YES, STOP HERE Heart Failure (Qualifier) Patient has current or prior documentation of LVEF less than or equal to 40%, or mod/servere depressed LVSF?: No IF NO, STOP HERE
[2024-11-20 17:33] LABS: Glucose Point of Care 228 mg/dl (65-105)
[2024-11-20] MEDS: AZITHROMYCIN 250 MG TABLET 500 MG PO (20:14)
[2024-11-20] MEDS: rOPINIRole HCL 1 MG TABLET 4 MG PO (20:14)
[2024-11-20] MEDS: MIRABEGRON 25 MG ER TABLET PO (20:15)
[2024-11-20] MEDS: ATORVASTATIN 40 MG TABLET 80 MG PO (20:15)
[2024-11-20] MEDS: AMOXICILLIN/CLAVULANATE K 875-125 MG TAB 1 TABLET PO (20:15)
--- NOTE | 2024-11-21 02:50 | PCRCNOTE ---
Patient asked not to bewaken up for 0200 [place].
[2024-11-21] MEDS: CIPROFLOXACIN HCL 0.3% OP SOLN 2.5 ML BTL 1 DROP EACH EYE (04:34)
[2024-11-21 04:48] VITALS: BP 137/62; PULSE 85; RESP 18; TEMP 36.3; O2SAT 96
[2024-11-21 06:43] LABS: Glucose Point of Care 231 mg/dl (65-105)
== END 2024-11-21 08:05 | DRG 194 ==
LOC: ANHED 18:20 → ANH3MEDSUR 19:08 → ANH3MED 19:16
PROVIDERS: Nurse Practitioner Gerontology; Admitting Provider Internal Medicine; Emergency Provider Emergency Medicine; PCP Hospitalist; Visit Provider Nurse Practitioner Acute Care
DX: J18.9 Pneumonia, unspecified organism (principal); E66.2 Morbid (severe) obesity with alveolar hypoventilation; I13.0 Hypertensive heart and chronic kidney disease with heart failure and stage 1 through stage 4 chronic kidney disease, or unspecified chronic kidney disease; I50.32 Chronic diastolic (congestive) heart failure; J96.11 Chronic respiratory failure with hypoxia; J44.0 Chronic obstructive pulmonary disease with (acute) lower respiratory infection; N18.30 Chronic kidney disease, stage 3 unspecified; I89.0 Lymphedema, not elsewhere classified; D63.8 Anemia in other chronic diseases classified elsewhere; D50.9 Iron deficiency anemia, unspecified; E11.22 Type 2 diabetes mellitus with diabetic chronic kidney disease; E11.42 Type 2 diabetes mellitus with diabetic polyneuropathy; E78.5 Hyperlipidemia, unspecified; E04.1 Nontoxic single thyroid nodule; K44.9 Diaphragmatic hernia without obstruction or gangrene; K57.30 Diverticulosis of large intestine without perforation or abscess without bleeding; N32.81 Overactive bladder; M47.9 Spondylosis, unspecified; M19.90 Unspecified osteoarthritis, unspecified site; M54.50 Low back pain, unspecified; G89.29 Other chronic pain; G25.81 Restless legs syndrome; H10.9 Unspecified conjunctivitis; Z86.16 Personal history of COVID-19; F41.9 Anxiety disorder, unspecified; F32.A Depression, unspecified; Z79.01 Long term (current) use of anticoagulants; Z79.4 Long term (current) use of insulin; Z99.81 Dependence on supplemental oxygen; Z86.0101 Personal history of adenomatous and serrated colon polyps; Z99.3 Dependence on wheelchair
CPT/HCPCS: 36415; 71046; 71275; 80048; 80053; 81001; 82948; 83036; 85025; 85380; 87040; 87086; 87181; 93005; 94640; 96365; 96367; 96375; 99285; A9270; G0378; J0456; J0696; J1650; J1815; J2919; J7512; Q9967

== ENCOUNTER 2025-07-14 17:09 | Inpatient (IN) | payer MEDICARE, MEDICAID, SELFPAY ==
[2025-07-14] VITALS (17 sets, daily range): BP systolic 101–148; BP diastolic 62–98; PULSE 87–127; RESP 15–27; TEMP 36.5–36.9; O2SAT 94–100; BMI 59.3
--- NOTE | ~2025-07-14 | XR_ITS ---
EXAMINATION: XR chest 1V portable COMPARISON: No comparisons available. HISTORY: palpitations, sob FINDINGS: Mild pulmonary venous congestion. No pneumothorax. Mild cardiomegaly. Mediastinal and hilar contours are within normal limits. Bony thorax no acute abnormality. Miscellaneous: None Impression: Mild CHF Reviewed, dictated and finalized at location P. R MACHINE OPERATOR Impression: Mild CHF
--- NOTE | 2025-07-14 17:09 | ED.ARRPALP ---
HPI - Arrhythmia/Palpitations General Chief Complaint: Arrhythmia/Palpitations Stated Complaint: rapid heart rate Source: patient and EMS Mode of arrival: EMS Limitations: no limitations History of Present Illness HPI narrative: 74 years old white female [facility] with shortness of breath and palpitations start suddenly prior to arrival EMT reported that patient was in SVT, 230 beats per minute, received 6 mg of adenosine followed by 12 mg of adenosine followed by 5 mg of Lopressor IV with slight improvement on arrival to the ED patient heart rate was running 126 beats per minute, hemodynamically stable, feeling great and asymptomatic. History of COPD, chronic oxygen by nasal cannula at 2 liter/minute Related Data Home Medications ?Medication ?Instructions ?Recorded ?Confirmed ?Last Taken ?Type albuterol sulfate 90 mcg/actuation 2 puff inhalation BID 12/30/22 11/18/24 Unknown History aerosol inhaler allopurinol 100 mg tablet 100 mg PO BID 12/30/22 11/18/24 Unknown History apixaban 2.5 mg tablet (Eliquis) 2.5 mg PO BID 12/30/22 11/18/24 Unknown History atorvastatin 80 mg tablet 80 mg PO HS 12/30/22 11/18/24 Unknown History azelastine 0.05 % eye drops 1 drp ophthalmic (eye) BID 12/30/22 11/18/24 Unknown History benzonatate 200 mg capsule 200 mg PO Q8H PRN Cough 12/30/22 11/18/24 Unknown History buspirone 7.5 mg tablet 7.5 mg PO BID 12/30/22 11/18/24 Unknown History fluticasone propionate 50 1 spray intranasal DAILY 12/30/22 11/18/24 Unknown History mcg/actuation nasal spray,suspension gabapentin 300 mg capsule 300 mg PO TID 12/30/22 11/18/24 Unknown History insulin glargine 100 unit/mL 28 unit subcut DAILY 12/30/22 11/18/24 Unknown History subcutaneous solution insulin glargine 100 unit/mL 42 unit subcut HS 12/30/22 11/18/24 Unknown History subcutaneous solution ipratropium bromide 0.02 % 3 ml continuous nebulization Q6H 12/30/22 11/18/24 Unknown History solution for inhalation loratadine 10 mg tablet (Claritin) 10 mg PO DAILY 12/30/22 11/18/24 Unknown History mirabegron 25 mg tablet,extended 25 mg PO HS 12/30/22 11/18/24 Unknown History release 24 hr (Myrbetriq) omeprazole 20 mg capsule,delayed 20 mg PO DAILY 12/30/22 11/18/24 Unknown History release ropinirole 2 mg tablet 4 mg PO HS 12/30/22 11/18/24 Unknown History sertraline 100 mg tablet 150 mg PO DAILY 12/30/22 11/18/24 Unknown History hydrocortisone 1 % topical cream 1 applic topical BID 07/28/23 11/18/24 Unknown History ondansetron 4 mg disintegrating 4 mg PO Q6H PRN Nausea And Vomiting 07/28/23 11/18/24 Unknown History tablet ferrous sulfate 325 mg (65 mg 325 mg PO DAILY 09/29/23 11/18/24 Unknown History iron) capsule,extended release nitroglycerin 0.4 mg sublingual 0.4 mg sublingual Q5M PRN Chest 09/29/23 11/18/24 Unknown History tablet Pain budesonide 160 mcg-glycopyr 9 2 inh inhalation BID 11/18/24 11/18/24 Unknown History mcg-formot 4.8 mcg/actuation HFA inhaler (Breztri Aerosphere) furosemide 40 mg tablet 80 mg PO BID 11/18/24 11/18/24 Unknown History ipratropium 0.5 mg-albuterol 3 mg 3 ml inhalation TID PRN shortness 11/18/24 11/18/24 Unknown History (2.5 mg base)/3 mL nebulization of breath or wheezing soln loperamide 2 mg capsule 2 mg PO Q6H PRN loose stool 11/18/24 11/18/24 Unknown History (Anti-Diarrheal (loperamide)) nystatin 100,000 unit/gram topical 1 applic topical BID PRN skin 11/18/24 11/18/24 Unknown History powder irritation potassium chloride 20 mEq 20 meq PO BID 11/18/24 11/18/24 Unknown History tablet,extended release(part/cryst) tramadol 50 mg tablet 50 mg PO Q8H PRN pain 11/18/24 11/18/24 Unknown History Allergies Allergy/AdvReac Type Severity Reaction Status Date / Time NSAIDS (Non-Steroidal Allergy Unknown Other Verified 07/14/25 17:27 Anti-Inflamma Review of Systems Review of Systems: All systems reviewed & are unremarkable except as noted in HPI and below PMFSH Past Medical History Medical History Closed supracondylar fracture of femur Chronic respiratory failure with hypoxia, on home oxygen therapy Chronic obstructive pulmonary disease Morbid obesity Obstructive sleep apnea Obesity hypoventilation syndrome Insulin dependent type 2 diabetes mellitus Congestive heart failure Most recent echocardiogram showed normal LV systolic function and size with an EF of 60 to 65%, grade 1 diastolic dysfunction, biatrial enlargement, and an estimated PA SP of 63 mmHg. Thyroid nodule Renal lesion Lung nodule Osteoarthritis Recurrent UTI Postmenopausal Chronic kidney disease, stage III (moderate) Chronic midline low back pain Iron deficiency anemia Irritable bowel syndrome Diverticulosis Anemia of chronic disease Hyperlipidemia Diabetic polyneuropathy Depression with anxiety With history of panic attacks Essential (primary) hypertension Lymphedema of both lower extremities Overactive bladder With chronic urinary incontinence Beal catheter placed in the ER Polyarthritis of multiple sites Spondylosis Hiatal hernia Small hiatal hernia noted on barium swallow performed due to dysphagia and sensation of globus. Of the mid distal esophagus, repeated mid distal esophageal reflux Degenerative joint disease Restless leg syndrome Surgical History Surgical History History of colonoscopy with polypectomy Family History Family History Sibling , Sister Cancer Psychiatric illness Father Cancer Mother Cancer Son Cancer Social History Social History Social History: Surrogate medical decision maker: Code status: Full code. Smoking status: Never smoker Second hand tobacco smoke exposure: No Alcohol intake: never Alcohol use details: social Substance use: never Substance use type: marijuana Last use: 07/18/22 Do You Feel Safe in your Home?: Yes Lack of Transportation: No Lack of Food: Never True Current Housing: I Have Housing Concerned About Future Housing: No Difficulty Paying Gas/Electric Bills: No Difficulty Paying for Meds: No Currently Unemployed: No Education: Associate Degree Difficulty w/ Childcare or Family Care: No Living arrangements: penitentiary Additional living arrangements comments: [facility]. Wheelchair-bound. Two children. 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 Spiritual care concerns: No Agree to blood products: Yes Exam Narrative: General appearance: Well-developed, well-nourished Skin: Normal color, trace edema lower extremity bilaterally up to the mid calf muscle Head: Normocephalic, nontraumatic Eyes: Clear conjunctiva ENT: Oropharynx normal, ears normal, nose normal Neck: Supple, nontender Chest and respiratory: Airway patent, no respiratory distress, no accessory muscle use Heart: Tachycardia, irregular irregularity Abdomen: Soft, nontender, no organomegaly, quiet bowel sounds Vascular: Normal peripheral pulses, normal capillary refill. 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, no gross motor deficit Course Vital Signs Vital signs: Vital Signs Temperature 36.9 C 07/14/25 17:17 Pulse Rate 126 H 07/14/25 17:17 Respiratory Rate 20 07/14/25 17:17 Blood Pressure 125/98 H 07/14/25 17:17 Pulse Oximetry 96 07/14/25 17:17 Oxygen Delivery Nasal Cannula 07/14/25 17:17 Oxygen Flow Rate 2 07/14/25 17:17 Temperature 36.9 C 07/14/25 17:17 Pulse Rate 116 H 07/14/25 19:03 Respiratory Rate 16 07/14/25 19:03 Blood Pressure 107/84 07/14/25 19:02 Pulse Oximetry 94 07/14/25 17:51 Oxygen Delivery Nasal Cannula 07/14/25 17:17 Oxygen Flow Rate 2 07/14/25 17:17 MDM - Arrhythmia/Palpitations MDM Narrative Medical decision making narrative: Patient came to the ED with shortness of breath and palpitation Vital signs showing blood pressure 125/98, heart rate 126 otherwise within normal limit EKG on arrival showing atrial flutter/tachycardia 124 beats per minute Physical examination showing tachycardia, trace edema lower extremity bilaterally slight diminution of air entry bilaterally otherwise within normal limit Differential diagnosis: Coronary artery disease, CHF, COPD exacerbation, atrial flutter, electrolyte imbalance, dehydration, hypoxia Blood workup today include CBC, CMP, troponin, pro BMP, lipase, coags showed potassium 5.4, creatinine 1.6, magnesium 1.7 otherwise within normal limit Patient received insulin and glucose for hyperkalemia, 2 g of magnesium to keep it above 2.0. Chest x-ray showed mild CHF Diagnosis a flutter, hyperkalemia, DAYDAY Admit to hospitalist Differential Diagnosis Differential diagnosis: Likely other (As above) Medical Records Attestation: I reviewed the patient's medical records. Lab Data Attestation: I reviewed the patient's lab results. 07/14/25 17:29 07/14/25 17:29 Labs: Lab Results 07/14/25 Range/Units 17:29 WBC 7.7 (4.5-10.0) K/mm3 RBC 4.44 (4.2-5.4) M/mm3 Hgb 13.6 (12.0-15.0) g/dL Hct 42.7 (37.0-47.0) % MCV 96.2 (80-100) fl MCH 30.6 (26-34) pg MCHC 31.9 L (32-36) g/dl RDW 13.7 (11.5-14.5) % Plt Count 179 (150-375) k/mm3 MPV 10.6 H (7.4-10.4) fl Immature Gran % (Auto) 0.5 (0-0.5) % Neut % (Auto) 77.7 H (45.5-73.1) % Lymph % (Auto) 12.8 L (18.3-44.2) % [place] % (Auto) 6.9 (2.6-8.5) % Eos % (Auto) 1.6 (0-4.4) % Baso % (Auto) 0.5 (0.2-1.2) % Lymph # (Auto) 0.98 (0.9-3.2) K/mm3 [place] # (Auto) 0.5 (0.1-0.6) K/mm3 Eos # (Auto) 0.1 (0-0.3) K/mm3 Baso # (Auto) 0.0 (0.0-0.1) K/mm3 Abs Immat Gran (auto) 0.04 H (0.00-0.031) K/mm3 Absolute Neuts (auto) 6.0 (1.3-6.7) K/mm3 Absolute Nucleated RBC 0.000 (0.0-0.012) K/mm3 Nucleated RBC % 0.0 (0.0-0.2) % PT 18.2 H (11.1-14.7) Seconds INR 1.5 APTT 34.4 (22.3-36.8) Seconds Sodium 136 L (137-145) mmol/L Potassium 5.4 H (3.4-5.0) mmol/L Chloride 102 (98-107) mmol/L Carbon Dioxide 27 (22-30) mmol/L Anion Gap 7 (4-12) mmol/L BUN 42 H (7-17) mg/dL Creatinine 1.63 H (0.7-1.0) mg/dL Estim Creat Clear Calc 41 ml/min Estimated GFR 31 L (59 - ) Glucose 118 H (65-110) mg/dL Calcium 8.6 (8.4-10.2) mg/dL Magnesium 1.7 (1.6-2.3) mg/dL Total Bilirubin 0.8 (0.2-1.3) mg/dL AST 25 (14-36) U/L ALT 17 (6-35) U/L Alkaline Phosphatase 97 (38-126) U/L Troponin I 0.021 (0.000-0.034) ng/mL NT-Pro-B Natriuret Pep 5620 H (19.9-100) pg/mL Total Protein 6.6 (6.3-8.2) g/dL Albumin 3.5 (3.5-5.1) g/dL Lipase 90 (23-300) U/L Imaging Data Radiologist's impression: Impressions Chest X-Ray 07/14/25 19:11 Impression: Mild CHF ECG Data EKG #1: Attestation: I personally reviewed and interpreted this ECG as follows: ECG completion date: 07/14/25 Interpretation: A flutter at 9:20 p.m. 6 beats per minute Critical Care Time Critical Care Time Critical Care Time: Yes Total Critical Care Time: 30 Discharge Plan Discharge Clinical Impression: Atrial flutter Patient Disposition: Still a Patient Condition: Improved
--- NOTE | 2025-07-14 17:16 | ECG_ITS ---
Test Date: 2025-07-14 23:05:23 Measurements Intervals [place] Rate: 85 P: 0 NC: 0 QRS: -5 QRSD: 115 T: 269 QT: 414 QTc: 493 Interpretive Statements ATRIAL FLUTTER LOW QRS VOLTAGE IN PRECORDIAL LEADS INTRAVENTRICULAR CONDUCTION DELAY ST DEVIATION AND T-WAVE ABNORMALITY, CONSIDER ISCHEMIA Electronically Signed On 07-15-2025 09:59:27 BOOKKEEPER by Dariel Hardin D.O
[2025-07-14] MEDS: dilTIAZem 100 MG/100 ML 100 MG/100 ML BAG IV CONT (17:36)
[2025-07-14 17:38] LABS: Hematocrit 42.7 % (37.0-47.0); Hemoglobin 13.6 g/dL (12.0-15.0); Immature Granulocyte Percent A 0.5 % (0-0.5); Lymphocytes Absolute Auto 0.98 K/mm3 (0.9-3.2); Mean Corpuscular HGB Conc 31.9 g/dl (32-36); Mean Corpuscular Hemoglobin 30.6 pg (26-34); Mean Corpuscular Volume 96.2 fl (80-100); Nucleated Red Blood Cells Absolute Auto 0.000 K/mm3 (0.0-0.012); Nucleated Red Blood Cells Perc 0.0 % (0.0-0.2); Platelet Count Result 179 k/mm3 (150-375); Red Blood Count 4.44 M/mm3 (4.2-5.4); White Blood Count 7.7 K/mm3 (4.5-10.0)
[2025-07-14 17:48] LABS: Alanine Aminotransferase 17 U/L (6-35); Albumin Level 3.5 g/dL (3.5-5.1); Alkaline Phosphatase 97 U/L (38-126); Anion Gap 7 mmol/L (4-12); Aspartate Amino Transferase 25 U/L (14-36); Bilirubin,Total 0.8 mg/dL (0.2-1.3); Blood Urea Nitrogen 42 mg/dL (7-17); Calcium 8.6 mg/dL (8.4-10.2); Carbon Dioxide 27 mmol/L (22-30); Chloride 102 mmol/L (98-107); Estimated CRCL calculation 41 ml/min; Estimated Glomerular Filt Rate 31; Glucose 118 mg/dL (65-110); Lipase 90 U/L (23-300); Potassium 5.4 mmol/L (3.4-5.0); Sodium 136 mmol/L (137-145); Total Protein 6.6 g/dL (6.3-8.2)
[2025-07-14 17:49] LABS: INR 1.5; Prothrombin Time 18.2 Seconds (11.1-14.7)
[2025-07-14 17:50] LABS: Partial Thromboplastin Time 34.4 Seconds (22.3-36.8)
[2025-07-14 17:59] LABS: Troponin I 0.021 ng/mL (0.000-0.034)
[2025-07-14 18:39] LABS: Magnesium 1.7 mg/dL (1.6-2.3)
[2025-07-14 18:48] LABS: NT Pro B Type Natriuretic Pept 5620 pg/mL (19.9-100)
[2025-07-14] MEDS: DEXTROSE 50% 25 GM/50 ML SYRINGE IV PUSH (20:09)
[2025-07-14] MEDS: MAGNESIUM SULF 2 GM/WATER 50ML 2 GM/50 ML BAG IVPB (20:09)
[2025-07-14] MEDS: INSULIN HUMAN REGULAR (*BKC) 100 UNITS/ML 10 UNITS IV PUSH (20:10)
--- NOTE | 2025-07-14 20:23 | WPCEDHO ---
ED Hand Off Checklist All vitals saved: Yes IV Site documented: Yes All med administrations documented: Yes Triage Note Triage Note To ed via ems from [facility] with 07/14/25 17:17 sob and elevated heart rate. Pt states she has felt sob all day. When ems arrived to CT pt was found to be in SVT with rate of 230. Pt was given Adenosine 6mg and 12 mg, ems states pt converted for a few seconds and then her heart rate went back up. Was then given Metoprolol 5 mg. HR 120's on arrival to ed. Allergies NSAIDS (Non-Steroidal Anti-Inflamma Allergy (Unknown, Verified 07/14/25 17:27) Other infects the kidneys Family History (Last Reviewed 07/14/25 @ 18:00 by Michael De La Torre MD) Sibling Cancer Psychiatric illness Father Cancer Mother Cancer Son Cancer Active Medications including assessments/comments Diltiazem HCl (Cardizem 100 Mg/100 Ml) 100 mg in 100 mls @ 5 mls/hr IV CONT .Q20H STA; Protocol Stop: 07/15/25 13:27 Last Admin: 07/14/25 17:36 Dose: 5 mg/hr, 5 mls/hr Documented By: LEV Infusion/Titration Document 07/14/25 17:36 LEV (Rec: 07/14/25 17:37 LEV [id number]) Intake IV Site Peripheral Access Right Forearm Container Volume 100 Waste Amount 0 Dosing Dose Rate 5 Infusion Rate 5 Increase/Decrease Started Elapsed Time Elapsed Time ( 0m minutes) Diltiazem Infusion Assessment Document 07/14/25 17:36 LEV (Rec: 07/14/25 17:37 LEV [id number]) Infusion Action Diltiazem Infusion Initiated Action Pulse Pulse Rate (60-100) 126 H Blood Pressure Blood Pressure (100/ 125/98 H 60-140/90) Blood Pressure Mean 107 Magnesium Sulfate (Magnesium Sulf 2 Gm/Water 50ml) 2 gm in 50 mls @ 25 mls/hr IVPB ONCE ONE Stop: 07/14/25 21:27 Last Admin: 07/14/25 20:09 Dose: 25 mls/hr Documented By: TRIXIE Co-signed By: VALENCIA Infusion/Titration Document 07/14/25 20:09 TRIXIE (Rec: 07/14/25 20:09 TRIXIE [id number]) Co-signed By Yecenia England RN Intake IV Site Peripheral Access Left Forearm Container Volume 50 Waste Amount 0 Dosing Infusion Rate 25 Increase/Decrease Started Elapsed Time Elapsed Time ( 0m minutes) Magnesium Sulfate Infusion Document 07/14/25 20:09 TRIXIE (Rec: 07/14/25 20:09 TRIXIE [id number]) Co-signed By Yecenia England RN Infusion Action Magnesium Sulfate Initiated Infusion Action Administered/Completed Medications Discontinued Medications Dextrose (Dextrose 50% 25 Gm/50 Ml Syringe) 25 gm IV PUSH ONCE STA Stop: 07/14/25 19:29 Last Admin: 07/14/25 20:09 Dose: 25 gm Documented By: TRIXIE Diltiazem HCl (Diltiazem Hcl Inj 25 Mg/5 Ml Vial) 10 mg IV PUSH ONCE STA Stop: 07/14/25 17:29 Last Admin: 07/14/25 17:36 Dose: 10 mg Documented By: STEW Insulin Human Regular (Insulin Human Regular (*Bkc) 100 Units/Ml) 10 units IV PUSH ONCE ONE Stop: 07/14/25 19:29 Last Admin: 07/14/25 20:10 Dose: 10 units Documented By: TRIXIE Co-signed By: VALENCIA Interventions/Assessments IV / Saline Lock, Insert Start: 07/14/25 17:16 Freq: STAT Status: Active Protocol: Document 07/14/25 17:26 LEV (Rec: 07/14/25 17:27 LEV [id number]) IV Assessment Peripheral Access Left Forearm IV Catheter Access Initiated Before Arrival IV Insertion Date 07/14/25 IV Insertion Time 17:27 Catheter Gauge 18 IV Site Assessment WNL IV Care and WNL Maintenance Peripheral Access Right Forearm IV Catheter Access Initiated IV Insertion Date 07/14/25 IV Insertion Time 17:26 Catheter Gauge 18 IV Insertion 1 Attempts Ultrasound Used for No Placement IV Site Assessment WNL IV Care and WNL Maintenance PA: Cardiovascular Assessment Start: 07/14/25 17:02 Freq: Status: Active Protocol: Document 07/14/25 17:27 LEV (Rec: 07/14/25 17:28 LEV [id number]) Cardiovascular Assessment Cardiovascular Dyspnea,Palpitations Symptoms Skin Description Normal Color Heart Sounds Normal Jugular Vein None Distention Rhythm/Strength Monitor Rhythm Irregular Pulse Strength 3+ Normal EKG Rythm Atrial Fibrillation Last Vital Signs Temperature 98.5 F 07/14/25 17:17 Pulse Rate 106 H 07/14/25 19:17 Respiratory Rate 26 H 07/14/25 19:17 Pulse Oximetry 94 07/14/25 17:51 Blood Pressure 106/84 07/14/25 19:16 Blood Pressure Mean 91 07/14/25 19:16 Blood Pressure Position Supine 07/14/25 17:17 Oxygen Delivery Nasal Cannula 07/14/25 17:17 Oxygen Flow Rate 2 07/14/25 17:17 Weight 153.4 kg 07/14/25 17:17 Last Result - Abnormals Only MCHC 31.9 g/dl (32-36) L 07/14/25 17:29 MPV 10.6 fl (7.4-10.4) H 07/14/25 17:29 Neut % (Auto) 77.7 % (45.5-73.1) H 07/14/25 17:29 Lymph % (Auto) 12.8 % (18.3-44.2) L 07/14/25 17:29 Abs Immat Gran (auto) 0.04 K/mm3 (0.00-0.031) H 07/14/25 17:29 PT 18.2 Seconds (11.1-14.7) H 07/14/25 17:29 Sodium 136 mmol/L (137-145) L 07/14/25 17:29 Potassium 5.4 mmol/L (3.4-5.0) H 07/14/25 17:29 BUN 42 mg/dL (7-17) H 07/14/25 17:29 Creatinine 1.63 mg/dL (0.7-1.0) H 07/14/25 17:29 Estimated GFR 31 (59-) L 07/14/25 17:29 Glucose 118 mg/dL (65-110) H 07/14/25 17:29 NT-Pro-B Natriuret Pep 5620 pg/mL (19.9-100) H 07/14/25 17:29 Most Recent Suicide Severity Rating Suicide Severity Rating NO RISK INDICATED 07/14/25 17:17
--- NOTE | 2025-07-14 20:58 | ADMGEN ---
This patient, Delilah Ludwig, was admitted to IMU Room 201-01. Patient/family oriented to hospital policies and general routines including ID bracelet, bed and alarms, visiting hours, pain management, procedures, bathroom and other care routines, personal items, smoking policy, room service/diet, and visiting hours. Information on how to activate the Rapid Response Team has been discussed. Patient/Family are encouraged to report perceived risks to care and to ask questions if they do not understand what they are told or what they should do.
--- NOTE | 2025-07-14 21:24 | PM.IMHP ---
H&P: HPI History of Present Illness Date/Time: 07/14/25 21:24 Chief Complaint: Palpitations, shortness of breath Narrative: 74-year-old female presents from [facility] with shortness of breath and palpitations for 1 day. Chronically ill, bed-bound, diabetes mellitus with current long-term use of insulin and polyneuropathy, systolic heart failure (EF 60-65% on echocardiogram 07/28/2023), osteoarthritis, CKD stage 3, anemia of chronic disease, restless leg syndrome, COPD, obesity hypoventilation syndrome, CIRILO not using CPAP, chronic respiratory failure on 2 L continuous. Patient reported shortness of breath for 1 day, also developed palpitations, EMT arrived and patient was in SVT 230 beats per minute, received 6 mg adenosine, 12 mg adenosine, then 5 mg Lopressor IV. Some improvement in the heart rate. On arrival to [facility] ER on 07/14/2025 heart rate running in the 120s, a repeat EKG demonstrated atrial flutter with rapid ventricular rate. Patient was otherwise comfortable. Potassium 5.4. Given dextrose 25 g IV x1, insulin 10 units IV x1. Magnesium 1.7, given 2 g rider. Diltiazem 10 mg IV x1. Placed on diltiazem GTT 5 milligrams/hour, subsequently rate controlled. Blood pressure stable between systolic 104 and 148. Patient saturating adequately on her usual 2 L. D-dimer 0.48, INR 1.5. The patient has Eliquis 2.5 mg p.o. b.i.d. on her medication list but she does not know why she takes it. There is no diagnosis on her sheet regarding DVT/PE/irregular heart rate. When she last left [facility] in 10/2024 she did not have a diagnosis of atrial fibrillation/a flutter and was not on Eliquis. Serum creatinine 1.63 which is slightly above her baseline. Troponin 0.021, BNP 5600 which is above her baseline. I reviewed chest x-ray, evidence of mild CHF. Review of Systems Review of Systems: All systems reviewed & are unremarkable except as noted in HPI and below (Subjective) [facility] Past Medical History Medical History Closed supracondylar fracture of femur Chronic respiratory failure with hypoxia, on home oxygen therapy Chronic obstructive pulmonary disease Morbid obesity Obstructive sleep apnea Obesity hypoventilation syndrome Insulin dependent type 2 diabetes mellitus Congestive heart failure Most recent echocardiogram showed normal LV systolic function and size with an EF of 60 to 65%, grade 1 diastolic dysfunction, biatrial enlargement, and an estimated PA SP of 63 mmHg. Thyroid nodule Renal lesion Lung nodule Osteoarthritis Recurrent UTI Postmenopausal Chronic kidney disease, stage III (moderate) Chronic midline low back pain Iron deficiency anemia Irritable bowel syndrome Diverticulosis Anemia of chronic disease Hyperlipidemia Diabetic polyneuropathy Depression with anxiety With history of panic attacks Essential (primary) hypertension Lymphedema of both lower extremities Overactive bladder With chronic urinary incontinence Beal catheter placed in the ER Polyarthritis of multiple sites Spondylosis Hiatal hernia Small hiatal hernia noted on barium swallow performed due to dysphagia and sensation of globus. Of the mid distal esophagus, repeated mid distal esophageal reflux Degenerative joint disease Restless leg syndrome Surgical History Surgical History History of colonoscopy with polypectomy Family History Family History Sibling , Sister Cancer Psychiatric illness Father Cancer Mother Cancer Son Cancer Social History Social History Social History: Surrogate medical decision maker: Code status: Full code. Smoking status: Never smoker Second hand tobacco smoke exposure: No Alcohol intake: never Alcohol use details: social Substance use: never Substance use type: marijuana Last use: 07/18/22 Do You Feel Safe in your Home?: Yes Lack of Transportation: No Lack of Food: Never True Current Housing: I Have Housing Concerned About Future Housing: No Difficulty Paying Gas/Electric Bills: No Difficulty Paying for Meds: No Currently Unemployed: No Education: Associate Degree Difficulty w/ Childcare or Family Care: No Living arrangements: long-term Additional living arrangements comments: [facility]. Wheelchair-bound. Two children. 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 Spiritual care concerns: No Agree to blood products: Yes Meds Home Medications and Allergies Home Medications ?Medication ?Instructions ?Recorded ?Confirmed ?Type albuterol sulfate 2.5 mg/3 mL 2.5 mg (3 mL) inhalation Q4-6H PRN 01/06/22 11/18/24 Rx (0.083 %) solution for nebulization shortness of breath or wheezing #180 mL nystatin 100,000 unit/gram topical 1 applic topical BID #60 grams 05/13/22 11/18/24 Rx cream albuterol sulfate 90 mcg/actuation 2 puff inhalation BID 12/30/22 11/18/24 History aerosol inhaler allopurinol 100 mg tablet 100 mg PO BID 12/30/22 11/18/24 History apixaban 2.5 mg tablet (Eliquis) 2.5 mg PO BID 12/30/22 11/18/24 History atorvastatin 80 mg tablet 80 mg PO HS 12/30/22 11/18/24 History azelastine 0.05 % eye drops 1 drp ophthalmic (eye) BID 12/30/22 11/18/24 History benzonatate 200 mg capsule 200 mg PO Q8H PRN Cough 12/30/22 11/18/24 History buspirone 7.5 mg tablet 7.5 mg PO BID 12/30/22 11/18/24 History fluticasone propionate 50 1 spray intranasal DAILY 12/30/22 11/18/24 History mcg/actuation nasal spray,suspension gabapentin 300 mg capsule 300 mg PO TID 12/30/22 11/18/24 History insulin glargine 100 unit/mL 28 unit subcut DAILY 12/30/22 11/18/24 History subcutaneous solution insulin glargine 100 unit/mL 42 unit subcut HS 12/30/22 11/18/24 History subcutaneous solution ipratropium bromide 0.02 % 3 ml continuous nebulization Q6H 12/30/22 11/18/24 History solution for inhalation loratadine 10 mg tablet (Claritin) 10 mg PO DAILY 12/30/22 11/18/24 History mirabegron 25 mg tablet,extended 25 mg PO HS 12/30/22 11/18/24 History release 24 hr (Myrbetriq) omeprazole 20 mg capsule,delayed 20 mg PO DAILY 12/30/22 11/18/24 History release ropinirole 2 mg tablet 4 mg PO HS 12/30/22 11/18/24 History sertraline 100 mg tablet 150 mg PO DAILY 12/30/22 11/18/24 History hydrocortisone 1 % topical cream 1 applic topical BID 07/28/23 11/18/24 History ondansetron 4 mg disintegrating 4 mg PO Q6H PRN Nausea And Vomiting 07/28/23 11/18/24 History tablet ferrous sulfate 325 mg (65 mg 325 mg PO DAILY 09/29/23 11/18/24 History iron) capsule,extended release nitroglycerin 0.4 mg sublingual 0.4 mg sublingual Q5M PRN Chest 09/29/23 11/18/24 History tablet Pain budesonide 160 mcg-glycopyr 9 2 inh inhalation BID 11/18/24 11/18/24 History mcg-formot 4.8 mcg/actuation HFA inhaler (Breztri Aerosphere) furosemide 40 mg tablet 80 mg PO BID 11/18/24 11/18/24 History ipratropium 0.5 mg-albuterol 3 mg 3 ml inhalation TID PRN shortness 11/18/24 11/18/24 History (2.5 mg base)/3 mL nebulization of breath or wheezing soln loperamide 2 mg capsule 2 mg PO Q6H PRN loose stool 11/18/24 11/18/24 History (Anti-Diarrheal (loperamide)) nystatin 100,000 unit/gram topical 1 applic topical BID PRN skin 11/18/24 11/18/24 History powder irritation potassium chloride 20 mEq 20 meq PO BID 11/18/24 11/18/24 History tablet,extended release(part/cryst) tramadol 50 mg tablet 50 mg PO Q8H PRN pain 11/18/24 11/18/24 History ciprofloxacin HCl 0.3 % eye drops 1 drp EACH EYE Q4HR #1 applicator 11/20/24 Rx levofloxacin 750 mg tablet 750 mg PO Q48H 7 days #4 tabs 11/20/24 Rx prednisone 10 mg tablet 10 mg PO DIRECTED #20 tabs 11/20/24 Rx Allergies Allergy/AdvReac Type Severity Reaction Status Date / Time NSAIDS (Non-Steroidal Allergy Unknown Other Verified 07/14/25 21:15 Anti-Inflamma Vital Signs Vital Signs - 24 hr 07/14/25 17:17 07/14/25 17:36 07/14/25 17:51 Temperature 98.5 F Pulse Rate 126 H 126 H 106 H Respiratory Rate 20 17 Blood Pressure 125/98 H 125/98 H Pulse Oximetry 96 94 Oxygen Delivery Nasal Cannula Oxygen Flow Rate 2 07/14/25 18:00 07/14/25 18:01 07/14/25 18:15 Temperature Pulse Rate 127 H 114 H 115 H Respiratory Rate 15 27 H 18 Blood Pressure 101/73 Pulse Oximetry Oxygen Delivery Oxygen Flow Rate 07/14/25 18:16 07/14/25 19:02 07/14/25 19:03 Temperature Pulse Rate 119 H 119 H 116 H Respiratory Rate 24 H 18 16 Blood Pressure 106/62 107/84 Pulse Oximetry Oxygen Delivery Oxygen Flow Rate 07/14/25 19:16 07/14/25 19:17 07/14/25 20:31 Temperature Pulse Rate 115 H 106 H 91 Respiratory Rate 21 H 26 H 18 Blood Pressure 106/84 148/96 H Pulse Oximetry 100 Oxygen Delivery Oxygen Flow Rate 07/14/25 21:14 Temperature 97.7 F Pulse Rate 93 Respiratory Rate 15 Blood Pressure 104/63 Pulse Oximetry 95 Oxygen Delivery Oxygen Flow Rate Exam Const: General: comfortable and no acute distress Other: A&O x3, obese HENMT: Mouth: Yes moist mucous membranes Eyes: Pupils: Equal, round and reactive pupils present Neck: Neck: supple Resp: Effort & Inspection: normal respiratory effort Auscultation: crackles Cardio: Rate: regular rate Rhythm: regular rhythm Heart sounds: no murmurs GI: Inspection: non-distended GI Palp: Yes Soft to palpation : General: Yes bladder normal to palpation Neuro: Other: Globally weak Extrem: Other: 1-2 +pitting edema bilateral lower extremities with chronic skin thickening in the dependent portions Psych: Mental Status: mental status grossly normal H&P: Results Labs Labs: Short CBC 07/14/25 Range/Units 17:29 WBC 7.7 (4.5-10.0) K/mm3 Hgb 13.6 (12.0-15.0) g/dL Hct 42.7 (37.0-47.0) % Plt Count 179 (150-375) k/mm3 BMP 07/14/25 17:29 Sodium 136 L Potassium 5.4 H Chloride 102 Carbon Dioxide 27 BUN 42 H Creatinine 1.63 H Glucose 118 H Calcium 8.6 Cardiac Enzymes 07/14/25 Range/Units 17:29 Troponin I 0.021 (0.000-0.034) ng/mL Liver Function 11/15/25 Range/Units 17:29 Total Bilirubin 0.8 (0.2-1.3) mg/dL AST 25 (14-36) U/L ALT 17 (6-35) U/L Alkaline Phosphatase 97 (38-126) U/L Albumin 3.5 (3.5-5.1) g/dL Assessment and Plan Assessment and plan (1) Congestive heart failure: Code(s): I50.9 - Heart failure, unspecified Status: Acute (2) Atrial flutter: Code(s): I48.92 - Unspecified atrial flutter Status: Acute (3) Type 2 diabetes mellitus treated with insulin: Code(s): E11.9 - Type 2 diabetes mellitus without complications; Z79.4 - half-way (current) use of insulin Status: Chronic (4) DAYDAY (acute kidney injury): Code(s): N17.9 - Acute kidney failure, unspecified Status: Acute (5) Chronic kidney disease: Qualifiers: Chronic kidney disease stage: unspecified stage Qualified Code(s): N18.9 - Chronic kidney disease, unspecified Code(s): N18.9 - Chronic kidney disease, unspecified Status: Acute (6) Hyperkalemia: Code(s): E87.5 - Hyperkalemia Status: Acute Plan 74-year-old female presents from [facility] with shortness of breath and palpitations for 1 day. Chronically ill, bed-bound, diabetes mellitus with current long-term use of insulin and polyneuropathy, diastolic heart failure (EF 60-65% on echocardiogram 07/28/2023), osteoarthritis, CKD stage 3, anemia of chronic disease, restless leg syndrome, COPD, obesity hypoventilation syndrome, CIRILO not using CPAP, chronic respiratory failure on 2 L continuous. Patient reported shortness of breath for 1 day, also developed palpitations, EMT arrived and patient was in SVT 230 beats per minute, received 6 mg adenosine, 12 mg adenosine, then 5 mg Lopressor IV. Some improvement in the heart rate. On arrival to [facility] ER on 07/14/2025 heart rate running in the 120s, a repeat EKG demonstrated atrial flutter with rapid ventricular rate. Patient was otherwise comfortable. Potassium 5.4. Given dextrose 25 g IV x1, insulin 10 units IV x1. Magnesium 1.7, given 2 g rider. Diltiazem 10 mg IV x1. Placed on diltiazem GTT 5 milligrams/hour, subsequently rate controlled. Blood pressure stable between systolic 104 and 148. Patient saturating adequately on her usual 2 L. D-dimer 0.48, INR 1.5. The patient has Eliquis 2.5 mg p.o. b.i.d. on her medication list but she does not know why she takes it. There is no diagnosis on her sheet regarding DVT/PE/irregular heart rate. When she last left [facility] in 10/2024 she did not have a diagnosis of atrial fibrillation/a flutter and was not on Eliquis. Serum creatinine 1.63 which is slightly above her baseline. Troponin 0.021, BNP 5600 which is above her baseline. I reviewed chest x-ray, evidence of mild CHF. ----- Patient presents with shortness of breath likely related to acute on chronic CHF due to atrial flutter with RVR. She was placed on apixaban since October 2024, suspect she had a diagnosis recently. Her INR is 1.5 likely reflecting use of Eliquis. Continue Eliquis 2.5 mg p.o. b.i.d.. Continue telemetry, continue diltiazem GTT. Consult Cardiology. Check TSH with reflex. Keep potassium greater than 4, magnesium greater than 2. She has not been adhering to fluid restriction. Restrict fluids to 1500 cc per day. Intake/output recording, daily weights. Will give Lasix 1 x 40 mg IV. Follow with Lasix 20 mg IV b.i.d.. Restarted and adjust heart failure medications based on treatment of atrial flutter, blood pressure, heart rate. Received insulin, dextrose, Lasix. Recheck BMP tonight. Trend renal function after diuresis. Accu-Cheks a.c. HS with low-dose insulin sliding scale and hypoglycemia protocol. Update HbA1c. COPD, chronic respiratory failure: At baseline 2 L, no COPD exacerbation. Continue controller medications. ----- Alf resident at local nursing facility. Patient wishes to be full code. Bedbound. Saline lock IV. Heart healthy, diabetic diet, fluid restriction. Yuan hose stocking thigh-high. Accu-Cheks a.c. HS with hypoglycemia protocol as needed. Low-dose insulin sliding scale. Hospitalist [facility] Advance Care Plan I have confirmed that the patient's Advanced Care Plan is present, code status is documented, or surrogate decision maker is listed in patient medical record.: Yes Medication Reconciliation I have utilized all available resources to obtain, update and review the patients current medications (includes all prescriptions, OTC, herbals, cannabis, and nutritional supplements).: Yes
[2025-07-14 22:49] LABS: Troponin I 0.038 ng/mL (0.000-0.034)
--- NOTE | 2025-07-14 22:54 | ECG_ITS ---
Test Date: 2025-07-14 17:16:38 Measurements Intervals [place] Rate: 124 P: 0 MA: 0 QRS: -30 QRSD: 94 T: -62 QT: 336 QTc: 484 Interpretive Statements ATRIAL FLUTTER WITH RAPID VENTRICULAR RESPONSE ST-T ABNORMALITY Electronically Signed On 07-15-2025 09:56:06 LINE UP EXAMINER by Dariel Hardin D.O
[2025-07-15] VITALS (21 sets, daily range): BP systolic 104–125; BP diastolic 52–93; PULSE 85–131; RESP 13–20; TEMP 36.3–36.8; O2SAT 90–96
[2025-07-15 01:25] LABS: Anion Gap 6 mmol/L (4-12); Blood Urea Nitrogen 43 mg/dL (7-17); Calcium 8.9 mg/dL (8.4-10.2); Carbon Dioxide 30 mmol/L (22-30); Chloride 102 mmol/L (98-107); Estimated CRCL calculation 41 ml/min; Estimated Glomerular Filt Rate 32; Glucose 80 mg/dL (65-110); Potassium 4.0 mmol/L (3.4-5.0); Sodium 138 mmol/L (137-145)
[2025-07-15 01:43] LABS: Troponin I 0.037 ng/mL (0.000-0.034)
[2025-07-15 01:55] LABS: Thyroid Stimulating Hormone Reflex 1.890 uIU/mL (0.465-4.68)
[2025-07-15 05:29] LABS: Hematocrit 42.3 % (37.0-47.0); Hemoglobin 13.2 g/dL (12.0-15.0); Immature Granulocyte Percent A 0.3 % (0-0.5); Lymphocytes Absolute Auto 1.09 K/mm3 (0.9-3.2); Mean Corpuscular HGB Conc 31.2 g/dl (32-36); Mean Corpuscular Hemoglobin 30.6 pg (26-34); Mean Corpuscular Volume 98.1 fl (80-100); Nucleated Red Blood Cells Absolute Auto 0.000 K/mm3 (0.0-0.012); Nucleated Red Blood Cells Perc 0.0 % (0.0-0.2); Platelet Count Result 147 k/mm3 (150-375); Red Blood Count 4.31 M/mm3 (4.2-5.4); White Blood Count 6.0 K/mm3 (4.5-10.0)
[2025-07-15 05:49] LABS: Alanine Aminotransferase 16 U/L (6-35); Albumin Level 3.4 g/dL (3.5-5.1); Alkaline Phosphatase 91 U/L (38-126); Anion Gap 3 mmol/L (4-12); Aspartate Amino Transferase 25 U/L (14-36); Bilirubin,Total 0.6 mg/dL (0.2-1.3); Blood Urea Nitrogen 42 mg/dL (7-17); Calcium 9.0 mg/dL (8.4-10.2); Carbon Dioxide 33 mmol/L (22-30); Chloride 102 mmol/L (98-107); Estimated CRCL calculation 39 ml/min; Estimated Glomerular Filt Rate 31; Glucose 125 mg/dL (65-110); Magnesium 2.3 mg/dL (1.6-2.3); Potassium 4.9 mmol/L (3.4-5.0); Sodium 138 mmol/L (137-145); Total Protein 6.2 g/dL (6.3-8.2)
[2025-07-15 06:18] LABS: Hemoglobin A1C 6.3 % (<5.7)
[2025-07-15] MEDS: FUROSEMIDE INJ 40 MG/4 ML VIAL 20 MG IV PUSH (08:59)
[2025-07-15] MEDS: PANTOPRAZOLE 40 MG TABLET PO (08:59)
[2025-07-15] MEDS: APIXABAN 2.5 MG TABLET PO (08:59)
--- NOTE | 2025-07-15 09:24 | PM.CNCAR ---
Assessment and Plan Assessment and plan (1) Atrial flutter with rapid ventricular response: Code(s): I48.92 - Unspecified atrial flutter Status: Acute Assessment and Plan: 74-year-old female with diastolic dysfunction, diabetes mellitus on insulin, neuropathy, morbid obesity with obesity hypoventilation, chronic respiratory failure on supplemental oxygen at home; pulmonary hypertension, CKD, CIRILO, generalized debility/bed-bound. Patient admitted to the hospital with palpitations associated with dyspnea. Modest improvement in heart rate with IV adenosine via EMS. Patient is in atrial flutter. TSH within normal limits. -heart rate is controlled now. Change IV diltiazem to short-acting p.o. diltiazem, which can be later changed to long-acting diltiazem. -patient's home medications show apixaban 2.5 mg p.o. b.i.d.. The dose of the apixaban will be changed to 5 mg p.o. b.i.d. for CVA prophylaxis per dosing guidelines. In addition, apixaban will help patient with DVT prophylaxis as she is morbidly obese and bedbound. -continue to monitor on telemetry. Will consider DC cardioversion if patient has recurrent difficult to control atrial flutter with RVR. Her candidacy for atrial flutter ablation treatment can be determined as an outpatient. (2) Obesity hypoventilation syndrome: Code(s): E66.2 - Morbid (severe) obesity with alveolar hypoventilation Status: Acute Assessment and Plan: Supplemental oxygen. Management as per primary team and pulmonology. History of Present Illness History of Present Illness Consult date/time: 07/15/25 09:24 Requesting physician: Latosha Cornelius MD Reason For Visit: A flutter, DAYDAY, hyperkalemia Narrative: DATE OF CONSULT: 07/15/2025 REASON FOR CONSULT: Irregular heart rate REQUESTING PHYSICIAN: MD Adryan CHIEF COMPLAINT: Palpitations, shortness of breath HPI: 74-year-old female with diastolic dysfunction, diabetes mellitus on insulin, neuropathy, morbid obesity with obesity hypoventilation, chronic respiratory failure on supplemental oxygen at home; pulmonary hypertension, CKD, CIRILO, generalized debility/bed-bound. Patient is a [place] [facility] resident. She presented to [facility] Emergency Room on 07/14/2025 via EMS with complaints of palpitations associated with shortness of breath. Patient reports that she is bed-bound for about 5-6 years due to morbid obesity and neuropathy. She denies prior known cardiac history including clinical [place], any known arrhythmias or any cardiac interventions. As per ER notes, EMT reported that patient was in SVT, 230 beats per minute, received 6 mg of adenosine followed by 12 mg of adenosine followed by 5 mg of metoprolol IV with slight improvement in the heart rate to 126 beats per minute on arrival to the ER. She was subsequently initiated on IV diltiazem. EKG at presentation on my personal interpretation showed atrial flutter with controlled ventricular response, ST-T abnormality. Subsequent EKG showed atrial flutter with RVR with ventricular rate about 124 beats per minute. Currently, on telemetry she is in atrial flutter with controlled ventricular response. First 2 sets of troponin minimally elevated at 0.03 and essentially flat. TSH within normal limits. Chest x-ray showed pulmonary vascular congestion. Prior echocardiogram from 07/28/2023 reportedly showed normal LV systolic function, grade 1 diastolic dysfunction, mild RV enlargement, biatrial enlargement, pulmonary hypertension with RVSP 63 mmHg. Review of Systems Review of Systems: General: Positive for generalized fatigue Psychological: Negative for anxiety, depression Ophthalmic: negative for loss of vision ENT: Negative for epistaxis, headaches Allergy and immunology: Negative for hives, nasal congestion Hematologic and lymphatic: Negative for overt bleeding problems Endocrine: Negative for hot flashes, palpitations Respiratory: Positive for dyspnea Cardiovascular: Negative for chest pain, positive for palpitations, dyspnea Gastrointestinal: Negative for abdominal pain, nausea, vomiting, hematochezia Musculoskeletal: Unable to walk Neurological: Positive for generalized weakness, neuropathy Dermatological: Negative for rash, skin discoloration [facility] Past Medical History Medical History Closed supracondylar fracture of femur Chronic respiratory failure with hypoxia, on home oxygen therapy Chronic obstructive pulmonary disease Morbid obesity Obstructive sleep apnea Obesity hypoventilation syndrome Insulin dependent type 2 diabetes mellitus Congestive heart failure Most recent echocardiogram showed normal LV systolic function and size with an EF of 60 to 65%, grade 1 diastolic dysfunction, biatrial enlargement, and an estimated PA SP of 63 mmHg. Thyroid nodule Renal lesion Lung nodule Osteoarthritis Recurrent UTI Postmenopausal Chronic kidney disease, stage III (moderate) Chronic midline low back pain Iron deficiency anemia Irritable bowel syndrome Diverticulosis Anemia of chronic disease Hyperlipidemia Diabetic polyneuropathy Depression with anxiety With history of panic attacks Essential (primary) hypertension Lymphedema of both lower extremities Overactive bladder With chronic urinary incontinence Beal catheter placed in the ER Polyarthritis of multiple sites Spondylosis Hiatal hernia Small hiatal hernia noted on barium swallow performed due to dysphagia and sensation of globus. Of the mid distal esophagus, repeated mid distal esophageal reflux Degenerative joint disease Restless leg syndrome Surgical History Surgical History History of colonoscopy with polypectomy Family History Family History Sibling , Sister Psychiatric illness Cancer Father Cancer Mother Cancer Cerebrovascular accident Son Cancer Grandparent Diabetes mellitus Social History Social History Social History: Surrogate medical decision maker: Code status: Full code. Smoking status: Never smoker Second hand tobacco smoke exposure: No Alcohol intake: former Alcohol use details: social Substance use: never Substance use type: marijuana Last use: 07/18/22 Do You Feel Safe in your Home?: Yes Lack of Transportation: No Lack of Food: Never True Current Housing: I Have Housing Concerned About Future Housing: No Difficulty Paying Gas/Electric Bills: No Difficulty Paying for Meds: No Currently Unemployed: No Education: Trade/Vocational Certificate Difficulty w/ Childcare or Family Care: No [place] [facility] [facility] Additional living arrangements comments: [facility]. Wheelchair-bound. Two children. 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 care concerns: No Agree to blood products: Yes Meds Home Medications and Allergies Home Medications ?Medication ?Instructions ?Recorded ?Confirmed ?Type albuterol sulfate 2.5 mg/3 mL 2.5 mg (3 mL) inhalation Q4-6H PRN 01/06/22 07/14/25 Rx (0.083 %) solution for nebulization shortness of breath or wheezing #180 mL albuterol sulfate 90 mcg/actuation 2 puff inhalation BID 12/30/22 07/14/25 History aerosol inhaler allopurinol 100 mg tablet 100 mg PO BID 12/30/22 07/14/25 History apixaban 2.5 mg tablet (Eliquis) 2.5 mg PO BID 12/30/22 07/14/25 History atorvastatin 80 mg tablet 80 mg PO HS 12/30/22 07/14/25 History azelastine 0.05 % eye drops 1 drp ophthalmic (eye) BID 12/30/22 07/14/25 History benzonatate 200 mg capsule 200 mg PO Q8H PRN Cough 12/30/22 07/14/25 History buspirone 7.5 mg tablet 15 mg PO TID 12/30/22 07/14/25 History fluticasone propionate 50 1 spray intranasal DAILY 12/30/22 07/14/25 History mcg/actuation nasal spray,suspension gabapentin 300 mg capsule 300 mg PO TID 12/30/22 07/14/25 History loratadine 10 mg tablet (Claritin) 10 mg PO DAILY 12/30/22 07/14/25 History mirabegron 25 mg tablet,extended 25 mg PO HS 12/30/22 07/14/25 History release 24 hr (Myrbetriq) omeprazole 20 mg capsule,delayed 20 mg PO DAILY 12/30/22 07/14/25 History release ropinirole 2 mg tablet 4 mg PO HS 12/30/22 07/14/25 History sertraline 100 mg tablet 100 mg PO DAILY 12/30/22 07/14/25 History hydrocortisone 1 % topical cream 1 applic topical DAILY PRN long 07/28/23 07/14/25 History term use ondansetron 4 mg disintegrating 4 mg PO Q6H PRN Nausea And Vomiting 07/28/23 07/14/25 History tablet ferrous sulfate 325 mg (65 mg 325 mg PO DAILY 09/29/23 07/14/25 History iron) capsule,extended release nitroglycerin 0.4 mg sublingual 0.4 mg sublingual Q5M PRN Chest 09/29/23 07/14/25 History tablet Pain budesonide 160 mcg-glycopyr 9 2 inh inhalation BID 11/18/24 07/14/25 History mcg-formot 4.8 mcg/actuation HFA inhaler (Breztri Aerosphere) furosemide 40 mg tablet 40 mg PO DAILY 11/18/24 07/14/25 History ipratropium 0.5 mg-albuterol 3 mg 3 ml inhalation TID PRN shortness 11/18/24 07/14/25 History (2.5 mg base)/3 mL nebulization of breath or wheezing soln loperamide 2 mg capsule 2 mg PO Q6H PRN loose stool 11/18/24 07/14/25 History (Anti-Diarrheal (loperamide)) nystatin 100,000 unit/gram topical 1 applic topical BID PRN skin 11/18/24 07/14/25 History powder irritation potassium chloride 20 mEq 40 meq PO BID 11/18/24 07/14/25 History tablet,extended release(part/cryst) tramadol 50 mg tablet 50 mg PO Q8H PRN pain 11/18/24 07/14/25 History cholecalciferol (vitamin D3) 100 50,000 unit PO WEEKLY 07/14/25 07/14/25 History mcg (4,000 unit) capsule insulin degludec 100 unit/mL (3 28 unit subcut .am 07/14/25 07/14/25 History mL) subcutaneous pen multivitamin (Daily Multi-Vitamin 1 tablet PO DAILY 07/14/25 07/14/25 History tablet) sennosides 8.6 mg-docusate sodium 1 tab-cap PO BID 07/14/25 07/14/25 History 50 mg capsule (Senna Plus) trazodone 50 mg tablet 50 mg PO HS 07/14/25 07/14/25 History Allergies Allergy/AdvReac Type Severity Reaction Status Date / Time NSAIDS (Non-Steroidal Allergy Unknown Other Verified 07/14/25 21:15 Anti-Inflamma Vital Signs Vital Signs - 24 hr 07/14/25 17:17 07/14/25 17:36 07/14/25 17:51 Temperature 36.9 C Pulse Rate 126 H 126 H 106 H Respiratory Rate 20 17 Blood Pressure 125/98 H 125/98 H Pulse Oximetry 96 94 Oxygen Delivery Nasal Cannula Oxygen Flow Rate 2 07/14/25 18:00 07/14/25 18:01 07/14/25 18:15 Temperature Pulse Rate 127 H 114 H 115 H Respiratory Rate 15 27 H 18 Blood Pressure 101/73 Pulse Oximetry Oxygen Delivery Oxygen Flow Rate 07/14/25 18:16 07/14/25 19:02 07/14/25 19:03 Temperature Pulse Rate 119 H 119 H 116 H Respiratory Rate 24 H 18 16 Blood Pressure 106/62 107/84 Pulse Oximetry Oxygen Delivery Oxygen Flow Rate 07/14/25 19:16 07/14/25 19:17 07/14/25 20:31 Temperature Pulse Rate 115 H 106 H 91 Respiratory Rate 21 H 26 H 18 Blood Pressure 106/84 148/96 H Pulse Oximetry 100 Oxygen Delivery Oxygen Flow Rate 07/14/25 21:00 07/14/25 21:00 07/14/25 21:14 Temperature 36.5 C Pulse Rate 88 93 Respiratory Rate 15 Blood Pressure 111/69 104/63 Pulse Oximetry 100 95 Oxygen Delivery Nasal Cannula Oxygen Flow Rate 2 07/14/25 21:30 07/14/25 22:00 07/14/25 22:21 Temperature Pulse Rate 87 88 Respiratory Rate Blood Pressure 111/69 Pulse Oximetry 96 Oxygen Delivery Nasal Cannula Oxygen Flow Rate 2 07/15/25 00:00 07/15/25 00:00 07/15/25 00:00 Temperature 36.3 C L Pulse Rate 85 85 Respiratory Rate 16 Blood Pressure 105/62 105/62 Pulse Oximetry 96 96 Oxygen Delivery Nasal Cannula Oxygen Flow Rate 2 07/15/25 00:00 07/15/25 02:00 07/15/25 02:11 Temperature Pulse Rate 85 85 85 Respiratory Rate Blood Pressure 112/58 L Pulse Oximetry Oxygen Delivery Oxygen Flow Rate 07/15/25 02:35 07/15/25 03:15 07/15/25 04:00 Temperature 36.3 C L Pulse Rate 85 86 Respiratory Rate 13 Blood Pressure 112/58 L 104/64 Pulse Oximetry 96 96 Oxygen Delivery Nasal Cannula Oxygen Flow Rate 2 07/15/25 04:00 07/15/25 04:00 07/15/25 05:53 Temperature Pulse Rate 86 86 86 Respiratory Rate Blood Pressure 104/64 115/52 L Pulse Oximetry Oxygen Delivery Oxygen Flow Rate 07/15/25 06:00 07/15/25 06:05 07/15/25 07:25 Temperature 36.4 C Pulse Rate 85 86 87 Respiratory Rate 18 Blood Pressure 115/52 L 113/63 Pulse Oximetry 92 Oxygen Delivery Oxygen Flow Rate 07/15/25 07:30 Temperature Pulse Rate 89 Respiratory Rate Blood Pressure Pulse Oximetry Oxygen Delivery Oxygen Flow Rate Exam Narrative: PHYSICAL EXAMINATION: GENERAL: Morbidly obese female, lying down in the bed, Alert, oriented, no acute distress MENTAL STATUS: affect appropriate to mood EYES: Extraocular movements intact, no pallor EARS: External ears appear normal, hearing grossly normal NOSE: Normal and patent, no discharge MOUTH: Mucous membranes moist, tongue normal NECK: Supple, JVD not appreciable CHEST: Diminished breath sounds due to body habitus HEART: Normal rate, irregular rhythm ABDOMEN: Soft, nontender NEUROLOGICAL: Alert, oriented, normal speech MUSCULOSKELETAL: No major deformity, no amputation EXTREMITIES: Mild nonpitting pedal edema, no clubbing, no cyanosis SKIN: no rash on the exposed area, no cyanosis PSYCHIATRIC: Normal mood, appropriate affect Results Labs and Meds 07/15/25 05:20 07/15/25 05:20 Lab results: Cardiac Enzymes 07/14/25 07/14/25 07/15/25 Range/Units 17:29 22:21 01:07 AST 25 (14-36) U/L Troponin I 0.021 0.038 H* D 0.037 H* (0.000-0.034) ng/mL 07/15/25 Range/Units 05:20 AST 25 (14-36) U/L Troponin I (0.000-0.034) ng/mL Coagulation 07/14/25 Range/Units 17:29 PT 18.2 H (11.1-14.7) Seconds APTT 34.4 (22.3-36.8) Seconds CBC 07/14/25 07/15/25 Range/Units 17:29 05:20 WBC 7.7 6.0 (4.5-10.0) K/mm3 RBC 4.44 4.31 (4.2-5.4) M/mm3 Hgb 13.6 13.2 (12.0-15.0) g/dL Hct 42.7 42.3 (37.0-47.0) % Plt Count 179 147 L (150-375) k/mm3 Lymph # (Auto) 0.98 1.09 (0.9-3.2) K/mm3 [place] # (Auto) 0.5 0.4 (0.1-0.6) K/mm3 Eos # (Auto) 0.1 0.3 (0-0.3) K/mm3 Baso # (Auto) 0.0 0.0 (0.0-0.1) K/mm3 Comprehensive Metabolic Panel 07/14/25 07/15/25 07/15/25 Range/Units 17:29 01:07 05:20 Sodium 136 L 138 138 (137-145) mmol/L Potassium 5.4 H 4.0 4.9 (3.4-5.0) mmol/L Chloride 102 102 102 (98-107) mmol/L Carbon Dioxide 27 30 33 H (22-30) mmol/L BUN 42 H 43 H 42 H (7-17) mg/dL Creatinine 1.63 H 1.57 H 1.64 H (0.7-1.0) mg/dL Glucose 118 H 80 125 H (65-110) mg/dL Calcium 8.6 8.9 9.0 (8.4-10.2) mg/dL AST 25 25 (14-36) U/L ALT 17 16 (6-35) U/L Alkaline Phosphatase 97 91 (38-126) U/L Total Protein 6.6 6.2 L (6.3-8.2) g/dL Albumin 3.5 3.4 L (3.5-5.1) g/dL Intake and Output 07/14/25 07/15/25 07/15/25 23:59 07:59 15:59 Intake Total 17 352.5 Output Total 350 Balance 17 2.5 Intake: IV 17 52.5 dilTIAZem 100 MG/100 ML 100 mg 17 52.5 In 100 ml @ 5 MG/HR 5 mls/hr IV CONT .Q20H STA Rx#:[id number] Oral 300 Output: Urine 350 Other: Number of Bowel Movements Today 0 Patient Weight 07/15/25 23:59 Weight 147.6 kg
--- NOTE | 2025-07-15 13:56 | PM.IMPN ---
Progress Note: A&P Assessment and Plan (1) Atrial flutter with rapid ventricular response: Code(s): I48.92 - Unspecified atrial flutter Status: Acute Plan SVT Atrial flutter with RVR -unclear etiology, may be from sleep apnea -SVT may have improved with adenosine, subsequently in atrial flutter with RVR -TSH within normal limits -electrolytes within normal limits, goal K greater than 4, Mag greater than 2 -K 4.9, Mg 2.3 -rate control: diltiazem -appreciate Cardiology consultation: change dilt gtt to PO dilt 30 mg q.6 hours, consider DC cardioversion, increase Eliquis 2.5 to 5 mg twice daily -anticoagulation Eliquis 5 mg b.i.d. -she may need outpatient atrial flutter ablation Chronic conditions -home meds reconciled -gout: Allopurinol -hyperlipidemia: Atorvastatin -anxiety/depression: BuSpar, sertraline -COPD: Continue home inhaler Breztri, p.r.n. benzonatate, as needed DuoNeb -supplements: Cholecalciferol weekly, ferrous sulfate -type 2 diabetes sliding scale insulin, Accu-Cheks ACS, hypoglycemia protocol, glargine 28 units daily -allergies: Codeine, Flonase -chronic diastolic heart failure: Normal EF, grade 1 diastolic function. Continue home Lasix with potassium supplement -insomnia: Trazodone -bowel regiment on Senokot -RLS: requip -Overactive bladder: mirabegron -GERD: Prilosec -obesity hypoventilation syndrome Diet: Diabetic diet with fluid restriction DVT prophylaxis: Eliquis Code status: Full code Disposition: home in 2-3 days Time Spent With Patient Time: 35 minutes Subjective Date/time seen: 07/15/25 13:56 Interval history: Patient seen and examined. Patient presented with SVT, atrial flutter doing well on diltiazem drip. Potassium and magnesium at goal. Awaiting Cardiology consultation. Patient denies fever, chills, nausea vomiting and diarrhea. She endorses palpitations. Review of Systems Review of Systems: 10 point ROS complete, negative other than what is specified in HPI. Exam Narrative: - GENERAL: Pleasant morbidly obese woman in No acute distress. - EYES: EOMI. Anicteric. - HENT: Moist mucous membranes. - LUNGS: Clear to auscultation bilaterally, no wheezing - CARDIOVASCULAR: Irregularly irregular - ABDOMEN: Soft, non-tender and non-distended. - EXTREMITIES: No edema. Peripheral pulses 2+. - NEUROLOGIC: No focal neurological deficits. CN II-XII grossly intact. - PSYCHIATRIC: Awake, Alert and oriented x 3. flat affect Objective Data Vital Signs Vital Signs: Vital Signs - 24 hr 07/14/25 17:17 07/14/25 17:36 07/14/25 17:51 Temperature 36.9 C Pulse Rate 126 H 126 H 106 H Respiratory Rate 20 17 Blood Pressure 125/98 H 125/98 H Pulse Oximetry 96 94 Oxygen Delivery Nasal Cannula Oxygen Flow Rate 2 07/14/25 18:00 07/14/25 18:01 07/14/25 18:15 Temperature Pulse Rate 127 H 114 H 115 H Respiratory Rate 15 27 H 18 Blood Pressure 101/73 Pulse Oximetry Oxygen Delivery Oxygen Flow Rate 07/14/25 18:16 07/14/25 19:02 07/14/25 19:03 Temperature Pulse Rate 119 H 119 H 116 H Respiratory Rate 24 H 18 16 Blood Pressure 106/62 107/84 Pulse Oximetry Oxygen Delivery Oxygen Flow Rate 07/14/25 19:16 07/14/25 19:17 07/14/25 20:31 Temperature Pulse Rate 115 H 106 H 91 Respiratory Rate 21 H 26 H 18 Blood Pressure 106/84 148/96 H Pulse Oximetry 100 Oxygen Delivery Oxygen Flow Rate 07/14/25 21:00 07/14/25 21:00 07/14/25 21:14 Temperature 36.5 C Pulse Rate 88 93 Respiratory Rate 15 Blood Pressure 111/69 104/63 Pulse Oximetry 100 95 Oxygen Delivery Nasal Cannula Oxygen Flow Rate 2 07/14/25 21:30 07/14/25 22:00 07/14/25 22:21 Temperature Pulse Rate 87 88 Respiratory Rate Blood Pressure 111/69 Pulse Oximetry 96 Oxygen Delivery Nasal Cannula Oxygen Flow Rate 2 07/15/25 00:00 07/15/25 00:00 07/15/25 00:00 Temperature 36.3 C L Pulse Rate 85 85 Respiratory Rate 16 Blood Pressure 105/62 105/62 Pulse Oximetry 96 96 Oxygen Delivery Nasal Cannula Oxygen Flow Rate 2 07/15/25 00:00 07/15/25 02:00 07/15/25 02:11 Temperature Pulse Rate 85 85 85 Respiratory Rate Blood Pressure 112/58 L Pulse Oximetry Oxygen Delivery Oxygen Flow Rate 07/15/25 02:35 07/15/25 03:15 07/15/25 04:00 Temperature 36.3 C L Pulse Rate 85 86 Respiratory Rate 13 Blood Pressure 112/58 L 104/64 Pulse Oximetry 96 96 Oxygen Delivery Nasal Cannula Oxygen Flow Rate 2 07/15/25 04:00 07/15/25 04:00 07/15/25 05:53 Temperature Pulse Rate 86 86 86 Respiratory Rate Blood Pressure 104/64 115/52 L Pulse Oximetry Oxygen Delivery Oxygen Flow Rate 07/15/25 06:00 07/15/25 06:05 07/15/25 07:25 Temperature 36.4 C Pulse Rate 85 86 87 Respiratory Rate 18 Blood Pressure 115/52 L 113/63 Pulse Oximetry 92 Oxygen Delivery Oxygen Flow Rate 07/15/25 07:30 07/15/25 08:00 07/15/25 08:00 Temperature Pulse Rate 89 93 Respiratory Rate Blood Pressure 113/63 Pulse Oximetry 95 Oxygen Delivery Room Air Oxygen Flow Rate 07/15/25 08:00 07/15/25 10:00 07/15/25 10:00 Temperature Pulse Rate 103 H 91 91 Respiratory Rate Blood Pressure Pulse Oximetry Oxygen Delivery Oxygen Flow Rate 07/15/25 10:05 07/15/25 11:51 07/15/25 12:00 Temperature 36.6 C Pulse Rate 91 88 Respiratory Rate 20 Blood Pressure 109/75 Pulse Oximetry 94 93 Oxygen Delivery Room Air Oxygen Flow Rate 07/15/25 12:00 Temperature Pulse Rate 91 Respiratory Rate Blood Pressure Pulse Oximetry Oxygen Delivery Oxygen Flow Rate Intake/Output Intake/Output: Intake & Output 07/12/25 07/13/25 07/14/25 07/15/25 23:59 23:59 23:59 23:59 Intake Total 17 365.0 Output Total 1350 Balance 17 -985.0 Meds/Results Medications: Active Medications Generic Name Dose Route Start Last Admin Trade Name Freq PRN Reason Stop Dose Admin Acetaminophen 650 mg 07/14/25 19:31 Acetaminophen 325 Mg Tablet PO Q4H PRN Mild Pain (1-3) or Fever Apixaban 5 mg 07/15/25 21:00 Apixaban 5 Mg Tablet PO Q12HR [facility] Dextrose 12.5 gm 07/14/25 21:40 Dextrose 50% 25 Gm/50 Ml Syringe IV PUSH PRN PRN Hypoglycemia Protocol Diltiazem HCl 30 mg 07/15/25 12:00 07/15/25 10:37 Diltiazem Hcl 30 Mg Tablet PO 30 mg Q6HR ANAM Administration Furosemide 20 mg 07/15/25 09:00 07/15/25 08:59 Furosemide Inj 40 Mg/4 Ml Vial IV PUSH 20 mg BID ANAM Administration Glucose 15 gm 07/14/25 21:40 Glucose Oral Gel 15 Gm Of Glucse In 37.5 Gm Tube PO PRN PRN Hypoglycemia Protocol Dextrose 1,000 mls @ 100 mls/hr 07/14/25 21:40 Dextrose 5% 1,000 Ml IVPB PRN PRN Hypoglycemia Protocol Insulin Aspart 2 - 5 units 07/15/25 08:00 07/15/25 10:38 Insulin Aspart (*Bkc) 100 Units/Ml SUB-Q Not Given TIDWM A[facility] Protocol Insulin Aspart 1 - 2 units 07/15/25 21:00 Insulin Aspart (*Bkc) 100 Units/Ml SUB-Q HS ANAM Protocol Pantoprazole Sodium 40 mg 07/15/25 09:00 07/15/25 08:59 Pantoprazole 40 Mg Tablet PO 40 mg QAM ANAM Administration Radiology Results: ITS Impressions Chest X-Ray 07/14/25 19:11 Impression: Mild CHF Labs Labs: Laboratory Results - last 24 hr 07/14/25 07/14/25 07/14/25 17:29 20:08 22:14 WBC 7.7 RBC 4.44 Hgb 13.6 Hct 42.7 MCV 96.2 MCH 30.6 MCHC 31.9 L RDW 13.7 Plt Count 179 MPV 10.6 H Immature Gran % (Auto) 0.5 Neut % (Auto) 77.7 H Lymph % (Auto) 12.8 L [place] % (Auto) 6.9 Eos % (Auto) 1.6 Baso % (Auto) 0.5 Lymph # (Auto) 0.98 [place] # (Auto) 0.5 Eos # (Auto) 0.1 Baso # (Auto) 0.0 Abs Immat Gran (auto) 0.04 H Absolute Neuts (auto) 6.0 Absolute Nucleated RBC 0.000 Nucleated RBC % 0.0 PT 18.2 H INR 1.5 APTT 34.4 D-Dimer 0.48 Sodium 136 L Potassium 5.4 H Chloride 102 Carbon Dioxide 27 Anion Gap 7 BUN 42 H Creatinine 1.63 H Estim Creat Clear Calc 41 Estimated GFR 31 L Glucose 118 H POC Capillary Glucose 98 56 L* Hemoglobin A1c Calcium 8.6 Magnesium 1.7 Total Bilirubin 0.8 AST 25 ALT 17 Alkaline Phosphatase 97 Troponin I 0.021 NT-Pro-B Natriuret Pep 5620 H Total Protein 6.6 Albumin 3.5 Lipase 90 TSH (Reflex) 07/14/25 07/14/25 07/14/25 22:21 22:41 23:07 WBC RBC Hgb Hct MCV MCH MCHC RDW Plt Count MPV Immature Gran % (Auto) Neut % (Auto) Lymph % (Auto) [place] % (Auto) Eos % (Auto) Baso % (Auto) Lymph # (Auto) [place] # (Auto) Eos # (Auto) Baso # (Auto) Abs Immat Gran (auto) Absolute Neuts (auto) Absolute Nucleated RBC Nucleated RBC % PT INR APTT D-Dimer Sodium Potassium Chloride Carbon Dioxide Anion Gap BUN Creatinine Estim Creat Clear Calc Estimated GFR Glucose POC Capillary Glucose 96 93 Hemoglobin A1c Calcium Magnesium Total Bilirubin AST ALT Alkaline Phosphatase Troponin I 0.038 H* D NT-Pro-B Natriuret Pep Total Protein Albumin Lipase TSH (Reflex) 07/15/25 07/15/25 07/15/25 00:47 01:07 05:20 WBC 6.0 RBC 4.31 Hgb 13.2 Hct 42.3 MCV 98.1 MCH 30.6 MCHC 31.2 L RDW 13.8 Plt Count 147 L MPV 10.5 H Immature Gran % (Auto) 0.3 Neut % (Auto) 68.6 Lymph % (Auto) 18.3 [place] % (Auto) 7.4 Eos % (Auto) 4.7 H Baso % (Auto) 0.7 Lymph # (Auto) 1.09 [place] # (Auto) 0.4 Eos # (Auto) 0.3 Baso # (Auto) 0.0 Abs Immat Gran (auto) 0.02 Absolute Neuts (auto) 4.1 Absolute Nucleated RBC 0.000 Nucleated RBC % 0.0 PT INR APTT D-Dimer Sodium 138 138 Potassium 4.0 4.9 Chloride 102 102 Carbon Dioxide 30 33 H Anion Gap 6 3 L BUN 43 H 42 H Creatinine 1.57 H 1.64 H Estim Creat Clear Calc 41 39 Estimated GFR 32 L 31 L Glucose 80 125 H POC Capillary Glucose 84 Hemoglobin A1c 6.3 H Calcium 8.9 9.0 Magnesium 2.3 Total Bilirubin 0.6 AST 25 ALT 16 Alkaline Phosphatase 91 Troponin I 0.037 H* NT-Pro-B Natriuret Pep Total Protein 6.2 L Albumin 3.4 L Lipase TSH (Reflex) 1.890 07/15/25 07/15/25 06:48 11:02 WBC RBC Hgb Hct MCV MCH MCHC RDW Plt Count MPV Immature Gran % (Auto) Neut % (Auto) Lymph % (Auto) [place] % (Auto) Eos % (Auto) Baso % (Auto) Lymph # (Auto) [place] # (Auto) Eos # (Auto) Baso # (Auto) Abs Immat Gran (auto) Absolute Neuts (auto) Absolute Nucleated RBC Nucleated RBC % PT INR APTT D-Dimer Sodium Potassium Chloride Carbon Dioxide Anion Gap BUN Creatinine Estim Creat Clear Calc Estimated GFR Glucose POC Capillary Glucose 99 153 H Hemoglobin A1c Calcium Magnesium Total Bilirubin AST ALT Alkaline Phosphatase Troponin I NT-Pro-B Natriuret Pep Total Protein Albumin Lipase TSH (Reflex)
[2025-07-15] MEDS: SENNA/DOCUSATE SODIUM TABLET 1 TAB PO (16:32)
[2025-07-15] MEDS: GABAPENTIN 300 MG CAPSULE PO (16:32)
[2025-07-15] MEDS: MIRABEGRON 25 MG ER TABLET PO (20:53)
[2025-07-15] MEDS: ATORVASTATIN 40 MG TABLET 80 MG PO (20:54)
[2025-07-15] MEDS: APIXABAN 5 MG TABLET PO (20:54)
[2025-07-16] VITALS (14 sets, daily range): BP systolic 98–134; BP diastolic 43–77; PULSE 54–132; RESP 13–28; TEMP 36.4–37.2; O2SAT 93–99
[2025-07-16 04:04] LABS: Anion Gap 4 mmol/L (4-12); Blood Urea Nitrogen 37 mg/dL (7-17); Calcium 8.5 mg/dL (8.4-10.2); Carbon Dioxide 31 mmol/L (22-30); Chloride 103 mmol/L (98-107); Estimated CRCL calculation 50 ml/min; Estimated Glomerular Filt Rate 41; Glucose 109 mg/dL (65-110); Magnesium 1.9 mg/dL (1.6-2.3); Potassium 3.6 mmol/L (3.4-5.0); Sodium 138 mmol/L (137-145)
[2025-07-16] MEDS: GABAPENTIN 300 MG CAPSULE PO ×3 (08:22→16:07)
[2025-07-16] MEDS: MAGNESIUM SULF 2 GM/WATER 50ML 2 GM/50 ML BAG IVPB (08:22)
[2025-07-16] MEDS: LORATADINE 10 MG TABLET PO (08:22)
[2025-07-16] MEDS: SENNA/DOCUSATE SODIUM TABLET 1 TAB PO (08:22)
[2025-07-16] MEDS: FLUTICASONE PROPIONATE 0.05% NA SPR 16 GM BTL (*BKC) 1 SPRAY NASAL (08:23)
[2025-07-16] MEDS: FERROUS SULFATE 325 MG TABLET BY MOUTH (08:23)
[2025-07-16] MEDS: SERTRALINE HCL 50 MG TABLET 100 MG PO (08:23)
[2025-07-16] MEDS: MULTIVITAMINS THERAPEUTIC TAB (*BKC) 1 TABLET PO (08:23)
[2025-07-16] MEDS: FUROSEMIDE 40 MG TABLET PO (08:23)
[2025-07-16] MEDS: PANTOPRAZOLE 40 MG TABLET PO (08:23)
[2025-07-16] MEDS: APIXABAN 5 MG TABLET PO ×2 (08:23→20:46)
[2025-07-16] MEDS: INSULIN GLARGINE (*BKC) 100 UNITS/ML 28 UNITS SUB-Q (08:24)
[2025-07-16] MEDS: POTASSIUM CHLORIDE 20 MEQ ER TABLET 40 MEQ PO (08:31)
[2025-07-16] MEDS: FLUTICASONE/UMECLIDIN/VILANTER 100-62.5-25 MCG ELLIPTA 1 PUFF INHALATION (09:10)
--- NOTE | 2025-07-16 09:26 | P.PNCA_ITS ---
Progress Note: A&P Assessment and Plan (1) Atrial flutter with rapid ventricular response: Code(s): I48.92 - Unspecified atrial flutter <ANDREW Kramer - Last Filed: 07/16/25 11:42> Status: Acute <ANDREW Krmaer - Last Filed: 07/16/25 11:42> Assessment and Plan: 74-year-old female with diastolic dysfunction, diabetes mellitus on insulin, neuropathy, morbid obesity with obesity hypoventilation, chronic respiratory failure on supplemental oxygen at home; pulmonary hypertension, CKD, CIRILO, generalized debility/bed-bound. Patient admitted to the hospital with palpitations associated with dyspnea. Modest improvement in heart rate with IV adenosine via EMS. Patient is in atrial flutter. TSH within normal limits. -Heart rate is generally in the 120's. Increase short-acting p.o. diltiazem to 60mg q6h with holding parameters. This can be later changed to long-acting diltiazem. -patient's home medications show apixaban 2.5 mg p.o. b.i.d.. The dose of the apixaban will be changed to 5 mg p.o. b.i.d. for CVA prophylaxis per dosing guidelines. In addition, apixaban will help patient with DVT prophylaxis as she is morbidly obese and bedbound. -continue to monitor on telemetry. Will consider DC cardioversion if patient has recurrent difficult to control atrial flutter with RVR. Her candidacy for atrial flutter ablation treatment can be determined as an outpatient. <ANDREW Kramer - Last Filed: 07/16/25 11:42> (2) Obesity hypoventilation syndrome: Code(s): E66.2 - Morbid (severe) obesity with alveolar hypoventilation <ANDREW Kramer - Last Filed: 07/16/25 11:42> Status: Acute <ANDREW Kramer - Last Filed: 07/16/25 11:42> Assessment and Plan: Supplemental oxygen. Management as per primary team and pulmonology. <ANDREW Kramer - Last Filed: 07/16/25 11:42> Subjective Date/time seen: 07/16/25 09:26 <ANDREW Kramer - Last Filed: 07/16/25 11:42> Interval history: Cardiology follow up visit for atrial flutter Date of service 07/16/2025: Feeling better today but does feel palpitations and is still short of breath. Heart rate remains elevated. <ANDREW Kramer - Last Filed: 07/16/25 11:42> Review of Systems Review of Systems: General: Positive for generalized fatigue Psychological: Negative for anxiety, depression Ophthalmic: negative for loss of vision ENT: Negative for epistaxis, headaches Allergy and immunology: Negative for hives, nasal congestion Hematologic and lymphatic: Negative for overt bleeding problems Endocrine: Negative for hot flashes, palpitations Respiratory: Positive for dyspnea Cardiovascular: Negative for chest pain, positive for palpitations, dyspnea Gastrointestinal: Negative for abdominal pain, nausea, vomiting, hematochezia Musculoskeletal: Unable to walk Neurological: Positive for generalized weakness, neuropathy Dermatological: Negative for rash, skin discoloration <ANDREW Kramer - Last Filed: 07/16/25 11:42> Exam Narrative: PHYSICAL EXAMINATION: GENERAL: Morbidly obese female, lying down in the bed, Alert, oriented, no acute distress MENTAL STATUS: affect appropriate to mood EYES: Extraocular movements intact, no pallor EARS: External ears appear normal, hearing grossly normal NOSE: Normal and patent, no discharge MOUTH: Mucous membranes moist, tongue normal NECK: Supple, JVD not appreciable CHEST: Diminished breath sounds due to body habitus HEART: Tachycardic, irregular rhythm ABDOMEN: Soft, nontender NEUROLOGICAL: Alert, oriented, normal speech MUSCULOSKELETAL: No major deformity, no amputation EXTREMITIES: Mild nonpitting pedal edema, no clubbing, no cyanosis SKIN: no rash on the exposed area, no cyanosis PSYCHIATRIC: Normal mood, appropriate affect <ANDREW Kramer - Last Filed: 07/16/25 11:42> Objective Data Vital Signs Vital Signs: Vital Signs - 24 hr 07/15/25 10:00 07/15/25 10:00 07/15/25 10:05 Temperature Pulse Rate 91 91 91 Respiratory Rate Blood Pressure Pulse Oximetry Oxygen Delivery Oxygen Flow Rate 07/15/25 11:51 07/15/25 12:00 07/15/25 12:00 Temperature 36.6 C Pulse Rate 88 91 Respiratory Rate 20 Blood Pressure 109/75 Pulse Oximetry 94 93 Oxygen Delivery Room Air Oxygen Flow Rate 07/15/25 14:00 07/15/25 16:00 07/15/25 16:00 Temperature 36.8 C Pulse Rate 99 106 H Respiratory Rate 18 Blood Pressure 123/93 H Pulse Oximetry 95 Oxygen Delivery Room Air Oxygen Flow Rate 07/15/25 16:00 07/15/25 18:00 07/15/25 20:00 Temperature 36.7 C Pulse Rate 109 H 102 H 120 H Respiratory Rate 17 Blood Pressure 125/73 Pulse Oximetry 94 Oxygen Delivery Oxygen Flow Rate 07/15/25 20:00 07/15/25 20:00 07/15/25 22:00 Temperature Pulse Rate 120 H 131 H Respiratory Rate Blood Pressure Pulse Oximetry 90 Oxygen Delivery Nasal Cannula Oxygen Flow Rate 2 07/16/25 00:00 07/16/25 00:00 07/16/25 00:00 Temperature 36.5 C Pulse Rate 127 H 131 H Respiratory Rate 17 Blood Pressure 115/64 Pulse Oximetry 95 95 Oxygen Delivery Nasal Cannula Oxygen Flow Rate 2 07/16/25 02:00 07/16/25 04:00 07/16/25 04:00 Temperature 36.7 C Pulse Rate 128 H 115 H Respiratory Rate 15 Blood Pressure 110/66 Pulse Oximetry 97 97 Oxygen Delivery Nasal Cannula Oxygen Flow Rate 2 07/16/25 04:00 07/16/25 06:00 07/16/25 08:00 Temperature 36.7 C Pulse Rate 128 H 131 H 128 H Respiratory Rate 28 H Blood Pressure 98/59 L Pulse Oximetry 99 Oxygen Delivery Oxygen Flow Rate 07/16/25 09:11 Temperature Pulse Rate Respiratory Rate Blood Pressure Pulse Oximetry 96 Oxygen Delivery Nasal Cannula Oxygen Flow Rate 3 <ANDREW Kramer - Last Filed: 07/16/25 11:42> Intake/Output Intake/Output: Intake & Output 07/13/25 07/14/25 07/15/25 07/16/25 23:59 23:59 23:59 23:59 Intake Total 17 605.0 210 Output Total 3000 490 Balance 17 -2395.0 -280 <ANDREW Kramer - Last Filed: 07/16/25 11:42> Meds/Results Medications: Active Medications Generic Name Dose Route Start Last Admin Trade Name Freq PRN Reason Stop Dose Admin Acetaminophen 650 mg 07/14/25 19:31 Acetaminophen 325 Mg Tablet PO Q4H PRN Mild Pain (1-3) or Fever Albuterol/Ipratropium 3 ml 07/15/25 14:00 Ipratropium 0.5 Mg/Albuterol Sulfate 2.5 Mg (Base) Ampul.Neb 3 Ml INHALATION TIDRT PRN Shortness Of Breath Or Wheezin Allopurinol 100 mg 07/15/25 17:00 07/16/25 08:23 Allopurinol 100 Mg Tablet PO 100 mg BID ANAM Administration Apixaban 5 mg 07/15/25 21:00 07/16/25 08:23 Apixaban 5 Mg Tablet PO 5 mg Q12HR ANAM Administration Atorvastatin Calcium 80 mg 07/15/25 21:00 07/15/25 20:54 Atorvastatin 40 Mg Tablet PO 80 mg HS ANAM Administration Benzonatate 200 mg 07/15/25 14:11 Benzonatate 100 Mg Capsule PO Q8H PRN Cough Buspirone HCl 15 mg 07/15/25 17:00 07/16/25 08:22 Buspirone Hcl 5 Mg Tablet PO 15 mg TID ANAM Administration Dextrose 12.5 gm 07/14/25 21:40 Dextrose 50% 25 Gm/50 Ml Syringe IV PUSH PRN PRN Hypoglycemia Protocol Diltiazem HCl 30 mg 07/15/25 12:00 07/16/25 05:41 Diltiazem Hcl 30 Mg Tablet PO 30 mg Q6HR ANAM Administration Ergocalciferol 1,250 mcg 07/19/25 09:00 Ergocalciferol (Vitamin D2) 1,250 Mcg (50,000 Units) Capsule PO WEEKLY [facility] Ferrous Sulfate 325 mg 07/16/25 09:00 07/16/25 08:23 Ferrous Sulfate 325 Mg Tablet BY MOUTH 325 mg DAILY [facility] Administration Fluticasone Propionate 1 spray 07/16/25 09:00 Fluticasone Propionate 0.05% Na Spr 16 Gm Btl (*Bkc) NASAL DAILY [facility] Fluticasone/Umeclidinium/Vilanterol 1 puff 07/16/25 08:00 07/16/25 09:10 Fluticasone/Umeclidin/Vilanter 100-62.5-25 Mcg Ellipta INHALATION 1 puff DAILYRT ANAM Administration Furosemide 40 mg 07/16/25 09:00 07/16/25 08:23 Furosemide 40 Mg Tablet PO 40 mg DAILY A[facility] Administration Gabapentin 300 mg 07/15/25 17:00 07/16/25 08:22 Gabapentin 300 Mg Capsule PO 300 mg TID ANAM Administration Glucose 15 gm 07/14/25 21:40 Glucose Oral Gel 15 Gm Of Glucse In 37.5 Gm Tube PO PRN PRN Hypoglycemia Protocol Hydrocortisone 1 applic 07/15/25 14:00 Hydrocortisone 1% 30 Gm Cream TOPICAL PRN PRN Itching Dextrose 1,000 mls @ 100 mls/hr 07/14/25 21:40 Dextrose 5% 1,000 Ml IVPB PRN PRN Hypoglycemia Protocol Magnesium Sulfate 2 gm in 50 mls @ 25 mls/hr 07/16/25 08:15 07/16/25 08:22 Magnesium Sulf 2 Gm/Water 50ml IVPB 07/16/25 10:14 25 mls/hr ONCE ONE Administration Insulin Aspart 2 - 5 units 07/15/25 08:00 07/16/25 08:22 Insulin Aspart (*Bkc) 100 Units/Ml SUB-Q Not Given TIDWM [facility] Protocol Insulin Aspart 1 - 2 units 07/15/25 21:00 07/15/25 21:13 Insulin Aspart (*Bkc) 100 Units/Ml SUB-Q Not Given HS [facility] Protocol Insulin Glargine 28 units 07/16/25 09:00 07/16/25 08:24 Insulin Glargine (*Bkc) 100 Units/Ml SUB-Q 28 units QAM ANAM Administration Insulin Glargine 42 units 07/15/25 21:00 07/15/25 22:52 Insulin Glargine (*Bkc) 100 Units/Ml SUB-Q Not Given HS ANAM Loperamide HCl 2 mg 07/15/25 14:00 Loperamide Hcl 2 Mg Capsule PO Q6H PRN Loose Stool Loratadine 10 mg 07/16/25 09:00 07/16/25 08:22 Loratadine 10 Mg Tablet PO 10 mg DAILY [facility] Administration Mirabegron 25 mg 07/15/25 21:00 07/15/25 20:53 Mirabegron 25 Mg Er Tablet PO 25 mg HS ANAM Administration Miscellaneous Information 1 each 07/15/25 14:22 Central Supply Item XX 07/16/25 14:21 PRN PRN Informational Multivitamins Therapeutic 1 tablet 07/16/25 09:00 07/16/25 08:23 Multivitamins Therapeutic Tab (*Bkc) PO 1 tablet DAILY [facility] Administration Naphazoline HCl/Pheniramine Maleate 1 drop 07/15/25 17:00 Naphazoline/Pheniramine Ophth Soln 5 Ml Bottle EACH EYE QID PRN EYE IRRITATION Nitroglycerin 0.4 mg 07/15/25 14:00 Nitroglycerin Sl 0.4 Mg Tablet SUBLINGUAL Q5M PRN Chest Pain Pantoprazole Sodium 40 mg 07/15/25 09:00 07/16/25 08:23 Pantoprazole 40 Mg Tablet PO 40 mg QAM ANAM Administration Ropinirole HCl 4 mg 07/15/25 21:00 07/15/25 20:53 Ropinirole Hcl 1 Mg Tablet PO 4 mg HS ANAM Administration Senna/Docusate Sodium 1 tab 07/15/25 17:00 07/16/25 08:22 Senna/Docusate Sodium Tablet PO 1 tab BID ANAM Administration Sertraline HCl 100 mg 07/16/25 09:00 07/16/25 08:23 Sertraline Hcl 50 Mg Tablet PO 100 mg DAILY [facility] Administration Trazodone HCl 50 mg 07/15/25 21:00 07/15/25 20:53 Trazodone Hcl 50 Mg Tablet PO 50 mg HS ANAM Administration <ANDREW Kramer - Last Filed: 07/16/25 11:42> Radiology Results: ITS Impressions Chest X-Ray 07/14/25 19:11 Impression: Mild CHF <ANDREW Kramer - Last Filed: 07/16/25 11:42> Labs Labs: Laboratory Results - last 24 hr 07/15/25 07/15/25 07/15/25 11:02 16:08 20:07 Sodium Potassium Chloride Carbon Dioxide Anion Gap BUN Creatinine Estim Creat Clear Calc Estimated GFR Glucose POC Capillary Glucose 153 H 132 H 170 H Calcium Magnesium 07/16/25 07/16/25 03:20 07:15 Sodium 138 Potassium 3.6 Chloride 103 Carbon Dioxide 31 H Anion Gap 4 BUN 37 H Creatinine 1.29 H Estim Creat Clear Calc 50 Estimated GFR 41 L Glucose 109 POC Capillary Glucose 117 H Calcium 8.5 Magnesium 1.9 <ANDREW Kramer - Last Filed: 07/16/25 11:42> Attestation Supervising Provider Attestation paroxysmal atrial flutter - continue diltiazem. keep NPOpMN for possible SOPHIA/DCCV with anesthesia tomorrow if she does not convert. continue anticoagulation. follow up TTE <Bryn Espinosa MD - Last Filed: 07/16/25 13:31>
--- NOTE | 2025-07-16 13:15 | P.PNIM_ITS ---
Progress Note: A&P Assessment and Plan (1) Atrial flutter with rapid ventricular response: Code(s): I48.92 - Unspecified atrial flutter Status: Acute Plan SVT, resolved Atrial fibrillation/flutter with RVR -unclear etiology, may be from sleep apnea. TSH WNL -SVT may have improved with adenosine, subsequently in atrial flutter/fibrillation with RVR -will replace electrolytes as needed goal K greater than 4, Mag greater than 2 -K 3.6, giving 40mEq KCL -Mg 1.9, giving 2g mag sulfate -rate control: diltiazem -appreciate Cardiology consultation: PO dilt 30->60 mg q.6 hours, consider DC c ardioversion, full dose eliquis -anticoagulation Eliquis 5 mg b.i.d. -she may need outpatient atrial flutter ablation -continue monitoring telemetry: Heart rate going up to 130, irregular Chronic conditions -gout: Allopurinol -hyperlipidemia: Atorvastatin -anxiety/depression: BuSpar, sertraline -COPD: Continue home inhaler Breztri, p.r.n. benzonatate, as needed DuoNeb -supplements: Cholecalciferol weekly, ferrous sulfate -type 2 diabetes sliding scale insulin, Accu-Cheks ACS, hypoglycemia protocol, glargine 28 units daily and 42 units nightly -allergies: Codeine, Flonase -chronic diastolic heart failure: Normal EF, grade 1 diastolic function. Continue home Lasix with potassium supplement -insomnia: Trazodone -bowel regiment on Senokot -RLS: requip -Overactive bladder: mirabegron -GERD: Prilosec -obesity hypoventilation syndrome Diet: Diabetic diet with fluid restriction DVT prophylaxis: Eliquis Code status: Full code Disposition: home in 2-3 days, monitor in IMU Time Spent With Patient Time: 35 minutes Subjective Date/time seen: 07/16/25 13:15 Interval history: Patient seen and examined. She is doing well no new complaints. K 3.6 giving 40mEq KCL, Mg 1.9 giving 2g mag sulfate. Patient heart rate was up to 130s this morning. Cardiology team has increased dose of diltiazem to 60mg QID. Will continue to monitor. She denies fever, chills, nausea vomiting, diarrhea, dyspnea, chest pain. Review of Systems Review of Systems: 10 point ROS complete, negative other th an what is specified in HPI. Exam Narrative: - GENERAL: Pleasant morbidly obese woma n in No acute distress. - EYES: EOMI. Anicteric. - HENT: Moist mucous membranes. - LUNGS: Clear to auscultation bilateral ly, no wheezing - CARDIOVASCULAR: Irregularly irregular , tachycardic - ABDOMEN: Soft, non-tender and non-dist ended. - EXTREMITIES: No edema. Peripheral puls es 2+. - NEUROLOGIC: No focal neurological defi cits. CN II-XII grossly intact. - PSYCHIATRIC: Awake, Alert and oriented x 3. flat affect Objective Data Vital Signs Vital Signs: Vital Signs - 24 hr 07/15/25 14:00 07/15/25 16:00 07/15/25 16:00 Temperature 36.8 C Pulse Rate 99 106 H Respiratory Rate 18 Blood Pressure 123/93 H Pulse Oximetry 95 Oxygen Delivery Room Air Oxygen Flow Rate 07/15/25 16:00 07/15/25 18:00 07/15/25 20:00 Temperature 36.7 C Pulse Rate 109 H 102 H 120 H Respiratory Rate 17 Blood Pressure 125/73 Pulse Oximetry 94 Oxygen Delivery Oxygen Flow Rate 07/15/25 20:00 07/15/25 20:00 07/15/25 22:00 Temperature Pulse Rate 120 H 131 H Respiratory Rate Blood Pressure Pulse Oximetry 90 Oxygen Delivery Nasal Cannula Oxygen Flow Rate 2 07/16/25 00:00 07/16/25 00:00 07/16/25 00:00 Temperature 36.5 C Pulse Rate 127 H 131 H Respiratory Rate 17 Blood Pressure 115/64 Pulse Oximetry 95 95 Oxygen Delivery Nasal Cannula Oxygen Flow Rate 2 07/16/25 02:00 07/16/25 04:00 07/16/25 04:00 Temperature 36.7 C Pulse Rate 128 H 115 H Respiratory Rate 15 Blood Pressure 110/66 Pulse Oximetry 97 97 Oxygen Delivery Nasal Cannula Oxygen Flow Rate 2 07/16/25 04:00 07/16/25 06:00 07/16/25 08:00 Temperature 36.7 C Pulse Rate 128 H 131 H 128 H Respiratory Rate 28 H Blood Pressure 98/59 L Pulse Oximetry 99 Oxygen Delivery Oxygen Flow Rate 07/16/25 08:00 07/16/25 08:00 07/16/25 09:11 Temperature Pulse Rate 130 H Respiratory Rate Blood Pressure Pulse Oximetry 93 96 Oxygen Delivery Nasal Cannula Nasal Cannula Oxygen Flow Rate 2 3 07/16/25 09:35 07/16/25 10:00 07/16/25 12:00 Temperature 37.2 C Pulse Rate 122 H 132 H Respiratory Rate 18 Blood Pressure 131/77 Pulse Oximetry 94 95 Oxygen Delivery Nasal Cannula Oxygen Flow Rate 2 07/16/25 12:00 07/16/25 12:00 Temperature Pulse Rate 130 H Respiratory Rate Blood Pressure Pulse Oximetry 94 Oxygen Delivery Nasal Cannula Oxygen Flow Rate 2 Intake/Output Intake/Output: Intake & Output 07/13/25 07/14/25 07/15/25 07/16/25 23:59 23:59 23:59 23:59 Intake Total 17 605.0 650 Output Total 3000 490 Balance 17 -2395.0 160 Meds/Results Medications: Active Medications Generic Name Dose Route Start Last Admin Trade Name Freq PRN Reason Stop Dose Admin Acetaminophen 650 mg 07/14/25 19:31 Acetaminophen 325 Mg Tablet PO Q4H PRN Mild Pain (1-3) or Fever Albuterol/Ipratropium 3 ml 07/15/25 14:00 Ipratropium 0.5 Mg/Albuterol Sulfate 2.5 Mg (Base) Ampul.Neb 3 Ml INHALATION TIDRT PRN Shortness Of Breath Or Wheezin Allopurinol 100 mg 07/15/25 17:00 07/16/25 08:23 Allopurinol 100 Mg Tablet PO 100 mg BID ANAM Administration Apixaban 5 mg 07/15/25 21:00 07/16/25 08:23 Apixaban 5 Mg Tablet PO 5 mg Q12HR ANAM Administration Atorvastatin Calcium 80 mg 07/15/25 21:00 07/15/25 20:54 Atorvastatin 40 Mg Tablet PO 80 mg HS ANAM Administration Benzonatate 200 mg 07/15/25 14:11 Benzonatate 100 Mg Capsule PO Q8H PRN Cough Buspirone HCl 15 mg 07/15/25 17:00 07/16/25 12:03 Buspirone Hcl 5 Mg Tablet PO 15 mg TID ANAM Administration Dextrose 12.5 gm 07/14/25 21:40 Dextrose 50% 25 Gm/50 Ml Syringe IV PUSH PRN PRN Hypoglycemia Protocol Diltiazem HCl 60 mg 07/16/25 12:00 07/16/25 12:03 Diltiazem Hcl 60 Mg Tablet PO 60 mg Q6HR ANAM Administration Ergocalciferol 1,250 mcg 07/19/25 09:00 Ergocalciferol (Vitamin D2) 1,250 Mcg (50,000 Units) Capsule PO WEEKLY ANAM Ferrous Sulfate 325 mg 07/16/25 09:00 07/16/25 08:23 Ferrous Sulfate 325 Mg Tablet BY MOUTH 325 mg DAILY ANAM Administration Fluticasone Propionate 1 spray 07/16/25 09:00 07/16/25 08:23 Fluticasone Propionate 0.05% Na Spr 16 Gm Btl (*Bkc) NASAL 1 spray DAILY ANAM Administration Fluticasone/Umeclidinium/Vilanterol 1 puff 07/16/25 08:00 07/16/25 09:10 Fluticasone/Umeclidin/Vilanter 100-62.5-25 Mcg Ellipta INHALATION 1 puff DAILYRT ANAM Administration Furosemide 40 mg 07/16/25 09:00 07/16/25 08:23 Furosemide 40 Mg Tablet PO 40 mg DAILY ANAM Administration Gabapentin 300 mg 07/15/25 17:00 07/16/25 12:03 Gabapentin 300 Mg Capsule PO 300 mg TID ANAM Administration Glucose 15 gm 07/14/25 21:40 Glucose Oral Gel 15 Gm Of Glucse In 37.5 Gm Tube PO PRN PRN Hypoglycemia Protocol Hydrocortisone 1 applic 07/15/25 14:00 Hydrocortisone 1% 30 Gm Cream TOPICAL PRN PRN Itching Dextrose 1,000 mls @ 100 mls/hr 07/14/25 21:40 Dextrose 5% 1,000 Ml IVPB PRN PRN Hypoglycemia Protocol Insulin Aspart 2 - 5 units 07/15/25 08:00 07/16/25 12:19 Insulin Aspart (*Bkc) 100 Units/Ml SUB-Q Not Given TIDWM [facility] Protocol Insulin Aspart 1 - 2 units 07/15/25 21:00 07/15/25 21:13 Insulin Aspart (*Bkc) 100 Units/Ml SUB-Q Not Given HS [facility] Protocol Insulin Glargine 28 units 07/16/25 09:00 07/16/25 08:24 Insulin Glargine (*Bkc) 100 Units/Ml SUB-Q 28 units QAM ANAM Administration Insulin Glargine 42 units 07/15/25 21:00 07/15/25 22:52 Insulin Glargine (*Bkc) 100 Units/Ml SUB-Q Not Given HS ANAM Loperamide HCl 2 mg 07/15/25 14:00 Loperamide Hcl 2 Mg Capsule PO Q6H PRN Loose Stool Loratadine 10 mg 07/16/25 09:00 07/16/25 08:22 Loratadine 10 Mg Tablet PO 10 mg DAILY ANAM Administration Mirabegron 25 mg 07/15/25 21:00 07/15/25 20:53 Mirabegron 25 Mg Er Tablet PO 25 mg HS ANAM Administration Miscellaneous Information 1 each 07/15/25 14:22 Central Supply Item XX 07/16/25 14:21 PRN PRN Informational Multivitamins Therapeutic 1 tablet 07/16/25 09:00 07/16/25 08:23 Multivitamins Therapeutic Tab (*Bkc) PO 1 tablet DAILY ANAM Administration Naphazoline HCl/Pheniramine Maleate 1 drop 07/15/25 17:00 Naphazoline/Pheniramine Ophth Soln 5 Ml Bottle EACH EYE QID PRN EYE IRRITATION Nitroglycerin 0.4 mg 07/15/25 14:00 Nitroglycerin Sl 0.4 Mg Tablet SUBLINGUAL Q5M PRN Chest Pain Pantoprazole Sodium 40 mg 07/15/25 09:00 07/16/25 08:23 Pantoprazole 40 Mg Tablet PO 40 mg QAM ANAM Administration Ropinirole HCl 4 mg 07/15/25 21:00 07/15/25 20:53 Ropinirole Hcl 1 Mg Tablet PO 4 mg HS ANAM Administration Senna/Docusate Sodium 1 tab 07/15/25 17:00 07/16/25 08:22 Senna/Docusate Sodium Tablet PO 1 tab BID ANAM Administration Sertraline HCl 100 mg 07/16/25 09:00 07/16/25 08:23 Sertraline Hcl 50 Mg Tablet PO 100 mg DAILY ANAM Administration Trazodone HCl 50 mg 07/15/25 21:00 07/15/25 20:53 Trazodone Hcl 50 Mg Tablet PO 50 mg HS ANAM Administration Radiology Results: ITS Impressions Chest X-Ray 07/14/25 19:11 Impression: Mild CHF Labs Labs: Laboratory Results - last 24 hr 07/15/25 07/15/25 07/16/25 16:08 20:07 03:20 Sodium 138 Potassium 3.6 Chloride 103 Carbon Dioxide 31 H Anion Gap 4 BUN 37 H Creatinine 1.29 H Estim Creat Clear Calc 50 Estimated GFR 41 L Glucose 109 POC Capillary Glucose 132 H 170 H Calcium 8.5 Magnesium 1.9 07/16/25 07/16/25 07:15 12:04 Sodium Potassium Chloride Carbon Dioxide Anion Gap BUN Creatinine Estim Creat Clear Calc Estimated GFR Glucose POC Capillary Glucose 117 H 151 H Calcium Magnesium
[2025-07-16] MEDS: INSULIN GLARGINE (*BKC) 100 UNITS/ML 42 UNITS SUB-Q (20:45)
[2025-07-16] MEDS: MIRABEGRON 25 MG ER TABLET PO (20:46)
[2025-07-16] MEDS: ATORVASTATIN 40 MG TABLET 80 MG PO (20:46)
[2025-07-17] VITALS (18 sets, daily range): BP systolic 102–136; BP diastolic 55–91; PULSE 85–110; RESP 14–20; TEMP 36.4–36.8; O2SAT 90–100
--- NOTE | 2025-07-17 | ECHO_ITS ---
Patient Info Name: Delilah Ludwig Age: 74 years : 1950 Gender: Female Ht: 62 in Wt: 323 lbs BSA: 2.63 m2 HR: 87 bpm BP: 130 / 55 mmHg Heart Rhythm: Sinus Rhythm Technical Quality: Fair Exam Date: 07/17/2025 2:23 PM Patient Status: I Admit Date: 07/15/2025 Exam Type: CA echo dop color flow w con Complete two-dimensional, color flow and Doppler transthoracic echocardiogram is performed with contrast to opacify the left ventricle and to improve the deliniation of the left ventricle endocardial borders. Staff Referring Physician: Michael De La Torre MD Chemical Equipment Sales Engineer: Michele Johnson III Attending Provider: Latosha Cornelius Contrast/Agitated Saline Contrast/Ag. Saline: Definity Amount: 2.00 ml Administered By: Michele Johnson III Existing IV Access: Yes IV Access Condition: patent with no signs of infiltration Summary 1. Left ventricular chamber dimension is mildly enlarged. 2. Left ventricular systolic function is mildly reduced, estimated at 45-50. 3. There is mildly increased left ventricular wall thickness. 4. The left ventricular diastolic function is normal. 5. Left atrial chamber dimension is moderately enlarged. 6. There is mild to moderate mitral valve regurgitation. 7. There is moderate tricuspid valve regurgitation. 8. Moderate pulmonary hypertension, estimated pulmonary arterial systolic pressure is 59 mmHg. 9. There is mild pulmonic regurgitation. 10. Right atrial chamber dimension is mildly enlarged. Left Ventricle Left ventricular chamber dimension is mildly enlarged. Left ventricular systolic function is mildly reduced, estimated at 45-50. There is mildly increased left ventricular wall thickness. The left ventricular diastolic function is normal. Right Ventricle Right ventricular chamber dimension is normal. Right ventricular systolic function is normal. Left Atria Left atrial chamber dimension is moderately enlarged. Right Atria Right atrial chamber dimension is mildly enlarged. Atrial Septum Intact interatrial septum visualized by color flow imaging. Aortic Valve The aortic valve is trileaflet. There is mild aortic valve sclerosis. There is no aortic valve stenosis. There is trace aortic valve regurgitation. Pulmonic Valve The pulmonic valve is normal. There is no pulmonic valve stenosis. There is mild pulmonic regurgitation. Mitral Valve The mitral valve has normal leaflets. There is no mitral valve stenosis. There is mild to moderate mitral valve regurgitation. Tricuspid Valve The tricuspid valve leaflets are normal. There is no significant tricuspid valve stenosis. There is moderate tricuspid valve regurgitation. Moderate pulmonary hypertension, estimated pulmonary arterial systolic pressure is 59 mmHg. Pericardium/Pleural The pericardium appears normal. There is no pericardial effusion. Inferior Vena Cava Normal inferior vena cava with >50% collapse upon inspiration consistent with normal right atrial pressure, 10 mmHg. Aorta The aortic root size at the sinus of Valsalva is normal. There is mild aortic atherosclerosis. Left Ventricular Outflow Tract Name Value Normal LVOT 2D LVOT Diameter 2.3 cm LVOT Doppler LVOT Peak Velocity 80 cm/s LVOT Peak Gradient 3 mmHg LVOT Mean Gradient 1 mmHg LVOT VTI 15 cm LVOT VTI/AV VTI Ratio 0.7 LVOT Stroke Volume 62 ml LVOT CO 5.1 l/min LVOT CI 2.0 l/min/m2 Pulmonic Valve Name Value Normal PV Doppler PV Peak Velocity 93 cm/s PV Peak Gradient 3 mmHg PV Mean Gradient 2 mmHg Mitral Valve Name Value Normal MV Doppler MV Peak Gradient 8 mmHg MV Mean Gradient 3 mmHg MV Area (Cont Eq VTI) 2.3 cm2 MV Regurgitation Doppler MR Peak Gradient 49 mmHg MV Diastolic Function MV E Peak Velocity 130 cm/s MV A Peak Velocity 73 cm/s MV E/A 1.8 MV Decel Time (PW) 134 ms MV Annular TDI MV E/e' (Septal) 18.7 MV E/e' (Lateral) 13.0 MV E/e' (Average) 15.9 Tricuspid Valve Name Value Normal TV Regurgitation Doppler TR Peak Velocity 349 cm/s TR Peak Gradient 49 mmHg Estimated PAP/RSVP RA Pressure 10 mmHg <=5 PA Systolic Pressure 59 mmHg <36 RV Systolic Pressure 59 mmHg <36 TV Annular TDI TV Lateral Gisele s' Velocity 9.4 cm/s >=9.5 Aortic Valve Name Value Normal AV Doppler AV Peak Velocity 122 cm/s AV Peak Gradient 6 mmHg AV Mean Gradient 3 mmHg AV VTI 23 cm AV Area (Cont Eq VTI) 2.7 cm2 >=3.0 AV Area (Cont Eq Henrique) 2.7 cm2 AV DI (Henrique) 0.65 AV Regurgitation 2D LVOT Area 4.1 cm2 Ventricles Name Value Normal LV Dimensions 2D/MM IVS Diastolic Thickness (2D) 1.2 cm 0.6-1.0 LVID Diastole (2D) 5.2 cm 3.8-5.2 LVIW Diastolic Thickness (2D) 1.0 cm 0.6-0.9 LVID Systole (2D) 4.2 cm 2.2-3.5 LVOT Diameter 2.3 cm LV Mass (2D Cubed) 224.45 g 67.00-162.00 LV Mass Index (2D Cubed) 85 g/m2 43-95 Relative Wall Thickness (2D) 0.40 <=0.42 LV Fractional Shortening/Ejection Fraction 2D/MM LV Fractional Shortening (2D) 19 % 27-45 LV EF (2D Teichholz) 41 % LV Diastolic Volume (4C MOD) 107 ml LV EF (4C MOD) 41 % LV Diastolic Volume (2C MOD) 78 ml LV EF (2C MOD) 47 % LV Diastolic Volume (BP MOD) 111 ml 46-106 LV Diastolic Volume Index (BP MOD) 42 ml/m2 29-61 LV Systolic Volume (BP MOD) 57 ml 14-42 LV Systolic Volume Index (BP MOD) 21 ml/m2 8-24 LV EF (BP MOD) 49 % 54-74 LV Diastolic Length (4C) 7.8 cm LV Systolic Length (4C) 7.3 cm LV Stroke Volume (4C MOD) 44 ml Atria Name Value Normal LA Dimensions LA Volume (4C A-L) 88 ml LA Volume (BP A-L) 110 ml RA Dimensions RA Systolic Major Bowie Length (4C) 6.0 cm 2.2-2.8 RA Area (4C) 22.9 cm2 <=18.0 Report Signatures
[2025-07-17 04:41] LABS: Anion Gap 5 mmol/L (4-12); Blood Urea Nitrogen 36 mg/dL (7-17); Calcium 8.9 mg/dL (8.4-10.2); Carbon Dioxide 32 mmol/L (22-30); Chloride 102 mmol/L (98-107); Estimated CRCL calculation 47 ml/min; Estimated Glomerular Filt Rate 38; Glucose 122 mg/dL (65-110); Magnesium 2.2 mg/dL (1.6-2.3); Potassium 3.5 mmol/L (3.4-5.0); Sodium 139 mmol/L (137-145)
[2025-07-17] MEDS: FLUTICASONE PROPIONATE 0.05% NA SPR 16 GM BTL (*BKC) 1 SPRAY NASAL (08:06)
[2025-07-17] MEDS: PANTOPRAZOLE 40 MG TABLET PO (08:07)
[2025-07-17] MEDS: SERTRALINE HCL 50 MG TABLET 100 MG PO (08:07)
[2025-07-17] MEDS: SENNA/DOCUSATE SODIUM TABLET 1 TAB PO ×2 (08:07→17:02)
[2025-07-17] MEDS: FERROUS SULFATE 325 MG TABLET BY MOUTH (08:07)
[2025-07-17] MEDS: LORATADINE 10 MG TABLET PO (08:08)
[2025-07-17] MEDS: MULTIVITAMINS THERAPEUTIC TAB (*BKC) 1 TABLET PO (08:08)
[2025-07-17] MEDS: GABAPENTIN 300 MG CAPSULE PO ×3 (08:08→17:02)
[2025-07-17] MEDS: FUROSEMIDE 40 MG TABLET PO (08:08)
[2025-07-17] MEDS: APIXABAN 5 MG TABLET PO ×2 (08:08→21:24)
[2025-07-17] MEDS: INSULIN GLARGINE (*BKC) 100 UNITS/ML 28 UNITS SUB-Q (08:13)
--- NOTE | 2025-07-17 08:24 | P.PNIM_ITS ---
Progress Note: A&P Assessment and Plan (1) Atrial flutter with rapid ventricular response: Code(s): I48.92 - Unspecified atrial flutter Status: Acute Plan SVT, resolved Atrial fibrillation/flutter with RVR -unclear etiology, may be from sleep apnea. TSH WNL -SVT may have improved with adenosine, subsequently in atrial flutter/fibrillation with RVR -will replace electrolytes as needed goal K greater than 4, Mag greater than 2 -K 3.6, giving 40mEq KCL -Mg 1.9, giving 2g mag sulfate -rate control: diltiazem -appreciate Cardiology consultation: PO dilt 30->60 mg q.6 hours, consider DC c ardioversion, full dose eliquis -anticoagulation Eliquis 5 mg b.i.d. -she may need outpatient atrial flutter ablation -continue monitoring telemetry: Heart rate going up to 130, irregular Chronic conditions -gout: Allopurinol -hyperlipidemia: Atorvastatin -anxiety/depression: BuSpar, sertraline -COPD: Continue home inhaler Breztri, p.r.n. benzonatate, as needed DuoNeb -supplements: Cholecalciferol weekly, ferrous sulfate -type 2 diabetes sliding scale insulin, Accu-Cheks ACS, hypoglycemia protocol, glargine 28 units daily and 42 units nightly -allergies: Codeine, Flonase -chronic diastolic heart failure: Normal EF, grade 1 diastolic function. Continue home Lasix with potassium supplement -insomnia: Trazodone -bowel regiment on Senokot -RLS: requip -Overactive bladder: mirabegron -GERD: Prilosec -obesity hypoventilation syndrome Diet: Diabetic diet with fluid restriction DVT prophylaxis: Eliquis Code status: Full code Disposition: home in 2-3 days, monitor in IMU Subjective Date/time seen: 07/17/25 08:24 Interval history: Patient is a pleasantly confused. Patient is currently diltiazem 60 mg p.o. q.6 hours and Eliquis 5 mg p.o. b.i.d. Review of Systems Review of Systems: 10 point ROS complete, negative other th an what is specified in HPI. All systems reviewed & are unremarkable except as noted in HPI and below (Subjective) Exam Narrative: - GENERAL: Pleasant morbidly obese woma n in No acute distress. - EYES: EOMI. Anicteric. - HENT: Moist mucous membranes. - LUNGS: Clear to auscultation bilateral ly, no wheezing - CARDIOVASCULAR: Irregularly irregular , tachycardic - ABDOMEN: Soft, non-tender and non-dist ended. - EXTREMITIES: No edema. Peripheral puls es 2+. - NEUROLOGIC: No focal neurological defi cits. CN II-XII grossly intact. - PSYCHIATRIC: Awake, Alert and oriented x 3. flat affect Const: General: comfortable and no acute distress Other: A&O x3, obese HENMT: Mouth: Yes moist mucous membranes Eyes: Pupils: Equal, round and reactive pupils present Neck: Neck: supple Resp: Effort & Inspection: normal respiratory effort Auscultation: crackles Cardio: Rate: regular rate Rhythm: regular rhythm Heart sounds: no murmurs GI: Inspection: non-distended : General: Yes bladder normal to palpation Bimanual exam- vagina & uterus: bladder normal to palpation Neuro: Cranial nerves: Yes Equal, round and reactive pupils present Other: Globally weak Extrem: Other: 1-2 +pitting edema bilateral lower extre mities with chronic skin thickening in the dependent portions Psych: Mental Status: mental status grossly normal Objective Data Vital Signs Vital Signs: Vital Signs - 24 hr 07/16/25 09:11 07/16/25 09:35 07/16/25 10:00 Temperature Pulse Rate 122 H Respiratory Rate Blood Pressure Pulse Oximetry 96 94 Oxygen Delivery Nasal Cannula Nasal Cannula Oxygen Flow Rate 3 2 07/16/25 12:00 07/16/25 12:00 07/16/25 12:00 Temperature 98.9 F Pulse Rate 132 H 130 H Respiratory Rate 18 Blood Pressure 131/77 Pulse Oximetry 95 94 Oxygen Delivery Nasal Cannula Oxygen Flow Rate 2 07/16/25 14:00 07/16/25 16:00 07/16/25 16:00 Temperature Pulse Rate 113 H 98 Respiratory Rate Blood Pressure Pulse Oximetry 93 Oxygen Delivery Nasal Cannula Oxygen Flow Rate 2 07/16/25 16:00 07/16/25 18:00 07/16/25 20:00 Temperature 98.5 F 97.5 F L Pulse Rate 54 L 106 H 111 H Respiratory Rate 20 13 Blood Pressure 115/43 L 134/72 Pulse Oximetry 94 96 Oxygen Delivery Oxygen Flow Rate 07/16/25 20:00 07/16/25 22:00 07/17/25 00:00 Temperature 97.8 F Pulse Rate 106 H 89 103 H Respiratory Rate 14 Blood Pressure 136/91 H Pulse Oximetry 95 Oxygen Delivery Oxygen Flow Rate 07/17/25 00:00 07/17/25 02:00 07/17/25 03:45 Temperature 97.5 F L Pulse Rate 86 86 87 Respiratory Rate 20 Blood Pressure 104/64 Pulse Oximetry 94 Oxygen Delivery Oxygen Flow Rate 07/17/25 04:00 07/17/25 06:00 07/17/25 07:31 Temperature 98.0 F Pulse Rate 91 85 103 H Respiratory Rate 20 Blood Pressure 130/55 L Pulse Oximetry 100 Oxygen Delivery Oxygen Flow Rate Intake/Output Intake/Output: Intake & Output 07/14/25 07/15/25 07/16/25 07/17/25 23:59 23:59 23:59 23:59 Intake Total 17 605.0 1570 626 Output Total 3000 1490 550 Balance 17 -2395.0 80 76 Meds/Results Medications: Active Medications Generic Name Dose Route Start Last Admin Trade Name Freq PRN Reason Stop Dose Admin Acetaminophen 650 mg 07/14/25 19:31 Acetaminophen 325 Mg Tablet PO Q4H PRN Mild Pain (1-3) or Fever Albuterol/Ipratropium 3 ml 07/15/25 14:00 Ipratropium 0.5 Mg/Albuterol Sulfate 2.5 Mg (Base) Ampul.Neb 3 Ml INHALATION TIDRT PRN Shortness Of Breath Or Wheezin Allopurinol 100 mg 07/15/25 17:00 07/17/25 08:07 Allopurinol 100 Mg Tablet PO 100 mg BID ANAM Administration Apixaban 5 mg 07/15/25 21:00 07/17/25 08:08 Apixaban 5 Mg Tablet PO 5 mg Q12HR ANAM Administration Atorvastatin Calcium 80 mg 07/15/25 21:00 07/16/25 20:46 Atorvastatin 40 Mg Tablet PO 80 mg HS ANAM Administration Benzonatate 200 mg 07/15/25 14:11 Benzonatate 100 Mg Capsule PO Q8H PRN Cough Buspirone HCl 15 mg 07/15/25 17:00 07/17/25 08:07 Buspirone Hcl 5 Mg Tablet PO 15 mg TID ANAM Administration Dextrose 12.5 gm 07/14/25 21:40 Dextrose 50% 25 Gm/50 Ml Syringe IV PUSH PRN PRN Hypoglycemia Protocol Diltiazem HCl 60 mg 07/16/25 12:00 07/17/25 06:17 Diltiazem Hcl 60 Mg Tablet PO 60 mg Q6HR ANAM Administration Ergocalciferol 1,250 mcg 07/19/25 09:00 Ergocalciferol (Vitamin D2) 1,250 Mcg (50,000 Units) Capsule PO WEEKLY ANAM Ferrous Sulfate 325 mg 07/16/25 09:00 07/17/25 08:07 Ferrous Sulfate 325 Mg Tablet BY MOUTH 325 mg DAILY ANAM Administration Fluticasone Propionate 1 spray 07/16/25 09:00 07/17/25 08:06 Fluticasone Propionate 0.05% Na Spr 16 Gm Btl (*Bkc) NASAL 1 spray DAILY ANAM Administration Fluticasone/Umeclidinium/Vilanterol 1 puff 07/16/25 08:00 07/16/25 09:10 Fluticasone/Umeclidin/Vilanter 100-62.5-25 Mcg Ellipta INHALATION 1 puff DAILYRT ANAM Administration Furosemide 40 mg 07/16/25 09:00 07/17/25 08:08 Furosemide 40 Mg Tablet PO 40 mg DAILY ANAM Administration Gabapentin 300 mg 07/15/25 17:00 07/17/25 08:08 Gabapentin 300 Mg Capsule PO 300 mg TID ANAM Administration Glucose 15 gm 07/14/25 21:40 Glucose Oral Gel 15 Gm Of Glucse In 37.5 Gm Tube PO PRN PRN Hypoglycemia Protocol Hydrocortisone 1 applic 07/15/25 14:00 Hydrocortisone 1% 30 Gm Cream TOPICAL PRN PRN Itching Dextrose 1,000 mls @ 100 mls/hr 07/14/25 21:40 Dextrose 5% 1,000 Ml IVPB PRN PRN Hypoglycemia Protocol Insulin Aspart 2 - 5 units 07/15/25 08:00 07/17/25 08:05 Insulin Aspart (*Bkc) 100 Units/Ml SUB-Q Not Given TIDWM [facility] Protocol Insulin Aspart 1 - 2 units 07/15/25 21:00 07/16/25 20:28 Insulin Aspart (*Bkc) 100 Units/Ml SUB-Q Not Given HS ANAM Protocol Insulin Glargine 28 units 07/16/25 09:00 07/17/25 08:13 Insulin Glargine (*Bkc) 100 Units/Ml SUB-Q 28 units QAM ANAM Administration Insulin Glargine 42 units 07/15/25 21:00 07/16/25 20:45 Insulin Glargine (*Bkc) 100 Units/Ml SUB-Q 42 units HS ANAM Administration Loperamide HCl 2 mg 07/15/25 14:00 Loperamide Hcl 2 Mg Capsule PO Q6H PRN Loose Stool Loratadine 10 mg 07/16/25 09:00 07/17/25 08:08 Loratadine 10 Mg Tablet PO 10 mg DAILY ANAM Administration Mirabegron 25 mg 07/15/25 21:00 07/16/25 20:46 Mirabegron 25 Mg Er Tablet PO 25 mg HS ANAM Administration Multivitamins Therapeutic 1 tablet 07/16/25 09:00 07/17/25 08:08 Multivitamins Therapeutic Tab (*Bkc) PO 1 tablet DAILY ANAM Administration Naphazoline HCl/Pheniramine Maleate 1 drop 07/15/25 17:00 Naphazoline/Pheniramine Ophth Soln 5 Ml Bottle EACH EYE QID PRN EYE IRRITATION Nitroglycerin 0.4 mg 07/15/25 14:00 Nitroglycerin Sl 0.4 Mg Tablet SUBLINGUAL Q5M PRN Chest Pain Pantoprazole Sodium 40 mg 07/15/25 09:00 07/17/25 08:07 Pantoprazole 40 Mg Tablet PO 40 mg QAM ANAM Administration Ropinirole HCl 4 mg 07/15/25 21:00 07/16/25 20:46 Ropinirole Hcl 1 Mg Tablet PO 4 mg HS ANAM Administration Senna/Docusate Sodium 1 tab 07/15/25 17:00 07/17/25 08:07 Senna/Docusate Sodium Tablet PO 1 tab BID ANAM Administration Sertraline HCl 100 mg 07/16/25 09:00 07/17/25 08:07 Sertraline Hcl 50 Mg Tablet PO 100 mg DAILY ANAM Administration Trazodone HCl 50 mg 07/15/25 21:00 07/16/25 20:46 Trazodone Hcl 50 Mg Tablet PO 50 mg HS ANAM Administration Radiology Results: ITS Impressions Chest X-Ray 07/14/25 19:11 Impression: Mild CHF Labs Labs: Laboratory Results - last 24 hr 07/16/25 07/16/2507/16/25 12:04 16:35 20:16 Sodium Potassium Chloride Carbon Dioxide Anion Gap BUN Creatinine Estim Creat Clear Calc Estimated GFR Glucose POC Capillary Glucose 151 H 138 H 144 H Calcium Magnesium 07/17/25 07/17/25 03:41 06:34 Sodium 139 Potassium 3.5 Chloride 102 Carbon Dioxide 32 H Anion Gap 5 BUN 36 H Creatinine 1.38 H Estim Creat Clear Calc 47 Estimated GFR 38 L Glucose 122 H POC Capillary Glucose 101 Calcium 8.9 Magnesium 2.2 Hospitalist MIPS Advance Care Plan I have confirmed that the patient's Advanced Care Plan is present, code status is documented, or surrogate decision maker is listed in patient medical record.: Yes Medication Reconciliation I have utilized all available resources to obtain, update and review the patients current medications (includes all prescriptions, OTC, herbals, cannabis, and nutritional supplements).: Yes
[2025-07-17] MEDS: FLUTICASONE/UMECLIDIN/VILANTER 100-62.5-25 MCG ELLIPTA 1 PUFF INHALATION (08:28)
[2025-07-17 08:53] LABS: Hematocrit 42.7 % (37.0-47.0); Hemoglobin 13.5 g/dL (12.0-15.0); Mean Corpuscular HGB Conc 31.6 g/dl (32-36); Mean Corpuscular Hemoglobin 31.3 pg (26-34); Mean Corpuscular Volume 98.8 fl (80-100); Platelet Count Result 158 k/mm3 (150-375); Red Blood Count 4.32 M/mm3 (4.2-5.4); White Blood Count 5.5 K/mm3 (4.5-10.0)
[2025-07-17 09:06] LABS: Alanine Aminotransferase 17 U/L (6-35); Albumin Level 3.5 g/dL (3.5-5.1); Alkaline Phosphatase 92 U/L (38-126); Anion Gap 6 mmol/L (4-12); Aspartate Amino Transferase 23 U/L (14-36); Bilirubin,Total 0.7 mg/dL (0.2-1.3); Blood Urea Nitrogen 34 mg/dL (7-17); Calcium 9.0 mg/dL (8.4-10.2); Carbon Dioxide 33 mmol/L (22-30); Chloride 101 mmol/L (98-107); Estimated CRCL calculation 48 ml/min; Estimated Glomerular Filt Rate 39; Glucose 171 mg/dL (65-110); Magnesium 2.1 mg/dL (1.6-2.3); Potassium 3.6 mmol/L (3.4-5.0); Sodium 140 mmol/L (137-145); Total Protein 6.4 g/dL (6.3-8.2)
--- NOTE | 2025-07-17 09:47 | PM.PNCARD ---
Progress Note: A&P Assessment and Plan (1) Atrial flutter with rapid ventricular response: Code(s): I48.92 - Unspecified atrial flutter Status: Acute Assessment and Plan: 74-year-old female with diastolic dysfunction, diabetes mellitus on insulin, neuropathy, morbid obesity with obesity hypoventilation, chronic respiratory failure on supplemental oxygen at home; pulmonary hypertension, CKD, CIRILO, generalized debility/bed-bound. Patient admitted to the hospital with palpitations associated with dyspnea. Modest improvement in heart rate with IV adenosine via EMS. Patient is in atrial flutter. TSH within normal limits. -Heart rate now in the 80's - on telemetry appears to perhaps be in sinus rhythm, but could be slow atrial flutter. Obtain EKG. -Continue apixaban 5 mg p.o. b.i.d. for CVA prophylaxis per dosing guidelines. In addition, apixaban will help patient with DVT prophylaxis as she is morbidly obese and bedbound. -Check echo -continue to monitor on telemetry. -Will consider DC cardioversion if patient has recurrent difficult to control atrial flutter with RVR. Her candidacy for atrial flutter ablation treatment can be determined as an outpatient. (2) Obesity hypoventilation syndrome: Code(s): E66.2 - Morbid (severe) obesity with alveolar hypoventilation Status: Acute Assessment and Plan: Supplemental oxygen. Management as per primary team and pulmonology. Subjective Date/time seen: 07/17/25 09:47 Interval history: Cardiology follow up visit for atrial flutter Date of service 07/16/2025: Feeling better today but does feel palpitations and is still short of breath. Heart rate remains elevated. Date of service 07/17/2025: Heart rate has improved with higher dose of diltiazem. Feels better today. No palpitations or chest pain Review of Systems Review of Systems: General: Positive for generalized fatigue Psychological: Negative for anxiety, depression Ophthalmic: negative for loss of vision ENT: Negative for epistaxis, headaches Allergy and immunology: Negative for hives, nasal congestion Hematologic and lymphatic: Negative for overt bleeding problems Endocrine: Negative for hot flashes, palpitations Respiratory: Positive for dyspnea Cardiovascular: Negative for chest pain, positive for palpitations, dyspnea Gastrointestinal: Negative for abdominal pain, nausea, vomiting, hematochezia Musculoskeletal: Unable to walk Neurological: Positive for generalized weakness, neuropathy Dermatological: Negative for rash, skin discoloration Exam Narrative: PHYSICAL EXAMINATION: GENERAL: Morbidly obese female, lying down in the bed, Alert, oriented, no acute distress MENTAL STATUS: affect appropriate to mood EYES: Extraocular movements intact, no pallor EARS: External ears appear normal, hearing grossly normal NOSE: Normal and patent, no discharge MOUTH: Mucous membranes moist, tongue normal NECK: Supple, JVD not appreciable CHEST: Diminished breath sounds due to body habitus HEART: Normal rate, regular rhythm ABDOMEN: Soft, nontender NEUROLOGICAL: Alert, oriented, normal speech MUSCULOSKELETAL: No major deformity, no amputation EXTREMITIES: Mild nonpitting pedal edema, no clubbing, no cyanosis SKIN: no rash on the exposed area, no cyanosis PSYCHIATRIC: Normal mood, appropriate affect Objective Data Vital Signs Vital Signs: Vital Signs - 24 hr 07/16/25 10:00 07/16/25 12:00 07/16/25 12:00 Temperature 37.2 C Pulse Rate 122 H 132 H Respiratory Rate 18 Blood Pressure 131/77 Pulse Oximetry 95 94 Oxygen Delivery Nasal Cannula Oxygen Flow Rate 2 07/16/25 12:00 07/16/25 14:00 07/16/25 16:00 Temperature Pulse Rate 130 H 113 H Respiratory Rate Blood Pressure Pulse Oximetry 93 Oxygen Delivery Nasal Cannula Oxygen Flow Rate 2 07/16/25 16:00 07/16/25 16:00 07/16/25 18:00 Temperature 36.9 C Pulse Rate 98 54 L 106 H Respiratory Rate 20 Blood Pressure 115/43 L Pulse Oximetry 94 Oxygen Delivery Oxygen Flow Rate 07/16/25 20:00 07/16/25 20:00 07/16/25 22:00 Temperature 36.4 C L Pulse Rate 111 H 106 H 89 Respiratory Rate 13 Blood Pressure 134/72 Pulse Oximetry 96 Oxygen Delivery Oxygen Flow Rate 07/17/25 00:00 07/17/25 00:00 07/17/25 02:00 Temperature 36.6 C Pulse Rate 103 H 86 86 Respiratory Rate 14 Blood Pressure 136/91 H Pulse Oximetry 95 Oxygen Delivery Oxygen Flow Rate 07/17/25 03:45 07/17/25 04:00 07/17/25 06:00 Temperature 36.4 C L Pulse Rate 87 91 85 Respiratory Rate 20 Blood Pressure 104/64 Pulse Oximetry 94 Oxygen Delivery Oxygen Flow Rate 07/17/25 07:31 07/17/25 08:00 07/17/25 08:00 Temperature 36.7 C Pulse Rate 103 H 110 H Respiratory Rate 20 Blood Pressure 130/55 L Pulse Oximetry 100 94 Oxygen Delivery Nasal Cannula Oxygen Flow Rate 2 07/17/25 08:28 Temperature Pulse Rate 102 H Respiratory Rate 18 Blood Pressure Pulse Oximetry Oxygen Delivery Oxygen Flow Rate Intake/Output Intake/Output: Intake & Output 07/14/25 07/15/25 07/16/25 07/17/25 23:59 23:59 23:59 23:59 Intake Total 17 605.0 1570 626 Output Total 3000 1490 550 Balance 17 -6645.0 80 76 Meds/Results Medications: Active Medications Generic Name Dose Route Start Last Admin Trade Name Freq PRN Reason Stop Dose Admin Acetaminophen 650 mg 07/14/25 19:31 Acetaminophen 325 Mg Tablet PO Q4H PRN Mild Pain (1-3) or Fever Albuterol/Ipratropium 3 ml 07/15/25 14:00 Ipratropium 0.5 Mg/Albuterol Sulfate 2.5 Mg (Base) Ampul.Neb 3 Ml INHALATION TIDRT PRN Shortness Of Breath Or Wheezin Allopurinol 100 mg 07/15/25 17:00 07/17/25 08:07 Allopurinol 100 Mg Tablet PO 100 mg BID ANAM Administration Apixaban 5 mg 07/15/25 21:00 07/17/25 08:08 Apixaban 5 Mg Tablet PO 5 mg Q12HR ANAM Administration Atorvastatin Calcium 80 mg 07/15/25 21:00 07/16/25 20:46 Atorvastatin 40 Mg Tablet PO 80 mg HS ANAM Administration Benzonatate 200 mg 07/15/25 14:11 Benzonatate 100 Mg Capsule PO Q8H PRN Cough Buspirone HCl 15 mg 07/15/25 17:00 07/17/25 08:07 Buspirone Hcl 5 Mg Tablet PO 15 mg TID ANAM Administration Dextrose 12.5 gm 07/14/25 21:40 Dextrose 50% 25 Gm/50 Ml Syringe IV PUSH PRN PRN Hypoglycemia Protocol Diltiazem HCl 60 mg 07/16/25 12:00 07/17/25 06:17 Diltiazem Hcl 60 Mg Tablet PO 60 mg Q6HR ANAM Administration Ergocalciferol 1,250 mcg 07/19/25 09:00 Ergocalciferol (Vitamin D2) 1,250 Mcg (50,000 Units) Capsule PO WEEKLY ANAM Ferrous Sulfate 325 mg 07/16/25 09:00 07/17/25 08:07 Ferrous Sulfate 325 Mg Tablet BY MOUTH 325 mg DAILY ANAM Administration Fluticasone Propionate 1 spray 07/16/25 09:00 07/17/25 08:06 Fluticasone Propionate 0.05% Na Spr 16 Gm Btl (*Bkc) NASAL 1 spray DAILY ANAM Administration Fluticasone/Umeclidinium/Vilanterol 1 puff 07/16/25 08:00 07/17/25 08:28 Fluticasone/Umeclidin/Vilanter 100-62.5-25 Mcg Ellipta INHALATION 1 puff DAILYRT ANAM Administration Furosemide 40 mg 07/16/25 09:00 07/17/25 08:08 Furosemide 40 Mg Tablet PO 40 mg DAILY ANAM Administration Gabapentin 300 mg 07/15/25 17:00 07/17/25 08:08 Gabapentin 300 Mg Capsule PO 300 mg TID ANAM Administration Glucose 15 gm 07/14/25 21:40 Glucose Oral Gel 15 Gm Of Glucse In 37.5 Gm Tube PO PRN PRN Hypoglycemia Protocol Hydrocortisone 1 applic 07/15/25 14:00 Hydrocortisone 1% 30 Gm Cream TOPICAL PRN PRN Itching Dextrose 1,000 mls @ 100 mls/hr 07/14/25 21:40 Dextrose 5% 1,000 Ml IVPB PRN PRN Hypoglycemia Protocol Insulin Aspart 2 - 5 units 07/15/25 08:00 07/17/25 08:05 Insulin Aspart (*Bkc) 100 Units/Ml SUB-Q Not Given TIDWM ANAM Protocol Insulin Aspart 1 - 2 units 07/15/25 21:00 07/16/25 20:28 Insulin Aspart (*Bkc) 100 Units/Ml SUB-Q Not Given HS ANAM Protocol Insulin Glargine 28 units 07/16/25 09:00 07/17/25 08:13 Insulin Glargine (*Bkc) 100 Units/Ml SUB-Q 28 units QAM ANAM Administration Insulin Glargine 42 units 07/15/25 21:00 07/16/25 20:45 Insulin Glargine (*Bkc) 100 Units/Ml SUB-Q 42 units HS ANAM Administration Loperamide HCl 2 mg 07/15/25 14:00 Loperamide Hcl 2 Mg Capsule PO Q6H PRN Loose Stool Loratadine 10 mg 07/16/25 09:00 07/17/25 08:08 Loratadine 10 Mg Tablet PO 10 mg DAILY ANAM Administration Mirabegron 25 mg 07/15/25 21:00 07/16/25 20:46 Mirabegron 25 Mg Er Tablet PO 25 mg HS ANAM Administration Multivitamins Therapeutic 1 tablet 07/16/25 09:00 07/17/25 08:08 Multivitamins Therapeutic Tab (*Bkc) PO 1 tablet DAILY ANAM Administration Naphazoline HCl/Pheniramine Maleate 1 drop 07/15/25 17:00 Naphazoline/Pheniramine Ophth Soln 5 Ml Bottle EACH EYE QID PRN EYE IRRITATION Nitroglycerin 0.4 mg 07/15/25 14:00 Nitroglycerin Sl 0.4 Mg Tablet SUBLINGUAL Q5M PRN Chest Pain Pantoprazole Sodium 40 mg 07/15/25 09:00 07/17/25 08:07 Pantoprazole 40 Mg Tablet PO 40 mg QAM ANAM Administration Ropinirole HCl 4 mg 07/15/25 21:00 07/16/25 20:46 Ropinirole Hcl 1 Mg Tablet PO 4 mg HS ANAM Administration Senna/Docusate Sodium 1 tab 07/15/25 17:00 07/17/25 08:07 Senna/Docusate Sodium Tablet PO 1 tab BID ANAM Administration Sertraline HCl 100 mg 07/16/25 09:00 07/17/25 08:07 Sertraline Hcl 50 Mg Tablet PO 100 mg DAILY ANAM Administration Trazodone HCl 50 mg 07/15/25 21:00 07/16/25 20:46 Trazodone Hcl 50 Mg Tablet PO 50 mg HS ANAM Administration Radiology Results: ITS Impressions Chest X-Ray 07/14/25 19:11 Impression: Mild CHF Labs Labs: Laboratory Results - last 24 hr 07/16/25 07/16/25 07/16/25 12:04 16:35 20:16 WBC RBC Hgb Hct MCV MCH MCHC RDW Plt Count MPV Sodium Potassium Chloride Carbon Dioxide Anion Gap BUN Creatinine Estim Creat Clear Calc Estimated GFR Glucose POC Capillary Glucose 151 H 138 H 144 H Calcium Magnesium Total Bilirubin AST ALT Alkaline Phosphatase Total Protein Albumin 07/17/25 07/17/25 07/17/25 03:41 06:34 08:45 WBC 5.5 RBC 4.32 Hgb 13.5 Hct 42.7 MCV 98.8 MCH 31.3 MCHC 31.6 L RDW 14.1 Plt Count 158 MPV 10.7 H Sodium 139 140 Potassium 3.5 3.6 Chloride 102 101 Carbon Dioxide 32 H 33 H Anion Gap 5 6 BUN 36 H 34 H Creatinine 1.38 H 1.33 H Estim Creat Clear Calc 47 48 Estimated GFR 38 L 39 L Glucose 122 H 171 H POC Capillary Glucose 101 Calcium 8.9 9.0 Magnesium 2.2 Cancelled Total Bilirubin AST ALT Alkaline Phosphatase Total Protein Albumin 07/17/25 08:45 WBC RBC Hgb Hct MCV MCH MCHC RDW Plt Count MPV Sodium Potassium Chloride Carbon Dioxide Anion Gap BUN Creatinine Estim Creat Clear Calc Estimated GFR Glucose POC Capillary Glucose Calcium Magnesium 2.1 Total Bilirubin 0.7 AST 23 ALT 17 Alkaline Phosphatase 92 Total Protein 6.4 Albumin 3.5
--- NOTE | 2025-07-17 10:02 | ECG_ITS ---
Test Date: 2025-07-17 10:49:17 Measurements Intervals [place] Rate: 87 P: 259 GA: 174 QRS: -47 QRSD: 141 T: 261 QT: 381 QTc: 459 Interpretive Statements ATRIAL FLUTTER INTRAVENTRICULAR CONDUCTION DELAY [130+ ms QRS DURATION] ABNORMAL ECG Electronically Signed On 07-17-2025 15:53:51 [facility] CO[facility] by Sha Grossman M.D.
[2025-07-17] MEDS: POTASSIUM CHLORIDE 20 MEQ ER TABLET 40 MEQ PO (11:18)
[2025-07-17] MEDS: PERFLUTREN LIPID MICROSPHERES 1.5 ML VIAL DILUTED TO 10 ML TOTAL VOLUME IV PUSH (15:47)
--- NOTE | 2025-07-17 15:47 | IVDEFINITY ---
Prior to administration of IV Definity the patient was educated on the risks and benefits of the imaging enhancing agent including potential adverse side effects. The patient verbalized understanding. Allergies were verified. No exclusion criteria were identified and at least one of the following inclusion criteria were met: 1) physician request, 2) patient technically difficult to image (per the [place] [employer]ocardi[employer] guidelines of two or more segments not discernable within the apical view), or 3) questionable left ventricular function. ?
[2025-07-17] MEDS: ATORVASTATIN 40 MG TABLET 80 MG PO (21:24)
[2025-07-17] MEDS: MIRABEGRON 25 MG ER TABLET PO (21:24)
[2025-07-17] MEDS: INSULIN GLARGINE (*BKC) 100 UNITS/ML 42 UNITS SUB-Q (21:26)
[2025-07-18] VITALS (15 sets, daily range): BP systolic 108–121; BP diastolic 55–88; PULSE 85–117; RESP 13–20; TEMP 36.3–36.8; O2SAT 90–98
[2025-07-18 04:38] LABS: Hematocrit 43.6 % (37.0-47.0); Hemoglobin 13.5 g/dL (12.0-15.0); Mean Corpuscular HGB Conc 31.0 g/dl (32-36); Mean Corpuscular Hemoglobin 30.9 pg (26-34); Mean Corpuscular Volume 99.8 fl (80-100); Platelet Count Result 144 k/mm3 (150-375); Red Blood Count 4.37 M/mm3 (4.2-5.4); White Blood Count 6.5 K/mm3 (4.5-10.0)
[2025-07-18 04:48] LABS: Alanine Aminotransferase 14 U/L (6-35); Albumin Level 3.5 g/dL (3.5-5.1); Alkaline Phosphatase 82 U/L (38-126); Anion Gap 5 mmol/L (4-12); Aspartate Amino Transferase 26 U/L (14-36); Bilirubin,Total 0.8 mg/dL (0.2-1.3); Blood Urea Nitrogen 35 mg/dL (7-17); Calcium 8.9 mg/dL (8.4-10.2); Carbon Dioxide 34 mmol/L (22-30); Chloride 101 mmol/L (98-107); Estimated CRCL calculation 45 ml/min; Estimated Glomerular Filt Rate 36; Glucose 108 mg/dL (65-110); Potassium 4.0 mmol/L (3.4-5.0); Sodium 140 mmol/L (137-145); Total Protein 6.4 g/dL (6.3-8.2)
--- NOTE | 2025-07-18 07:38 | P.PNIM_ITS ---
Progress Note: A&P Assessment and Plan (1) Atrial flutter with rapid ventricular response: Code(s): I48.92 - Unspecified atrial flutter Status: Acute Plan SVT, resolved Atrial fibrillation/flutter with RVR -unclear etiology, may be from sleep apnea. TSH WNL -SVT may have improved with adenosine, subsequently in atrial flutter/fibrillation with RVR -replace potassium and magnesium as needed -diltiazem 240 mg p.o. q.d. -cardiology following -anticoagulation Eliquis 5 mg b.i.d. -she may need outpatient atrial flutter ablation -continue monitoring telemetry: Heart rate going up to 130, irregular Chronic conditions -gout: Allopurinol -hyperlipidemia: Atorvastatin -anxiety/depression: BuSpar, sertraline -COPD: Continue home inhaler Breztri, p.r.n. benzonatate, as needed DuoNeb -supplements: Cholecalciferol weekly, ferrous sulfate -type 2 diabetes sliding scale insulin, Accu-Cheks ACS, hypoglycemia protocol, glargine 28 units daily and 42 units nightly -allergies: Codeine, Flonase -chronic diastolic heart failure: Normal EF, grade 1 diastolic function. Continue home Lasix with potassium supplement -insomnia: Trazodone -bowel regiment on Senokot -RLS: requip -Overactive bladder: mirabegron -GERD: Prilosec -obesity hypoventilation syndrome Diet: Diabetic diet with fluid restriction DVT prophylaxis: Eliquis Code status: Full code Disposition: home in 2-3 days, monitor in IMU Subjective Date/time seen: 07/18/25 07:38 Interval history: Patient is currently on apixaban 5 mg p.o. b.i.d.. Status post adenosine via EMS. Left ventricular systolic function 45-50%. Moderate pulmonary hypertension. Patient is currently on diltiazem 240 mg p.o. q.d. Review of Systems Review of Systems: 10 point ROS complete, negative other th an what is specified in HPI. All systems reviewed & are unremarkable except as noted in HPI and below (Subjective) Exam Narrative: - GENERAL: Pleasant morbidly obese woma n in No acute distress. - EYES: EOMI. Anicteric. - HENT: Moist mucous membranes. - LUNGS: Clear to auscultation bilateral ly, no wheezing - CARDIOVASCULAR: Irregularly irregular , tachycardic - ABDOMEN: Soft, non-tender and non-dist ended. - EXTREMITIES: No edema. Peripheral puls es 2+. - NEUROLOGIC: No focal neurological defi cits. CN II-XII grossly intact. - PSYCHIATRIC: Awake, Alert and oriented x 3. flat affect Const: General: comfortable and no acute distress Other: A&O x3, obese HENMT: Mouth: Yes moist mucous membranes Eyes: Pupils: Equal, round and reactive pupils present Neck: Neck: supple Resp: Effort & Inspection: normal respiratory effort Auscultation: crackles Cardio: Rate: regular rate Rhythm: regular rhythm Heart sounds: no murmurs GI: Inspection: non-distended : General: Yes bladder normal to palpation Bimanual exam- vagina & uterus: bladder normal to palpation Neuro: Cranial nerves: Yes Equal, round and reactive pupils present Other: Globally weak Extrem: Other: 1-2 +pitting edema bilateral lower extre mities with chronic skin thickening in the dependent portions Psych: Mental Status: mental status grossly normal Objective Data Vital Signs Vital Signs: Vital Signs - 24 hr 07/17/25 08:00 07/17/25 08:00 07/17/25 08:28 Temperature Pulse Rate 110 H 102 H Respiratory Rate 18 Blood Pressure Pulse Oximetry 94 Oxygen Delivery Nasal Cannula Oxygen Flow Rate 2 Fraction of Inspired Oxygen 07/17/25 10:00 07/17/25 11:31 07/17/25 12:00 Temperature 98.3 F Pulse Rate 87 88 Respiratory Rate 18 Blood Pressure 117/56 L Pulse Oximetry 93 93 Oxygen Delivery Nasal Cannula Oxygen Flow Rate 2 Fraction of Inspired Oxygen 07/17/25 12:00 07/17/25 14:00 07/17/25 15:53 Temperature 97.7 F Pulse Rate 90 87 88 Respiratory Rate 20 Blood Pressure 114/62 Pulse Oximetry 99 Oxygen Delivery Oxygen Flow Rate Fraction of Inspired Oxygen 07/17/25 16:00 07/17/25 16:00 07/17/25 18:00 Temperature Pulse Rate 87 103 H Respiratory Rate Blood Pressure Pulse Oximetry 96 Oxygen Delivery Nasal Cannula Oxygen Flow Rate 2 Fraction of Inspired Oxygen 07/17/25 19:34 07/17/25 20:00 07/17/25 20:00 Temperature 97.7 F Pulse Rate 90 99 Respiratory Rate 20 15 Blood Pressure 102/62 Pulse Oximetry 90 94 92 Oxygen Delivery Nasal Cannula Nasal Cannula Oxygen Flow Rate 2 2 Fraction of Inspired Oxygen 28 07/17/25 20:00 07/17/25 22:00 07/18/25 00:00 Temperature Pulse Rate 91 89 Respiratory Rate Blood Pressure Pulse Oximetry 90 Oxygen Delivery Nasal Cannula Oxygen Flow Rate 2 Fraction of Inspired Oxygen 07/18/25 00:00 07/18/25 00:00 07/18/25 02:00 Temperature 97.4 F L Pulse Rate 88 89 86 Respiratory Rate 13 Blood Pressure 108/60 Pulse Oximetry 93 Oxygen Delivery Oxygen Flow Rate Fraction of Inspired Oxygen 07/18/25 04:00 07/18/25 04:00 07/18/25 04:00 Temperature 97.5 F L Pulse Rate 88 86 Respiratory Rate 13 Blood Pressure 121/88 Pulse Oximetry 94 95 Oxygen Delivery Nasal Cannula Oxygen Flow Rate 2 Fraction of Inspired Oxygen 07/18/25 06:00 Temperature Pulse Rate 85 Respiratory Rate Blood Pressure Pulse Oximetry Oxygen Delivery Oxygen Flow Rate Fraction of Inspired Oxygen Intake/Output Intake/Output: Intake & Output 07/15/25 07/16/25 07/17/25 07/18/25 23:59 23:59 23:59 23:59 Intake Total 605.0 1570 1496 390 Output Total 3000 1490 1450 101 Balance -2395.0 80 46 289 Meds/Results Medications: Active Medications Generic Name Dose Route Start Last Admin Trade Name Freq PRN Reason Stop Dose Admin Acetaminophen 650 mg 07/14/25 19:31 Acetaminophen 325 Mg Tablet PO Q4H PRN Mild Pain (1-3) or Fever Albuterol/Ipratropium 3 ml 07/15/25 14:00 Ipratropium 0.5 Mg/Albuterol Sulfate 2.5 Mg (Base) Ampul.Neb 3 Ml INHALATION TIDRT PRN Shortness Of Breath Or Wheezin Allopurinol 100 mg 07/15/25 17:00 07/17/25 17:02 Allopurinol 100 Mg Tablet PO 100 mg BID ANAM Administration Apixaban 5 mg 07/15/25 21:00 07/17/25 21:24 Apixaban 5 Mg Tablet PO 5 mg Q12HR ANAM Administration Atorvastatin Calcium 80 mg 07/15/25 21:00 07/17/25 21:24 Atorvastatin 40 Mg Tablet PO 80 mg HS ANAM Administration Benzonatate 200 mg 07/15/25 14:11 Benzonatate 100 Mg Capsule PO Q8H PRN Cough Buspirone HCl 15 mg 07/15/25 17:00 07/17/25 17:02 Buspirone Hcl 5 Mg Tablet PO 15 mg TID ANAM Administration Dextrose 12.5 gm 07/14/25 21:40 Dextrose 50% 25 Gm/50 Ml Syringe IV PUSH PRN PRN Hypoglycemia Protocol Diltiazem HCl 60 mg 07/16/25 12:00 07/18/25 05:22 Diltiazem Hcl 60 Mg Tablet PO 60 mg Q6HR ANAM Administration Ergocalciferol 1,250 mcg 07/19/25 09:00 Ergocalciferol (Vitamin D2) 1,250 Mcg (50,000 Units) Capsule PO WEEKLY ANAM Ferrous Sulfate 325 mg 07/16/25 09:00 07/17/25 08:07 Ferrous Sulfate 325 Mg Tablet BY MOUTH 325 mg DAILY ANAM Administration Fluticasone Propionate 1 spray 07/16/25 09:00 07/17/25 08:06 Fluticasone Propionate 0.05% Na Spr 16 Gm Btl (*Bkc) NASAL 1 spray DAILY ANAM Administration Fluticasone/Umeclidinium/Vilanterol 1 puff 07/16/25 08:00 07/17/25 08:28 Fluticasone/Umeclidin/Vilanter 100-62.5-25 Mcg Ellipta INHALATION 1 puff DAILYRT ANAM Administration Furosemide 40 mg 07/16/25 09:00 07/17/25 08:08 Furosemide 40 Mg Tablet PO 40 mg DAILY ANAM Administration Gabapentin 300 mg 07/15/25 17:00 07/17/25 17:02 Gabapentin 300 Mg Capsule PO 300 mg TID ANAM Administration Glucose 15 gm 07/14/25 21:40 Glucose Oral Gel 15 Gm Of Glucse In 37.5 Gm Tube PO PRN PRN Hypoglycemia Protocol Hydrocortisone 1 applic 07/15/25 14:00 Hydrocortisone 1% 30 Gm Cream TOPICAL PRN PRN Itching Dextrose 1,000 mls @ 100 mls/hr 07/14/25 21:40 Dextrose 5% 1,000 Ml IVPB PRN PRN Hypoglycemia Protocol Insulin Aspart 2 - 5 units 07/15/25 08:00 07/17/25 16:15 Insulin Aspart (*Bkc) 100 Units/Ml SUB-Q Not Given TIDWM ANAM Protocol Insulin Aspart 1 - 2 units 07/15/25 21:00 07/17/25 21:21 Insulin Aspart (*Bkc) 100 Units/Ml SUB-Q Not Given HS [facility] Protocol Insulin Glargine 28 units 07/16/25 09:00 07/17/25 08:13 Insulin Glargine (*Bkc) 100 Units/Ml SUB-Q 28 units QAM ANAM Administration Insulin Glargine 42 units 07/15/25 21:00 07/17/25 21:26 Insulin Glargine (*Bkc) 100 Units/Ml SUB-Q 42 units HS ANAM Administration Loperamide HCl 2 mg 07/15/25 14:00 Loperamide Hcl 2 Mg Capsule PO Q6H PRN Loose Stool Loratadine 10 mg 07/16/25 09:00 07/17/25 08:08 Loratadine 10 Mg Tablet PO 10 mg DAILY ANAM Administration Mirabegron 25 mg 07/15/25 21:00 07/17/25 21:24 Mirabegron 25 Mg Er Tablet PO 25 mg HS ANAM Administration Multivitamins Therapeutic 1 tablet 07/16/25 09:00 07/17/25 08:08 Multivitamins Therapeutic Tab (*Bkc) PO 1 tablet DAILY ANAM Administration Naphazoline HCl/Pheniramine Maleate 1 drop 07/15/25 17:00 Naphazoline/Pheniramine Ophth Soln 5 Ml Bottle EACH EYE QID PRN EYE IRRITATION Nitroglycerin 0.4 mg 07/15/25 14:00 Nitroglycerin Sl 0.4 Mg Tablet SUBLINGUAL Q5M PRN Chest Pain Pantoprazole Sodium 40 mg 07/15/25 09:00 07/17/25 08:07 Pantoprazole 40 Mg Tablet PO 40 mg QAM ANAM Administration Ropinirole HCl 4 mg 07/15/25 21:00 07/17/25 21:25 Ropinirole Hcl 1 Mg Tablet PO 4 mg HS ANAM Administration Senna/Docusate Sodium 1 tab 07/15/25 17:00 07/17/25 17:02 Senna/Docusate Sodium Tablet PO 1 tab BID ANAM Administration Sertraline HCl 100 mg 07/16/25 09:00 07/17/25 08:07 Sertraline Hcl 50 Mg Tablet PO 100 mg DAILY ANAM Administration Trazodone HCl 50 mg 07/15/25 21:00 07/17/25 21:24 Trazodone Hcl 50 Mg Tablet PO 50 mg HS ANAM Administration Radiology Results: ITS Impressions Chest X-Ray 07/14/25 19:11 Impression: Mild CHF Labs Labs: Laboratory Results - last 24 hr 07/17/25 07/17/25 07/17/25 03:41 08:45 08:45 WBC 5.5 RBC 4.32 Hgb 13.5 Hct 42.7 MCV 98.8 MCH 31.3 MCHC 31.6 L RDW 14.1 Plt Count 158 MPV 10.7 H Sodium 140 Potassium 3.6 Chloride 101 Carbon Dioxide 33 H Anion Gap 6 BUN 34 H Creatinine 1.33 H Estim Creat Clear Calc 48 Estimated GFR 39 L Glucose 171 H POC Capillary Glucose Calcium 9.0 Magnesium Cancelled 2.1 Total Bilirubin 0.7 AST 23 ALT 17 Alkaline Phosphatase 92 Total Protein 6.4 Albumin 3.5 07/17/25 07/17/25 07/17/25 11:05 16:10 20:48 WBC RBC Hgb Hct MCV MCH MCHC RDW Plt Count MPV Sodium Potassium Chloride Carbon Dioxide Anion Gap BUN Creatinine Estim Creat Clear Calc Estimated GFR Glucose POC Capillary Glucose 173 H 164 H 165 H Calcium Magnesium Total Bilirubin AST ALT Alkaline Phosphatase Total Protein Albumin 07/18/25 03:51 WBC 6.5 RBC 4.37 Hgb 13.5 Hct 43.6 MCV 99.8 MCH 30.9 MCHC 31.0 L RDW 13.9 Plt Count 144 L MPV 10.2 Sodium 140 Potassium 4.0 Chloride 101 Carbon Dioxide 34 H Anion Gap 5 BUN 35 H Creatinine 1.42 H Estim Creat Clear Calc 45 Estimated GFR 36 L Glucose 108 POC Capillary Glucose Calcium 8.9 Magnesium Total Bilirubin 0.8 AST 26 ALT 14 Alkaline Phosphatase 82 Total Protein 6.4 Albumin 3.5 Hospitalist MIPS Advance Care Plan I have confirmed that the patient's Advanced Care Plan is present, code status is documented, or surrogate decision maker is listed in patient medical record.: Yes Medication Reconciliation I have utilized all available resources to obtain, update and review the patients current medications (includes all prescriptions, OTC, herbals, cannabis, and nutritional supplements).: Yes
[2025-07-18] MEDS: FLUTICASONE/UMECLIDIN/VILANTER 100-62.5-25 MCG ELLIPTA 1 PUFF INHALATION (07:47)
[2025-07-18] MEDS: LORATADINE 10 MG TABLET PO (08:10)
[2025-07-18] MEDS: APIXABAN 5 MG TABLET PO ×2 (08:10→20:32)
[2025-07-18] MEDS: PANTOPRAZOLE 40 MG TABLET PO (08:10)
[2025-07-18] MEDS: GABAPENTIN 300 MG CAPSULE PO ×3 (08:10→16:26)
[2025-07-18] MEDS: FERROUS SULFATE 325 MG TABLET BY MOUTH (08:10)
[2025-07-18] MEDS: SERTRALINE HCL 50 MG TABLET 100 MG PO (08:10)
[2025-07-18] MEDS: INSULIN GLARGINE (*BKC) 100 UNITS/ML 28 UNITS SUB-Q (08:11)
[2025-07-18] MEDS: FUROSEMIDE 40 MG TABLET PO (08:11)
[2025-07-18] MEDS: FLUTICASONE PROPIONATE 0.05% NA SPR 16 GM BTL (*BKC) 1 SPRAY NASAL (08:11)
[2025-07-18] MEDS: SENNA/DOCUSATE SODIUM TABLET 1 TAB PO ×2 (08:11→16:26)
[2025-07-18] MEDS: MULTIVITAMINS THERAPEUTIC TAB (*BKC) 1 TABLET PO (08:11)
--- NOTE | 2025-07-18 10:08 | P.PNCA_ITS ---
Progress Note: A&P Assessment and Plan (1) Atrial flutter: Code(s): I48.92 - Unspecified atrial flutter Status: Acute Plan 74-year-old lady with: Atrial flutter new diagnosis but uncertain chronicity/onset of her arrhythmia. Heart rate is well controlled with diltiazem. Going to shift her to long-acting diltiazem today. Anticoagulation has been increased to appropriate dosage of apixaban 5 mg q.12 hours. If her heart rate remains well controlled discharge tomorrow would be appropriate in my opinion. We will arrange follow-up in the office to discuss long-term rate control versus rhythm control strategy. The patient is expressing hesitation about undergoing a cardioversion. Reassured her that rate control is a reasonable strategy for this as well as at since she is a unfortunate bed ridden individual she is unlikely to derive a lot of symptomatic benefit from protestant of sinus rhythm Phillip Esteves MD [facility] Subjective Date/time seen: Date of service: 07/18/25 10:08 Interval history: Cardiology follow up visit for atrial flutter Date of service 07/16/2025: Feeling better today but does feel palpitations and is still short of breath. Heart rate remains elevated. Date of service 07/17/2025: Heart rate has improved with higher dose of diltiazem. Feels better today. No palpitations or chest pain Date of service 07/18/2025: She is asymptomatic today still in atrial flutter heart rate is 87 at rest. Discussed with the patient half-way management of her atrial flutter. Exam Narrative: PHYSICAL EXAMINATION: GENERAL: Morbidly obese female, lying down in the bed, Alert, oriented, no acute distress MENTAL STATUS: affect appropriate to mood EYES: Extraocular movements intact, no pallor EARS: External ears appear normal, hearing grossly normal NOSE: Normal and patent, no discharge MOUTH: Mucous membranes moist, tongue normal NECK: Supple, JVD not appreciable CHEST: Diminished breath sounds due to body habitus HEART: Normal rate, regular rhythm ABDOMEN: Soft, nontender NEUROLOGICAL: Alert, oriented, normal speech MUSCULOSKELETAL: No major deformity, no amputation EXTREMITIES: Mild nonpitting pedal edema, no clubbing, no cyanosis SKIN: no rash on the exposed area, no cyanosis PSYCHIATRIC: Normal mood, appropriate affect Const: General: comfortable Other: Very pleasant morbidly obese lady Eyes: Sclera: sclerae normal Neck: Neck: supple and no JVD Resp: Effort & Inspection: normal respiratory effort Auscultation: clear to auscultation bilaterally Other: Breath sounds are distant but grossly clear Cardio: Rate: regular rate Rhythm: regular rhythm GI: GI Palp: Yes Soft to palpation Auscultation: normal bowel sounds Skin: General skin exam: normal color Neuro: Other: Alert and oriented x3 Objective Data Vital Signs Vital Signs: Vital Signs - 24 hr 07/17/25 11:31 07/17/25 12:00 07/17/25 12:00 Temperature 36.8 C Pulse Rate 88 90 Respiratory Rate 18 Blood Pressure 117/56 L Pulse Oximetry 93 93 Oxygen Delivery Nasal Cannula Oxygen Flow Rate 2 Fraction of Inspired Oxygen 07/17/25 14:00 07/17/25 15:53 07/17/25 16:00 Temperature 36.5 C Pulse Rate 87 88 Respiratory Rate 20 Blood Pressure 114/62 Pulse Oximetry 99 96 Oxygen Delivery Nasal Cannula Oxygen Flow Rate 2 Fraction of Inspired Oxygen 07/17/25 16:00 07/17/25 18:00 07/17/25 19:34 Temperature Pulse Rate 87 103 H 90 Respiratory Rate 20 Blood Pressure Pulse Oximetry 90 Oxygen Delivery Nasal Cannula Oxygen Flow Rate 2 Fraction of Inspired Oxygen 28 07/17/25 20:00 07/17/25 20:00 07/17/25 20:00 Temperature 36.5 C Pulse Rate 99 91 Respiratory Rate 15 Blood Pressure 102/62 Pulse Oximetry 94 92 Oxygen Delivery Nasal Cannula Oxygen Flow Rate 2 Fraction of Inspired Oxygen 07/17/25 22:00 07/18/25 00:00 07/18/25 00:00 Temperature 36.3 C L Pulse Rate 89 88 Respiratory Rate 13 Blood Pressure 108/60 Pulse Oximetry 90 93 Oxygen Delivery Nasal Cannula Oxygen Flow Rate 2 Fraction of Inspired Oxygen 07/18/25 00:00 07/18/25 02:00 07/18/25 04:00 Temperature Pulse Rate 89 86 Respiratory Rate Blood Pressure Pulse Oximetry 94 Oxygen Delivery Nasal Cannula Oxygen Flow Rate 2 Fraction of Inspired Oxygen 07/18/25 04:00 07/18/25 04:00 07/18/25 06:00 Temperature 36.4 C L Pulse Rate 88 86 85 Respiratory Rate 13 Blood Pressure 121/88 Pulse Oximetry 95 Oxygen Delivery Oxygen Flow Rate Fraction of Inspired Oxygen 07/18/25 07:48 07/18/25 07:55 07/18/25 08:06 Temperature 36.7 C Pulse Rate 101 H Respiratory Rate 20 Blood Pressure 109/62 Pulse Oximetry 97 97 97 Oxygen Delivery Nasal Cannula Nasal Cannula Oxygen Flow Rate 3 2 Fraction of Inspired Oxygen Intake/Output Intake/Output: Intake & Output 07/15/25 07/16/25 07/17/25 07/18/25 23:59 23:59 23:59 23:59 Intake Total 605.0 1570 1496 390 Output Total 3000 1490 1450 101 Balance -2395.0 80 46 289 Meds/Results Medications: Active Medications Generic Name Dose Route Start Last Admin Trade Name Freq PRN Reason Stop Dose Admin Acetaminophen 650 mg 07/14/25 19:31 Acetaminophen 325 Mg Tablet PO Q4H PRN Mild Pain (1-3) or Fever Albuterol/Ipratropium 3 ml 07/15/25 14:00 Ipratropium 0.5 Mg/Albuterol Sulfate 2.5 Mg (Base) Ampul.Neb 3 Ml INHALATION TIDRT PRN Shortness Of Breath Or Wheezin Allopurinol 100 mg 07/15/25 17:00 07/18/25 08:11 Allopurinol 100 Mg Tablet PO 100 mg BID ANAM Administration Apixaban 5 mg 07/15/25 21:00 07/18/25 08:10 Apixaban 5 Mg Tablet PO 5 mg Q12HR ANAM Administration Atorvastatin Calcium 80 mg 07/15/25 21:00 07/17/25 21:24 Atorvastatin 40 Mg Tablet PO 80 mg HS ANAM Administration Benzonatate 200 mg 07/15/25 14:11 Benzonatate 100 Mg Capsule PO Q8H PRN Cough Buspirone HCl 15 mg 07/15/25 17:00 07/18/25 08:11 Buspirone Hcl 5 Mg Tablet PO 15 mg TID ANAM Administration Dextrose 12.5 gm 07/14/25 21:40 Dextrose 50% 25 Gm/50 Ml Syringe IV PUSH PRN PRN Hypoglycemia Protocol Diltiazem HCl 240 mg 07/18/25 09:55 Diltiazem Hcl Cd 240 Mg Cap.24hr PO QAM ANAM Ergocalciferol 1,250 mcg 07/19/25 09:00 Ergocalciferol (Vitamin D2) 1,250 Mcg (50,000 Units) Capsule PO WEEKLY ANAM Ferrous Sulfate 325 mg 07/16/25 09:00 07/18/25 08:10 Ferrous Sulfate 325 Mg Tablet BY MOUTH 325 mg DAILY ANAM Administration Fluticasone Propionate 1 spray 07/16/25 09:00 07/18/25 08:11 Fluticasone Propionate 0.05% Na Spr 16 Gm Btl (*Bkc) NASAL 1 spray DAILY ANAM Administration Fluticasone/Umeclidinium/Vilanterol 1 puff 07/16/25 08:00 07/18/25 07:47 Fluticasone/Umeclidin/Vilanter 100-62.5-25 Mcg Ellipta INHALATION 1 puff DAILYRT ANAM Administration Furosemide 40 mg 07/16/25 09:00 07/18/25 08:11 Furosemide 40 Mg Tablet PO 40 mg DAILY ANAM Administration Gabapentin 300 mg 07/15/25 17:00 07/18/25 08:10 Gabapentin 300 Mg Capsule PO 300 mg TID ANAM Administration Glucose 15 gm 07/14/25 21:40 Glucose Oral Gel 15 Gm Of Glucse In 37.5 Gm Tube PO PRN PRN Hypoglycemia Protocol Hydrocortisone 1 applic 07/15/25 14:00 Hydrocortisone 1% 30 Gm Cream TOPICAL PRN PRN Itching Dextrose 1,000 mls @ 100 mls/hr 07/14/25 21:40 Dextrose 5% 1,000 Ml IVPB PRN PRN Hypoglycemia Protocol Insulin Aspart 2 - 5 units 07/15/25 08:00 07/18/25 08:19 Insulin Aspart (*Bkc) 100 Units/Ml SUB-Q Not Given TIDWM [facility] Protocol Insulin Aspart 1 - 2 units 07/15/25 21:00 07/17/25 21:21 Insulin Aspart (*Bkc) 100 Units/Ml SUB-Q Not Given HS [facility] Protocol Insulin Glargine 28 units 07/16/25 09:00 07/18/25 08:11 Insulin Glargine (*Bkc) 100 Units/Ml SUB-Q 28 units QAM ANAM Administration Insulin Glargine 42 units 07/15/25 21:00 07/17/25 21:26 Insulin Glargine (*Bkc) 100 Units/Ml SUB-Q 42 units HS ANAM Administration Loperamide HCl 2 mg 07/15/25 14:00 Loperamide Hcl 2 Mg Capsule PO Q6H PRN Loose Stool Loratadine 10 mg 07/16/25 09:00 07/18/25 08:10 Loratadine 10 Mg Tablet PO 10 mg DAILY ANAM Administration Mirabegron 25 mg 07/15/25 21:00 07/17/25 21:24 Mirabegron 25 Mg Er Tablet PO 25 mg HS ANAM Administration Multivitamins Therapeutic 1 tablet 07/16/25 09:00 07/18/25 08:11 Multivitamins Therapeutic Tab (*Bkc) PO 1 tablet DAILY ANAM Administration Naphazoline HCl/Pheniramine Maleate 1 drop 07/15/25 17:00 Naphazoline/Pheniramine Ophth Soln 5 Ml Bottle EACH EYE QID PRN EYE IRRITATION Nitroglycerin 0.4 mg 07/15/25 14:00 Nitroglycerin Sl 0.4 Mg Tablet SUBLINGUAL Q5M PRN Chest Pain Pantoprazole Sodium 40 mg 07/15/25 09:00 07/18/25 08:10 Pantoprazole 40 Mg Tablet PO 40 mg QAM ANAM Administration Ropinirole HCl 4 mg 07/15/25 21:00 07/17/25 21:25 Ropinirole Hcl 1 Mg Tablet PO 4 mg HS ANAM Administration Senna/Docusate Sodium 1 tab 07/15/25 17:00 07/18/25 08:11 Senna/Docusate Sodium Tablet PO 1 tab BID ANAM Administration Sertraline HCl 100 mg 07/16/25 09:00 07/18/25 08:10 Sertraline Hcl 50 Mg Tablet PO 100 mg DAILY ANAM Administration Trazodone HCl 50 mg 07/15/25 21:00 07/17/25 21:24 Trazodone Hcl 50 Mg Tablet PO 50 mg HS ANAM Administration Radiology Results: ITS Impressions Chest X-Ray 07/14/25 19:11 Impression: Mild CHF Labs Labs: Laboratory Results - last 24 hr 07/17/25 07/17/25 07/17/25 11:05 16:10 20:48 WBC RBC Hgb Hct MCV MCH MCHC RDW Plt Count MPV Sodium Potassium Chloride Carbon Dioxide Anion Gap BUN Creatinine Estim Creat Clear Calc Estimated GFR Glucose POC Capillary Glucose 173 H 164 H 165 H Calcium Total Bilirubin AST ALT Alkaline Phosphatase Total Protein Albumin 07/18/25 07/18/25 03:51 07:42 WBC 6.5 RBC 4.37 Hgb 13.5 Hct 43.6 MCV 99.8 MCH 30.9 MCHC 31.0 L RDW 13.9 Plt Count 144 L MPV 10.2 Sodium 140 Potassium 4.0 Chloride 101 Carbon Dioxide 34 H Anion Gap 5 BUN 35 H Creatinine 1.42 H Estim Creat Clear Calc 45 Estimated GFR 36 L Glucose 108 POC Capillary Glucose 128 H Calcium 8.9 Total Bilirubin 0.8 AST 26 ALT 14 Alkaline Phosphatase 82 Total Protein 6.4 Albumin 3.5
[2025-07-18] MEDS: dilTIAZem HCL CD 240 MG CAP.24HR PO (12:02)
--- NOTE | 2025-07-18 18:52 | PC.NURSE ---
Pt transferred to room 345 at 1850. Report given to PATTI Weston.
[2025-07-18] MEDS: ATORVASTATIN 40 MG TABLET 80 MG PO (20:32)
[2025-07-18] MEDS: MIRABEGRON 25 MG ER TABLET PO (20:32)
[2025-07-18] MEDS: INSULIN GLARGINE (*BKC) 100 UNITS/ML 42 UNITS SUB-Q (21:00)
[2025-07-19] VITALS (9 sets, daily range): BP systolic 103–108; BP diastolic 68; PULSE 88–120; RESP 16–20; TEMP 36.5–36.9; O2SAT 92–98
[2025-07-19] MEDS: BENZONATATE 100 MG CAPSULE 200 MG PO ×2 (04:32→20:44)
[2025-07-19] MEDS: FLUTICASONE/UMECLIDIN/VILANTER 100-62.5-25 MCG ELLIPTA 1 PUFF INHALATION (07:55)
[2025-07-19] MEDS: APIXABAN 5 MG TABLET PO ×2 (08:58→20:44)
[2025-07-19] MEDS: SERTRALINE HCL 50 MG TABLET 100 MG PO (08:58)
[2025-07-19] MEDS: GABAPENTIN 300 MG CAPSULE PO ×3 (08:58→16:49)
[2025-07-19] MEDS: ERGOCALCIFEROL (VITAMIN D2) 1,250 MCG (50,000 UNITS) CAPSULE 1250 MCG PO (08:59)
[2025-07-19] MEDS: FERROUS SULFATE 325 MG TABLET BY MOUTH (08:59)
[2025-07-19] MEDS: FUROSEMIDE 40 MG TABLET PO (08:59)
[2025-07-19] MEDS: LORATADINE 10 MG TABLET PO (08:59)
[2025-07-19] MEDS: MULTIVITAMINS THERAPEUTIC TAB (*BKC) 1 TABLET PO (08:59)
[2025-07-19] MEDS: dilTIAZem HCL CD 240 MG CAP.24HR PO (08:59)
[2025-07-19] MEDS: PANTOPRAZOLE 40 MG TABLET PO (08:59)
[2025-07-19] MEDS: SENNA/DOCUSATE SODIUM TABLET 1 TAB PO ×2 (08:59→16:49)
[2025-07-19] MEDS: FLUTICASONE PROPIONATE 0.05% NA SPR 16 GM BTL (*BKC) 1 SPRAY NASAL (09:00)
[2025-07-19] MEDS: INSULIN GLARGINE (*BKC) 100 UNITS/ML 28 UNITS SUB-Q (09:08)
--- NOTE | 2025-07-19 11:52 | P.PNIM_ITS ---
Progress Note: A&P Assessment and Plan (1) Atrial flutter with rapid ventricular response: Code(s): I48.92 - Unspecified atrial flutter Status: Acute Plan SVT, resolved Atrial fibrillation/flutter with RVR -unclear etiology, may be from sleep apnea. TSH WNL -SVT may have improved with adenosine, subsequently in atrial flutter/fibrillation with RVR -replace potassium and magnesium as needed -diltiazem 240 mg p.o. q.d. -cardiology following -anticoagulation Eliquis 5 mg b.i.d. -she may need outpatient atrial flutter ablation -continue monitoring telemetry: Heart rate going up to 130, irregular Chronic conditions -gout: Allopurinol -hyperlipidemia: Atorvastatin -anxiety/depression: BuSpar, sertraline -COPD: Continue home inhaler Breztri, p.r.n. benzonatate, as needed DuoNeb -supplements: Cholecalciferol weekly, ferrous sulfate -type 2 diabetes sliding scale insulin, Accu-Cheks ACS, hypoglycemia protocol, glargine 28 units daily and 42 units nightly -allergies: Codeine, Flonase -chronic diastolic heart failure: Normal EF, grade 1 diastolic function. Continue home Lasix with potassium supplement -insomnia: Trazodone -bowel regiment on Senokot -RLS: requip -Overactive bladder: mirabegron -GERD: Prilosec -obesity hypoventilation syndrome Diet: Diabetic diet with fluid restriction DVT prophylaxis: Eliquis Code status: Full code Disposition: home in 2-3 days, monitor in IMU Subjective Date/time seen: 07/19/25 11:52 Interval history: 07/18:Patient is currently on apixaban 5 mg p.o. b.i.d.. Status post adenosine via EMS. Left ventricular systolic function 45-50%. Moderate pulmonary hypertension. Patient is currently on diltiazem 240 mg p.o. q.d. 07/19: Patient is currently on diltiazem 240 mg p.o. q.d. and still has episodes of atrial flutter. Ordered EKG Review of Systems Review of Systems: 10 point ROS complete, negative other th an what is specified in HPI. All systems reviewed & are unremarkable except as noted in HPI and below (Subjective) Exam Narrative: - GENERAL: Pleasant morbidly obese woma n in No acute distress. - EYES: EOMI. Anicteric. - HENT: Moist mucous membranes. - LUNGS: Clear to auscultation bilateral ly, no wheezing - CARDIOVASCULAR: Irregularly irregular , tachycardic - ABDOMEN: Soft, non-tender and non-dist ended. - EXTREMITIES: No edema. Peripheral puls es 2+. - NEUROLOGIC: No focal neurological defi cits. CN II-XII grossly intact. - PSYCHIATRIC: Awake, Alert and oriented x 3. flat affect Const: General: comfortable and no acute distress Other: A&O x3, obese HENMT: Mouth: Yes moist mucous membranes Eyes: Pupils: Equal, round and reactive pupils present Neck: Neck: supple Resp: Effort & Inspection: normal respiratory effort Auscultation: crackles Cardio: Rate: regular rate Rhythm: regular rhythm Heart sounds: no murmurs GI: Inspection: non-distended : General: Yes bladder normal to palpation Bimanual exam- vagina & uterus: bladder normal to palpation Neuro: Cranial nerves: Yes Equal, round and reactive pupils present Other: Globally weak Extrem: Other: 1-2 +pitting edema bilateral lower extre mities with chronic skin thickening in the dependent portions Psych: Mental Status: mental status grossly normal Objective Data Vital Signs Vital Signs: Vital Signs - 24 hr 07/18/25 12:00 07/18/25 12:00 07/18/25 12:00 Temperature 98.3 F Pulse Rate 85 117 H Respiratory Rate 19 Blood Pressure 119/70 Pulse Oximetry 98 96 Oxygen Delivery Nasal Cannula Oxygen Flow Rate 2 07/18/25 15:52 07/18/25 16:00 07/18/25 20:32 Temperature 98.3 F Pulse Rate 98 103 H 103 H Respiratory Rate 20 Blood Pressure 121/55 L Pulse Oximetry 97 Oxygen Delivery Oxygen Flow Rate 07/18/25 21:28 07/18/25 22:00 07/19/25 00:00 Temperature 98.2 F Pulse Rate 85 108 H Respiratory Rate 20 Blood Pressure 116/62 Pulse Oximetry 97 98 Oxygen Delivery Nasal Cannula Oxygen Flow Rate 2 07/19/25 04:00 07/19/25 05:25 07/19/25 07:55 Temperature 97.7 F Pulse Rate 115 H 101 H Respiratory Rate 20 Blood Pressure 108/68 Pulse Oximetry 98 92 Oxygen Delivery Nasal Cannula Oxygen Flow Rate 2 07/19/25 07:55 Temperature Pulse Rate 88 Respiratory Rate 18 Blood Pressure Pulse Oximetry Oxygen Delivery Oxygen Flow Rate Intake/Output Intake/Output: Intake & Output 07/16/25 07/17/25 07/18/25 07/19/25 23:59 23:59 23:59 23:59 Intake Total 1570 1496 1500 490 Output Total 1490 1450 1501 400 Balance 80 46 -1 90 Meds/Results Medications: Active Medications Generic Name Dose Route Start Last Admin Trade Name Freq PRN Reason Stop Dose Admin Acetaminophen 650 mg 07/14/25 19:31 Acetaminophen 325 Mg Tablet PO Q4H PRN Mild Pain (1-3) or Fever Albuterol/Ipratropium 3 ml 07/15/25 14:00 Ipratropium 0.5 Mg/Albuterol Sulfate 2.5 Mg (Base) Ampul.Neb 3 Ml INHALATION TIDRT PRN Shortness Of Breath Or Wheezin Allopurinol 100 mg 07/15/25 17:00 07/19/25 08:59 Allopurinol 100 Mg Tablet PO 100 mg BID ANAM Administration Apixaban 5 mg 07/15/25 21:00 07/19/25 08:58 Apixaban 5 Mg Tablet PO 5 mg Q12HR ANAM Administration Atorvastatin Calcium 80 mg 07/15/25 21:00 07/18/25 20:32 Atorvastatin 40 Mg Tablet PO 80 mg HS ANAM Administration Benzonatate 200 mg 07/15/25 14:11 07/19/25 04:32 Benzonatate 100 Mg Capsule PO 200 mg Q8H PRN Administration Cough Buspirone HCl 15 mg 07/15/25 17:00 07/19/25 08:58 Buspirone Hcl 5 Mg Tablet PO 15 mg TID ANAM Administration Dextrose 12.5 gm 07/14/25 21:40 Dextrose 50% 25 Gm/50 Ml Syringe IV PUSH PRN PRN Hypoglycemia Protocol Diltiazem HCl 240 mg 07/18/25 12:00 07/19/25 08:59 Diltiazem Hcl Cd 240 Mg Cap.24hr PO 240 mg QAM ANAM Administration Ergocalciferol 1,250 mcg 07/19/25 09:00 07/19/25 08:59 Ergocalciferol (Vitamin D2) 1,250 Mcg (50,000 Units) Capsule PO 1,250 mcg WEEKLY ANAM Administration Ferrous Sulfate 325 mg 07/16/25 09:00 07/19/25 08:59 Ferrous Sulfate 325 Mg Tablet BY MOUTH 325 mg DAILY ANAM Administration Fluticasone Propionate 1 spray 07/16/25 09:00 07/19/25 09:00 Fluticasone Propionate 0.05% Na Spr 16 Gm Btl (*Bkc) NASAL 1 spray DAILY ANAM Administration Fluticasone/Umeclidinium/Vilanterol 1 puff 07/16/25 08:00 07/19/25 07:55 Fluticasone/Umeclidin/Vilanter 100-62.5-25 Mcg Ellipta INHALATION 1 puff DAILYRT ANAM Administration Furosemide 40 mg 07/16/25 09:00 07/19/25 08:59 Furosemide 40 Mg Tablet PO 40 mg DAILY ANAM Administration Gabapentin 300 mg 07/15/25 17:00 07/19/25 08:58 Gabapentin 300 Mg Capsule PO 300 mg TID ANAM Administration Glucose 15 gm 07/14/25 21:40 Glucose Oral Gel 15 Gm Of Glucse In 37.5 Gm Tube PO PRN PRN Hypoglycemia Protocol Hydrocortisone 1 applic 07/15/25 14:00 Hydrocortisone 1% 30 Gm Cream TOPICAL PRN PRN Itching Dextrose 1,000 mls @ 100 mls/hr 07/14/25 21:40 Dextrose 5% 1,000 Ml IVPB PRN PRN Hypoglycemia Protocol Insulin Aspart 2 - 5 units 07/15/25 08:00 07/19/25 09:00 Insulin Aspart (*Bkc) 100 Units/Ml SUB-Q Not Given TIDWM [facility] Protocol Insulin Aspart 1 - 2 units 07/15/25 21:00 07/18/25 21:01 Insulin Aspart (*Bkc) 100 Units/Ml SUB-Q Not Given HS [facility] Protocol Insulin Glargine 28 units 07/16/25 09:00 07/19/25 09:08 Insulin Glargine (*Bkc) 100 Units/Ml SUB-Q 28 units QAM [facility] Administration Insulin Glargine 36 units 07/19/25 21:00 Insulin Glargine (*Bkc) 100 Units/Ml SUB-Q HS [facility] Loperamide HCl 2 mg 07/15/25 14:00 Loperamide Hcl 2 Mg Capsule PO Q6H PRN Loose Stool Loratadine 10 mg 07/16/25 09:00 07/19/25 08:59 Loratadine 10 Mg Tablet PO 10 mg DAILY ANAM Administration Mirabegron 25 mg 07/15/25 21:00 07/18/25 20:32 Mirabegron 25 Mg Er Tablet PO 25 mg HS ANAM Administration Multivitamins Therapeutic 1 tablet 07/16/25 09:00 07/19/25 08:59 Multivitamins Therapeutic Tab (*Bkc) PO 1 tablet DAILY ANAM Administration Naphazoline HCl/Pheniramine Maleate 1 drop 07/15/25 17:00 Naphazoline/Pheniramine Ophth Soln 5 Ml Bottle EACH EYE QID PRN EYE IRRITATION Nitroglycerin 0.4 mg 07/15/25 14:00 Nitroglycerin Sl 0.4 Mg Tablet SUBLINGUAL Q5M PRN Chest Pain Pantoprazole Sodium 40 mg 07/15/25 09:00 07/19/25 08:59 Pantoprazole 40 Mg Tablet PO 40 mg QAM ANAM Administration Ropinirole HCl 4 mg 07/15/25 21:00 07/18/25 20:32 Ropinirole Hcl 1 Mg Tablet PO 4 mg HS ANAM Administration Senna/Docusate Sodium 1 tab 07/15/25 17:00 07/19/25 08:59 Senna/Docusate Sodium Tablet PO 1 tab BID ANAM Administration Sertraline HCl 100 mg 07/16/25 09:00 07/19/25 08:58 Sertraline Hcl 50 Mg Tablet PO 100 mg DAILY ANAM Administration Trazodone HCl 50 mg 07/15/25 21:00 07/18/25 20:32 Trazodone Hcl 50 Mg Tablet PO 50 mg HS ANAM Administration Radiology Results: ITS Impressions Chest X-Ray 07/14/25 19:11 Impression: Mild CHF Labs Labs: Laboratory Results - last 24 hr 07/18/25 07/18/25 07/19/25 16:31 20:55 08:06 POC Capillary Glucose 118 H 164 H 65 07/19/25 07/19/25 08:22 11:16 POC Capillary Glucose 80 121 H Hospitalist MIPS Advance Care Plan I have confirmed that the patient's Advanced Care Plan is present, code status is documented, or surrogate decision maker is listed in patient medical record.: Yes Medication Reconciliation I have utilized all available resources to obtain, update and review the patients current medications (includes all prescriptions, OTC, herbals, cannabis, and nutritional supplements).: Yes
--- NOTE | 2025-07-19 11:54 | ECG_ITS ---
Test Date: 2025-07-19 12:57:08 Measurements Intervals [place] Rate: 96 P: 0 OR: 0 QRS: -29 QRSD: 111 T: -66 QT: 389 QTc: 494 Interpretive Statements ATRIAL FLUTTER/TACHYCARDIA INTRAVENTRICULAR CONDUCTION DELAY ANTEROLATERAL INFARCT, OLD Compared to ECG 07/17/2025 10:49:17 NO SIGNIFICANT CHANGES Electronically Signed On 07-19-2025 14:49:06 TRANSIT SPECIALIST by Bryn Espinosa M.D.
[2025-07-19] MEDS: INSULIN GLARGINE (*BKC) 100 UNITS/ML 36 UNITS SUB-Q (20:39)
[2025-07-19] MEDS: MIRABEGRON 25 MG ER TABLET PO (20:43)
[2025-07-19] MEDS: ATORVASTATIN 40 MG TABLET 80 MG PO (20:44)
[2025-07-20] VITALS: PULSE 105
[2025-07-20 04:00] VITALS: PULSE 109
[2025-07-20 06:00] VITALS: BP 90/67; PULSE 98; RESP 18; TEMP 36.9; O2SAT 94
--- NOTE | 2025-07-20 06:37 | P.DS_ITS ---
DS: Admitting Diagnosis Discharge Date 07/20/2025 Admitting Diagnosis Palpitation, shortness of breath DS: Discharge Diagnosis Discharge Diagnosis (1) Atrial flutter with rapid ventricular response: Code(s): I48.92 - Unspecified atrial flutter Status: Acute Plan Please refer to hospital course for brief summary SVT, resolved Atrial fibrillation/flutter with RVR -unclear etiology, may be from sleep apnea. TSH WNL -SVT may have improved with adenosine, subsequently in atrial flutter /fibrillation with RVR -replace potassium and magnesium as needed -diltiazem 240 mg p.o. q.d. -cardiology following -anticoagulation Eliquis 5 mg b.i.d. -she may need outpatient atrial flutter ablation -continue monitoring telemetry: Heart rate going up to 130, irregular Chronic conditions -gout: Allopurinol -hyperlipidemia: Atorvastatin -anxiety/depression: BuSpar, sertraline -COPD: Continue home inhaler Breztri, p.r.n. benzonatate, as needed DuoNeb -supplements: Cholecalciferol weekly, ferrous sulfate -type 2 diabetes sliding scale insulin, Accu-Cheks ACS, hypoglycemia protocol, glargine 28 units daily and 42 units nightly -allergies: Codeine, Flonase -chronic diastolic heart failure: Normal EF, grade 1 diastolic function. Continue home Lasix with potassium supplement -insomnia: Trazodone -bowel regiment on Senokot -RLS: requip -Overactive bladder: mirabegron -GERD: Prilosec -obesity hypoventilation syndrome Diet: Diabetic diet with fluid restriction DVT prophylaxis: Eliquis Code status: Full code Disposition: home in 2-3 days, monitor in IMU DS: Summary Hospital Course Hospital Course: 74-year-old female presents from [facility] with shortness of breath and palpitations for 1 day. Chronically ill, bed-bound, diabetes mellitus with current long-term use of insulin and polyneuropathy, systolic heart failure (EF 60-65% on echocardiogram 07/28/2023), osteoarthritis, CKD stage 3, anemia of chronic disease, restless leg syndrome, COPD, obesity hypoventilation syndrome, CIRILO not using CPAP, chronic respiratory failure on 2 L continuous. Patient reported shortness of breath for 1 day, also developed palpitations, EMT arrived and patient was in SVT 230 beats per minute, received 6 mg adenosine, 12 mg adenosine, then 5 mg Lopressor IV. Some improvement in the heart rate. On arrival to [facility] ER on 07/14/2025 heart rate running in the 120s, a repeat EKG demonstrated atrial flutter with rapid ventricular rate. Patient was otherwise comfortable. Cardiology evaluated the patient and recommend possible atrial flutter ablation treatment can be determined as an outpatient. Patient is currently started on diltiazem 240 mg p.o. q.d. and Eliquis 5 mg p.o. b.i.d.. Discontinued albuterol and started Xopenex. On the day of discharge, the patient was seen and examined. Vital signs were stable. Physical exam were stable and labs were reviewed at length. Discharge instructions, medications, and follow-up appointments were discussed with the patient at length and all day questions were answered. ER warnings were given. Status at Discharge Cognitive/behavioral status at discharge: Stable Time Spent with Patient Time attestation: Total time spent providing and/or coordinating discharge services: 45 minutes Exam Narrative: - GENERAL: Pleasant morbidly obese woma n in No acute distress. - EYES: EOMI. Anicteric. - HENT: Moist mucous membranes. - LUNGS: Clear to auscultation bilateral ly, no wheezing - CARDIOVASCULAR: Irregularly irregular , tachycardic - ABDOMEN: Soft, non-tender and non-dist ended. - EXTREMITIES: No edema. Peripheral puls es 2+. - NEUROLOGIC: No focal neurological defi cits. CN II-XII grossly intact. - PSYCHIATRIC: Awake, Alert and oriented x 3. flat affect Const: General: comfortable and no acute distress Other: A&O x3, obese HENMT: Mouth: Yes moist mucous membranes Eyes: Pupils: Equal, round and reactive pupils present Neck: Neck: supple Resp: Effort & Inspection: normal respiratory effort Auscultation: crackles Cardio: Rate: regular rate Rhythm: regular rhythm Heart sounds: no murmurs GI: Inspection: non-distended : General: Yes bladder normal to palpation Bimanual exam- vagina & uterus: bladder normal to palpation Neuro: Cranial nerves: Yes Equal, round and reactive pupils present Other: Globally weak Extrem: Other: 1-2 +pitting edema bilateral lower extre mities with chronic skin thickening in the dependent portions Psych: Mental Status: mental status grossly normal DS: Data Data Completed and Pending Labs on day of discharge: Labs from last 24 hours 07/19/25 07/19/25 07/19/25 20:15 16:45 11:16 POC Capillary Glucose 152 H 134 H 121 H 07/19/25 07/19/25 08:22 08:06 POC Capillary Glucose 80 65 Discharge Plan Discharge Attending physician on discharge: Misael Waldrpo Consulting providers: Dariel Hardin Discharging Clinician: Misael Waldrop Anticipated Discharge Date/Time: 07/20/25 06:40 Patient Disposition: NH Retirement/Asst Living Activity: as tolerated Diet: heart healthy Discharge Instructions: Check blood pressure 1 to 2 times a day. Record and bring into your doctor for review. Call your doctor if your blood pressure is greater than 180/110 or less than 90/45. Walk with cane or other assist device. Take precautions to avoid falls. Rise slowly from a lying or sitting position. Pause before standing or walking. Contact your doctor or call 911 and come to the Emergency Room if you have any type of trauma, lightheadedness with standing or other worrisome symptoms. Avoid NSAIDs (ibuprofen, naproxen, Aleve). Tylenol is safe to take. Follow-up with your primary care provider in 1-2 weeks. Please call for appointment. Follow-up with Cardiology in 2-4 weeks. Please call for an appointment. Diabetic management as per primary care Thank you for using [facility] for your health care needs. Patient Instructions: Antibiotic Form, Apixaban (By mouth), Heart Failure (GEN), Atrial Flutter (DC), Acute Kidney Injury (DC), Hyperkalemia (DC) Patient Language: Armenian Stand Alone Forms: General Discharge Information Follow-up/Referrals: GerberKvng M.D. [Primary Care Provider] Dariel Hardin MD [Physician, Cardiology] Discharge Medications: New diltiazem HCl 240 mg Capsule,Ext.Rel 24h Degradable 240 mg PO QAM Qty: 30 0RF Eliquis 5 mg Tablet 5 mg PO Q12HR Qty: 60 0RF levalbuterol tartrate [Xopenex HFA] 45 mcg/actuation HFA aerosol inhaler 2 inh inhalation Q6H PRN (Reason: shortness of breath or wheezing) Qty: 15 0RF Continued hydrocortisone 1 % cream 1 applic topical DAILY PRN (Reason: alf use) Patient Comments: apply to left chest Rx Instructions: Left forearm apply each shift and prn itching ondansetron 4 mg tablet,disintegrating 4 mg PO Q6H PRN (Reason: Nausea And Vomiting) atorvastatin 80 mg tablet 80 mg PO HS Rx Instructions: TAKE 1 TABLET BY MOUTH EVERY DAY azelastine 0.05 % drops 1 drp ophthalmic (eye) BID Rx Instructions: INSTILL 1 DROP INTO EACH EYE TWICE A DAY sertraline 100 mg tablet 100 mg PO DAILY Rx Instructions: TAKE 1 TABLET BY MOUTH EVERY DAY allopurinol 100 mg tablet 100 mg PO BID Rx Instructions: TAKE 1 TABLET BY MOUTH TWICE A DAY ropinirole 2 mg tablet 4 mg PO HS gabapentin 300 mg capsule 300 mg PO TID Rx Instructions: TAKE 1 CAPSULE BY MOUTH THREE TIMES A DAY fluticasone propionate 50 mcg/actuation spray,suspension 1 spray intranasal DAILY Rx Instructions: INSTILL ONE SPRAY IN EACH NOSTRIL EVERY DAY (BULK) mirabegron [Myrbetriq] 25 mg tablet extended release 24 hr 25 mg PO HS Rx Instructions: TAKE ONE TABLET (25MG) BY MOUTH DAILY (VIAL) benzonatate 200 mg Capsule 200 mg PO Q8H PRN (Reason: Cough) buspirone 7.5 mg Tablet 15 mg PO TID omeprazole 20 mg Capsule,Delayed Release(Dr/Ec) 20 mg PO DAILY loratadine [Claritin] 10 mg Tablet 10 mg PO DAILY ferrous sulfate 325 mg (65 mg iron) Capsule, Extended Release 325 mg PO DAILY nitroglycerin 0.4 mg Tablet, Sublingual 0.4 mg SUBLINGUAL Q5M PRN (Reason: Chest Pain) Rx Instructions: do not exceed 3 doses per episode ipratropium-albuterol 0.5 mg-3 mg(2.5 mg base)/3 mL solution for nebulization 3 ml INHALATION TID PRN (Reason: shortness of breath or wheezing) tramadol 50 mg tablet 50 mg PO Q8H PRN (Reason: pain) potassium chloride 20 mEq tablet,ER particles/crystals 40 meq PO BID nystatin 100,000 unit/gram powder 1 applic TOPICAL BID PRN (Reason: skin irritation) Rx Instructions: apply to groin Breztri Aerosphere 160-9-4.8 mcg/actuation HFA aerosol inhaler 2 inh INHALATION BID loperamide [Anti-Diarrheal (loperamide)] 2 mg capsule 2 mg PO Q6H PRN (Reason: loose stool) furosemide 40 mg Tablet 40 mg PO DAILY insulin degludec 100 unit/mL (3 mL) insulin pen 28 unit SUBCUT .am Patient Comments: 28 units in the morning 42 units at bedtime trazodone 50 mg tablet 50 mg PO HS Senna Plus 8.6-50 mg capsule 1 tab-cap PO BID cholecalciferol (vitamin D3) 100 mcg (4,000 unit) capsule 50,000 unit PO WEEKLY Patient Comments: Once a day on multivitamin [Daily Multi-Vitamin] Tablet 1 tablet PO DAILY Discontinued albuterol sulfate 2.5 mg /3 mL (0.083 %) solution for nebulization 2.5 mg inhalation Q4-6H PRN (Reason: shortness of breath or wheezing) Qty: 180 3RF albuterol sulfate 90 mcg/actuation HFA aerosol inhaler 2 puff inhalation BID Rx Instructions: TAKE 2 INHALATIONS TWICE A DAY Eliquis 2.5 mg Tablet 2.5 mg PO BID Date of admission: 07/15/25 07:59 Primary Care Provider: Gerber,Kvng Admitting Provider: Latosha Cornelius Attending physician on admission: Latosha Cornelius Condition: Stable
[2025-07-20 08:00] VITALS: PULSE 106; O2SAT 96
[2025-07-20] MEDS: FLUTICASONE/UMECLIDIN/VILANTER 100-62.5-25 MCG ELLIPTA 1 PUFF INHALATION (08:06)
[2025-07-20] MEDS: dilTIAZem HCL CD 240 MG CAP.24HR PO (09:17)
[2025-07-20] MEDS: APIXABAN 5 MG TABLET PO (09:18)
[2025-07-20] MEDS: FUROSEMIDE 40 MG TABLET PO (09:18)
[2025-07-20] MEDS: SENNA/DOCUSATE SODIUM TABLET 1 TAB PO (09:18)
[2025-07-20] MEDS: MULTIVITAMINS THERAPEUTIC TAB (*BKC) 1 TABLET PO (09:18)
[2025-07-20] MEDS: GABAPENTIN 300 MG CAPSULE PO (09:18)
[2025-07-20] MEDS: LORATADINE 10 MG TABLET PO (09:18)
[2025-07-20] MEDS: SERTRALINE HCL 50 MG TABLET 100 MG PO (09:18)
[2025-07-20] MEDS: PANTOPRAZOLE 40 MG TABLET PO (09:18)
[2025-07-20] MEDS: FERROUS SULFATE 325 MG TABLET BY MOUTH (09:18)
[2025-07-20 09:19] VITALS: BP 105/77; PULSE 69; RESP 18; O2SAT 96
== END 2025-07-20 15:45 | DRG 308 ==
LOC: ANHED 18:55 → ANHIMU 19:57 → ANH3MED 07-20 06:41 → ANHIMU 07-23 16:07
PROVIDERS: Student in an Organized Health Care Education/Training Program; Admitting Provider General Practice; Emergency Provider Emergency Medicine; PCP Internal Medicine; Visit Provider General Practice
DX: I48.92 Unspecified atrial flutter (principal); I50.43 Acute on chronic combined systolic (congestive) and diastolic (congestive) heart failure; E66.2 Morbid (severe) obesity with alveolar hypoventilation; J96.11 Chronic respiratory failure with hypoxia; Z68.43 Body mass index [BMI] 50.0-59.9, adult; I13.0 Hypertensive heart and chronic kidney disease with heart failure and stage 1 through stage 4 chronic kidney disease, or unspecified chronic kidney disease; N17.9 Acute kidney failure, unspecified; N18.30 Chronic kidney disease, stage 3 unspecified; M19.90 Unspecified osteoarthritis, unspecified site; E11.22 Type 2 diabetes mellitus with diabetic chronic kidney disease; I47.10 Supraventricular tachycardia, unspecified; K57.90 Diverticulosis of intestine, part unspecified, without perforation or abscess without bleeding; E87.5 Hyperkalemia; J44.9 Chronic obstructive pulmonary disease, unspecified; R91.1 Solitary pulmonary nodule; D50.9 Iron deficiency anemia, unspecified; E11.42 Type 2 diabetes mellitus with diabetic polyneuropathy; F41.8 Other specified anxiety disorders; N32.81 Overactive bladder; D63.1 Anemia in chronic kidney disease; K44.9 Diaphragmatic hernia without obstruction or gangrene; G25.81 Restless legs syndrome; Z99.81 Dependence on supplemental oxygen; Z74.01 Bed confinement status; Z79.4 Long term (current) use of insulin; E78.5 Hyperlipidemia, unspecified; M10.9 Gout, unspecified; K21.9 Gastro-esophageal reflux disease without esophagitis
CPT/HCPCS: 36415; 71045; 80048; 80053; 82948; 83036; 83690; 83735; 83880; 84443; 84484; 85025; 85027; 85380; 85610; 85730; 93005; 94640; 96365; 96366; 96375; 99285; A9270; C8929; G0378; J1163; J1815; J1938; J3475; Q9957

== ENCOUNTER 2025-07-25 18:59 | Emergency (ER) | payer MEDICARE, MEDICAID, SELFPAY ==
[2025-07-25] VITALS (40 sets, daily range): BP systolic 87–123; BP diastolic 54–96; PULSE 70–235; RESP 10–34; TEMP 36.5–36.8; O2SAT 92–100
--- NOTE | ~2025-07-25 | XR_ITS ---
EXAMINATION: XR chest 1V portable DATE: 07/25/2025 20:40 INDICATION: Cardioverted TECHNIQUE: A single frontal view of the chest was obtained. COMPARISON: Chest x-ray dated 07/14/2025. FINDINGS: Cardiomegaly and atherosclerotic aorta. Mild vascular congestion of lungs with mildly increased interstitial markings on both sides. No pleural effusion IMPRESSION: Cardiomegaly and atherosclerotic aorta. Mildly vascular congestion of lungs with increased interstitial markings. No effusion. Likely mild interstitial edema. Reviewed, dictated and finalized at location T. TINGS CONSERVATOR IMPRESSION: Cardiomegaly and atherosclerotic aorta. Mildly vascular congestion of lungs with increased interstitial markings. No ef fusion. Likely mild interstitial edema.
--- NOTE | 2025-07-25 19:07 | PC.NURSE ---
pt was given 20mg of etomidate and 5mg of versed at 1906 pt was cardioverted at 1707 with 150j
[2025-07-25 19:43] LABS: Hematocrit 43.5 % (37.0-47.0); Hemoglobin 13.9 g/dL (12.0-15.0); Immature Granulocyte Percent A 0.4 % (0-0.5); Lymphocytes Absolute Auto 1.15 K/mm3 (0.9-3.2); Mean Corpuscular HGB Conc 32.0 g/dl (32-36); Mean Corpuscular Hemoglobin 30.6 pg (26-34); Mean Corpuscular Volume 95.8 fl (80-100); Nucleated Red Blood Cells Absolute Auto 0.000 K/mm3 (0.0-0.012); Nucleated Red Blood Cells Perc 0.0 % (0.0-0.2); Platelet Count Result 157 k/mm3 (150-375); Red Blood Count 4.54 M/mm3 (4.2-5.4); White Blood Count 6.8 K/mm3 (4.5-10.0)
[2025-07-25 19:54] LABS: Alanine Aminotransferase 14 U/L (6-35); Albumin Level 3.6 g/dL (3.5-5.1); Alkaline Phosphatase 86 U/L (38-126); Anion Gap 1 mmol/L (4-12); Aspartate Amino Transferase 26 U/L (14-36); Bilirubin,Total 0.5 mg/dL (0.2-1.3); Blood Urea Nitrogen 40 mg/dL (7-17); Calcium 8.6 mg/dL (8.4-10.2); Carbon Dioxide 32 mmol/L (22-30); Chloride 103 mmol/L (98-107); Estimated CRCL calculation 44 ml/min; Estimated Glomerular Filt Rate 32; Glucose 129 mg/dL (65-110); Potassium 5.1 mmol/L (3.4-5.0); Sodium 136 mmol/L (137-145); Total Protein 6.5 g/dL (6.3-8.2)
[2025-07-25 20:07] LABS: Troponin I 0.122 ng/mL (0.000-0.034)
--- NOTE | 2025-07-25 20:15 | ED.ARRPALP ---
HPI - Arrhythmia/Palpitations General Chief Complaint: Arrhythmia/Palpitations Stated Complaint: SVT RATE OF 230's, 90/P B/P. Time Seen by Provider: 07/25/25 19:03 History of Present Illness HPI narrative: Patient here with SVT HR in the 230s started at 3pm today; intermediate tried 2 doses of diltiazem w/o improvement, EMS tried adenosine 6mg and 12 mg w/o improvement. Patient reports palpitations. Related Data Home Medications ?Medication ?Instructions ?Recorded ?Confirmed ?Last Taken ?Type allopurinol 100 mg tablet 100 mg PO BID 12/30/22 07/14/25 Unknown History atorvastatin 80 mg tablet 80 mg PO HS 12/30/22 07/14/25 Unknown History azelastine 0.05 % eye drops 1 drp ophthalmic (eye) BID 12/30/22 07/14/25 Unknown History benzonatate 200 mg capsule 200 mg PO Q8H PRN Cough 12/30/22 07/14/25 Unknown History buspirone 7.5 mg tablet 15 mg PO TID 12/30/22 07/14/25 Unknown History fluticasone propionate 50 1 spray intranasal DAILY 12/30/22 07/14/25 Unknown History mcg/actuation nasal spray,suspension gabapentin 300 mg capsule 300 mg PO TID 12/30/22 07/14/25 Unknown History loratadine 10 mg tablet (Claritin) 10 mg PO DAILY 12/30/22 07/14/25 Unknown History mirabegron 25 mg tablet,extended 25 mg PO HS 12/30/22 07/14/25 Unknown History release 24 hr (Myrbetriq) omeprazole 20 mg capsule,delayed 20 mg PO DAILY 12/30/22 07/14/25 Unknown History release ropinirole 2 mg tablet 4 mg PO HS 12/30/22 07/14/25 Unknown History sertraline 100 mg tablet 100 mg PO DAILY 12/30/22 07/14/25 Unknown History hydrocortisone 1 % topical cream 1 applic topical DAILY PRN long 07/28/23 07/14/25 Unknown History term use ondansetron 4 mg disintegrating 4 mg PO Q6H PRN Nausea And Vomiting 07/28/23 07/14/25 Unknown History tablet ferrous sulfate 325 mg (65 mg 325 mg PO DAILY 09/29/23 07/14/25 Unknown History iron) capsule,extended release nitroglycerin 0.4 mg sublingual 0.4 mg sublingual Q5M PRN Chest 09/29/23 07/14/25 Unknown History tablet Pain budesonide 160 mcg-glycopyr 9 2 inh inhalation BID 11/18/24 07/14/25 Unknown History mcg-formot 4.8 mcg/actuation HFA inhaler (Breztri Aerosphere) furosemide 40 mg tablet 40 mg PO DAILY 11/18/24 07/14/25 Unknown History ipratropium 0.5 mg-albuterol 3 mg 3 ml inhalation TID PRN shortness 11/18/24 07/14/25 Unknown History (2.5 mg base)/3 mL nebulization of breath or wheezing soln loperamide 2 mg capsule 2 mg PO Q6H PRN loose stool 11/18/24 07/14/25 Unknown History (Anti-Diarrheal (loperamide)) nystatin 100,000 unit/gram topical 1 applic topical BID PRN skin 11/18/24 07/14/25 Unknown History powder irritation potassium chloride 20 mEq 40 meq PO BID 11/18/24 07/14/25 Unknown History tablet,extended release(part/cryst) tramadol 50 mg tablet 50 mg PO Q8H PRN pain 11/18/24 07/14/25 Unknown History cholecalciferol (vitamin D3) 100 50,000 unit PO WEEKLY 07/14/25 07/14/25 Unknown History mcg (4,000 unit) capsule insulin degludec 100 unit/mL (3 28 unit subcut .am 07/14/25 07/14/25 Unknown History mL) subcutaneous pen multivitamin (Daily Multi-Vitamin 1 tablet PO DAILY 07/14/25 07/14/25 Unknown History tablet) sennosides 8.6 mg-docusate sodium 1 tab-cap PO BID 07/14/25 07/14/25 Unknown History 50 mg capsule (Senna Plus) trazodone 50 mg tablet 50 mg PO HS 07/14/25 07/14/25 Unknown History Allergies Allergy/AdvReac Type Severity Reaction Status Date / Time NSAIDS (Non-Steroidal Allergy Unknown Other Verified 07/14/25 21:15 Anti-Inflamma Review of Systems Review of Systems: All systems reviewed & are unremarkable except as noted in HPI and below PMFSH Past Medical History Medical History Closed supracondylar fracture of femur Chronic respiratory failure with hypoxia, on home oxygen therapy Chronic obstructive pulmonary disease Morbid obesity Obstructive sleep apnea Obesity hypoventilation syndrome Insulin dependent type 2 diabetes mellitus Congestive heart failure Most recent echocardiogram showed normal LV systolic function and size with an EF of 60 to 65%, grade 1 diastolic dysfunction, biatrial enlargement, and an estimated PA SP of 63 mmHg. Thyroid nodule Renal lesion Lung nodule Osteoarthritis Recurrent UTI Postmenopausal Chronic kidney disease, stage III (moderate) Chronic midline low back pain Iron deficiency anemia Irritable bowel syndrome Diverticulosis Anemia of chronic disease Hyperlipidemia Diabetic polyneuropathy Depression with anxiety With history of panic attacks Essential (primary) hypertension Lymphedema of both lower extremities Overactive bladder With chronic urinary incontinence Beal catheter placed in the ER Polyarthritis of multiple sites Spondylosis Hiatal hernia Small hiatal hernia noted on barium swallow performed due to dysphagia and sensation of globus. Of the mid distal esophagus, repeated mid distal esophageal reflux Degenerative joint disease Restless leg syndrome Surgical History Surgical History History of colonoscopy with polypectomy Family History Family History Sibling , Sister Psychiatric illness Cancer Father Cancer Mother Cancer Cerebrovascular accident Son Cancer Grandparent Diabetes mellitus Social History Social History Social History: Surrogate medical decision maker: Code status: Full code. Smoking status: Never smoker Second hand tobacco smoke exposure: No Alcohol intake: former Alcohol use details: social Substance use: never Substance use type: marijuana Last use: 07/18/22 Lack of Transportation: No Lack of Food: Never True Current Housing: I Have Housing Concerned About Future Housing: No Difficulty Paying Gas/Electric Bills: No Difficulty Paying for Meds: No Currently Unemployed: No Education: Trade/Vocational Certificate Difficulty w/ Childcare or Family Care: No Living arrangements: intermediate Additional living arrangements comments: [facility]. Wheelchair-bound. Two children. 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 Spiritual care concerns: No Agree to blood products: Yes Exam Narrative: EXAMINATION OF ORGAN SYSTEMS/BODY AREAS: Constitutional: Vital signs per nursing GENERAL:[No acute distress, non-toxic appearing.] HEAD: Normal with no signs of head trauma. EYES: EOMI, conjunctiva normal ENT: Hearing grossly intact LUNGS: Nonlabored breathing. HEART: Rapid heart rate ABD: [Soft], [nontender to palpation] EXT: Normal range of motion SKIN: [No rashes or lesions.] NEURO: [Alert. No gross focal sensory or strength deficits.] PSYCH: Normal affect Course Vital Signs Vital signs: Vital Signs Pulse Rate 234 H 07/25/25 18:56 Respiratory Rate 25 H 07/25/25 18:56 Blood Pressure 99/68 L 07/25/25 18:56 Oxygen Delivery Room Air 07/25/25 18:56 Temperature 97.8 F 07/25/25 20:13 Pulse Rate 87 07/25/25 20:46 Respiratory Rate 15 07/25/25 20:46 Blood Pressure 104/64 07/25/25 20:46 Pulse Oximetry 99 07/25/25 20:16 Oxygen Delivery Nasal Cannula 07/25/25 19:28 Oxygen Flow Rate 3 07/25/25 19:28 MDM - Arrhythmia/Palpitations MDM Narrative Medical decision making narrative: Patient presenting here with rapid heartbeat, already failed attempt at control with diltiazem, fluids, vagal maneuvers and adenosine. On my evaluation she was tachycardic, blood pressure was slightly low at 90s over 60s, immediately placed on monitors, pads placed, on telemetry on my independent interpretation she does appear to be in SVT heart rate 234. I discussed with patient at this point we would have to likely cardiovert her, she is agreeable to this but a little bit worried about the pain. Given this I will give her dose of etomidate for anxiety/comfort. She tolerated responded to this very well, she was then shocked at 150V with immediate resolution and she is now in normal sinus rhythm. Repeat heart rate 88. I did re-evaluate her and she is denying any complaints now, she feels great. Troponin elevated though this is likely from prolonged SVT and the cardioversion. She is denying any chest pain and did not have any chest pain prior, she does have signs of possible fluid overload, and I do note that she got extra IV fluids and does have a history of CHF, she is not requiring more oxygen, I do feel she can still be stable for outpatient management and patient would like this too. I will therefore give her small dose of Lasix before she goes. Strict return precautions discussed. Lab Data 07/25/25 19:33 07/25/25 19:33 Labs: Lab Results 07/25/25 07/25/25 Range/Units 19:33 19:33 WBC 6.8 (4.5-10.0) K/mm3 RBC 4.54 (4.2-5.4) M/mm3 Hgb 13.9 (12.0-15.0) g/dL Hct 43.5 (37.0-47.0) % MCV 95.8 (80-100) fl MCH 30.6 (26-34) pg MCHC 32.0 (32-36) g/dl RDW 13.7 (11.5-14.5) % Plt Count 157 (150-375) k/mm3 MPV 10.4 (7.4-10.4) fl Immature Gran % (Auto) 0.4 (0-0.5) % Neut % (Auto) 70.6 (45.5-73.1) % Lymph % (Auto) 17.0 L (18.3-44.2) % [place] % (Auto) 8.6 H (2.6-8.5) % Eos % (Auto) 2.4 (0-4.4) % Baso % (Auto) 1.0 (0.2-1.2) % Lymph # (Auto) 1.15 (0.9-3.2) K/mm3 [place] # (Auto) 0.6 (0.1-0.6) K/mm3 Eos # (Auto) 0.2 (0-0.3) K/mm3 Baso # (Auto) 0.1 (0.0-0.1) K/mm3 Abs Immat Gran (auto) 0.03 (0.00-0.031) K/mm3 Absolute Neuts (auto) 4.8 (1.3-6.7) K/mm3 Absolute Nucleated RBC 0.000 (0.0-0.012) K/mm3 Nucleated RBC % 0.0 (0.0-0.2) % Sodium 136 L (137-145) mmol/L Potassium 5.1 H (3.4-5.0) mmol/L Chloride 103 (98-107) mmol/L Carbon Dioxide 32 H (22-30) mmol/L Anion Gap 1 L (4-12) mmol/L BUN 40 H (7-17) mg/dL Creatinine 1.57 H (0.7-1.0) mg/dL Estim Creat Clear Calc 44 ml/min Estimated GFR 32 L (59 - ) Glucose 129 H (65-110) mg/dL Calcium 8.6 (8.4-10.2) mg/dL Total Bilirubin 0.5 (0.2-1.3) mg/dL AST 26 (14-36) U/L ALT 14 (6-35) U/L Alkaline Phosphatase 86 (38-126) U/L Troponin I Pending 0.122 H* NT-Pro-B Natriuret Pep 3590 H (19.9-100) pg/mL Total Protein 6.5 (6.3-8.2) g/dL Albumin 3.6 (3.5-5.1) g/dL Critical Care Time Critical Care Time Critical Care Time: Yes Total Critical Care Time: 31 Discharge Plan Discharge Clinical Impression: SVT (supraventricular tachycardia) Patient Disposition: Home Condition: Stable Instructions: Supraventricular Tachycardia (ED) Additional Instructions: Please follow-up with your logistics associate, if your symptoms return, please return to the emergency room. Patient Language: Kazakh Prescriptions: No Action hydrocortisone 1 % cream 1 applic topical DAILY PRN (Reason: terminal manager use) Patient Comments: apply to left chest Rx Instructions: Left forearm apply each shift and prn itching ondansetron 4 mg tablet,disintegrating 4 mg PO Q6H PRN (Reason: Nausea And Vomiting) atorvastatin 80 mg tablet 80 mg PO HS Rx Instructions: TAKE 1 TABLET BY MOUTH EVERY DAY azelastine 0.05 % drops 1 drp ophthalmic (eye) BID Rx Instructions: INSTILL 1 DROP INTO EACH EYE TWICE A DAY sertraline 100 mg tablet 100 mg PO DAILY Rx Instructions: TAKE 1 TABLET BY MOUTH EVERY DAY allopurinol 100 mg tablet 100 mg PO BID Rx Instructions: TAKE 1 TABLET BY MOUTH TWICE A DAY ropinirole 2 mg tablet 4 mg PO HS gabapentin 300 mg capsule 300 mg PO TID Rx Instructions: TAKE 1 CAPSULE BY MOUTH THREE TIMES A DAY fluticasone propionate 50 mcg/actuation spray,suspension 1 spray intranasal DAILY Rx Instructions: INSTILL ONE SPRAY IN EACH NOSTRIL EVERY DAY (BULK) mirabegron [Myrbetriq] 25 mg tablet extended release 24 hr 25 mg PO HS Rx Instructions: TAKE ONE TABLET (25MG) BY MOUTH DAILY (VIAL) benzonatate 200 mg Capsule 200 mg PO Q8H PRN (Reason: Cough) buspirone 7.5 mg Tablet 15 mg PO TID omeprazole 20 mg Capsule,Delayed Release(Dr/Ec) 20 mg PO DAILY loratadine [Claritin] 10 mg Tablet 10 mg PO DAILY ferrous sulfate 325 mg (65 mg iron) Capsule, Extended Release 325 mg PO DAILY nitroglycerin 0.4 mg Tablet, Sublingual 0.4 mg SUBLINGUAL Q5M PRN (Reason: Chest Pain) Rx Instructions: do not exceed 3 doses per episode ipratropium-albuterol 0.5 mg-3 mg(2.5 mg base)/3 mL solution for nebulization 3 ml INHALATION TID PRN (Reason: shortness of breath or wheezing) tramadol 50 mg tablet 50 mg PO Q8H PRN (Reason: pain) potassium chloride 20 mEq tablet,ER particles/crystals 40 meq PO BID nystatin 100,000 unit/gram powder 1 applic TOPICAL BID PRN (Reason: skin irritation) Rx Instructions: apply to dee dee Stephenson Aerosphere 160-9-4.8 mcg/actuation HFA aerosol inhaler 2 inh INHALATION BID loperamide [Anti-Diarrheal (loperamide)] 2 mg capsule 2 mg PO Q6H PRN (Reason: loose stool) furosemide 40 mg Tablet 40 mg PO DAILY insulin degludec 100 unit/mL (3 mL) insulin pen 28 unit SUBCUT .am Patient Comments: 28 units in the morning 42 units at bedtime trazodone 50 mg tablet 50 mg PO HS Senna Plus 8.6-50 mg capsule 1 tab-cap PO BID cholecalciferol (vitamin D3) 100 mcg (4,000 unit) capsule 50,000 unit PO WEEKLY Patient Comments: Once a day on multivitamin [Daily Multi-Vitamin] Tablet 1 tablet PO DAILY diltiazem HCl 240 mg Capsule,Ext.Rel 24h Degradable 240 mg PO QAM Qty: 30 0RF Eliquis 5 mg Tablet 5 mg PO Q12HR Qty: 60 0RF levalbuterol tartrate [Xopenex HFA] 45 mcg/actuation HFA aerosol inhaler 2 inh inhalation Q6H PRN (Reason: shortness of breath or wheezing) Qty: 15 0RF Follow-up/Referrals: PrakashKvng M.D. [Primary Care Provider]
[2025-07-25 20:51] LABS: NT Pro B Type Natriuretic Pept 3590 pg/mL (19.9-100)
--- NOTE | 2025-07-25 21:28 | PC.NURSE ---
lasix currently on hold as pt has lower bp. ed charge aware
--- NOTE | 2025-07-25 22:33 | ECG_ITS ---
Test Date: 2025-07-25 19:10:47 Measurements Intervals [place] Rate: 110 P: 34 [place]: 154 QRS: -38 QRSD: 92 T: 27 QT: 320 QTc: 435 Interpretive Statements SINUS TACHYCARDIA LEFT AXIS DEVIATION [QRS AXIS < -30] LOW QRS VOLTAGE IN PRECORDIAL LEADS [QRS DEFLECTION < 1.0 mV IN CHEST LEADS] POSSIBLE ANTERIOR MYOCARDIAL INFARCTION , PROBABLY OLD [30 ms Q WAVE IN V3/V4, OR R < 0.2 mV IN V4] ABNORMAL ECG Compared to ECG 07/19/2025 12:57:08 Left-axis deviation now present Low QRS voltage now present Atrial flutter no longer present Intraventricular conduction delay no longer present Myocardial infarct finding still present Electronically Signed On 07-26-2025 08:50:02 FARM MANAGEMENT SUPERVISOR by Sha Grossman M.D.
--- NOTE | 2025-07-25 23:00 | PC.NURSE ---
Pt continues to have softer bp reads. EDP aware. Ok to not give iv lasix at this time.
== END 2025-07-25 23:38 ==
PROVIDERS: Emergency Provider Emergency Medicine; PCP Internal Medicine
DX: I47.10 Supraventricular tachycardia, unspecified (principal); J96.11 Chronic respiratory failure with hypoxia; Z99.81 Dependence on supplemental oxygen; J44.9 Chronic obstructive pulmonary disease, unspecified; E11.22 Type 2 diabetes mellitus with diabetic chronic kidney disease; I13.0 Hypertensive heart and chronic kidney disease with heart failure and stage 1 through stage 4 chronic kidney disease, or unspecified chronic kidney disease; N18.30 Chronic kidney disease, stage 3 unspecified; I50.9 Heart failure, unspecified; E11.42 Type 2 diabetes mellitus with diabetic polyneuropathy; E66.2 Morbid (severe) obesity with alveolar hypoventilation; Z68.44 Body mass index [BMI] 60.0-69.9, adult; D63.8 Anemia in other chronic diseases classified elsewhere; D50.9 Iron deficiency anemia, unspecified; N32.81 Overactive bladder; G25.81 Restless legs syndrome; M19.90 Unspecified osteoarthritis, unspecified site; F41.8 Other specified anxiety disorders; Z99.3 Dependence on wheelchair; Z87.440 Personal history of urinary (tract) infections; Z79.899 Other long term (current) drug therapy; Z79.4 Long term (current) use of insulin; Z79.01 Long term (current) use of anticoagulants; R94.31 Abnormal electrocardiogram [ECG] [EKG]
CPT/HCPCS: 36415; 71045; 80053; 83880; 84484; 85025; 93005; 99284; J2250